=== PATIENT | male | born 1950 | race Caucasian/White ===

== ENCOUNTER 2023-05-16 22:05 | Emergency (ER) | payer MEDICARE, BC, SELFPAY ==
[2023-05-16 22:09] VITALS: BP 111/67; PULSE 98; RESP 18; TEMP 37.7; O2SAT 98; BMI 21.3
--- NOTE | 2023-05-16 22:42 | ED_ITS ---
HPI - General Adult General Date Seen: 05/16/23 <Melissa Mack MD - Last Filed: 05/18/23 08:04> Chief complaint: Post Op Complication <Melissa Mack MD - Last Filed: 05/18/23 08:04> Stated complaint: Post-surgery - possible acute renal failure <Melissa Mack MD - Last Filed: 05/18/23 08:04> Time Seen by Provider: 05/16/23 22:27 <Melissa Mack MD - Last Filed: 05/18/23 08:04> Source: patient and family <Melissa Mack MD - Last Filed: 05/18/23 08:04> Mode of arrival: ambulatory <Melissa Mack MD - Last Filed: 05/18/23 08:04> Limitations: no limitations <Melissa Mack MD - Last Filed: 05/18/23 08:04> History of Present Illness HPI narrative: Patient is a 72-year-old who had left hip replacement at [facility] on Thursday, went home the same day. His daughter reports that on Thursday and even into he seemed to have a lot of energy but the past couple of days his energy level has been lower. He has a history of acute renal failure last time he had hip surgery and so his daughter was concerned that he might have renal failure again. He has been taking oxycodone, had some vomiting when he took tramadol and so he has been sticking to oxycodone. 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 He has had some soreness in the hip but says the incision is looked okay. No fevers. No further vomiting. He has not had a bowel movement since his surgery, is not on any kind of bowel regimen. Eating and drinking without difficulty. <Melissa Mack MD - Last Filed: 05/18/23 08:04> Related Data Home medications: Home Medications Medication Instructions Recorded Confirmed apixaban 2.5 mg tablet (Eliquis) 2.5 mg PO BID 05/16/23 05/16/23 ascorbic acid (vitamin C) 500 mg mg PO 05/16/23 capsule cholecalciferol (vitamin D3) 125 125 mcg PO DAILY 05/16/23 05/16/23 mcg (5,000 unit) capsule empagliflozin 10 mg tablet 10 mg PO DAILY 05/16/23 05/16/23 (Jardiance) eplerenone 50 mg tablet 100 mg PO DAILY 05/16/23 05/16/23 ferrous gluconate 324 mg (38 mg 324 mg PO DAILY 05/16/23 05/16/23 iron) tablet furosemide 20 mg tablet mg PO 05/16/23 metformin 500 mg tablet,extended 500 mg PO BID 05/16/23 05/16/23 release 24 hr omeprazole 20 mg capsule,delayed 20 mg PO BID 05/16/23 05/16/23 release oxycodone 5 mg tablet PO 05/16/23 rosuvastatin 20 mg tablet 20 mg PO QPM 05/16/23 05/16/23 sennosides 8.6 mg-docusate sodium 1 tab-cap PO BID 05/16/23 05/16/23 50 mg tablet (2-in-1 Laxative) tramadol 50 mg tablet PO 05/16/23 <Melissa Mack MD - Last Filed: 05/18/23 08:04> Allergies/adverse reactions: Allergies Allergy/AdvReac Type Severity Reaction Status Date / Time acetaminophen [From Tylenol] Allergy Severe Autoimmune Verified 05/16/23 22:22 Liver Disease celecoxib [From Celebrex] AdvReac Severe Acute Verified 05/16/23 22:22 Renal Failure NSAIDS (Non-Steroidal AdvReac Severe Acute Verified 05/16/23 22:22 Anti-Inflamma Renal Failure <Melissa Mack MD - Last Filed: 05/18/23 08:04> Review of Systems Status of ROS: Reports: 10 or more systems reviewed and unremarkable except as noted in History and below <Melissa Mack MD - Last Filed: 05/18/23 08:04> [facility] Social History: Social History Non-prescribed substance use: denies use <Melissa Mack MD - Last Filed: 05/18/23 08:04> Exam Narrative: Exam Narrative: Vital signs as noted above. In general, an alert, well-appearing patient. Looks comfortable. Head: Normocephalic, atraumatic. Eyes: Pupils are equal reactive. Extraocular movements are full. Conjunctivae are normal. ENT: Mucous membranes are moist. Neck: Supple without lymphadenopathy. Heart: Regular rate and rhythm. No murmur or rub. Lungs: Clear bilaterally. No increased work of breathing, crackles or wheezes. Abdomen: Soft and nontender. No organomegaly. Extremities: Well perfused. No edema. No calf tenderness. Pulses intact. Incision over the left hip has a dressing in place which was not removed. There is no surrounding erythema, swelling or significant bruising. Neurologic: Patient is alert and oriented to person and place. Speech is fluent. Face is symmetric. Moves all extremities equally. Affect: Normal. Skin: Warm and dry. Well perfused. <Melissa Mack MD - Last Filed: 05/18/23 08:04> Const: Vital Signs, click to edit/add: Vital Signs - 24 hr 05/16/23 22:09 05/16/23 23:37 Temperature 99.8 F H 98.6 F Pulse Rate [Pulse Oximeter] 98 Respiratory Rate 18 Blood Pressure [Ri ght Upper Arm] 111/67 Pulse Oximetry 98 Oxygen Delivery Me thod Room Air <Melissa Mack MD - Last Filed: 05/18/23 08:04> Vital Signs, click to edit/add: Vital Signs - 24 hr 05/16/23 22:09 05/16/23 23:37 Temperature 99.8 F H 98.6 F Pulse Rate [Pulse Oximeter] 98 Respiratory Rate 18 Blood Pressure [Ri ght Upper Arm] 111/67 Pulse Oximetry 98 Oxygen Delivery Me thod Room Air <Jeanie Ontiveros MD - Last Filed: 05/17/23 00:43> Documenting provider has reviewed patient's vital signs: yes <Melissa Mack MD - Last Filed: 05/18/23 08:04> Course Course ED Course: Overall exam is unremarkable. He does have a temperature of 99.8? here, I think reasonable to rule out a viral process as well as to do some labs to look for other infection although the wound itself looks good. Will of course also check kidney function, daughter feels he would benefit from some fluids as well. <Melissa Mack MD - Last Filed: 05/18/23 08:04> Reevaluation(s) Time of Reevaluation #1: 00:41 <Jeanie Ontiveros MD - Last Filed: 05/17/23 00:43> Reevaluation #1: Dr. Ontiveros- I assumed care from Dr. Mack. Repeat lactate is improving. TSH normal. Patient is starting to feel better after fluids. I suspect that postoperative fluid shifts combined with continued use of diuretics have contributed to the fatigue. There are no signs of acute renal failure or significant electrolyte abnormality. Viral swabs are negative. I reviewed his medication list, I do not see any offending agents. There has been no hypotension or tachycardia here. Mild initial low-grade fever, improved with no treatment. I suspect that he could be coming down with some mild virus, swabs were negative here. No signs of kidney failure. Likely mildly dehydrated from fluid shifts and or mild viral illness with no signs of significant disability. Recommend continued use of MiraLax, continuing through physical therapy postoperative regimen that was previously outlined. Alarm symptoms reviewed in writing. See discharge instructions. <Jeanie Ontiveros MD - Last Filed: 05/17/23 00:43> Vital Signs Vital signs: Initial Vital Signs Temperature 99.8 F H 05/16/23 22:09 Temperature Source Temporal Artery Scan 05/16/23 22:09 Pulse Rate 98 05/16/23 22:09 Respiratory Rate 18 05/16/23 22:09 Blood Pressure 111/67 05/16/23 22:09 Blood Pressure Mean 81 05/16/23 22:09 Blood Pressure Position Sitting 05/16/23 22:09 Pulse Oximetry 98 05/16/23 22:09 Oxygen Delivery Method Room Air 05/16/23 22:09 Vital Signs Temperature 99.8 F H 05/16/23 22:09 Pulse Rate 98 05/16/23 22:09 Respiratory Rate 18 05/16/23 22:09 Blood Pressure 111/67 05/16/23 22:09 Pulse Oximetry 98 05/16/23 22:09 Oxygen Delivery Method Room Air 05/16/23 22:09 Temperature 98.6 F 05/17/23 00:52 Pulse Rate 98 05/17/23 00:52 Respiratory Rate 18 05/17/23 00:52 Blood Pressure 111/67 05/17/23 00:52 Pulse Oximetry 98 05/16/23 22:09 Oxygen Delivery Method Room Air 05/16/23 22:09 <Melissa Mack MD - Last Filed: 05/18/23 08:04> Initial Vital Signs Temperature 99.8 F H 05/16/23 22:09 Temperature Source Temporal Artery Scan 05/16/23 22:09 Pulse Rate 98 05/16/23 22:09 Respiratory Rate 18 05/16/23 22:09 Blood Pressure 111/67 05/16/23 22:09 Blood Pressure Mean 81 05/16/23 22:09 Blood Pressure Position Sitting 05/16/23 22:09 Pulse Oximetry 98 05/16/23 22:09 Oxygen Delivery Method Room Air 05/16/23 22:09 Vital Signs Temperature 99.8 F H 05/16/23 22:09 Pulse Rate 98 05/16/23 22:09 Respiratory Rate 18 05/16/23 22:09 Blood Pressure 111/67 05/16/23 22:09 Pulse Oximetry 98 05/16/23 22:09 Oxygen Delivery Method Room Air 05/16/23 22:09 Temperature 98.6 F 05/17/23 00:52 Pulse Rate 98 05/17/23 00:52 Respiratory Rate 18 05/17/23 00:52 Blood Pressure 111/67 05/17/23 00:52 Pulse Oximetry 98 05/16/23 22:09 Oxygen Delivery Method Room Air 05/16/23 22:09 <Jeanie Ontiveros MD - Last Filed: 05/17/23 00:43> Medications Administered Medications: Discontinued Medications Generic Name Dose Route Start Last Admin Trade Name Freq PRN Reason Stop Dose Admin Sodium Chloride 1,000 mls @ 1,000 mls/hr 05/16/23 22:45 05/16/23 23:38 0.9 % Sodium Chloride 1000 Ml IV 05/16/23 23:44 Infused .Q1H XU Infusion Sodium Chloride 1,000 mls @ 1,000 mls/hr 05/16/23 23:45 05/17/23 00:17 0.9 % Sodium Chloride 1000 Ml IV 05/17/23 00:44 Infused .Q1H XU Infusion <Melissa Mack MD - Last Filed: 05/18/23 08:04> Discontinued Medications Generic Name Dose Route Start Last Admin Trade Name Freq PRN Reason Stop Dose Admin Sodium Chloride 1,000 mls @ 1,000 mls/hr 05/16/23 22:45 05/16/23 23:38 0.9 % Sodium Chloride 1000 Ml IV 05/16/23 23:44 Infused .Q1H XU Infusion Sodium Chloride 1,000 mls @ 1,000 mls/hr 05/16/23 23:45 05/17/23 00:17 0.9 % Sodium Chloride 1000 Ml IV 05/17/23 00:44 Infused .Q1H XU Infusion <Jeanie Ontiveros MD - Last Filed: 05/17/23 00:43> Medical Decision Making Lab Data Lab results reviewed: Yes I reviewed the patient's lab results <Jeanie Ontiveros MD - Last Filed: 05/17/23 00:43> Lab results narrative: No significant leukocytosis. Initially elevated lactate improved after IV fluids given. Normal TSH. Urinalysis does not show overwhelming dehydration, ketones or other major abnormalities. Overall reassuring. dr. ontiveros <Jeanie Ontiveros MD - Last Filed: 05/17/23 00:43> Labs: Lab Results 05/16/23 05/16/23 05/16/23 Range/Units 22:39 22:51 22:58 WBC 5.67 (4.50-11.00) K/uL RBC 3.10 L (4.30-5.90) m/uL Hgb 10.3 L (13.5-17.5) gm/dL Hct 30.2 L (37.0-53.0) % MCV 97 (80-100) fL MCH 33 (26-34) pg MCHC 34 (32-36) gm/dL RDW Coeff of Arelis 14.8 (11.5-15.5) % Plt Count 83 L (140-440) K/uL Neut % (Auto) 75.2 H (42.0-72.0) % Lymph % (Auto) 12.2 L (20-44) % [place] % (Auto) 10.1 (0.0-11.0) % Eos % (Auto) 2.1 (0.0-7.0) % Baso % (Auto) 0.2 (0.0-3.0) % Neut # (Auto) 4.30 (1.7-7.0) K/uL Lymph # (Auto) 0.70 L (0.90-2.90) K/uL [place] # (Auto) 0.60 (0.00-0.90) K/UL Eos # (Auto) 0.12 (0.00-0.50) K/uL Baso # (Auto) 0.01 (0.00-0.30) K/uL Abs Immat Gran (auto) 0.01 (0.00-0.30) K/uL Imm/Tot Granulo (auto) 0.2 % Sodium 130 L (135-149) mmol/L Potassium 3.5 L (3.6-5.1) mmol/L Chloride 98 (96-114) mmol/L Carbon Dioxide 23 (20-32) mmol/L Anion Gap 9 (7-15) mEq/L BUN 28 (7-30) mg/dL Creatinine 1.2 (0.5-1.5) mg/dL Estimated Creat Clear 48.51 Estimated GFR 63 ml/min Glucose 238 H (60-115) mg/dL Lactate 4.6 H* (0.5-1.9) mmol/L Calcium 8.8 (8.4-10.6) mg/dL Magnesium 1.9 (1.5-2.6) mg/dL TSH 2.920 (0.270-4.200) uIU/mL Urine Color Yellow (Yellow) Urine Appearance Clear (Clear) Urine pH 5.5 (5.0-8.5) Ur Specific Lyman 1.010 (1.000-1.030) Urine Protein Negative (Negative) Urine Glucose (UA) 3+ A (Negative) Urine Ketones Negative (Negative) Urine Blood Trace-intact A (Negative) Urine Nitrite Negative (Negative) Urine Bilirubin Negative (Negative) Urine Urobilinogen 1.0 (0.2-1.0) Ur Leukocyte Esterase Negative (Negative) Urine RBC 2-5 A (0-2) Urine WBC 2-5 (0-5) Ur Squamous Epith Cells Few (None-Few) Urine Bacteria Few A (None) SARS-CoV-2 (PCR) Negative SARS-CoV-2 (Negative) Influenza Type A (PCR) Negative PCR FLU A (Negative) Influenza Type B (PCR) Negative PCR FLU B (Negative) RSV (PCR) Negative PCR RSV (Negative) 05/17/23 Range/Units 00:20 WBC (4.50-11.00) K/uL RBC (4.30-5.90) m/uL Hgb (13.5-17.5) gm/dL Hct (37.0-53.0) % MCV (80-100) fL MCH (26-34) pg MCHC (32-36) gm/dL RDW Coeff of Arelis (11.5-15.5) % Plt Count (140-440) K/uL Neut % (Auto) (42.0-72.0) % Lymph % (Auto) (20-44) % [place] % (Auto) (0.0-11.0) % Eos % (Auto) (0.0-7.0) % Baso % (Auto) (0.0-3.0) % Neut # (Auto) (1.7-7.0) K/uL Lymph # (Auto) (0.90-2.90) K/uL [place] # (Auto) (0.00-0.90) K/UL Eos # (Auto) (0.00-0.50) K/uL Baso # (Auto) (0.00-0.30) K/uL Abs Immat Gran (auto) (0.00-0.30) K/uL Imm/Tot Granulo (auto) % Sodium (135-149) mmol/L Potassium (3.6-5.1) mmol/L Chloride (96-114) mmol/L Carbon Dioxide (20-32) mmol/L Anion Gap (7-15) mEq/L BUN (7-30) mg/dL Creatinine (0.5-1.5) mg/dL Estimated Creat Clear Estimated GFR ml/min Glucose (60-115) mg/dL Lactate 2.7 H (0.5-1.9) mmol/L Calcium (8.4-10.6) mg/dL Magnesium (1.5-2.6) mg/dL TSH (0.270-4.200) uIU/mL Urine Color (Yellow) Urine Appearance (Clear) Urine pH (5.0-8.5) Ur Specific Lyman (1.000-1.030) Urine Protein (Negative) Urine Glucose (UA) (Negative) Urine Ketones (Negative) Urine Blood (Negative) Urine Nitrite (Negative) Urine Bilirubin (Negative) Urine Urobilinogen (0.2-1.0) Ur Leukocyte Esterase (Negative) Urine RBC (0-2) Urine WBC (0-5) Ur Squamous Epith Cells (None-Few) Urine Bacteria (None) SARS-CoV-2 (PCR) (Negative) Influenza Type A (PCR) (Negative) Influenza Type B (PCR) (Negative) RSV (PCR) (Negative) <Melissa Mack MD - Last Filed: 05/18/23 08:04> Lab Results 05/16/23 05/16/23 05/16/23 Range/Units 22:39 22:51 22:58 WBC 5.67 (4.50-11.00) K/uL RBC 3.10 L (4.30-5.90) m/uL Hgb 10.3 L (13.5-17.5) gm/dL Hct 30.2 L (37.0-53.0) % MCV 97 (80-100) fL MCH 33 (26-34) pg MCHC 34 (32-36) gm/dL RDW Coeff of Arelis 14.8 (11.5-15.5) % Plt Count 83 L (140-440) K/uL Neut % (Auto) 75.2 H (42.0-72.0) % Lymph % (Auto) 12.2 L (20-44) % [place] % (Auto) 10.1 (0.0-11.0) % Eos % (Auto) 2.1 (0.0-7.0) % Baso % (Auto) 0.2 (0.0-3.0) % Neut # (Auto) 4.30 (1.7-7.0) K/uL Lymph # (Auto) 0.70 L (0.90-2.90) K/uL [place] # (Auto) 0.60 (0.00-0.90) K/UL Eos # (Auto) 0.12 (0.00-0.50) K/uL Baso # (Auto) 0.01 (0.00-0.30) K/uL Abs Immat Gran (auto) 0.01 (0.00-0.30) K/uL Imm/Tot Granulo (auto) 0.2 % Sodium 130 L (135-149) mmol/L Potassium 3.5 L (3.6-5.1) mmol/L Chloride 98 (96-114) mmol/L Carbon Dioxide 23 (20-32) mmol/L Anion Gap 9 (7-15) mEq/L BUN 28 (7-30) mg/dL Creatinine 1.2 (0.5-1.5) mg/dL Estimated Creat Clear 48.51 Estimated GFR 63 ml/min Glucose 238 H (60-115) mg/dL Lactate 4.6 H* (0.5-1.9) mmol/L Calcium 8.8 (8.4-10.6) mg/dL Magnesium 1.9 (1.5-2.6) mg/dL TSH 2.920 (0.270-4.200) uIU/mL Urine Color Yellow (Yellow) Urine Appearance Clear (Clear) Urine pH 5.5 (5.0-8.5) Ur Specific Lyman 1.010 (1.000-1.030) Urine Protein Negative (Negative) Urine Glucose (UA) 3+ A (Negative) Urine Ketones Negative (Negative) Urine Blood Trace-intact A (Negative) Urine Nitrite Negative (Negative) Urine Bilirubin Negative (Negative) Urine Urobilinogen 1.0 (0.2-1.0) Ur Leukocyte Esterase Negative (Negative) Urine RBC 2-5 A (0-2) Urine WBC 2-5 (0-5) Ur Squamous Epith Cells Few (None-Few) Urine Bacteria Few A (None) SARS-CoV-2 (PCR) Negative SARS-CoV-2 (Negative) Influenza Type A (PCR) Negative PCR FLU A (Negative) Influenza Type B (PCR) Negative PCR FLU B (Negative) RSV (PCR) Negative PCR RSV (Negative) 05/17/23 Range/Units 00:20 WBC (4.50-11.00) K/uL RBC (4.30-5.90) m/uL Hgb (13.5-17.5) gm/dL Hct (37.0-53.0) % MCV (80-100) fL MCH (26-34) pg MCHC (32-36) gm/dL RDW Coeff of Arelis (11.5-15.5) % Plt Count (140-440) K/uL Neut % (Auto) (42.0-72.0) % Lymph % (Auto) (20-44) % [place] % (Auto) (0.0-11.0) % Eos % (Auto) (0.0-7.0) % Baso % (Auto) (0.0-3.0) % Neut # (Auto) (1.7-7.0) K/uL Lymph # (Auto) (0.90-2.90) K/uL [place] # (Auto) (0.00-0.90) K/UL Eos # (Auto) (0.00-0.50) K/uL Baso # (Auto) (0.00-0.30) K/uL Abs Immat Gran (auto) (0.00-0.30) K/uL Imm/Tot Granulo (auto) % Sodium (135-149) mmol/L Potassium (3.6-5.1) mmol/L Chloride (96-114) mmol/L Carbon Dioxide (20-32) mmol/L Anion Gap (7-15) mEq/L BUN (7-30) mg/dL Creatinine (0.5-1.5) mg/dL Estimated Creat Clear Estimated GFR ml/min Glucose (60-115) mg/dL Lactate 2.7 H (0.5-1.9) mmol/L Calcium (8.4-10.6) mg/dL Magnesium (1.5-2.6) mg/dL TSH (0.270-4.200) uIU/mL Urine Color (Yellow) Urine Appearance (Clear) Urine pH (5.0-8.5) Ur Specific Lyman (1.000-1.030) Urine Protein (Negative) Urine Glucose (UA) (Negative) Urine Ketones (Negative) Urine Blood (Negative) Urine Nitrite (Negative) Urine Bilirubin (Negative) Urine Urobilinogen (0.2-1.0) Ur Leukocyte Esterase (Negative) Urine RBC (0-2) Urine WBC (0-5) Ur Squamous Epith Cells (None-Few) Urine Bacteria (None) SARS-CoV-2 (PCR) (Negative) Influenza Type A (PCR) (Negative) Influenza Type B (PCR) (Negative) RSV (PCR) (Negative) <Jeanie Ontiveros MD - Last Filed: 05/17/23 00:43> Discharge Plan Discharge Clinical Impression: Dehydration <Melissa Mack MD - Last Filed: 05/18/23 08:04> Patient Disposition: Home, Self-Care <Melissa Mack MD - Last Filed: 05/18/23 08:04> Condition: Improved <Melissa Mack MD - Last Filed: 05/18/23 08:04> Instructions: Dehydration (ED) <Melissa Mack MD - Last Filed: 05/18/23 08:04> Additional Instructions: Continue to work on hydration at home. I would recommend he start MiraLax 1-2 cap fulls daily until you are having soft bowel movements. If you have significant abdominal pain, vomiting, develop fevers or other worsening, return for re-evaluation. Workup today shows kidney function to be within normal limits with a creatinine of 1.2. Viral swabs for influenza and COVID were also negative, electrolytes look good too. Continue to drink plenty of fluids, move and increase your activity per the instructions previously given by your surgical team. If things seem to be worsening again, please return to the emergency department. <Melissa Mack MD - Last Filed: 05/18/23 08:04> Activity Level: Activity as Tolerated <Melissa Mack MD - Last Filed: 05/18/23 08:04> Activity as Tolerated <Jeanie Ontiveros MD - Last Filed: 05/17/23 00:43> Discharge Diet: Regular <Melissa Mack MD - Last Filed: 05/18/23 08:04> Regular <Jeanie Ontiveros MD - Last Filed: 05/17/23 00:43> Prescriptions: No Action Eliquis 2.5 mg tablet 2.5 mg PO BID Jardiance 10 mg tablet 10 mg PO DAILY ascorbic acid (vitamin C) 500 mg capsule PO cholecalciferol (vitamin D3) 125 mcg (5,000 unit) capsule 125 mcg PO DAILY furosemide 20 mg tablet PO eplerenone 50 mg tablet 100 mg PO DAILY ferrous gluconate 324 mg (38 mg iron) tablet 324 mg PO DAILY tramadol 50 mg tablet PO omeprazole 20 mg capsule,delayed release(DR/EC) 20 mg PO BID metformin 500 mg tablet extended release 24 hr 500 mg PO BID oxycodone 5 mg tablet PO rosuvastatin 20 mg tablet 20 mg PO QPM sennosides-docusate sodium [2-in-1 Laxative] 8.6-50 mg tablet 1 tab-cap PO BID <Melissa Mack MD - Last Filed: 05/18/23 08:04> Follow Up/Referrals: Provider,Not a Local [Referring] - <Melissa Mack MD - Last Filed: 05/18/23 08:04> Stand Alone Forms: MyHealth Info Instructions <Melissa Mack MD - Last Filed: 05/18/23 08:04>
[2023-05-16 23:04] LABS: Appearance Urine Clear (Clear); Bilirubin Urine Negative (Negative); Blood Urine Trace-intact (Negative); Color Urine Yellow (Yellow); Glucose Urine 3+ (Negative); Ketones Urine Negative (Negative); Leukocyte Esterase Urine Negative (Negative); Nitrite Urine Negative (Negative); Protein Urine Negative (Negative); pH Urine 5.5 (5.0-8.5)
[2023-05-16] MEDS: 0.9 % SODIUM CHLORIDE 1000 ml 1,000 ML IV ×2 (23:06→23:43)
[2023-05-16 23:12] LABS: Basophils Absolute Auto 0.01 K/uL (0.00-0.30); Basophils Percent Auto 0.2 % (0.0-3.0); Eosinophils Absolute Auto 0.12 K/uL (0.00-0.50); Eosinophils Percent Auto 2.1 % (0.0-7.0); Hematocrit 30.2 % (37.0-53.0); Hemoglobin* 10.3 gm/dL (13.5-17.5); Immature Granulocytes Abs Auto 0.01 K/uL (0.00-0.30); Immature Granulocytes Pct Auto 0.2 %; Lymphocytes Percent Auto 12.2 % (20-44); Mean Corpuscular HGB Conc 34 gm/dL (32-36); Mean Corpuscular Hemoglobin 33 pg (26-34); Mean Corpuscular Volume 97 fL (80-100); Monocytes Percent Auto 10.1 % (0.0-11.0); Neutrophils Percent Auto 75.2 % (42.0-72.0); Platelet Count* 83 K/uL (140-440); RDW Coefficient of Variation % 14.8 % (11.5-15.5); White Blood Count* 5.67 K/uL (4.50-11.00)
[2023-05-16 23:18] LABS: Slide Review Reflex No
[2023-05-16 23:28] LABS: Chloride* 98 mmol/L (96-114); Potassium* 3.5 mmol/L (3.6-5.1); Sodium* 130 mmol/L (135-149)
[2023-05-16 23:30] LABS: Creatinine* 1.2 mg/dL (0.5-1.5); Est. Creatinine Clearance* 48.51; Estimated Glomerular Filt Rate 63 ml/min
[2023-05-16 23:31] LABS: Anion Gap 9 mEq/L (7-15); Blood Urea Nitrogen* 28 mg/dL (7-30); Calcium* 8.8 mg/dL (8.4-10.6); Carbon Dioxide* 23 mmol/L (20-32); Glucose* 238 mg/dL (60-115); Lactate Sepsis w/Reflex* 4.6 mmol/L (0.5-1.9); Magnesium* 1.9 mg/dL (1.5-2.6)
[2023-05-16 23:36] LABS: PCR FLU A Negative PCR FLU A (Negative); PCR FLU B Negative PCR FLU B (Negative); PCR RSV Negative PCR RSV (Negative); SARS PCR* Negative SARS-CoV-2 (Negative)
[2023-05-16 23:37] VITALS: TEMP 37
[2023-05-17 00:21] LABS: Bacteria Urine Few; Squamous Epithelial Cell Urine Few (None-Few)
[2023-05-17 00:29] LABS: Lactate* 2.7 mmol/L (0.5-1.9)
[2023-05-17 00:52] VITALS: BP 111/67; PULSE 98; RESP 18; TEMP 37
== END 2023-05-17 00:52 | disposition home or self-care (01) ==
PROVIDERS: Emergency Medicine; Emergency Provider Family Medicine; PCP Family Medicine
DX: E86.0 Dehydration (principal)
CPT/HCPCS: 36415; 80048; 81001; 83605; 83735; 84443; 85025; 87086; 87631; 99283; 99284; J7030

== ENCOUNTER 2023-09-09 20:58 | Outpatient (CLI) | payer MEDICARE, BC, SELFPAY ==
--- OUTSIDE RECORDS SUMMARY | 2023-09-12 06:10 | XMS_ITS | Referral Summary ---
Author Organization [facility] Address [address] [place] [address] Care Team Providers Care Wrist Hemmer Name Role Phone Elsewhere, Pcp Primary Care Provider Unavailabl e Source Comments Patient records contain information from all sites at [facility]. For routine questions regarding patient records, call [phone] during business hours, M-F 8:00 AM - 5:00 PM Central Time. Record requests for emergency care only can be directed to [phone] at any time.[facility] Encounters Date Type Department Care Team Description 09/09/2023 10:39 PM CDT - 09/10/2023 12:00 PM CDT Hospital Encounter [facility], Tenth Floor [address] [place] [address] Elias Stuart M.D. Huebert, Robert C, M.D. Colitis (Primary Dx) Discharge Disposition: Home or Self Care 09/04/2023 8:05 AM CDT - 09/05/2023 12:54 PM CDT Hospital Encounter [facility], Tenth Floor [address] [place] [address] Elen Gomes M.D., Ph.D. Discharge Disposition: Home or Self Care 09/04/2023 1:00 PM CDT Anesthesia Event [facility] [address] [place] [address] Abner Cohen M.D. 09/04/2023 12:33 PM CDT - 09/04/2023 3:32 PM CDT Surgery [facility] [address] [place] [address] Elen Gomes M.D., Ph.D. REPAIR HERNIA UMBILICAL WITHOUT MESH. 09/03/2023 12:08 PM CDT - 09/03/2023 11:59 PM CDT Hospital Encounter Department of Radiology, [facility], in [place], [place] [address] [place] [address] Elen Gomes M.D., Ph.D. Hydrocele Discharge Disposition: Home or Self Care 09/03/2023 11:00 AM CDT Office Visit [facility] in [place], [place] [address] [place] [address] Elen Gomes M.D., Ph.D. Chronic Liver Disease (Primary Dx) 09/01/2023 Orders Only [facility] in [place], [place] [address] [place] [phone] Elen Gomes M.D., Ph.D. Hydrocele (Primary Dx) 08/28/2023 Remote Monitoring Remote Patient Monitoring [facility] [address] [place] [address] Briana Mayo 08/24/2023 10:17 PM CDT - 08/28/2023 1:11 PM CDT Hospital Encounter [facility], [facility], Sixth Floor [address] [place] [address] Yao Yoon M.D. Laack, Torrey A, M.D. Sievers, Ashley E, M.D. Moore, Peter J, M.D. Gypsy Lu M.D. Pearson, Randall K, M.D. Hoskote, Sumedh S, M.B.BMarcusS. Pneumonia (Primary Dx); Food In Esophagus Causing Other Injury Initial; Acidosis Lactic Discharge Disposition: Home or Self Care 08/27/2023 2:05 PM CDT Ancillary Procedure Department of Nursing 08/27/2023 Orders Only Division of Gastroenterology in [place], [place] [address] [place] [phone] Fabiola Reyes M.D. Gastro-Esophageal Reflux Disease With Esophagitis Without Bleeding (Primary Dx); Secondary Esophageal Varices Without Bleeding (HCC); Hypertension Portal (HCC); Stricture Esophagus 08/25/2023 7:30 AM CDT Ancillary Procedure Department of Gastroenterology 08/25/2023 8:09 AM CDT Anesthesia Event Division of Gastroenterology in [place], [place] [address] [place] [phone] Ken Franks, JENNIFER, METHODS ENGINEER 08/12/2023 11:33 AM CDT - 08/12/2023 11:59 PM CDT Hospital Encounter Department of Laboratory Medicine and Pathology, [facility] in [place], [place] [address] [place] [phone] Marv Myrick M.D., M.P.H. Alcoholic Cirrhosis Of Liver With Ascites (HCC) Discharge Disposition: Home or Self Care 08/12/2023 1:30 PM CDT Comprehensive [facility] in [place], [place] [address] [place] [phone] Elen Gomes M.D., Ph.D. Hernia Inguinal Bilateral (Primary Dx); Hernia Inguinal 08/12/2023 10:14 AM CDT - 08/12/2023 11:32 AM CDT Hospital Encounter Department of Radiology, [facility] in [place], [place] [address] [place] [phone] Whitney Feliciano P.A.-C., P.A. 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 Hernia Inguinal (Primary Dx); Alcoholic Cirrhosis Of Liver With Ascites (HCC) 07/13/2023 12:30 PM CDT Virtual Visit Division of Gastroenterology in [place], [place] [address] [place] [phone] Marv Myrick M.D., M.P.H. Hepatitis Autoimmune (HCC); Cirrhosis Nonalcoholic (HCC); Ascites Chronic 07/10/2023 1:56 PM CDT - 07/10/2023 3:28 PM CDT Hospital Encounter Department of Radiology, [facility] in [place], [place] [address] [place] [address] Marv Myrick M.D., M.P.H. Hepatitis Autoimmune (HCC); Cirrhosis Nonalcoholic (HCC); Ascites Chronic Discharge Disposition: Home or Self Care 07/07/2023 Clinical Communication Division of Gastroenterology in [address] [phone] Marv Myrick M.D., M.P.H. Hepatobiliary; Order Request from Last 3 Months Allergies Active Allergy Reactions Criticality Noted Date Comments 2-Octyl Cyanoacrylate Itching 05/28/2023 Acetaminophen Other (see comments),GI intolerance High 09/02/2011 drug induced hepititis Drug induced Hepatitis Drug induced Hepatitis Celecoxib Other (see comments) 06/12/2020 Patient hospitalized for Acute Kidney Injury for 4 days after taking Celebrex preop while on Lisinopril Patient hospitalized for Acute Kidney Injury for 4 days after taking Celebrex preop while on Lisinopril Kidney Failure Medications Medication Sig Dispensed Refills Start Date End Date Status cholecalciferol (VITAMIN D3) 125 mcg (5,000 Unit) tablet Take 125 mcg by mouth daily. Active metFORMIN XR (GLUCOPHAGE-XR) 500 mg 24 hr tablet Take 500 mg by mouth 2 (two) times a day. Active ferrous gluconate (FERGON) 324 mg (38 mg iron) tablet Take 324 mg by mouth daily. Active furosemide (LASIX) 20 mg tablet Take 40 mg by mouth 2 (two) times a day. 07/05/2020 Active omeprazole (PriLOSEC) [address] capsule Take 20 mg by mouth every morning before breakfast. 07/20/2020 Active rosuvastatin (CRESTOR) 20 mg tablet Take 20 mg by mouth daily. 05/15/2020 Active empagliflozin (JARDIANCE) 10 mg tablet Take 1 tablet by mouth daily. 12/05/2020 Active eplerenone (INSPRA) 50 mg tabletIndicatio ns:Ascites Chronic Take 2 tablets (100 mg total) by mouth daily. 180 tablet 3 01/12/2023 01/12/20 24 Active polyethylene glycol (MIRALAX) 17 gram powder packet Take 1 packet (17 g total) by mouth daily. Dissolve each 17 g dose in 240 mLs (8 ounces) of beverage. 20 packet 08/29/2023 Active sennosides-docu sate sodium (SENOKOT-S) 8.6-50 mg per tablet Take 2 tablets by mouth 2 (two) times a day. 30 tablet 08/28/2023 Active ascorbic acid, vitamin C, (VITAMIN C) 500 mg tablet Take 500 mg by mouth daily. 08/25/19 24 Discontinued(The rapy completed) apixaban (ELIQUIS) 2.5 mg tablet Take 1 tablet (2.5 mg total) by mouth 2 (two) times a day. Take to minimize the risk for developing a blood clot. After your last dose of this medication start taking aspirin if this was recommended. 84 tablet 05/13/2023 08/25/19 24 Discontinued(The rapy completed) traMADoL (ULTRAM) 50 mg tabletIndicatio ns:Acute Pain Exception Take 1 tablet (50 mg total) by mouth every 4 (four) hours as needed for pain Indications: Acute Pain Exception. 25 tablet 05/13/2023 08/25/19 24 Discontinued(The rapy completed) oxyCODONE (ROXICODONE) 5 mg immediate release tabletIndicatio ns:Acute Pain Exception Take 1 tablet (5 mg total) by mouth every 4 (four) hours as needed for severe pain or score 7-10 of 10 Indication: Acute Pain Exception. 25 tablet 05/13/2023 08/25/19 24 Discontinued(The rapy completed) metroNIDAZOLE (FLAGYL) 500 mg tabletIndicatio ns:Blood stream infection Take 1 tablet (500 mg total) by mouth 3 (three) times a day for 11 days Indications: Blood stream infection. 33 tablet 08/28/2023 09/10/19 24 Discontinued levoFLOXacin (LEVAQUIN) 750 mg tablet Take 1 tablet (750 mg total) by mouth every morning before breakfast for 10 days. 10 tablet 08/29/2023 09/10/19 24 Discontinued oxyCODONE (ROXICODONE) 5 mg immediate release tabletIndicatio ns:Acute Pain Take 1 tablet (5 mg total) by mouth every 4 (four) hours as needed for pain for up to 3 days Indication: Acute Pain. 18 tablet 09/05/2023 09/10/19 24 Active Problems Problem Noted Date Diagnosed Date Colitis 09/10/2023 Abdominal Pain 09/10/2023 Hernia Inguinal Left 09/04/2023 Pneumonitis Due To Inhalation Of Food And Vomit 08/26/2023 Sepsis 08/25/2023 Primary Osteoarthritis Hip Left 11/19/2022 Thrombocytopenia 05/12/2022 Thrombosis Deep Vein Personal History 02/01/2022 Diabetes Mellitus Type 2 08/07/2021 Hypertension Essential Primary 08/07/2021 Ascites 07/20/2020 Gastroesophageal Reflux Disease NOS 06/25/2020 Hypertension Portal 06/25/2020 Hyperlipidemia 06/25/2020 Hepatitis Autoimmune 10/13/2018 Secondary Esophageal Varices Without Bleeding Unspecified Cirrhosis Of Liver 08/25/2018 Stricture Esophagus Resolved Problems Problem Noted Date Diagnosed Date Resolved Date Pneumonia 08/25/2023 08/26/2023 Thrombosis Deep Vein Acute Femoral Right 05/12/2023 05/12/2023 Immunizations Name Administration Dates Next Due Influenza Split 12/22/2007 Social History Tobacco Use Types Packs/Day Years Used Date Smoking Tobacco: Never Smokeless Tobacco: Never Alcohol Use Standard Drinks/Week Comments Not Currently 0 (1 standard drink = 0.6 oz pur e alcohol) Don? t drink [facility] Utilities Answer Date Recorded In the past 12 months has th e electric, gas, oil, or water company threatened to shut off services in your home? No 09/10/2023 Humiliation, Afraid, Rape, and Kick questionnair e Answer Date Recorded Within the last year, have y ou been afraid of your partner or ex-partner? No 09/10/2023 Within the last year, have y ou been humiliated or emotionally abused in other ways by your partner or ex-partner? No Within the last year, have y ou been kicked, hit, slapped, or otherwise physically hurt by your partner or ex-partner? No 09/10/2023 Within the last year, have y ou been raped or forced to have any kind of sexual activity by your partner or ex-partner? No 09/10/2023 Social Connection and Isolat ion Panel [NHANES] Answer Date Recorded In a typical week, how many times do you talk on the phone with family, friends, or neighbors? More than three times a week 04/27/2022 How often do you get togethe r with friends or relatives? Twice a week 04/27/2022 How often do you attend chur ch or yazidism services? More than 4 times per year 04/27/2022 Do you belong to any clubs o r organizations such as nondenominational groups, unions, fraternal or athletic groups, or school groups? Yes 04/27/2022 How often do you attend meet ings of the clubs or organizations you belong to? More than 4 times per year 04/27/2022 Are you , , di vorced, , never , or living with a partner? 04/27/2022 AUDIT-C Answer Date Recorded Q1: How often do you have a drink containing alc ohol? Never 04/27/2022 Average Number of Drinks Not on file 023 Frequency of Binge Drinking Not on file 07/2022 Overall Financial Resource Strain (CARDIA) Answe r Date Recorded How hard is it for you to pa y for the very basics like food, housing, medical care, and heating? Not hard at all 04/27/2022 [facility] of Occupat ional Health - Occupational Stress Questionnaire Answer Date Recorded Do you feel stress - tense, restless, nervous, or anxious, or unable to sleep at night because your mind is troubled all the time - these days? Not at all 04/27/2022 Exercise Vital Sign Answer Date Recorde d On average, how many days pe r week do you engage in moderate to strenuous exercise (like a brisk walk)? 0 days 05/07/2023 On average, how many minutes do you engage in exercise at this level? 0 min 05/07/2023 Hunger Vital Sign Answer Date Recorded Within the past 12 months, y ou worried that your food would run out before you got the money to buy more. Never true 09/10/19 24 Within the past 12 months, t he food you bought just didn't last and you didn't have money to get more. Never true 09/10/2023 PRAPARE - Transportation Answer Date Re corded In the past 12 months, has l ack of transportation kept you from medical appointments or from getting medications? No 08/22 In the past 12 months, has l ack of transportation kept you from meetings, work, or from getting things needed for daily living? No 09/10/2023 Nutrition Answer Date Recorded On average, how many serving s of fruits and vegetables do you eat per day (serving size is equal to 1 cup or approximately the size of a tennis ball)? 3-5 05/07/2023 Dental Answer Date Recorded Dental: Regular Dentist Yes 11/12/19 Employment Answer Date Recorded Employment status Retired 05/07/2023 Housing Stability Answer Date Recorded What is your living situation today? I have a [facility] place to live 09/10/2023 Education Answer Date Recorded What is the highest level of school you have completed or the highest degree you have received? Bachelor's degree (e.g., BA, AB, BS) 11/11/2020 Sex and Gender Information Value Date Recorded Sex Assigned at Male 02/12/2021 6:18 PM HOURLY SIGN LANGUAGE INTERPRETER Gender Identity Male 11/11/2020 11:30 AM CDT Sexual Orientation Straight 11/11/2020 11 :30 AM CDT Last Filed Vital Signs Vital Sign Reading Time Taken Comments Blood Pressure 94/60 09/10/2023 11:15 AM CDT Pulse 66 09/10/2023 11:15 AM CDT Temperature 36.4 ??C (97.5 ??F) 09/10/2023 1 1:15 AM CDT Respiratory Rate 18 09/10/2023 11:1 5 AM CDT Oxygen Saturation 97% 09/10/2023 11: 15 AM CDT Inhaled Oxygen Concentration - - Weight 57.5 kg (126 lb 12.2 oz) 09/10/2023 5:52 AM CDT Height 172.7 cm (5' 7.99) 09/10/2023 5:52 AM CD T Body Mass Index 19.28 09/10/2023 5:52 AM CDT Plan of Treatment Upcoming Encounters Date Type Department Care Team (Latest Contact Info) Description 09/17/2023 10:30 AM CDT [facility] [place], [place] [address] [place] [phone] Elen Gomes M.D., Ph.D. [address] [place] [phone] 10/16/2023 11:00 AM CDT Appointment Division of Gastroenterology in [place], [place] [address] [place] [phone] Marv Myrick M.D., M.P.H. [address] [place] [phone] Discharge Disposition: Home or Self Care 11/10/2023 8:00 AM CDT Appointment Department of Laboratory Medicine and Pathology, [facility], in [place], [place] [address] [place] [phone] Marv Myrick M.D., M.P.H. [address] [place] [phone] 11/10/2023 3:00 PM CDT Office Visit Division of Gastroenterology in [place], [place] [address] [place] [address] Marv Myrick M.D., M.P.H. [address] [place] [address] Medical Devices Implanted Type Area Manual Lathe Machinist Device Identifier Shelf Expiration Date Model / Serial / Lot Clp [facility] Endo 235 - [id number] Implanted:Qty: 1 on 02/12/2021 by Markie March M.D. at [facility] [employer] e.g. pins/screws /rods [employer] [id number] 09/01/2023 [id number] / / [id number] Description:Implanted in duo denum-polypectomy site. Clp Rsp [facility] Endo 235 - [id number] Implanted:Qty: 1 on 02/12/2021 by Markie March M.D. at [facility] [employer] e.g. pins/screws /rods [employer] [id number] 09/01/2023 [id number] / / [id number] Description:Implanted in duo denum at polypectomy site. Hip Implant Hip Implant Hip Description:Right hip replac ement Lnr X3 Mary Kate 40 - [id number] Implanted:Qty: 1 on 05/13/2023 by Pete Rojas M.D. at [facility] Hip Implant Left: Hip Marta 02/15/2028 723-00-4 0E / / [id number] Shll Acet Trd Chl 52e - [id number] Implanted:Qty: 1 on 05/13/2023 by Pete Rojas M.D. at [facility] Hip Implant Left: Hip Marta 03/02/2028 702-04-5 2E / / [id number] A Kn Stm Blx -2.5 - [id number] Implanted:Qty: 1 on 05/13/2023 by Pete Rojas M.D. at [facility] Hip Implant Left: Hip Marta 03/16/2028 6519-T-0 25 / / [id number] Fem Hd Blx +0x40 - [id number] Implanted:Qty: 1 on 05/13/2023 by Pete Rojas M.D. at [facility] Hip Implant Left: Hip [place] 02/16/2028 6519-1-0 40 / / [id number] Hip Stm Ins Hofst Sz8 67t500 - [id number] Implanted:Qty: 1 on 05/13/2023 by Pete Rojas M.D. at [facility] Hip Implant Left: Hip Marta 01/07/2026 7000-660 8 / / [id number] Shoulder Implant Shoulder Implant Shoulder Description:Right shoulder s urgery, screws placed Procedures Procedure Name Priority Date/Time Associated Diagnosis Comments LACTATE, B/P Timed 09/10/2023 4:10 AM CDT IFLU A, B, SARS COV-2, PCR, RAPID,V STAT 09/10/2023 1:46 AM CDT LACTATE FOR SEPSIS WITH REFLEX, POCT STAT 09/10/2023 1:[address] CHEST ANGIOGRAM AND PULMONARY ARTERIES WITH IV CONTRAST RAD - Semiurgent (Fast; most ED patients; some inpatients) 09/10/2023 12:[address] ABDOMEN PELVIS WITH IV CONTRAST RAD - Semiurgent (Fast; most ED patients; some inpatients) 09/10/2023 12:16 AM CDT BACTERIA / NEDA CULTURE, BLOOD STAT 09/09/2023 11:47 PM CDT BACTERIA / NEDA CULTURE, BLOOD STAT 09/09/2023 11:38 PM CDT LIPASE, S/P STAT 09/09/2023 11:01 PM CDT HEPATIC FUNCTION PANEL, S STAT 09/09/2023 11:01 PM CDT LACTATE, B STAT 09/09/2023 11:01 PM CDT BASIC METABOLIC PANEL, S/P STAT 09/09/2023 11:01 PM CDT CBC WITH DIFFERENTIAL, B STAT 09/09/2023 11:01 PM CDT PROTHROMBIN TIME (PT), P Routine 09/05/2023 9:36 AM CDT HEPATIC FUNCTION PANEL, S Routine 09/05/2023 9:36 AM CDT CBC WITHOUT DIFFERENTIAL, B Routine 09/05/2023 6:50 AM CDT BASIC METABOLIC PANEL, S/P Routine 09/05/2023 6:50 AM CDT GLUCOSE POCT, B Routine 09/04/2023 3:30 PM CDT ADULT OXYGEN THERAPY Routine 09/04/2023 2:54 PM CDT LDA ANE ENDOTRACHEAL AIRWAY Routine 09/04/2023 1:15 PM CDT HYDROCELECTOMY 09/04/2023 12:40 PM CDT Hernia REPAIR HERNIA UMBILICAL WITHOUT MESH 09/04/2023 12:40 PM CDT Hernia GLUCOSE POCT, B Routine 09/04/2023 12:25 PM CDT GLUCOSE POCT, B Routine 09/04/2023 8:49 AM CDT HEMOGLOBIN A1C, B Routine 09/04/2023 8:3 6 AM CDT US SCROTUM WITH DOPPLER RAD - Routine (most inpatients and all outpatients) 09/03/2023 1:59 PM CDT Hydrocele GLUCOSE POCT, B Routine 08/28/2023 12:23 PM CDT GLUCOSE POCT, B Routine 08/28/2023 8:54 AM CDT CBC WITHOUT DIFFERENTIAL, B Routine 08/28/2023 5:05 AM CDT BASIC METABOLIC PANEL, S/P Routine 08/28/2023 5:05 AM CDT GLUCOSE POCT, B Routine 08/27/2023 8:47 PM CDT GLUCOSE POCT, B Routine 08/27/2023 5:09 PM CDT NURSING IMAGE EXAM Routine 08/27/2023 2: [address] ABDOMEN PELVIS WITH IV CONTRAST RAD - Routine (most inpatients and all outpatients) 08/27/2023 12:39 PM CDT GLUCOSE POCT, B Routine 08/27/2023 11:23 AM CDT GLUCOSE POCT, B Routine 08/27/2023 7:54 AM CDT MAGNESIUM, S STAT 08/27/2023 6:07 AM CDT BASIC METABOLIC PANEL, S/P STAT 08/27/2023 6:07 AM CDT CBC WITH DIFFERENTIAL, B STAT 08/27/2023 6:07 AM CDT GLUCOSE POCT, B Routine 08/26/2023 5:58 PM CDT GLUCOSE POCT, B Routine 08/26/2023 3:41 PM CDT BACTERIA / NEDA CULTURE, BLOOD Routine 08/26/2023 3:16 PM CDT BACTERIA / NEDA CULTURE, BLOOD Routine 08/26/2023 3:[address] CHEST WITH IV CONTRAST RAD - Routine (most inpatients and all outpatients) 08/26/2023 2:13 PM CDT GLUCOSE POCT, B Routine 08/26/2023 12:38 PM CDT ECG Routine 08/26/2023 10:39 AM CDT LACTATE, B/P Timed 08/26/2023 10:35 AM CDT MC ANE INVASIVE CATHETER Routine 08/26/2023 10:31 AM CDT GLUCOSE POCT, B Routine 08/26/2023 9:09 AM CDT LACTATE FOR SEPSIS WITH REFLEX STAT 08/26/2023 7:28 AM CDT LACTATE, B/P Routine 08/26/2023 4:38 AM CDT IRON AND TOT IRON-BINDING CAPACITY, S/P Routine 08/26/2023 4:38 AM CDT FERRITIN, S Routine 08/26/2023 4:38 AM CDT MAGNESIUM, S Routine 08/26/2023 4:38 AM CDT RENAL FUNCTION PANEL, S Routine 08/26/2023 4:38 AM CDT CBC WITH DIFFERENTIAL, B Routine 08/26/2023 4:38 AM CDT LACTATE, B/P Timed 08/26/2023 12:02 AM CDT PATIENT STATUS STAT 08/25/2023 9:12 PM CDT VENOUS BLOOD GAS W/COOX, B STAT 08/25/2023 9:12 PM CDT LACTATE, B/P STAT 08/25/2023 9:12 PM CDT GLUCOSE POCT, B Routine 08/25/2023 9:10 PM CDT LACTATE, B/P Timed 08/25/2023 5:18 PM CDT CRITICAL CARE Routine 08/25/2023 5:05 PM CDT LACTATE, POCT, B STAT 08/25/2023 4:08 PM CDT HC URINALYSIS AUTO WO MICRO Routine 08/25/2023 3:35 PM CDT DIPSTICK, U STAT 08/25/2023 3:18 PM CDT HC OSMOLALITY ASSAY URINE STAT 08/25/2023 3:18 PM CDT PH, RANDOM, U STAT 08/25/2023 3:18 PM CDT MICROSCOPIC MANUAL STAT 08/25/2023 3: 18 PM CDT URINALYSIS WITH MICROSCOPIC STAT 08/25/2023 3:18 PM CDT BACTERIAL CULTURE, AEROBIC + SUSC, URINE STAT 08/25/2023 3:18 PM CDT DX CHEST AP OR PA AND LATERAL 2 VIEWS RAD - Semiurgent (Fast; most ED patients; some inpatients) 08/25/2023 2:25 PM CDT BACTERIA / NEDA CULTURE, BLOOD STAT 08/25/2023 2:12 PM CDT HEPATIC FUNCTION PANEL, S STAT 08/25/2023 2:11 PM CDT PROTHROMBIN TIME (PT), P STAT 08/25/2023 2:11 PM CDT BASIC METABOLIC PANEL, S/P STAT 08/25/2023 2:11 PM CDT CBC WITH DIFFERENTIAL, B STAT 08/25/2023 2:11 PM CDT VBG & LYTES CG8+, POCT, B STAT 08/25/2023 2:10 PM CDT LACTATE FOR SEPSIS WITH REFLEX, POCT STAT 08/25/2023 2:10 PM CDT GLUCOSE POCT, B STAT 08/25/2023 1:58 PM CDT BACTERIA / NEDA CULTURE, BLOOD STAT 08/25/2023 1:58 PM CDT ECG Semiurgent (Fast, most ED patients, some inpatients) 08/25/2023 1:42 PM CDT CYSTATIN C WITH EGFR Routine 08/25/2023 1:40 PM CDT LACTATE, POCT, B STAT 08/25/2023 11:53 AM CDT VBG & LYTES CG8+, POCT, B STAT 08/25/2023 11:53 AM CDT LDA ANE ENDOTRACHEAL AIRWAY Routine 08/25/2023 8:14 AM CDT GASTROENTEROLOGY IMAGE EXAM Routine 08/25/2023 7:30 AM CDT UPPER GI ENDOSCOPY STAT 08/25/2023 7: 26 AM CDT EGD (ESOPHAGEALGASTRODUODE NOSCOPY) STAT 08/25/2023 7:26 AM CDT CBC WITH DIFFERENTIAL, B Routine 08/12/2023 11:41 AM CDT Alcoholic Cirrhosis Of Liver With Ascites (HCC) BASIC METABOLIC PANEL, S/P Routine 08/12/2023 11:40 AM CDT Alcoholic Cirrhosis Of Liver With Ascites (HCC) HEPATIC FUNCTION PANEL, S Routine 08/12/2023 11:40 AM CDT Alcoholic Cirrhosis Of Liver With Ascites (HCC) DX HIP TO ANKLE STANDING RAD - Routine (most inpatients and all outpatients) 08/12/2023 10:54 AM CDT 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 DX HIP AND PELVIS LEFT 4+ VIEWS RAD - Routine (most inpatients and all outpatients) 08/12/2023 10:53 AM CDT 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 US PARACENTESIS WITH IMAGING GUIDANCE RAD - Routine (most inpatients and all outpatients) 07/10/2023 3:21 PM CDT Hepatitis Autoimmune (HCC) Cirrhosis Nonalcoholic (HCC) Ascites Chronic CELL COUNT AND DIFFERENTIAL, BF Timed 07/10/2023 2:53 PM CDT Hepatitis Autoimmune (HCC) Cirrhosis Nonalcoholic (HCC) Ascites Chronic BACTERIAL CULTURE, AEROBIC + SUSC Timed 07/10/2023 2:53 PM CDT Hepatitis Autoimmune (HCC) Cirrhosis Nonalcoholic (HCC) Ascites Chronic EXTI LIPID PANEL, S Routine 05/12/2022 8 :33 AM HOURLY SIGN LANGUAGE INTERPRETER OPHTHALMOLOGY IMAGE EXAM Routine 01/21/2016 12:00 AM CDT from Last 3 Months or Most Recently Relevant to Health Maintenance Results * (ABNORMAL) Lactate (09/10/2023 4:10 AM CDT) Only the most recent of6 resultswithin the time period is included. Lactate, P 3.0(H) 0.5 - 2.2 mmol/L 09/10/2023 4:29 AM CDT STMA Blood 09/10/2023 4:10 AM CDT 09/10/2023 4:15 AM CDT Quentin Saunders M.D. LAB BLOOD NON ADD-ON [facility] [address] [place] [address], [place] [facility] [address] [place] [address] * Influenza A/B, SARS CoV-2, PCR, Rapid Symptomatic (09/10/2023 1:46 AM CDT) Influenza A, PCR, Rapid, V Negative Negative 09/10/2023 2:15 AM CDT STMA Influenza B, PCR, Rapid, V Negative Negative 09/10/2023 2:15 AM CDT STMA SARS CoV-2, PCR, Rapid, V Undetected Undetected 09/10/2023 2:15 AM CDT STMA Comment: ----ADDITIONAL INFORMATION---- This RT-PCR test was performed using the [employer] SARS-CoV-2 and Influenza A/B Reagent assay from [employer], which has received Emergency Use Authorization(EUA) by the U.S. Food and Drug Administration. Fact sheets for this Emergency Use Authorization (EUA) assay can be found at the following links: For Healthcare Providers: https://www.fda.gov/media/031763/download For Patients: https://www.fda.gov/media/475930/download Infl A/B, SARS CoV-2, PCR, Source Swab, Nasopharynx 09/10/2023 1:52 AM CDT STMA Swab (Nasopharynx) 09/10/2023 1:46 AM CDT 09/10/2023 1:52 AM CDT Quentin Saunders M.D. LAB MICROBIOLOGY - [facility] [place] [address], [place] [address] * (ABNORMAL) Lactate for Sepsis with Reflex, POCT (09/10/2023 1:13 AM CDT) Only the most recent of2 resultswithin the time period is included. Pathologist [facility] Lactate, POCT 3.01(H) 0.50 - 2.20 mmol/L 09/10/2023 1:22 AM CDT PCLX Blood (Blood, Venous) 09/10/2023 1:13 AM CDT 09/10/2023 1:13 AM CDT Quentin Saunders M.D. LAB POCT ORDERABLES - DEVICE POC [facility] [address] [place] [address], [place] PCLX [facility] POC [address] [place] [address] * CT Chest Angiogram and Pulmonary Arteries with IV Contrast (09/10/2023 12:16 AM CDT) Anatomical Region Laterality Modality Chest, Cardiovascular RST LO S, Thoracic ARZ LOS, Thoracic FLA LOS N/A Computed Tomography, Compute d Tomography 09/10/2023 12:1 2 AM CDT Impressions 09/10/2023 8:28 AM CDT 1. ??Negative for acute pulmonary embolism. 2. ??Interval decreased extent of lower lobe opacities, suggestive of infectious/inflammatory process, including an exacerbation of ILD. 3. ??Interval increased colonic wall thickening involving the cecum and ascending colon as well as the terminal ileum, which may be seen in the setting of colitis/terminal ileitis. Findings could be seen in the setting of portal colopathy; although the interval progression from 08/27/2023 is not expected. 4. ??Postoperative changes umbilical hernia repair with mesh. Presumed postoperative pneumoperitoneum. 5. ??Cirrhosis with small volume abdominopelvic ascites. 6. ??Mild fibrotic interstitial lung disease. Narrative 09/10/2023 8:28 AM CDT EXAM: CT CHEST ANGIOGRAM AND PULMONARY ARTERIES WITH IV CONTRAST, CT ABDOMEN PELVIS WITH IV CONTRAST Including 3D image postprocessing with or without AI assistance. COMPARISON: CT chest 08/26/2023, CT abdomen pelvis 08/27/2023 FINDINGS: CT CHEST: Negative for acute pulmonary embolism. Since 08/26/2023, interval decreased extent of the bibasilar consolidative and groundglass opacities consistent with infectious/inflammatory process. Reticular peripheral opacities with mild areas of traction bronchiolectasis throughout the lungs suggest underlying fibrotic lung disease component. No new or enlarging pulmonary nodules. No thoracic lymphadenopathy by size criteria. Cardiac size is normal without pericardial effusion. Stable T8 vertebral body compression fracture. Resolved trace bilateral effusions. CT ABDOMEN/PELVIS: Postoperative changes umbilical hernia repair with mesh performed 09/04/2023. Left lateral abdominal approach drain with tip terminating in the lower right abdomen. Presumed postoperative foci of air within the abdomen. Cirrhosis with small volume abdominopelvic ascites. Normal gallbladder, pancreas, adrenal glands, and kidneys. Splenomegaly measuring up to 16.3 cm. Normal caliber bowel without evidence of obstruction. Interval increased colonic wall thickening involving the cecum, ascending colon, and terminal ileum. No abdominopelvic lymphadenopathy by size criteria. No acute vascular abnormality. Bilateral hip arthroplasties.. Procedure Note Antonio Iverson M.D. - 09/10/2023 EXAM: CT CHEST ANGIOGRAM AND PULMONARY ARTERIES WITH IV CONTRAST, CTABDOMEN PELVIS WITH IV CONTRAST Including 3D image postprocessing with or without AI assistance. COMPARISON: CT chest 08/26/2023, CT abdomen pelvis 08/27/2023 FINDINGS: CT CHEST: Negative for acute pulmonary embolism. Since 08/26/2023, interval decreased extent of the bibasilar consolidativeand groundglass opacities consistent with infectious/inflammatory process.Reticular peripheral opacities with mild areas of tractionbronchiolectasis throughout the lungs suggest underlying fibrotic lung disease component. No new or enlarging pulmonarynodules. No thoracic lymphadenopathy by size criteria. Cardiac size isnormal without pericardial effusion. Stable T8 vertebral body compressionfracture. Resolved trace bilateral effusions. CT ABDOMEN/PELVIS: Postoperative changes umbilical hernia repair with mesh performed09/04/2023. Left lateral abdominal approach drain with tip terminating inthe lower right abdomen. Presumed postoperative foci of air within theabdomen. Cirrhosis with small volume abdominopelvic ascites. Normal gallbladder,pancreas, adrenal glands, and kidneys. Splenomegaly measuring up to 16.3cm. Normal caliber bowel without evidence of obstruction. Intervalincreased colonic wall thickening involving the cecum, ascending colon, and terminal ileum. Noabdominopelvic lymphadenopathy by size criteria. No acute vascular abnormality. Bilateral hip arthroplasties.. IMPRESSION: 1. Negative for acute pulmonary embolism. 2. Interval decreased extent of lower lobe opacities, suggestive ofinfectious/inflammatory process, including an exacerbation of ILD. 3. Interval increased colonic wall thickening involving the cecum andascending colon as well as the terminal ileum, which may be seen in thesetting of colitis/terminal ileitis. Findings could be seen in the settingof portal colopathy; although the interval progression from 08/27/2023 is not expected. 4. Postoperative changes umbilical hernia repair with mesh. Presumedpostoperative pneumoperitoneum. 5. Cirrhosis with small volume abdominopelvic ascites. 6. Mild fibrotic interstitial lung disease. Quentin Saunders M.D. IMDanita CT PROCEDURES * CT Abdomen Pelvis with IV Contrast (09/10/2023 12:16 AM CDT) Only the most recent of2 resultswithin the time period is included. Anatomical Region Laterality Modality Abdomen, Pelvis, Abdominal R ST LOS, Abdominal ARZ LOS, Abdominal FLA LOS N/A Computed Tomograp hy, Computed Tomography 09/10/2023 12:1 3 AM CDT Impressions 09/10/2023 8:28 AM CDT 1. ??Negative for acute pulmonary embolism. 2. ??Interval decreased extent of lower lobe opacities, suggestive of infectious/inflammatory process, including an exacerbation of ILD. 3. ??Interval increased colonic wall thickening involving the cecum and ascending colon as well as the terminal ileum, which may be seen in the setting of colitis/terminal ileitis. Findings could be seen in the setting of portal colopathy; although the interval progression from 08/27/2023 is not expected. 4. ??Postoperative changes umbilical hernia repair with mesh. Presumed postoperative pneumoperitoneum. 5. ??Cirrhosis with small volume abdominopelvic ascites. 6. ??Mild fibrotic interstitial lung disease. Narrative 09/10/2023 8:28 AM CDT EXAM: CT CHEST ANGIOGRAM AND PULMONARY ARTERIES WITH IV CONTRAST, CT ABDOMEN PELVIS WITH IV CONTRAST Including 3D image postprocessing with or without AI assistance. COMPARISON: CT chest 08/26/2023, CT abdomen pelvis 08/27/2023 FINDINGS: CT CHEST: Negative for acute pulmonary embolism. Since 08/26/2023, interval decreased extent of the bibasilar consolidative and groundglass opacities consistent with infectious/inflammatory process. Reticular peripheral opacities with mild areas of traction bronchiolectasis throughout the lungs suggest underlying fibrotic lung disease component. No new or enlarging pulmonary nodules. No thoracic lymphadenopathy by size criteria. Cardiac size is normal without pericardial effusion. Stable T8 vertebral body compression fracture. Resolved trace bilateral effusions. CT ABDOMEN/PELVIS: Postoperative changes umbilical hernia repair with mesh performed 09/04/2023. Left lateral abdominal approach drain with tip terminating in the lower right abdomen. Presumed postoperative foci of air within the abdomen. Cirrhosis with small volume abdominopelvic ascites. Normal gallbladder, pancreas, adrenal glands, and kidneys. Splenomegaly measuring up to 16.3 cm. Normal caliber bowel without evidence of obstruction. Interval increased colonic wall thickening involving the cecum, ascending colon, and terminal ileum. No abdominopelvic lymphadenopathy by size criteria. No acute vascular abnormality. Bilateral hip arthroplasties.. Procedure Note Antonio Iverson M.D. - 09/10/2023 EXAM: CT CHEST ANGIOGRAM AND PULMONARY ARTERIES WITH IV CONTRAST, CTABDOMEN PELVIS WITH IV CONTRAST Including 3D image postprocessing with or without AI assistance. COMPARISON: CT chest 08/26/2023, CT abdomen pelvis 08/27/2023 FINDINGS: CT CHEST: Negative for acute pulmonary embolism. Since 08/26/2023, interval decreased extent of the bibasilar consolidativeand groundglass opacities consistent with infectious/inflammatory process.Reticular peripheral opacities with mild areas of tractionbronchiolectasis throughout the lungs suggest underlying fibrotic lung disease component. No new or enlarging pulmonarynodules. No thoracic lymphadenopathy by size criteria. Cardiac size isnormal without pericardial effusion. Stable T8 vertebral body compressionfracture. Resolved trace bilateral effusions. CT ABDOMEN/PELVIS: Postoperative changes umbilical hernia repair with mesh performed09/04/2023. Left lateral abdominal approach drain with tip terminating inthe lower right abdomen. Presumed postoperative foci of air within theabdomen. Cirrhosis with small volume abdominopelvic ascites. Normal gallbladder,pancreas, adrenal glands, and kidneys. Splenomegaly measuring up to 16.3cm. Normal caliber bowel without evidence of obstruction. Intervalincreased colonic wall thickening involving the cecum, ascending colon, and terminal ileum. Noabdominopelvic lymphadenopathy by size criteria. No acute vascular abnormality. Bilateral hip arthroplasties.. IMPRESSION: 1. Negative for acute pulmonary embolism. 2. Interval decreased extent of lower lobe opacities, suggestive ofinfectious/inflammatory process, including an exacerbation of ILD. 3. Interval increased colonic wall thickening involving the cecum andascending colon as well as the terminal ileum, which may be seen in thesetting of colitis/terminal ileitis. Findings could be seen in the settingof portal colopathy; although the interval progression from 08/27/2023 is not expected. 4. Postoperative changes umbilical hernia repair with mesh. Presumedpostoperative pneumoperitoneum. 5. Cirrhosis with small volume abdominopelvic ascites. 6. Mild fibrotic interstitial lung disease. Quentin Saunders M.D. IMG CT PROCEDURES * (ABNORMAL) Lactate, B (09/09/2023 11:01 PM CDT) Lactate, B 5.1(H) 0.5 - 2.2 mmol/L 09/09/2023 11:07 PM CDT STMA Blood (Blood, Venous) 09/09/2023 11:01 PM CDT 09/09/2023 11:05 PM CDT Quentin Saunders M.D. LAB BLOOD NON ADD-ON [facility] [address] [place] [address], [facility] [address] [place] [address] * (ABNORMAL) Hepatic Function Panel (09/09/2023 11:01 PM CDT) Only the most recent of4 resultswithin the time period is included. Bilirubin, Total, S 1.1 0.0 - 1.2 mg/dL 09/10/2023 12:17 AM CDT DTL Bilirubin, Direct, S 0.5(H) 0.0 - 0.3 mg/dL 09/10/2023 12:51 AM CDT DTL Aspartate Aminotransferase (AST), S 34 8 - 48 U/L 09/10/2023 12:51 AM CDT DTL Alanine Aminotransferase (ALT), S 14 7 - 55 U/L 09/10/2023 12:17 AM CDT DTL Alkaline Phosphatase, S 166(H) 40 - 129 U/L 09/10/2023 12:17 AM CDT DTL Albumin, S 3.0(L) 3.5 - 5.0 g/dL 09/10/2023 12:17 AM CDT DTL Protein, Total, S 6.9 6.3 - 7.9 g/dL 09/10/2023 12:17 AM CDT DTL Blood (Blood, Venous) 09/09/2023 11:01 PM CDT 09/09/2023 11:24 PM CDT Quentin Saunders M.D. LAB BLOOD ADD-ON [facility] [address] [place] [address], [facility] DTL [facility] [address] [place] [address] * (ABNORMAL) CBC with Differential, Blood (09/09/2023 11:01 PM CDT) Only the most recent of5 resultswithin the time period is included. Hemoglobin 12.6(L) 13.2 - 16.6 g/dL 09/09/2023 11:08 PM CDT STMA Hematocrit 35.9(L) 38.3 - 48.6 % 09/09/2023 11:08 PM CDT STMA Erythrocytes 3.99(L) 4.35 - 5.65 x10(12)/L 09/09/2023 11:08 PM CDT STMA MCV 90.0 78.2 - 97.9 fL 09/09/2023 11:08 PM CDT STMA RBC Distrib Width 18.0(H) 11.8 - 14.5 % 09/09/2023 11:08 PM CDT STMA Platelet Count 89(L) 135 - 317 x10(9)/L 09/09/2023 11:08 PM CDT STMA Leukocytes 4.1 3.4 - 9.6 x10(9)/L 09/09/2023 11:08 PM CDT STMA Neutrophils 2.70 1.56 - 6.45 x10(9)/L 09/09/2023 11:08 PM CDT DHPM Lymphocytes 0.57(L) 0.95 - 3.07 x10(9)/L 09/09/2023 11:08 PM CDT STMA Monocytes 0.54 0.26 - 0.81 x10(9)/L 09/09/2023 11:08 PM CDT STMA Eosinophils 0.20 0.03 - 0.48 x10(9)/L 09/09/2023 11:08 PM CDT STMA Basophils 0.05 0.01 - 0.08 x10(9)/L 09/09/2023 11:08 PM CDT STMA Blood (Blood, Venous) 09/09/2023 11:01 PM CDT 09/09/2023 11:05 PM CDT Quentin Saunders M.D. LAB BLOOD ADD-ON [facility] [address] [place] [address], [facility] STMA [facility] [address] [place] [address] DHPM [facility] [address] [place] [address] * Lipase (09/09/2023 11:01 PM CDT) Pathologist [facility] Lipase, S 45 13 - 60 U/L 09/10/2023 12:17 AM CDT DTL Blood (Blood, Venous) 09/09/2023 11:01 PM CDT 09/09/2023 11:24 PM CDT Quentin Saunders M.D. LAB BLOOD ADD-ON Performing Organization Address City/[facility]/ZIP Co de Phone Number [facility] [address] [place], [place] [id number] [place] [address] DTL [facility] [address] [place] [address] * (ABNORMAL) Basic Metabolic Panel (09/09/2023 11:01 PM CDT) Only the most recent of6 resultswithin the time period is included. Potassium, P 3.4(L) 3.6 - 5.2 mmol/L 09/09/2023 11:21 PM CDT STMA Sodium, P 128(L) 135 - 145 mmol/L 09/09/2023 11:21 PM CDT STMA Chloride, P 93(L) 98 - 107 mmol/L 09/09/2023 11:21 PM CDT STMA Bicarbonate, P 18(L) 22 - 29 mmol/L 09/09/2023 11:21 PM CDT STMA Anion Gap, P 17(H) 7 - 15 09/09/2023 11:21 PM CDT STMA BUN (Blood Urea Nitrogen), P 31(H) 8 - 24 mg/dL 09/09/2023 11:21 PM CDT STMA Creatinine 0.96 0.74 - 1.35 mg/dL 09/09/2023 11:21 PM CDT STMA Estimated GFR (eGFR) 83 >=60 mL/min/BSA 09/09/2023 11:21 PM CDT STMA Comment: Estimated GFR calculated using the 2020 CKD_EPI creatinine equation. Calcium, Total, P 9.4 8.8 - 10.2 mg/dL 09/09/2023 11:21 PM CDT STMA Glucose, P 132 70 - 140 mg/dL 09/09/2023 11:21 PM CDT STMA Blood (Blood, Venous) 09/09/2023 11:01 PM CDT 09/09/2023 11:05 PM CDT Quentin Saunders M.D. [place] [address], [facility] [address] [place] [address] * (ABNORMAL) Prothrombin Time (PT) (09/05/2023 9:36 AM CDT) Only the most recent of2 resultswithin the time period is included. Prothrombin Time, P 20.7(H) 9.4 - 12.5 sec 09/05/2023 10:30 AM CDT DTL INR 1.9 0.9 - 1.1 09/05/2023 10:30 AM CDT DTL Comment: ----ADDITIONAL INFORMATION---- Standard intensity warfarin therapeutic range: 2.0 to 3.0 ?? High intensity warfarin therapeutic range: 2.5 to 3.5 Blood (Blood, Venous) 09/05/2023 9:36 AM CDT 09/05/2023 9:51 AM CDT Ti Delvalle M.D., M.S. LAB BLOOD ADD-ON [facility] [address] [place] [address], [facility] DTL [facility] [address] [place] [address] * (ABNORMAL) CBC without Differential (09/05/2023 6:50 AM CDT) Only the most recent of2 resultswithin the time period is included. Hemoglobin 9.7(L) 13.2 - 16.6 g/dL 09/05/2023 7:24 AM CDT DTL Hematocrit 27.3(L) 38.3 - 48.6 % 09/05/2023 7:24 AM CDT DTL Erythrocytes 2.93(L) 4.35 - 5.65 x10(12)/L 09/05/2023 7:24 AM CDT DTL MCV 93.2 78.2 - 97.9 fL 09/05/2023 7:24 AM CDT DTL RBC Distrib Width 17.8(H) 11.8 - 14.5 % 09/05/2023 7:24 AM CDT DTL Platelet Count 57(L) 135 - 317 x10(9)/L 09/05/2023 7:24 AM CDT DTL Leukocytes 4.5 3.4 - 9.6 x10(9)/L 09/05/2023 7:24 AM CDT DTL Blood (Blood, Venous) 09/05/2023 6:50 AM CDT 09/05/2023 7:08 AM CDT Leda Brandt M.D., Ph.D. LAB BLOOD ADD-ON [facility] [address] [place] [address], [place] DTL [facility] [address] [place] [address] * Glucose, POCT (09/04/2023 3:30 PM CDT) Only the most recent of15 resultswithin the time period is included. Glucose, POCT, B 129 70 - 140 mg/dL 09/04/2023 5:25 PM CDT PCDE Site Capillary 09/04/2023 5:25 PM CDT PCDE Blood 09/04/2023 3:30 PM CDT 09/04/2023 5:25 PM CDT Unknown Provider LAB POCT ORDERABLES- MANUAL POC [facility] [address] [place] [address], [facility] PCDE [facility] POC [address] [place] [address] * LDA ANE ENDOTRACHEAL AIRWAY (09/04/2023 1:15 PM CDT) Narrative Brooke Rosales APRN, CRNA, MNA - 09/04/2023 1:15 PM CDT Brooke Rosales APRN, CRNA, MNA ? 09/04/2023 ??1:23 PM Airway Date/Time: 09/04/2023 1:15 PM Performed by: Brooke Rosales APRN, CRNA MNVaibhav Authorized by: Abner Cohen M.D. ?? Patient location during procedure: OR / Procedure Area PROCEDURE DETAILS: Mask difficulty assessment: not attempted Final airway type: video laryngoscope Laryngeal Manipulation: no ?? Final best view of glottic structures - Cormack/Lehane Score: grade 1 ETT location: oral VL device: glide scope [place] scope blade size: 4 Tube size: 7.5 ETT distance at teeth/gum: 23 Oral tube type: standard ETT Cuffed: yes Leak Test Performed: no ?? Number of attempt to successful placement: 1 Airway confirmation: bilateral breath sounds, positive ETCO2 and bilateral chest rise Other previous techniques attempted: none Additional Comments Uncomplicated RSI ?? PRE PROCEDURE DETAILS: Pre evaluation for airway management: procedure Urgency: elective Preop assessment of probable difficulty: no difficulty anticipated Preoxygenation: bag valve mask SEDATION / ANESTHESIA Anesthesia method: anesthesia POST PROCEDURE DETAILS: ? Procedure outcome: successful ?? Notable Events: no complications Abner Cohen M.D. ANESTHESIA ORDERABLE S * (ABNORMAL) Hemoglobin A1c (09/04/2023 8:36 AM CDT) Hemoglobin A1c, B 6.0(H) 4.0 - 5.6 % 09/04/2023 9:42 AM CDT DTL Comment: Hemoglobin A1c values of 5.7-6.4 percent indicate an increased risk for developing diabetes mellitus. In diabetic patients, HbA1c goals should be discussed with healthcare provider. Blood (Blood, Venous) 09/04/2023 8:36 AM CDT 09/04/2023 8:51 AM CDT Leda Brandt M.D., Ph.D. LAB BLOOD ADD-ON [facility] [address] [place] [address], [facility] [address] [place] [address] * US Scrotum with Doppler (09/03/2023 1:59 PM CDT) Anatomical Region Laterality Modality Testes, Ultrasound RST LOS, Ultrasound ARZ LOS, Ultrasound FLA LOS N/A Ultrasound Impressions 09/03/2023 2:19 PM CDT 1. Moderate left hydrocele appears similar to prior. 2. Scrotal thickening has overall improved. Narrative 09/03/2023 2:19 PM CDT EXAM: US SCROTUM WITH DOPPLER Exam performed with color and spectral Doppler analysis. COMPARISON: Scrotal ultrasound 11/28/2022. FINDINGS: Right testicle: Normal size and echotexture. No focal mass. Normal arterial blood flow on color and spectral Doppler. Right testis volume: 12.1 ml Epididymis: Normal. No mass or hyperemia. Other: No hydrocele. No varicocele. ??Mild scrotal edema overall appears improved compared to prior. Left testicle: Normal size and echotexture. No focal mass. Normal arterial blood flow on color and spectral Doppler. Left testis volume: 13.4 ml Epididymis: Normal. No mass or hyperemia. Other: Moderate left hydrocele overall appears similar compared to prior. No varicocele. Moderate scrotal edema appears overall mildly improved compared to prior. Procedure Note Anuradha Mendez M.D. - 09/03/2023 EXAM: US SCROTUM WITH DOPPLER Exam performed with color and spectral Doppler analysis. COMPARISON: Scrotal ultrasound 11/28/2022. FINDINGS: Right testicle: Normal size and echotexture. No focal mass. Normalarterial blood flow on color and spectral Doppler. Right testis volume: 12.1 ml Epididymis: Normal. No mass or hyperemia. Other: No hydrocele. No varicocele. Mild scrotal edema overall appearsimproved compared to prior. Left testicle: Normal size and echotexture. No focal mass. Normal arterialblood flow on color and spectral Doppler. Left testis volume: 13.4 ml Epididymis: Normal. No mass or hyperemia. Other: Moderate left hydrocele overall appears similar compared to prior.No varicocele. Moderate scrotal edema appears overall mildly improvedcompared to prior. IMPRESSION: 1. Moderate left hydrocele appears similar to prior. 2. Scrotal thickening has overall improved. Elen Gomes M.D., Ph.D. [facility]EDU [facility] * Arm, Right-Nursing Image Exam (08/27/2023 2:05 PM CDT) 08/27/2023 2:03 PM CDT Narrative IIMS - 08/27/2023 2:05 PM CDT This order has been created and auto-finalized to support the import of images acquired without order. The clinical documentation to support these images can be found on the encounter that produced images. Provider Not In System IMG NON RAD IMAGI NG PROCEDURES IIPA NA * Magnesium (08/27/2023 6:07 AM CDT) Only the most recent of2 resultswithin the time period is included. Magnesium, S 1.9 1.7 - 2.3 mg/dL 08/27/2023 6:51 AM CDT DTL Blood (Blood, Venous) 08/27/2023 6:07 AM CDT 08/27/2023 6:40 AM CDT Barbara Marin M.D. LAB BLOOD ADD-ON Performing Organization Address City/[facility]/ZIP Co de Phone Number [facility] [address] [place] [address] * Bacteria / Neda Culture, Blood #2 (08/26/2023 3:16 PM CDT) Only the most recent of3 resultswithin the time period is included. Bacteria/Taylor da Culture, Blood No growth after 5 days of incubation. 08/31/2023 5:02 PM CDT DTL Blood (Blood, Peripheral Draw) 08/26/2023 3:16 PM CDT 08/26/2023 4:13 PM CDT Comment:Specimen Source Site : Blood Kenneth Mcnally M.D. LAB MICROBIOLOGY - G ENERAL ORDERABLES Performing Organization Address City/[facility] Co de Phone Number [facility] [address] [place] [address], [address] [address] * CT Chest with IV Contrast (08/26/2023 2:13 PM CDT) Anatomical Region Laterality Modality Chest, Thoracic RST LOS, Tho racic ARZ LOS, Thoracic ARZ LOS, Thoracic FLA LOS N/A Computed Tomography, Compute d Tomography 08/26/2023 2:11 PM CDT Impressions 08/26/2023 2:48 PM CDT 1. No mediastinal abscess or gas to suggest an esophageal perforation. In case of persistent clinical concern, a fluoroscopic esophagram can be performed. 2. Mild diffuse esophageal thickening is probably secondary to the recent endoscopy. 3. Consolidations and groundglass opacities in the left lung base, favor infection or aspiration. 4. 1.5 cm groundglass nodule in the right lung apex is indeterminate and may be inflammatory or suggest low-grade malignancy. Narrative 08/26/2023 2:48 PM CDT EXAM: CT CHEST WITH IV CONTRAST COMPARISON: PET/CT 12/09/2022 FINDINGS: The study was performed without oral contrast. No mediastinal collection or gas. No fistula tract identified. Diffuse mild esophageal thickening, probably related to recent intervention. Probably a small posterior tracheal diverticulum (4/23). Small dependent material in the upper trachea (4/18). Small left pleural effusion and trace right pleural effusion. No mediastinal lymphadenopathy. Dependent consolidation and groundglass opacities in the left lower lobe may reflect aspiration or infection. Peripheral subpleural interstitial opacities in both upper and lower lobes is probably subpleural fibrosis. There is a 1.5 cm groundglass nodule in the right apex (3/55). Cirrhotic liver with splenomegaly and upper abdominal collaterals. Partially visualized ascites in the upper abdomen. Mild height loss of T8 vertebral body is most likely chronic. No aggressive bone lesions. Procedure Note Gladys Viera M.B.B.S. - 08/26/2023 EXAM: CT CHEST WITH IV CONTRAST COMPARISON: PET/CT 12/09/2022 FINDINGS: The study was performed without oral contrast. No mediastinal collectionor gas. No fistula tract identified. Diffuse mild esophageal thickening,probably related to recent intervention. Probably a small posterior tracheal diverticulum (4/23). Small dependentmaterial in the upper trachea (4/18). Small left pleural effusion and trace right pleural effusion. Nomediastinal lymphadenopathy. Dependent consolidation and groundglass opacities in the left lower lobemay reflect aspiration or infection. Peripheral subpleural interstitialopacities in both upper and lower lobes is probably subpleural fibrosis.There is a 1.5 cm groundglass nodule in the right apex (3/55). Cirrhotic liver with splenomegaly and upper abdominal collaterals.Partially visualized ascites in the upper abdomen. Mild height loss of [id number] body is most likely chronic. No aggressive bone lesions. IMPRESSION: 1. No mediastinal abscess or gas to suggest an esophageal perforation. Incase of persistent clinical concern, a fluoroscopic esophagram can beperformed. 2. Mild diffuse esophageal thickening is probably secondary to the recentendoscopy. 3. Consolidations and groundglass opacities in the left lung base, favorinfection or aspiration. 4. 1.5 cm groundglass nodule in the right lung apex is indeterminate andmay be inflammatory or suggest low-grade malignancy. Nelly Marinelli M.D. IMG CT PROCEDURES * ECG 12 Lead (08/26/2023 10:39 AM CDT) Only the most recent of2 resultswithin the time period is included. Ventricular Rate ECG/Min 57 BPM MUSE AZ Interval 126 ms MUSE QRSD Interval 102 ms MUSE QT Interval 472 ms MUSE QTC Interval 459 ms MUSE P Dow 19 degrees MUSE R Dow -4 degrees MUSE T Wave Dow 17 degrees MUSE 08/26/2023 10:3 9 AM CDT 08/26/2023 11:07 AM CDT Impressions MUSE - 08/26/2023 11:07 AM CDT Sinus bradycardia Low voltage QRS Nonspecific ST and T wave abnormality When compared with ECG of 25-Aug-2023 13:42, Sinus rhythm has replaced Atrial fibrillation Vent. rate has decreased by ??47 bpm Reviewed by KLEBER Delaney Narrative Procedure Note Shamir Pierce M.D., Ph.D. - 08/26/2023 IMPRESSION: Sinus bradycardia Low voltage QRS Nonspecific ST and T wave abnormality When compared with ECG of 25-Aug-2023 13:42, Sinus rhythm has replaced Atrial fibrillation Vent. rate has decreased by 47 bpm Reviewed by KLEBER Delaney Nelly Marinelli M.D. ECG ORDERABLES MUSE NA * Invasive Line (08/26/2023 10:31 AM CDT) Narrative Ese Fowler, R.R.T., L.R.T. - 08/26/2023 10:31 AM CDT Ese Fowler, R.R.T., L.R.T. ? 08/26/2023 10:32 AM Invasive Line Performed by: Ese Fowler, R.R.T., L.R.T. Authorized by: Gypsy Lu M.D. ?? Location: ICU/PCU PROCEDURE DETAILS: Line type: arterial ?? Laterality: left Location: radial Location details: new site ? Age group: adult Catheter diameter: 20 Ga Technique: ultrasound guided with GRACE confirmation of guidewire in right atrium prior to vessel dilation ?? Ultrasound guidance: image acquired and saved Ultrasound comment: ultrasound guidance used demonstrating vessel patency and cannulation of the vessel observed. Monitored: yes ?? Number of attempts: 1 UNIVERSAL PROTOCOL All relevant documentation and testing were reviewed and available. All required blood products, implants, devices and or special equipment were made available as applicable. Pre-procedure verification was conducted and the correct site was marked if required. A fire risk assessment was done as applicable. The procedural time-out to verify correct patient, correct side/site, and procedure was conducted prior to performing the procedure and confirmed in a procedural pause. PRE-PROCEDURE DETAILS: Indication(s): hemodynamic monitoring Appropriate hand hygiene, gown, cap, mask, protective eyewear, sterile gloves, skin preparation, sterile drape, and strict aseptic technique were utilized as applicable for the procedure.: yes ?? Skin preparation: chlorhexidine ?? SEDATION / ANESTHESIA Anesthesia method: local infiltration Local infiltrate type: lidocaine POST-PROCEDURE DETAILS: Procedure completed successfully: yes ?? Line secured: secured with sutureless device Chlorhexidine disc around insertion site and under catheter with slight turn: yes ?? Notable Events - arterial: none Patient tolerance of procedure: successful Gypsy Lu M.D. PROCEDURE/MINOR SURGICAL ORDERABLES * Lactate for Sepsis with Reflex (08/26/2023 7:28 AM CDT) Lactate, P 2.2 0.5 - 2.2 mmol/L 08/26/2023 8:09 AM CDT STMA Blood (Blood, Venous) 08/26/2023 7:28 AM CDT 08/26/2023 7:42 AM CDT Kirk Rm M.D. LAB BLOOD NON ADD-ON [facility] [address] [place] [address], [facility] [address] [place] [address] * (ABNORMAL) Renal Function Panel (08/26/2023 4:38 AM CDT) Potassium, S 3.8 3.6 - 5.2 mmol/L 08/26/2023 5:50 AM CDT DTL Sodium, S 139 135 - 145 mmol/L 08/26/2023 5:50 AM CDT DTL Chloride, S 110(H) 98 - 107 mmol/L 08/26/2023 5:50 AM CDT DTL Bicarbonate, S 22 22 - 29 mmol/L 08/26/2023 5:50 AM CDT DTL Anion Gap 7 7 - 15 08/26/2023 5:50 AM CDT DTL BUN (Blood Urea Nitrogen), S 22 8 - 24 mg/dL 08/26/2023 5:50 AM CDT DTL Creatinine 1.11 0.74 - 1.35 mg/dL 08/26/2023 5:50 AM CDT DTL Estimated GFR (eGFR) 70 >=60 mL/min/BSA 08/26/2023 5:50 AM CDT DTL Comment: Estimated GFR calculated using the 2020 CKD_EPI creatinine equation. Calcium, Total, S 8.4(L) 8.8 - 10.2 mg/dL 08/26/2023 5:50 AM CDT DTL Glucose, S 130 70 - 140 mg/dL 08/26/2023 5:50 AM CDT DTL Albumin, S 2.3(L) 3.5 - 5.0 g/dL 08/26/2023 5:50 AM CDT DTL Phosphorus (Inorganic), S 3.5 2.5 - 4.5 mg/dL 08/26/2023 5:50 AM CDT DTL Blood (Blood, Venous) 08/26/2023 4:38 AM CDT 08/26/2023 5:17 AM CDT Kenneth Mcnally M.D. LAB BLOOD ADD-ON [facility] [address] [place] [address], [facility] [address] [place] [address] * (ABNORMAL) Iron and Total Iron-Binding Capacity (08/26/2023 4:38 AM CDT) [facility] Iron 48(L) 50 - 150 mcg/dL 08/26/2023 5:50 AM CDT DTL Total Iron Binding Capacity 211(L) 250 - 400 mcg/dL 08/26/2023 5:50 AM CDT DTL Percent Saturation 23 14 - 50 % 08/26/2023 5:50 AM CDT DTL Blood (Blood, Venous) 08/26/2023 4:38 AM CDT 08/26/2023 5:17 AM CDT Kenneth Mcnally M.D. LAB BLOOD ADD-ON Performing Organization Address City/[facility]/ZIP Co de Phone Number [facility] [address] [place] [address], [facility] [address] [place] [address] * Ferritin (08/26/2023 4:38 AM CDT) [facility] Ferritin, S 71 31 - 409 mcg/L 08/26/2023 5:50 AM CDT DTL Blood (Blood, Venous) 08/26/2023 4:38 AM CDT 08/26/2023 5:17 AM CDT Kenneth Mcnally M.D. LAB BLOOD ADD-ON [facility] [address] [place] [address] * Patient Status (08/25/2023 9:12 PM CDT) [facility] FIO2 room air 0.21=AIR 08/25/2023 9:15 PM CDT STMA Spont. breaths/min 21 08/25/2023 9:15 PM CDT STMA Blood 08/25/2023 9:12 PM CDT 08/25/2023 9:15 PM CDT Kenneth Mcnally M.D. LAB BLOOD NON ADD-ON [facility] [address] [place] [address], [facility] STMA [facility] [address] [place] [address] * (ABNORMAL) Blood Gas with Coox, Venous (08/25/2023 9:12 PM CDT) pO2, Venous, B 18 Not applicable mm Hg 08/25/2023 9:17 PM CDT STMA pCO2, Venous, B 41 41 - 51 mm Hg 08/25/2023 9:17 PM CDT STMA pH, Venous, B 7.37 7.32 - 7.43 pH 024 9:17 PM CDT STMA Base Excess, Venous, B -1 Not applicable mmol/L 08/25/2023 9:17 PM CDT STMA HCO3, Venous, B 24 Not applicable mmol/L 08/25/2023 9:17 PM CDT STMA Hemoglobin, Venous, B 11.2(L) 13.2 - 16.6 g/dL 08/25/2023 9:17 PM CDT STMA O2Hb, Venous, B 21.5 Not applicable % 08/25/2023 9:17 PM CDT STMA COHb, Venous, B 1.3 <3.0 % 08/25/2023 9:17 PM CDT STMA MetHb, Venous, B <1.0 <1.5 % 08/25/2023 9:17 PM CDT STMA CtO2, Venous, B 3.4 Not Applicable vol % 08/25/2023 9:17 PM CDT STMA Sample Site, Venous, B Venipunct 08/25/2023 9:15 PM CDT STMA Blood (Blood, Venous) 08/25/2023 9:12 PM CDT 08/25/2023 9:15 PM CDT Kenneth Mcnally M.D. LAB BLOOD NON ADD-ON [facility] [address] [place] [address], [facility] [address] [place] [address] * Critical Care (08/25/2023 5:05 PM CDT) Narrative Zachary Romano M.D. - 08/25/2023 5:05 PM CDT Zachary Romano M.D. ? 08/27/2023 10:04 AM Critical Care Performed by: Zachary Romano M.D. Authorized by: Zachary Romano M.D. ?? Critical care provider statement: Critical care total time (minutes): 45 CPR was performed on this patient: no ?? Critical care was necessary to treat or prevent imminent or life-threatening deterioration of the following conditions: sepsis Critical care was time spent personally by me on the following activities: examination of patient, evaluation of patient's response to treatment, re-evaluation of patient's condition, obtaining history from patient or surrogate, ordering and performing treatments and interventions, ordering and review of laboratory studies, development of treatment plan with patient or surrogate, ordering and review of radiographic studies, pulse oximetry, discussions with consultants and documenting in the patient chart I assumed direction of critical care for this patient from another provider in my specialty: no ?? Zachary Romano M.D. PROCEDURE/MINOR SURG ICAL ORDERABLES * (ABNORMAL) Lactate, POCT (08/25/2023 4:08 PM CDT) Only the most recent of2 resultswithin the time period is included. Lactate, POCT 4.49(H) 0.50 - 2.20 mmol/L 08/25/2023 4:17 PM CDT PCLX Blood (Blood, Venous) 08/25/2023 4:08 PM CDT 08/25/2023 4:08 PM CDT Vianney Escobar APRN, C.N.P., EliuP., M.S.N. LAB POCT ORDERABLES - DEVICE Performing Organization Address [facility] Co de Phone Number POC [facility] [address] [place] [address], [place] [facility] [address] [place] [address] * (ABNORMAL) Dipstick, POCT, Urine (08/25/2023 3:35 PM CDT) Glucose, POCT, U 500(A) Negative mg/dL 08/25/2023 3:36 PM CDT PCED Ketone, POCT, U Negative Negative mg/dL 08/25/2023 3:36 PM CDT PCED Specific [place], POCT, U 1.020 1.005 - 1.030 08/25/2023 3:36 PM CDT PCED Blood, POCT, U Small(A) Negative 08/25/2023 3:36 PM CDT PCED pH, POCT, Urine 6.0 5.0 - 8.0 08/25/2023 3:36 PM CDT PCED Protein, POCT, U Negative Negative mg/dL 08/25/2023 3:36 PM CDT PCED Nitrites, POCT, U Negative Negative 08/25/2023 3:36 PM CDT PCED Leukocytes, POCT, U Negative Negative 08/25/2023 3:36 PM CDT PCED Urine 08/25/2023 3:35 PM CDT 08/25/2023 3:37 PM CDT Unknown Provider LAB POCT ORDERABLES - DEVICE Performing Organization Address City/[facility]/ZIP Co de Phone Number POC [facility] [address] [place] [address], [place] PCED [facility] [address] [place] [address] * Osmolality, Urine (08/25/2023 3:18 PM CDT) Osmolality, U 597 150 - 1150 mOsm/kg 08/25/2023 3:58 PM CDT DTL Urine 08/25/2023 3:18 PM CDT 08/25/2023 3:35 PM CDT Zachary Romano M.D. LAB URINE ORDERABLES [facility] [address] [place] [address], [facility] [address] [place] [address] * (ABNORMAL) Dipstick, Urine (08/25/2023 3:18 PM CDT) Hemoglobin, QL, U Moderate(A) Negative 08/25/2023 3:44 PM CDT DTL Leukocyte Esterase, U Negative Negative 08/25/2023 3:44 PM CDT DTL Nitrite, U Negative Negative 08/25/2023 3:44 PM CDT DTL Ketone, U 5(A) Negative mg/dL 08/25/2023 3:44 PM CDT DTL Glucose, U >=1000(A) Negative mg/dL 08/25/2023 3:44 PM CDT DTL Urine 08/25/2023 3:18 PM CDT 08/25/2023 3:35 PM CDT Zachary Romano M.D. LAB URINE ORDERABLES Performing Organization Address City/[facility]/ZIP Co de Phone Number [facility] [address] [place] [address], [facility] [address] [place] [address] * pH, Random, Urine (08/25/2023 3:18 PM CDT) pH, Random, U 5.7 4.5 - 8.0 08/25/2023 3:58 PM CDT DTL Urine 08/25/2023 3:18 PM CDT 08/25/2023 3:35 PM CDT Zachary Romano M.D. LAB URINE ORDERABLES [facility] [address] [place] [address], [facility] [address] [place] [address] * (ABNORMAL) Microscopic Manual (08/25/2023 3:18 PM CDT) Microscopy Abnormal 08/25/2023 4:04 PM CDT DTL RBC 11-20(A) <3 /hpf 08/25/2023 4:04 PM CDT DTL Dysmorphic RBC <25 <25 % 08/25/2023 4:04 PM CDT DTL WBC None Seen /hpf 08/25/2023 4:04 PM CDT DTL Comment: ----REFERENCE VALUE---- <4 ??(Males) <11 (Females) Casts, Hyaline Occas /lpf 08/25/2023 4:04 PM CDT DTL Urine 08/25/2023 3:18 PM CDT 08/25/2023 3:35 PM CDT Zachary Romano M.D. LAB URINE ORDERABLES [facility] [address] [place] [address], [facility] [address] [place] [address] * Bacterial Culture, Aerobic + Susceptibility, Urine (08/25/2023 3:18 PM CDT) Urine Culture No growth after 1 day of incubation. 08/26/2023 12:32 PM CDT DTL Urine (Urine, Straight Catheter) 08/25/2023 3:18 PM CDT 08/25/2023 5:52 PM CDT Comment:Specimen Source Site : Urine Zachary Romano M.D. LAB MICROBIOLOGY - G ENERAL ORDERABLES [facility] [address] [place] [address], [facility] [address] [place] [address] * Urinalysis, with Microscopic: Urine, Straight Catheter (08/25/2023 3:18 PM CDT) Source Urine, Urine, Straight Catheter 08/25/2023 3:35 PM CDT DTL Color, U Yellow 08/25/2023 3:35 PM CDT DTL Clarity, U Clear 08/25/2023 3:35 PM CDT DTL Protein, U 10 <26 mg/dL 08/25/2023 4:23 PM CDT DTL Protein/Osmola lity 0.17 <0.42 ratio 08/25/2023 4:23 PM CDT DTL Predicted 24 HR Protein, U 172 <229 mg/24 h 08/25/2023 4:23 PM CDT DTL Predicted Range 54-541 mg/24 h 08/25/2023 4:23 PM CDT DTL Comment Micro done on <10 mL 08/25/2023 4:03 PM CDT DTL Urine (Urine, Straight Catheter) 08/25/2023 3:18 PM CDT 08/25/2023 3:35 PM CDT Zachary Romano M.D. LAB URINE ORDERABLES [facility] [address] [place] [address], [facility] DTL [facility] [address] [place] [address] * DX Chest AP or PA and Lateral 2 Views (08/25/2023 2:25 PM CDT) Anatomical Region Laterality Modality Chest, Thoracic RST LOS, Tho racic ARZ LOS, Thoracic FLA LOS N/A Digital Radiography Impressions 08/25/2023 2:52 PM CDT Patchy opacities within the lung bases, left greater than right, could be secondary to aspiration/pneumonitis, less likely atelectasis. No definite pleural effusion or pneumothorax. Low lung volumes accentuate heart size and pulmonary vascularity. Osseous demineralization. Suture anchor right humeral head. Narrative 08/25/2023 2:52 PM CDT EXAM: ??DX CHEST AP OR PA AND LATERAL 2 VIEWS Procedure Note Mehran Burks M.D. - 08/25/2023 EXAM: DX CHEST AP OR PA AND LATERAL 2 VIEWS IMPRESSION: Patchy opacities within the lung bases, left greater than right, could besecondary to aspiration/pneumonitis, less likely atelectasis. No definitepleural effusion or pneumothorax. Low lung volumes accentuate heart size and pulmonary vascularity. Osseousdemineralization. Suture anchor right humeral head. Vianney Escobar APRN, C.N.P., D.N.P., M.S.N. IMG DIAGNOSTIC IMAGING PROCEDURES * (ABNORMAL) Venous Blood Gas and Electrolytes CG8+, POCT (08/25/2023 2:10 PM CDT) Only the most recent of2 resultswithin the time period is included. Sample Site, POCT Venstick 08/25/2023 2:20 PM CDT PCLX Comment: ----ADDITIONAL INFORMATION---- Performed at the Point of Care pH, Venous, POCT, B 7.27(L) 7.32 - 7.43 08/25/2023 2:20 PM CDT PCSM Comment: ----ADDITIONAL INFORMATION---- Performed at the Point of Care pCO2, Venous, POCT, B 40(L) 41 - 51 mm Hg 08/25/2023 2:20 PM CDT PCSM Comment: ----ADDITIONAL INFORMATION---- Performed at the Point of Care pO2, Venous, POCT, B 24 Not Applicable mm Hg 08/25/2023 2:20 PM CDT PCSM Comment: ----ADDITIONAL INFORMATION---- Performed at the Point of Care Base Excess, Venous, POCT, B -9 Not Applicable mmol/L 08/25/2023 2:20 PM CDT PCSM Comment: ----ADDITIONAL INFORMATION---- Performed at the Point of Care HCO3, Venous, POCT, B 18 Not Applicable mmol/L 08/25/2023 2:20 PM CDT PCSM Comment: ----ADDITIONAL INFORMATION---- Performed at the Point of Care Sodium, POCT, B 142 135 - 145 mmol/L 08/25/2023 2:20 PM CDT PCLX Comment: ----ADDITIONAL INFORMATION---- Performed at the Point of Care Potassium, POCT, B 3.8 3.6 - 5.2 mmol/L 08/25/2023 2:20 PM CDT PCLX Comment: ----ADDITIONAL INFORMATION---- Performed at the Point of Care Calcium, Ionized, POCT, B 5.00 4.65 - 5.30 mg/dL 08/25/2023 2:20 PM CDT PCLX Comment: ----ADDITIONAL INFORMATION---- Performed at the Point of Care Glucose, POCT, B 131 70 - 140 mg/dL 08/25/2023 2:20 PM CDT PCLX Comment: ----ADDITIONAL INFORMATION---- Performed at the Point of Care Hematocrit, POCT, B 37.0(L) 38.3 - 48.6 % 08/25/2023 2:20 PM CDT PCLX Comment: ----ADDITIONAL INFORMATION---- Performed at the Point of Care Blood (Blood, Venous) 08/25/2023 2:10 PM CDT 08/25/2023 1:58 PM CDT Vianney Escobar APRN, C.N.P., D.N.P., M.S.N. LAB POCT ORDERABLES - DEVICE [facility]OC [facility] [address] [place] [address], [facility] [address] [place] [address] [facility]M [facility] [address] [place] [address] * (ABNORMAL) Cystatin C with Estimated GFR (08/25/2023 1:40 PM CDT) Pathologist [facility] eGFR by Cystatin C 50(L) >60 mL/min/BSA 08/26/2023 11:23 AM CDT DTL Comment: Estimated GFR calculated using the CKD-EPI Cystatin C (2012) equation. ----ADDITIONAL INFORMATION---- Cystatin C-based eGFR may differ substantially from creatinine- based eGFR in patients with abnormal muscle mass or acutely changing renal function. ??Please interpret together with relevant clinical features. On 08/16/2020 the cystatin C assay method changed. Cystatin C eGFR results > 50 ml/min/1.73m2 are approximately 10% lower with the new assay. Cystatin C 1.33(H) 0.67 - 1.21 mg/L 08/26/2023 11:23 AM CDT DTL Blood (Blood, Venous) 08/25/2023 1:40 PM CDT 08/26/2023 10:53 AM CDT Gypsy Lu M.D. LAB BLOOD ADD-ON [facility] [address] [place] [address], [facility] [address] [place] [address] * LDA ANE ENDOTRACHEAL AIRWAY (08/25/2023 8:14 AM CDT) Narrative Ken Franks APRN, CRNA - 08/25/2023 8:14 AM CDT Ken Franks APRN, CRNA ? 08/25/2023 ??8:19 AM Airway Date/Time: 08/25/2023 8:14 AM Performed by: Ken Franks APRN, CRNA Authorized by: Ken Franks APRN, CRNA ?? Patient location during procedure: OR / Procedure Area PROCEDURE DETAILS: Mask difficulty assessment: not attempted Final airway type: video laryngoscope Laryngeal Manipulation: no ?? Final best view of glottic structures - Cormack/Lehane Score: grade 1 ETT location: oral VL device: glide scope [place] scope blade size: 4 Tube size: 7 ETT distance at teeth/gum: 22 Oral tube type: standard ETT Cuffed: yes Number of attempt to successful placement: 1 Airway confirmation: bilateral breath sounds, positive ETCO2 and bilateral chest rise Other previous techniques attempted: none PRE PROCEDURE DETAILS: Pre evaluation for airway management: procedure Urgency: elective Preop assessment of probable difficulty: no difficulty anticipated Preoxygenation: bag valve mask SEDATION / ANESTHESIA Anesthesia method: anesthesia POST PROCEDURE DETAILS: ? Procedure outcome: successful ?? Notable Events: no complications Ken Franks APRN, CRNA ANESTHESIA LUCIA SUH * Upper GI endoscopy-Gastroenterology Image Exam (08/25/2023 7:30 AM CDT) 08/25/2023 7:26 AM CDT Narrative [facility] - 08/25/2023 10:11 AM CDT This order has been created and auto-finalized to support the import of images acquired without order. The clinical documentation to support these images can be found on the encounter that produced images. Provider Not In System IMG NON RAD IMAGI NG PROCEDURES IIPA NA * Upper GI Endoscopy (08/25/2023 7:26 AM CDT) 08/25/2023 7:26 AM CDT Impressions [facility] - 08/25/2023 10:03 AM CDT Post-op Diagnoses: ? - Mucosal changes in the esophagus. ? - Food bolus (steak) in the lower third of the esophagus. Removal was ? successful. ? - Small (< 5 mm) esophageal varices. ? - Mucosal changes in the esophagus. ? - Benign-appearing esophageal stenosis. Dilated. ? - Portal hypertensive gastropathy. ? - There was evidence of congested appearing mucosa throughout the ? visualized duodenum consistent with mild portal hypertensive ? duodenopathy. ? - An overtube with cap was used to aid in foreign body removal and to ? facilitate repeated passages of the scope. Narrative [facility] - 08/25/2023 10:03 AM CDT Navjot 6 GI GI Patient Name: Niko Jennings Date of : 1950 Age: 72 Procedure Date: 08/25/2023 Procedure: ? Upper GI endoscopy Providers: ? Keny Gtz MD, Klaudia Frederick (Fellow) Referring Provider: ?Roya Aldridge Pre-op Diagnoses: ?Foreign body in the esophagus Recommendation: ? - The patient will be observed post-procedure, until all discharge ? criteria are met. ? - Discharge patient to home (ambulatory). ? - Mechanical soft diet, chew food well. ? - Continue present medications. ? - Return to GI clinic in 4 weeks. Consider repeat EGD in 4 weeks to ? reassess distal esophagus with possible dilation to 18mm, +/- banding of ? residual varices. Findings: ? Mucosal changes were found in the upper third of the esophagus ? consistent with gastric inlet patch. ? Food (meat bolus) was found in the lower third of the esophagus. After a ? few attmepts to suction the meat bolus into a cap with little success, ? the endoscope was removed, and an overtube was placed to aid in foreign ? body removal and to facilitate repeated passages of the scope. Removal ? was accomplished with multiple passes of the endoscope utilizing a ? rat-toothed forceps, snare, clear cap with suction, and water lavage. ? Small (< 5 mm) varices were found in the lower third of the esophagus. ? Erythematous mucosa without ischemic mucosal changes was found in the ? lower third of the esophagus secondary to the food bolus. ? One benign-appearing, intrinsic moderate stenosis secondary to prior ? banding was found in the lower third of the esophagus. This stenosis ? measured 1.3 cm (inner diameter) x 2 cm (in length). The stenosis was ? traversed. Due to this being the third bout of food impaction and the ? lack of any ischemic mucosal changes, eleanor dilation was elected. A ? TTS dilator was passed through the scope. Dilation with a 12-13.5-15 mm ? balloon dilator was performed to 15 mm with no mucosal disruption. ? Mild portal hypertensive gastropathy was found in the stomach. ? There is no endoscopic evidence of varices in the stomach. ? There was evidence of congested appearing mucosa throughout the ? visualized duodenum consistent with mild portal hypertensive ? duodenopathy. Procedural Details: ? The patient was seen, evaluated, history reviewed, airway and heart-lung ? exams were performed by licensed provider and were satisfactory for ? planned level of sedation care. The risks, benefits and alternatives for ? the procedure and sedation were discussed and informed consent was ? obtained. A procedural pause was conducted in the presence of assisting ? personnel to verify the correct patient identity and procedure to be ? performed. Throughout the procedure, the patient's blood pressure, ? pulse, and oxygen saturations were monitored continuously. The ? [id number] Upper Endoscope was introduced under direct vision through ? the mouth, and advanced to the second part of duodenum. The upper GI ? endoscopy was accomplished without difficulty. The patient tolerated the ? procedure well. Estimated Blood Loss: ?Estimated blood loss: none. Complications: ? No immediate complications. Sedation: ? Anesthesia was administered by an anesthesia professional. The following ? parameters were monitored: oxygen saturation, heart rate, blood ? pressure, respiratory rate, EKG, adequacy of pulmonary ventilation, and ? response to care. Attending Participation: I was present and participated during the entire ? procedure, including non-espana portions. Keny Gtz MD 08/25/2023 10:02:45 AM This report has been signed electronically. Number of Addenda: 0 Roya Aldridge M.D. GI PROCEDURE ORDER NOEM[employer]OW[employer] PROVATION NA * DX Hip to Ankle Standing (08/12/2023 10:54 AM CDT) Anatomical Region Laterality Modality Lower Extremity, Hip, Femur, Knee, TibFib, Ankle, Musculoskeletal RST LOS, Musculoskeletal ARZ LOS, Muskuloskeletal FLA LOS N/A Digital Radiography Impressions 08/12/2023 11:27 AM CDT Left MOISE without failure and trace stem varus alignment. Spurring AIIS. Right MOISE without failure and small focus of heterotopic ossification laterally. Stable trace lucency about the tip of the supraacetabular screw will be followed. Moderate SI joint degenerative arthritis. Lower lumbar spondylotic changes. ?? Full-length views of both lower extremities obtained for orthopedic measurement purposes. Moderate right and mild left genu varus alignment. Mild medial compartment narrowing both knees. Chronic ossifications about the tip of the right lateral malleolus. Moderate right ankle osteoarthritis. Benign reactive ossification projects over the medial aspect of the left mid fibular shaft. Narrative 08/12/2023 11:27 AM CDT EXAM: ??DX HIP AND PELVIS LEFT 4+ VIEWS, DX HIP TO ANKLE STANDING Procedure Note Rush Mercado M.D. - 08/12/2023 EXAM: DX HIP AND PELVIS LEFT 4+ VIEWS, DX HIP TO ANKLE STANDING IMPRESSION: Left MOISE without failure and trace stem varus alignment. Spurring AIIS. Right MOISE without failure and small focus of heterotopic ossificationlaterally. Stable trace lucency about the tip of the supraacetabular screwwill be followed. Moderate SI joint degenerative arthritis. Lower lumbar spondyloticchanges. Full-length views of both lower extremities obtained for orthopedicmeasurement purposes. Moderate right and mild left genu varus alignment.Mild medial compartment narrowing both knees. Chronic ossifications aboutthe tip of the right lateral malleolus. Moderate right ankle osteoarthritis. Benign reactive ossificationprojects over the medial aspect of the left mid fibular shaft. Whitney Feliciano P.A.-C., P.A. IMG DIAGN OSTIC IMAGING PROCEDURES * DX Hip And Pelvis Left 4+ Views (08/12/2023 10:53 AM CDT) Anatomical Region Laterality Modality Lower Extremity, Pelvis, Hip , Musculoskeletal RST LOS, Musculoskeletal ARZ LOS, Muskuloskeletal FLA LOS Left Digit al Radiography Impressions 08/12/2023 11:27 AM CDT Left MOISE without failure and trace stem varus alignment. Spurring AIIS. Right MOISE without failure and small focus of heterotopic ossification laterally. Stable trace lucency about the tip of the supraacetabular screw will be followed. Moderate SI joint degenerative arthritis. Lower lumbar spondylotic changes. ?? Full-length views of both lower extremities obtained for orthopedic measurement purposes. Moderate right and mild left genu varus alignment. Mild medial compartment narrowing both knees. Chronic ossifications about the tip of the right lateral malleolus. Moderate right ankle osteoarthritis. Benign reactive ossification projects over the medial aspect of the left mid fibular shaft. Narrative 08/12/2023 11:27 AM CDT EXAM: ??DX HIP AND PELVIS LEFT 4+ VIEWS, DX HIP TO ANKLE STANDING Procedure Note Rush Mercado M.D. - 08/12/2023 EXAM: DX HIP AND PELVIS LEFT 4+ VIEWS, DX HIP TO ANKLE STANDING IMPRESSION: Left MOISE without failure and trace stem varus alignment. Spurring AIIS. Right MOISE without failure and small focus of heterotopic ossificationlaterally. Stable trace lucency about the tip of the supraacetabular screwwill be followed. Moderate SI joint degenerative arthritis. Lower lumbar spondyloticchanges. Full-length views of both lower extremities obtained for orthopedicmeasurement purposes. Moderate right and mild left genu varus alignment.Mild medial compartment narrowing both knees. Chronic ossifications aboutthe tip of the right lateral malleolus. Moderate right ankle osteoarthritis. Benign reactive ossificationprojects over the medial aspect of the left mid fibular shaft. Whitney Feliciano P.A.-C., P.A. IMG DIAGN OSTIC IMAGING PROCEDURES * US Paracentesis with Imaging Guidance (07/10/2023 3:21 PM CDT) Anatomical Region Laterality Modality Abdomen, Ultrasound RST LOS, Ultrasound ARZ LOS, Procedure FLA LOS, Abdominal FLA LOS, Procedural, Procedural NWWI LOS N/A Ultrasound Impressions 07/10/2023 3:37 PM CDT Ultrasound-guided paracentesis. EP Narrative 07/10/2023 3:37 PM CDT EXAM: US PARACENTESIS WITH IMAGING GUIDANCE PRE-PROCEDURE: Patient seen and evaluated. Allergies, pertinent medications, and history reviewed. Discussed risks, benefits, alternatives for procedure, and obtained informed consent. Patient understands information and questions answered. Immediately prior to starting the procedure, in the presence of the assisting personnel, procedural pause was conducted to verify correct patient identity and verification of procedure to be performed, and as applicable, correct side and site, correct patient position, availability of implants, special equipment, or special requirements, and all image and specimen identification data. The roles and responsibilities of care team members, residents, and fellows were discussed. TECHNIQUE: Sterile. 1% lidocaine for local anesthesia. Location: Right upper quadrant peritoneal space. Needle size: 5 Fr centesis catheter. Volume aspirated: 1801 cc Appearance of aspirate: Clear yellow fluid Complication: None. Blood loss: None. Purpose: Diagnostic and therapeutic. PATIENT INSTRUCTIONS: Patient may be dismissed from the radiology department when dismissal criteria met. POST-PROCEDURE DIAGNOSIS: Ascites Procedure Note Juan F Valles M.D. - 07/10/2023 EXAM: US PARACENTESIS WITH IMAGING GUIDANCE PRE-PROCEDURE: Patient seen and evaluated. Allergies, pertinentmedications, and history reviewed. Discussed risks, benefits, alternativesfor procedure, and obtained informed consent. Patient understandsinformation and questions answered. Immediately prior to starting the procedure, in the presence of the assistingpersonnel, procedural pause was conducted to verify correct patientidentity and verification of procedure to be performed, and as applicable,correct side and site, correct patient position, availability of implants, special equipment, or specialrequirements, and all image and specimen identification data. The rolesand responsibilities of care team members, residents, and fellows werediscussed. TECHNIQUE: Sterile. 1% lidocaine for local anesthesia. Location: Right upper quadrant peritoneal space. Needle size: 5 Fr centesis catheter. Volume aspirated: 1801 cc Appearance of aspirate: Clear yellow fluid Complication: None. Blood loss: None. Purpose: Diagnostic and therapeutic. PATIENT INSTRUCTIONS: Patient may be dismissed from the radiologydepartment when dismissal criteria met. POST-PROCEDURE DIAGNOSIS: Ascites IMPRESSION: Ultrasound-guided paracentesis. EP Marv Myrick M.D., M.P.H. [facility] P ROCEDURES * Bacterial Culture, Aerobic + Susceptibility (07/10/2023 2:53 PM CDT) Bacterial Culture, Aerobic + Susc No growth after 5 days of incubation. 07/15/2023 10:53 AM CDT DTL Fluid (Peritoneal Fluid) 07/10/2023 2:53 PM CDT Narrative [facility] - 07/15/2023 10:53 AM CDT Bacterial Culture: Received Bactec aerobic and Bactec anaerobic bottles Marv Myrick M.D., M.P.H. LAB MICR OBIOLOGY - GENERAL ORDERABLES [facility] [address] [place] [address], [facility] [address] [place] [address] * Cell Count and Differential, Body Fluid (07/10/2023 2:53 PM CDT) Fluid Type Peritoneal /Paracente sis 07/10/2023 5:09 PM CDT [facility] Gross Appearance Serous 07/10/19 24 5:09 PM CDT [facility] Total Nucleated Cells 97 /mcL 07/10/2023 5:09 PM CDT [facility] Comment: ----REFERENCE VALUE---- Synovial: <150 /mcL Peritoneal: <500 /mcL Pleural: <500 /mcL Pericardial: <500 /mcL ----ADDITIONAL INFORMATION---- This test has been modified from the director of advertising sales's instructions. Its performance characteristics were determined by [facility] in a manner consistent with CLIA requirements. This test has not been cleared or approved by the [place].S. Food and Drug Administration. Neutrophils 7 % 07/10/2023 5:10 PM CDT [facility] Comment: ----REFERENCE VALUE---- Synovial: <25% Peritoneal: <25% Pleural: <25% Pericardial: <25% Lymphocytes 17 Synovial <75% % 07/10/2023 5:10 PM CDT [facility] Monocytes/Macropha ges 67 Synovial <70% % 07/10/2023 5:10 PM CDT [facility] Eosinophils 1 % 07/10/2023 5:10 PM CDT [facility] Comment: ----REFERENCE VALUE---- The reference range and other method performance specifications have not been established for this bodyfluid. The test result must be integrated into the clinical context for interpretation. Other Cells 8 % 07/10/2023 5:10 PM CDT [facility] Comment: ----REFERENCE VALUE---- The reference range and other method performance specifications have not been established for this bodyfluid. The test result must be integrated into the clinical context for interpretation. Other Cells Are: See Comment 07/11/2023 8:12 AM CDT [facility] Comment:Mesothelial cells Comment See Comment 07/11/2023 8:12 AM CDT PM Comment:No blasts or maligna nt cells seen. Reviewed by: Pipo 07/11/2023 8:12 AM CDT [facility] Fluid (Peritoneal Fluid) 07/10/2023 2:53 PM CDT Marv Myrick M.D., M.P.H. LAB BODY FLUIDS AND STOOLS ORDERABLES Performing Organization Address City/State/[facility] Co de Phone Number [facility] [address] [place] [address], [facility] [address] [place] [address] * OPHTHALMOLOGY IMAGE EXAM (01/21/2016 12:00 AM CDT) Anatomical Region Laterality Modality Other 01/21/2016 Addenda Addendum by ProviderLevar M.D. on 01/21/2016 12:00 AM CDT OPH^^^MCR Eyes Visual Tay-Manual 01/21/2016 00:00:00 Historical Provider IMG NON RAD IMAGING PROCEDURES from Last 3 Months or Most Recently Relevant to Health Maintenance Advance Directives For more information, please contact: [phone] * Full Code (Latest Code Status on File) Date Activated Date Inactivated Comments 09/10/2023 6:30 AM 09/10/2023 2:16 PM Question Answer Comments Full Code: Not Discussed Due to: Patient not available * Full Code Date Activated Date Inactivated Comments 09/04/2023 8:20 AM 09/05/2023 2:54 PM Question Answer Comments Full Code: Discussed * Full Code Date Activated Date Inactivated Comments 08/25/2023 8:57 PM 08/28/2023 3:17 PM Question Answer Comments Full Code: Discussed * Full Code Date Activated Date Inactivated Comments 05/13/2023 4:06 PM 05/13/2023 8:19 PM Question Answer Comments Full Code: Not Discussed Due to: Patient not available * Full Code Date Activated Date Inactivated Comments 02/01/2022 5:27 AM 02/01/2022 8:52 PM Question Answer Comments Full Code: Discussed Care Teams Wrist Hemmer Relationship Specialty Start Date End Date Elsewhere, Pcp PCP - General Internal Medicine 08/19/21
--- OUTSIDE RECORDS SUMMARY | 2023-09-12 06:10 | XMS_ITS | Clinical Summary ---
Author Organization [facility] Address [address] [place] [address] Care Team Providers Care Dispatcher Service Or Work Name Role Phone Elsewhere, Pcp Primary Care Provider Unavailabl e Source Comments Patient records contain information from all sites at [facility]. For routine questions regarding patient records, call [phone] during business hours, M-F 8:00 AM - 5:00 PM Central Time. Record requests for emergency care only can be directed to [phone] at any time.[facility] Allergies Active Allergy Reactions Criticality Noted Date [...] mouth daily. 180 tablet 3 01/12/2023 01/12/20 Active polyethylene glycol (MIRALAX) 17 gram powder [...] Take 500 mg by mouth daily. 08/25/19 Discontinued(The rapy completed) apixaban (ELIQUIS) 2.5 mg tablet Take 1 tablet (2.5 mg total) by mouth 2 (two) times a day. Take to minimize the risk for developing a blood clot. After your last dose of this medication start taking aspirin if this was recommended. 84 tablet 05/13/2023 08/25/19 Discontinued(The rapy completed) traMADoL (ULTRAM) 50 mg [...] Deep Vein Acute Femoral Right 05/12/2023 05/12/2023 Encounters Date Type Department Care Team Description 09/09/2023 10:39 PM CDT - 09/10/2023 12:00 PM CDT Hospital Encounter [facility], [facility], Tenth Floor [address] [place] [address] Elias Stuart M.D. Huebert, Robert C, M.D. Colitis (Primary Dx) Discharge Disposition: Home or Self Care 09/04/2023 1:00 PM CDT Anesthesia Event [facility] [address] [place] [address] Abner Cohen M.D. 09/04/2023 12:33 PM CDT - 09/04/2023 3:32 PM CDT Surgery [facility] OR [address] [place] [address] Elen Gomes M.D., Ph.D. REPAIR HERNIA UMBILICAL WITHOUT MESH. 09/04/2023 8:05 AM CDT - 09/05/2023 12:54 PM CDT Hospital Encounter [facility], [facility], Tenth Floor [address] [place] [address] Elen Gomes M.D., Ph.D. Discharge Disposition: Home or Self Care 09/03/2023 12:08 PM CDT - 09/03/2023 11:59 PM CDT Hospital Encounter Department of Radiology, [facility], in [place], [place] [address] [place] [address] Elen Gomes M.D., Ph.D. Hydrocele Discharge Disposition: Home or Self Care 09/03/2023 11:00 AM CDT Office Visit Clemente Kimberly pratibha [facility] in [place], [place] [address] [place] [address] Elen Gomes M.D., Ph.D. Chronic Liver Disease (Primary Dx) 09/01/2023 Orders Only [facility] in [place], [place] [address] [place] [address] Elen Gomes M.D., Ph.D. Hydrocele (Primary Dx) 08/28/2023 Remote Monitoring Remote Patient Monitoring [facility] [address] [place] [address] Briana Mayo 08/27/2023 2:05 PM CDT Ancillary Procedure Department of Nursing 08/27/2023 Orders Only Division of Gastroenterology in [place], [place] [address] [place] [address] Fabiola Reyes M.D. Gastro-Esophageal Reflux Disease With Esophagitis Without Bleeding (Primary Dx); Secondary Esophageal Varices Without Bleeding (HCC); Hypertension Portal (HCC); Stricture Esophagus 08/25/2023 8:09 AM CDT Anesthesia Event Division of Gastroenterology in [place], [place] [address] [place] [phone] Ken Franks APRN, RICHELLE 08/25/2023 7:30 AM CDT Ancillary Procedure Department of Gastroenterology 08/24/2023 10:17 PM CDT - 08/28/2023 1:11 PM CDT Hospital Encounter [facility], [facility], Sixth Floor [address] [place] [phone] Yao Yoon M.D. Laack, Torrey A, M.D. Sievers, Ashley E, M.D. Jovani Salomon M.D. Gypsy Lu M.D. Pearson, Randall K, M.D. Hoskote, Sumedh S MMarcusB.B.S. Pneumonia (Primary Dx); Food In Esophagus Causing Other Injury Initial; Acidosis Lactic Discharge Disposition: Home or Self Care 08/12/2023 1:30 PM CDT [facility] [place], [place] [address] [place] [phone] Elen Gomes M.D., Ph.D. Hernia Inguinal Bilateral (Primary Dx); Hernia Inguinal 08/12/2023 11:33 AM CDT - 08/12/2023 11:59 PM CDT Hospital Encounter Department of Laboratory Medicine and Pathology, [facility] in [place], [place] [address] [place] [phone] Marv Myrick M.D., M.P.H. Alcoholic Cirrhosis Of Liver With Ascites (HCC) Discharge Disposition: Home or Self Care 08/12/2023 10:14 AM CDT - 08/12/2023 11:32 AM CDT Hospital Encounter Department of Radiology, [facility], in [place], [place] [address] [place] [phone] Whitney Feliciano P.A.-C., P.A. 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 Hepatitis Autoimmune (HCC); Cirrhosis Nonalcoholic (HCC); Ascites Chronic 07/13/2023 Orders Only Division of Gastroenterology in [address] [phone] Marv Myrick M.D., M.P.H. Hernia Inguinal (Primary Dx); Alcoholic Cirrhosis Of Liver With Ascites (HCC) 07/10/2023 1:56 PM CDT - 07/10/2023 3:28 PM CDT Hospital Encounter Department of Radiology, [facility] in [place], [place] [address] [place] [phone] Marv Myrick M.D., M.P.H. Hepatitis Autoimmune (HCC); Cirrhosis Nonalcoholic (HCC); Ascites Chronic Discharge Disposition: Home or Self Care 07/07/2023 Clinical Communication Division of Gastroenterology in [place], [place] [address] [place] [phone] Marv Myrick M.D., M.P.H. Hepatobiliary; Order Request from Last 3 Months Immunizations Name Administration Dates Next Due Influenza Split 12/22/2007 Family History Medical History Relation Name Comments Arthritis Father fernanda jennifer no Diabetes Father fernanda jennifer no Rheum arthritis Father fernanda jennifer no Stroke Father fernanda rodriguez no Coronary artery disease Mother frankie rodriguez By pass surgery Hypertension Mother frankie rodriguez no Relation Name Status Comments Father fernanda rodriguez Social History Tobacco Use Types Packs/Day Years Used Date Smoking Tobacco: Never Smokeless Tobacco: Never Alcohol Use Standard Drinks/Week Comments Not Currently 0 (1 standard drink = 0.6 oz pur e alcohol) Don? t drink [facility] Utilities Answer Date Recorded In the past 12 months has e [employer], [email or web address], oil, or water [employer] threatened to shut off services in your [...] often do you attend chur ch or mormon services? More than 4 times per year 04/27/2022 Do you belong to any clubs o r organizations such as episcopalian groups, unions, fraternal or athletic groups, or [...] and heating? Not hard at all 04/27/2022 [facility] Occupational Stress Questionnaire Answer Date Recorded [...] Date Recorded Dental: Regular Dentist Yes 11/12/19 21 Employment Answer Date Recorded Employment status Retired 05/07/2023 Housing Stability Answer Date Recorded What is your living situation today? I have a [place] [address] to live 09/10/2023 Education Answer Date Recorded What is the highest level of school you have completed or the highest degree you have received? Bachelor's degree (e.g., BA, AB, BS) 11/11/2020 Sex and Gender Information Value Date Recorded Sex Assigned at Male 02/12/2021 6:18 PM TEMPORARY HELP AGENCY REFERRAL CLERK Gender Identity Male 11/11/2020 11:30 AM CDT [...] 09/17/2023 10:30 AM CDT Office Visit Clemente [facility] in [place], [place] [address] [place] [phone] Elen Gomes M.D., Ph.D. [address] [place] [phone] 10/16/2023 11:00 AM CDT Appointment Division of Gastroenterology in [place], [place] [address] [place] [phone] Marv Myrick M.D., M.P.H. [address] [place] [phone] Discharge Disposition: Home or Self Care 11/10/2023 8:00 AM CDT Appointment Department of Laboratory Medicine and Pathology, [facility] in [place], [place] [address] [place] [phone] Marv Myrick M.D., M.P.H. [address] [place] [phone] 11/10/2023 3:00 PM CDT Office Visit Division of Gastroenterology in [place], [place] [address] [place] [address] Marv Myrick M.D., M.P.H. [address] [place] [phone] Health Maintenance Due Date Last Done Comments CT Colonography 1948 Cologuard 1948 Diabetic Office Visit with F oot Exam 1948 FIT 1948 Hepatitis C Screening 1950 Urine Albumin 1950 Hepatitis A Vaccines (1 of 2 - Risk 2-dose series) 09/26/1967 Zoster Vaccines (2 of 3) 12/02/2012 10/07/2012 Dilated Eye Exam 01/20/2017 01/21/2016, 01/21/2016 DTaP,Tdap,and Td Vaccines (3 - Td or Tdap) 09/01/2021 09/02/2011, 12/01/2007 COVID-19 Vaccine (5 - 2022-2 4 season) 2022 09/18/2021, 03/20/2021, 06/22/2020, Additional history exists Influenza Vaccine (#1) 2022 , 12/24/2020, 01/18/2020, Additional history exists Depression Screening (Annual PHQ-2) 03/23/2023 Hemoglobin A1C 03/05/2024 09/04/2023, 04/24, 11/14/2019, Additional history exists Abdominal Ultrasound 03/11/2024 09/10/2023, 08/27/2023, 10/30/2022, Additional history exists Office Visit for Blood Press ure Check / Re-check 05/12/2024 05/12/2023 Creatinine Level (Kidney Fun ction Test) 09/08/2024 09/09/2023, 09/05/2023, 08/28/2023, Additional history exists Potassium Level 09/08/2024 09/09/2023, 08/21, 08/28/2023, Additional history exists Sodium Level 09/08/2024 09/09/2023, 08/21, 08/28/2023, Additional history exists Lipid (Cholesterol) Screening 05/12/2027, 07/04/2020, 10/26/2017 Colonoscopy 09/15/2028 09/15/2018 Colorectal Cancer Screening 09/15/2028 Hepatitis B Vaccines Completed 05/22/1992, 12/20/1991, 11/22/1991 Pneumococcal vaccine (65+ years) Completed 09/30/19, 09/28/2013 Fall Risk Screen (Annual) Completed 09/04/2023 Medical Devices Implanted Type Area Battery Assembler Device Identifier Shelf Expiration Date Model / Serial / Lot [facility] 235 - [id number] Implanted:Qty: 1 on 02/12/2021 by Markie March M.D. at [facility] [employer] e.g. pins/screws /rods [employer] [id number] 09/01/2023 [id number] / / [id number] Description:Implanted in duo denum-polypectomy site. [facility] Endo 235 - [id number] Implanted:Qty: 1 on 02/12/2021 by Markie March M.D. at [facility] [employer] e.g. pins/screws /rods [employer] [id number] 09/01/2023 [id number] / / [id number] Description:Implanted in duo denum at polypectomy site. Hip Implant Hip Implant Hip Description:Right hip replac ement Lnr X3 Mary Kate 40 - [id number] Implanted:Qty: 1 on 05/13/2023 by Pete Rojas M.D. at [facility] Hip Implant Left: Hip Cammal 02/15/2028 723-00-4 0E / / [id number] Shll Acet Trd Chl 52e - [id number] Implanted:Qty: 1 on 05/13/2023 by Pete Rojas M.D. at [facility] Hip Implant Left: Hip Marta 03/02/2028 702-04-5 2E / / [id number] A Kn Stm Blx -2.5 - [id number] Implanted:Qty: 1 on 05/13/2023 by Pete Rojas M.D. at [facility] Hip Implant Left: Hip Cammal 03/16/2028 6519-T-0 25 / / [id number] Fem Hd Blx +0x40 - [id number] Implanted:Qty: 1 on 05/13/2023 by Pete Rojas M.D. at [facility] Hip Implant Left: Hip Cammal 02/16/2028 6519-1-0 40 / / [id number] Hip Stm Ins Hofst Sz8 29i979 - [id number] Implanted:Qty: 1 on 05/13/2023 by Pete Rojas M.D. at [facility] Hip Implant Left: Hip Cammal 01/07/2026 7000-660 8 / / [id number] Shoulder Implant Shoulder Implant Shoulder Description:Right shoulder [...] PANEL, S Routine 05/12/2022 8 :33 AM TEMPORARY HELP AGENCY REFERRAL CLERK OPHTHALMOLOGY IMAGE EXAM Routine 01/21/2016 12:00 AM [...] Quentin Saunders M.D. LAB BLOOD NON ADD-ON Performing Organization Address City/[facility]/ZIP Co de Phone Number [facility] [address] [place], [place] [phone] [place] [address] [address] [place] [address] * Influenza A/B, SARS CoV-2, PCR, Rapid Symptomatic (09/10/2023 1:46 AM CDT) [facility] Influenza A, PCR, Rapid, V Negative Negative 09/10/2023 2:15 AM CDT [facility] Influenza B, PCR, Rapid, V Negative Negative 09/10/2023 2:15 AM CDT [facility] SARS CoV-2, PCR, Rapid, V Undetected Undetected 09/10/2023 2:15 AM CDT [facility] Comment: ----ADDITIONAL INFORMATION---- This RT-PCR test was performed using the [employer] SARS-CoV-2 and Influenza A/B Reagent assay from [employer], which has received Emergency Use Authorization(EUA) by the U.S. Food and Drug Administration. Fact sheets for this Emergency Use Authorization (EUA) assay can be found at the following links: For Healthcare Providers: https://www.fda.gov/media/055205/download For Patients: https://www.fda.gov/media/074487/download Infl A/B, SARS CoV-2, PCR, Source Swab, Nasopharynx 09/10/2023 1:52 AM CDT [facility] Swab (Nasopharynx) 09/10/2023 1:46 AM CDT 09/10/2023 1:52 AM CDT Quentin Saunders M.D. LAB MICROBIOLOGY - G ENERAL ORDERABLES Performing Organization Address City/[facility]/ZIP Co de Phone Number [facility] [address] [place] [address], [facility] [address] [place] [address] * (ABNORMAL) Lactate for Sepsis with Reflex, POCT (09/10/2023 1:13 AM CDT) Only the most recent of2 resultswithin the time period is included. Lactate, POCT 3.01(H) 0.50 - 2.20 mmol/L 09/10/2023 1:22 AM CDT PCLX Blood (Blood, Venous) 09/10/2023 1:13 AM CDT 09/10/2023 1:13 AM CDT Quentin Saunders M.D. LAB POCT ORDERABLES - DEVICE POC [facility] [address] [place] [address], [facility] PCLX [facility] POC [address] [place] [address] * CT Chest Angiogram and Pulmonary Arteries [...] - 2.2 mmol/L 09/09/2023 11:07 PM CDT [facility] (Blood, Venous) 09/09/2023 11:01 PM CDT 09/09/2023 11:05 PM CDT Quentin Saunders M.D. LAB BLOOD NON ADD-ON [facility] [address] [place] [address], [facility] [address] [place] [address] * (ABNORMAL) Hepatic Function Panel (09/09/2023 11:01 [...] CDT Quentin Saunders M.D. LAB BLOOD ADD-ON [facility] [address] [place] [address], [facility] [address] [place] [address] * (ABNORMAL) CBC with Differential, Blood (09/09/2023 [...] M.D. LAB BLOOD ADD-ON Performing Organization Address City/[facility]/ZIP Co de Phone Number [facility] [address] [place] [address], [facility] STMA [facility] [address] [place] [address] [facility] [address] [place] [address] * Lipase (09/09/2023 11:01 PM CDT) Lipase, S 45 13 - 60 U/L 09/10/2023 12:17 AM CDT DTL Blood (Blood, Venous) 09/09/2023 11:01 PM CDT 09/09/2023 11:24 PM CDT Quentin Saunders M.D. LAB BLOOD ADD-ON [facility] [address] [place] [address], [facility] DTL [facility] [address] [place] [address] * (ABNORMAL) Basic Metabolic Panel (09/09/2023 11:01 [...] CDT Quentin Saunders M.D. LAB BLOOD ADD-ON [facility] [address] [place] [address], [facility] STMA [facility] [address] [place] [address] * (ABNORMAL) Prothrombin Time (PT) (09/05/2023 9:36 AM CDT) Only the most recent of2 resultswithin the time period is included. Pathologist [facility] Prothrombin Time, P 20.7(H) 9.4 - 12.5 sec 09/05/2023 10:30 AM CDT DTL INR 1.9 0.9 - 1.1 09/05/2023 10:30 AM CDT DTL Comment: ----ADDITIONAL INFORMATION---- Standard intensity warfarin therapeutic range: 2.0 to 3.0 ?? High intensity warfarin therapeutic range: 2.5 to 3.5 Blood (Blood, Venous) 09/05/2023 9:36 AM CDT 09/05/2023 9:51 AM CDT Ti Delvalle M.D., M.S. LAB BLOOD ADD-ON [facility] [address] [place] [address], [facility] [address] [place] [address] * (ABNORMAL) CBC without Differential (09/05/2023 6:50 AM CDT) Only the most recent of2 resultswithin the time period is included. [facility] Hemoglobin 9.7(L) 13.2 - 16.6 g/dL 09/05/2023 [...] Leda Brandt M.D., Ph.D. LAB BLOOD ADD-ON Performing Organization Address City/[facility]/ZIP Co de Phone Number [facility] [address] [place], [place] [phone] [place] [address] DTL [facility] [address] [place] [address] * Glucose, POCT (09/04/2023 3:30 PM CDT) Only the most recent of15 resultswithin the time period is included. Glucose, POCT, B 129 70 - 140 mg/dL 09/04/2023 5:25 PM CDT PCDE Site Capillary 09/04/2023 5:25 PM CDT PCDE Blood 09/04/2023 3:30 PM CDT 09/04/2023 5:25 PM CDT Unknown Provider LAB POCT ORDERABLES- MANUAL Performing Organization Address [facility] Co de Phone Number [facility]OC [facility] [address] [place] [address], [facility] PCDE [facility] POC [address] [place] [address] * LDA ANE ENDOTRACHEAL AIRWAY (09/04/2023 1:15 PM CDT) Narrative Brooke Rosales APRN, CRNA, MNA - 09/04/2023 1:15 PM CDT Brooke Rosales APRN, CRNA, MNA ? 09/04/2023 ??1:23 PM Airway Date/Time: 09/04/2023 1:15 PM Performed by: Brooke Rosales APRN, CRNA, MNA Authorized by: Abner Cohen M.D. ?? Patient location during procedure: OR / Procedure Area PROCEDURE DETAILS: Mask difficulty assessment: not attempted Final airway type: video laryngoscope Laryngeal Manipulation: no ?? Final best view of glottic structures - Cormack/Lehane Score: grade 1 ETT location: oral VL device: glide scope [place] scope blade size: 4 Tube size: 7.5 [...] Leda Brandt M.D., Ph.D. LAB BLOOD ADD-ON [facility] [address] [place] [address], [facility] [address] [place] [address] * US Scrotum with Doppler (09/03/2023 1:59 [...] has overall improved. Elen Gomes M.D., Ph.D. G US PROCEDU RES * Arm, Right-Nursing Image [...] System IMG NON RAD IMAGI NG PROCEDURES Performing Organization Address [facility] Co de Phone Number IIMS NA * Magnesium (08/27/2023 6:07 AM CDT) Only the most recent of2 resultswithin the time period is included. Pathologist [facility] Magnesium, S 1.9 1.7 - 2.3 mg/dL 08/27/2023 6:51 AM CDT DTL Blood (Blood, Venous) 08/27/2023 6:07 AM CDT 08/27/2023 6:40 AM CDT Barbara Marin M.D. LAB BLOOD ADD-ON Performing Organization Address [facility] Co de Phone Number [facility] [address] [place] [address] * Bacteria / Neda Culture, Blood #2 (08/26/2023 3:16 PM CDT) Only the most recent of3 resultswithin the time period is included. Pathologist [facility] Bacteria/Taylor da Culture, Blood No growth after 5 days of incubation. 08/31/2023 5:02 PM CDT DTL Blood (Blood, Peripheral Draw) 08/26/2023 3:16 PM CDT 08/26/2023 4:13 PM CDT Comment:Specimen Source Site : Blood Kenneth Mcnally M.D. LAB MICROBIOLOGY - G ENERAL ORDERABLES Performing Organization Address [facility] Co de Phone Number [facility] [address] [place] [address] * CT Chest with IV Contrast (08/26/2023 [...] aggressive bone lesions. Procedure Note Gladys Viera M.B.B.SMarcus - 08/26/2023 EXAM: CT CHEST WITH IV [...] the upper abdomen. Mild height loss of [id number] body is most likely chronic. No aggressive [...] be inflammatory or suggest low-grade malignancy. Nelly ADAM CT PROCEDURES * ECG 12 Lead (08/26/2023 10:39 AM CDT) Only the most recent of2 resultswithin the time period is included. Ventricular Rate ECG/Min 57 BPM MUSE SC Interval 126 ms MUSE QRSD Interval 102 ms MUSE QT Interval 472 ms MUSE QTC Interval 459 ms MUSE P [place] 19 degrees MUSE R [place] -4 degrees MUSE T Wave [place] 17 degrees MUSE 08/26/2023 10:3 9 AM [...] Line (08/26/2023 10:31 AM CDT) Narrative Ese Fowler R.R.T., L.R.T. - 08/26/2023 10:31 AM CDT Ese Fowler R.R.T., L.R.T. ? 08/26/2023 10:32 AM Invasive Line Performed by: Ese Fowler R.R.T., L.R.T. Authorized by: Gypsy Lu M.D. [...] Kirk Rm M.D. LAB BLOOD NON ADD-ON [facility] [address] [place] [address], [facility] [address] [place] [address] * (ABNORMAL) Renal Function Panel (08/26/2023 4:38 [...] M.D. LAB BLOOD ADD-ON Performing Organization Address City/[facility] Co de Phone Number [facility] [address] [place] [address], [facility] 200 [place] [address] * (ABNORMAL) Iron and Total Iron-Binding Capacity (08/26/2023 4:38 AM CDT) Iron 48(L) 50 - 150 mcg/dL 08/26/2023 5:50 AM CDT DTL Total Iron Binding Capacity 211(L) 250 - 400 mcg/dL 08/26/2023 5:50 AM CDT DTL Percent Saturation 23 14 - 50 % 08/26/2023 5:50 AM CDT DTL Blood (Blood, Venous) 08/26/2023 4:38 AM CDT 08/26/2023 5:17 AM CDT Kenneth Mcnally M.D. LAB BLOOD ADD-ON Performing Organization Address City/[facility] Co de Phone Number [facility] [address] [place] [address], [facility] [address] [place] [address] * Ferritin (08/26/2023 4:38 AM CDT) Ferritin, S 71 31 - 409 mcg/L 08/26/2023 5:50 AM CDT DTL Blood (Blood, Venous) 08/26/2023 4:38 AM CDT 08/26/2023 5:17 AM CDT Kenneth Mcnally M.D. LAB BLOOD ADD-ON [facility] [address] [place] [address], [facility] DTL [facility] [address] [place] [address] * Patient Status (08/25/2023 9:12 PM CDT) Pathologist [facility] FIO2 room air 0.21=AIR 08/25/2023 9:15 PM CDT [facility] Spont. breaths/min 21 08/25/2023 9:15 PM CDT [facility] Blood 08/25/2023 9:12 PM CDT 08/25/2023 9:15 PM CDT Kenneth Mcnally M.D. LAB BLOOD NON ADD-ON Performing Organization Address City/[facility] Co de Phone Number [facility] [address] [place] [address], [facility] STMA [facility] [address] [place] [address] * (ABNORMAL) Blood Gas with Coox, Venous (08/25/2023 9:12 PM CDT) Pathologist [facility] pO2, Venous, B 18 Not applicable mm [...] Kenneth Mcnally M.D. LAB BLOOD NON ADD-ON [facility] [address] [place] [address], [facility] STMA [facility] [address] [place] [address] * Critical Care (08/25/2023 5:05 PM CDT) [...] 4:08 PM CDT Vianney Escobar APRN, C.N.P., D.N.P., M.S.N. LAB POCT ORDERABLES - DEVICE POC [facility] [address] [place] [address], [facility] PCLX [facility] [place] P[facility] [address] [place] [address] * (ABNORMAL) Dipstick, POCT, Urine (08/25/2023 3:35 PM CDT) Pathologist [facility] Glucose, POCT, U 500(A) Negative mg/dL 08/25/2023 3:36 PM CDT PCED Ketone, POCT, U Negative Negative mg/dL 08/25/2023 3:36 PM CDT PCED Specific [place], POCT, U 1.020 1.005 - 1.030 08/25/2023 [...] Unknown Provider LAB POCT ORDERABLES - DEVICE POC [facility] OUTPATIENT LABS [address] [place] [address], [facility] PCED [facility] POC [address] [place] [address] * Osmolality, Urine (08/25/2023 3:18 PM CDT) Osmolality, U 597 150 - 1150 mOsm/kg 08/25/2023 3:58 PM CDT DTL Urine 08/25/2023 3:18 PM CDT 08/25/2023 3:35 PM CDT Zachary Romano M.D. LAB URINE ORDERABLES Performing Organization Address City/[facility]/ZIP Co de Phone Number [facility] [address] [place] [address], [facility] [address] [place] [address] * (ABNORMAL) Dipstick, Urine (08/25/2023 3:18 PM [...] CDT Zachary Romano M.D. LAB URINE ORDERABLES [facility] [address] [place] [address], [facility] [address] [place] [address] * pH, Random, Urine (08/25/2023 3:18 PM CDT) pH, Random, U 5.7 4.5 - 8.0 08/25/2023 3:58 PM CDT DTL Urine 08/25/2023 3:18 PM CDT 08/25/2023 3:35 PM CDT Zachary Romano M.D. LAB URINE ORDERABLES Performing Organization Address City/[facility]/ZIP Co de Phone Number [facility] [address] [place] [address], [facility] [address] [place] [address] * (ABNORMAL) Microscopic Manual (08/25/2023 3:18 PM [...] M.D. LAB URINE ORDERABLES Performing Organization Address City/[facility]/ZIP Co de Phone Number [facility] [address] [place] [address], [facility] [address] [place] [address] * Bacterial Culture, Aerobic + Susceptibility, Urine (08/25/2023 3:18 PM CDT) Urine Culture No growth after 1 day of incubation. 08/26/2023 12:32 PM CDT DTL Urine (Urine, Straight Catheter) 08/25/2023 3:18 PM CDT 08/25/2023 5:52 PM CDT Comment:Specimen Source Site : Urine Zachary Romano M.D. LAB MICROBIOLOGY - G ENERAL ORDERABLES Performing Organization Address City/[facility]/ZIP Co de Phone Number [facility] [address] [place] [address], [facility] [address] [place] [address] * Urinalysis, with Microscopic: Urine, Straight Catheter [...] CDT Zachary Romano M.D. LAB URINE ORDERABLES [facility] [address] [place] [address], [facility] [address] [place] [address] * DX Chest AP or PA and [...] Suture anchor right humeral head. Vianney Escobar APRN C.N.P., D.N.P., M.S.N. IMG DIAGNOSTIC IMAGING PROCEDURES [...] CDT 08/25/2023 1:58 PM CDT Vianney Escobar APRN C.N.P., D.N.P., M.S.N. LAB POCT ORDERABLES - DEVICE POC [facility] [address] [place] [address], [facility] PCLX [facility] POC [address] [place] [address] [facility] [address] [place] [address] * (ABNORMAL) Cystatin C with Estimated GFR (08/25/2023 1:40 PM CDT) eGFR by Cystatin C 50(L) >60 mL/min/BSA [...] CDT Gypsy Lu M.D. LAB BLOOD ADD-ON [facility] [address] [place] [address], [facility] [address] [place] [address] * LDA ANE ENDOTRACHEAL AIRWAY (08/25/2023 8:14 [...] ETT location: oral VL device: glide scope [place] scope blade size: 4 Tube size: 7 [...] ?? Notable Events: no complications Ken Franks FIRST HELPER, RICHELLE ANESTHESIA LUCIA SUH * Upper GI endoscopy-Gastroenterology Image Exam (08/25/2023 7:30 AM CDT) 08/25/2023 7:26 AM CDT Narrative [facility] - 08/25/2023 10:11 AM CDT This order has been created and auto-finalized to support the import of images acquired without order. The clinical documentation to support these images can be found on the encounter that produced images. Provider Not In System IMG NON RAD IMAGI NG PROCEDURES IIMS NA * Upper GI Endoscopy (08/25/2023 7:26 AM CDT) 08/25/2023 7:26 AM CDT Impressions [facility] - 08/25/2023 10:03 AM [...] facilitate repeated passages of the scope. Narrative [facility] - 08/25/2023 10:03 AM CDT Navjot 6 GI GI Patient Name: Niko Rodriguez Date of : 1950 Age: 72 Procedure [...] oxygen saturations were monitored continuously. The ? [id number] Upper Endoscope was introduced under direct vision [...] Ultrasound-guided paracentesis. EP Marv Myrick M.D., M.P.H. [facility] P ROCEDURES * Bacterial Culture, Aerobic + Susceptibility (07/10/2023 2:53 PM CDT) Bacterial Culture, Aerobic + Susc No growth after 5 days of incubation. 07/15/2023 10:53 AM CDT DTL Fluid (Peritoneal Fluid) 07/10/2023 2:53 PM CDT Narrative [facility] - 07/15/2023 10:53 AM CDT Bacterial Culture: Received Bactec aerobic and Bactec anaerobic bottles Marv Myrick M.D., M.P.H. LAB MICR OBIOLOGY - GENERAL ORDERABLES [address] [address], [facility] [address] [address] * Cell Count and Differential, Body Fluid [...] This test has been modified from the paint spray tender's instructions. Its performance characteristics were determined by [facility] in a manner consistent with CLIA requirements. This test has not been cleared or approved by the [place].S. Food and Drug Administration. Neutrophils 7 % 07/10/2023 5:10 PM CDT [facility] Comment: ----REFERENCE VALUE---- Synovial: <25% Peritoneal: <25% Pleural: <25% Pericardial: <25% Lymphocytes 17 Synovial <75% % 07/10/2023 5:10 PM CDT PM Monocytes/Macropha ges 67 Synovial <70% % 07/10/2023 5:10 PM CDT [facility] Eosinophils 1 % 07/10/2023 5:10 PM CDT PM Comment: ----REFERENCE VALUE---- The reference range and other method performance specifications have not been established for this bodyfluid. The test result must be integrated into the clinical context for interpretation. Other Cells 8 % 07/10/2023 5:10 PM CDT [facility] Comment: ----REFERENCE VALUE---- The reference range and other method performance specifications have not been established for this bodyfluid. The test result must be integrated into the clinical context for interpretation. Other Cells Are: See Comment 07/11/2023 8:12 AM CDT [facility] Comment:Mesothelial cells Comment See Comment 07/11/2023 8:12 AM CDT [facility] Comment:No blasts or maligna nt cells seen. Reviewed by: Pipo 07/11/2023 8:12 AM CDT [facility] Fluid (Peritoneal Fluid) 07/10/2023 2:53 PM CDT Marv Myrick M.D., M.P.H. LAB BODY FLUIDS AND STOOLS ORDERABLES [facility] [address] [place] [address], [facility] [address] [place] [address] * OPHTHALMOLOGY IMAGE EXAM (01/21/2016 12:00 AM CDT) Anatomical Region Laterality Modality Other 01/21/2016 Addenda Addendum by Provider, Steffen Cristobal on 01/21/2016 12:00 AM CDT OPH^^^MCR Eyes Visual Tay-Manual 01/21/2016 00:00:00 Historical Provider IMG NON RAD IMAGING PROCEDURES from Last 3 Months or Most Recently Relevant to Health Maintenance Advance Directives For more information, please contact: [phone] * Full Code (Latest Code Status on [...] Answer Comments Full Code: Discussed Care Teams Dispatcher Service Or Work Relationship Specialty Start Date End Date Elsewhere, Pcp PCP - General Internal Medicine 08/19/21
--- OUTSIDE RECORDS SUMMARY | 2023-09-12 06:10 | XMS_ITS ---
Author Organization [facility] Address [address] [place] [address] Care Team Providers Care Medical Doctor Name Role Phone Unavailable Unavailable Unavailable Surgery Details Not on file Complications Check Surgery Details section. Procedure Estimated Blood Loss Check Surgery Details section. Procedure Findings Check Surgery Details section. Procedure Specimens Taken Check Surgery Details section.
--- OUTSIDE RECORDS SUMMARY | 2023-09-12 06:10 | XMS_ITS | Encounter Summary ---
Author Organization [facility] Address [address] [place] [id number] Care Team Providers Care Medical Underwriter Name Role Phone Elsewhere, Pcp Primary Care Provider Unavailabl e Reason for Visit * Reason Comments Abdominal Pain Post-op Problem * Auth/Cert (Routine) Specialty Diagnoses / Procedures Referred By Contac t Referred To Contact Diagnoses Colitis Abdominal Pain Procedures n/a Referral ID Status Reason Start Date Expiration Date Visits Re quested Visits Authorized [id number] 1 1 Encounter Details Date Type Department Care Team (Latest Contact Info) Description 09/09/2023 10:39 PM CDT - 09/10/2023 12:00 PM CDT Hospital Encounter [facility], [facility], Tenth Floor [address] [place] [phone] Elias Stuart M.D. [address] [place] [phone] Keny Benz M.D. [address] [place] [address] [phone] Colitis (Primary Dx) Discharge Disposition: Home or Self Care Social History Tobacco Use Types Packs/Day Years Used Date Smoking Tobacco: Never Smokeless Tobacco: Never Alcohol Use Standard Drinks/Week Comments Not Currently 0 (1 standard drink = 0.6 oz pur e alcohol) Don? t drink [facility] Utilities Answer Date Recorded In the past 12 months has e electric, gas, oil, or water company [...] often do you attend chur ch or uatsdin services? More than 4 times per year 04/27/2022 Do you belong to any clubs o r organizations such as episcopal groups, unions, fraternal or athletic groups, or [...] and heating? Not hard at all 04/27/2022 [employer] - Occupational Stress [...] your living situation today? I have a [facility] place to live 09/10/2023 Education Answer Date Recorded What is the highest level of school you have completed or the highest degree you have received? Bachelor's degree (e.g., BA, AB, BS) 11/11/2020 Sex and Gender Information Value Date Recorded Sex Assigned at Male 02/12/2021 6:18 PM [employer] Gender Identity Male 11/11/2020 11:30 AM CDT Sexual Orientation Straight 11/11/2020 11 :30 AM CDT documented as of this encounter Last Filed Vital Signs Vital Sign Reading [...] Mass Index 19.28 09/10/2023 5:52 AM CDT documented in this encounter Discharge Summaries * Abbie Garza M.D. - 09/10/2023 9:40 AM CDT DISCHARGE SUMMARY BRIEF OVERVIEW Hospital: [facility] Discharge Provider: Keny Benz M.D. Primary Care Provider at Discharge: Primary Care Providers: Elsewhere, Pcp (General) No address on file Primary Care Provider Phone Number: None Primary Care Provider Fax Number: None Other Providers: None Primary Team: RST Liver Transplant Admission Date: 09/09/2023 Discharge Date: 09/10/2023 PRINCIPAL DIAGNOSIS Colitis SECONDARY DIAGNOSES Principal Problem: Colitis Resolved Problems: * No resolved hospital problems. * DISCHARGE DISPOSITION Home or Self Care [1] ACTIVE ISSUES REQUIRING FOLLOW UP OUTPATIENT FOLLOW UP Scheduled Appointments 09/17/2023 10:30 AM Elen Gomes M.D., Ph.D. Transplant 10/16/2023 11:00 AM RM [facility] Gastroenterology and Hepatology 11/10/2023 8:00 AM LAB BLOOD [facility] Laboratory Medicine 11/10/2023 3:00 PM Marv Myrick M.D., M.P.H. Gastroenterology and Hepatology For appointment details refer to your Patient Appointment Guide. TEST RESULTS PENDING AT DISCHARGE Pending Labs Order Current Status Bacteria / Neda Culture, Blood # 2 In process Bacteria / Neda Culture, Blood #1 In process DETAILS OF HOSPITAL STAY REASON FOR ADMISSION Colitis HOSPITAL COURSE Mr. Niko Jennings is a 72 y.o. male who underwent an elective open umbilical hernia repair and left inguinal hernia repair on September 04, [address] Gomes. 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 This has decompensated by esophageal varices and ascites. [facility]: Emergency Department Course Presentation: Presented with abdominal pain. Decreased drain output. Vital signs: Hemodynamically stable. Afebrile. Laboratory investigations: HBeAg 12.6, PLT 89, WBC 4.1. Creatinine 0.96 with Na 128 and K 3.4. AST 34 ALT 14, ALP 166 and total bilirubin 1.1. Lactate 5.1 -> 3.0 after volume resuscitation. Other diagnostics: CT chest abdomen pelvis with interval increased colonic wall thickening involving the cecum, ascending colon, and terminal ileum. Presumed postoperative changes of umbilical herniawith mesh. Interventions: 3 L NS and Zosyn. Admission to the liver transplant service for further management and cares. [facility]: Liver Transplant Service On admission, patient is stable at baseline. No localizing signs or symptoms of infection. 1-2 bowel movements per day, Cecil type 4 or 5 without blood. Suspect the ileitis and colitis to be related to his recent surgery, certainly possible this could be an infectious colitis or less likely a drug-induced colitis or inflammatory bowel disease. Conservative management recommended. Recommend repeat CT in 6-8 weeks to document resolution. Sooner if symptoms arise. His drain remains in adequate position. Given ascites on CT, we will keep drain in place until follow-up with Dr. Gomes on 09/17/2023. Patient was discharged in stable condition on 09/10/2023. CONSULTS ORDERED DURING THIS ADMISSION IP CONSULT TO DIETITIAN IP CONSULT TO DIETITIAN Lipase, S Date Value Ref Range Status 09/09/2023 45 13 - 60 U/L Final EXT Amylase, Total, S Date Value Ref Range Status 08/20/2018 80 28 - 100 U/L Final Leukocytes Date Value Ref Range Status 09/09/2023 4.1 3.4 - 9.6 x10(9)/L Final EXT Leukocytes Date Value Ref Range Status 03/10/2022 4.4 (L) 4.5 - 11.0 thou/cu mm Final Erythrocytes Date Value Ref Range Status 09/09/2023 3.99 (L) 4.35 - 5.65 x10(12)/L Final EXT Erythrocytes Date Value Ref Range Status 03/10/2022 3.97 (L) 4.30 - 5.90 mil/cu mm Final Hemoglobin Date Value Ref Range Status 09/09/2023 12.6 (L) 13.2 - 16.6 g/dL Final EXT Hemoglobin Date Value Ref Range Status 03/10/2022 12.5 (L) 13.5 - 17.5 g/dL Final Hemoglobin, Venous, B Date Value Ref Range Status 08/25/2023 11.2 (L) 13.2 - 16.6 g/dL Final EXT Platelet Count Date Value Ref Range Status 03/10/2022 77 (L) 140 - 440 thou/cu mm Final Platelet Count Date Value Ref Range Status 09/09/2023 89 (L) 135 - 317 x10(9)/L Final Aspartate Aminotransferase (AST), S Date Value Ref Range Status 09/09/2023 34 8 - 48 U/L Final EXT Aspartate Aminotransferase, P Date Value Ref Range Status 11/09/2020 42 (H) 0 - 40 U/L Final 06/11/2020 50 (H) 2 - 40 IU/L Final Alanine Aminotransferase (ALT), S Date Value Ref Range Status 09/09/2023 14 7 - 55 U/L Final Bilirubin, Total, S Date Value Ref Range Status 09/09/2023 1.1 0.0 - 1.2 mg/dL Final EXT Bilirubin, Total, S Date Value Ref Range Status 11/09/2020 1.2 0.0 - 1.3 mg/dL Final 06/11/2020 1.4 (H) 0.2 - 1.2 mg/dL Final EXT Alkaline Phosphatase, S Date Value Ref Range Status 11/09/2020 280 (H) 40 - 129 U/L Final 06/11/2020 363 (H) 50 - 136 IU/L Final Alkaline Phosphatase, S Date Value Ref Range Status 09/09/2023 166 (H) 40 - 129 U/L Final BUN (Blood Urea Nitrogen), P Date Value Ref Range Status 09/09/2023 31 (H) 8 - 24 mg/dL Final Creatinine Date Value Ref Range Status 09/09/2023 0.96 0.74 - 1.35 mg/dL Final EXT Creatinine, POCT, B Date Value Ref Range Status 10/30/2022 1.10 0.57 - 1.11 mg/dL Final Comment: Caution: Patients taking Hydroxyurea have falsely increased iStat Creatinine results. Verify creatinine results ordering a Creatinine (35173.2) Glucose, P Date Value Ref Range Status 09/09/2023 132 70 - 140 mg/dL Final Glucose, POCT, B Date Value Ref Range Status 09/04/2023 129 70 - 140 mg/dL Final 08/25/2023 131 70 - 140 mg/dL Final Comment: ----ADDITIONAL INFORMATION---- Performed at the Point of Care INR Date Value Ref Range Status 09/05/2023 1.9 0.9 - 1.1 Final Comment: ----ADDITIONAL INFORMATION---- Standard intensity warfarin therapeutic range: 2.0 to 3.0 High intensity warfarin therapeutic range: 2.5 to 3.5 08/25/2023 1.4 0.9 - 1.1 Final Comment: ----ADDITIONAL INFORMATION---- Standard intensity warfarin therapeutic range: 2.0 to 3.0 High intensity warfarin therapeutic range: 2.5 to 3.5 CONDITION AT DISCHARGE stable Discharge instructions were provided to the patient and caregiver(s). documented in this encounter Medications at Time of Discharge Medication Sig Dispensed Refills Start Date End Date cholecalciferol (VITAMIN D3) 125 mcg (5,000 Unit) tablet Take 125 mcg by mouth daily. empagliflozin (JARDIANCE) 10 mg tablet Take 1 tablet by mouth daily. 12/05/2020 eplerenone (INSPRA) 50 mg tabletIndications:Asci jennifer Chronic Take 2 tablets (100 mg total) by mouth daily. 180 tablet 3 01/12/2023 01/12/2024 ferrous gluconate (FERGON) 324 mg (38 mg iron) tablet Take 324 mg by mouth daily. furosemide (LASIX) 20 mg tablet Take 40 mg by mouth 2 (two) times a day. 07/05/2020 metFORMIN XR (GLUCOPHAGE-XR) 500 mg 24 hr tablet Take 500 mg by mouth 2 (two) times a day. omeprazole (PriLOSEC) [address] capsule Take 20 mg by mouth every morning before breakfast. 07/20/2020 polyethylene glycol (MIRALAX) 17 gram powder packet Take 1 packet (17 g total) by mouth daily. Dissolve each 17 g dose in 240 mLs (8 ounces) of beverage. 20 packet 08/29/2023 rosuvastatin (CRESTOR) 20 mg tablet Take 20 mg by mouth daily. 05/15/2020 sennosides-docusate sodium (SENOKOT-S) 8.6-50 mg per tablet Take 2 tablets by mouth 2 (two) times a day. 30 tablet 08/28/2023 oxyCODONE (ROXICODONE) 5 mg immediate release tabletIndications:Acut e Pain Take 1 tablet (5 mg total) by mouth every 4 (four) hours as needed for pain for up to 3 days Indication: Acute Pain. 18 tablet 09/05/2023 09/10/2023 documented as of this encounter Progress Notes * Yennifer Clifford, Ryan., R.Ph. - 09/10/2023 8:56 AM CDT Images from the original note were not included. Pharmacy Progress Note: Niko Jennings is a 72 y.o.male admitted to the hospital on 09/10/23 for ileitis and colitis on CT Past Medical History: Diagnosis Date Arthritis Rheumatoid (HCC) Cataract Diabetes Mellitus NOS Gastroesophageal Reflux Disease NOS Hyperlipidemia Hypertension NOS Liver Disease Other Specified Health Status Renal Disease Stricture Esophagus Varix Esophageal (HCC) OBJECTIVE Neuro: pain controlled with morphine, fentanyl ID: once Zosyn in ED now stopped GI/Liver: diarrhea yesterday. ID: finished flagyl and levaquin after recent procedure. Home Medications: see med list below ASSESSMENT / PLAN Patient to discharge today. Discussed to not finish one tablet of Flagyl at home. Changes to medications anticipated at discharge: none Yennifer Clifford Pharm.D., R.Ph. Admission Medication History Note Adherence issues: No concerns Medication list source: Patient and Pharmacy or dispense records Medication related information: Endorsed some side effects attributable to Flagyl such as looser stools and change in taste. Patient has 1 tablet left at home, encouraged to not take given course of therapy has been completed. Prior to Admission Medications Med List Status: Pharmacy/RN Complete Set By: Yennifer Clifford, Pharm.D., R.Ph. at 09/10/2023 9:09 AM Taking? Last Dose Informant Start Date End Date LT cholecalciferol (VITAMIN D3) 125 mcg (5,000 Unit) tablet 09/09/2023 Self -- -- Take 125 mcg by mouth daily. empagliflozin (JARDIANCE) 10 mg tablet 09/09/2023 Self 12/05/20 -- Take 1 tablet by mouth daily. eplerenone (INSPRA) 50 mg tablet 09/09/2023 Self 01/12/23 01/12/24 Take 2 tablets (100 mg total) by mouth daily. ferrous gluconate (FERGON) 324 mg (38 mg iron) tablet 09/09/2023 Self -- -- Take 324 mg by mouth daily. furosemide (LASIX) 20 mg tablet 09/09/2023 Self 07/05/20 -- Take 40 mg by mouth 2 (two) times a day. levoFLOXacin (LEVAQUIN) 750 mg tablet () -- -- 08/29/23 09/08/23 Take 1 tablet (750 mg total) by mouth every morning before breakfast for 10 days. metFORMIN XR (GLUCOPHAGE-XR) 500 mg 24 hr tablet 09/09/2023 Self -- -- Take 500 mg by mouth 2 (two) times a day. metroNIDAZOLE (FLAGYL) 500 mg tablet () -- -- 08/28/23 09/08/23 Take 1 tablet (500 mg total) by mouth 3 (three) times a day for 11 days Indications: Blood stream infection. omeprazole (PriLOSEC) [address] capsule 09/09/2023 Self 07/20/20 -- Take 20 mg by mouth every morning before breakfast. oxyCODONE (ROXICODONE) 5 mg immediate release tablet 09/09/2023 -- 09/05/23 09/10/23 Take 1 tablet (5 mg total) by mouth every 4 (four) hours as needed for pain for up to 3 days Indication: Acute Pain. Notes: Takes about twice per day, does note some altered mentation makes goofy polyethylene glycol (MIRALAX) 17 gram powder packet Past Month Self 08/29/23 -- Take 1 packet (17 g total) by mouth daily. Dissolve each 17 g dose in 240 mLs (8 ounces) of beverage. rosuvastatin (CRESTOR) 20 mg tablet 09/09/2023 Self 05/15/20 -- Take 20 mg by mouth daily. sennosides-docusate sodium (SENOKOT-S) 8.6-50 mg per tablet Past Month -- 08/28/23 -- Take 2 tablets by mouth 2 (two) times a day. documented in this encounter H&P Notes * Keny Benz M.D. - 09/10/2023 9:55 AM CDT RST Liver Transplant Admission Note SUBJECTIVE CHIEF COMPLAINT / REASON FOR VISIT Abdominal pain HISTORY OF PRESENT ILLNESS The patient was seen on multidisciplinary transplant team rounds. I agree with the management plansas reviewed with transplant house staff. Mr. Niko Jennings is a 72 y.o. male with underlying cirrhotic stage autoimmune hepatitis who underwent an elective open umbilical hernia repair and left inguinal hernia repair on September 04, [address]Dr[address] Gomes. He presented to the emergency department with concerns about his post surgical drain having reduced output. He was noted to have a lactate of 5.1 which is improved to [address] of the chest suggested some colonic wall thickening but no other acute pathology. In additional fluids he was given IV Zosyn. He has no specific complaints this morning. Review of Systems Pertinent items are noted in HPI; all other review of systems was negative. Medical History I have reviewed and updated the past medical history, surgical history, family history, social history, medications and allergies as appropriate. OBJECTIVE PHYSICAL EXAMINATION General: Appears well Skin: No jaundice Eyes: Anicteric Abdomen: Surgical wounds are dressed and 1 surgical drain is in place with minimal output Neuro: Alert and oriented Psych: Normal mood and affect DIAGNOSTICS I have independently reviewed the diagnostics relevant to this admission. ASSESSMENT / PLAN #1 Cirrhotic stage autoimmune hepatitis #2 Status post umbilical and left inguinal hernia repair September 04, 2023 #3 Ileitis and colitis on CT imaging 09/10/2023 #4 Type 2 diabetes mellitus #5 Hypertension #6 Hyperlipidemia #7 Gastroesophageal reflux disease #8 Dysphagia secondary to esophageal webs status post dilatation No significant acute pathology is noted. His lactate is improved with fluid administration. CT findings are nonspecific. We will advance his diet. He continues to have a small amount of ascites on his imaging. Thus, we will leave his drain in place. He has follow-up with Dr. Gomes arranged for next. At that time we will plan to pull the drain, if clinically indicated. We will plan to dismiss from hospital later today. * Abbie Garza M.D. - 09/10/2023 7:38 AM CDT RST Liver Transplant Admission Note SUBJECTIVE CHIEF COMPLAINT / REASON FOR VISIT Abdominal pain HISTORY OF PRESENT ILLNESS Mr. Niko Jennings is a 72 y.o. male who underwent an elective open umbilical hernia repair and left inguinal hernia repair on September 04, [address] Gomes. 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 This has decompensated by esophageal varices and ascites. [facility]: Emergency Department Course Presentation: Presented with progressive abdominal pain. Vital signs: Hemodynamically stable. Afebrile. Laboratory investigations: HBeAg 12.6, PLT 89, WBC 4.1. Creatinine 0.96 with Na 128 and K 3.4. AST 34 ALT 14, ALP 166 and total bilirubin 1.1. Lactate 5.1 -> 3.0 after volume resuscitation. Other diagnostics: CT chest abdomen pelvis with interval increased colonic wall thickening involving the cecum, ascending colon, and terminal ileum. Presumed postoperative changes of umbilical herniawith mesh. Interventions: 3 L NS and Zosyn. Admission to the liver transplant service for further management and cares. This morning, he feels well without concern. He says his pain has been stable at its baseline. He reports he presented to the emergency department for drain check, as he noticed there was decreased output. No new symptomatology. Intermittent/minimal use of NSAIDs. No localizing signs or symptoms ofinfection. His bowel habits have been fairly regular. 1-2 bowel movements per day Cecil type 4 or5. No blood in the stool. No new nausea or emesis. Review of Systems Pertinent items are noted in HPI; all other review of systems was negative. Medical History I have reviewed and updated the past medical history, surgical history, family history, social history, medications and allergies as appropriate. OBJECTIVE VITAL SIGNS BP 102/63 (Patient Position: Semi-recumbent) Pulse 66 Temp 36.5 ??C (Oral) Resp 18 Ht 172.7cm Wt 57.5 kg SpO2 95% BMI 19.28 kg/m?? PHYSICAL EXAMINATION DIAGNOSTICS I have independently reviewed the diagnostics relevant to this admission. ASSESSMENT / PLAN # Ileitis and colitis on CT imaging 09/10/2023 Etiologies unclear at this juncture. This could be related to a surgery. Differential may also include infectious colitis, drug-induced (NSAIDs). Less likely to be IBD or autoimmune enteropathy givenlack of chronicity or other localizing symptoms. We will continue supportive cares. You will likely necessitate a repeat image in the outpatient setting to document resolution, and if failure to resolve or new symptoms consideration may be given to an endoscopic assessment. # Status post umbilical and left inguinal hernia repair September 04, 2023 Progressing as expected. He continues to have ascites on his imaging. Thus, we will leave his drainin place. He has follow-up with Dr. Gomes arranged for next . At that time we will plan to pull the drain, if clinically indicated. # Type 2 diabetes mellitus # Hypertension # Hyperlipidemia # Gastroesophageal reflux disease # Dysphagia secondary to esophageal webs status post dilatation Chronic issues. Stable. We will plan to dismiss from hospital. No ongoing hospital needs. Follow-up has been arranged. Diet: No diet orders on file Tubes/lines: PIV VTE prophylaxis: SCD's Code status: Full Code Baseline Mobility: BMAT Level 4 (Able to stand and walk) Disposition: Home Abbie Garza M.D. Gastroenterology & Hepatology Fellow Pager #[phone] documented in this encounter Nursing Notes * Maryse Frye R.N. - 09/10/2023 10:56 AM CDT Patient is vitally stable and IV has been removed. Transport taking patient to downstairs for discharge home. * Maryse Frye R.N. - 09/10/2023 10:55 AM CDT Shift Goals: Identify possible barriers to meeting goals/advancing plan of care: none End of Shift Summary: Patient deemed adequate for discharge via service. Please refer to discharge note. Problem: PAIN - ADULT Goal: PT VERBALIZES/DEMONSTRATES ADEQUATE COMFORT LEVEL OR BASELINE Outcome: Completed Problem: KNOWLEDGE DEFICIT Goal: Patient/family/caregiver demonstrates understanding of disease process, treatment plan, medications, and discharge instructions Outcome: Completed Problem: INFECTION - ADULT Goal: Absence of infection during hospitalization Outcome: Completed Problem: SKIN/TISSUE INTEGRITY Goal: Skin/Tissue integrity maintained or improved Outcome: Completed Goal: Oral and Nasal mucous membranes remain intact Outcome: Completed Problem: SAFETY ADULT Goal: Maintain a safe environment Outcome: Completed Problem: DISCHARGE PLANNING Goal: Patient discharge needs identified Outcome: Completed Problem: SAFETY ADULT - RISK FOR FALL AND OR FALL INJURY Goal: Patient remains free from fall/fall injury Outcome: Completed Problem: POTENTIAL OR ACTUAL PRESSURE INJURY-ADULT Goal: Manage sensory Perception deficits to maintain and/or improve skin integrity Outcome: Completed Goal: Maintain optimal skin moisture to ensure or improve skin integrity Outcome: Completed Goal: Achieve optimal activity and/or mobility to maintain or improve skin integrity Outcome: Completed Goal: Nutrient intake appropriate for improving, restoring or maintaining skin integrity Outcome: Completed Goal: Minimize friction and/or shear to maintain or improve skin integrity Outcome: Completed Problem: Compromised Skin Integrity Goal: Skin/Tissue integrity maintained or improved Outcome: Completed Goal: Oral and Nasal mucous membranes remain intact Outcome: Completed Goal: Incisions, wounds, or drain sites healing without S/S of infection Outcome: Completed Problem: Incontinence and/or Moisture Goal: Skin integrity is maintained or improved Outcome: Completed documented in this encounter ED Notes * Sebastián Hilliard R.N. - 09/09/2023 10:54 PM CDT Pt comes in via EMS with abdominal pain and decreased output from drain. Pt had hernia surgery on Thursday. Pt also was recently hospitalized with pneumonia. Per patient drain normally drains about 90-100 every couple of hours but since 2 he has not had any drainage. Pt alert and oriented. Also reports decreased oral intake over last few days as well. Sebastián Hilliard R.N. 09/09/23 2255 * Quentin Saunders M.D. - 09/09/2023 10:52 PM CDT EMERGENCY DEPARTMENT NOTE CHIEF COMPLAINT/REASON FOR VISIT Abdominal Pain and Post-op Problem HISTORY OF PRESENT ILLNESS The patient is a 72 y.o. male with relevant medical history including autoimmune cirrhosis complicated by portal hypertension and ascites, [id number] diabetes, DVT not anticoagulated, rheumatoid arthritis who presents with postoperative problem. The patient underwent open umbilical hernia and left inguinal hernia repair on the 03 of September with an uncomplicated postoperative course. Hepresents today complaining of decreased drain output. He states that recently and throughout the day today his drain has required emptying every few hours, with serosanguineous output. At 4:00 pm, ofthe drain suddenly stopped putting out fluid and he denies any displacement of the tubing. He says that he has not been eating or drinking quite so well, he is lost his appetite and sense of taste. He denies worsening pain and says that his pain feels as he would expect postoperatively. He had a normal bowel movement earlier in the day. He denies fevers and chills. OBJECTIVE DATA Initial Vitals Temperature 09/09/23 2300 36.7 ??C Pulse Rate 09/09/23 2300 72 Heart Rate 09/09/23 2300 72 Resp Rate 09/09/23 2300 18 Blood Pressure 09/09/23 2300 93/66 SpO2 09/09/23 2300 97 % Pain Score 09/09/23 2249 3 Nondistressed, attentive, conversational. Symmetric facial expression. Respirations unlabored. Abdomen soft and diffusely tender without rebound or guarding, left abdominal wall CATHERINE drain putting out scant serosanguineous fluid, multiple abdominal incisions and a left scrotal incision are well approximated with no dehiscence, discharge, fluctuance, or out of proportion tenderness. Mucous membranesare dry. Extremities well perfused, skin warm and dry. ASSESSMENT/PLAN The patient is a 72 y.o. male who presents 5 days after umbilical and inguinal hernia repair with decreased surgical drain output, and decreased oral intake. Vital signs show borderline blood pressures, remainder within normal limits. On exam he is nontoxic appearing with diffuse abdominal tenderness and no peritoneal signs. Differential consideration includes postoperative complication such as early infection, drain displacement or obstruction, dehydration. Patient endorsed some vague cardiopulmonary symptoms which prompted investigation for acute pulmonary embolism, although this was considered less likely and he hadno clinical evidence of a DVT. The patient does not have localizing symptoms for infection, and he does not appear toxic or systemically unwell. A CT scan of the chest and abdomen was obtained that demonstrated nonspecific ileitis and colitis. The case was discussed with liver transplant who agreed with the need for admission given elevated lactate, and unclear etiology of his symptoms. My impression is that these are findings in the setting of volume contraction with limited PO intake. Indeed he does appear little bit dehydrated. He received crystalloid resuscitation with improvement in his lactate, and stabilization of his blood pressures. Patient did not have clinical evidence of an infection or establish a sepsis syndrome. Also noted the patient has recently completed a course of levofloxacin and metronidazole, making infection less likely. We will plan to admit the patient to the liver transplant service with ongoing fluid resuscitation. ED Course as of 09/10/23212 Mamta Sep 10, 2023 021 After completing his 2nd bag of crystalloid, patient had mean arterial pressure of 67. He was reassessed and reports that he is feeling much better now that he has had some fluid, and he denies other complaints. He is mentating clearly. He continues to appear nontoxic and my overall clinical suspicion is for dehydration, not for a developing sepsis syndrome or alternative etiology of hypotension. I will give a dose of piperacillin tazobactam in addition to another bag of crystalloid and expect he will continue to improve. Final Diagnoses: as of 09/10/23212 Colitis Quentin Saunders M.D. Resident 09/10/23 0140 Quentin Saunders M.D. Resident 09/10/23212 documented in this encounter Miscellaneous Notes * Hospital Course - Abbie Garza M.D. - 09/10/2023 9:39 AM CDT Mr. Niko Jennings is a 72 y.o. male who underwent an elective open umbilical hernia repair and left inguinal hernia repair on September 04, [address] Gomes. 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 This has decompensated by esophageal varices and ascites. [facility]: Emergency Department Course Presentation: Presented with abdominal pain. Decreased drain output. Vital signs: Hemodynamically stable. Afebrile. Laboratory investigations: HBeAg 12.6, PLT 89, WBC 4.1. Creatinine 0.96 with Na 128 and K 3.4. AST 34 ALT 14, ALP 166 and total bilirubin 1.1. Lactate 5.1 -> 3.0 after volume resuscitation. Other diagnostics: CT chest abdomen pelvis with interval increased colonic wall thickening involving the cecum, ascending colon, and terminal ileum. Presumed postoperative changes of umbilical herniawith mesh. Interventions: 3 L NS and Zosyn. Admission to the liver transplant service for further management and cares. [facility]: Liver Transplant Service On admission, patient is stable at baseline. No localizing signs or symptoms of infection. 1-2 bowel movements per day, Cecil type 4 or 5 without blood. Suspect the ileitis and colitis to be related to his recent surgery, certainly possible this could be an infectious colitis or less likely a drug-induced colitis or inflammatory bowel disease. Conservative management recommended. Recommend repeat CT in 6-8 weeks to document resolution. Sooner if symptoms arise. His drain remains in adequate position. Given ascites on CT, we will keep drain in place until follow-up with Dr. Gomes on 09/17/2023. Patient was discharged in stable condition on 09/10/2023. documented in this encounter Plan of Treatment Upcoming Encounters Date Type Department Care Team (Latest Contact Info) Description 09/17/2023 10:30 AM CDT [facility] [place], [place] [address] [place] [phone] Elen Gomes M.D., Ph.D. [address] [place] [phone] 10/16/2023 11:00 AM CDT Appointment Division of Gastroenterology in [place], [place] [address] [place] [phone] Marv Myrick M.D., M.P.H. [address] [place] [phone] Discharge Disposition: Home or Self Care 11/10/2023 8:00 AM CDT Appointment Department of Laboratory Medicine and Pathology, [facility] in [place], [place] [address] [place] [phone] Marv Myrick M.D., M.P.H. [address] [place] [phone] 11/10/2023 3:00 PM CDT Office Visit Division of Gastroenterology in [place], [place] [address] [place] [phone] Marv Myrick M.D., M.P.H. [address] [place] [phone] Pending Results Name Type Priority Associated Diagnoses Date /Time Bacteria / Neda Culture, Blood #1 Microbiology STAT 09/09/2023 11: 38 PM CDT Bacteria / Neda Culture, Blood # 2 Microbiology STAT 09/09/2023 11 :47 PM CDT documented as of this encounter Procedures Procedure Name Priority Date/Time Associated Diagnosis [...] CULTURE, BLOOD STAT 09/09/2023 11:38 PM CDT LACTATE, B STAT 09/09/2023 11:01 PM CDT HEPATIC FUNCTION PANEL, S STAT 09/09/2023 11:01 PM CDT CBC WITH DIFFERENTIAL, B STAT 09/09/2023 11:01 PM CDT LIPASE, S/P STAT 09/09/2023 11:01 PM CDT BASIC METABOLIC PANEL, S/P STAT 09/09/2023 11:01 PM CDT documented in this encounter Results * (ABNORMAL) Lactate (09/10/2023 4:10 AM CDT) Pathologist [facility] Lactate, P 3.0(H) 0.5 - 2.2 mmol/L 09/10/2023 4:29 AM CDT STMA Blood 09/10/2023 4:10 AM CDT 09/10/2023 4:15 AM CDT Quentin Saunders M.D. LAB BLOOD NON ADD-ON [facility] [address] [place] [address], [facility] [address] [place] [address] * Influenza A/B, SARS CoV-2, PCR, Rapid Symptomatic (09/10/2023 1:46 AM CDT) Pathologist [facility] Influenza A, PCR, Rapid, V Negative Negative [...] at the following links: For Healthcare Providers: https://www.fda.gov/media/931390/download For Patients: https://www.fda.gov/media/702318/download Infl A/B, SARS CoV-2, PCR, Source Swab, Nasopharynx 09/10/2023 1:52 AM CDT STMA Swab (Nasopharynx) 09/10/2023 1:46 AM CDT 09/10/2023 1:52 AM CDT Quentin Saunders M.D. LAB MICROBIOLOGY - G ENERAL ORDERABLES Performing Organization Address [facility]/ZIP Co de Phone Number [facility] [address] STMA [facility] 200 [place] [address] * (ABNORMAL) Lactate for Sepsis with Reflex, POCT (09/10/2023 1:13 AM CDT) Pathologist [facility] Lactate, POCT 3.01(H) 0.50 - 2.20 mmol/L 09/10/2023 1:22 AM CDT PCLX Blood (Blood, Venous) 09/10/2023 1:13 AM CDT 09/10/2023 1:13 AM CDT Quentin Saunders M.D. LAB POCT ORDERABLES - DEVICE Performing Organization Address City/[facility]/ZIP Co de Phone Number POC [facility] [address] [place] [address], [facility] PCLX [facility] POC 200 [place] [address] * CT Chest Angiogram and Pulmonary Arteries [...] 6. Mild fibrotic interstitial lung disease. Quentin ADAM CT PROCEDURES * CT Abdomen Pelvis with IV Contrast (09/10/2023 12:16 AM CDT) Anatomical Region Laterality Modality Abdomen, Pelvis, Abdominal [...] Quentin Saunders M.D. IMG CT PROCEDURES * Lipase (09/09/2023 11:01 PM CDT) Lipase, S 45 13 - 60 U/L 09/10/2023 12:17 AM CDT DTL Blood (Blood, Venous) 09/09/2023 11:01 PM CDT 09/09/2023 11:24 PM CDT Quentin Saunders M.D. LAB BLOOD ADD-ON [facility] [address] [place] [address], [facility] [address] [place] [address] * (ABNORMAL) Hepatic Function Panel (09/09/2023 11:01 PM CDT) Bilirubin, Total, S 1.1 0.0 - 1.2 [...] M.D. LAB BLOOD ADD-ON Performing Organization Address City/[facility]/ZIP Co de Phone Number [facility] 200 [place] [address], [facility] DTL [facility] [address] [place] [address] * (ABNORMAL) Lactate, B (09/09/2023 11:01 PM CDT) Pathologist [facility] Lactate, B 5.1(H) 0.5 - 2.2 mmol/L 09/09/2023 11:07 PM CDT STMA Blood (Blood, Venous) 09/09/2023 11:01 PM CDT 09/09/2023 11:05 PM CDT Quentin Saunders M.D. LAB BLOOD NON ADD-ON Performing Organization Address [facility] Co de Phone Number [facility] [address] [place] [address], [facility] STMA [facility] [address] [place] [address] * (ABNORMAL) Basic Metabolic Panel (09/09/2023 11:01 PM CDT) Pathologist [facility] Potassium, P 3.4(L) 3.6 - 5.2 mmol/L [...] CDT Quentin Saunders M.D. LAB BLOOD ADD-ON [facility] [address] [place] [address], [facility] [address] [place] [address] * (ABNORMAL) CBC with Differential, Blood (09/09/2023 11:01 PM CDT) Hemoglobin 12.6(L) 13.2 - 16.6 g/dL 09/09/2023 [...] CDT Quentin Saunders M.D. LAB BLOOD ADD-ON [facility] [address] [place] [address], [facility] STMA [facility] [address] [place] [address] DHPM [facility] [address] [place] [address] documented in this encounter Visit Diagnoses Diagnosis Colitis- Primary Colitis Abdominal Pain documented in this encounter Admitting Diagnoses Diagnosis Colitis Abdominal Pain documented in this encounter Administered Medications Inactive Administered Medications - up to 3 most recent administrations Medication Order MAR Action Action Date Dose Rate Site fentaNYL injection 50 mcg (Sublimaze) 50 mcg, intravenous, Every 1 hour PRN, severe pain or score 7-10 of 10, Starting on Thu09/09/23 at 2344, For 3 doses Given 09/09/2023 11:54 PM CDT 50 mcg iopromide 370 mg iodine/mL injection 1-162 mL (Ultravist) 1-162 mL, intravenous, Once in imaging, contrast, Starting on Thu09/09/23 at 2352, For 1 dose, Imaging Protocol Orders, Dose per Radiant Medication Guidelines Given 09/10/2023 12:05 AM CDT 100 mL Lactated Ringer's bolus 1,000 mL 1,000 mL, intravenous, at 1,000 mL/hr, Administer over 1 Hours, Once, On Mamta 09/10/23 at 0109, For 1 dose New Bag 09/10/2023 1:19 AM CDT 1,000 mL 100 0 mL/hr morphine injection 4 mg 4 mg, intravenous, Every 1 hour PRN, severe pain or score 7-10 of 10, Starting on Mamta 09/10/23 at 0211, For 3 doses NaCl 0.9 % bolus 1,000 mL 1,000 mL, intravenous, at 1,000 mL/hr, Administer over 1 Hours, Once, On Thu09/09/23 at 2303, For 1 dose New Bag 09/09/2023 11:05 PM CDT 1,000 mL 1000 mL/hr NaCl 0.9 % bolus 1,000 mL 1,000 mL, intravenous, at 1,000 mL/hr, Administer over 1 Hours, Once, On Mamta 09/10/23 at 0205, For 1 dose New Bag 09/10/2023 2:11 AM CDT 1,000 mL 100 0 mL/hr NaCl 0.9% infusion 75 mL/hr, intravenous, Continuous, Starting on Mamta 09/10/23 at 0219 New Bag 09/10/2023 3:25 AM CDT 75 mL/hr 75 mL/hr ondansetron (PF) injection 4 mg (Zofran) 4 mg, intravenous, Every 4 hours PRN, nausea, vomiting, Starting on Thu09/09/23 at 2344 Given 09/09/2023 11:54 PM CDT 4 mg piperacillin-tazobactam in dextrose (iso osm) IVPB 3.375 g (Zosyn) 3.375 g, intravenous, at 100 mL/hr, Administer over 0.5 Hours, Once, On Mamta 09/10/23 at 0207, For 1 dose, Drug Monitoring Program: Pharmacist to adjust medication dosing based on indication and drug clearance factors., Indications: Intra-abdominal infection, healthcare associated New Bag 09/10/2023 2:11 AM CDT 3.375 g 100 mL/hr sodium chloride (PF) 0.9 % injection 1-100 mL 1-100 mL, intravenous, Once, On Thu09/09/23 at 2353, For 1 dose, Imaging Protocol Orders, Dose per Radiant Medication Guidelines Given 09/10/2023 12:09 AM CDT 30 mL documented in this encounter Active and Recently Administered Medications Times are shown in CDT. Scheduled Medication Order 09/08/2023 09/09/2023 09/10/2023 Lactated Ringer's bolus 1,000 mL (COMPLETED) 1,000 mL, intravenous, at 1,000 mL/hr, Administer over 1 Hours, Once, On Mamta 09/10/23 at 0109, For 1 dose 0119 (New Bag - Provider: Sebastián Hilliard R.N.)0150 (Stopped - Provider: Sebastián Hilliard R.N.) NaCl 0.9 % bolus 1,000 mL (COMPLETED) 1,000 mL, intravenous, at 1,000 mL/hr, Administer over 1 Hours, Once, On Thu09/09/23 at 2303, For 1 dose 2305 (New Bag - Provider: Sebastián Hilliard R.N.) 0009 (Stopped - Provider: Sebastián Hilliard R.N.) NaCl 0.9 % bolus 1,000 mL (COMPLETED) 1,000 mL, intravenous, at 1,000 mL/hr, Administer over 1 Hours, Once, On Mamta 09/10/23 at 0205, For 1 dose 0211 (New Bag - Provider: Sebastián Hilliard R.N.)0325 (Stopped - Provider: Sebastián Hilliard R.N.) piperacillin-tazobactam in dextrose (iso osm) IVPB 3.375 g (Zosyn) (COMPLETED) 3.375 g, intravenous, at 100 mL/hr, Administer over 0.5 Hours, Once, On Mamta 09/10/23 at 0207, For 1 dose, Drug Monitoring Program: Pharmacist to adjust medication dosing based on indication and drug clearance factors., Indications: Intra-abdominal infection, healthcare associated 0211 (New Bag - Provider: Sebastián Hilliard R.N.)0300 (Stopped - Provider: Sebastián Hilliard R.N.) sodium chloride (PF) 0.9 % injection 1-100 mL (COMPLETED) 1-100 mL, intravenous, Once, On Thu09/09/23 at 2353, For 1 dose, Imaging Protocol Orders, Dose per Radiant Medication Guidelines 0009 (Given - Provid er: Lesly Larsen R.N.) Continuous Medication Order 09/08/2023 09/09/2023 09/10/2023 NaCl 0.9% infusion 75 mL/hr, intravenous, Continuous, Starting on Mamta 09/10/23 at 0219 0325 (New Bag - Prov ider: Sebastián Hilliard R.N.)0529 (Continue to Inpatient Floor - Provider: Sebastián Hilliard R.N.)1010 (Stopped - Provider: Maryse Frye R.N.) PRN Medication Order 09/08/2023 09/09/2023 09/10/2023 calcium carbonate chewable tablet 200 mg of calcium (Tums) 200 mg of calcium, oral, Every 4 hours PRN, heartburn, indigestion, for dyspepsia, Starting on Mamta 09/10/23 at 0629, Doses listed are in mg of elemental calcium. Take with food. 500 mg calcium carbonate contains 200 mg of elemental calcium. fentaNYL injection 50 mcg (Sublimaze) 50 mcg, intravenous, Every 1 hour PRN, severe pain or score 7-10 of 10, Starting on Thu09/09/23 at 2344, For 3 doses 2354 (Given - Provider: Sebastián Hilliard R.N.) 0049 (Not Given - Provider: Sebastián Hilliard R.N. - Reason: Other) iopromide 370 mg iodine/mL injection 1-162 mL (Ultravist) (COMPLETED) 1-162 mL, intravenous, Once in imaging, contrast, Starting on Thu09/09/23 at 2352, For 1 dose, Imaging Protocol Orders, Dose per Radiant Medication Guidelines 0005 (Given - Provid er: Lesly Larsen R.N. - Comment: [id number]) morphine injection 4 mg 4 mg, intravenous, Every 1 hour PRN, severe pain or score 7-10 of 10, Starting on Mamta 09/10/23 at 0211, For 3 doses ondansetron (PF) injection 4 mg (Zofran) 4 mg, intravenous, Every 4 hours PRN, nausea, vomiting, Starting on Thu09/09/23 at 2344 2354 (Given - Provider: Sebastián Hilliard R.N.) 0049 (Not Given - Provider: Sebastián Hilliard R.N. - Reason: Other) ondansetron (PF) injection 4 mg (Zofran) 4 mg, intravenous, Every 8 hours PRN, nausea, vomiting, Starting on Mamta 09/10/23 at 0629, If nausea/vomiting does not improve in 30 minutes post ondansetron administration then administer promethazine. Notify service if nausea symptoms persists. promethazine injection 6.25 mg (Phenergan) 6.25 mg, intravenous, Every 6 hours PRN, nausea, vomiting, Starting on Mamta 09/10/23 at 0629, Administer ondansetron prior to promethazine. Do not administer promethazine in the setting of sedation or confusion. documented in this encounter Additional Health Concerns Infection Onset Date Last Indicated Resolved Time COVID19 Pending 09/09/2023 09/10/2023 09/10/2023 2 :15 AM CDT documented as of this encounter Care Teams Medical Underwriter Relationship Specialty Start Date End Date Elsewhere, Pcp PCP - General Internal Medicine 08/19/21 documented as of this encounter
--- OUTSIDE RECORDS SUMMARY | 2023-09-12 06:11 | XMS_ITS | Encounter Summary ---
Author Organization [facility] Address [address] [place] [id number] Care Team Providers Care Channel Supervisor Name Role Phone Elsewhere, Pcp Primary Care Provider Unavailabl e Reason for Referral * Outpatient (Routine) - Closed Specialty Diagnoses / Procedures Referred By Contjovani t Referred To Contact Diagnoses Hydrocele Procedures US Scrotum with Doppler Elen Gomes M.D., Ph.D. [address] [place] [phone] [facility] Referral ID Status Reason Start Date Expiration Date Visits Re quested Visits Authorized [id number] Closed 09/01/2023 08/31/2024 1 1 Encounter Details Date Type Department Care Team (Late st Contact Info) Description 09/01/2023 [facility] [place], [place] [address] [place] [phone] Elen Gomes M.D., Ph.D. [address] [place] [phone] Hydrocele (Primary Dx) Social History Tobacco Use Types Packs/Day Years Used Date Smoking Tobacco: Never Smokeless Tobacco: Never Alcohol Use Standard Drinks/Week Comments Not Currently 0 (1 standard drink = 0.6 oz pur e alcohol) Don? t drink [facility] Utilities Answer Date Recorded In the past 12 months has th e electric, gas, oil, or water company threatened to shut off services in your home? No 08/25/2023 Humiliation, Afraid, Rape, and Kick questionnair e Answer Date Recorded Within the last year, have y ou been afraid of your partner or ex-partner? No 08/25/2023 Within the last year, have y ou been humiliated or emotionally abused in other ways by your partner or ex-partner? No Within the last year, have y ou been kicked, hit, slapped, or otherwise physically hurt by your partner or ex-partner? No 08/25/2023 Within the last year, have y ou been raped or forced to have any kind of sexual activity by your partner or ex-partner? No 08/25/2023 Social Connection and Isolat ion Panel [NHANES] Answer Date Recorded In a typical week, how many times do you talk on the phone with family, friends, or neighbors? More than three times a week 04/27/2022 How often do you get togethe r with friends or relatives? Twice a week 04/27/2022 How often do you attend chur ch or gnosticist services? More than 4 times per year 04/27/2022 Do you belong to any clubs o r organizations such as restorationism groups, unions, fraternal or athletic groups, or [...] and heating? Not hard at all 04/27/2022 [facility] [place] [facility] Occupat ional Health - Occupational Stress [...] the money to buy more. Never true 08/25/19 Within the past 12 months, t he food you bought just didn't last and you didn't have money to get more. Never true 08/25/2023 PRAPARE - Transportation Answer Date Re corded In the past 12 months, has l ack of transportation kept you from medical appointments or from getting medications? No 06/2023 In the past 12 months, has l ack of transportation kept you from meetings, work, or from getting things needed for daily living? No 08/25/2023 Nutrition Answer Date Recorded On average, how [...] have a [facility] [place] place to live 08/25/2023 Education Answer Date Recorded What is the highest level of school you have completed or the highest degree you have received? Bachelor's degree (e.g., BA, AB, BS) 11/11/2020 Sex and Gender Information Value Date Recorded Sex Assigned at Male 02/12/2021 6:18 PM [employer] Gender Identity Male 11/11/2020 11:30 AM CDT Sexual Orientation Straight 11/11/2020 11 :30 AM CDT documented as of this encounter Plan of Treatment Upcoming Encounters Date Type Department Care Team (Latest Contact Info) Description 09/17/2023 10:30 AM CDT Office Visit [facility] Clinical [facility] in [place], [place] [address] [place] [phone] Elen Gomes M.D., Ph.D. [address] [place] [phone] 10/16/2023 11:00 AM CDT Appointment Division of Gastroenterology in [place], [place] [address] [place] [phone] Marv Myrick M.D., M.P.H. [address] [place] [phone] Discharge Disposition: Home or Self Care 11/10/2023 8:00 AM CDT Appointment Department of Laboratory Medicine and Pathology, [facility] in [place], [place] [address] [place] [phone] Marv Myrick M.D., M.P.H. [address] [place] [phone] 11/10/2023 3:00 PM CDT Office Visit Division of Gastroenterology in [place], [place] [address] [place] [phone] Marv Myrick M.D., M.P.H. [address] [place] [phone] documented as of this encounter Results * US Scrotum with Doppler (09/03/2023 1:59 [...] has overall improved. Elen Gomes M.D., Ph.D. IMG US PROCEDU RES documented in this encounter Visit Diagnoses Diagnosis Hydrocele- Primary Hydrocele documented in this encounter Additional Health Concerns Infection Onset Date Last Indicated Resolved Time COVID19 Pending 09/09/2023 09/10/2023 09/10/2023 2 :15 AM CDT documented as of this encounter Care Teams Channel Supervisor Relationship Specialty Start Date End Date Elsewhere, Pcp PCP - General Internal Medicine 08/19/21 documented as of this encounter
--- OUTSIDE RECORDS SUMMARY | 2023-09-12 06:11 | XMS_ITS | Encounter Summary ---
Author Organization [facility] Address [address] [place] [address] Care Team Providers Care Manager [employer] Name Role Phone Elsewhere, Pcp Primary Care Provider Unavailabl e Reason for Visit * Auth/Cert (Routine) Specialty Diagnoses / Procedures Referred By Santi t Referred To Contact Diagnoses Hernia Hernia Inguinal Left Hernia [K46.9]. Procedures REPAIR HERNIA UMBILICAL WITHOUT MESH. REPAIR HERNIA INGUINAL WITH MESH. HYDROCELECTOMY. Referral ID Status Reason Start Date Expiration Date Visits Re quested Visits Authorized [id number] 1 1 Encounter Details Date Type Department Care Team (Latest Contact Info) Description 09/04/2023 8:05 AM CDT - 09/05/2023 12:54 PM CDT Hospital Encounter [facility], Tenth Floor [address] [place] [address] Elen Gomes M.D., Ph.D. [address] [place] [address] Discharge Disposition: Home or Self Care Social History Tobacco Use Types Packs/Day Years Used Date Smoking Tobacco: Never Smokeless Tobacco: Never Alcohol Use Standard Drinks/Week Comments Not Currently 0 (1 standard drink = 0.6 oz pur e alcohol) Don? t drink [facility] Utilities Answer Date Recorded In the past 12 months has th e electric, gas, oil, or water [employer] threatened to shut off services in your [...] often do you attend chur ch or mandaen services? More than 4 times per year 04/27/2022 Do you belong to any clubs o r organizations such as caodaism groups, unions, fraternal or athletic groups, or [...] and heating? Not hard at all 04/27/2022 [facility] [place] of Occupat ional Health - Occupational Stress [...] money to buy more. Never true 08/25/19 24 Within the past 12 months, t [...] your living situation today? I have a [facility] place to live 08/25/2023 Education Answer Date Recorded What is the highest level of school you have completed or the highest degree you have received? Bachelor's degree (e.g., BA, AB, BS) 11/11/2020 Sex and Gender Information Value Date Recorded Sex Assigned at Male 02/12/2021 6:18 PM [employer]GETABLE [employer]PER[employer] Gender Identity Male 11/11/2020 11:30 AM CDT Sexual Orientation Straight 11/11/2020 11 :30 AM CDT documented as of this encounter Last Filed Vital Signs Vital Sign Reading Time Taken Comments Blood Pressure 97/64 09/05/2023 11:35 AM CDT Pulse 68 09/05/2023 11:35 AM CDT Temperature 36.5 ??C (97.7 ??F) 09/05/2023 11:35 AM C DT Respiratory Rate 14 09/05/2023 11:35 AM CDT Oxygen Saturation 95% 09/05/2023 11:35 AM CDT Inhaled Oxygen Concentration - - Weight 60 kg (132 lb 4.4 oz) 09/05/2023 5:20 AM CDT Height 169.5 cm (5' 6.73) 09/04/2023 8:46 AM CD T Body Mass Index 20.88 09/04/2023 8:46 AM CDT documented in this encounter Discharge Summaries * Ti Delvalle M.D., M.S. - 09/05/2023 12:54 PM CDT [facility] DISCHARGE SUMMARY DATE OF ADMISSION: 09/04/2023 DATE OF DISCHARGE: 09/07/23 DISMISSAL DIAGNOSES #1 Hernia Inguinal Left HOSPITAL COURSE Mr. Jennings is a 72 y.o. male with underlying autoimmune cirrhosis and moderate volume ascites who underwent open umbilical hernia repair and left inguinal hernia repair electively on September 04 2023. Please see operative note for full details regarding the procedure. Postoperatively, the patient was admitted overnight for observation. A CATHERINE drain was left in place. Liver function tests were completed on postoperative day 1 - all tests were within normal limits postoperatively. At the time of discharge the patient was ambulating well, and having good PO intake. Pain was fullycontrolled with oral analgesia. The patient was discharged home with an abdominal CATHERINE drain in place. This will be left for 14 days and will be assessed in outpatient clinic. DIAGNOSTIC TESTS Pending Specimens None DISMISSAL MEDICATIONS Discharge Medications TAKE these medications cholecalciferol 125 mcg (5,000 Unit) tablet Commonly known as: VITAMIN D3 Take 125 mcg by mouth daily. empagliflozin 10 mg tablet Commonly known as: JARDIANCE Take 1 tablet by mouth daily. eplerenone 50 mg tablet Commonly known as: INSPRA Take 2 tablets (100 mg total) by mouth daily. ferrous gluconate 324 mg (38 mg iron) tablet Commonly known as: FERGON Take 324 mg by mouth daily. furosemide 20 mg tablet Commonly known as: LASIX Take 40 mg by mouth 2 (two) times a day. levoFLOXacin 750 mg tablet Commonly known as: LEVAQUIN Take 1 tablet (750 mg total) by mouth every morning before breakfast for 10 days. metFORMIN XR 500 mg 24 hr tablet Commonly known as: GLUCOPHAGE-XR Take 500 mg by mouth 2 (two) times a day. metroNIDAZOLE 500 mg tablet Commonly known as: FLAGYL Take 1 tablet (500 mg total) by mouth 3 (three) times a day for 11 days Indications: Blood stream infection. omeprazole [address] capsule Commonly known as: PriLOSEC Take 20 mg by mouth every morning before breakfast. oxyCODONE 5 mg immediate release tablet Commonly known as: ROXICODONE Take 1 tablet (5 mg total) by mouth every 4 (four) hours as needed for pain for up to 3 days Indication: Acute Pain. polyethylene glycol 17 gram powder packet Commonly known as: MIRALAX Take 1 packet (17 g total) by mouth daily. Dissolve each 17 g dose in 240 mLs (8 ounces) of beverage. rosuvastatin 20 mg tablet Commonly known as: CRESTOR Take 20 mg by mouth daily. sennosides-docusate sodium 8.6-50 mg per tablet Commonly known as: SENOKOT-S Take 2 tablets by mouth 2 (two) times a day. DISCHARGE DISPOSITION: Stable and ready for discharge. ACTIVE ISSUES REQUIRING FOLLOW-UP: Patient will be seen in clinic in 2 weeks for drain assessment. He has been provided with dischargeinstructions including no heavy lifting greater than 10 lb for the next 6 weeks. He may wear an abdominal binder and hernia belt/jockstrap as needed. documented in this encounter Discharge Instructions * Attachments The following attachments cannot be sent through Care Everywhere. * Oxycodone, Rapid Release (By mouth) (Liberian) documented in this encounter Medications at Time [...] Indication: Acute Pain. 18 tablet 09/05/2023 09/10/2023 levoFLOXacin (LEVAQUIN) 750 mg tablet Take 1 tablet (750 mg total) by mouth every morning before breakfast for 10 days. 10 tablet 08/29/2023 09/10/2023 metroNIDAZOLE (FLAGYL) 500 mg tabletIndications:Bloo d stream infection Take 1 tablet (500 mg total) by mouth 3 (three) times a day for 11 days Indications: Blood stream infection. 33 tablet 08/28/2023 09/10/2023 documented as of this encounter Progress Notes * Ti Delvalle M.D., M.S. - 09/05/2023 10:50 AM CDT Liver Transplant Recipient Progress Note SUBJECTIVE 72-year-old male with history of autoimmune cirrhosis. No history of liver transplant. Patient has moderate volume ascites requiring 1 previous paracentesis. Symptomatic umbilical hernia as well as left inguinal hernia with communicating hydrocele. Brought forward for elective hernia repairs on September 03. Admitted overnight for observation. This morning patient is doing well. He has tolerating a full oral diet. No nausea. No vomiting. He is ambulating independently. Pain is well controlled with oral analgesia. He denies significant painwithin the abdomen and groin. OBJECTIVE I have reviewed vital signs, which are normal. Abdominal CATHERINE drain: 1.26 L over 24 hours Predominantly serous PHYSICAL EXAM General: Appears well Neuro: Alert and oriented Heart: Sinus rhythm Lung: Breathing comfortably on room air Abdomen: Soft, mildly tender at incisions, nondistended Lines/Drains/Airways Peripheral IV Duration Peripheral IV 09/04/23 20 G Anterior;Left;Lower;Proximal Forearm 1 day Drain Duration Closed/Suction Drain 1 LLQ Bulb 15 Fr. <1 day PLAN #Umbilical Hernia #Inguinal Hernia Doing well. Liver enzymes stable this morning. No signs of decompensation. Pain well controlled. Meeting milestones for discharge. CATHERINE drain should remain in-situ for 14 days.This may be removed in the outpatient clinic. #Acute postoperative pain - Continue as needed Oxycodone DISPOSITION Discharge home today. Discharge instructions have been provided. Patient will have CATHERINE drain in place for 14 days. CATHERINE drain to be removed in clinic with Dr. Gomes in follow-up. Patient agreeable with plan and okay to discharge Multidisciplinary Rounds: Reviewed recommendations of Transplant Surgery, Nursing, Nutrition, Pharmacy, Database Marketing Manager, Case Management and Hospital Coordinator. Electronically signed by: Ti Delvalle M.D., M.S. 09/05/23 10:51 AM CDT * Pari England M.D. - 09/05/2023 10:37 AM CDT LIVER TRANSPLANT INPATIENT SERVICE - PROGRESS NOTE SUBJECTIVE: Patient seen on multidisciplinary transplant team rounds. I agree with the plan as outlined in the team notes. ASSESSMENT / PLAN Postop day 1 hernia repair both inguinal and umbilical. Pain control is adequate he is ambulating and tolerating oral intake. Liver enzymes and function tests are stable (except INR up slightly). Drain will remain in place for 2 weeks. He will follow up as outlined. His problem list and plan per the team notes. Probable discharge from hospital later today * Min Ha Jr., Pharm.DMarcus, R.Ph. - 09/04/2023 8:32 AM CDT Images from the original note were not included. Admission Medication History Note Adherence issues: No concerns Medication list source: Patient and Pharmacy or dispense records Medication related information: Has not taken Miralax and Senokot-S since last Thursday (08/28/23) due to diarrhea On a course of levofloxacin and metronidazole for a blood stream infection for a total of 14 days (continued from previous hospital admission). End date of antibiotics is 09/08/23.. Prior to Admission Medications Med List Status: Pharmacy Complete Set By: Min Ha Jr., PharmSybil, R.Ph. at 09/04/2023 8:32AM Taking? Last Dose Informant Start Date End Date LT cholecalciferol (VITAMIN D3) 125 mcg (5,000 Unit) tablet 09/03/2023 Self -- -- Take 125 mcg by mouth daily. empagliflozin (JARDIANCE) 10 mg tablet 09/03/2023 Self 12/05/20 -- Take 1 tablet by mouth daily. eplerenone (INSPRA) 50 mg tablet 09/03/2023 Self 01/12/23 01/12/24 Take 2 tablets (100 mg total) by mouth daily. ferrous gluconate (FERGON) 324 mg (38 mg iron) tablet 09/03/2023 Self -- -- Take 324 mg by mouth daily. furosemide (LASIX) 20 mg tablet 09/03/2023 at AM Self 07/05/20 -- Take 40 mg by mouth 2 (two) times a day. levoFLOXacin (LEVAQUIN) 750 mg tablet 09/03/2023 -- 08/29/23 09/08/23 Take 1 tablet (750 mg total) by mouth every morning before breakfast for 10 days. metFORMIN XR (GLUCOPHAGE-XR) 500 mg 24 hr tablet 09/03/2023 at PM Self -- -- Take 500 mg by mouth 2 (two) times a day. metroNIDAZOLE (FLAGYL) 500 mg tablet 09/03/2023 -- 08/28/23 09/08/23 Take 1 tablet (500 mg total) by mouth 3 (three) times a day for 11 days Indications: Blood stream infection. omeprazole (PriLOSEC) [address] capsule 09/03/2023 at AM Self 07/20/20 -- Take 20 mg by mouth every morning before breakfast. polyethylene glycol (MIRALAX) 17 gram powder packet 08/28/2023 Self 08/29/23 -- Take 1 packet (17 g total) by mouth daily. Dissolve each 17 g dose in 240 mLs (8 ounces) of beverage. rosuvastatin (CRESTOR) 20 mg tablet 09/02/2023 Self 05/15/20 -- Take 20 mg by mouth daily. sennosides-docusate sodium (SENOKOT-S) 8.6-50 mg per tablet 08/28/2023 -- 08/28/23 -- Take 2 tablets by mouth 2 (two) times a day. documented in this encounter OR Notes * Op Note - Elen Gomes M.D., Ph.D. - 09/04/2023 4:06 PM CDT PRE-OPERATIVE DIAGNOSIS Umbilical hernia (2 x 2 cm., initial and reducible). Left inguinal hernia (initial and reducible). Left hydrocele. POST-OPERATIVE DIAGNOSIS Umbilical hernia. Left inguinal hernia. Left hydrocele. INDICATIONS: Treatment. PROCEDURE: Primary umbilical hernia repair with placement of an intraabdominal drain. Left primary inguinal hernia repair. Hydrocelectomy. REHAB ASSISTANT: Leda Brandt M.D., Ph.D. A first coat operator actively participated and was necessary for one or more of the following: opening, exposure and visualization during the case, maintaining hemostasis, wound closure resulting in itssafe and expeditious completion. OPERATIVE NOTE NARRATIVE After correct identification, Mr. Jennings was brought to the operating room. Under general anesthesia, his abdomen was prepped and draped in the usual sterile fashion. A left inguinal incision was made. Dissection was carried towards the external oblique. External oblique was opened sharply. The cord structures and the hernia sac were freed from the underlying floor and looped. There was clearly aconnection between the peritoneum and the sac in the scrotum. This was divided and the peritoneum closed with a 3-0 Vicryl suture. The defect was small enough that we thought that a tissue repair would be sufficient. This was done with 2-0 Vicryl sutures. At the same time, Dr. Tolliver and his team scrubbed in. They performed a hydrocelectomy. With their help, we were able to find the distal end of the hernia sac which we closed with 2-[address] Tolliver and his team completed the hydrocelectomy, we proceeded with closing the external oblique with 2-0 Vicryl and skin with3-0 running Monocryl. Attention was turned to the umbilicus. A supraumbilical incision was made. The hernia defect was rather small. We had to make it a little bit bigger to be able to place a drain due to ascites. Initially, a small incision was made in the right upper quadrant. However, this bledquite a bit and therefore I thought the best option was to control this bleeding with a nylon suture. This was done. Another spot on the left upper quadrant was then found and a 15-[place] Islander CATHERINE was inserted through that. The tip was laid in the pelvis. The hernia defect was closed with #1 PDS suture. The skin site was closed with 4-0 running Monocryl. Patient tolerated the procedure well and was taken to the recovery unit in stable condition. TPR: 2 Elen Gomes M.D., Ph.D. CT CT Job ID: [id number] * Op Note - Rickie Tolliver M.D. - 09/04/2023 1:28 PM CDT Pre-op Diagnosis Hernia; hydrocele (communicating; left) Post-op Diagnosis Hernia; hydrocele (communicating; left) Services Rep A first coat operator actively participated and was necessary for one or more of the following: opening, exposure and visualization during the case, maintaining hemostasis, wound closure resulting in itssafe and expeditious completion. Findings 1. Communicating left hydrocele identified. Tunica vaginalis opened an evacuation of a small physiologic non-communicating hydrocele as well. Edges of the tunica vaginalis cauterized and oversewn. Complications None Operative Note Narrative Prior to the procedure, the patient was counseled on risks benefits and alternatives of hydrocelectomy including risks of persistent recurrent swelling, injury to the testicle and testicular blood supply, hematoma, acute and chronic pain, and anesthesia related complications. We are called to the operating room once the patient had been prepped and draped and an inguinal incision had been developed. Dr. Gomes's team had identified the spermatic cord as well as a connection with the peritoneal space likely representing the processes vaginalis and patency of the communicating hydrocele sac. At this point we marked out an incision which was about 4 cm long centered around the inguinal scrotal junction on the left side obliquely. The incision was made sharply we dissected down through the subcutaneous tissues. The patient did have some parasitic vessels in the settingof his known liver disease. He had quite a bit of subcutaneous edema as well. We identified what was likely the communicating hydrocele sac and opened this. We then could readily visualize the spermatic cord and surrounding structures and then we could identify the tunica vaginalis surrounding the testicle proper and open this and evacuated a small amount of fluid. When I placed my finger along the cord extending cephalad, I could identify a small patent processes. Dr. Gomes's team oversewed this from above. We then oversewed the edges of the tunica vaginalis and the hydrocele sac themselves for hemostasis. This was with 3-0 Vicryl. We then replaced the spermatic cord and testicle within the left hemiscrotum. Local anesthetic was administered as a spermatic cord block. [place] was closed in two layers with 3-0 Vicryl and the skin with 4-0 chromic in a running horizontal mattress fashion followed by Dermabond glue. We recommend fluff gauze and scrotal supporter. To the patient's subcutaneous edema, we did not feel that a compressive scrotal wrap would remain intact after the procedurefor any significant length of time and as such we held off on the scrotal wrap. Stefan Tolliver M.D. * Brief Op Note - Leda Brandt M.D., Ph.D. - 09/04/2023 1:28 PM CDT Pre-op Diagnosis Hernia Post-op Diagnosis Hernia Procedure: 1. Left inguinal hernia repair without mesh 2. Left hydrocele repair 3. Umbilical hernia repair without mesh Findings Moderate amounts of ascites encountered Bleeding from initial right-sided drain insertion. Repaired with a silk suture. Suture we will require removal in 5 days Estimated blood loss less than 20 cc One abdominal drain in place Complications None Leda Brandt M.D., Ph.D. documented in this encounter Plan of Treatment Upcoming Encounters Date Type Department Care Team (Latest Contact Info) Description 09/17/2023 10:30 AM CDT Office Visit [facility] for Transplantation and Clinical Regeneration in [place], [place] [address] [place] [phone] Elen Gomes M.D., Ph.D. [address] [place] [phone] 10/16/2023 11:00 AM CDT Appointment Division of Gastroenterology in [place], [place] [address] [place] [phone] Marv Myrick M.D., M.P.H. [address] [place] [phone] Discharge Disposition: Home or Self Care 11/10/2023 8:00 AM CDT Appointment Department of Laboratory Medicine and Pathology, [facility] in [place], [place] [address] [place] [address] Marv Myrick M.D., M.P.H. [address] [place] [phone] 11/10/2023 3:00 PM CDT Office Visit Division of Gastroenterology in [place], [place] [address] [place] [phone] Marv Myrick M.D., M.P.H. [address] [place] [phone] documented as of this encounter Procedures Procedure Name Priority Date/Time Associated Diagnosis Comments HEPATIC FUNCTION PANEL, S Routine 09/05/2023 9:36 AM CDT PROTHROMBIN TIME (PT), P Routine 09/05/2023 9:36 AM CDT CBC WITHOUT DIFFERENTIAL, B Routine 09/05/2023 6:50 AM CDT BASIC METABOLIC PANEL, S/P Routine 09/05/2023 6:50 AM CDT GLUCOSE POCT, B Routine 09/04/2023 3:30 PM CDT ADULT OXYGEN THERAPY Routine 09/04/2023 2:54 PM CDT HYDROCELECTOMY 09/04/2023 12:40 PM CDT Hernia REPAIR HERNIA UMBILICAL WITHOUT MESH 09/04/2023 12:40 PM CDT Hernia GLUCOSE POCT, B Routine 09/04/2023 12:25 PM CDT GLUCOSE POCT, B Routine 09/04/2023 8:49 AM CDT HEMOGLOBIN A1C, B Routine 09/04/2023 8:3 6 AM CDT documented in this encounter Results * (ABNORMAL) Prothrombin Time (PT) (09/05/2023 9:36 AM CDT) Prothrombin Time, P 20.7(H) 9.4 - 12.5 sec 09/05/2023 10:30 AM CDT DTL INR 1.9 0.9 - 1.1 09/05/2023 10:30 AM CDT DTL Comment: ----ADDITIONAL INFORMATION---- Standard intensity warfarin therapeutic range: 2.0 to 3.0 ?? High intensity warfarin therapeutic range: 2.5 to 3.5 Blood (Blood, Venous) 09/05/2023 9:36 AM CDT 09/05/2023 9:51 AM CDT Ti Delvalle M.D., M.S. LAB BLOOD ADD-ON [facility] [place] [address] [place] [address], [facility] [address] [address] * (ABNORMAL) Hepatic Function Panel (09/05/2023 9:36 AM CDT) Bilirubin, Total, S 0.8 0.0 - 1.2 mg/dL 09/05/2023 10:33 AM CDT DTL Bilirubin, Direct, S 0.4(H) 0.0 - 0.3 mg/dL 09/05/2023 10:33 AM CDT DTL Aspartate Aminotransferase (AST), S 31 8 - 48 U/L 09/05/2023 10:33 AM CDT DTL Alanine Aminotransferase (ALT), S 15 7 - 55 U/L 09/05/2023 10:33 AM CDT DTL Alkaline Phosphatase, S 156(H) 40 - 129 U/L 09/05/2023 10:33 AM CDT DTL Albumin, S 3.2(L) 3.5 - 5.0 g/dL 09/05/2023 10:33 AM CDT DTL Protein, Total, S 6.6 6.3 - 7.9 g/dL 09/05/2023 10:33 AM CDT DTL Blood (Blood, Venous) 09/05/2023 9:36 AM CDT 09/05/2023 10:15 AM CDT Ti Delvalle M.D., M.S. LAB BLOOD ADD-ON [facility] [place] [address] [place], [place] [address] [address] [place] [address] * (ABNORMAL) CBC without Differential (09/05/2023 6:50 AM CDT) Hemoglobin 9.7(L) 13.2 - 16.6 g/dL 09/05/2023 [...] Leda Brandt M.D., Ph.D. LAB BLOOD ADD-ON [facility] [place] [address] [place] [address], [facility] [address] [place] [address] * (ABNORMAL) Basic Metabolic Panel (09/05/2023 6:50 AM CDT) Potassium, S 4.1 3.6 - 5.2 mmol/L 09/05/2023 7:50 AM CDT DTL Sodium, S 132(L) 135 - 145 mmol/L 09/05/2023 7:50 AM CDT DTL Chloride, S 104 98 - 107 mmol/L 09/05/2023 7:50 AM CDT DTL Bicarbonate, S 18(L) 22 - 29 mmol/L 09/05/2023 7:50 AM CDT DTL Anion Gap 10 7 - 15 09/05/2023 7:50 AM CDT DTL BUN (Blood Urea Nitrogen), S 20 8 - 24 mg/dL 09/05/2023 7:50 AM CDT DTL Creatinine 0.94 0.74 - 1.35 mg/dL 09/05/2023 7:50 AM CDT DTL Estimated GFR (eGFR) 85 >=60 mL/min/BSA 09/05/2023 7:50 AM CDT DTL Comment: Estimated GFR calculated using the 2020 CKD_EPI creatinine equation. Calcium, Total, S 8.8 8.8 - 10.2 mg/dL 09/05/2023 7:50 AM CDT DTL Glucose, S 204(H) 70 - 140 mg/dL 09/05/2023 7:50 AM CDT DTL Blood (Blood, Venous) 09/05/2023 6:50 AM CDT 09/05/2023 7:24 AM CDT Leda Brandt M.D., Ph.D. LAB BLOOD ADD-ON [facility] [address] [place] [address], [facility] [address] [place] [address] * Glucose, POCT (09/04/2023 3:30 PM CDT) Glucose, POCT, B 129 70 - 140 mg/dL 09/04/2023 5:25 PM CDT PCDE Site Capillary 09/04/2023 5:25 PM CDT PCDE Blood 09/04/2023 3:30 PM CDT 09/04/2023 5:25 PM CDT Unknown Provider LAB POCT ORDERABLES- MANUAL Performing Organization Address [facility] Co de Phone Number POC [facility] [address] [place] [address], [facility] PCDE [facility] [address] [place] [address] * Glucose, POCT (09/04/2023 12:25 PM CDT) Glucose, POCT, B 103 70 - 140 mg/dL 09/04/2023 12:27 PM CDT PCDE Site Capillary 09/04/2023 12:27 PM CDT PCDE Blood 09/04/2023 12:2 5 PM CDT 09/04/2023 12:27 PM CDT Unknown Provider LAB POCT ORDERABLES- MANUAL Performing Organization Address [facility] Co de Phone Number [facility]OC [facility] [address] [place] [address], [facility] PCDE [facility] POC [address] [place] [address] * Glucose, POCT (09/04/2023 8:49 AM CDT) Glucose, POCT, B 111 70 - 140 mg/dL 09/04/2023 8:50 AM CDT PCDE Last Intake 3-4 hours 09/04/2023 8:50 AM CDT PCDE Blood 09/04/2023 8:49 AM CDT 09/04/2023 8:50 AM CDT Unknown Provider LAB POCT ORDERABLES- MANUAL Performing Organization Address City/[facility]/ZIP Co de Phone Number POC [facility] [address] [place] [address], [facility] PCDE [facility] [address] [place] [address] * (ABNORMAL) Hemoglobin A1c (09/04/2023 8:36 AM CDT) Hemoglobin A1c, B 6.0(H) 4.0 - 5.6 % 09/04/2023 9:42 AM CDT DTL Comment: Hemoglobin A1c values of 5.7-6.4 percent indicate an increased risk for developing diabetes mellitus. In diabetic patients, HbA1c goals should be discussed with healthcare provider. Blood (Blood, Venous) 09/04/2023 8:36 AM CDT 09/04/2023 8:51 AM CDT eLda Brandt M.D., Ph.D. LAB BLOOD ADD-ON [facility] [place] [address] [place] [address], [facility] [address] [place] [address] documented in this encounter Visit Diagnoses Diagnosis Hernia Inguinal Left- Primary documented in this encounter Admitting Diagnoses Diagnosis Hernia Inguinal Left documented in this encounter Administered Medications Inactive Administered Medications - up to 3 most recent administrations Medication Order MAR Action Action Date Dose Rate Site albumin human 25 % injection 50 g 50 g, intravenous, Once, On Thu09/05/23 at 0130, For 1 dose, If no infusion rate specified: Administer the 25% solution at 100 mL/hr New Bag 09/05/2023 1:13 AM CDT 50 g fentaNYL injection 25 mcg (SUBLIMAZE) 25 mcg, intravenous, Every 2 min PRN, For pain 4 or greater (maximum 100 mcg). If max dose of Fentanyl is reached and if pain is greater than 4, discontinue Fentanyl: give Hydromorphone, Starting on Thu09/04/23 at 1454, PACU (only) Given 09/04/2023 3:27 PM CDT 25 mcg furosemide tablet 40 mg (LASIX) 40 mg, oral, 2 times daily, First dose on Thu09/04/23 at 2100 Given 09/05/2023 9:42 AM CDT 40 mg Given 09/04/2023 8:09 PM CDT 40 mg ketamine injection 10 mg (KETALAR) 10 mg, intravenous, Once as needed, Refractory moderate pain or score 4-6 of 10, Refractory severe pain score 7-10 of 10 after fentanyl or hydromorphone administration, Pain sedation mismatch AND RASS less than -1, Starting on Thu09/04/23 at 1454, For 1 dose, PACU (only) Given 09/04/2023 3:50 PM CDT 10 mg Lactated Ringer's 20 mL/hr, intravenous, Continuous, Starting on Thu09/04/23 at 1500, PACU & Post-Op Continued from OR 09/04/2023 3:23 PM CDT 20 mL/hr 20 mL/hr levoFLOXacin tablet 750 mg (LEVAQUIN) 750 mg, oral, Daily before breakfast, First dose on 09/05/23 at 0700, For 4 days, Take 2 hours before or 6 hours after antacids containing magnesium or aluminum, sucralfate, didanosine, polymeric phosphate binders, or products containing calcium, iron, or zinc., Drug Monitoring Program: Pharmacist to adjust medication dosing based on indication and drug clearance factors., Indications: Intra-abdominal infection, healthcare associated Given 09/05/2023 5:30 AM CDT 750 mg metroNIDAZOLE tablet 500 mg (FLAGYL) 500 mg, oral, 3 times daily, First dose on Thu09/04/23 at 2100, For 5 days, Indications: Blood stream infection Given 09/05/2023 9:42 AM CDT 500 mg Given 09/04/2023 8:08 PM CDT 500 mg oxyCODONE IR tablet 10 mg (ROXICODONE) 10 mg, oral, Once as needed, For pain 4 or greater, Starting on Thu09/04/23 at 1454, For 1 dose, PACU (only) Given 09/04/2023 3:01 PM CDT 10 mg oxyCODONE IR tablet 10 mg (ROXICODONE) 10 mg, oral, Every 4 hours PRN, severe pain or score 7-10 of 10, Starting on Thu09/04/23 at 1724 oxyCODONE IR tablet 5 mg (ROXICODONE) 5 mg, oral, Every 4 hours PRN, moderate pain or score 4-6 of 10, Starting on Thu09/04/23 at 1724 Given 09/05/2023 12:21 PM CDT 5 mg Given 09/05/2023 5:30 AM CDT 5 mg Given 09/05/2023 12:47 AM CDT [address] tablet 40 mg (PROTONIX) 40 mg, oral, Daily before breakfast, First dose on 09/05/23 at 0700, pantoprazole 40 mg oral daily was interchanged for omeprazole 20 or 40 mg oral daily Swallow whole. Do NOT crush, chew, or split tablet. Given 09/05/2023 5:29 AM CDT 40 mg sennosides-docusate sodium 8.6-50 mg per tablet 1 tablet (SENOKOT-S) 1 tablet, oral, 2 times daily, First dose on Thu09/04/23 at 2100, for constipation Given 09/05/2023 9:42 AM CDT 1 t ablet Given 09/04/2023 8:09 PM CDT 1 tablet documented in this encounter Active and Recently Administered Medications Times are shown in CDT. Scheduled Medication Order 09/03/2023 09/04/2023 09/05/2023 albumin human 25 % injection 50 g (COMPLETED) 50 g, intravenous, Once, On 09/05/23 at 0130, For 1 dose, If no infusion rate specified: Administer the 25% solution at 100 mL/hr 0113 (New Bag - Provider: Rola Brown, R.N.) ceFAZolin injection 2,000 mg (ANCEF) (COMPLETED) 2,000 mg (rounded from 1,717.5 mg = 25 mg/kg ? 68.7 kg), intravenous, Once, On Thu09/04/23 at 1315, For 1 dose, Intra-Op, Preoperatively within 1 hour prior to surgical incision If needed, reconstitute vial per package insert instructions. See IVAG for administration guidelines., Drug Monitoring Program: Pharmacist to adjust medication dosing based on indication and drug clearance factors., Indications: Prophylaxis, surgical 1325 (Given - Provider: Thai Cameron APRN, SAND SHOVELER) furosemide tablet 40 mg (LASIX) 40 mg, oral, 2 times daily, First dose on Thu09/04/23 at 2100 2008 (Given - Provider: Rola Brown, R.N.) 0942 (Given - Provider: Jasmyn Villeda RMarcusN.) levoFLOXacin tablet 750 mg (LEVAQUIN) 750 mg, oral, Daily before breakfast, First dose on Thu09/05/23 at 0700, For 4 days, Take 2 hours before or 6 hours after antacids containing magnesium or aluminum, sucralfate, didanosine, polymeric phosphate binders, or products containing calcium, iron, or zinc., Drug Monitoring Program: Pharmacist to adjust medication dosing based on indication and drug clearance factors., Indications: Intra-abdominal infection, healthcare associated 0530 (Given - Provid er: Rola Brown R.N.) metroNIDAZOLE tablet 500 mg (FLAGYL) 500 mg, oral, 3 times daily, First dose on Thu09/04/23 at 2100, For 5 days, Indications: Blood stream infection 2007 (Given - Provider: Rola Brown R.N.) 0942 (Given - Provider: Jasmyn Villeda R.N.) pantoprazole DR tablet 40 mg (PROTONIX) 40 mg, oral, Daily before breakfast, First dose on Thu09/05/23 at 0700, pantoprazole 40 mg oral daily was interchanged for omeprazole 20 or 40 mg oral daily Swallow whole. Do NOT crush, chew, or split tablet. 0529 (Given - Provid er: Rola Brown R.N.) sennosides-docusate sodium 8.6-50 mg per tablet 1 tablet (SENOKOT-S) 1 tablet, oral, 2 times daily, First dose on Thu09/04/23 at 2100, for constipation 2008 (Given - Provider: Rola Brown R.N.) 0942 (Given - Provider: Jasmyn Villeda R.N.) Continuous Medication Order 09/03/2023 09/04/2023 09/05/2023 Lactated Ringer's (CANCELED) 20 mL/hr, intravenous, Continuous, Starting on Thu09/04/23 at 1500, PACU & Post-Op 1523 (Continued from OR - Provider: Ron Lewis R.N.)1999 (Stopped - Provider: Rola Brown R.N.) PRN Medication Order 09/03/2023 09/04/2023 09/05/2023 BUPivacaine liposome (PF) 20 mL, BUPivacaine 30 mL 50 mL injection (CANCELED) As needed, Starting on Thu09/04/23 at 1432, Intra-Op 1432 (Given - Provider: Leda Brandt M.D., Ph.D.) fentaNYL injection 25 mcg (SUBLIMAZE) (CANCELED) 25 mcg, intravenous, Every 2 min PRN, For pain 4 or greater (maximum 100 mcg). If max dose of Fentanyl is reached and if pain is greater than 4, discontinue Fentanyl: give Hydromorphone, Starting on Thu09/04/23 at 1454, PACU (only) 1527 (Given - Provider: Ron Lewis R.N.) ketamine injection 10 mg (KETALAR) (COMPLETED) 10 mg, intravenous, Once as needed, Refractory moderate pain or score 4-6 of 10, Refractory severe pain score 7-10 of 10 after fentanyl or hydromorphone administration, Pain sedation mismatch AND RASS less than -1, Starting on Thu09/04/23 at 1454, For 1 dose, PACU (only) 1550 (Given - Provider: Ron Lewis R.N.) naloxone injection 0.2 mg (NARCAN) 0.2 mg, intravenous, As needed, respiratory depression, Starting on Thu09/04/23 at 1724, For RASS Score -4 or less, respiratory rate of less than 8 breaths/min. Notify provider/service and rapid response team (if available at institution). ondansetron (PF) injection 4 mg (ZOFRAN) 4 mg, intravenous, Every 6 hours PRN, nausea, vomiting, Starting on Thu09/04/23 at 1724, For 48 hours, Reassess for nausea or vomiting after at least 10 minutes. If nausea or vomiting persists administer next ordered antiemetic medications (order for antiemetic medication administration ondansetron then haloperidol then prochlorperazine). oxyCODONE IR tablet 10 mg (ROXICODONE) (COMPLETED) 10 mg, oral, Once as needed, For pain 4 or greater, Starting on Thu09/04/23 at 1454, For 1 dose, PACU (only) 1501 (Given - Provider: Ron Lewis R.N.) oxyCODONE IR tablet 10 mg (ROXICODONE)(Linked Group 1) 10 mg, oral, Every 4 hours PRN, severe pain or score 7-10 of 10, Starting on Thu09/04/23 at 1724 1901 (See Alternative - Provider: Vahid Garcia R.N.) 0047 (See Alternative - Provider: Rola Brown R.N.)0530 (See Alternative - Provider: Rola Brown R.N.)1221 (See Alternative - Provider: Jasmyn Villeda R.N.) oxyCODONE IR tablet 5 mg (ROXICODONE)(Linked Group 1) 5 mg, oral, Every 4 hours PRN, moderate pain or score 4-6 of 10, Starting on Thu09/04/23 at 1724 1901 (Given - Provider: Vahid Garcia R.N.) 0047 (Given - Provider: Rola Brown R.N.)0530 (Given - Provider: Rola Brown R.N.)1221 (Given - Provider: Jasmyn Villeda R.N.) polyethylene glycol powder packet 1 packet (MIRALAX) 1 packet, oral, Daily PRN, constipation, Starting on Thu09/04/23 at 1724, Ordered sequence of administration: polyethylene glycol, then bisacodyl until BM achieved. Avoid mixing with starch-based thickened liquids., Indications: constipation prochlorperazine injection 5 mg (COMPAZINE) 5 mg, intravenous, Every 6 hours PRN, nausea, vomiting, Starting on Thu09/04/23 at 1724, For 48 hours, RASS must be -2 or higher to administer. Reassess for nausea/vomiting after at least 10 minutes. If nausea or vomiting persists administer next ordered antiemetic medications (order for antiemetic medication administration ondansetron then haloperidol then prochlorperazine) Linked Groups Order Group 1: oxyCODONE IR tablet 5 mg (ROXICODONE)Jump to med 5 mg, oral, Every 4 hours PRN, moderate pain or score 4-6 of 10, Starting on Thu09/04/23 at 1724 Or oxyCODONE IR tablet 10 mg (ROXICODONE)Jump to med 10 mg, oral, Every 4 hours PRN, severe pain or score 7-10 of 10, Starting on Thu09/04/23 at 1724 documented in this encounter Care Teams Manager Army Relationship Specialty Start Date End Date Elsewhere, Pcp PCP - General Internal Medicine 08/19/21 documented as of this encounter
--- OUTSIDE RECORDS SUMMARY | 2023-09-12 06:11 | XMS_ITS | Encounter Summary ---
Author Organization [facility] Address [address] [place] [address] Care Team Providers Care Hemming And Tacking Machine Operator Name Role Phone Elsewhere, Pcp Primary Care Provider Unavailabl e Reason for Visit * Auth/Cert (Routine) Specialty Diagnoses / Procedures Referred By Santi t Referred To Contact Diagnoses Hernia Hernia Inguinal Left Hernia [K46.9]. Procedures REPAIR HERNIA UMBILICAL WITHOUT MESH. REPAIR HERNIA INGUINAL WITH MESH. HYDROCELECTOMY. Referral ID Status Reason Start Date Expiration Date Visits Re quested Visits Authorized [id number] 1 1 Encounter Details Date Type Department Care Team (Late st Contact Info) Description 09/04/2023 1:00 PM CDT Anesthesia Event [facility] [address] [place] [address] Abner Cohen M.D. [address] [place] [address] Anesthesia Record Procedure Summary Procedure Name Responsible Anesthesiologist Anesthesia Start Time Anesthesia Stop Time REPAIR HERNIA UMBILICAL WITHOUT MESH. Abner Cohen M.D. 09/04/23 1300 09/04/23 1453 Events Date Time Event Comment 09/04/2023 1300 An Start Machine/Equipme nt Checked Infection Precautions Followed Procedure/Site Verified NPO Status Verified Supine Standard ASA Monitors Applied 1311 An Induction 1315 An Intubation 1319 Turnover to Proceduralist 1325 Anes CS Handoff I, Ivy Shahid, ROAD CONDUCTOR, MICROCOMPUTER SUPPORT SPECIALIST, MNA, attest that I have reconciled the controlled substances and that I have reviewed all the significant information with the next anesthesia provider assuming care of this patient. 1328 Proc Start 1350 Anes CS Handoff I, Thai Correa tt, ROAD CONDUCTOR, MICROCOMPUTER SUPPORT SPECIALIST, attest that I have reconciled the controlled substances and that I have reviewed all the significant information with the next anesthesia provider assuming care of this patient. 1438 Proc Fin 1439 Turnover to ANE Staff 1443 Airway Removal Criteria Met 1443 Extubation/Airway Removed 1445 an stop data 1453 An End I completed my handoff to the receiving staff during which we 1. Identified the patient 2. Identified the responsible provider 3. Reviewed the pertinent medical history 4. Discussed the surgical course 5. Reviewed intra-op anesthesia management and issues during anesthesia 6. Set expectations for post-procedure period 7. Allowed opportunity for questions and acknowledgement of understanding. Meds Name Total fentanyl injection 50 mcg/mL 100 mcg lidocaine 2% (mg) injection 250 mg rocuronium 10 mg/mL injection 70 mg phenylephrine 100 mcg/mL injection 100 m cg ePHEDrine PF 5 mg/mL syringe injection 1 0 mg ondansetron 4 mg/2 mL injection 4 mg sugammadex 100 mg/mL injection 120 mg dexAMETHasone (DECADRON) injection 4 mg/ mL 4 mg ceFAZolin injection 2,000 mg (ANCEF) 2 g Lactated Ringers Free Drip 900 mL * Agents No agents on file. * Blood No blood administrations on file. Lines, Drains, and Airways Type Details Placement Removal Wound 09/04/23; 1338; N; Incision; Umbilicus 09/04/23 1338 by Arlene Dumont, RMarcusNMarcus Wound 09/04/23; 1338; N; Incision; Scrotum 09/04/23 1338 by Arlene Dumont R.N. Wound 09/04/23; 1342; N; Incision; Thigh; Anterior, Left, Proximal 09/04/23 1342 by Arlene Dumont, RMarcusNMarcus Closed/Suction Drain 09/04/23; 1424; 1; LLQ; Bulb; 15 Fr. 09/04/23 1424 by Arlene Dumont R.N. Peripheral IV Placement Date: 09/04/23; Placement Time: 08; Change Due: 09/11/23; Catheter Size: 20 G; Orientation: Anterior, Left, Lower, Proximal; Location: Forearm; Site Prep: Chlorhexidine (Preferred); Technique: Anatomical landmarks; Inserted by: pamela; Insertion Attempts: 1; Removal Date: 09/05/23; Removal Time: 1138 09/04/23 0838 by John Avila 09/05/23 1138 by Anita Cheek RKlever ETT Placement Date: 09/04/23; Placement Time: 1315 (created via procedure documentation); Mask Ventilation: Not attempted; Technique: Video laryngoscopy; Type: Standard ETT; Single Lumen Tube Size: 7.5 mm; Cuffed: Yes; Location: Oral; Grade View: Grade 1; Insertion Attempts: 1; Placement Verification: Bilateral breath sounds, Positive ETCO2, Symmetrical chest wall movement; Airway Comment: Uncomplicated RSI; Removal Date: 09/04/23; Removal Time: 1443 09/04/23 1315 by Brooke Rosales APRN, CRNA, NOLELE 09/04/23 1443 by Brooke Rosales APRN, CRNA, MNVaibhav documented in this encounter Social History Tobacco Use Types Packs/Day Years Used Date Smoking Tobacco: Never Smokeless Tobacco: Never Alcohol Use Standard Drinks/Week Comments Not Currently 0 (1 standard drink = 0.6 oz pur e alcohol) Don? t drink [facility] Utilities Answer Date Recorded In the past 12 months has [facility] [employer], gas, oil, or water [employer] threatened to shut off services in your [...] 04/27/2022 How often do you attend chur or pentecostalism services? More than 4 times per year 04/27/2022 Do you belong to any clubs o r organizations such as congregation groups, unions, fraternal or athletic groups, or [...] and heating? Not hard at all 04/27/2022 [facility] [place] [facility] Occupat ional Health - Occupational Stress [...] your living situation today? I have a [facility] place to live 08/25/2023 Education Answer Date Recorded What is the highest level of school you have completed or the highest degree you have received? 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 - 09/04/2023 2:58 PM CDT Patient: Niko Jennings Procedure Summary Date: 09/04/23 Room / Location: [address] / [facility] in [place], [place] Anesthesia Start: 1300 Anesthesia Stop: 1453 Procedures: REPAIR HERNIA UMBILICAL WITHOUT MESH. HYDROCELECTOMY. (Left) Diagnosis: Hernia (Hernia [K46.9].) Providers: Elen Gomes M.D., Ph.D. Responsible Provider: Abner Cohen M.D. Anesthesia Type: general ASA Status: 3 Anesthesia Type: general Last vitals Vitals Value Taken Time BP 100/62 09/04/23 1450 Temp Pulse 68 09/04/23 1458 Resp 16 09/04/23 1458 SpO2 97 % 09/04/23 1458 Vitals shown include unfiled device data. Please reference Vitals flowsheet for most recent vital signs. Anesthesia Post Evaluation Patient Disposition: general care unit Cardiovascular status: hemodynamics (HR & BP) acceptable Respiratory status: patent airway with spontaneous effort Temperature: normothermic Oxygen requirements: room air Level of consciousness: awake Pain score: pain adequately controlled and/or at baseline Post Op nausea/vomiting: none Hydration status: euvolemic * Anesthesia Procedure Notes - Brooke Rosales APRN, CRNA, MNA - 09/04/2023 1:22 PM CDTAssociated Order(s): Airway Airway Date/Time: 09/04/2023 1:15 PM Performed by: Brooke Rosales APRN, CRNA, MNA Authorized by: Abner Cohen M.D. Patient location during procedure: OR / Procedure Area PROCEDURE DETAILS: Mask difficulty assessment: not attempted Final airway type: video laryngoscope Laryngeal Manipulation: no Final best view of glottic structures - Cormack/Lehane Score: grade 1 ETT location: oral VL device: glide scope [place] scope blade size: 4 Tube size: 7.5 ETT distance at teeth/gum: 23 Oral tube type: standard ETT Cuffed: yes Leak Test Performed: no Number of attempt to successful placement: 1 Airway confirmation: bilateral breath sounds, positive ETCO2 and bilateral chest rise Other previous techniques attempted: none Additional Comments Uncomplicated RSI PRE PROCEDURE DETAILS: Pre evaluation for airway management: procedure Urgency: elective Preop assessment of probable difficulty: no difficulty anticipated Preoxygenation: bag valve mask SEDATION / ANESTHESIA Anesthesia method: anesthesia POST PROCEDURE DETAILS: Procedure outcome: successful Notable Events: no complications * Anesthesia Preprocedure Evaluation - Abner Cohen M.D. - 09/04/2023 12:26 PM CDT Preprocedure Anesthesia & H&P Assessment Procedure Summary Date/Time: 09/04/23 1233 Procedures: REPAIR HERNIA UMBILICAL WITHOUT MESH. REPAIR HERNIA INGUINAL WITH MESH. (Left) HYDROCELECTOMY. (Left) Diagnosis: Hernia [K46.9] Pre-op diagnosis: Hernia [K46.9]. Location: [address] [facility] / [facility] in [place], [place] Providers: Elen Gomes M.D., Ph.D. Pertinent components of the patient's history including current problem list, medical history, surgical history, family history, social history, medications and allergies were reviewed. Present illness and pre-op diagnosis were confirmed. The planned surgery / procedure was verified with the patient / legal guardian. The patient's general health condition remains unchanged RELEVANT COMORBID CONDITIONS CV (+) Hypertension Essential Primary GI (+) Gastroesophageal Reflux Disease NOS (+) Hypertension Portal (HCC) HEME (+) Thrombocytopenia (HCC) Respiratory (+) Pneumonitis Due To Inhalation Of Food And Vomit (HCC) Circulatory (+) Secondary Esophageal Varices Without Bleeding (HCC) Digestive (+) Hepatitis Autoimmune (HCC) (+) Stricture Esophagus Endocrine/Metabolic (+) Diabetes Mellitus Type 2 (HCC) (+) Hyperlipidemia Other (+) Ascites OBJECTIVE PHYSICAL EXAMINATION Airway (HEENT) Mallampati: II TM Distance: >3 FB Neck ROM: Full Mouth Opening: >3 cm Cardiovascular Rhythm: Regular Rate: Normal Cardiovascular Assessment: cardiovascular normal Functional Capacity: >4 METS Pulmonary Pulmonary Assessment: Clear General / Constitutional Constitutional Assessment: Normal General State of Health:: healthy appearing and calm ASSESSMENT / PLAN ANESTHESIA PLAN ASA: 3 Anesthesia Plan: general Patient seen and allergies reviewed, anesthesia plan and risks discussed directly with patient /legal guardian or through an cemetery vault installer. Risks/Benefits/Alternatives of Blood transfusion discussed with patient / legal guardian, includingan opportunity to ask questions and/or decline some or all transfusion therapies. The patient / legal guardian consented to the use of all blood products, as deemed medically necessary Approval to Proceed: approved for anesthesia documented in this encounter Plan of Treatment Upcoming Encounters Date Type Department Care Team (Latest Contact Info) Description 09/17/2023 10:30 AM CDT [facility] [place], [place] [address] [place] [address] Elen Gomes M.D., Ph.D. [address] [place] [phone] 10/16/2023 11:00 AM CDT Appointment Division of Gastroenterology in [place], [place] [address] [place] [address] Marv Myrick M.D., M.P.H. [address] [place] [phone] Discharge Disposition: Home or Self Care 11/10/2023 8:00 AM CDT Appointment Department of Laboratory Medicine and Pathology, [facility] in [place], [place] [address] [place] [phone] Marv Myrick M.D., M.P.H. [address] [place] [phone] 11/10/2023 3:00 PM CDT Office Visit Division of Gastroenterology in [place], [place] [address] [place] [phone] Marv Myrick M.D., M.P.H. [address] [place] [phone] documented as of this encounter Procedures Procedure Name Priority Date/Time Associated Diagnosis Comments LDA ANE ENDOTRACHEAL AIRWAY Routine 09/04/2023 1:15 PM CDT documented in this encounter Results * LDA ANE ENDOTRACHEAL AIRWAY (09/04/2023 1:15 PM CDT) Narrative Brooke Rosales APRN, CRNA, MNA - 09/04/2023 1:15 PM CDT Brooke Rosales APRN, CRNA, MNA ? 09/04/2023 ??1:23 PM Airway Date/Time: 09/04/2023 1:15 PM Performed by: Brooke Rosales APRN, CRNA MNA Authorized by: Abner Cohen M.D. ?? Patient location during procedure: OR / Procedure Area PROCEDURE DETAILS: Mask difficulty assessment: not attempted Final airway type: video laryngoscope Laryngeal Manipulation: no ?? Final best view of glottic structures - Cormack/Lehane Score: grade 1 ETT location: oral VL device: glide scope [place] scope blade size: 4 Tube size: 7.5 [...] complications Abner Cohen M.D. ANESTHESIA ORDERABLE S documented in this encounter Visit Diagnoses Not on filedocumented in this encounter Administered Medications Inactive Administered Medications - up to 3 most recent administrations Medication Order MAR Action Action Date Dose Rate Site ceFAZolin injection 2,000 mg (ANCEF) 2,000 mg (rounded from 1,717.5 mg = 25 mg/kg ? 68.7 kg), intravenous, Once, On Thu09/04/23 at 1315, For 1 dose, Intra-Op, Preoperatively within 1 hour prior to surgical incision If needed, reconstitute vial per package insert instructions. See IVAG for administration guidelines., Drug Monitoring Program: Pharmacist to adjust medication dosing based on indication and drug clearance factors., Indications: Prophylaxis, surgical Given 09/04/2023 1:25 PM CDT 2 g dexAMETHasone injection (DECADRON) intravenous, As needed, Starting on Thu09/04/23 at 1321, Anesthesia Intra-op Given 09/04/2023 1:21 PM CDT 4 mg ePHEDrine (PF) injection intravenous, As needed, Starting on Thu09/04/23 at 1319, Anesthesia Intra-op Given 09/04/2023 1:19 PM CDT 10 mg fentaNYL injection (SUBLIMAZE) intravenous, As needed, Starting on Thu09/04/23 at 1308, Anesthesia Intra-op Given 09/04/2023 1:11 PM CDT 50 mcg Given 09/04/2023 1:08 PM CDT 50 mcg Lactated Ringer's intravenous, Continuous Infusion: Per Instructions PRN, Starting on Thu09/04/23 at 1303, Anesthesia Intra-op New Bag 09/04/2023 1:03 PM CDT lidocaine (PF) (cardiac) injection intravenous, As needed, Starting on Thu09/04/23 at 1311, Anesthesia Intra-op Given 09/04/2023 1:13 PM CDT 150 mg Given 09/04/2023 1:11 PM CDT 100 mg ondansetron (PF) injection (ZOFRAN) intravenous, As needed, Starting on Thu09/04/23 at 1433, Anesthesia Intra-op Given 09/04/2023 2:33 PM CDT 4 mg phenylephrine injection intravenous, As needed, Starting on Thu09/04/23 at 1319, Anesthesia Intra-op Given 09/04/2023 1:19 PM CDT 100 mcg rocuronium injection (ZEMURON) intravenous, As needed, Starting on Thu09/04/23 at 1313, Anesthesia Intra-op Given 09/04/2023 1:13 PM CDT 70 mg sugammadex injection (BRIDION) intravenous, As needed, Starting on Thu09/04/23 at 1435, Anesthesia Intra-op Given 09/04/2023 2:35 PM CDT 120 mg documented in this encounter Care Teams Hemming And Tacking Machine Operator Relationship Specialty Start Date End Date Elsewhere, Pcp PCP - General Internal Medicine 08/19/21 documented as of this encounter
--- OUTSIDE RECORDS SUMMARY | 2023-09-12 06:11 | XMS_ITS | Encounter Summary ---
Author Organization [facility] Address [address] [place] [address] Care Team Providers Care Commissioning Agent Name Role Phone Elsewhere, Pcp Primary Care Provider Unavailabl e Reason for Referral * Outpatient (Routine) - Closed Specialty Diagnoses / Procedures Referred By Contac t Referred To Contact Diagnoses Hydrocele Procedures US Scrotum with Doppler Elen Gomes M.D., Ph.D. 200 [place] [phone] [facility] Referral ID Status Reason Start Date Expiration Date Visits Re quested Visits Authorized [id number] Closed 09/01/2023 08/31/2024 1 1 Reason for Visit * Outpatient (Routine) - Closed Specialty Diagnoses / Procedures Referred By Contjovani t Referred To Contact Diagnoses Hydrocele Procedures US Scrotum with Doppler Elen Gomes M.D., Ph.D. [address] [place] [phone] [facility] Referral ID Status Reason Start Date Expiration Date Visits Re quested Visits Authorized [id number] Closed 09/01/2023 08/31/2024 1 1 Encounter Details Date Type Department Care Team (Latest Contact Info) Description 09/03/2023 12:08 PM CDT - 09/03/2023 11:59 PM CDT Hospital Encounter Department of Radiology, [facility], in [place], [place] 200 [place] [address] Elen Gomes M.D., Ph.D. 200 [place] [phone] Hydrocele Discharge Disposition: Home or Self Care Social History Tobacco Use Types Packs/Day Years Used Date Smoking Tobacco: Never Smokeless Tobacco: Never Alcohol Use Standard Drinks/Week Comments Not Currently 0 (1 standard drink = 0.6 oz pur e alcohol) Don? t drink [facility] Utilities Answer Date Recorded In the [...] How often do you attend chur or orthodoxy services? More than 4 times per year 04/27/2022 Do you belong to any clubs o r organizations such as anabaptism groups, unions, fraternal or athletic groups, or [...] and heating? Not hard at all 04/27/2022 [facility] of Occupat ional Health - Occupational Stress [...] your living situation today? I have a [facility] place to live 08/25/2023 Education Answer Date Recorded What is the highest level of school you have completed or the highest degree you have received? 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 [address] [place] [phone] 10/16/2023 11:00 AM CDT Appointment Division of Gastroenterology in [place], [place] [address] [place] [phone] Marv Myrick M.D., M.P.H. [address] [place] [phone] Discharge Disposition: Home or Self Care 11/10/2023 8:00 AM CDT Appointment Department of Laboratory Medicine and Pathology, [facility] in [place], [place] [address] [place] [address] Marv Myrick M.D., M.P.H. [address] [place] [phone] 11/10/2023 3:00 PM CDT Office Visit Division of Gastroenterology in [place], [place] [address] [place] [address] Marv Myrick M.D., M.P.H. [address] [place] [address] documented as of this encounter Procedures Procedure Name Priority Date/Time Associated Diagnosis Comments US SCROTUM WITH DOPPLER RAD - Routine (most inpatients and all outpatients) 09/03/2023 1:59 PM CDT Hydrocele documented in this encounter Results * US Scrotum with [...] documented in this encounter Visit Diagnoses Diagnosis Hydrocele documented in this encounter Care Teams Commissioning Agent Relationship Specialty Start Date End Date Elsewhere, Pcp PCP - General Internal Medicine 08/19/21 documented as of this encounter
--- OUTSIDE RECORDS SUMMARY | 2023-09-12 06:11 | XMS_ITS | Encounter Summary ---
Author Organization [facility] Address [address] [place] [address] Care Team Providers Care Claims Director Name Role Phone Elsewhere, Pcp Primary Care Provider Unavailabl e Reason for Visit * Auth/Cert (Routine) Specialty Diagnoses / Procedures Referred By Santi t Referred To Contact Diagnoses Hernia Hernia Inguinal Left Hernia [K46.9]. Procedures REPAIR HERNIA UMBILICAL WITHOUT MESH. REPAIR HERNIA INGUINAL WITH MESH. HYDROCELECTOMY. Referral ID Status Reason Start Date Expiration Date Visits Re quested Visits Authorized [id number] 1 1 Encounter Details Date Type Department Care Team (Late st Contact Info) Description 09/04/2023 12:33 PM CDT - 09/04/2023 3:32 PM CDT Surgery [facility] [address] [place] [address] Elen Gomes M.D., Ph.D. [address] [place] [address] REPAIR HERNIA UMBILICAL WITHOUT MESH. Social History Tobacco Use Types Packs/Day Years Used Date Smoking Tobacco: Never Smokeless Tobacco: Never Alcohol Use Standard Drinks/Week Comments Not Currently 0 (1 standard drink = 0.6 oz pur e alcohol) Don? t drink [facility] Utilities Answer Date Recorded In the past 12 months has [employer], gas, oil, or water [employer] threatened to shut off services in your [...] often do you attend chur ch or quaker services? More than 4 times per year 04/27/2022 Do you belong to any clubs o r organizations such as presybeterian groups, unions, fraternal or athletic groups, or [...] and heating? Not hard at all 04/27/[address] [facility] of Occupat ional Health - Occupational Stress [...] your living situation today? I have a [facility] place to live 08/25/2023 Education Answer Date Recorded What is the highest level of school you have completed or the highest degree you have received? 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 * Oxycodone, Rapid Release (By mouth) (Puerto Rican) documented in this encounter Medications at Time [...] recommendations of Transplant Surgery, Nursing, Nutrition, Pharmacy, Whitewasher, Case Management and Hospital Coordinator. Electronically signed [...] hospital later today * Min Ha Jr., PharmRene., R.Ph. - 09/04/2023 8:32 AM CDT Images [...] Pharmacy Complete Set By: Min Ha Jr., PharmMarcusDMarcus, R.Ph. at 09/04/2023 8:32AM Taking? Last Dose [...] drain. Left primary inguinal hernia repair. Hydrocelectomy. REAL ESTATE OFFICE MANAGER: Leda Brandt M.D., Ph.D. A wheelchair van operator first responder actively participated and was necessary for one [...] upper quadrant was then found and a 15-Telugu CATHERINE was inserted through that. The tip was laid in the pelvis. The hernia defect was closed with #1 PDS suture. The skin site was closed with 4-0 running Monocryl. Patient tolerated the procedure well and was taken to the recovery unit in stable condition. TPR: 2 Elen Gomes M.D., Ph.D. CT CT Job ID: [id number] * Op Note - Rickie Tolliver M.D. - 09/04/2023 1:28 PM CDT Pre-op Diagnosis Hernia; hydrocele (communicating; left) Post-op Diagnosis Hernia; hydrocele (communicating; left) Hopper Attendant A wheelchair van operator first responder actively participated and was necessary for one [...] 10:30 AM CDT Office Visit Clemente mckinnon [facility] for [facility] Clinical Regeneration in [place], [place] [address] [place] [phone] Elen Gomes M.D., Ph.D. [address] [place] [phone] 10/16/2023 11:00 AM CDT Appointment Division of Gastroenterology in [place], [place] [address] [place] [phone] Marv Myrick M.D., M.P.H. [address] [place] [phone] Discharge Disposition: Home or Self Care 11/10/2023 8:00 AM CDT Appointment Department of Laboratory Medicine and Pathology, [facility] in [place], [place] [address] [place] [address] Marv Myrick M.D., M.P.H. [address] [place] [phone] 11/10/2023 3:00 PM CDT Office Visit Division of Gastroenterology in [place], [place] [address] [place] [phone] Marv Myrick M.D., M.P.H. [address] [place] [phone] documented as of this encounter Procedures Procedure [...] Ti Delvalle M.D., M.S. LAB BLOOD ADD-ON [facility] [address] [place], [place] [address] [address] [place] [address] * (ABNORMAL) Hepatic Function Panel (09/05/2023 9:36 [...] Ti Delvalle M.D., M.S. LAB BLOOD ADD-ON Performing Organization Address City/[facility]/ZIP Co de Phone Number [facility] [address] [place] [address], [facility] 200 [place] [address] * (ABNORMAL) CBC without Differential (09/05/2023 6:50 [...] Leda Brandt M.D., Ph.D. LAB BLOOD ADD-ON [facility] [address] [place] [address], [facility] 200 [place] [address] * (ABNORMAL) Basic Metabolic Panel (09/05/2023 6:50 [...] Leda Brandt M.D., Ph.D. LAB BLOOD ADD-ON [facility] [address] [place] [address], [facility] [address] [place] [address] * Glucose, POCT (09/04/2023 3:30 PM CDT) Glucose, POCT, B 129 70 - 140 mg/dL 09/04/2023 5:25 PM CDT PCDE Site Capillary 09/04/2023 5:25 PM CDT PCDE Blood 09/04/2023 3:30 PM CDT 09/04/2023 5:25 PM CDT Unknown Provider LAB POCT ORDERABLES- MANUAL Performing Organization Address City/[facility]/ZIP Co de Phone Number POC [facility] 200 [place] [address], [facility] PCDE [facility] 200 [place] [address] * Glucose, POCT (09/04/2023 12:25 PM CDT) Glucose, POCT, B 103 70 - 140 mg/dL 09/04/2023 12:27 PM CDT PCDE Site Capillary 09/04/2023 12:27 PM CDT PCDE Blood 09/04/2023 12:2 5 PM CDT 09/04/2023 12:27 PM CDT Unknown Provider LAB POCT ORDERABLES- MANUAL Performing Organization Address City/[facility] Co de Phone Number POC [facility] [address] [place] [address], [facility] PCDE [facility] 200 [place] [address] * Glucose, POCT (09/04/2023 8:49 AM CDT) Glucose, POCT, B 111 70 - 140 mg/dL 09/04/2023 8:50 AM CDT PCDE Last Intake 3-4 hours 09/04/2023 8:50 AM CDT PCDE Blood 09/04/2023 8:49 AM CDT 09/04/2023 8:50 AM CDT Unknown Provider LAB POCT ORDERABLES- MANUAL Performing Organization Address City/[facility]/ZIP Co de Phone Number POC [facility] [address] [place] [address], [facility] PCDE [facility] 200 [place] [address] * (ABNORMAL) Hemoglobin A1c (09/04/2023 8:36 AM [...] Leda Brandt M.D., Ph.D. LAB BLOOD ADD-ON [facility] [address] [place] [address], [facility] [address] [place] [address] documented in this encounter Visit Diagnoses Diagnosis Hernia Inguinal Left- Primary Hernia documented in this encounter Admitting Diagnoses Diagnosis Hernia Inguinal Left documented in this encounter Administered Medications Inactive Administered Medications - up to 3 most recent administrations Medication Order MAR Action Action Date Dose Rate Site BUPivacaine liposome (PF) 20 mL, BUPivacaine 30 mL 50 mL injection As needed, Starting on Thu09/04/23 at 1432, Intra-Op Given 09/04/2023 2:32 PM CDT 50 mL Abdominal Tissue furosemide tablet 40 mg (LASIX) 40 mg, oral, 2 times daily, First dose on Thu09/04/23 at 2100 Given 09/05/2023 9:42 AM CDT 40 mg Given 09/04/2023 8:09 PM CDT 40 mg levoFLOXacin tablet 750 mg (LEVAQUIN) 750 mg, [...] mL/hr 0113 (New Bag - Provider: Rola Brown R.N.) ceFAZolin injection 2,000 mg (ANCEF) (COMPLETED) [...] 1325 (Given - Provider: Thai Cameron APRN, VIDEOTAPE EDITOR) furosemide tablet 40 mg (LASIX) 40 mg, oral, 2 times daily, First dose on Thu09/04/23 at 2100 2008 (Given - Provider: Rola Brown R.N.) 09 (Given - Provider: Jasmyn Villeda R.N.) levoFLOXacin tablet 750 mg (LEVAQUIN) 750 mg, [...] 2008 (Given - Provider: Rola Brown R.N.) 09 (Given - Provider: Jasmyn Villeda R.N.) Continuous [...] 1724 documented in this encounter Care Teams Claims Director Relationship Specialty Start Date End Date Elsewhere, Pcp PCP - General Internal Medicine 08/19/21 documented as of this encounter
--- OUTSIDE RECORDS SUMMARY | 2023-09-12 06:11 | XMS_ITS | Encounter Summary ---
Author Organization [facility] Address [address] [place] [address] Care Team Providers Care Equal Employment Opportunity Officer Name Role Phone Elsewhere, Pcp Primary Care Provider Unavailabl e Reason for Visit * Appointment Request (Routine) - Closed Specialty Diagnoses / Procedures Referred By Santi t Referred To Contact Transplant Liver Diagnoses Hernia Inguinal Hernia Inguinal Bilateral Elen Gomes M.D., Ph.D. [address] [place] [phone] Referral ID Status Reason Start Date Expiration Date Visits Re quested Visits Authorized [id number] Closed 09/01/2023 08/31/2024 1 1 Encounter Details Date Type Department Care Team (Latest Contact Info) Description 09/03/2023 11:00 AM CDT [facility] [place], [place] [address] [place] [phone] Elen Gomes M.D., Ph.D. [address] [place] [phone] Chronic Liver Disease (Primary Dx) Social History Tobacco Use Types Packs/Day Years Used Date Smoking Tobacco: Never Smokeless Tobacco: Never Alcohol Use Standard Drinks/Week Comments Not Currently 0 (1 standard drink = 0.6 oz pur e alcohol) Don? t drink [facility] Utilities Answer Date Recorded In [...] often do you attend chur ch or moravian services? More than 4 times per year 04/27/2022 Do you belong to any clubs o r organizations such as sikh groups, unions, fraternal or athletic groups, or [...] and heating? Not hard at all 04/27/2022 [facility] of Occupat ional Health - Occupational Stress [...] your living situation today? I have a [facility] place to live 08/25/2023 Education Answer Date Recorded What is the highest level of school you have completed or the highest degree you have received? 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 - 09/03/2023 11:00 AM CDT HISTORY OF PRESENT ILLNESS Mr. Jennings is back today for surgical listing. We had a visit with him several weeks ago to addresshis highly symptomatic umbilical and left-sided groin hernias. He has underlying cirrhosis and ascites. However, given how much these two are affecting his quality of life, we agreed to proceed with a surgical approach. In the interim, I contacted Dr. Tolliver as Mr. Jennings has a left hydrocele. He kindly agreed to scrub with me to address that issue. ASSESSMENT / PLAN #1 Listing for an umbilical hernia, left hydrocelectomy, and left inguinal hernia repair I met with Mr. Jennings and his again. We discussed the risks of the surgery extensively. Specifically, he has underlying cirrhosis, and we might cause a decompensation. He knows that we would leave a drain in his abdomen to control his ascites for the next 2 weeks while the incisions are healing. He is okay to proceed. The risks, goals, alternatives, benefits, team approach, advance directives, and possible need for blood transfusion were discussed. Patient agrees and wishes to proceed. Elen Gomes M.D., Ph.D. CT CT Job ID: [id number] documented in this encounter Plan of Treatment Upcoming Encounters Date Type Department Care Team (Latest Contact Info) Description 09/17/2023 10:30 AM CDT [facility] in [place], [place] [address] [place] [phone] Elen Gomes M.D., Ph.D. [address] [place] [address] 10/16/2023 11:00 AM CDT Appointment Division of Gastroenterology in [place], [place] [address] [place] [phone] Marv Myrick M.D., M.P.H. [address] [place] [phone] Discharge Disposition: Home or Self Care 11/10/2023 8:00 AM CDT Appointment Department of Laboratory Medicine and Pathology, [facility] in [place], [place] [address] [place] [phone] Marv Myrick M.D., M.P.H. [address] [place] [phone] 11/10/2023 3:00 PM CDT Office Visit Division of Gastroenterology in [place], [place] [address] [place] [phone] Marv Myrikc M.D., M.P.H. [address] [place] [phone] documented as of this encounter Visit Diagnoses Diagnosis Chronic Liver Disease- Primary documented in this encounter Care Teams Equal Employment Opportunity Officer Relationship Specialty Start Date End Date Elsewhere, Pcp PCP - General Internal Medicine 08/19/21 documented as of this encounter
--- OUTSIDE RECORDS SUMMARY | 2023-09-12 06:11 | XMS_ITS | Encounter Summary ---
Author Organization [facility] [place] Address [address] [place] [address] Care Team Providers Care Legal Coordinator Name Role Phone Elsewhere, Pcp Primary Care Provider Unavailabl e Encounter Details Date Type Department Care Team (Late st Contact Info) Description 08/28/2023 Remote Monitoring Remote Patient Monitoring [facility] [address] [place] [address] Briana Mayo Social History Tobacco Use Types Packs/Day Years Used Date Smoking Tobacco: Never Smokeless Tobacco: Never Alcohol Use Standard Drinks/Week Comments Not Currently 0 (1 standard drink = 0.6 oz pur e alcohol) Don? t drink [facility] Utilities Answer Date Recorded In the past 12 months has [employer], gas, oil, or water [employer] threatened to shut off services in your [...] How often do you attend chur or restoration services? More than 4 times per year 04/27/2022 Do you belong to any clubs o r organizations such as pentecostal groups, unions, fraternal or athletic groups, or [...] and heating? Not hard at all 04/27/2022 [facility] - Occupational Stress Questionnaire Answer Date [...] your living situation today? I have a [facility] place to live 08/25/2023 Education Answer Date Recorded What is the highest level of school you have completed or the highest degree you have received? 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 The Remote Patient Monitoring care team recommended that the patient receive outpatient care through the [facility] [place] Remote Patient Monitoring program. The program offers the patient education regarding their illness, nursing support, and equipment to self-report vital biometric data to the care team during their recovery. The patient declined to participate in the Remote Monitoring program. The Remote Monitoring team isno longer following the patient for this disease. documented in this encounter Plan of Treatment Upcoming Encounters Date Type Department Care Team (Latest Contact Info) Description 09/17/2023 10:30 AM CDT Office Visit Clemente mckinnon [facility] for Transplantation and Clinical Regeneration in [place], [place] [address] [place] [address] Elen Gomes M.D., Ph.D. [address] [place] [phone] 10/16/2023 11:00 AM CDT Appointment Division of Gastroenterology in [place], [place] [address] [place] [phone] Marv Myrick M.D., M.P.H. [address] [place] [phone] Discharge Disposition: Home or Self Care 11/10/2023 8:00 AM CDT Appointment Department of Laboratory Medicine and Pathology, [facility] in [place], [place] [address] [place] [phone] Marv Myrick M.D., M.P.H. [address] [place] [phone] 11/10/2023 3:00 PM CDT Office Visit Division of Gastroenterology in [place], [place] [address] [place] [phone] Marv Myrick M.D., M.P.H. [address] [place] [phone] documented as of this encounter Visit Diagnoses Not on filedocumented in this encounter Care Teams Legal Coordinator Relationship Specialty Start Date End Date Elsewhere, Pcp PCP - General Internal Medicine 08/19/21 documented as of this encounter
--- OUTSIDE RECORDS SUMMARY | 2023-09-12 06:12 | XMS_ITS | Encounter Summary ---
Author Organization [facility] Address [address] [place] [id number] Care Team Providers Care Saw Edge Fuser Circular Name Role Phone Elsewhere, Pcp Primary Care Provider Unavailabl e Encounter Details Date Type Department Care Team (Latest Contact Info) Description 08/12/2023 11:33 AM CDT - 08/12/2023 11:59 PM CDT Hospital Encounter Department of Laboratory Medicine and Pathology, [facility], in [place], [place] [address] [place] [phone] Marv Myrick M.D., M.P.H. [address] [place] [phone] Alcoholic Cirrhosis Of Liver With Ascites (HCC) Discharge Disposition: Home or Self Care Social History Tobacco Use Types Packs/Day Years Used Date Smoking Tobacco: Never Smokeless Tobacco: Never Alcohol Use Standard Drinks/Week Comments Not Currently 0 (1 standard drink = 0.6 oz pur e alcohol) Don? t drink [facility] Utilities Answer Date Recorded In the past 12 months has e electric, gas, oil, or water company threatened to shut off services in your home? No 05/07/2023 Humiliation, Afraid, Rape, and Kick questionnair e Answer Date Recorded Within the last year, have y ou been afraid of your partner or ex-partner? No 04/27/2022 Within the last year, have y ou been humiliated or emotionally abused in other ways by your partner or ex-partner? No Within the last year, have y ou been kicked, hit, slapped, or otherwise physically hurt by your partner or ex-partner? No 04/27/2022 Within the last year, have y ou been raped or forced to have any kind of sexual activity by your partner or ex-partner? No 04/27/2022 Social Connection and Isolat ion Panel [NHANES] [...] any clubs o r organizations such as holiness groups, unions, fraternal or athletic groups, or [...] and heating? Not hard at all 04/27/2022 [facility] of Occupat ional Health - Occupational Stress [...] the money to buy more. Never true 05/07/19 24 Within the past 12 months, t he food you bought just didn't last and you didn't have money to get more. Never true 05/07/2023 PRAPARE - Transportation Answer Date Re corded In the past 12 months, has l ack of transportation kept you from medical appointments or from getting medications? No 04/23 In the past 12 months, has l ack of transportation kept you from meetings, work, or from getting things needed for daily living? No 05/07/2023 Nutrition Answer Date Recorded On average, how [...] your living situation today? I have a [facility] place to live 05/07/2023 Education Answer Date Recorded What is the highest level of school you have completed or the highest degree you have received? 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 empagliflozin (JARDIANCE) 10 mg tablet Take 1 tablet by mouth daily. 12/05/2020 eplerenone (INSPRA) 50 mg tabletIndications:Asc ites Chronic Take 2 tablets (100 mg total) [...] by mouth every morning before breakfast. 07/20/2020 rosuvastatin (CRESTOR) 20 mg tablet Take 20 mg by mouth daily. 05/15/2020 apixaban (ELIQUIS) 2.5 mg tablet Take 1 tablet (2.5 mg total) by mouth 2 (two) times a day. Take to minimize the risk for developing a blood clot. After your last dose of this medication start taking aspirin if this was recommended. 84 tablet 05/13/2023 08/25/2023 ascorbic acid, vitamin C, (VITAMIN C) 500 mg tablet Take 500 mg by mouth daily. 08/25/2023 oxyCODONE (ROXICODONE) 5 mg immediate release tabletIndications:Acu te Pain Exception Take 1 tablet (5 mg total) by mouth every 4 (four) hours as needed for severe pain or score 7-10 of 10 Indication: Acute Pain Exception. 25 tablet 05/13/2023 08/25/2023 traMADoL (ULTRAM) 50 mg tabletIndications:Acu te Pain Exception Take 1 tablet (50 mg total) by mouth every 4 (four) hours as needed for pain Indications: Acute Pain Exception. 25 tablet 05/13/2023 08/25/2023 documented as of this encounter Plan of Treatment Upcoming Encounters Date Type Department Care Team (Latest Contact Info) Description 09/17/2023 10:30 AM CDT [facility] [place], [place] 200 [place] [address] Elen Gomes M.D., Ph.D. 200 [place] [phone] 10/16/2023 11:00 AM CDT Appointment Division of Gastroenterology in [place], [place] [address] [place] [address] Marv Myrick M.D., M.P.H. [address] [place] [phone] Discharge Disposition: Home or Self Care 11/10/2023 8:00 AM CDT Appointment Department of Laboratory Medicine and Pathology, [facility] in [place], [place] [address] [place] [phone] Marv Myrick M.D., M.P.H. [address] [place] [phone] 11/10/2023 3:00 PM CDT Office Visit Division of Gastroenterology in [place], [place] [address] [place] [phone] Marv Myrick M.D., M.P.H. [address] [place] [phone] documented as of this encounter Procedures Procedure Name Priority Date/Time Associated Diagnosis Comments CBC WITH DIFFERENTIAL, B Routine 08/12/2023 11:41 AM CDT Alcoholic Cirrhosis Of Liver With Ascites (HCC) HEPATIC FUNCTION PANEL, S Routine 08/12/2023 11:40 AM CDT Alcoholic Cirrhosis Of Liver With Ascites (HCC) BASIC METABOLIC PANEL, S/P Routine 08/12/2023 11:40 AM CDT Alcoholic Cirrhosis Of Liver With Ascites (HCC) documented in this encounter Results * (ABNORMAL) CBC with Differential, Blood (08/12/2023 11:41 AM CDT) Hemoglobin 11.4(L) 13.2 - 16.6 g/dL 08/12/2023 12:26 PM CDT DTL Hematocrit 34.2(L) 38.3 - 48.6 % 08/12/2023 12:26 PM CDT DTL Erythrocytes 3.61(L) 4.35 - 5.65 x10(12)/L 08/12/2023 12:26 PM CDT DTL MCV 94.7 78.2 - 97.9 fL 08/12/2023 12:26 PM CDT DTL RBC Distrib Width 16.2(H) 11.8 - 14.5 % 08/12/2023 12:26 PM CDT DTL Platelet Count 62(L) 135 - 317 x10(9)/L 08/12/2023 12:26 PM CDT DTL Leukocytes 3.4 3.4 - 9.6 x10(9)/L 08/12/2023 12:26 PM CDT DTL Neutrophils 2.13 1.56 - 6.45 x10(9)/L 08/12/2023 12:26 PM CDT DHPM Lymphocytes 0.46(L) 0.95 - 3.07 x10(9)/L 08/12/2023 12:26 PM CDT DTL Monocytes 0.40 0.26 - 0.81 x10(9)/L 08/12/2023 12:26 PM CDT DTL Eosinophils 0.41 0.03 - 0.48 x10(9)/L 08/12/2023 12:26 PM CDT DTL Basophils 0.04 0.01 - 0.08 x10(9)/L 08/12/2023 12:26 PM CDT DTL Blood (Blood, Venous) 08/12/2023 11:41 AM CDT 08/12/2023 11:57 AM CDT Marv Myrick M.D., M.P.H. LAB BLOO D ADD-ON [facility] [address] [place] [address], [facility] DTL [facility][note 3] [address] [place] [address] [facility] [address] [place] [address] * (ABNORMAL) Basic Metabolic Panel (08/12/2023 11:40 AM CDT) Pathologist [facility] Potassium, S 3.5(L) 3.6 - 5.2 mmol/L 08/12/2023 1:14 PM CDT DTL Sodium, S 137 135 - 145 mmol/L 08/12/2023 1:14 PM CDT DTL Chloride, S 102 98 - 107 mmol/L 08/12/2023 1:14 PM CDT DTL Bicarbonate, S 26 22 - 29 mmol/L 08/12/2023 1:14 PM CDT DTL Anion Gap 9 7 - 15 08/12/2023 1:14 PM CDT DTL BUN (Blood Urea Nitrogen), S 24 8 - 24 mg/dL 08/12/2023 1:14 PM CDT DTL Creatinine 0.96 0.74 - 1.35 mg/dL 08/12/2023 1:14 PM CDT DTL Estimated GFR (eGFR) 83 >=60 mL/min/BSA 08/12/2023 1:14 PM CDT DTL Comment: Estimated GFR calculated using the 2020 CKD_EPI creatinine equation. Calcium, Total, S 8.7(L) 8.8 - 10.2 mg/dL 08/12/2023 1:14 PM CDT DTL Glucose, S 116 70 - 140 mg/dL 08/12/2023 1:14 PM CDT DTL Blood (Blood, Venous) 08/12/2023 11:40 AM CDT 08/12/2023 12:17 PM CDT Marv Myrick M.D., M.P.H. LAB BLOO D ADD-ON [facility] [address] [place] [address], [facility] [address] [place] [address] * (ABNORMAL) Hepatic Function Panel (08/12/2023 11:40 AM CDT) Bilirubin, Total, S 1.0 0.0 - 1.2 mg/dL 08/12/2023 1:14 PM CDT DTL Bilirubin, Direct, S 0.4(H) 0.0 - 0.3 mg/dL 08/12/2023 1:14 PM CDT DTL Aspartate Aminotransferase (AST), S 46 8 - 48 U/L 08/12/2023 1:14 PM CDT DTL Alanine Aminotransferase (ALT), S 36 7 - 55 U/L 08/12/2023 1:14 PM CDT DTL Alkaline Phosphatase, S 266(H) 40 - 129 U/L 08/12/2023 1:14 PM CDT DTL Albumin, S 2.9(L) 3.5 - 5.0 g/dL 08/12/2023 1:14 PM CDT DTL Protein, Total, S 7.6 6.3 - 7.9 g/dL 08/12/2023 1:14 PM CDT DTL Blood (Blood, Venous) 08/12/2023 11:40 AM CDT 08/12/2023 12:17 PM CDT Marv Myrick M.D., M.P.H. LAB BLOO D ADD-ON [facility] [address] [place] [address], [facility] DTL [facility][note 3] [address] [place] [address] documented in this encounter Visit Diagnoses Diagnosis Alcoholic Cirrhosis Of Liver With Ascites (HCC) documented in this encounter Care Teams Saw Edge Fuser Circular Relationship Specialty Start Date End Date Elsewhere, Pcp PCP - General Internal Medicine 08/19/21 documented as of this encounter
--- OUTSIDE RECORDS SUMMARY | 2023-09-12 06:12 | XMS_ITS | Encounter Summary ---
Author Organization [facility] Address [address] [place] [address] Care Team Providers Care Warehouse Shipping Associate Name Role Phone Elsewhere, Pcp Primary Care Provider Unavailabl e Encounter Details Date Type Department Care Team (Late st Contact Info) Description 08/27/2023 2:05 PM CDT Ancillary Procedure Department of Nursing Social History Tobacco Use Types Packs/Day Years Used Date Smoking Tobacco: Never Smokeless Tobacco: Never Alcohol Use Standard Drinks/Week Comments Not Currently 0 (1 standard drink = 0.6 oz pur e alcohol) Don? t drink [facility] Utilities Answer Date Recorded In the past [address] [facility] electric, gas, oil, or water [employer] threatened to shut off services in your [...] often do you attend chur ch or restorationist services? More than 4 times per year 04/27/2022 Do you belong to any clubs o r organizations such as bahai groups, unions, fraternal or athletic groups, or [...] and heating? Not hard at all 04/27/2022 [facility] of Occupat ional Health - Occupational Stress [...] your living situation today? I have a [facility] place to live 08/25/2023 Education Answer Date Recorded What is the highest level of school you have completed or the highest degree you have received? 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 [address] [place] [phone] 10/16/2023 11:00 AM CDT Appointment Division of Gastroenterology in [place], [place] [address] [place] [phone] Marv Myrick M.D., M.P.H. [address] [place] [phone] Discharge Disposition: Home or Self Care 11/10/2023 8:00 AM CDT Appointment Department of Laboratory Medicine and Pathology, [facility], in [place], [place] [address] [place] [address] Marv Mryick M.D., M.P.H. [address] [place] [phone] 11/10/2023 3:00 PM CDT Office Visit Division of Gastroenterology in [place], [place] [address] [place] [address] Marv Myrick M.D., M.P.H. [address] [place] [phone] documented as of this encounter Procedures Procedure Name Priority Date/Time Associated Diagnosis Comments NURSING IMAGE EXAM Routine 08/27/2023 2: 05 PM CDT documented in this encounter Results * Arm, Right-Nursing Image Exam (08/27/2023 2:05 [...] NON RAD IMAGI NG PROCEDURES IIMS NA documented in this encounter Visit Diagnoses Not on filedocumented in this encounter Care Teams Warehouse Shipping Associate Relationship Specialty Start Date End Date Elsewhere, Pcp PCP - General Internal Medicine 08/19/21 documented as of this encounter
--- OUTSIDE RECORDS SUMMARY | 2023-09-12 06:12 | XMS_ITS | Encounter Summary ---
Author Organization [facility] Address [address] [place] [address] Care Team Providers Care Technical Intern Name Role Phone Elsewhere, Pcp Primary Care Provider Unavailabl e Reason for Referral * Outpatient (Routine) - Closed Specialty Diagnoses / Procedures Referred By Santi segundo Referred To Contact Diagnoses Hepatitis Autoimmune (HCC) Cirrhosis Nonalcoholic (HCC) Ascites Chronic Procedures US Paracentesis with Imaging Guidance Marv Myrick M.D., M.P.H. [address] [place] [address] [facility] Referral ID Status Reason Start Date Expiration Date Visits Re quested Visits Authorized [id number] Closed 07/07/2023 07/06/2024 1 1 Reason for Visit * Outpatient (Routine) - Closed Specialty Diagnoses / Procedures Referred By Santi segundo Referred To Contact Diagnoses Hepatitis Autoimmune (HCC) Cirrhosis Nonalcoholic (HCC) Ascites Chronic Procedures US Paracentesis with Imaging Guidance Marv Myrick M.D., M.P.H. [address] [place] [phone] [facility] Referral ID Status Reason Start Date Expiration Date Visits Re quested Visits Authorized [id number] Closed 07/07/2023 07/06/2024 1 1 Encounter Details Date Type Department Care Team (Latest Contact Info) Description 07/10/2023 1:56 PM CDT - 07/10/2023 3:28 PM CDT Hospital Encounter Department of Radiology, [facility], in [place], [place] [address] [place] [address] Marv Myrick M.D., M.P.H. [address] [place] [address] Hepatitis Autoimmune (HCC); Cirrhosis Nonalcoholic (HCC); Ascites Chronic Discharge Disposition: Home or Self Care Social History Tobacco Use Types Packs/Day Years Used Date Smoking Tobacco: Never Smokeless Tobacco: Never Alcohol Use Standard Drinks/Week Comments Not Currently 0 (1 standard drink = 0.6 oz pur e alcohol) Don? t drink [facility] Utilities Answer Date Recorded In the past 12 months has [employer], gas, oil, or water [employer] threatened to shut off services in your [...] week 04/27/2022 How often do you attend [facility] or judaism services? More than 4 times per year 04/27/2022 Do you belong to any clubs o r organizations such as samaritan groups, unions, fraternal or athletic groups, or [...] and heating? Not hard at all 04/27/2022 [facility] of Occupat ional Health - Occupational Stress [...] have a [facility] place to live 05/07/2023 Education Answer Date Recorded What is the highest level of school you have completed or the highest degree you have received? 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 [place], [place] [address] [place] [phone] Elen Gomes M.D., Ph.D. [address] [place] [phone] 10/16/2023 11:00 AM CDT Appointment Division of Gastroenterology in [place], [place] [address] [place] [phone] Marv Myrick M.D., M.P.H. [address] [place] [phone] Discharge Disposition: Home or Self Care 11/10/2023 8:00 AM CDT Appointment Department of Laboratory Medicine and Pathology, [facility] in [place], [place] [address] [place] [phone] Marv Myrick M.D., M.P.H. [address] [place] [phone] 11/10/2023 3:00 PM CDT Office Visit Division of Gastroenterology in [place], [place] [address] [place] [address] Marv Myrick M.D., M.P.H. [address] [place] [phone] documented as of this encounter Procedures Procedure Name Priority Date/Time Associated Diagnosis Comments US PARACENTESIS WITH IMAGING GUIDANCE RAD - Routine (most inpatients and all outpatients) 07/10/2023 3:21 PM CDT Hepatitis Autoimmune (HCC) Cirrhosis Nonalcoholic (HCC) Ascites Chronic BACTERIAL CULTURE, AEROBIC + SUSC Timed 07/10/2023 2:53 PM CDT Hepatitis Autoimmune (HCC) Cirrhosis Nonalcoholic (HCC) Ascites Chronic CELL COUNT AND DIFFERENTIAL, BF Timed 07/10/2023 2:53 PM CDT Hepatitis Autoimmune (HCC) Cirrhosis Nonalcoholic (HCC) Ascites Chronic documented in this encounter Results * US Paracentesis with Imaging Guidance (07/10/2023 [...] Ultrasound-guided paracentesis. EP Marv Myrick M.D., M.P.H. IM US P ROCEDURES * Cell Count and Differential, Body Fluid (07/10/2023 2:53 PM CDT) Fluid Type Peritoneal /Paracente sis 07/10/2023 5:09 PM CDT [facility] Gross Appearance Serous 07/10/19 24 5:09 PM CDT [facility] Total Nucleated Cells 97 /mcL 07/10/2023 5:09 PM CDT [facility] Comment: ----REFERENCE VALUE---- Synovial: <150 /mcL Peritoneal: <500 /mcL Pleural: <500 /mcL Pericardial: <500 /mcL ----ADDITIONAL INFORMATION---- This test has been modified from the drainlayer's instructions. Its performance characteristics were determined by [facility] in a manner consistent with CLIA [...] Cells 8 % 07/10/2023 5:10 PM CDT [facility] Comment: ----REFERENCE VALUE---- The reference range and other method performance specifications have not been established for this bodyfluid. The test result must be integrated into the clinical context for interpretation. Other Cells Are: See Comment 07/11/2023 8:12 AM CDT DH[facility] Comment:Mesothelial cells Comment See Comment 07/11/2023 8:12 AM CDT DH[facility] Comment:No blasts or maligna nt cells seen. Reviewed by: Pipo 07/11/2023 8:12 AM CDT [facility] Fluid (Peritoneal Fluid) 07/10/2023 2:53 PM CDT Marv Myrick M.D., M.P.H. LAB BODY FLUIDS AND STOOLS ORDERABLES [facility] 200 [place] [address], [facility] 200 [place] [address] * Bacterial Culture, Aerobic + Susceptibility (07/10/2023 2:53 PM CDT) Bacterial Culture, Aerobic + Susc No growth after 5 days of incubation. 07/15/2023 10:53 AM CDT DTL Fluid (Peritoneal Fluid) 07/10/2023 2:53 PM CDT Narrative [facility] - 07/15/2023 10:53 AM CDT Bacterial Culture: Received Bactec aerobic and Bactec anaerobic bottles Marv Myrick M.D., M.P.H. LAB MICR OBIOLOGY - GENERAL ORDERABLES [facility] [address] [place] [address], [facility] DTL [facility] [address] [place] [address] documented in this encounter Visit Diagnoses Diagnosis Hepatitis Autoimmune (HCC) Cirrhosis Nonalcoholic (HCC) Ascites Chronic documented in this encounter Administered Medications Inactive Administered Medications - up to 3 most recent administrations Medication Order MAR Action Action Date Dose Rate Site lidocaine 10 mg/mL (1 %) injection (XYLOCAINE) As needed, Starting on Thu07/10/23 at 1508, Intra-Op Given 07/10/2023 3:08 PM CDT 1 mL Abdominal Tissue documented in this encounter Active and Recently Administered Medications Times are shown in CDT. PRN Medication Order 07/08/2023 07/09/2023 07/10/2023 lidocaine 10 mg/mL (1 %) injection (XYLOCAINE) (COMPLETED) As needed, Starting on Thu07/10/23 at 1508, Intra-Op 1508 (Given - Provid er: Juan F Valles M.D. - Comment: EDGAR) documented in this encounter Care Teams Technical Intern Relationship Specialty Start Date End Date Elsewhere, Pcp PCP - General Internal Medicine 08/19/21 documented as of this encounter
--- OUTSIDE RECORDS SUMMARY | 2023-09-12 06:12 | XMS_ITS | Encounter Summary ---
Author Organization [facility] Address [address] [place] [address] Care Team Providers Care Maintenance Equipment Operator Name Role Phone Elsewhere, Pcp Primary Care Provider Unavailabl e Encounter Details Date Type Department Care Team (Latest Contact Info) Description 08/25/2023 7:30 AM CDT Ancillary Procedure Department of Gastroenterology Social History Tobacco Use Types Packs/Day Years Used Date Smoking Tobacco: Never Smokeless Tobacco: Never Alcohol Use Standard Drinks/Week Comments Not Currently 0 (1 standard drink = 0.6 oz pur e alcohol) Don? t drink [facility] Utilities Answer Date Recorded In the past 12 months has [facility] electric, gas, oil, or water travayl threatened to shut off services in your [...] often do you attend chur ch or orthodox services? More than 4 times per year 04/27/2022 Do you belong to any clubs o r organizations such as zoroastrianism groups, unions, fraternal or athletic groups, or [...] and heating? Not hard at all 04/27/2022 [facility] of Occupat ional Health - Occupational Stress [...] your living situation today? I have a [facility] place to live 08/25/2023 Education Answer Date Recorded What is the highest level of school you have completed or the highest degree you have received? 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 [address] [place] [phone] 10/16/2023 11:00 AM CDT Appointment Division of Gastroenterology in [place], [place] [address] [place] [phone] Marv Myrick M.D., M.P.H. [address] [place] [phone] Discharge Disposition: Home or Self Care 11/10/2023 8:00 AM CDT Appointment Department of Laboratory Medicine and Pathology, [facility], in [place], [place] [address] [place] [phone] Marv Myrick M.D., M.P.H. [address] [place] [phone] 11/10/2023 3:00 PM CDT Office Visit Division of Gastroenterology in [place], [place] [address] [place] [phone] Marv Myrick M.D., M.P.H. [address] [place] [phone] documented as of this encounter Procedures Procedure Name Priority Date/Time Associated Diagnosis Comments GASTROENTEROLOGY IMAGE EXAM Routine 08/25/2023 7:30 AM CDT documented in this encounter Results * Upper GI endoscopy-Gastroenterology Image Exam (08/25/2023 7:30 AM CDT) 08/25/2023 7:26 AM CDT Narrative IIMS - 08/25/2023 10:11 AM CDT This order has been created and auto-finalized to support the import of images acquired without order. The clinical documentation to support these images can be found on the encounter that produced images. Provider Not In System IMG NON RAD IMAGI NG PROCEDURES IIMS NA documented in this encounter Visit Diagnoses Not on filedocumented in this encounter Care Teams Maintenance Equipment Operator Relationship Specialty Start Date End Date Elsewhere, Pcp PCP - General Internal Medicine 08/19/21 documented as of this encounter
--- OUTSIDE RECORDS SUMMARY | 2023-09-12 06:12 | XMS_ITS | Encounter Summary ---
Author Organization [facility] Address [address] [place] [address] Care Team Providers Care Ditch Rider Name Role Phone Elsewhere, Pcp Primary Care Provider Unavailabl e Reason for Referral * Transplant (Routine) - Closed Specialty Diagnoses / Procedures Referred By Santi segundo Referred To Contact Transplant Diagnoses Hernia Inguinal Marv Myrick M.D., M.P.H. [address] [place] [phone] [facility] Referral ID Status Reason Start Date Expiration Date Visits Re quested Visits Authorized [id number] Closed 07/13/2023 01/11/2025 1 1 Encounter Details Date Type Department Care Team (Latest Contact Info) Description 07/13/2023 Orders Only Division of Gastroenterology in [place], [place] [address] [place] [phone] Marv Myrick M.D., M.P.H. [address] [place] [phone] Hernia Inguinal (Primary Dx); Alcoholic Cirrhosis Of Liver With Ascites (HCC) Social History Tobacco Use Types Packs/Day Years Used Date Smoking Tobacco: Never Smokeless Tobacco: Never Alcohol Use Standard Drinks/Week Comments Not Currently 0 (1 standard drink = 0.6 oz pur e alcohol) Don? t drink [facility] Utilities Answer Date Recorded In [...] often do you attend chur ch or zoroastrianism services? More than 4 times per year 04/27/2022 Do you belong to any clubs o r organizations such as yarsanism groups, unions, fraternal or athletic groups, or [...] and heating? Not hard at all 04/27/2022 [facility] of Occupat ional Health - Occupational Stress [...] money to buy more. Never true 05/07/19 Within the past 12 months, t he [...] your living situation today? I have a [facility] place to live 05/07/2023 Education Answer Date Recorded What is the highest level of school you have completed or the highest degree you have received? 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 [address] [place] [phone] 10/16/2023 11:00 AM CDT Appointment Division of Gastroenterology in [place], [place] [address] [place] [phone] Marv Myrick M.D., M.P.H. [address] [place] [phone] Discharge Disposition: Home or Self Care 11/10/2023 8:00 AM CDT Appointment Department of Laboratory Medicine and Pathology, [facility] in [place], [place] [address] [place] [phone] Marv Myrick M.D., M.P.H. [address] [place] [phone] 11/10/2023 3:00 PM CDT Office Visit Division of Gastroenterology in [place], [place] [address] [place] [phone] Marv Myrick M.D., M.P.H. [address] [place] [phone] Scheduled Referrals Name Type Priority Associated Diagnoses Order Schedule Transplant - Surgery consult (clinic) Outpatient Referral Routine Hernia Inguinal Expected: 07/16/2023 (Approximate), Expires: 10/11/2024 documented as of this encounter Results * (ABNORMAL) CBC with Differential, Blood (08/12/2023 11:41 AM CDT) Pathologist [facility] Hemoglobin 11.4(L) 13.2 - 16.6 g/dL 08/12/2023 [...] Myrick M.D., M.P.H. LAB BLOO D ADD-ON [facility] [address] [place] [address], [facility] DTL [facility] 200 [place] [address] [facility] 200 [place] [address] * (ABNORMAL) Basic Metabolic Panel (08/12/2023 11:40 AM CDT) Potassium, S 3.5(L) 3.6 - 5.2 mmol/L [...] Myrick M.D., M.P.H. LAB BLOO D ADD-ON [facility] 200 [place] [address], [facility] D[facility] 200 [place] [address] * (ABNORMAL) Hepatic Function Panel (08/12/2023 11:40 [...] Myrick M.D., M.P.H. LAB BLOO D ADD-ON [facility] [address] [place] [address], [facility] [address] [place] [address] documented in this encounter Visit Diagnoses Diagnosis Hernia Inguinal- Primary Alcoholic Cirrhosis Of Liver With Ascites (HCC) documented in this encounter Care Teams Ditch Rider Relationship Specialty Start Date End Date Elsewhere, Pcp PCP - General Internal Medicine 08/19/21 documented as of this encounter
--- OUTSIDE RECORDS SUMMARY | 2023-09-12 06:12 | XMS_ITS | Encounter Summary ---
Author Organization [facility] Address [address] [place] [address] Care Team Providers Care Closed Circuit Screen Watcher Name Role Phone Elsewhere, Pcp Primary Care Provider Unavailabl e Reason for Referral * Outpatient (Routine) - Authorized Specialty Diagnoses / Procedures Referred By Santi t Referred To Contact Diagnoses Gastro-Esophageal Reflux Disease With Esophagitis Without Bleeding Secondary Esophageal Varices Without Bleeding (HCC) Hypertension Portal (HCC) Stricture Esophagus Procedures EGD (EsophagoGastroDuodenoscopy) Restricted Marv Myrick M.D., M.P.H. 200 [place] [phone] [facility] Referral ID Status Reason Start Date Expiration Date V isits Requested Visits Authorized [id number] Authorized 08/27/2023 08/26/2024 1 1 Encounter Details Date Type Department Care Team (Latest Contact Info) Description 08/27/2023 Orders Only Division of Gastroenterology in [place], [place] [address] [place] [phone] Fabiola Reyes M.D. [address] [place] [phone] Gastro-Esophageal Reflux Disease With Esophagitis Without Bleeding (Primary Dx); Secondary Esophageal Varices Without Bleeding (HCC); Hypertension Portal (HCC); Stricture Esophagus Social History Tobacco Use Types Packs/Day Years Used Date Smoking Tobacco: Never Smokeless Tobacco: Never Alcohol Use Standard Drinks/Week Comments Not Currently 0 (1 standard drink = 0.6 oz pur e alcohol) Don? t drink [facility] Utilities Answer Date Recorded In the past 12 months has e [employer], oil, or water [employer] threatened to shut off services in your [...] How often do you attend chur or mormonism services? More than 4 times per year 04/27/2022 Do you belong to any clubs o r organizations such as scientology groups, unions, fraternal or athletic groups, or [...] and heating? 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 [address] [place] [phone] 10/16/2023 11:00 AM CDT Appointment Division of Gastroenterology in [place], [place] [address] [place] [phone] Marv Myrick M.D., M.P.H. [address] [place] [phone] Discharge Disposition: Home or Self Care 11/10/2023 8:00 AM CDT Appointment Department of Laboratory Medicine and Pathology, [facility] in [place], [place] [address] [place] [phone] Marv Myrick M.D., M.P.H. [address] [place] [phone] 11/10/2023 3:00 PM CDT Office Visit Division of Gastroenterology in [place], [place] [address] [place] [phone] Marv Myrick M.D., M.P.H. [address] [place] [phone] Scheduled Orders Name Type Priority Associated Diagnoses Orde r Schedule EGD (EsophagoGastroDuodenosc opy) Restricted GI Routine Gastro-Esophageal Reflux Disease With Esophagitis Without Bleeding Secondary Esophageal Varices Without Bleeding (HCC) Hypertension Portal (HCC) Stricture Esophagus Expected: 09/26/2023, Expires: 11/26/2024 documented as of this encounter Visit Diagnoses Diagnosis Gastro-Esophageal Reflux Disease With Esophagitis Without Bleeding- Primary Secondary Esophageal Varices Without Bleeding (HCC) Hypertension Portal (HCC) Stricture Esophagus documented in this encounter Care Teams Closed Circuit Screen Watcher Relationship Specialty Start Date End Date Elsewhere, Pcp PCP - General Internal Medicine 08/19/21 documented as of this encounter
--- OUTSIDE RECORDS SUMMARY | 2023-09-12 06:12 | XMS_ITS | Encounter Summary ---
Author Organization [facility] Address [address] [place] [address] Care Team Providers Care Refrigeration Installer Name Role Phone Elsewhere, Pcp Primary Care Provider Unavailabl e Encounter Details Date Type Department Care Team (Latest Contact Info) Description 08/25/2023 8:09 AM CDT Anesthesia Event Division of Gastroenterology in [place], [place] [address] [place] [phone] Ken Franks APRN, DUST MIXER [address] [place] [phone] Anesthesia Record Procedure Summary Procedure Name Responsible Anesthesiologist Anesthesia Start Time Anesthesia Stop Time EGD (ESOPHAGEALGASTRODU ODENOSCOPY) Ken Franks APRN, DUST MIXER 08/25/23 0809 08/25/23 0927 Events Date Time Event Comment 08/25/2023 0809 An Start Machine/Equipme nt Checked Infection Precautions Followed Procedure/Site Verified NPO Status Verified Supine Standard ASA Monitors Applied 0811 An Induction 0814 An Intubation 0816 Proc Start 0819 Turnover to Proceduralist 0859 Proc Fin 0903 Turnover to ANE Staff 0917 Airway Removal Criteria Met 0917 Extubation/Airway Removed 0926 an stop data 0927 An End I completed my handoff to [...] mcg/mL 100 mcg lidocaine 2% (mg) injection 60 mg succinylcholine 20 mg/mL injection 120 m g ePHEDrine PF 5 mg/mL syringe injection 2 5 mg propofol 10 mg/mL infusion 448.5 mg propofol 10 mg/mL injection 160 mg Lactated Ringers Free Drip 700 mL * Agents No agents on file. * Blood No blood administrations on file. Lines, Drains, and Airways Type Details Placement Removal Wound 05/13/23; N; Incisio n; Hip; Anterior, Left; 09/04/23; 0856; Wound healed 05/13/23 0000 by Radha Hernandez RMarcusN. 09/04/23 0856 by Kamini Olivier, M.S.N., R.N., C.M.S.R.N. Wound 07/10/23; 1519; Punc ture; Abdomen; Lateral, Right, Upper; paracentesis site; 09/04/23; 0856; Wound healed 07/10/23 1519 by Kavitha Hamilton R.N. 09/04/23 0856 by Kamini Olivier, M.S.N., R.N., C.M.S.R.N. Peripheral IV Placement Date: 07/14; Placement Time: 25; Catheter Size: 20 G; Orientation: Right; Location: Forearm; Site Prep: Alcohol; Technique: Anatomical landmarks; Insertion Attempts: 1; Removal Date: 08/27/23; Removal Time: 1315; Removal Reason: Occluded 08/25/23 0026 by Aisha Sorto R.NMarcus 08/27/23 1316 by Molly Gutiérrez, R.N. ETT Placement Date: 07/14; Placement Time: 813 (created via procedure documentation); Mask Ventilation: Not attempted; Technique: Video laryngoscopy; Type: Standard ETT; Single Lumen Tube Size: 7 mm; Cuffed: Yes; Location: Oral; Grade View: Grade 1; Insertion Attempts: 1; Placement Verification: Bilateral breath sounds, Positive ETCO2, Symmetrical chest wall movement; Removal Date: 08/25/23; Removal Time: 91608/25/23 08 by Ken Franks APRN, CRNA 08/25/23 09 by Ken Franks APRN, CRNA documented in this encounter Social History Tobacco Use Types Packs/Day Years Used Date Smoking Tobacco: Never Smokeless Tobacco: Never Alcohol Use Standard Drinks/Week Comments Not Currently 0 (1 standard drink = 0.6 oz pur e alcohol) Don? t drink [facility] [employer] Answer Date Recorded In the past 12 months has e [employer], gas, oil, or water [employer] threatened to shut off services in your [...] often do you attend chur ch or sabianism services? More than 4 times per year 04/27/2022 Do you belong to any clubs o r organizations such as yazidism groups, unions, fraternal or athletic groups, or [...] and heating? 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 Responsible Provider: Ken Franks APRN, CRNA Anesthesia Type: general ASA Status: 4 - Emergent Anesthesia Type: general Last vitals Vitals Value Taken Time BP 95/62 08/25/23 0933 Temp Pulse 68 08/25/23 0940 Resp SpO2 93 % 08/25/23 0940 Vitals shown include unfiled device data. Please [...] status: euvolemic * Anesthesia Procedure Notes - Ken Franks APRN, CRNA - 08/25/2023 8:18 AM CDTAssociated Order(s): Airway Airway Date/Time: 08/25/2023 8:14 AM Performed by: Ken Franks APRN, CRNA Authorized by: Ken Franks APRN, CRNA Patient location during procedure: OR / Procedure Area PROCEDURE DETAILS: Mask difficulty assessment: not attempted Final airway type: video laryngoscope Laryngeal Manipulation: no Final best view of glottic structures - Cormack/Lehane Score: grade 1 ETT location: oral VL device: glide scope [place] scope blade size: 4 Tube size: 7 [...] no complications * Anesthesia Preprocedure Evaluation - Ken Franks APRN, CRNA - 08/25/2023 8:02 AM CDT Preprocedure Anesthesia & H&P Assessment Procedure Summary Date/Time: 08/25/23 0800 Scheduled providers: Keny Gtz M.D., M.H.PJames Procedure: EGD (ESOPHAGEALGASTRODUODENOSCOPY) Location: Division of Gastroenterology in [place], [place] Pertinent components of the patient's history including [...] Hypertension Portal (HCC) HEME (+) Thrombocytopenia (HCC) OBJECTIVE PHYSICAL EXAMINATION Airway (HEENT) Mallampati: I TM Distance: >3 FB Neck ROM: Full Mouth Opening: >3 cm Upper Lip Bite Test Class: I Cardiovascular Rhythm: Regular Rate: Normal Cardiovascular Assessment: cardiovascular normal Functional Capacity: >4 METS Pulmonary Pulmonary Assessment: Clear General / Constitutional Constitutional Assessment: Normal General State of Health:: healthy appearing and calm Neurological Neurologic Assessment: alert and alert and oriented x 3 Dental Dental Assessment: dentition intact ASSESSMENT / PLAN ANESTHESIA PLAN ASA: 4 - Emergent Anesthesia Plan: general Patient seen and allergies reviewed, anesthesia plan and risks discussed directly with patient /legal guardian or through an sales & service associate. Risks/Benefits/Alternatives of Blood transfusion discussed with patient [...] 10:30 AM CDT Office Visit Clemente [facility] in [place], [place] [address] [place] [phone] Elen Gomes M.D., Ph.D. [address] [place] [phone] 10/16/2023 11:00 AM CDT Appointment Division of Gastroenterology in [place], [place] [address] [place] [phone] Marv Myrick M.D., M.P.H. [address] [place] [phone] Discharge Disposition: Home or Self Care 11/10/2023 8:00 AM CDT Appointment Department of Laboratory Medicine and Pathology, [facility] in [place], [place] [address] [place] [phone] Marv Myrick M.D., M.P.H. [address] [place] [phone] 11/10/2023 3:00 PM CDT Office Visit Division of Gastroenterology in [place], [place] [address] [place] [phone] Marv Myrick M.D., M.P.H. [address] [place] [phone] documented as of this encounter Procedures Procedure Name Priority Date/Time Associated Diagnosis Comments LDA ANE ENDOTRACHEAL AIRWAY Routine 08/25/2023 8:14 AM CDT documented in this encounter Results * LDA ANE ENDOTRACHEAL AIRWAY (08/25/2023 8:14 [...] ETT location: oral VL device: glide scope [place] scope blade size: 4 Tube size: 7 [...] Ken Franks APRN, CRNA ANESTHESIA LUCIA SUH documented in this encounter Visit Diagnoses Not on filedocumented in this encounter Administered Medications Inactive Administered Medications - up to 3 most recent administrations Medication Order MAR Action Action Date Dose Rate Site ePHEDrine (PF) injection intravenous, As needed, Starting on Thu08/25/23 at 0820, Anesthesia Intra-op Given 08/25/2023 8:28 AM CDT 10 mg Given 08/25/2023 8:20 AM CDT 15 mg fentaNYL injection (SUBLIMAZE) intravenous, As needed, Starting on Thu08/25/23 at 0815, Anesthesia Intra-op Given 08/25/2023 8:20 AM CDT 50 mcg Given 08/25/2023 8:12 AM CDT 50 mcg Lactated Ringer's intravenous, Continuous Infusion: Per Instructions PRN, Starting on Thu08/25/23 at 0812, Anesthesia Intra-op New Bag 08/25/2023 8:35 AM CDT New Bag 08/25/2023 8:12 AM CDT lidocaine (PF) (cardiac) injection intravenous, As needed, Starting on Thu08/25/23 at 0812, Anesthesia Intra-op Given 08/25/2023 8:12 AM CDT 60 mg propofol 10 mg/mL infusion (DIPRIVAN) intravenous, Continuous Infusion: Per Instructions PRN, Starting on Thu08/25/23 at 0812, Anesthesia Intra-op Rate/Dose Change 08/25/2023 8:55 AM CDT 75 mcg/kg/min 29.25 mL/hr New Bag 08/25/2023 8:12 AM CDT 150 mcg/kg/min 58.5 mL/h r propofoL injection (DIPRIVAN) intravenous, As needed, Starting on Thu08/25/23 at 0815, Anesthesia Intra-op Given 08/25/2023 8:12 AM CDT 160 mg succinylcholine (PF) injection (ANECTINE) intravenous, As needed, Starting on Thu08/25/23 at 0815, Anesthesia Intra-op Given 08/25/2023 8:12 AM CDT 120 mg documented in this encounter Care Teams Refrigeration Installer Relationship Specialty Start Date End Date Elsewhere, Pcp PCP - General Internal Medicine 08/19/21 documented as of this encounter
--- OUTSIDE RECORDS SUMMARY | 2023-09-12 06:12 | XMS_ITS | Encounter Summary ---
Author Organization [facility] Address [address] [place] [address] Care Team Providers Care Building Maintenance Custodian Name Role Phone Elsewhere, Pcp Primary Care Provider Unavailabl e Reason for Referral * Outpatient (Routine) - Closed Specialty Diagnoses / Procedures Referred By Contac t Referred To Contact Diagnoses Hepatitis Autoimmune (HCC) Cirrhosis Nonalcoholic (HCC) Ascites Chronic Procedures US Paracentesis with Imaging Guidance Marv Myrick M.D., M.P.H. [address] [place] [address] [facility] Referral ID Status Reason Start Date Expiration Date Visits Re quested Visits Authorized [id number] Closed 07/07/2023 07/06/2024 1 1 * Outpatient (Routine) - Closed Specialty Diagnoses / Procedures Referred By Contact Referred To Contact Gastroenterology and Hepatology Diagnoses Hepatitis Autoimmune (HCC) Cirrhosis Nonalcoholic (HCC) Ascites Chronic Marv Myrick M.D., M.P.H. [address] [place] [address] [facility] Referral ID Status Reason Start Date Expiration Date Visits Re quested Visits Authorized [id number] Closed 07/07/2023 01/05/2025 1 1 Reason for Visit * Reason Onset Date Comments Hepatobiliary 07/07/2023 Order Request 07/07/2023 Encounter Details Date Type Department Care Team (Latest Contact Info) Description 07/07/2023 Clinical Communication Division of Gastroenterology in [place], [place] [address] [place] [address] Marv Myrick M.D., M.P.H. [address] [place] [phone] Hepatobiliary; Order Request Social History Tobacco Use Types Packs/Day Years Used Date Smoking Tobacco: Never Smokeless Tobacco: Never Alcohol Use Standard Drinks/Week Comments Not Currently 0 (1 standard drink = 0.6 oz pur e alcohol) Don? t drink [facility] [employer] Answer Date Recorded In the past 12 months has [employer], gas, oil, or water [employer] threatened to shut off services in your [...] often do you attend chur ch or jewish services? More than 4 times per year 04/27/2022 Do you belong to any clubs o r organizations such as moravian groups, unions, fraternal or athletic groups, or [...] and heating? Not hard at all 04/27/2022 [facility] of Occupat ional [facility] - Occupational Stress Questionnaire Answer Date Recorded [...] your living situation today? I have a [facility] place to live 05/07/2023 Education Answer Date Recorded What is the highest level of school you have completed or the highest degree you have received? 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 [address] [place] [phone] 10/16/2023 11:00 AM CDT Appointment Division of Gastroenterology in [place], [place] [address] [place] [phone] Marv Myrick M.D., M.P.H. [address] [place] [phone] Discharge Disposition: Home or Self Care 11/10/2023 8:00 AM CDT Appointment Department of Laboratory Medicine and Pathology, [facility] in [place], [place] [address] [place] [address] Marv Myrick M.D., M.P.H. [address] [place] [phone] 11/10/2023 3:00 PM CDT Office Visit Division of Gastroenterology in [place], [place] [address] [place] [address] Marv Myrick M.D., M.P.H. [address] [place] [address] Scheduled Referrals Name Type Priority Associated Diagnoses Order Schedule Gastroenterology and Hepatology office visit (clinic) Outpatient Referral Routine Hepatitis Autoimmune (HCC) Cirrhosis Nonalcoholic (HCC) Ascites Chronic Expected: 07/07/2023, Expires: 10/05/2024 documented as of this encounter Results * US Paracentesis with [...] Ultrasound-guided paracentesis. EP Marv Myrick M.D., M.P.H. [facility] P ROCEDURES documented in this encounter Visit Diagnoses Diagnosis Hepatitis Autoimmune (HCC)- Primary Cirrhosis Nonalcoholic (HCC) Ascites Chronic Hepatitis Autoimmune (HCC) Cirrhosis Nonalcoholic (HCC) Ascites Chronic documented in this encounter Care Teams Building Maintenance Custodian Relationship Specialty Start Date End Date Elsewhere, Pcp PCP - General Internal Medicine 08/19/21 documented as of this encounter
--- OUTSIDE RECORDS SUMMARY | 2023-09-12 06:12 | XMS_ITS | Encounter Summary ---
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 [address] [place] [phone] [facility] Referral ID Status Reason Start Date Expiration Date Visits Re quested Visits Authorized [id number] Closed 05/14/2023 05/13/2024 1 1 Encounter Details Date Type Department Care Team (Latest Contact Info) Description 08/12/2023 10:14 AM CDT - 08/12/2023 11:32 AM CDT Hospital Encounter Department of Radiology, [facility], in [place], [place] [address] [place] [address] Whitney Feliciano P.A.-C., P.A. 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 t drink [facility] Utilities Answer Date Recorded In the past 12 months has [employer], gas, oil, or water [employer] threatened to shut off services in your [...] week 04/27/2022 How often do you attend [facility] or rastafarian services? More than 4 times per year [...] your living situation today? I have a [facility] place to live 05/07/2023 Education Answer Date Recorded What is the highest level of school you have completed or the highest degree you have received? 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 [address] [place] [phone] 10/16/2023 11:00 AM CDT Appointment Division of Gastroenterology in [place], [place] [address] [place] [phone] Marv Myrick M.D., M.P.H. [address] [place] [phone] Discharge Disposition: Home or Self Care 11/10/2023 8:00 AM CDT Appointment Department of Laboratory Medicine and Pathology, [facility] in [place], [place] [address] [place] [phone] Marv Myrick M.D., M.P.H. [address] [place] [phone] 11/10/2023 3:00 PM CDT Office Visit Division of Gastroenterology in [place], [place] [address] [place] [phone] Marv Myrick M.D., M.P.H. 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
--- OUTSIDE RECORDS SUMMARY | 2023-09-12 06:12 | XMS_ITS | Encounter Summary ---
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 [address] [place] [phone] 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 [address] [place] [phone] [facility] Referral ID Status Reason Start Date Expiration Date Visits Re quested Visits Authorized [id number] Closed 05/14/2023 05/13/2024 1 1 Encounter Details Date Type Department Care Team (Latest Contact Info) Description 08/12/2023 10:14 AM CDT - 08/12/2023 11:32 AM CDT Hospital Encounter Department of Radiology, [facility], in [place], [place] [address] [place] [address] Whitney Feliciaon P.A.-Mendy., P.A. 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 t drink [facility] Utilities Answer Date Recorded In the past 12 months has [employer], gas, oil, or water [employer] threatened to shut off services in your [...] How often do you attend [facility] or hinduism services? More than 4 times per year 04/27/2022 Do you belong to any clubs o r organizations such as rastafari groups, unions, fraternal or athletic groups, or [...] and heating? Not hard at all 04/27/2022 [facility] of Occupat ional Health - Occupational Stress [...] your living situation today? I have a [place] place to live 05/07/2023 Education Answer Date Recorded What is the highest level of school you have completed or the highest degree you have received? 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 [address] [place] [phone] 10/16/2023 11:00 AM CDT Appointment Division of Gastroenterology in [place], [place] [address] [place] [phone] Marv Myrick M.D., M.P.H. [address] [place] [phone] Discharge Disposition: Home or Self Care 11/10/2023 8:00 AM CDT Appointment Department of Laboratory Medicine and Pathology, [facility] in [place], [place] [address] [place] [address] Marv Myrick M.D., M.P.H. [address] [place] [phone] 11/10/2023 3:00 PM CDT Office Visit Division of Gastroenterology in [place], [place] [address] [place] [address] Marv Myrick M.D., M.P.H. 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
--- OUTSIDE RECORDS SUMMARY | 2023-09-12 06:12 | XMS_ITS | Encounter Summary ---
Author Organization [facility] Address [address] [place] [address] Care Team Providers Care Change Management Administrator Name Role Phone Elsewhere, Pcp Primary Care Provider Unavailabl e Reason for Referral * MRI/CAT/PET Scan (Routine) - Authorized Specialty Diagnoses / Procedures Referred By Santi segundo Referred To Contact Radiology Diagnoses Hernia Inguinal Bilateral Procedures CT Abdomen Pelvis with IV Contrast Elen Gomes M.D., Ph.D. [address] [place] [phone] [facility] Referral ID Status Reason Start Date Expiration Date V isits Requested Visits Authorized [id number] Authorized 08/12/2023 08/11/2024 1 1 Reason for Visit * Transplant (Routine) - Closed Specialty Diagnoses / Procedures Referred By Contjovani t Referred To Contact Transplant Diagnoses Hernia Inguinal Marv Myrick M.D., M.P.H. [address] [place] [phone] [facility] Referral ID Status Reason Start Date Expiration Date Visits Re quested Visits Authorized [id number] Closed 07/13/2023 01/11/2025 1 1 Encounter Details Date Type Department Care Team (Latest Contact Info) Description 08/12/2023 1:30 PM CDT [facility] [place], [place] [address] [place] [address] Elen Gomes M.D., Ph.D. 200 [place] [phone] Hernia Inguinal Bilateral (Primary Dx); Hernia Inguinal Social History Tobacco Use Types Packs/Day Years Used Date Smoking Tobacco: Never Smokeless Tobacco: Never Alcohol Use Standard Drinks/Week Comments Not Currently 0 (1 standard drink = 0.6 oz pur e alcohol) Don? t drink [facility] Utilities Answer Date Recorded In the past 12 months has e [employer], gas, oil, or water [employer] threatened to shut off services in your [...] often do you attend chur ch or anglican services? More than 4 times per year [...] and heating? 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 - 08/12/2023 1:30 PM CDT REFERRAL SOURCE Marv Myrick M.D. REASON FOR CONSULT Mr. Jennings is a 72-year-old man with a long standing autoimmune hepatitis- related cirrhosis. HISTORY OF PRESENT ILLNESS He has been followed by Dr. Myrick for many years. He is referred to us with an increasingly symptomatic umbilical hernia and groin pain. He has a known umbilical hernia, which has gotten more symptomatic over the past year or so as his ascites got a little worse. Regarding the ascites, he is currently on diuretics, but needed a paracentesis last month. The groin issue is a little more complicated. He was told that he has a hydrocele in the past. Reportedly he was seen by Urology and was notoffered any operative intervention given his underlying cirrhosis. He is not quite sure whether he has a hernia or not, but he wanted to be seen for that as well. PHYSICAL EXAMINATION Abdomen: Soft, nontender, nondistended. He indeed has a small umbilical hernia which is tender to touch. Regarding the groin, he has a bulge above the scrotum, bilaterally. This is quite painful to him and I was not able to do a good physical examination given the pain. ASSESSMENT / PLAN #1 Umbilical hernia and question of inguinal hernia versus hydrocele in a man with cirrhosis It is quite clear to me that Mr. Jennings is very symptomatic and these issues are affecting his quality of life. To delineate the inguinal anatomy better I would like to proceed with a CT scan of the pelvis. This would definitely show us whether he has an inguinal hernia or not. If he has just a hydrocele, I would then contact our Urology colleagues to see if they could address this as I address his umbilical hernia in the OR. I talked about the risk of the surgery given his underlying cirrhosis. I also talked to him about the need for leaving a drain in the abdomen with either of the surgeries for awhile to control his ascites. I will follow up with the CT results and given him a call when those are available. Answered all the questions. Elen Gomes M.D., Ph.D. CT CT Job ID: [id number] documented in this encounter Plan of Treatment Upcoming Encounters Date Type Department Care Team (Latest Contact Info) Description 09/17/2023 10:30 AM CDT [facility] in [place], [place] [address] [place] [phone] Elen Gomes M.D., Ph.D. [address] [place] [phone] 10/16/2023 11:00 AM CDT Appointment Division of Gastroenterology in [place], [place] [address] [place] [phone] Marv Myrick M.D., M.P.H. [address] [place] [phone] Discharge Disposition: Home or Self Care 11/10/2023 8:00 AM CDT Appointment Department of Laboratory Medicine and Pathology, [facility], in [place], [place] [address] [place] [phone] Marv Myrick M.D., M.P.H. [address] [place] [phone] 11/10/2023 3:00 PM CDT Office Visit Division of Gastroenterology in [place], [place] [address] [place] [address] Marv Myrick M.D., M.P.H. [address] [place] [address] Scheduled Orders Name Type Priority Associated Diagnoses Orde r Schedule CT Abdomen Pelvis with IV Contrast Imaging RAD - Routine (most inpatients and all outpatients) Hernia Inguinal Bilateral Expected: 08/12/2023, Expires: 11/11/2024 documented as of this encounter Visit Diagnoses Diagnosis Hernia Inguinal Bilateral- Primary Hernia Inguinal documented in this encounter Care Teams Change Management Administrator Relationship Specialty Start Date End Date Elsewhere, Pcp PCP - General Internal Medicine 08/19/21 documented as of this encounter
--- OUTSIDE RECORDS SUMMARY | 2023-09-12 06:12 | XMS_ITS | Encounter Summary ---
Author Organization [facility] Address [address] [place] [phone] Care Team Providers Care Technician Plant And Maintenance Name Role Phone Elsewhere, Pcp Primary Care Provider Unavailabl e Reason for Visit * Outpatient (Routine) - Closed Specialty Diagnoses / Procedures Referred By Contact Referred To Contact Gastroenterology and Hepatology Diagnoses Hepatitis Autoimmune (HCC) Cirrhosis Nonalcoholic (HCC) Ascites Chronic Marv Myrick M.D., M.P.H. [address] [place] [phone] [facility] Referral ID Status Reason Start Date Expiration Date Visits Re quested Visits Authorized [id number] Closed 07/07/2023 01/05/2025 1 1 Encounter Details Date Type Department Care Team (Latest Contact Info) Description 07/13/2023 12:30 PM CDT Virtual Visit Division of Gastroenterology in [place], [place] [address] [place] [phone] Marv Myrick M.D., M.P.H. [address] [place] [phone] Hepatitis Autoimmune (HCC); Cirrhosis Nonalcoholic (HCC); Ascites Chronic Social History Tobacco Use Types Packs/Day Years Used Date Smoking Tobacco: Never Smokeless Tobacco: Never Alcohol Use Standard Drinks/Week Comments Not Currently 0 (1 standard drink = 0.6 oz pur e alcohol) Don? t drink [facility] Utilities Answer Date Recorded In [...] often do you attend chur ch or shinto services? More than 4 times per year 04/27/2022 Do you belong to any clubs o r organizations such as baptism groups, unions, fraternal or athletic groups, or [...] and heating? Not hard at all 04/27/2022 [facility] - Occupational [...] your living situation today? I have a [facility] place to live 05/07/2023 Education Answer Date Recorded What is the highest level of school you have completed or the highest degree you have received? Bachelor's degree (e.g., BA, AB, BS) 11/11/2020 Sex and Gender Information Value Date Recorded Sex Assigned at Male 02/12/2021 6:18 PM [employer] Gender Identity Male 11/11/2020 11:30 AM CDT Sexual Orientation Straight 11/11/2020 11 :30 AM CDT documented as of this encounter Progress Notes * Marv Myrick M.D., M.P.H. - 07/13/2023 12:30 PM CDT SUBJECTIVE Chief Complaint/Reason for Visit Telephone follow-up History of Present Illness: Mr Jennings underwent paracentesis last Thursday where 1.8 L of ascites was removed. Cell count was negative for SBP. He states that there is less pressure in his abdomen now Unfortunately, he continues to struggle with left groin pain and scrotal swelling upon standing. [place] a Urologist elsewhere and General Surgeon at [facility] in [place], [place]. He was told that an inguinal hernia may also now be involved with his left groin discomfort. Repair of his inguinal hernia and umbilical hernia could be done in his opinion but an increased risk of complications related to decompensated cirrhosis make his case less straightforward ASSESSMENT / PLAN 1. Symptomatic umbilical and inguinal hernias 2. Moderate left hydrocele 3. Decompensated cirrhosis [facility] in April 2023 By history, it would appear that his worsening left groin pain and scrotal swelling when upright and walking are related to the left inguinal hernia rather than the hydrocele alone I recommended repeat labs to reassess MELD score and a referral visit with Dr Gomes from our Liver Transplant Surgery group to consider operative repair of the hernias. Mr Jennings understands that hisascites would need to be under control if an operation is offered. documented in this encounter Plan of Treatment Upcoming Encounters Date Type Department Care Team (Latest Contact Info) Description 09/17/2023 10:30 AM CDT [facility] [place] [place] [address] [place] [phone] Elen Gomes M.D., Ph.D. [address] [place] [phone] 10/16/2023 11:00 AM CDT Appointment Division of Gastroenterology in [place], [place] [address] [place] [phone] Marv Myrick M.D., M.P.H. [address] [place] [phone] Discharge Disposition: Home or Self Care 11/10/2023 8:00 AM CDT Appointment Department of Laboratory Medicine and Pathology, [facility] in [place], [place] [address] [place] [phone] Marv Myrick M.D., M.P.H. [address] [place] [phone] 11/10/2023 3:00 PM CDT Office Visit Division of Gastroenterology in [place], [place] [address] [place] [phone] Marv Myrick M.D., M.P.H. [address] [place] [phone] documented as of this encounter Visit Diagnoses Diagnosis Hepatitis Autoimmune (HCC) Cirrhosis Nonalcoholic (HCC) Ascites Chronic documented in this encounter Care Teams Technician Plant And Maintenance Relationship Specialty Start Date End Date Elsewhere, Pcp PCP - General Internal Medicine 08/19/21 documented as of this encounter
--- OUTSIDE RECORDS SUMMARY | 2023-09-12 06:12 | XMS_ITS | Encounter Summary ---
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 [address] [place] [phone] Zachary Romano M.D. [address] [place] [phone] Roya Aldridge M.D. [address] [place] [phone] Jovani Salomon M.D. [address] [place] [phone] Gypsy Lu M.D. [address] [place] [phone] Amol White M.D. [address] [place] [phone] Xin Rai M.B.B.S. [address] [place] [phone] Pneumonia (Primary Dx); Food In Esophagus Causing Other Injury Initial; Acidosis Lactic Discharge Disposition: Home or Self Care Social History Tobacco Use Types Packs/Day Years Used Date Smoking Tobacco: Never Smokeless Tobacco: Never Alcohol Use Standard Drinks/Week Comments Not Currently 0 (1 standard drink = 0.6 oz pur e alcohol) Don? t drink [facility] Utilities Answer Date Recorded In the past 12 months has [employer], gas, oil, or water [employer] threatened to shut off services in your [...] 04/27/2022 How often do you attend [facility] or baptism services? More than 4 times per year 04/27/2022 Do you belong to any clubs o r organizations such as oriental orthodox groups, unions, fraternal or athletic groups, or [...] and heating? 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 Gender Identity Male 11/11/2020 11:30 AM CDT Sexual Orientation Straight 11/11/2020 11 :30 AM CDT documented as of this encounter Last Filed Vital Signs Vital Sign Reading Time Taken Comments Blood Pressure 112/73 08/28/2023 1:37 AM CDT Pulse 75 08/28/2023 11:48 AM CDT Temperature 36.8 ??C (98.2 ??F) 08/28/2023 11:48 AM C DT Respiratory Rate 20 08/28/2023 11:48 AM CDT Oxygen Saturation 98% 08/28/2023 11:48 AM CDT Inhaled Oxygen Concentration - - Weight 68.7 kg (151 lb 7.3 oz) 08/28/2023 5:00 A M CDT Height 172.7 cm (5' 8) 08/27/2023 10:52 AM CDT Body Mass Index 23.03 08/27/2023 10:52 AM CDT documented in this encounter Discharge Summaries * Clemente Baer M.D. - 08/28/2023 10:50 AM CDT DISCHARGE SUMMARY BRIEF OVERVIEW Hospital: [facility] Discharge Provider: Amol White M.D. Primary Team: T Gastroenterology B Primary Care Providers: Elsewhere, Pcp (General) No address on file Primary Care Provider Phone Number: None Primary Care Provider Fax Number: None Admission Date: 08/24/2023 Discharge Date: 08/28/2023 PRINCIPAL DIAGNOSIS Pneumonitis Due To Inhalation Of Food And Vomit (HCC) SECONDARY DIAGNOSES Principal Problem: Pneumonitis Due To Inhalation Of Food And Vomit (HCC) Active Problems: Diabetes Mellitus Type 2 (HCC) Hepatitis Autoimmune (HCC) Hypertension Portal (HCC) Secondary Esophageal Varices Without Bleeding (HCC) Unspecified Cirrhosis Of Liver (HCC) Stricture Esophagus Thrombocytopenia (HCC) Sepsis (HCC) Resolved Problems: Pneumonia DISCHARGE DISPOSITION Home or Self Care [1] OUTPATIENT FOLLOW UP Scheduled Appointments 11/10/2023 8:00 AM LAB BLOOD MARCY[facility] 11/10/2023 3:00 PM Marv Myrick M.D., M.P.H. Gastroenterology and Hepatology For appointment details refer to your Patient Appointment Guide. TEST RESULTS PENDING AT DISCHARGE Pending Labs Order Current Status Bacteria / Jenna Culture, Blood # 2 Preliminary result Bacteria / Jenna Culture, Blood #1 Preliminary result Bacteria / Jenna Culture, Blood #1 Preliminary result Bacteria / Jenna Culture, Blood #2 Preliminary result DETAILS OF HOSPITAL STAY REASON FOR ADMISSION Acidosis Lactic Pneumonia Food In Esophagus Causing Other Injury Initial Sepsis (HCC) HOSPITAL COURSE Mr. 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 On initial presentation, patient was normotensive, afebrile, and on RA. GI was consulted and patient underwent EGD on 08/24 with successful removal of the food bolus. Unfortunately, following procedure, patient became increasingly hypoxemic and was noted to have increased lactate to 9.95. CXR was then obtained, which was concerning for potential aspiration pneumonia. He was admitted to the ICU for further management, and was on 4L NC and pressors intermittently.Of note, his blood cultures grew C perfringens in 1/2 bottles of 1/[address] abdomen/pelvis was done to look for other sources, and this was unrevealing. Infectious Disease was consulted and recommended IV ceftriaxone and Flagyl, for a total duration treatment of 14 days. Upon discharge, this was transitioned to oral Levaquin and Flagyl. He was discharged on 08/27 to home. Medication changes: Levaquin 750mg stop date 09/07 Metronidazole 500mg PO TID - stop date 09/07 Issues to followup on: Repeat EGD for dilation in 4 weeks F/u with Dr. Reynoso on 11/09 (note - CT abdomen was done inpatient and this was cancelled) Primary care - followup on further diabetes medication titration. While inpatient his blood sugars were consistently >130 and his Jardiance was held CONSULTS ORDERED DURING THIS ADMISSION IP CONSULT TO INFECTIOUS DISEASES CONDITION AT DISCHARGE stable Discharge instructions were provided to the patient and caregiver(s). Total time spent in discharge services today: 25 minutes. * Destiney Rascon M.D. - 08/27/2023 10:24 AM CDT RST [facility] Medicine 1 TRANSFER NOTE HOSPITAL COURSE Mr. 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 ED Course Patient initially presented to the ED in the evening of 08/23 with complaints of being uncomfortable,unable to swallow since eating steak around 1700 that day. Patient also complained of hiccups, belching, and nausea. On initial presentation, patient was normotensive with BP 107/70, afebrile, satting well on room air. GI was consulted and patient underwent EGD on 08/24 with successful removal of thefood bolus. Unfortunately, following procedure, patient became increasingly hypoxemic and was noted to have increased lactate to 9.95. CXR was then obtained, which was concerning for potential aspiration pneumonia. Infectious workup was initiated and patient was then given 2L IVF, initiated on ceftriaxone and flagyl, and admitted to the ICU for further management. ICU Course On arrival to the ICU on the evening of 08/24, patient remained hypoxemic with 4L NC oxygen requirement, but this was quickly weaned to room air. Blood pressure on arrival was stable with MAPs in the 65-70 range. Patient had no acute complaints of chest pain, infectious symptoms. Patient did not initially have any pressor requirements, but on the morning of 08/25, pressures did decrease and norepinephrine was initiated. Blood cultures obtained in the ED turned positive for c perfringens and gram positive cocci. Infectious disease was consulted, Vancomycin was initiated, but cultures subsequently showed contaminant with staph epidermidis. Patient remained stable and pressors were weaned overnight on 08/25. Antibiotics were transitioned toAugmentin. Given clinical stability and lack of ICU-level needs, patient was transferred to the GI service on 08/25. For additional details regarding today's plan, physical exam, please see the note by Dr. Kirk Rm dated today, 08/26/23. #1 Diabetes Mellitus Type 2 (HCC) #2 Hepatitis Autoimmune (HCC) #3 Hypertension Portal (HCC) #4 Secondary Esophageal Varices Without Bleeding (HCC) #5 Unspecified Cirrhosis Of Liver (HCC) #6 Stricture Esophagus #7 Thrombocytopenia (HCC) #8 Sepsis (HCC) #9 Pneumonitis Due To Inhalation Of Food And Vomit (HCC) To Do: -Continue antibiotics for completion of five day course. Patient is currently continued on Augmentin. -Patient has not had a BM since admission. TID lactulose has been re-initiated. Please continue to monitor. -Please continue aspiration precautions, mechanical soft diet documented in this encounter Discharge Instructions * Discharge Instructions* Kirk Gordillo - 08/28/2023 6:55 AM CDT You were discharged from the [facility] Gastroenterology B Service. Please identify this service name if you call with questions after hospitalization. * Attachments The following attachments cannot be sent through Care Everywhere. * Metronidazole (By mouth) (Nepalese) * Polyethylene Glycol 3350 (By mouth) (Nepalese) * Senna (By mouth) (Nepalese) documented in this encounter Medications at Time [...] (two) times a day. 30 tablet 08/28/2023 levoFLOXacin (LEVAQUIN) 750 mg tablet Take 1 [...] as of this encounter Progress Notes * Clemente Baer M.D. - 08/28/2023 10:44 AM CDT RST Gastroenterology B PROGRESS NOTE SUBJECTIVE Mr. Rodriguez appears well this morning. He was no acute concerns. I have reviewed the current medication list. OBJECTIVE VITAL SIGNS Temperature: [36.9 ??C-37.6 ??C] 37 ??C Heart Rate: [63-77] 74 Resp Rate: [17-23] 23 Blood Pressure: (100-112)/(70-73) 112/73 SpO2: [93 %-98 %] 96 % Height: [172.7 cm] 172.7 cm Weight: [67.3 kg-68.7 kg] 68.7 kg BSA (Calculated - sq m): [1.8 sq meters] 1.8 sq meters BMI (Calculated): [22.6 kg/m??-23 kg/m??] 23 kg/m?? Pulse Rate: [64-79] 74 I/O 08/25 0000 08/25 23508/26 0000 08/27 2359 P.O. 430 Crystalloid Bolus 1010 Continuous Medications 251.6 29.5 Intermittent Medications 650 300 Total Intake(mL/kg) 2341.6 (35.6) 329.5 (4.9) Urine (mL/kg/hr) 1415 (0.9) 920 (0.6) 200 (0.3) Stool 0 0 Total Output 1415 920 200 Net +926.6 -590.5 -200 Unmeasured Stool Occurrence 1 x 2 x PHYSICAL EXAM General: Alert, oriented, in no acute distress HEENT: Moist mucous membranes. Anicteric sclera. EOM intact. No cervical lymphadenopathy CV: regular rate and rhythm without murmors/rubs/gallups Resp: crackles in lower lung guardado bilaterally Abdomen: soft, nontender to palpation. Umbilical hernia present. No guarding or rebound tenderness.Normoactive bowel sounds Extremities: trace LE edema Neuro: A/O x4, no focal neurological deficits Psych: appropriate mood and affect DIAGNOSTICS I have personally reviewed laboratory data, cultures, imaging, and ECGs since admission, with espana findings discussed below in the assessment and plan. ASSESSMENT / PLAN Niko Rodriguez is a 72 y.o. male with a past medical history of autoimmune hepatitis with cirrhosis, esophageal varices, and thrombocytopenia with previous variceal band ligation in 2020. Hepresents after food impaction in the setting of post band ligation stricture. He presents after eating steak on 08/24 he had a food impaction. He then had aspiration pneumonia versus pneumonitis and had a brief ICU stay for a small pressor requirement. He was doing well. We will discharge on 2 weeks of antibiotics. He asked me to route his CT scan toDr. Gomes and Dr. Ricci and I will do so, but let him know that given the bacteremia we may have to wait a little while before a hernia repair. Repeat EGD in 4 weeks, f/u with Dr. Myrick in October. # Food impaction # History of esophageal strictures from variceal banding # Autoimmune hepatitis # Cirrhosis # Portal HTN with esophageal varices # Thrombocytopenia # GERD # Constipation Protonix 40mg BID Lactulose 10g oral - titrate to 3bm daily Miralax daily, senna 2 tablets BID Hold home eplerenone 100mg given HoTN Hold home lasix 40mg given HoTN Followup with GI with EGD in 4w for further dilation # Aspiration pneumonitis # clostridium perfringens bacteremia # Sepsis -resolved - Blood cultures - 08/25 - collected - 08/24 - staph epi 1/2 bottles, 1/2 sets - clostridium perfringens 1/2 bottles, 1/2 sets Sputum cultures pending Per Id, tentative plan (which we will finalize tomorrow) Inpatient IV ceftriaxone IV flagyl Outpatient Levaquin Flagyl 14d total course (stop date 09/07) Mechanical soft diet PRN oxygen Duonebs PRN CT abdomen/pelvis per IFD # T2DM # HTN # HLD # History of DVT Glargine 5u Sliding scale insulin Hold home jardiance and metformin Crestor 20mg # BPH Remove nicholson PRN bladder scans PRN I/O cath Current Activity/Mobility: BMAT Level 4 (Able to stand and walk; needs staff assist if fall risk factors identified) Diet: soft mechanical diet Tubes/lines: PIV VTE prophylaxis: heparin Code status: Full Code Disposition: Home with expected discharge date Surrogate Decision Maker: Spouse, Aleksandra Stable to discharge criteria (not met): discharge IV antibiotic plans Patient will be staffed with Dr. White tomorrow. Clemente Baer PGY-2, Internal Medicine Associated attestation - Amol White M.D. - 08/28/2023 10:50 AM CDT I saw and evaluated the patient, participating in the espana portions of the service. I reviewed the resident/fellow???s note. I agree with the resident/fellow???s findings and plan. Patient transferred from ICU after complications related to a food impaction and aspiration pneumonitis. He is doing well this morning. We have an antibiotic plan. He is tolerating a diet and is comfortable. He can be dismissed with follow up with Dr. Myrick with a repeat EGD to continue to dilate the esophageal stricture. * Alannah Alvarez APRN, NapoleonNStacy., M.S.N. - 08/28/2023 9:09 AM CDT INFECTIOUS DISEASE RESIDENT PROGRESS NOTE Brief summary Mr. Rodriguez is a 72 yo M admitted for sepsis secondary to aspiration pneumonia. Past medical historysignificant for autoimmune hepatitis with esophageal varices, ascites, T2DM, esophageal strictures,DVT 2021, and aspiration event in Oct 2022. Blood cultures initially showed Clostridia perfringens bacteremia and staph epi, likely contamination, in setting of aspiration pneumonia and recent EGD for food impaction. He required norepinephrine infusion which has since been weaned off. He was transferred to the medicine floor and is preparing for discharge from the hospital. SUBJECTIVE Niko Rodriguez is resting comfortably in bed. He denies any pain, shortness of breath, or discomfort. He is off all supplemental oxygen and off all vasopressors. He reports feeling well after adequate sleep. OBJECTIVE VITAL SIGNS Temperature: [36.8 ??C-37.6 ??C] 37 ??C Heart Rate: [63-77] 74 Resp Rate: [16-26] 23 Blood Pressure: (100-116)/(53-73) 112/73 SpO2: [93 %-98 %] 96 % Pulse Rate: [64-79] 74 Admission Weight: 65 kg Current Weight: 68.7 kg PHYSICAL EXAM Vitals and nursing note reviewed. Constitutional Appearance: Normal appearance. He is not ill-appearing. HENT Head: Normocephalic. Nose: Nose normal. Mouth/Throat: Mouth: Mucous membranes are moist. Pharynx: Oropharynx is clear. Eyes Pupils: Pupils are equal, round, and reactive to light. Cardiovascular Rate and Rhythm: Normal rate and regular rhythm. Pulses: Normal pulses. Heart sounds: Normal heart sounds. Pulmonary Effort: Pulmonary effort is normal. Breath sounds: Normal breath sounds. Abdominal Palpations: Abdomen is soft. Tenderness: There is no abdominal tenderness. Musculoskeletal General: Normal range of motion. Cervical back: Normal range of motion. Skin General: Skin is warm and dry. Capillary Refill: Capillary refill takes less than 2 seconds. Neurological General: No focal deficit present. Mental Status: He is alert and oriented to person, place, and time. Psychiatric Mood and Affect: Mood normal. Behavior: Behavior normal. DIAGNOSTICS I have reviewed diagnostics. Studies of note include: Results from last 7 days Lab Units 08/28/23 0505 WBC x10(9)/L 3.4 HEMOGLOBIN g/dL 10.1* MCV fL 93.2 PLATELETS AUTO x10(9)/L 52* SODIUM mmol/L 136 CHLORIDE mmol/L 107 BUN mg/dL 11 CREATININE mg/dL 0.84 Estimated Creatinine Clearance: 75 mL/min (by C-G formula based on SCr of 0.84 mg/dL). ANTIMICROBIAL MEDICATIONS Current: cefTRIAXone, 2 g, Q24H metroNIDAZOLE in NaCl (iso osm), 500 mg, Q8H - started 08/24 MICROBIOLOGY Blood culture 08/24 1358 - 1/2 Clostridium perfringens after 9 hours - 1/2 Staphylococcus epidermidis after 18 hours (likely contamination) Blood cultures 08/24 1412 - NGTD Blood cultures 08/25 - NGTD IMAGING CT Chest with IV Contrast Result Date: 08/26/2023 Impression: 1. No mediastinal abscess or gas to [...] may be inflammatory or suggest low-grade malignancy. ASSESSMENT / PLAN #1 Diabetes Mellitus Type 2 (HCC) #2 Hepatitis Autoimmune (HCC) #3 Hypertension Portal (HCC) #4 Secondary Esophageal Varices Without Bleeding (HCC) #5 Unspecified Cirrhosis Of Liver (HCC) #6 Stricture Esophagus #7 Thrombocytopenia (HCC) #8 Sepsis (HCC) #9 Pneumonitis Due To Inhalation Of Food And Vomit (HCC) Patient is much improved since initial hospitalization. Requiring no pressors or supplemental oxygen. He endorses feeling well and back to baseline. RECOMMENDATIONS CT abdomen/pelvis showed no concerns for infection. Continue ceftriaxone/Flagyl while in the hospital. When patient is discharged from the hospital, continue levofloxacin/Flagyl PO x 14 days per instructions below. Primary service: ID Primary Service Options: No additional needs noted INFECTIOUS DISEASES THERAPY RECOMMENDATIONS Antimicrobial plan: Patient will stay on the following antimicrobials: Levofloxacin 750 mg orally every 24 hours Stop date known: stop date: 09/08/23 Metronidazole 500 mg orally every 8 hours Stop date known: stop date: 09/08/23 Lab monitoring while on antimicrobial therapy: No Should patient be enrolled in OPAT/COPAT program: No Infectious Diseases follow-up: Follow-up: No outpatient follow-up indicated. Central catheter management at end of treatment: Not applicable Rafi Alvarez APRN, C.NShila, M.S.N. * Alannah Moon, PharmMarcusDMarcus, R.Ph., [facility] - 08/28/2023 8:02 AM CDT Pharmacist Progress Note HPI: 72 y.o. male. Presented to the ED on 08/23 with food bolus and possible aspiration, s/p EGD withfood bolus removed on 08/24. Admitted to the MICU after the EGD for ongoing monitoring and aspirationpneumonia. PMH: cirrhosis d/t autoimmune hepatitis with esophageal varices s/p band ligation 2020, post-band ligation stricture with recurrent food boluses, T2DM, GERD, HTN, DVT (01/2022), OA, HTN OBJECTIVE Outpatient medication history: Reviewed by a Pharmacist(or pharmacy customer care specialist) on 08/24 Held: cholecalciferol, empagliflozin, eplerenone, ferrous gluconate, furosemide, metformin, Changed: PPI interchange VTE Prophylaxis: SQH (BID for low plts per ICU team) ASSESSMENT / PLAN Food bolus: S/p EGD with bolus removal on 08/24. Treating aspiration pneumonia with ceftriaxone and metronidazole per ID, planning 14 day course with levofloxacin/metronidazole on discharge. Please change Flagyl to PO if he can swallow. Imagin/[address] negative for esophageal perf; 08/[address] imaging negative for infection; ordered per ID given C. perfringens isolated in blood culture. Micro: 6/4 blood cultures grew 1/2 C perfringens and MSSE; 6/4 urine culture NGTD; 6/ repeat bloodcultures NGTD T2DM: Insulin glargine 5 units daily + moderate correction insulin. A1c 6.4% (04/2023). Cirrhosis: New lactulose 10g TID. Ascites: Holding eplerenone and furosemide Thrombocytopenia: subcut heparin to BID dosing per ICU team Alannah Moon Pharm.D., R.Ph., BCPS [phone] * Angely Bell M.S., O.T. - 08/27/2023 1:30 PM CDT OT/PT consult orders were received, patient's chart was reviewed, and OT collaborated with RN. Patient is mobilizing with stand by assist with nursing staff and was independent with ADLs and IADLs atbaseline. Patient reports no concerns for acute OT/PT at this time and is in agreement with OT/PT signing off. If patient's functional status should change significantly, OT/PT may be re-consulted. Electronically signed by: Angely Bell M.S., O.T. 08/27/23 1:31 PM CDT * Clemente Baer M.D. - 08/27/2023 10:35 AM CDT RST [facility] Medicine 1 PROGRESS NOTE SUBJECTIVE Mr. Rodriguez is transferred to us from the ICU today. He no longer has any ICU needs. His EGD was on 08/24. Meat was found in the lower esophagus and was removed. Small less than 5 mm varices were seen in the lower 3rd of the esophagus. There was erythematous mucosa without ischemic changes. There is moderate intrinsic stenosis secondary to prior banding in the lower 3rd of the esophagus measured 1.3 cm. Gentle dilation was done up to 15 mm with no mucosal disruption. They wanted him to follow up in clinic with an EGD in 4 weeks. Upon presentation he had a fever and was hypotensive and required intermittent norepinephrine whichwas weaned off overnight. He was saturating on room air overnight. I have reviewed the current medication list. OBJECTIVE VITAL SIGNS Temperature: [36.8 ??C-37.3 ??C] 36.8 ??C Heart Rate: [52-80] 77 Resp Rate: [14-29] 16 Blood Pressure: (100-116)/(53-75) 100/65 Arterial Line BP: (87-147)/(43-68) 112/60 SpO2: [90 %-98 %] 98 % Flow Rate (L/min): [1 L/min] 1 L/min Pulse Rate: [52-80] 70 I/O / 0000 08/24 2359 08/25 0000 08/25 2359 / 0000 08/26 2359 P.O. 100 430 Crystalloid Bolus 1500 1010 Maintenance IV 700 Continuous Medications 251.6 29.5 Intermittent Medications 650 150 Total Intake(mL/kg) 2300 (34.8) 2341.6 (35.6) 179.5 (2.7) Urine (mL/kg/hr) 450 (0.3) 1415 (0.9) 200 (0.3) Blood 0 Total Output 450 1415 200 Net +1850 +926.6 -20.5 PHYSICAL EXAM General: Alert, oriented, in no acute distress HEENT: Moist mucous membranes. Anicteric sclera. EOM intact. No cervical lymphadenopathy CV: regular rate and rhythm without murmors/rubs/gallups Resp: crackles in lower lung guardado bilaterally Abdomen: soft, nontender to palpation. Umbilical hernia present. No guarding or rebound tenderness.Normoactive bowel sounds Extremities: trace LE edema Neuro: A/O x4, no focal neurological deficits Psych: appropriate mood and affect DIAGNOSTICS I have personally reviewed laboratory data, cultures, imaging, and ECGs since admission, with espana findings discussed below in the assessment and plan. ASSESSMENT / PLAN Niko Rodriguez is a 72 y.o. male with a past medical history of autoimmune hepatitis with cirrhosis, esophageal varices, and thrombocytopenia with previous variceal band ligation in 2021. Hepresents after food impaction in the setting of post band ligation stricture. He presents after eating steak on 08/24 he had a food impaction. He then had aspiration pneumonia versus pneumonitis and had a brief ICU stay for a small pressor requirement. He was doing well and looks clinically well. We have a plan in place for antibiotics for the next 14 days. Tonight goes smoothly we can look at discharge tomorrow. We discussed the importance of adhering to his mechanical soft diet. Repeat EGD in 4 weeks for further dilations. # Food impaction # History of esophageal strictures from variceal banding # Autoimmune hepatitis # Cirrhosis # Portal HTN with esophageal varices # Thrombocytopenia # GERD # Constipation Protonix 40mg BID Lactulose 10g oral - titrate to 3bm daily Miralax daily, senna 2 tablets BID Hold home eplerenone 100mg given HoTN Hold home lasix 40mg given HoTN Followup with GI with EGD in 4w for further dilation # Aspiration pneumonitis # clostridium perfringens bacteremia # Sepsis -resolved - Blood cultures - 08/25 - collected - 08/24 - staph epi 1/2 bottles, 1/2 sets - clostridium perfringens 1/2 bottles, 1/2 sets Sputum cultures pending Per Id, tentative plan (which we will finalize tomorrow) Inpatient IV ceftriaxone IV flagyl Outpatient Levaquin Flagyl 14d total course (stop date 09/07) Mechanical soft diet PRN oxygen Duonebs PRN CT abdomen/pelvis per IFD # T2DM # HTN # HLD # History of DVT Glargine 5u Sliding scale insulin Hold home jardiance and metformin Crestor 20mg # BPH Remove nicholson PRN bladder scans PRN I/O cath Current Activity/Mobility: BMAT Level 4 (Able to stand and walk; needs staff assist if fall risk factors identified) Diet: soft mechanical diet Tubes/lines: PIV VTE prophylaxis: heparin Code status: Full Code Disposition: Home with expected discharge date Surrogate Decision Maker: Spouse, Aleksandra Stable to discharge criteria (not met): discharge IV antibiotic plans Patient will be staffed with Dr. White tomorrow. Clemente Baer PGY-2, Internal Medicine * Carson Jhaveri M.D. - 08/27/2023 9:28 AM CDT [facility] ICU patient progress/supervisory note Patient seen and examined. I agree with the documentation, examination, impression and recommendations as outlined by Alannah Alvarez in her ID progress note from today. Overall patient remains quite stable and readily interactive. He remains afebrile and is tolerating soft diet/liquids without difficulty. No obvious aspiration. CT chest yesterday did not identify any obvious esophageal compromise/perforation or abnormal fluidcollection in the mediastinal area. There is some degree of mild diffuse esophageal thickening but this was felt possibly reflective of recent EGD. OBJECTIVE Vitals: 08/27/23 0900 BP: Pulse: 74 Resp: 19 Temp: SpO2: 96% Blood cultures from August 24 with Clostridium perfringens; 1 bottle with Staphylococcus epidermidis Follow-up blood cultures remain collectively negative ASSESSMENT / PLAN Impression 1. Polymicrobial bloodstream infection Clostridium perfringens and Gram-positive cocci 2. Recent lower esophageal impaction with food/meat, status post removal via EGD August 23 3. Postprocedural hypoxia, respiratory insufficiency query aspiration 4. Autoimmune hepatitis with associated hepatic cirrhosis, esophageal varices 5. Type 2 diabetes Overall, patient remains clinically stable. Source of bacteremia most likely is from the GI tract -whether reflective of esophageal compromise from food impaction, EGD procedure or unrelated lower GI tract is unclear at this point in time. Chest x-ray and CT chest collectively not demonstrate any mediastinal free air or esophageal compromise, although chest x-ray is not the best radiologic studyto show this. Patient's abdominal exam is not overly impressive however, he does have history of inguinal hernias and chronic pain in the groin area I suspect the 1 bottle of Staphylococcus epidermidis may reflect a contaminant and not clinically relevant in this clinical context Recommendations - I agree with the recommendations as outlined by Marcia Alvarez 1. For now continue IV ceftriaxone, metronidazole 2. I think we can discontinue IV vancomycin 3. Because of the isolation of Clostridium from twinges from blood culture on August 24 (which I think it is real) and we do not have clear upper GI track compromise despite recent EGD, I would favor CT abdomen pelvis given patient's complex inguinal history, autoimmune hepatitis-to ensure no alternative focus of infection which may be a confounding variable given patient's clinical presentation. This was originally scheduled in the outpatient setting for yesterday but I believe was canceled The rest of the impression and recommendations as nicely outlined by Alannah Alvarez. We will continue to follow carefully with you * Kevin Vale, Jabier.D., R.Ph., [facility] - 08/27/2023 8:54 AM CDT Pharmacist Progress Note HPI: 72 y.o. male. Presented to the ED on 08/23 with food bolus and possible aspiration, s/p EGD withfood bolus removed on 08/24. Admitted to the MICU after the EGD for ongoing monitoring after the EGD and aspiration pneumonia. PMH: autoimmune hepatitis & cirrhosis with esophageal varices s/p band ligation 2020, post-bandligation stricture with recurrent food boluses, DMII OBJECTIVE Outpatient medication history: Reviewed by a Pharmacist(or pharmacy customer care specialist) on 08/24 Procedures(this encounter): - 6:4: EGD Neuro/Psych: RASS 0, Ox3, CAM-, pain 0 CV: NS and HD low in setting of cirrhosis, on NE. Continues statin Resp: RA s/p aspiration Neph: BL Scr ~1-1.2. Scr is at BL, UOP per intermittent charting. [id number] C equation eGFR ~55-60ml/min. ID: Afeb for past 24h and WBC WNL. 08/24 blood showing C perfringens and MSSE. ID following and currently D2 ceftriax/metro for asp PNA and C perfringens/MSSE bacteremia. ID considering MSSE and C perfringens as contaminant due to only growing in one bottle, plan to complete 5d course of abxs. GI/Hepatic/Nutrition/Endocrine: S/p EGD with removal of food bolus, baseline autoimmune cirrhosis. LFTs currently ok. +BR. Glucose 100-230 with SSI Prophylaxis: SQH(BID for dropping plts) and PPI ASSESSMENT / PLAN Food bolus: S/p EGD with bolus removal Aspiration pneumonia and concern for C perfringens and MSSE bacteremia : Converting ceftriaxone and metronidazole to amox/clav Thrombocytopenia: subcut heparin to BID dosing Pharmacy Specific Dosing Protocols and Consultations: Pharmacist Antimicrobial Dosing Indication: Bacteremia and Aspiration pneumonia Antibiotics: Amoxicillin/clavulanic acid Plan to transition ceftriaxone and metronidazole to amox/clav at 875/125 mg BID. Kevin Vale Pharm.D., R.Ph., [facility] Pager [phone] * Dimitry Davis - 08/27/2023 8:45 AM CDT [facility] Spiritual Care Progress Note Patient: Niko Rodriguez Age:72 y.o. [id number] Reason(s) for encounter: Spiritual Care contact to introduce spiritual care service and assess for potential spiritual care needs. Summary: I was able to meet with Niko Rodriguez and his . Both appeared calm and expressed that they are optimistic about the future. They did not indicate any further needs at this time and shared their former Clean Up Supervisor will be visiting. Spiritual Assessment Jew Identification / Spiritual Practices: Niko is Adventism. Spiritual Care interventions: Introduced the role as member of the interdisciplinary care team and assessed spiritual care needs/concerns of patient and/or family Spiritual Care outcomes: Patient/family became familiar with the role of spiritual care provider and identified spiritual care needs. Patient/family was appreciative of spiritual care support. Spiritual Care Plan / Recommendations: No further spiritual care requested or required at this time. Chaplains can be contacted by paging [phone] ([place]) or [phone] ([place]). * Alannah Alvarez APRN, C.N.P., M.S.N. - 08/27/2023 7:48 AM CDT INFECTIOUS DISEASE RESIDENT PROGRESS NOTE Brief summary Mr. Rodriguez is a 72 yo M admitted for sepsis secondary to aspiration pneumonia. Past medical historysignificant for autoimmune hepatitis with esophageal varices, ascites, T2DM, esophageal strictures,DVT 2021, and aspiration event in Oct 2022. Blood cultures initially showed Clostridia perfringens bacteremia and staph epi, likely contamination, in setting of aspiration pneumonia and recent EGD for food impaction. He required norepinephrine infusion which has since been weaned off. SUBJECTIVE Niko Rodriguez is resting comfortably sitting in history. He denies any pain, shortness of breath,or discomfort. He is off all supplemental oxygen and off all vasopressors. He reports feeling well after adequate sleep. OBJECTIVE VITAL SIGNS Temperature: [37 ??C-37.3 ??C] 37.3 ??C Heart Rate: [50-80] 73 Resp Rate: [13-28] 19 Blood Pressure: (75-117)/(43-75) 108/75 Arterial Line BP: (87-147)/(43-68) 113/62 SpO2: [90 %-98 %] 93 % Flow Rate (L/min): [1 L/min] 1 L/min Pulse Rate: [50-80] 72 Admission Weight: 65 kg Current Weight: 65.8 kg PHYSICAL EXAM Physical Exam DIAGNOSTICS I have reviewed diagnostics. Studies of note include: Results from last 7 days Lab Units 08/27/23 0607 WBC x10(9)/L 4.0 HEMOGLOBIN g/dL 9.7* MCV fL 91.2 PLATELETS AUTO x10(9)/L 44* SODIUM P mmol/L 137 CHLORIDE P mmol/L 107 BUN P mg/dL 14 CREATININE mg/dL 0.88 Estimated Creatinine Clearance: 68.5 mL/min (by C-G formula based on SCr of 0.88 mg/dL). ANTIMICROBIAL MEDICATIONS Current: - Ceftriaxone 2 g every 24 hours - started 08/24 - Metronidazole 500 mg every 8 hours - started 08/24 Primary team initiated Augmentin this morning, ID recommends returning to ceftriaxone/metronidazoledue to concerns for possible unidentified infection in abdomen. MICROBIOLOGY Blood culture 08/24 1358 - 1/2 Clostridium perfringens after 9 hours - 1/2 Staphylococcus epidermidis after 18 hours (likely contamination) Blood cultures 08/24 1412 - NGTD Blood cultures 08/25 - Pending IMAGING CT Chest with IV Contrast Result Date: 08/26/2023 Impression: 1. No mediastinal abscess or gas to [...] may be inflammatory or suggest low-grade malignancy. ASSESSMENT / PLAN #1 Diabetes Mellitus Type 2 (HCC) #2 Hepatitis Autoimmune (HCC) #3 Hypertension Portal (HCC) #4 Secondary Esophageal Varices Without Bleeding (HCC) #5 Unspecified Cirrhosis Of Liver (HCC) #6 Stricture Esophagus #7 Thrombocytopenia (HCC) #8 Sepsis (HCC) #9 Pneumonitis Due To Inhalation Of Food And Vomit (HCC) Patient off norepinephrine this morning. 1/2 blood cultures staph epi likely contamination 1/2 blood cultures Clostridium perfringens less likely to be contamination. 9 hour incubation and anaerobe pathogen concerning for active infection, potentially prior to aspiration event leading to hospitalization. RECOMMENDATIONS Recommend CT abdomen/pelvis with contrast. Renal function appears to be at baseline. Creatinine 0.88 today. Rule out abdominal infection causing Clostridium bacteremia. We will follow results. Continue ceftriaxone/Flagyl while in the hospital. If patient is discharged from hospital, continue levofloxacin/Flagyl x 14 days. Rafi Alvarez APRN, Mendy.N.Srinivasan, M.S.N. * Kirk Victor M.D. - 08/27/2023 7:13 AM CDT MICU PROGRESS NOTE SUBJECTIVE Patient Summary Mr. Niko Rodriguez is a 72 y.o. 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 Admitted to the MICU for further evaluation and management of sepsis secondary to aspiration pneumonia. Interval Events DAY (08/25): - On norepi 0.1 - Continue ceftriaxone and flagyl - Staph epi growth, vanc discontinued - Chest CT no perf - Mentating well - Mechanical soft diet NIGHT: - No acute events overnight. Mg 1.9, repleted 2 g. K 3.6, oral 40 mEq given. Patient is feeling overall good. He does not have pain. Mentating well. OBJECTIVE VITAL SIGNS Temperature: [37 ??C-37.3 ??C] 37.3 ??C Heart Rate: [50-80] 77 Resp Rate: [13-28] 25 Blood Pressure: (74-117)/(43-75) 108/75 Arterial Line BP: (87-147)/(43-68) 131/68 SpO2: [90 %-98 %] 94 % Flow Rate (L/min): [1 L/min] 1 L/min Pulse Rate: [50-80] 77 I/O 06/04 0701 06/05 0700 06/05 0701 06/06 0700 06/06 0701 06/07 0700 P.O. 440 90 Crystalloid Bolus 2500 10 Maintenance IV 700 Continuous Medications 281.1 Intermittent Medications 100 650 Total Intake(mL/kg) 3740 (56.8) 1031.1 (15.7) Urine (mL/kg/hr) 815 (0.5) 1250 (0.8) Blood 0 Total Output 815 1250 Net +2925 -218.9 PHYSICAL EXAM General: Alert, interactive, not acutely ill. Skin: No rashes or lesions. No chest wall crepitus. Eyes: Pupils equal and round. Sclera anicteric. ENT: Hearing grossly intact. Dentition intact. Posterior oropharyngeal abrasions secondary to recent EGD. Lymph: No cervical or subclavicular adenopathy. Lungs: Crackles present on both lung bases. No crepitations to palpation over the anterior chest. Heart: Regular rate and rhythm. No murmurs appreciated. No lower extremity edema. Abdomen: Umbilical hernia present which is mildly tender to palpation but easily reducible. Left-sided inguinal hernia present which is easily reducible. No abdominal distention or pain to palpation.Bowel sounds present. Neuro: Alert and oriented x4. No asterixis. Able to move all extremities on command. Extraocular eye movements intact. ASSESSMENT / PLAN Mr. Niko Rodriguez is a 72 y.o. 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 Admitted to the MICU for further evaluation and management of sepsis secondary to aspiration pneumonia. Upon arrival to the ICU, the patient was hemodynamically stable with maps in the high 60s. He was adequately fluid resuscitated in the ED with stability in his blood pressure so additional fluids were not given. He did not require any pressor support at that time. His oxygen was able to be weaned down to room air with oxygen saturations in the low 90s%. The patient likely had an aspiration event the evening of 08/23 following his food impaction. It still remains unclear whether this is true aspiration pneumonia versus aspiration pneumonitis or maybe perforation. CT chest did not show perforation. Given low blood pressures refractory to fluids, norepinephrine was restarted. Today, he was discontinued on norepinephrine as his MAPs were > 65. With the stricturing in his esophagus from previous variceal banding procedures, he is at high-riskfor aspiration events moving forward. Clostridium perfringens was most likely a contaminant. Will discontinue ceftriaxone and flagyl and start augmentin for a total of 7 days. Plan for today: - Discontinue ceftriaxone and flagyl - Start augmentin for a total of 7 days - Transfer to the floors NEURO: Plan - Sedation: none - Analgesia: Not in any pain CARDIAC: # essential hypertension # query atrial fibrillation, CHADS-VASc 3 MAPs 57-62 overnight, added 1L fluids and lactate in the morning was 1.9 New ECG this morning due to bradycardia was unchanged from previous in the ED QTc: 447 Plan - MAP goal: >65 - Vasoactive meds: none - Sinus on telemetry; may benefit from Holter in outpatient setting to identify burden of atrial fibrillation if any and need for anticoagulation RESP: # acute hypoxic respiratory failure secondary to aspiration pneumonia, resolved Currently on room air Plan - Oxygen via NC PRN to keep SpO2 > 90% - DuoNebs q6h PRN - Pulmonary hygiene as tolerated - Bedside swallow assessment RENAL: # elevated anion gap metabolic acidosis secondary to elevated lactate, resolved Past 24 hours: Intake/Output Summary (Last 24 hours) at 08/27/2023 0713 Last data filed at 08/27/2023 0600 Gross per 24 hour Intake 1031.13 ml Output 1250 ml Net -218.87 ml Recent Labs 08/27/23 0607 08/26/23 0438 08/25/23 1411 08/25/23 1410 08/25/23 1153 08/25/23 1153 08/12/23 1140 NA 137 139 139 142 < > 141 137 KSERUM -- 3.8 -- -- -- -- 3.5 L KBLOOD -- -- -- 3.8 -- 3.5 L -- KPLASMA 3.6 -- 3.8 -- -- -- -- CL 107 110 H 103 -- -- -- 102 BICARB 22 22 18 L 18 < > 24 26 BUN 14 22 21 -- -- -- 24 CREATININE 0.88 1.11 0.90 -- -- -- 0.96 MG 1.9 1.8 -- -- -- -- -- < > = values in this interval not displayed. Plan - Fluid goal: net even - Mg 2g, goal > 2 (current 1.8) GI: # history of food impaction (2021 and 2022) secondary to post band ligation strictures # recent food impaction on 08/23 s/p successful EGD disimpaction on 08/24 # cirrhosis secondary to autoimmune hepatitis # history of ascites and known varices on recent EGD (08/25/23) MELD 3.0: 12 at 08/27/2023 6:07 AM MELD-Na: 11 at 08/27/2023 6:07 AM Calculated from: Serum Creatinine: 0.88 mg/dL (Using min of 1 mg/dL) at 08/27/2023 6:07 AM Serum Sodium: 137 mmol/L at 08/27/2023 6:07 AM Total Bilirubin: 1.3 mg/dL at 08/25/2023 2:11 PM Serum Albumin: 2.3 g/dL at 08/26/2023 4:38 AM INR(ratio): 1.4 at 08/25/2023 2:11 PM Age at listing (hypothetical): 72 years Sex: Male at 08/27/2023 6:07 AM Stools: Last BM Date: 08/24/23none Plan - Nutrition: Soft mechanical diet after bedside swallow eval - Bowel regimen: Senna and MiraLAX - Holding home lasix and eplerenone for ascites due to hypotension, can restart as tolerated - 40 mg pantoprazole BID ENDO: # type 2 diabetes mellitus Lab Results Component Value Date HGBA1C 6.4 (H) 05/12/2023 Recent Labs 08/27/23 0607 08/26/23 0438 08/25/23 1411 08/12/23 1140 GLUCOSE 133 130 137 116 Plan - Goal blood glucose 140 - 180 mg/dL ([email or web address]) - POC glucose - Holding home metformin and Jardiance - 5 Lantus AM + Moderate correction scale ID: # sepsis secondary to aspiration pneumonia Results for orders placed or performed during the hospital encounter of 08/24/23 (from the past 72 hour(s)) Bacterial Culture, Aerobic + Susceptibility, Urine Specimen: Urine, Straight Catheter Specimen Source Site: Urine Result Value Urine Culture No growth after 1 day of incubation. Plan - Cultures: - Blood culture x2 collected in ED on 08/24 growing Clostridium perfringens and Staph epi, both are likely contaminant - Urine culture x1 collected in ED on 08/24 no growth to date - Antibiotics: augmentin x7 days - ID consult, appreciate recs HEME: # thrombocytopenia, chronic, secondary to cirrhosis # chronic anemia (baseline Hgb 12-13) # Iron deficiency Recent Labs 08/27/23 0607 08/26/23 0438 08/25/23 1411 08/12/23 1141 HGB 9.7 L 9.3 L 11.9 L 11.4 L WBC 4.0 6.4 4.0 3.4 PLT 44 L 49 L 64 L 62 L Results from last 7 days Lab Units 08/25/23 1411 INR 1.4 Platelet drop from 64 to 49 Plan - Heparin BID given thrombocytopenia - Holding home iron supplementation due to concern for bacteremia. CHECKLIST: Prophylaxis: DVT: Subcutaneous heparin BID GI: Pantoprazole b.i.d. PJP: N/a Access: Lines, Drains, and Wounds Peripheral IV Duration Peripheral IV 08/25/23 20 G Right Forearm 2d 6h Peripheral IV 08/26/23 20 G Lower;Posterior;Proximal;Right Forearm 20h Peripheral IV 08/25/23 20 G Anterior;Left;Lower Forearm 1d 8h Drain Duration Indwelling Urinary Catheter Double-lumen;Latex 16 Fr. 1d 15h Arterial line Duration Arterial Line 08/26/23 Left Radial 20h Wound Duration Wound 07/10/23 Puncture Abdomen Lateral;Right;Upper paracentesis site 47d 15h Wound 05/13/23 Incision Hip Anterior;Left 106d 6h Code Status: FULL CODE, discussed on admission Surrogate Decision Maker: Spouse, Esthela Rodriguez ([phone]) Plan discussed with [facility] Medicine 1 Compressor Station Operator, Dr. Lu. Please page the [facility] Medicine1 service pager with any questions. Kirk Rm MD Internal Medicine, PGY-1 Pager [phone] * Gypsy Lu M.D. - 08/27/2023 5:17 AM CDT This is a supervisory note for [facility]. We have discussed the history, physical exam, and assessment/plan in detail. I agree with the documentation of today's date. I have personally seen and examined the patient, reviewed all relevant labs, radiology studies, and chart notes. I have discussed the assessment and plan in person with the multidisciplinary care team. Subjective: Mr. Rodriguez is a 72 y.o. male who was admitted to the intensive care unit on August 26, 2023 for aspiration following upper endoscopy for food impaction. He presented to the emergency department on August 25, 2023 for an impacted piece of steak in the esophagus. He was unable to swallow saliva and had significant dysphagia. He tried to drink some liquids but was unsuccessful. He underwent EGD that day and a piece of steak was removed from the lower 1/3 of the esophagus. Following the procedure the patient developed hypoxemia. Chest x-ray showed a left lower lung infiltrate. He was started on supplemental oxygen, ceftriaxone and metronidazole. Lactate was initially 2.3 but increased to 9.9. For that reason, he was transferred to the medical intensive care unit. Medical history is notable for: -autoimmune hepatitis -cirrhosis -portal hypertension -esophageal varices -thrombocytopenia -type 2 diabetes mellitus -GERD -esophageal stricture -hypertension -hyperlipidemia -osteoarthritis -DVT in 2021 Interval events: -overall pressor requirements are coming down. We were able to be stopped this morning at around 5:00 a.m.. -CT scan of the chest does requested Infectious diseases showed left lower lobe infiltrate -Gram-positive cocci result as staph epi which we believed to be a contaminant. Vancomycin was discontinued. Physical Exam: General: Alert. Oriented x3. Heart: Regular rate and rhythm Lungs: Nonlabored respirations on 1 L Impression/ Report/ Plan: #1 Aspiration pneumonitis #2 Clostridium perfringens bacteremia #3 Sepsis #4 Hypoxemic respiratory failure, resolved #5 Autoimmune hepatitis #6 Portal hypertension #7 Type 2 diabetes #8 Thrombocytopenia He is currently treated with ceftriaxone and metronidazole. Follow up blood cultures are pending. Difficult to know whether or not this is a contaminant are truly related to the aspiration pneumonitis and bacterial translocation. Because of the Clostridium, we are continuing him on anaerobic coverage. Infectious diseases was consulted overnight. Vasopressors have been discontinued. He is overall improving from any sepsis/SIRS standpoint. His hypotension could have been secondary to aspiration. Still not certain if Clostridium was a true bacteremia. Nonetheless, we will treat him with anaerobic coverage knowing that it was not needed for aspiration pneumonia. Plan: -complete a 5 day course of antibiotic therapy with anaerobic coverage -follow up repeat blood cultures to ensure no growth -discontinue Nicholson catheter and arterial line -he can transition out of the intensive care unit #9 Code status: Full code Prophylactic ICU bundle: Fluids-net even today Analgesia-not indicated Sedation-not indicated Thromboembolic prophylaxis-heparin subcutaneous Head of bed elevation-30?? Ulcer prophylaxis-continue home pantoprazole Glucose management-meeting ICU target Lines-peripheral IV x2, indwelling Nicholson catheter, radial arterial line Mobility-ad joe Nutrition-general diet SH 3 * Angely Bell M.S., O.T. - 08/26/2023 2:56 PM CDT 08/26/23 7578 Reason Therapy Missed Reason Therapy Missed Medical hold (Patient initiating norepinephrine and having arterial line placed on attempt in AM. Patient undergoing imaging on attempt in afternoon. OT/PT will follow up at a later date as appropriate.) * Kevin Vale, Pharm.D., R.Ph., [facility] - 08/26/2023 8:05 AM CDT Pharmacist Progress Note HPI: 72 y.o. male. Presented to the ED on 08/23 with food bolus and possible aspiration, s/p EGD withfood bolus removed on 08/24. Admitted to the MICU after the EGD for ongoing monitoring after the EGD and aspiration pneumonia. PMH: autoimmune hepatitis & cirrhosis with esophageal varices s/p band ligation 2020, post-bandligation stricture with recurrent food boluses, DMII OBJECTIVE Outpatient medication history: Reviewed by a Pharmacist(or pharmacy customer care specialist) on 08/24 Procedures(this encounter): - 6:4: EGD Neuro/Psych: RASS 0, Ox3, CAM-, pain 0 CV: NS and HD low in setting of cirrhosis. Continues statin Resp: NC s/p aspiration Neph: BL Scr ~1-1.2. Scr is at BL, UOP per intermittent charting. [id number] C equation eGFR ~55-60ml/min. ID: Febrile in past 24h with Tmax 38.2 and WBC WNL. 08/24 blood showing C perfringens and Gm+ resm staph. Currently D1 ceftriax/metro for asp PNA and C perfringens/gm+ resm staph bacteremia, ID following and plan to add vanc. GI/Hepatic/Nutrition/Endocrine: S/p EGD with removal of food bolus, baseline autoimmune cirrhosis. LFTs currently ok. +BR. Glucose <180 with SSI Prophylaxis: SQH(BID for dropping plts) and PPI ASSESSMENT / PLAN Food bolus: S/p EGD with bolus removal Aspiration pneumonia and C perfringens and Gm+ resembling Staphylococcus bacteremia : Continues ceftriaxone and metronidazole Adding vancomycin pending the blood culture Thrombocytopenia: Reducing subcut heparin to BID dosing Pharmacy Specific Dosing Protocols and Consultations: Pharmacist Antimicrobial Dosing Indication: Bacteremia and Aspiration pneumonia Antibiotics: Vancomycin (10-15 mcg/mL), Ceftriaxone, and Metronidazole Plan to continue the ceftriaxone at 2gm q24h and metronidazole at 500mg q8h. Will load vancomycin at 1250mg IV once followed by 1250mg q24h. Kevin Vale Pharm.D., R.Ph., BCCCP Pager [phone] * Kirk Victor M.D. - 08/26/2023 6:47 AM CDT MICU PROGRESS NOTE SUBJECTIVE Patient Summary Mr. Niko Rodriguez is a 72 y.o. 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 Admitted to the MICU for further evaluation and management of sepsis secondary to aspiration pneumonia. Interval Events Night: - No acute events overnight. Additional 500 ml bolus given for rising lactate from ED transfer. MAPs stable in 60-65 range. Lactate decreasing on repeat draw. - Clostridium perfringens in 1 blood culture. Flagyl restarted per [place] antibiogram. ID consulted for additional recommendations. Will plan for repeat blood cultures at 1400 (24 hours after previous draw) - Staph epi grew on blood culture after 18 h 1/2 bottles Patient is feeling overall good. He does not have pain. Mentating well. OBJECTIVE VITAL SIGNS Temperature: [37 ??C-39 ??C] 37.3 ??C Heart Rate: [0-132] 55 Resp Rate: [13-37] 19 Blood Pressure: (69-145)/(41-91) 107/57 Arterial Line BP: (116-141)/(43-51) 126/48 SpO2: [88 %-98 %] 92 % Flow Rate (L/min): [0 L/min-4 L/min] 1 L/min Height: [172 cm] 172 cm Weight: [65.8 kg-66 kg] 65.8 kg BSA (Calculated - sq m): [1.77 sq meters] 1.77 sq meters BMI (Calculated): [22.2 kg/m??-22.3 kg/m??] 22.2 kg/m?? Pulse Rate: [50-123] 55 I/O 06/03 0701 06/04 0700 06/04 0701 06/05 0700 06/ 0701 08/26 0700 P.O. 440 60 Crystalloid Bolus 2500 10 Maintenance IV 700 Continuous Medications 62.1 Intermittent Medications 100 250 Total Intake(mL/kg) 3740 (56.8) 382.1 (5.8) Urine (mL/kg/hr) 815 (0.5) Blood 0 Total Output 815 Net +2925 +382.1 PHYSICAL EXAM General: Alert, interactive, not acutely ill. Skin: No rashes or lesions. No chest wall crepitus. Eyes: Pupils equal and round. Sclera anicteric. ENT: Hearing grossly intact. Dentition intact. Posterior oropharyngeal abrasions secondary to recent EGD. Lymph: No cervical or subclavicular adenopathy. Lungs: Crackles present on both lung bases. No crepitations to palpation over the anterior chest. Heart: Regular rate and rhythm. No murmurs appreciated. No lower extremity edema. Abdomen: Umbilical hernia present which is mildly tender to palpation but easily reducible. Left-sided inguinal hernia present which is easily reducible. No abdominal distention or pain to palpation.Bowel sounds present. Neuro: Alert and oriented x4. No asterixis. Able to move all extremities on command. Extraocular eye movements intact. ASSESSMENT / PLAN Mr. Niko Rodriguez is a 72 y.o. 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 Admitted to the MICU for further evaluation and management of sepsis secondary to aspiration pneumonia. Upon arrival to the ICU, the patient was hemodynamically stable with maps in the high 60s. He was adequately fluid resuscitated in the ED with stability in his blood pressure so additional fluids were not given. He did not require any pressor support. His oxygen was able to be weaned down to room air with oxygen saturations in the low 90s%. The patient likely had an aspiration event the evening of 08/23 following his food impaction. It still remains unclear whether this is true aspiration pneumonia versus aspiration pneumonitis or maybe perforation. We will get a CT chest to clarify. Given low blood pressures refractory to 1 L of LR, we started him on norepinephrine. With the stricturing in his esophagus from previous variceal banding procedures, he is at high-riskfor aspiration events moving forward. Plan to continue on ceftriaxone and flagyl given Clostridium perfringens was cultured. Gram-positive resembling Staphylococcus grew in blood culture in 18 h 1/2 bottles. We gave him 1 dose of vancomycin. However, it grew Staph epidermidis, so we discontinued van comycin. He does have decompensated cirrhosis with a history of ascites and known esophageal varices. He didrecently have paracentesis done at the end of June which did not show SBP. On exam, he does not have significant abdominal distention or positive fluid wave. Concern for SBP at this time is low. Given that he was already gotten antibiotics, if any ascitic fluid studies were to be sent they would be difficult to interpret given this so we will hold off on any paracentesis overnight. Plan for today: - Maintain MAP >65, on norepi 0.1 - Continue ceftriaxone and flagyl, discontinue vancomycin - chest CT - follow-up cultures - DuoNebs PRN - Bedside swallow assessment, soft diet per GI recommendations post EGD NEURO: Plan - Sedation: none - Analgesia: Not in any pain CARDIAC: # essential hypertension # query atrial fibrillation, CHADS-VASc 3 MAPs 57-62 overnight, added 1L fluids and lactate in the morning was 1.9 New ECG this morning due to bradycardia was unchanged from previous in the ED QTc: 447 Plan - MAP goal: >65 - Vasoactive meds: Norepinephrine 0.1 - Sinus on telemetry; may benefit from Holter in outpatient setting to identify burden of atrial fibrillation if any and need for anticoagulation RESP: # acute hypoxic respiratory failure secondary to aspiration pneumonia Currently on 1 L NC Plan - Oxygen via NC PRN to keep SpO2 > 90% - DuoNebs q6h PRN - Pulmonary hygiene as tolerated - Bedside swallow assessment RENAL: # elevated anion gap metabolic acidosis secondary to elevated lactate Past 24 hours: Intake/Output Summary (Last 24 hours) at 08/26/2023 1213 Last data filed at 08/26/2023 1200 Gross per 24 hour Intake 2422.08 ml Output 815 ml Net 1607.08 ml Recent Labs 08/26/23 0438 08/25/23 1411 08/25/23 1410 08/25/23 1153 08/25/23 1153 08/12/23 1140 NA 139 139 142 < > 141 137 KSERUM 3.8 -- -- -- -- 3.5 L KBLOOD -- -- 3.8 -- 3.5 L -- KPLASMA -- 3.8 -- -- -- -- CL 110 H 103 -- -- -- 102 BICARB 22 18 L 18 < > 24 26 BUN 22 21 -- -- -- 24 CREATININE 1.11 0.90 -- -- -- 0.96 MG 1.8 -- -- -- -- -- < > = values in this interval not displayed. Plan - Fluid goal: net even - Mg 2g, goal > 2 (current 1.8) GI: # history of food impaction (2021 and 2022) secondary to post band ligation strictures # recent food impaction on 08/23 s/p successful EGD disimpaction on 08/24 # decompensated cirrhosis secondary to autoimmune hepatitis # history of ascites and known varices on recent EGD (08/25/23) MELD 3.0: 13 at 08/26/2023 4:38 AM MELD-Na: 12 at 08/26/2023 4:38 AM Calculated from: Serum Creatinine: 1.11 mg/dL at 08/26/2023 4:38 AM Serum Sodium: 139 mmol/L (Using max of 137 mmol/L) at 08/26/2023 4:38 AM Total Bilirubin: 1.3 mg/dL at 08/25/2023 2:11 PM Serum Albumin: 2.3 g/dL at 08/26/2023 4:38 AM INR(ratio): 1.4 at 08/25/2023 2:11 PM Age at listing (hypothetical): 72 years Sex: Male at 08/26/2023 4:38 AM Stools: Last BM Date: 08/24/23 (per pt)none Plan - Nutrition: Soft mechanical diet after bedside swallow eval - Bowel regimen: Senna and MiraLAX - Holding home lasix and eplerenone for ascites due to hypotension - 40 mg pantoprazole BID ENDO: # type 2 diabetes mellitus Lab Results Component Value Date HGBA1C 6.4 (H) 05/12/2023 Recent Labs 08/26/23 0438 08/25/23 1411 08/12/23 1140 GLUCOSE 130 137 116 Plan - Goal blood glucose 140 - 180 mg/dL (doi:[id number]) - POC glucose - Holding home metformin and Jardiance - Moderate correction scale ID: # sepsis secondary to aspiration pneumonia No results found for this visit on 08/24/23 (from the past 72 hour(s)). Plan - Cultures: - Blood culture x2 collected in ED on 08/24 growing Clostridium perfringens and Staph epi - Urine culture x1 collected in ED on 08/24 - Sputum culture and gram stain if able to contain - Antibiotics: continue ceftriaxone and Flagyl - ID consult, appreciate recs HEME: # thrombocytopenia, chronic, secondary to cirrhosis # chronic anemia (baseline Hgb 12-13) Recent Labs 08/26/23 0438 08/25/23 1411 08/12/23 1141 HGB 9.3 L 11.9 L 11.4 L WBC 6.4 4.0 3.4 PLT 49 L 64 L 62 L Results from last 7 days Lab Units 08/25/23 1411 INR 1.4 Platelet drop from 64 to 49 Plan - Heparin BID - Holding home iron supplementation due to concern for bacteremia. - Ferritin, iron, and TIBC studies in AM CHECKLIST: Prophylaxis: DVT: Subcutaneous heparin BID GI: Pantoprazole b.i.d. PJP: N/a Access: Lines, Drains, and Wounds Peripheral IV Duration Peripheral IV 08/26/23 20 G Lower;Posterior;Proximal;Right Forearm 1h Peripheral IV 08/25/23 20 G Right Forearm 1d 11h Peripheral IV 08/25/23 20 G Anterior;Left;Lower Forearm 13h Drain Duration Indwelling Urinary Catheter Double-lumen;Latex 16 Fr. 20h Arterial line Duration Arterial Line 08/26/23 Left Radial 1h Wound Duration Wound 07/10/23 Puncture Abdomen Lateral;Right;Upper paracentesis site 46d 20h Wound 05/13/23 Incision Hip Anterior;Left 105d 11h Code Status: FULL CODE, discussed on admission Surrogate Decision Maker: Spouse, Esthela Rodriguez ([phone]) Plan discussed with [facility] Medicine 1 Compressor Station Operator, Dr. Lu. Please page the [facility] Medicine1 service pager with any questions. Kirk Rm MD Internal Medicine, PGY-1 Pager [phone] * Gypsy Lu M.D. - 08/26/2023 5:33 AM CDT This is a supervisory note for CCM-1. We have discussed the history, physical exam, and assessment/plan in detail. I agree with the documentation of today's date. I have personally seen and examined the patient, reviewed all relevant labs, radiology studies, and chart notes. I have discussed the assessment and plan in person with the multidisciplinary care team. Subjective: Mr. Rodriguez is a 72 y.o. male who was admitted to the intensive care unit on August 26, 2023 for aspiration following upper endoscopy for food impaction. He presented to the emergency department on August 25, 2023 for an impacted piece of steak in the esophagus. He was unable to swallow saliva and had significant dysphagia. He tried to drink some liquids but was unsuccessful. He underwent EGD that day and a piece of steak was removed from the lower 1/3 of the esophagus. Following the procedure the patient developed hypoxemia. Chest x-ray showed a left lower lung infiltrate. He was started on supplemental oxygen, ceftriaxone and metronidazole. Lactate was initially 2.3 but increased to 9.9. For that reason, he was transferred to the medical intensive care unit. Medical history is notable for: -autoimmune hepatitis -cirrhosis -portal hypertension -esophageal varices -thrombocytopenia -type 2 diabetes mellitus -GERD -esophageal stricture -hypertension -hyperlipidemia -osteoarthritis -DVT in 2021 Interval events: -developed some hypotension overnight. Maps ranging from 55-60. Systolic blood pressure in the low 80s. -respiratory status improved. He was able to be titrated off of oxygen. He is saturating well on room air at 92%. -he was overall positive 1.8 L -blood cultures are notable for Clostridium perfringens at 9 hours to growth. Physical Exam: General: Alert. Oriented x3. Heart: Regular rate and rhythm Lungs: Nonlabored respirations on 1 L Impression/ Report/ Plan: #1 Aspiration pneumonitis #2 Clostridium perfringens bacteremia #3 Sepsis #4 Hypoxemic respiratory failure, resolved #5 Autoimmune hepatitis #6 Portal hypertension #7 Type 2 diabetes #8 Thrombocytopenia He is currently treated with ceftriaxone and metronidazole. Follow up blood cultures are pending. Difficult to know whether or not this is a contaminant are truly related to the aspiration pneumonitis and bacterial translocation. Because of the Clostridium, we are continuing him on anaerobic coverage. Infectious diseases was consulted overnight. This morning blood cultures returned positive for GPCs resembling Staph. Unclear if this is a contaminant. We added back vancomycin. His blood pressures are lower. His baseline blood pressure is normotension. He did have a real lactic acidosis. We will administer a L of IV fluid since his respiratory status has improved and repeatlactate. He received 1.5 L of crystalloid yesterday (20 cc/kg). Plan: -continue ceftriaxone and metronidazole -single dose of vancomycin -follow up repeat blood cultures -repeat lactate -infectious diseases consult for Clostridium perfringens bacteremia -we will start pharmacologic DVT prophylaxis -CT abdomen and we will add on chest #9 Code status: Full code Prophylactic ICU bundle: Fluids-administer an additional L of fluid Analgesia-not indicated Sedation-not indicated Thromboembolic prophylaxis-we will start subcutaneous heparin Head of bed elevation-30?? Ulcer prophylaxis-continue home pantoprazole Glucose management-meeting ICU target Lines-peripheral IV x2, indwelling Nicholson catheter Mobility-ad joe Nutrition-can start a mechanical soft diet Critical care time 30 minutes. This is time spent at this critically ill patient's bedside activelyinvolved in patient care as well as the coordination of care and discussions with the patient's family. This does not include any procedural time which has been billed separately. * Radha Danielle, D., R.Ph., [facility] - 08/25/2023 7:59 PM CDT Pharmacist Progress Note Reason for admission: 72 y.o. is a male admitted with food bolus and possible aspiration; admit to ICU with persistent lactate and borderline BP PMH: autoimmune hepatitis & cirrhosis with esophageal varices s/p band ligation 2020, post-bandligation stricture with recurrent food boluses, DMII Procedure during this stay: 6/ EGD with food bolus removal Home medications: In progress OBJECTIVE Neuro: RASS 0, Ox3, CAMneg, no pain Cardiovascular: borderline BP, no pressor need at this point Respiratory: stable on room air. Neph: Scr 0.9, seems baseline. lactate downtrending. 2.7 L fluids ID: afebrile, WBC WNL. Given INSURANCE INSTRUCTOR/metronidazole in ED. GI: bili & alk phos mild elevation; history cirrhosis Endo: [facility] WNL, uses PO antidiabetics at baseline, low threshold for SSI Prophylaxis: needs DVT prophylaxis ASSESSMENT / PLAN Metronidazole not necessary; if antibiotics to continue ceftriaxone provides adequate coverage for typical aspiration concerns. Next dose would be ceftriaxone 1 g at 1400 on 08/25. Radha Danielle Pharm.D., R.Ph., BCCCP [phone] * Klaudia Frederick M.D. - 08/25/2023 1:24 AM CDT GI Bleed Team Note GI bleed team was contacted overnight regarding food bolus impaction. Mr. Niko Rodriguez is a 72-year-old gentleman with medical comorbidities including autoimmune hepatitis-associated cirrhosis complicated by esophageal varices requiring endoscopic variceal band ligation previously in 2020. He is followed by Dr. Myrick in the outpatient setting. He has a history of food bolus impaction in 2021 (vegetable material) and 2022 (steak) in the setting of post-band ligation stricture. Last EGD October 2022 performed for food bolus impaction. Post-variceal band ligation scarring seen at that time (no dilation performed) along with small esophageal varices and mild portal hypertensive gas tropathy. Mr. Rodriguez ate steak at 5 PM on 08/25/23 which has not been able to pass since. He trialed consumption of carbonated beverages at home without success. He had difficulty swallowing secretions, throat discomfort, eructation, and hiccups similar to prior episodes, and thus presented to the emergency department for further evaluation. He has been hemodynamically stable and afebrile. 2 mg glucagon have been administered in the emergency department with mild improvement in ability to tolerate secretions, but he continues to regurgitate saliva into an emesis basin. I reviewed his case with my supervising product development consultant Dr. Rodney Lema and anesthesia on-call. Unfortunately, anesthesia is unable to provide us with assistance overnight, but will be available in the morning (7-8 AM) on our unit. The emergency department will notify the patient of this. EGD order may be placed so that this may be scheduled in the morning on the complex list as first case if possible. Plan reviewed and discussed with Dr. Rodney Lema, communicated with emergency department. Klaudia Frederick M.D. Gastroenterology Fellow GI bleed team pager - [phone] documented in this encounter H&P Notes * Xin Rai M.B.B.S. - 08/25/2023 9:41 PM CDT SUBJECTIVE HISTORY OF PRESENT ILLNESS I met with and examined the patient, reviewed relevant notes, lab and imaging results. I have discussed the plan of care with the multidisciplinary MICU team. Briefly, Mr. Rodriguez is a 72 y.o. male who was admitted to the ICU after upper endoscopy, which was done for removal of food impaction. Either before, during or after the endoscopy, the patient appears to have had an aspiration event. The patient's background medical history includes autoimmune hepatitis, cirrhosis, portal hypertension, esophageal varices, thrombocytopenia, type 2 diabetes mellitus, GERD, esophageal stricture, hypertension, hyperlipidemia, osteoarthritis and DVT in 2021. The patient presented to the emergency department on 08/24/2023 for an impacted piece of steak in hisesophagus. He was unable to swallow saliva and had significant dysphagia. He tried to drink some liquids but was unsuccessful. He underwent EGD and a piece of steak was removed from the lower third of the esophagus. Following the procedure, the patient developed hypoxemia. Chest x-ray showed left lower lung infiltrate. He was started on supplemental oxygen, ceftriaxone and metronidazole. Lactate was initially 2.3 and increased to 9.9. For this reason, he was transferred to the MICU. Upon arrival to the MICU, the patient was found to be awake, alert and in no acute distress. He wasweaned off supplemental oxygen. He is hemodynamically stable. OBJECTIVE BP (!) 89/52 Pulse 69 Temp 37.2 ??C (Oral) Resp 22 Ht 172 cm Wt 66 kg SpO2 93% BMI 22.31 kg/m?? ASSESSMENT / PLAN #1 Pneumonitis Due To Inhalation Of Food And Vomit (HCC) #2 Sepsis (HCC) #3 Diabetes Mellitus Type 2 (HCC) #4 Hepatitis Autoimmune (HCC) #5 Hypertension Portal (HCC) #6 Secondary Esophageal Varices Without Bleeding (HCC) #7 Unspecified Cirrhosis Of Liver (HCC) #8 Stricture Esophagus #9 Thrombocytopenia (HCC) Food impaction followed by aspiration pneumonitis. Hypoxemia with requirement of 4 L by NC, now off. Lactate has decreased to 2.8. PLAN: - Observe in ICU. Now off oxygen. Awake, alert and in no acute distress. - Passed bedside swallow. - Ceftriaxone, transition to PO Augmentin. - VTE ppx. Please see today's critical care admission note for the systems-based plan. * Radha Danielle, Pharm.D., R.Ph., [facility] - 08/25/2023 8:29 PM CDT Images from the original note were not included. Admission Medication History Note Adherence issues: No concerns Medication list source: Patient, Care Everywhere or chart review, and Pharmacy or dispense records Medication related information: Patient reports taking eplerenone twice daily Prior to Admission Medications Med List Status: Pharmacy Complete Set By: Radha Danielle, Pharm.D., R.Ph., [facility] at 08/25/2023 8:29 PM Taking? Last Dose Informant Start Date End Date LT ascorbic acid, vitamin C, (VITAMIN C) 500 mg tablet Past Week -- -- -- Take 500 mg by mouth daily. cholecalciferol (VITAMIN D3) 125 mcg (5,000 Unit) tablet Past Week -- -- -- Take 125 mcg by mouth daily. empagliflozin (JARDIANCE) 10 mg tablet Past Week -- 12/05/20 -- Take 1 tablet by mouth daily. eplerenone (INSPRA) 50 mg tablet Past Week -- 01/12/23 01/12/24 Take 2 tablets (100 mg total) by mouth daily. Patient taking differently: Take 50 mg by mouth 2 (two) times a day. ferrous gluconate (FERGON) 324 mg (38 mg iron) tablet Past Week -- -- -- Take 324 mg by mouth daily. furosemide (LASIX) 20 mg tablet Past Week -- 07/05/20 -- Take 20 mg by mouth 2 (two) times a day. metFORMIN XR (GLUCOPHAGE-XR) 500 mg 24 hr tablet Past Week -- -- -- 500 mg 2 (two) times a day. omeprazole (PriLOSEC) [address] capsule Past Week -- 07/20/20 -- Take 20 mg by mouth every morning before breakfast. rosuvastatin (CRESTOR) 20 mg tablet Past Week -- 05/15/20 -- Take 20 mg by mouth daily. Radha Danielle PharmD [phone] * Kenneth Mcnally M.D. - 08/25/2023 6:22 PM CDT Images from the original note were not included. MICU ADMISSION NOTE SUBJECTIVE CHIEF COMPLAINT Shock and respiratory failure HISTORY OF PRESENT ILLNESS Mr. Niko Rodriguez is a 72 y.o. male admitted to the MICU for shock and respiratory failure following aspiration event after EGD for impaction. Medical Comorbidities: - cirrhosis secondary to autoimmune hepatitis complicated by esophageal varices, ascites, and thrombocytopenia - type 2 diabetes mellitus - gastroesophageal reflux disease - essential hypertension - esophageal stricture - DVT (01/2022) - hyperlipidemia - osteoarthritis Events Preceding Admission: - the patient initially presented to the emergency department on 08/23 for an impacted piece of steakin his esophagus. He had steak around 1700 on 08/23 and states he could feel it is stuck in his throat. He was unable to swallow saliva and was having some pain in the epigastric area. He trialed swallowing carbonated beverages at home without success. He had throat discomfort, irritation, and hiccups similar to his previous episodes. He does have a history of food impaction in the past dating back to 2021 (vegetable material) and 2022 (steak) in the setting of post band ligation stricture. The GI bleed team was consulted and the patient underwent EGD. They were able to successfully remove the piece of steak in the lower 3rd of the esophagus. He would small esophageal varices, portal hypertensive gastropathy, and congested mucosa in the duodenum. Following the procedure, around 1330, the patient began rigoring and became hypoxic. Lactate was initially 2.3 which climbed to 9.95. Chest x-ray was obtained which showed concerns for aspiration pneumonia. He was given 2 L of fluid and started on ceftriaxone and Flagyl. Patient was then transferred to the MICU for further management. Emergency Department Course: - Initial vitals: 36.9?? C, heart rate 80, respiratory rate 20, 107/70, SpO2 98% on room air - CBC Lab Results Component Value Date WBC 4.0 08/25/2023 HGB 11.9 (L) 08/25/2023 HCT 35.2 (L) 08/25/2023 MCV 95.1 08/25/2023 PLT 64 (L) 08/25/2023 - BMP Lab Results Component Value Date NA 139 08/25/2023 KSERUM 3.5 (L) 08/12/2023 KBLOOD 3.8 08/25/2023 KPLASMA 3.8 08/25/2023 CL 103 08/25/2023 BICARB 18 (L) 08/25/2023 CREATININE 0.90 08/25/2023 CREATPOC 1.10 10/30/2022 EGFRBLKAA 67 09/16/2021 EGFRNONBLKAA 58 (L) 09/16/2021 POCEGFRNONAA 60 09/16/2021 EGFR 90 08/25/2023 BUN 21 08/25/2023 ANIONGAP 18 (H) 08/25/2023 GLUCOSE 137 08/25/2023 GLUCOSEPOC 150 (H) 08/25/2023 CALCIUM 9.2 08/25/2023 - HFP Lab Results Component Value Date ALT 38 08/25/2023 AST 46 08/25/2023 ALKPHOS 270 (H) 08/25/2023 BILITOT 1.3 (H) 08/25/2023 - EKG: Poor data quality. Possible atrial fibrillation with low voltage QRS complexes in the limb leads. Nonspecific ST and T-wave abnormalities. - Imaging: CXR on 08/24 showed patchy opacities within the lung bases (left greater than right). No pleural effusion or pneumothorax. - Medications received: 2 L normal saline, 500 mg Flagyl, 2 g ceftriaxone, 15 mg ketorolac Upon Arrival to the MICU: - he was breathing comfortably on 4 L nasal cannula. This was quickly able to be weaned down to room air with saturations in the low 90s. MAPs were maintained in the 65-70 range following the fluid boluses. He denied any chest pain or dyspnea. No abdominal pain. He occasionally has some lower extremity swelling which he has not had since admission. He denies any fevers, chills, or night sweats. No recent sick contacts. SYSTEMS REVIEW Pertinent items are noted in HPI; all other review of systems was negative. OUTPATIENT MEDICATIONS Current Outpatient Medications Medication Instructions cholecalciferol (VITAMIN D3) 125 mcg, oral, Daily empagliflozin (JARDIANCE) 10 mg tablet 1 tablet, oral, Daily eplerenone (INSPRA) 100 mg, oral, Daily ferrous gluconate (FERGON) 324 mg, oral, Daily furosemide (LASIX) 40 mg, oral, 2 times daily metFORMIN XR (GLUCOPHAGE-XR) 500 mg, 2 times daily omeprazole (PRILOSEC) 20 mg, oral, Daily before breakfast rosuvastatin (CRESTOR) 20 mg, oral, Daily ALLERGIES/ADVERSE REACTIONS Allergies as of 08/24/2023 - Reviewed 08/24/2023 Allergen Reaction Noted Acetaminophen Other (see comments) and GI intolerance 09/02/2011 2-octyl cyanoacrylate Itching 05/28/2023 Celecoxib Other (see comments) 06/12/2020 PAST MEDICAL/SURGICAL HISTORY Past Medical History: Diagnosis Date Arthritis Rheumatoid (HCC) Cataract Diabetes Mellitus NOS Gastroesophageal Reflux Disease NOS Hyperlipidemia Hypertension NOS Liver Disease Other Specified Health Status Renal Disease Stricture Esophagus Varix Esophageal (HCC) SOCIAL HISTORY Social History Socioeconomic History Marital status: Highest education level: Bachelor's degree (e.g., BA, AB, BS) Tobacco Use Smoking status: Never Smokeless tobacco: Never Vaping Use Vaping status: never used Substance and Sexual Activity Alcohol use: Not Currently Comment: Don???t drink Drug use: Never Sexual activity: Yes Partners: Female control/protection: None Social Determinants of Health Food Insecurity: No Food Insecurity (08/25/2023) Hunger Vital Sign Worried About Running Out of Food in the Last Year: Never true Ran Out of Food in the Last Year: Never true Transportation Needs: No Transportation Needs (08/25/2023) PRAPARE - Transportation Lack of Transportation (Medical): No Lack of Transportation (Non-Medical): No Intimate Partner Violence: Not At Risk (08/25/2023) Humiliation, Afraid, Rape, and Kick questionnaire Fear of Current or Ex-Partner: No Emotionally Abused: No Physically Abused: No Sexually Abused: No Housing Stability: Low Risk (08/25/2023) Housing Stability Housing: Living Situation: I have a steady place to live FAMILY HISTORY Family History Problem Relation Name Age of Onset Rheum arthritis Father fernanda rodriguez no Diabetes Father fernanda rodriguez no Stroke Father fernanda rodriguez no Arthritis Father fernanda rodriguez no Hypertension Mother frankie rodriguez no Coronary artery disease Mother frankie rodriguez By pass surgery OBJECTIVE VITAL SIGNS Temperature: [36.9 ??C-39 ??C] 37.2 ??C Heart Rate: [0-132] 75 Resp Rate: [13-37] 20 Blood Pressure: (75-145)/(41-91) 95/52 SpO2: [88 %-98 %] 95 % Flow Rate (L/min): [0 L/min-4 L/min] 0 L/min Height: [172 cm] 172 cm Weight: [65 kg-66 kg] 66 kg BSA (Calculated - sq m): [1.77 sq meters] 1.77 sq meters BMI (Calculated): [22.3 kg/m??] 22.3 kg/m?? Pulse Rate: [56-123] 75 I/O / 0701 06/04 0700 / 0701 06/05 0700 Crystalloid Bolus 1000 Maintenance IV 700 Total Intake(mL/kg) 1700 (25.8) Urine (mL/kg/hr) 450 (0.5) Blood 0 Total Output 450 Net +1250 PHYSICAL EXAM General: Alert, interactive, not acutely ill. Skin: No rashes or lesions. No chest wall crepitus. Eyes: Pupils equal and round. Sclera anicteric. ENT: Hearing grossly intact. Dentition intact. Posterior oropharyngeal abrasions secondary to recent EGD. Lymph: No cervical or subclavicular adenopathy. Lungs: Crackles present in the left lower lung base. No crepitations to palpation over the anteriorchest. Heart: Regular rate and rhythm. No murmurs appreciated. No lower extremity edema. Abdomen: Umbilical hernia present which is mildly tender to palpation but easily reducible. Left-sided inguinal hernia present which is easily reducible. No abdominal distention or pain to palpation.Bowel sounds present. Neuro: Alert and oriented x4. No asterixis. Able to move all extremities on command. Extraocular eye movements intact. LABS AND IMAGING - as above ASSESSMENT / PLAN Mr. iNko Rodriguez is a 72 y.o. 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 Admitted to the MICU for further evaluation and management of sepsis secondary to aspiration pneumonia. Upon arrival to the ICU, the patient was hemodynamically stable with maps in the high 60s. He was adequately fluid resuscitated in the ED with stability in his blood pressure so additional fluids were not given. He did not require any pressor support. His oxygen was able to be weaned down to room air with oxygen saturations in the low 90s%. It still remains unclear whether this is true aspirationpneumonia versus aspiration pneumonitis. The patient likely had an aspiration event the evening of 08/23 following his food impaction. It still would be quite early for this to be true pneumonia if this was the inciting event for his aspiration. He does not have any history of aspiration pneumonia inthe past and denies any coughing when taking in fluids or food. His airway was also protected during the EGD. With the stricturing in his esophagus from previous variceal banding procedures, he is athigh-risk for aspiration events moving forward. We will plan to discontinue the Flagyl and continuewith IV ceftriaxone while he was in the hospital. If he remains hemodynamically stable and off oxyge n, can likely be transitioned to Augmentin with plans for a 7 day course to cover for aspiration pneumonia given the consolidation seen on chest x-ray. Concern for esophageal perforation is low at this time. He has not having any chest pain and they did not have any invasive interventions with the EGD. No free air was seen in the chest x-ray howeverthis tends to be less sensitive than CT scan. He also does not have any crepitus over his chest wall on exam. We will hold off on any further imaging at this time due to low concern. He does have decompensated cirrhosis with a history of ascites and known esophageal varices. He didrecently have paracentesis done at the end of June which did not show SBP. On exam, he does not have significant abdominal distention or positive fluid wave. Concern for SBP at this time is low. Given that he was already gotten antibiotics, if any ascitic fluid studies were to be sent they would be difficult to interpret given this so we will hold off on any paracentesis overnight. An EKG obtained in the emergency department was of low quality and question when they are there wastrue atrial fibrillation. He is not currently on any anticoagulation. Telemetry on the floor here as in sinus rhythm we will hold off on any further diagnostics. He may benefit from an outpatient Holter to identify if he truly has atrial fibrillation and may benefit from anticoagulation. His chads Vasc score is 3 which would qualify him for anticoagulation. Plan for today: - Maintain MAP >65 - s/p 30 cc/kg fluid resuscitation in ED - Continue ceftriaxone, discontinue flagyl - If stable in AM and not needing oxygen support, can transition to 6 days course of Augmentin for 7 days total of antibiotics. - Sputum gram stain and culture if able to produce sample - Blood cultures pending - DuoNebs PRN - Bedside swallow assessment - Soft diet per GI recommendations post EGD - repeat lactate and VBG; if lactate is still elevated, we will administer an additional 500 mL normal saline bolus NEURO: Plan - Sedation: none - Analgesia: Not in any pain CARDIAC: # essential hypertension # query atrial fibrillation, CHADS-VASc 3 QTc: 447 Plan - MAP goal: >65 - s/p 30 cc/kg in ED; holding off on further fluid resuscitation at this time - Vasoactive meds: None - Sinus on telemetry; may benefit from Holter in outpatient setting to identify burden of atrial fibrillation if any and need for anticoagulation RESP: # acute hypoxic respiratory failure secondary to aspiration pneumonia Plan - Oxygen via NC PRN to keep SpO2 > 90% - DuoNebs q6h PRN - Pulmonary hygiene as tolerated - Bedside swallow assessment RENAL: # elevated anion gap metabolic acidosis secondary to elevated lactate Past 24 hours: Intake/Output Summary (Last 24 hours) at 08/25/20232133 Last data filed at 08/25/20231999 Gross per 24 hour Intake 1700 ml Output 450 ml Net 1250 ml Recent Labs 08/25/23 1411 08/25/23 1410 08/25/23 1153 08/12/23 1140 NA 139 142 141 137 KSERUM -- -- -- 3.5 L KBLOOD -- 3.8 3.5 L -- KPLASMA 3.8 -- -- -- CL 103 -- -- 102 BICARB 18 L 18 24 26 BUN 21 -- -- 24 CREATININE 0.90 -- -- 0.96 Plan - Fluid goal: net even - AM RFP and magnesium GI: # history of food impaction (2021 and 2022) secondary to post band ligation strictures # recent food impaction on 08/23 s/p successful EGD disimpaction on 08/24 # decompensated cirrhosis secondary to autoimmune hepatitis # history of ascites and known varices on recent EGD (08/25/23) MELD 3.0: 11 at 08/25/2023 2:11 PM MELD-Na: 11 at 08/25/2023 2:11 PM Calculated from: Serum Creatinine: 0.90 mg/dL (Using min of 1 mg/dL) at 08/25/2023 2:11 PM Serum Sodium: 139 mmol/L (Using max of 137 mmol/L) at 08/25/2023 2:11 PM Total Bilirubin: 1.3 mg/dL at 08/25/2023 2:11 PM Serum Albumin: 3.1 g/dL at 08/25/2023 2:11 PM INR(ratio): 1.4 at 08/25/2023 2:11 PM Age at listing (hypothetical): 72 years Sex: Male at 08/25/2023 2:11 PM Stools: Last BM Date: 08/24/23 (per pt)none Plan - Nutrition: Soft mechanical diet - Bowel regimen: Senna and MiraLAX - Holding home lasix and eplerenone for ascites due to hypotension - 40 mg pantoprazole BID ENDO: # type 2 diabetes mellitus Lab Results Component Value Date HGBA1C 6.4 (H) 05/12/2023 Recent Labs 08/25/23 1411 08/12/23 1140 GLUCOSE 137 116 Plan - Goal blood glucose 140 - 180 mg/dL (doi:[id number]) - POC glucose - Holding home metformin and Jardiance - Moderate correction scale ID: # sepsis secondary to aspiration pneumonia No results found for this visit on 08/24/23 (from the past 72 hour(s)). Plan - Cultures: - Blood culture x2 collected in ED on 08/24 - Urine culture x1 collected in ED on 08/24 - Sputum culture and gram stain if able to contain - Antibiotics: s/p Rocephin and Flagyl in ED, will discontinue flagyl due to low concern for empyema or abscess. Continue rocephin while hospitalized with plan to transition to Augmentin when clinically stable. Total 7 day course of antibiotics planned. HEME: # thrombocytopenia, chronic, secondary to cirrhosis # chronic anemia (baseline Hgb 12-13) Recent Labs 08/25/23 1411 08/12/23 1141 HGB 11.9 L 11.4 L WBC 4.0 3.4 PLT 64 L 62 L Results from last 7 days Lab Units 08/25/23 1411 INR 1.4 Plan - Holding home iron supplementation due to concern for bacteremia. - Ferritin, iron, and TIBC studies in AM CHECKLIST: Prophylaxis: DVT: Subcutaneous heparin GI: Pantoprazole b.i.d. PJP: N/a Access: Lines, Drains, and Wounds Peripheral IV Duration Peripheral IV 08/25/23 20 G Right Forearm 21h Drain Duration Indwelling Urinary Catheter Double-lumen;Latex 16 Fr. 6h Wound Duration Wound 07/10/23 Puncture Abdomen Lateral;Right;Upper paracentesis site 46d 6h Wound 05/13/23 Incision Hip Anterior;Left 104d 20h Code Status: FULL CODE, discussed on admission Surrogate Decision Maker: Spouse, Esthela Rodriguez ([phone]) Plan discussed with [facility] Medicine 1 Compressor Station Operator, Dr. Rai. Please page the [facility] Medicine 1 service pager with any questions. Kenneth Mcnally MD Internal Medicine, PGY-1 Pager: [phone] Edited by: CHRISTINE Grullon, [employer] Sr. Tool Or Die Drawing Checker 09/04/23 9:49 AM CDT documented in this encounter Procedure Notes * Ese Fowler R.RDarrian, L.R.T. - 08/26/2023 10:31 AM CDTAssociated Order(s): Invasive Line Invasive Line Performed by: Ese Fowler R.RDarrian, L.R.TMarcus Authorized by: Gypsy Lu M.D. Location: ICU/PCU PROCEDURE DETAILS: Line type: arterial Laterality: left Location: radial Location details: new site Age group: adult Catheter diameter: 20 Ga Technique: ultrasound guided with GRACE confirmation of guidewire in right atrium prior to vessel dilation Ultrasound guidance: image acquired and saved Ultrasound comment: ultrasound guidance used demonstrating vessel patency and cannulation of the vessel observed. Monitored: yes Number of attempts: 1 UNIVERSAL PROTOCOL All [...] utilized as applicable for the procedure.: yes Skin preparation: chlorhexidine SEDATION / ANESTHESIA Anesthesia method: local infiltration Local infiltrate type: lidocaine POST-PROCEDURE DETAILS: Procedure completed successfully: yes Line secured: secured with sutureless device Chlorhexidine disc around insertion site and under catheter with slight turn: yes Notable Events - arterial: none Patient tolerance of procedure: successful * Zachary Romano M.D. - 08/25/2023 5:05 PM CDTAssociated Order(s): Critical Care Procedure Critical Care Performed by: Zachary Romano M.D. Authorized by: Zachary Romano M.D. Critical care provider statement: Critical care total time (minutes): 45 CPR was performed on this patient: no Critical care was necessary to treat or prevent imminent or life-threatening deterioration of the following conditions: sepsis Critical care was time spent personally by me on the following activities: examination of patient, evaluation of patient's response to treatment, re- evaluation of patient's condition, obtaining history from patient or surrogate, ordering and performing treatments and interventions, ordering and review of laboratory studies, development of treatment plan with patient or surrogate, ordering and review of radiographic studies, pulse oximetry, discussions with consultants and documenting in the patient chart I assumed direction of critical care for this patient from another provider in my specialty: no Zachary Romano M.D. 08/27/23 1004 documented in this encounter Consult Notes * Carson Jhaveri M.D. - 08/26/2023 11:18 AM CDT [facility] ICU Infectious diseases patient consultation/supervisory note Patient seen and examined. I agree with the history, documentation, examination, impression and recommendations as nicely outlined by Alannah Alvarez in her ID consultation note from today. Patient radha 72-year-old male from [place] with underlying autoimmune hepatitis with associated hepatic cirrhosis, esophageal varices, esophageal stricture, type 2 diabetes. Patient previously had esophagealobstruction by food in October of last year. This occurred again on August 23 with a piece of steak impacted in the esophagus. Patient underwent EGD with removal of food bolus in the lower 3rd of the esophagus. Postprocedurally, patient became hypoxic with lower lung infiltrates identified on chest x-ray. Blood cultures were collected at the that time and patient was started on intravenous ceftriaxone and metronidazole. Blood cultures later grew Clostridium perfringens (after 9 hours) and more recently identified 2nd bacteria - Gram- positive cocci. Overall, patient is clinically stable. Lactate was initially elevated at 2.3 subsequently increasedto 9.9. After removal of food bolus, patient tells me that he feels notably improved. He is in the medical ICU and more relaxed this morning; off of supplemental oxygen. OBJECTIVE Vitals: 08/26/23 1100 BP: Pulse: (!) 54 Resp: 20 Temp: SpO2: 94% ASSESSMENT / PLAN Impression 1. Polymicrobial bloodstream infection Clostridium perfringens and Gram-positive cocci 2. Recent lower esophageal impaction with food/meat, status post removal via EGD August 23 3. Postprocedural hypoxia, respiratory insufficiency query aspiration 4. Autoimmune hepatitis with associated hepatic cirrhosis, esophageal varices 5. Type 2 diabetes Overall, patient remains clinically stable. Source of bacteremia most likely is from the GI tract -whether reflective of esophageal compromise from food impaction, EGD procedure or unrelated lower GI tract is unclear at this point in time. Chest x-ray does not demonstrate any mediastinal free air or esophageal compromise, although chest x-ray is not the best radiologic study to show this. Patient's abdominal exam is not overly impressive Recommendations - I agree with the recommendations as outlined by Marcia Alvarez 1. For now continue IV ceftriaxone, metronidazole and agree with the addition of IV vancomycin for now 2. Await further identification from our laboratory on the Gram-positive cocci bacteria 3. Primary service has scheduled CT abdomen pelvis which I think is appropriate; would also includeCT chest if possible - looking specifically for lower esophageal compromise, paraesophageal/mediastinal free air or fluid collection The rest of the impression and recommendations as nicely outlined by Alannah Alvarez. We will continue to follow carefully with you * Alannah Alvarez APRN, C.N.P., M.S.N. - 08/26/2023 7:26 AM CDTAssociated Order(s): IP CONSULT TO INFECTIOUS DISEASES ICU Infectious Disease SUBJECTIVE REASON FOR CONSULT We are seeing Mr. Rodriguez at the request of Gypsy Lu M.D. to give further recommendations for evaluation and management of Clostridia perfringens bacteremia in setting of aspiration pneumonia and recent EGD for food impaction; please advise on antibiotic regimen (currently on flagyl and rocephin). HISTORY OF PRESENT ILLNESS Niko Rodriguez is a 72 yo M with past medical history of cirrhosis with associated esophageal varices, esophageal strictures requiring prior dilations, type 2 diabetes, hx of DVT. Mr. Pope was eating steak at 1700 08/23 when he felt that the food became stuck. He was unable to swallow saliva. Hehad a similar event in October 2022 where he aspirated steak, requiring EGD removal. [facility] ED and underwent EGD food bolus removal 08/24. Shortly after, he suffered a 30 minute episode of rigors and tachypnea and his lactate ritu to 9.9. CXR showed bilateral patchy opacities concerning for aspiration. He was started on ceftriaxone and flagyl. Blood cultures showed 1/2 bottles Clostridium perfringens. He was transferred to the MICU and weaned off oxygen. Lactate decreased to 1.9. Overall seemed to be improving. However, began to become hypotensive this morning, requiring increasing doses of norepinephrine. Review of systems Review of systems was negative except to what is mentioned in the history of present illness section OBJECTIVE PHYSICAL EXAMINATION Vital Signs: I have reviewed the current vital sign data as applicable. Vitals and nursing note reviewed. Constitutional Appearance: Normal appearance. He is not ill-appearing. HENT Head: Normocephalic. Nose: Nose normal. Mouth/Throat: Mouth: Mucous membranes are moist. Eyes Pupils: Pupils are equal, round, and reactive to light. Cardiovascular Rate and Rhythm: Normal rate and regular rhythm. Pulses: Normal pulses. Heart sounds: Normal heart sounds. Pulmonary Effort: Pulmonary effort is normal. No respiratory distress. Breath sounds: Normal breath sounds. No wheezing or rhonchi. Comments: Nonproductive cough Abdominal Palpations: Abdomen is soft. Musculoskeletal General: Normal range of motion. Cervical back: Normal range of motion. Skin General: Skin is warm and dry. Capillary Refill: Capillary refill takes less than 2 seconds. Neurological General: No focal deficit present. Mental Status: He is alert. GENERAL APPEARANCE: HEENT: CARDIOVASCULAR: RESPIRATORY: ABDOMINAL: GENITOURINARY: MUSCULOSKELETAL: SKIN: NEUROLOGIC: Lines/ drains: Lines, Drains, and Airways Drain Duration Indwelling Urinary Catheter Double-lumen;Latex 16 Fr. 16h Peripheral IV Duration Peripheral IV 08/25/23 20 G Anterior;Left;Lower Forearm 9h Peripheral IV 08/25/23 20 G Right Forearm 1d 7h Wound Duration Wound 07/10/23 Puncture Abdomen Lateral;Right;Upper paracentesis site 46d 16h Wound 05/13/23 Incision Hip Anterior;Left 105d 6h DIAGNOSTICS: I have reviewed diagnostics including labs, micro, imaging. Antimicrobials: - Ceftriaxone 2 g every 24 hours - started 08/24 - Metronidazole 500 mg every 8 hours - started 08/24 ASSESSMENT / PLAN #1 Diabetes Mellitus Type 2 (HCC) #2 Hepatitis Autoimmune (HCC) #3 Hypertension Portal (HCC) #4 Secondary Esophageal Varices Without Bleeding (HCC) #5 Unspecified Cirrhosis Of Liver (HCC) #6 Stricture Esophagus #7 Thrombocytopenia (HCC) #8 Sepsis (HCC) #9 Pneumonitis Due To Inhalation Of Food And Vomit (HCC) - Clinical pictures initially looked improved. Lactate resolved. Afebrile. No white count. Patient awake and alert. However, patient increasingly hypotensive this morning requiring norepinephrine andplacement of arterial line. - Blood cultures show 1/2 clostridium perfringens bacteremia after 9 hours. Source likely aspiration pneumonia. Treating with ceftriaxone/flagyl. 1/2 blood cultures shows staph epi after 18 hours, likely contamination but cannot rule out infection consider new pressor requirements. - Repeat blood cultures pending - Sputum pending if able to obtain - UA not concerning for infection Recommendations: - Continue ceftriaxone/flagyl - Vancomycin added before staphylococcus completed result as staph epi. Consider de-escalation if repeat cultures negative. - CT abdomen/pelvis to r/o alternative source of infection considering infectious burden of clostridium perfringens positive after only 9 hours and relatively short of amount of time since aspirationevent. - CT chest to r/o esophageal tear/fistula. documented in this encounter Nursing Notes * Ricky Ramírez, R.N. - 08/28/2023 6:41 AM CDT Problem: PAIN - ADULT Goal: PT VERBALIZES/DEMONSTRATES ADEQUATE COMFORT LEVEL OR BASELINE Outcome: Progressing Problem: KNOWLEDGE DEFICIT Goal: Patient/family/caregiver demonstrates understanding of disease process, treatment plan, medications, and discharge instructions Outcome: Progressing Problem: INFECTION - ADULT Goal: Absence of infection during hospitalization Outcome: Progressing Problem: SKIN/TISSUE INTEGRITY Goal: Skin/Tissue integrity maintained or improved Outcome: Progressing Goal: Oral and Nasal mucous membranes remain intact Outcome: Progressing Problem: SAFETY ADULT Goal: Maintain a safe environment Outcome: Progressing Problem: DISCHARGE PLANNING Goal: Patient discharge needs identified Outcome: Progressing Problem: SAFETY ADULT - RISK FOR FALL AND OR FALL INJURY Goal: Patient remains free from fall/fall injury Outcome: Progressing Problem: CARDIOVASCULAR - ADULT Goal: Maintains optimal cardiac output and hemodynamic stability Outcome: Progressing Shift Goals: Clinical Goals for the Shift: Patient will remain free from falls and injury during shift. Identify possible barriers to meeting goals/advancing plan of care: no End of Shift Summary: The patient is hemodynamically stable and slept very well. * Molly Gutiérrez R.N. - 08/27/2023 4:23 PM CDT Problem: PAIN - ADULT Goal: PT VERBALIZES/DEMONSTRATES ADEQUATE COMFORT LEVEL OR BASELINE Outcome: Progressing Problem: SKIN/TISSUE INTEGRITY Goal: Skin/Tissue integrity maintained or improved Outcome: Progressing Problem: SAFETY ADULT Goal: Maintain a safe environment Outcome: Progressing Problem: SAFETY ADULT - RISK FOR FALL AND OR FALL INJURY Goal: Patient remains free from fall/fall injury Outcome: Progressing Shift Goals: Clinical Goals for the Shift: Patient will remain free from falls and injury during shift. Identify possible barriers to meeting goals/advancing plan of care: diagnosis End of Shift Summary: Patient remained free from falls and injury during shift. AOx3, VSS on RA, SBA. IV metronidazole and IV ceftriaxone continued. Nicholson catheter removed. * Estelle Hernandez R.N. - 08/27/2023 10:36 AM CDT Patient Transfer Note Patient transferred to: [facility] Accompanied by: GLOBAL CLIMATE CHANGE RESEARCHER Report called? Yes [facility] Belongings sent with patient? YES Current vital signs: Vitals: 08/27/23 1030 BP: 100/65 Pulse: 70 Resp: 16 Temp: 36.8 ??C SpO2: 98% Critical Care Service aware of current vital signs? YES Electronically signed by: Estelle Hernandez R.N. 08/27/23 10:38 AM CDT * Ti Gruber R.R.T., LMarcusRMarcusT., KENO WRITER / [facility] - 08/27/2023 6:48 AM CDT Patient is a 72 y.o. male admitted on 08/24/2023 Recent Surgery: Principal Problem: Pneumonitis Due To Inhalation Of Food And Vomit (HCC) PMH: Past Medical History: Diagnosis Date Arthritis Rheumatoid (HCC) Cataract Diabetes Mellitus NOS Gastroesophageal Reflux Disease NOS Hyperlipidemia Hypertension NOS Liver Disease Other Specified Health Status Renal Disease Stricture Esophagus Varix Esophageal (HCC) Significant Events During Current Stay: Shift Summary: Pt remained on 1L NC throughout the night, no repiratory concerns at this time. Plan of Care: Ambulate as tolerated, Continue to encourage coughing and deep breathing, Anesthesia bag and mask at bedside, Wean supplemental oxygen as tolerated by patient, and Manage hemodynamic lines per protocol Airway: Oxygen Therapy: $Delivery Method: Room air Flow Rate (L/min): 1 L/min Non-Invasive Support: Hemodynamic monitoring: Arterial Line 08/26/23 Left Radial (Active) Placement Date/Time: 08/26/23 (c) 6984 Procedural Pause Completed: Yes Catheter Time Out Checklist Completed: Yes Hand Hygiene Performed Prior to Insertion: Yes Site Prep: Chlorhexidine (Preferred) Sterile Barriers Used : Cap;Gloves;Gown;Large d... Recent ABG: No results for input(s): PO2 ART, PCO2 ART, PH ART, HCO3 ART, BASE EXC ART in the last 24hours. Ti Gruber R.R.T., L.R.TMarcus, [employer] / [facility] 08/27/23 6:48 AM CDT Electronically signed by Ti Gruber R.R.T., LMarcusR.TMarcus, [employer] / [facility] at 08/27/2023 6:49 AM CDT * Ese Fowler R.R.T., L.R.T. - 08/26/2023 6:49 PM CDT Patient is a 72 y.o. male admitted on 08/24/2023 Chief Complaint: Chief Complaint Patient presents with Food Bolus Shift Summary: 08:00 Patient remains 1 lpm nasal cannula, and no respiratory issues at this time. 10:30 Arterial Line placement completed for hemodynamic monitoring ans access. Respiratory Therapies and Medications: DuoNeb QID PRN PLAN OF CARE: RT will continue to assess respiratory status while in the ICU, and provide respiratory care as needed. RT to provide supplemental oxygen, manage oxygen devices and hemodynamic lines per protocol. Oxygen Therapy: $Delivery Method: Nasal cannula Flow Rate (L/min): 1 L/min Hemodynamic monitoring Arterial Line 08/26/23 Left Radial (Active) Placement Date/Time: 08/26/23 (c) 8246 Procedural Pause Completed: Yes Catheter Time Out Checklist Completed: Yes Hand Hygiene Performed Prior to Insertion: Yes Site Prep: Chlorhexidine (Preferred) Sterile Barriers Used : Cap;Gloves;Gown;Large d... Principal Problem #1 Diabetes Mellitus Type 2 (HCC) #2 Hepatitis Autoimmune (HCC) #3 Hypertension Portal (HCC) #4 Secondary Esophageal Varices Without Bleeding (HCC) #5 Unspecified Cirrhosis Of Liver (HCC) #6 Stricture Esophagus #7 Thrombocytopenia (HCC) #8 Sepsis (HCC) #9 Pneumonitis Due To Inhalation Of Food And Vomit (HCC) Electronically signed by: Ese Fowler R.R.T., L.R.TMarcus 08/26/23 6:49 PM CDT * Jayda Bradley R.N. - 08/26/2023 5:07 AM CDT Problem: SAFETY ADULT Goal: Maintain a safe environment Outcome: Progressing; safety equipment at bedside Problem: CARDIOVASCULAR - ADULT Goal: Maintains optimal cardiac output and hemodynamic stability Outcome: Progressing; MAP >60 Shift Goals: Clinical Goals for the Shift: pt will maintain MAP goal >60 Identify possible barriers to meeting goals/advancing plan of care: ICU level of care End of Shift Summary: Pt admitted to MICU around 1930. On 4L NC at time of admission but quickly titrated to room air with sats >90%. MAP goal >60. 500 ml fluid bolus administered. Repeat lactate. Pt rested comfortably overnight. Electronically signed by: Jayda Bradley R.N. 08/26/23 5:07 AM CDT documented in this encounter ED Notes * Jovani Salomon M.D. - 08/25/2023 5:11 PM CDT Care of patient transferred to mo by Dr. Romano. Disposition pending Repeat lactate and discussion with the MO D to determine floor vs. ICU admit. VITAL SIGNS BP (!) 97/49 Pulse 83 Temp (!) 38.2 ??C Resp 21 Wt 65 kg SpO2 97% BMI 23.03 kg/m?? ED Course as of 08/25/23 173ThuAug 25, 2023 173 Lactate improved but did not clear completely. Blood pressures remain on hypotensive side though MAPs are 65 so not starting norepinephrine yet. On reassessment he is resting comfortably. Saturating well on 4 L by nasal cannula. Plan will be admission to the MICU, [facility] 1 team for close monitoring Final Diagnoses: as of 08/25/231736 Pneumonia Food In Esophagus Causing Other Injury Initial Acidosis Lactic I have personally seen and examined this patient. I have fully participated in the care of this patient. I have reviewed all clinical information including history, physical exam, orders, and plan. [place] with the note of the resident. Jovani Salomon M.D. 08/25/231736 * Rickie Sutherland M.D. - 08/25/2023 5:03 PM CDT VITAL SIGNS BP (!) 97/49 Pulse 83 Temp (!) 38.2 ??C Resp 21 Wt 65 kg SpO2 97% BMI 23.03 kg/m?? ED Course as of 08/25/231744Aug 25, 2023 1637 Patient signed out to me. I met the patient. He was sleeping. Wakes to voice. Currently complains of no pain, lightheadedness, nausea, vomiting. Lactate rechecked, now down to 4 from 9.9. He has been treated for aspiration pneumonia. His abdomen is soft, nontender, nondistended. He was taking sips of water without any difficulty swallowing orpain. I have reached out to the medical office technology instructor of the day to determine best level of care. 1701 [facility] requested I reach out to the CCOD regarding potential observation inthe unit overnight. 1723 I spoke to the CCU OD. They have accepted the patient to critical care. They will assign a team. 1745 Patient signed out to the ICU. Final Diagnoses: as of 08/25/23 1745 Pneumonia Food In Esophagus Causing Other Injury Initial Acidosis Lactic Rickie Sutherland M.D. Resident 08/25/23 1745 * Annia Guerra M.S.Rian., R.N. - 08/25/2023 12:27 PM CDT Assessed this patient who presented last evening with a food bolus. Pt has a PMHx of esophageal stricture with dilatations. He underwent food bolus removal under anesthesia this morning. Pt returned to the ED to recover with plan to discharge home. Pt states he drove himself to the ED from his home in [place]. He has no family member her with him as his is up [place] and his children live in other states. Pt would like to drive himself home however, he was informed as he had anesthesia, he would need someone to drive him. Additionally, the patient has a previously scheduled CT abdomen with his GI team in the am at 0700. Plan is to have the patient eat and ambulate prior to discharge. Given some applesauce. Pt c/o painwith swallowing but does not want something for pain. He states he cannot take Tylenol due to his liver disease. Vianney Escobar informed of the patient's need for transportation arrangements. Annia Guerra M.S.N., R.N. 08/25/23 1424 * Vianney Escobar APRN, C.N.P., D.N.P., M.S.N. - 08/25/2023 9:32 AM CDT Care of patient transferred to mo by Dr. Aldridge. Disposition pending EGD for food bolus. VITAL SIGNS BP (!) 93/49 Pulse 80 Temp (!) 38.2 ??C Resp 20 Wt 65 kg SpO2 95% BMI 23.03 kg/m?? ED Course as of 08/25/231622Aug 25, 2023 0933 Patient underwent endoscopy. They reportedly were able to pass the food bolus and perform a dilation. They recommend follow-up in outpatient setting in one month for repeat ABG. They recommend he remain on a mechanical soft diet until follow-up. 1148 Patient more awake and conversant at this time. He is interested in trying some juice. He has been somewhat drowsy so we will obtain a VBG and lactate to ensure that nothing else is going on. Ultimately if he is able to tolerate liquids and can ambulate safely we will hopefully be able to discharge him home. 1229 pH, Venous, POCT, B: 7.37 1229 Glucose, POCT, B: 118 1229 Lactate, POCT(!): 2.30 1332 Patient began rigoring and became hypoxic. Will obtain sepsis labs and a chest x-ray. 1439 Hemoglobin(!): 11.9 1439 Platelet Count(!): 64 1439 Leukocytes: 4.0 1439 Lactate, POCT(!): 9.95 1439 INR: 1.4 1439 pH, Venous, POCT, B(!): 7.27 1439 pCO2, Venous, POCT, B(!): 40 1452 Potassium, P: 3.8 1452 Sodium, P: 139 1452 Creatinine: 0.90 1452 Glucose, P: 137 1504 DX Chest AP or PA and Lateral 2 Views Narrative & Impression EXAM: DX CHEST AP OR PA AND LATERAL 2 VIEWS IMPRESSION: Patchy opacities within the lung bases, left greater than right, could be secondary to aspiration/pneumonitis, less likely atelectasis. No definite pleural effusion or pneumothorax. Low lung volumes accentuate heart size and pulmonary vascularity. Osseous demineralization. Suture anchor right humeral head. 162 Lactate, POCT(!): 4.49 162 Patient covered with ceftriaxone and flagyl for presumed aspiration pneumonia. He is feeling better. Care signed out to oncoming team who will facilitate admission Final Diagnoses: as of 08/25/23 1623 Pneumonia Food In Esophagus Causing Other Injury Initial Acidosis Lactic Vianney Escobar APRN, C.N.P., Shirlene, M.S.N. 08/25/23 1623 * Zachary Romano M.D. - 08/25/2023 8:24 AM CDT Care of patient transferred to mo by Dr. Aldridge. Disposition pending The patient is awaiting EGD treatment by the GI bleed team for a food bolus. VITAL SIGNS BP 110/72 (BP Location: Right arm, Patient Position: Semi-recumbent) Pulse 74 Temp 36.9 ??C (Oral) Resp 16 Wt 65 kg SpO2 98% BMI 23.03 kg/m?? ED Course as of 08/25/23 1441 e Aug 25, 2023 1345 I was called into his room as he has developed rigors and acute tachypnea. He does have low blood pressures at baseline and had low blood pressures status post to the EGD. Actually his blood pressure has now improved after 2 L of IV fluids. His current blood pressure is 103/67. Our concern with the acute rigors and tachypnea as well as new hypoxia is that he could potentially have an aspiration pneumonia either from before or during the procedure. He could also have fluid overload, although he has no clear signs of this on exam. 1412 He is now feeling better in his vital signs have stabilized. He is no longer tachycardic or tachypneic. His oxygen saturation is 95%. His current blood pressure is normal. 1440 On my interpretation, the chest x-ray shows signs of a left lower lobe pneumonia. I did not see any recent old chest x-rays for comparison. The patient is receiving ceftriaxone and Flagyl. He will be admitted to a medical service for further care and management. Final Diagnoses: as of 08/25/23 1441 Pneumonia Food In Esophagus Causing Other Injury Initial Acidosis Lactic I have personally seen and examined this patient. I have fully participated in the care of this patient. I have reviewed all clinical information including history, physical exam, orders, and plan. [place] with the note of the resident. I personally performed the substantive portion of this service which was medical decision-making. Pertinent MDM details included below. Refer to the STITCH BURNISHER/PA???s note for additional details. Zachary Romano M.D. 08/25/23 0824 Zachary Romano M.D. 08/27/23 1005 * Yao Yoon M.D. - 08/25/2023 12:25 AM CDT SUBJECTIVE CHIEF COMPLAINT/REASON FOR VISIT Food Bolus HISTORY OF PRESENT ILLNESS The patient is a 72-year-old man with cirrhosis and secondary esophageal varices whose last esophagogastroduodenoscopy was performed in October of 2022 which found steak impacted in the esophagus secondary to previous band ligation stricture in the lower 3rd of the esophagus, also seen were small esophageal varices, portal hypertensive gastropathy, prominent Madeleine's glands of the duodenum. He comes to the emergency department today with presentation of steak again failing to pass around 5:00 a.m.. He is unable to swallow saliva. He is having significant discomfort. He is having hiccuping, belching, nausea related to it. This feels very similar to prior episodes. REVIEW OF SYSTEMS OBJECTIVE Initial Vitals Temperature 08/24/23 2220 36.9 ??C Pulse Rate 08/24/23 2220 80 Heart Rate -- Resp Rate 08/24/23 2220 20 Blood Pressure 08/24/23 2220 107/70 SpO2 08/24/23 2220 98 % Pain Score 08/24/23 2219 6 PHYSICAL EXAMINATION Constitutional: Nursing note and vitals reviewed. No distress. Cardiovascular: Pulses are strong and palpable. Pulmonary/Chest: Effort normal. Abdominal: Soft. There is no abdominal tenderness. Musculoskeletal: General: Normal range of motion. Neurological: Alert and oriented to person, place, and time. Skin: Skin is normal color. He is not diaphoretic. Psychiatric: He has a normal mood and affect. Behavior is normal. ASSESSMENT/PLAN Assessment and Plan The history of present illness and exam are consistent with esophageal food impaction. He has triedcarbonated drink without success. We will give him glucagon and try that to see if that will assistpassage. I have a low confidence level that it will based on his history. If 2 episodes of that do not help then we will call the endoscopy team to assist him.. ED Course as of 08/25/23 0128 ThuAug 25, 2023 0112 I spoke with the endoscopy team because the patient had the multiple doses of glucagon and although he did vomit a little bit of steak continues to be symptomatic. He is intermittently now able to swallow his secretions but not consistently. The endoscopy team is going to see if they are able to assist us in performing the procedure. 0128 The endoscopy team is available unfortunately there has no anesthesia available right now. Most likely this will end up being into the morning. I did discuss that with the patient. Yao Yoon M.D. 08/25/23 0030 * Jeanie Mcrae RAyanna. - 08/24/2023 10:21 PM CDT Patient with a Hx of food boluses and multiple EGD's today at 1700 was eating steak and feels as ifthe food is stuck, pt is unable to swallow saliva and is having pain in the epigastric area. Jeanie Mcrae R.N. 08/24/23 2223 documented in this encounter Miscellaneous Notes * Hospital Course - Clemente Baer M.D. - 08/27/2023 8:24 AM CDT Mr. 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 On initial presentation, patient was normotensive, afebrile, and on RA. GI was consulted and patient underwent EGD on 08/24 with successful removal of the food bolus. Unfortunately, following procedure, patient became increasingly hypoxemic and was noted to have increased lactate to 9.95. CXR was then obtained, which was concerning for potential aspiration pneumonia. He was admitted to the ICU for further management, and was on 4L NC and pressors intermittently.Of note, his blood cultures grew C perfringens in 1/2 bottles of 1/[address] abdomen/pelvis was done to look for other sources, and this was unrevealing. Infectious Disease was consulted and recommended IV ceftriaxone and Flagyl, for a total duration treatment of 14 days. Upon discharge, this was transitioned to oral Levaquin and Flagyl. He was discharged on 08/27 to home. Medication changes: Levaquin 750mg stop date 09/07 Metronidazole 500mg PO TID - stop date 09/07 Issues to followup on: Repeat EGD for dilation in 4 weeks F/u with Dr. Reynoso on 11/09 (note - CT abdomen was done inpatient and this was cancelled) Primary care - followup on further diabetes medication titration. While inpatient his blood sugars were consistently >130 and his Jardiance was held documented in this encounter Plan of Treatment Upcoming Encounters Date Type Department Care Team (Latest Contact Info) Description 09/17/2023 10:30 AM CDT Office Visit [facility] in [place], [place] [address] [place] [phone] Elen Gomes M.D., Ph.D. [address] [place] [phone] 10/16/2023 11:00 AM CDT Appointment Division of Gastroenterology in [place], [place] [address] [place] [phone] Marv Myrick M.D., M.P.H. [address] [place] [phone] Discharge Disposition: Home or Self Care 11/10/2023 8:00 AM CDT Appointment Department of Laboratory Medicine and Pathology, [facility] in [place], [place] [address] [place] [address] Marv Myrick M.D., M.P.H. [address] [place] [phone] 11/10/2023 3:00 PM CDT Office Visit Division of Gastroenterology in [place], [place] [address] [place] [phone] Marv Myrick M.D., M.P.H. [address] [place] [phone] Pending Results Name Type Priority Associated Diagnoses Date /Time Bacteria / Jenna Culture, Blood #1 Microbiology STAT 08/25/2023 1:5 8 PM CDT Scheduled Orders Name Type Priority Associated Diagnoses Orde r Schedule Gram Stain Microbiology Routine Routine lab collection (next collection) for 1 Occurrences starting 08/25/2023 until 08/25/2023 Bacterial Culture, Aerobic + Susceptibility, Respiratory Microbiology Routine Routine lab collection (next collection) for 1 Occurrences starting 08/25/2023 until 08/25/2023 documented as of this encounter Procedures Procedure Name Priority Date/Time Associated Diagnosis Comments GLUCOSE POCT, B Routine 08/28/2023 12:23 PM CDT GLUCOSE POCT, B Routine 08/28/2023 8:54 AM CDT CBC WITHOUT DIFFERENTIAL, B Routine 08/28/2023 5:05 AM CDT BASIC METABOLIC PANEL, S/P Routine 08/28/2023 5:05 AM CDT GLUCOSE POCT, B Routine 08/27/2023 8:47 PM CDT GLUCOSE POCT, B Routine 08/27/2023 5:[address] ABDOMEN PELVIS WITH IV CONTRAST RAD - Routine (most inpatients and all outpatients) 08/27/2023 12:39 PM CDT GLUCOSE POCT, B Routine 08/27/2023 11:23 AM CDT GLUCOSE POCT, B Routine 08/27/2023 7:54 AM CDT CBC WITH DIFFERENTIAL, B STAT 08/27/2023 6:07 AM CDT MAGNESIUM, S STAT 08/27/2023 6:07 AM CDT BASIC METABOLIC PANEL, S/P STAT 08/27/2023 6:07 AM CDT GLUCOSE POCT, B Routine 08/26/2023 5:58 PM CDT GLUCOSE POCT, B Routine 08/26/2023 3:41 PM CDT BACTERIA / JENNA CULTURE, BLOOD Routine 08/26/2023 3:16 PM CDT BACTERIA / JENNA CULTURE, BLOOD Routine 08/26/2023 3:06 PM CDT [...] WITH REFLEX STAT 08/26/2023 7:28 AM CDT RENAL FUNCTION PANEL, S Routine 08/26/2023 4:38 AM CDT IRON AND TOT IRON-BINDING CAPACITY, S/P Routine 08/26/2023 4:38 AM CDT CBC WITH DIFFERENTIAL, B Routine 08/26/2023 4:38 AM CDT MAGNESIUM, S Routine 08/26/2023 4:38 AM CDT LACTATE, B/P Routine 08/26/2023 4:38 AM CDT FERRITIN, S Routine 08/26/2023 4:38 AM CDT LACTATE, B/P Timed 08/26/2023 12:02 AM CDT PATIENT STATUS STAT 08/25/2023 9:12 PM CDT LACTATE, B/P STAT 08/25/2023 9:12 PM CDT VENOUS BLOOD GAS W/COOX, B STAT 08/25/2023 9:12 PM CDT GLUCOSE POCT, B Routine 08/25/2023 9:10 PM CDT LACTATE, B/P Timed 08/25/2023 5:18 PM CDT CRITICAL CARE Routine 08/25/2023 5:05 PM CDT LACTATE, POCT, B STAT 08/25/2023 4:08 PM CDT HC URINALYSIS AUTO WO MICRO Routine 08/25/2023 3:35 PM CDT HC OSMOLALITY ASSAY URINE STAT 08/25/2023 3:18 PM CDT DIPSTICK, U STAT 08/25/2023 3:18 PM CDT PH, RANDOM, U STAT 08/25/2023 3:18 PM CDT MICROSCOPIC MANUAL STAT 08/25/2023 3: 18 PM CDT BACTERIAL CULTURE, AEROBIC + SUSC, URINE STAT 08/25/2023 3:18 PM CDT URINALYSIS WITH MICROSCOPIC STAT 08/25/2023 3:18 PM CDT DX CHEST AP OR PA AND LATERAL 2 VIEWS RAD - Semiurgent (Fast; most ED patients; some inpatients) 08/25/2023 2:25 PM CDT BACTERIA / JENNA CULTURE, BLOOD STAT 08/25/2023 2:12 PM CDT HEPATIC FUNCTION PANEL, S STAT 08/25/2023 2:11 PM CDT PROTHROMBIN TIME (PT), P STAT 08/25/2023 2:11 PM CDT CBC WITH DIFFERENTIAL, B STAT 08/25/2023 2:11 PM CDT BASIC METABOLIC PANEL, S/P STAT 08/25/2023 2:11 PM CDT LACTATE FOR SEPSIS WITH REFLEX, POCT STAT 08/25/2023 2:10 PM CDT VBG & LYTES CG8+, POCT, B STAT 08/25/2023 2:10 PM CDT GLUCOSE POCT, B STAT 08/25/2023 1:58 PM CDT BACTERIA / JENNA CULTURE, BLOOD STAT 08/25/2023 1:58 PM CDT ECG Semiurgent (Fast, most ED patients, some inpatients) 08/25/2023 1:42 PM CDT CYSTATIN C WITH EGFR Routine 08/25/2023 1:40 PM CDT VBG & LYTES CG8+, POCT, B STAT 08/25/2023 11:53 AM CDT LACTATE, POCT, B STAT 08/25/2023 11:5 3 AM CDT UPPER GI ENDOSCOPY STAT 08/25/2023 7: 26 AM CDT EGD (ESOPHAGEALGASTROD UODENOSCOPY) STAT 08/25/2023 7:26 AM CDT documented in this encounter Results * (ABNORMAL) Glucose, POCT (08/28/2023 12:23 PM CDT) Glucose, POCT, B 164(H) 70 - 140 mg/dL 08/28/2023 12:25 PM CDT PCLX Blood 08/28/2023 12:2 3 PM CDT 08/28/2023 12:26 PM CDT Unknown Provider LAB POCT ORDERABLES- MANUAL POC [facility] [address] [place] [address], [facility] PCLX [facility] POC [address] [place] [address] * Glucose, POCT (08/28/2023 8:54 AM CDT) Glucose, POCT, B 106 70 - 140 mg/dL 08/28/2023 8:56 AM CDT PCLX Last Intake 3-4 hours 08/28/2023 8:56 AM CDT PCLX Blood 08/28/2023 8:54 AM CDT 08/28/2023 8:56 AM CDT Unknown Provider LAB POCT ORDERABLES- MANUAL POC [facility] [address] [place] [address], [facility] PCLX [facility] POC [address] [place] [address] * (ABNORMAL) CBC without Differential (08/28/2023 5:05 AM CDT) Hemoglobin 10.1(L) 13.2 - 16.6 g/dL 08/28/2023 6:22 AM CDT DTL Hematocrit 28.7(L) 38.3 - 48.6 % 08/28/2023 6:22 AM CDT DTL Erythrocytes 3.08(L) 4.35 - 5.65 x10(12)/L 08/28/2023 6:22 AM CDT DTL MCV 93.2 78.2 - 97.9 fL 08/28/2023 6:22 AM CDT DTL RBC Distrib Width 17.7(H) 11.8 - 14.5 % 08/28/2023 6:22 AM CDT DTL Platelet Count 52(L) 135 - 317 x10(9)/L 08/28/2023 6:22 AM CDT DTL Leukocytes 3.4 3.4 - 9.6 x10(9)/L 08/28/2023 6:22 AM CDT DTL Blood (Blood, Venous) 08/28/2023 5:05 AM CDT 08/28/2023 6:08 AM CDT Clemente Baer M.D. LAB BLOOD ADD-ON [facility] [address] [place] [address], [facility] DTL [facility] [address] [place] [address] * (ABNORMAL) Basic Metabolic Panel (08/28/2023 5:05 AM CDT) Pathologist [facility] Potassium, S 4.0 3.6 - 5.2 mmol/L 08/28/2023 6:43 AM CDT DTL Sodium, S 136 135 - 145 mmol/L 08/28/2023 6:43 AM CDT DTL Chloride, S 107 98 - 107 mmol/L 08/28/2023 6:43 AM CDT DTL Bicarbonate, S 21(L) 22 - 29 mmol/L 08/28/2023 6:43 AM CDT DTL Anion Gap 8 7 - 15 08/28/2023 6:43 AM CDT DTL BUN (Blood Urea Nitrogen), S 11 8 - 24 mg/dL 08/28/2023 6:43 AM CDT DTL Creatinine 0.84 0.74 - 1.35 mg/dL 08/28/2023 6:43 AM CDT DTL Estimated GFR (eGFR) >90 >=60 mL/min/BSA 08/28/2023 6:43 AM CDT DTL Comment: Estimated GFR calculated using the 2020 CKD_EPI creatinine equation. Calcium, Total, S 8.1(L) 8.8 - 10.2 mg/dL 08/28/2023 6:43 AM CDT DTL Glucose, S 114 70 - 140 mg/dL 08/28/2023 6:43 AM CDT DTL Blood (Blood, Venous) 08/28/2023 5:05 AM CDT 08/28/2023 6:23 AM CDT Clemente Baer M.D. LAB BLOOD ADD-ON [facility] [address] [place] [address], [facility] [address] [place] [address] * (ABNORMAL) Glucose, POCT (08/27/2023 8:47 PM CDT) Glucose, POCT, B 164(H) 70 - 140 mg/dL 08/27/2023 9:05 PM CDT PCLX Site Capillary 08/27/2023 9:05 PM CDT PCLX Last Intake 2-3 hours 08/27/2023 9:05 PM CDT PCLX Blood 08/27/2023 8:47 PM CDT 08/27/2023 9:05 PM CDT Unknown Provider LAB POCT ORDERABLES- MANUAL Performing Organization Address City/[facility]/ZIP Co de Phone Number POC [facility] [address] [place] [address], [facility] PCLX [facility] POC [address] [place] [address] * (ABNORMAL) Glucose, POCT (08/27/2023 5:09 PM CDT) Glucose, POCT, B 181(H) 70 - 140 mg/dL 08/27/2023 5:26 PM CDT PCLX Site Capillary 08/27/2023 5:26 PM CDT PCLX Last Intake 2-3 hours 08/27/2023 5:26 PM CDT PCLX Blood 08/27/2023 5:09 PM CDT 08/27/2023 5:26 PM CDT Unknown Provider LAB POCT ORDERABLES- MANUAL POC [facility] [address] [place] [address], [facility] PCLX [facility] POC [address] [place] [address] * CT Abdomen Pelvis with IV Contrast (08/27/2023 12:39 PM CDT) Anatomical Region Laterality Modality Abdomen, Pelvis, Abdominal R ST LOS, Abdominal ARZ LOS, Abdominal FLA LOS N/A Computed Tomograp hy, Computed Tomography 08/27/2023 12:3 7 PM CDT Impressions 08/27/2023 12:45 PM CDT 1. Cirrhotic appearing liver with findings of portal hypertension. 2. Linear filling defect in the main portal vein is most likely artifactual from unopacified blood coming from the unopacified SMV due to timing, but this is indeterminate for mesentero-portal thrombus. 3. Moderate ascites and mesenteric edema. Diffuse small bowel edema and gastric edema. This is most likely all related to the chronic liver disease. 4. No focal collection or abscess. Narrative 08/27/2023 12:45 PM CDT EXAM: ??CT ABDOMEN PELVIS WITH IV CONTRAST COMPARISON: ??Correlation with PET CT 12/09/2022 and outside abdomen MRI 09/29/2022. FINDINGS: ??Nodular, cirrhotic appearing liver. The intrahepatic portal venous systems are patent. Linear filling defect in the main portal vein is likely artifactual from timing and unopacified blood from the SMV, but is indeterminate. Findings of portal hypertension. Marked splenomegaly. Moderate abdominopelvic ascites. Recannulized paraumbilical vein. Small gastric and paraesophageal varices. Gallbladder, pancreas, adrenals, and kidneys are negative. Bowel is normal caliber, but there is diffuse small bowel edema and diffuse gastric wall edema. Bilateral hip arthroplasties. Degenerative change in the lumbar spine anterior wedging of T8. Small fat-containing umbilical hernia. Left inguinal hernia containing ascites. Mixed groundglass opacity and reticular/interlobular septal thickening in the lung bases, left more than right. Small foci of consolidation in the left lung base. Tiny left effusion. Procedure Note Mohan Raymond M.D. - 08/27/2023 EXAM: CT ABDOMEN PELVIS WITH IV CONTRAST COMPARISON: Correlation with PET CT 12/09/2022 and outside abdomen MRI09/29/2022. FINDINGS: Nodular, cirrhotic appearing liver. The intrahepatic portalvenous systems are patent. Linear filling defect in the main portal veinis likely artifactual from timing and unopacified blood from the SMV, butis indeterminate. Findings of portal hypertension. Marked splenomegaly. Moderateabdominopelvic ascites. Recannulized paraumbilical vein. Small gastric andparaesophageal varices. Gallbladder, pancreas, adrenals, and kidneys are negative. Bowel is normal caliber, but there is diffuse small bowel edema anddiffuse gastric wall edema. Bilateral hip arthroplasties. Degenerative change in the lumbar spineanterior wedging of T8. Small fat-containing umbilical hernia. Leftinguinal hernia containing ascites. Mixed groundglass opacity and reticular/interlobular septal thickening inthe lung bases, left more than right. Small foci of consolidation in theleft lung base. Tiny left effusion. IMPRESSION: 1. Cirrhotic appearing liver with findings of portal hypertension. 2. Linear filling defect in the main portal vein is most likelyartifactual from unopacified blood coming from the unopacified SMV due totiming, but this is indeterminate for mesentero-portal thrombus. 3. Moderate ascites and mesenteric edema. Diffuse small bowel edema andgastric edema. This is most likely all related to the chronic liverdisease. 4. No focal collection or abscess. Clemente Baer M.D. IMG CT PROCEDURES * (ABNORMAL) Glucose, POCT (08/27/2023 11:23 AM CDT) Glucose, POCT, B 151(H) 70 - 140 mg/dL 08/27/2023 11:31 AM CDT PCLX Site Capillary 08/27/2023 11:31 AM CDT PCLX Last Intake 3-4 hours 08/27/2023 11:31 AM CDT PCLX Blood 08/27/2023 11:2 3 AM CDT 08/27/2023 11:32 AM CDT Unknown Provider LAB POCT ORDERABLES- MANUAL POC [facility] [address] [place] [address], [facility] PCLX [facility] POC [address] [place] [address] * (ABNORMAL) Glucose, POCT (08/27/2023 7:54 AM CDT) Glucose, POCT, B 156(H) 70 - 140 mg/dL 08/27/2023 7:56 AM CDT PCLX Blood 08/27/2023 7:54 AM CDT 08/27/2023 7:56 AM CDT Unknown Provider LAB POCT ORDERABLES- MANUAL POC [facility] [address] [place] [address], [facility] PCLX [facility] POC [address] [place] [address] * Magnesium (08/27/2023 6:07 AM CDT) Magnesium, S 1.9 1.7 - 2.3 mg/dL 08/27/2023 6:51 AM CDT DTL Blood (Blood, Venous) 08/27/2023 6:07 AM CDT 08/27/2023 6:40 AM CDT Barbara Marin M.D. LAB BLOOD ADD-ON [facility] [address] [place] [address], [facility] [address] [place] [address] * (ABNORMAL) Basic Metabolic Panel (08/27/2023 6:07 AM CDT) Potassium, P 3.6 3.6 - 5.2 mmol/L 08/27/2023 6:30 AM CDT STMA Sodium, P 137 135 - 145 mmol/L 08/27/2023 6:30 AM CDT STMA Chloride, P 107 98 - 107 mmol/L 08/27/2023 6:30 AM CDT STMA Bicarbonate, P 22 22 - 29 mmol/L 08/27/2023 6:30 AM CDT STMA Anion Gap, P 8 7 - 15 08/27/2023 6:30 AM CDT STMA BUN (Blood Urea Nitrogen), P 14 8 - 24 mg/dL 08/27/2023 6:30 AM CDT STMA Creatinine 0.88 0.74 - 1.35 mg/dL 08/27/2023 6:30 AM CDT STMA Estimated GFR (eGFR) >90 >=60 mL/min/BSA 08/27/2023 6:30 AM CDT STMA Comment: Estimated GFR calculated using the 2020 CKD_EPI creatinine equation. Calcium, Total, P 8.1(L) 8.8 - 10.2 mg/dL 08/27/2023 6:30 AM CDT STMA Glucose, P 133 70 - 140 mg/dL 08/27/2023 6:30 AM CDT STMA Blood (Blood, Venous) 08/27/2023 6:07 AM CDT 08/27/2023 6:12 AM CDT Barbara Marin M.D. LAB BLOOD ADD-ON [facility] [address] [place] [address], [facility] STMA [facility] [address] [place] [address] * (ABNORMAL) CBC with Differential, Blood (08/27/2023 6:07 AM CDT) Hemoglobin 9.7(L) 13.2 - 16.6 g/dL 08/27/2023 6:15 AM CDT STMA Hematocrit 28.0(L) 38.3 - 48.6 % 08/27/2023 6:15 AM CDT STMA Erythrocytes 3.07(L) 4.35 - 5.65 x10(12)/L 08/27/2023 6:15 AM CDT STMA MCV 91.2 78.2 - 97.9 fL 08/27/2023 6:15 AM CDT STMA RBC Distrib Width 17.7(H) 11.8 - 14.5 % 08/27/2023 6:15 AM CDT STMA Platelet Count 44(L) 135 - 317 x10(9)/L 08/27/2023 6:15 AM CDT STMA Leukocytes 4.0 3.4 - 9.6 x10(9)/L 08/27/2023 6:15 AM CDT STMA Neutrophils 2.74 1.56 - 6.45 x10(9)/L 08/27/2023 6:15 AM CDT DHPM Lymphocytes 0.48(L) 0.95 - 3.07 x10(9)/L 08/27/2023 6:15 AM CDT STMA Monocytes 0.36 0.26 - 0.81 x10(9)/L 08/27/2023 6:15 AM CDT STMA Eosinophils 0.33 0.03 - 0.48 x10(9)/L 08/27/2023 6:15 AM CDT STMA Basophils 0.04 0.01 - 0.08 x10(9)/L 08/27/2023 6:15 AM CDT STMA Blood (Blood, Venous) 08/27/2023 6:07 AM CDT 08/27/2023 6:12 AM CDT Barbara Marin M.D. LAB BLOOD ADD-ON Performing Organization Address City/[facility]/ZIP Co de Phone Number [facility] [address] [place] [address], [facility] STMA [facility] [address] [place] [address] [facility] [address] [place] [address] * (ABNORMAL) Glucose, POCT (08/26/2023 5:58 PM CDT) Glucose, POCT, B 233(H) 70 - 140 mg/dL 08/26/2023 5:59 PM CDT PCLX Blood 08/26/2023 5:58 PM CDT 08/26/2023 5:59 PM CDT Unknown Provider LAB POCT ORDERABLES- MANUAL Performing Organization Address [facility] Co de Phone Number [facility] [address] [place] [address], [facility] PCLX [facility] POC [address] [place] [address] * (ABNORMAL) Glucose, POCT (08/26/2023 3:41 PM CDT) Glucose, POCT, B 194(H) 70 - 140 mg/dL 08/26/2023 3:42 PM CDT PCLX Blood 08/26/2023 3:41 PM CDT 08/26/2023 3:43 PM CDT Unknown Provider LAB POCT ORDERABLES- MANUAL Performing Organization Address City/[facility]/ZIP Co de Phone Number [facility] [address] [place] [address], [facility] PCLX [facility] POC [address] [place] [address] * Bacteria / Jenna Culture, Blood #2 (08/26/2023 3:16 PM CDT) Bacteria/Taylor da Culture, Blood No growth after 5 days of incubation. 08/31/2023 5:02 PM CDT DTL Blood (Blood, Peripheral Draw) 08/26/2023 3:16 PM CDT 08/26/2023 4:13 PM CDT Comment:Specimen Source Site : Blood Kenneth Mcnally M.D. LAB MICROBIOLOGY - G ENERAL ORDERABLES Performing Organization Address City/[facility] Co de Phone Number [facility] [address] [place] [address], [facility] [address] [place] [address] * Bacteria / Jenna Culture, Blood #1 (08/26/2023 3:06 PM CDT) [facility] Bacteria/Taylor da Culture, Blood No growth after 5 days of incubation. 08/31/2023 5:02 PM CDT DTL Blood (Blood, Peripheral Draw) 08/26/2023 3:06 PM CDT 08/26/2023 4:14 PM CDT Comment:Specimen Source Site : Blood Kenneth Mcnally M.D. LAB MICROBIOLOGY - G ENERAL ORDERABLES Performing Organization Address [facility] Co de Phone Number [facility] [address] [place] [address], [facility] [address] [place] [address] * CT Chest with IV Contrast (08/26/2023 [...] the upper abdomen. Mild height loss of [id number] body is most likely chronic. No aggressive [...] Nelly Marinelli M.D. IMG CT PROCEDURES * (ABNORMAL) Glucose, POCT (08/26/2023 12:38 PM CDT) Glucose, POCT, B 171(H) 70 - 140 mg/dL 08/26/2023 12:39 PM CDT PCLX Blood 08/26/2023 12:3 8 PM CDT 08/26/2023 12:40 PM CDT Unknown Provider LAB POCT ORDERABLES- MANUAL Performing Organization Address City/State/[facility] Co de Phone Number POC [facility] [address] [place] [address], [facility] PCLX [facility] POC [address] [place] [address] * ECG 12 Lead (08/26/2023 10:39 AM CDT) Ventricular Rate ECG/Min 57 BPM MUSE TN Interval 126 ms MUSE QRSD Interval 102 ms MUSE QT Interval 472 ms MUSE QTC Interval 459 ms MUSE P [place] 19 degrees MUSE R [place] -4 degrees MUSE T Wave [place] 17 degrees MUSE 08/26/2023 10:3 9 AM [...] Marinelli M.D. ECG ORDERABLES MUSE NA * Lactate (08/26/2023 10:35 AM CDT) Lactate, P 1.9 0.5 - 2.2 mmol/L 08/26/2023 11:14 AM CDT STMA Blood 08/26/2023 10:3 5 AM CDT 08/26/2023 11:00 AM CDT Kirk Rm M.D. LAB BLOOD NON ADD-ON Performing Organization Address City/[facility]/ZIP Co de Phone Number [facility] [address] [place] [address], [facility] STMA [facility] [address] [place] [address] * Invasive Line (08/26/2023 10:31 AM CDT) [...] Gypsy Lu M.D. PROCEDURE/MINOR SURGICAL ORDERABLES * Glucose, POCT (08/26/2023 9:09 AM CDT) Glucose, POCT, B 105 70 - 140 mg/dL 08/26/2023 9:11 AM CDT PCLX Blood 08/26/2023 9:09 AM CDT 08/26/2023 9:11 AM CDT Unknown Provider LAB POCT ORDERABLES- MANUAL Performing Organization Address City/[facility]/ZIP Co de Phone Number POC [facility] [address] [place] [address], [facility] PCLX [facility] POC [address] [place] [address] * Lactate for Sepsis with Reflex (08/26/2023 7:28 AM CDT) Lactate, P 2.2 0.5 - 2.2 mmol/L 08/26/2023 8:09 AM CDT STMA Blood (Blood, Venous) 08/26/2023 7:28 AM CDT 08/26/2023 7:42 AM CDT Kirk Rm M.D. LAB BLOOD NON ADD-ON [facility] [address] STMA [facility] [address] [place] [address] * Lactate (08/26/2023 4:38 AM CDT) Lactate, P 1.9 0.5 - 2.2 mmol/L 08/26/2023 5:30 AM CDT DTL Blood (Blood, Venous) 08/26/2023 4:38 AM CDT 08/26/2023 5:17 AM CDT Kenneth Mcnally M.D. LAB BLOOD NON ADD-ON Performing Organization Address City/[facility]/ZIP Co de Phone Number [facility] [address] [place], [place] [id number] [place] [address] [facility] [address] [place] [address] * (ABNORMAL) Iron and Total Iron-Binding Capacity [...] CDT Kenneth Mcnally M.D. LAB BLOOD ADD-ON [facility] [address] [place] [address] * Ferritin (08/26/2023 4:38 AM CDT) Ferritin, S 71 31 - 409 mcg/L 08/26/2023 5:50 AM CDT DTL Blood (Blood, Venous) 08/26/2023 4:38 AM CDT 08/26/2023 5:17 AM CDT Kenneth Mcnally M.D. LAB BLOOD ADD-ON Performing Organization Address [facility]/ZIP Co de Phone Number [facility] [address] [place] [address] * Magnesium (08/26/2023 4:38 AM CDT) Magnesium, S 1.8 1.7 - 2.3 mg/dL 08/26/2023 5:50 AM CDT DTL Blood (Blood, Venous) 08/26/2023 4:38 AM CDT 08/26/2023 5:17 AM CDT Kenneth Mcnally M.D. LAB BLOOD ADD-ON Performing Organization Address [facility] de Phone Number [facility] [address] [place] [address], [place] [address] * (ABNORMAL) Renal Function Panel (08/26/2023 4:38 [...] CDT Kenneth Mcnally M.D. LAB BLOOD ADD-ON [place] [address] [place] [address], [facility] [address] * (ABNORMAL) CBC with Differential, Blood (08/26/2023 4:38 AM CDT) Hemoglobin 9.3(L) 13.2 - 16.6 g/dL 08/26/2023 5:14 AM CDT DTL Hematocrit 26.6(L) 38.3 - 48.6 % 08/26/2023 5:14 AM CDT DTL Erythrocytes 2.77(L) 4.35 - 5.65 x10(12)/L 08/26/2023 5:14 AM CDT DTL MCV 96.0 78.2 - 97.9 fL 08/26/2023 5:14 AM CDT DTL RBC Distrib Width 17.7(H) 11.8 - 14.5 % 08/26/2023 5:14 AM CDT DTL Platelet Count 49(L) 135 - 317 x10(9)/L 08/26/2023 5:14 AM CDT DTL Leukocytes 6.4 3.4 - 9.6 x10(9)/L 08/26/2023 5:14 AM CDT DTL Neutrophils 4.96 1.56 - 6.45 x10(9)/L 08/26/2023 5:14 AM CDT DHPM Lymphocytes 0.69(L) 0.95 - 3.07 x10(9)/L 08/26/2023 5:14 AM CDT DTL Monocytes 0.52 0.26 - 0.81 x10(9)/L 08/26/2023 5:14 AM CDT DTL Eosinophils 0.20 0.03 - 0.48 x10(9)/L 08/26/2023 5:14 AM CDT DTL Basophils <0.03 0.01 - 0.08 x10(9)/L 08/26/2023 5:14 AM CDT DTL Blood (Blood, Venous) 08/26/2023 4:38 AM CDT 08/26/2023 5:07 AM CDT Kenneth Mcnally M.D. [place] [address], [facility] DTL [facility] [address] [place] [address] * (ABNORMAL) Lactate (08/26/2023 12:02 AM CDT) Lactate, P 2.8(H) 0.5 - 2.2 mmol/L 08/26/2023 12:58 AM CDT DTL Blood (Blood, Venous) 08/26/2023 12:02 AM CDT 08/26/2023 12:39 AM CDT Kenneth Mcnally M.D. LAB BLOOD NON ADD-ON [facility] [address] [place] [address], [facility] DTL [facility] [address] [place] [address] * Patient Status (08/25/2023 9:12 PM CDT) [facility] FIO2 room air 0.21=AIR 08/25/2023 9:15 PM CDT STMA Spont. breaths/min 21 08/25/2023 9:15 PM CDT STMA Blood 08/25/2023 9:12 PM CDT 08/25/2023 9:15 PM CDT Kenneth Mcnally M.D. LAB BLOOD NON ADD-ON [facility] [address] STMA [facility] [address] [place] [address] * (ABNORMAL) Blood Gas with Coox, Venous (08/25/2023 9:12 PM CDT) [facility] pO2, Venous, B 18 Not applicable mm [...] LAB BLOOD NON ADD-ON Performing Organization Address City/[facility] Co de Phone Number [facility] [address] [place], [place] [phone] [place] [address] [address] [place] [address] * (ABNORMAL) Lactate (08/25/2023 9:12 PM CDT) Lactate, P 3.9(H) 0.5 - 2.2 mmol/L 08/25/2023 9:29 PM CDT STMA Blood (Blood, Venous) 08/25/2023 9:12 PM CDT 08/25/2023 9:15 PM CDT Kenneth Mcnally M.D. LAB BLOOD NON ADD-ON Performing Organization Address City/[facility] Co de Phone Number [facility] [address] [place], [place] [address] [address] [place] [address] * (ABNORMAL) Glucose, POCT (08/25/2023 9:10 PM CDT) Glucose, POCT, B 150(H) 70 - 140 mg/dL 08/25/2023 9:13 PM CDT PCLX Site Venstick 08/25/2023 9:13 PM CDT PCLX Last Intake <1 hour 08/25/2023 9:13 PM CDT PCLX Blood 08/25/2023 9:10 PM CDT 08/25/2023 9:13 PM CDT Unknown Provider LAB POCT ORDERABLES- MANUAL Performing Organization Address [facility] Co de Phone Number POC [facility] [address] [place] [address], [facility] PCLX [facility] [address] [place] [address] * (ABNORMAL) Lactate (08/25/2023 5:18 PM CDT) Lactate, P 3.5(H) 0.5 - 2.2 mmol/L 08/25/2023 5:57 PM CDT STMA Blood 08/25/2023 5:18 PM CDT 08/25/2023 5:43 PM CDT Vianney Escobar APRN C.N.P., D.N.P., M.S.N. LAB BLOOD NON ADD-ON Performing Organization Address [facility] Co de Phone Number [facility] [address] [place] [address], [facility] STMA [facility] [address] [place] [address] * Critical Care (08/25/2023 5:05 PM CDT) [...] (ABNORMAL) Lactate, POCT (08/25/2023 4:08 PM CDT) Pathologist [facility] Lactate, POCT 4.49(H) 0.50 - 2.20 mmol/L 08/25/2023 4:17 PM CDT PCLX Blood (Blood, Venous) 08/25/2023 4:08 PM CDT 08/25/2023 4:08 PM CDT Napoleon Newby APRNNMarcusP., D.N.P., M.S.N. LAB POCT ORDERABLES - DEVICE Performing Organization Address City/State/[facility] Co de Phone Number POC [facility] [address] [place] [address], [facility] PCLX [facility] POC [address] [place] [address] * (ABNORMAL) Dipstick, POCT, Urine (08/25/2023 3:35 PM CDT) Pathologist [facility] Glucose, POCT, U 500(A) Negative mg/dL 08/25/2023 3:36 PM CDT PCED Ketone, POCT, U Negative Negative mg/dL 08/25/2023 3:36 PM CDT PCED Specific [place], POCT, U 1.020 1.005 - 1.030 08/25/2023 [...] LAB POCT ORDERABLES - DEVICE POC [facility] [address] [place] [address], [facility] PCED [facility] P[facility] [address] [place] [address] * (ABNORMAL) Dipstick, Urine (08/25/2023 3:18 PM [...] M.D. LAB URINE ORDERABLES Performing Organization Address City/[facility]/ZIP Co de Phone Number [facility] [address] [place] [address], [facility] [address] [place] [address] * Osmolality, Urine (08/25/2023 3:18 PM CDT) Osmolality, U 597 150 - 1150 mOsm/kg 08/25/2023 3:58 PM CDT DTL Urine 08/25/2023 3:18 PM CDT 08/25/2023 3:35 PM CDT Zachary Romano M.D. LAB URINE ORDERABLES [facility] [address] [place] [address], [facility] [address] [place] [address] * pH, Random, Urine (08/25/2023 3:18 PM CDT) pH, Random, U 5.7 4.5 - 8.0 08/25/2023 3:58 PM CDT DTL Urine 08/25/2023 3:18 PM CDT 08/25/2023 3:35 PM CDT Zachary Romano M.D. LAB URINE ORDERABLES Performing Organization Address City/[facility]/ZIP Co de Phone Number [facility] [address] [place] [address], [facility] [address] [place] [address] * (ABNORMAL) Microscopic Manual (08/25/2023 3:18 PM [...] CDT Zachary Romano M.D. LAB URINE ORDERABLES [facility] [address] [place] [address], [facility] [address] [place] [address] * Bacterial Culture, Aerobic + Susceptibility, Urine (08/25/2023 3:18 PM CDT) Urine Culture No growth after 1 day of incubation. 08/26/2023 12:32 PM CDT DTL Urine (Urine, Straight Catheter) 08/25/2023 3:18 PM CDT 08/25/2023 5:52 PM CDT Comment:Specimen Source Site : Urine Zachary Romano M.D. LAB MICROBIOLOGY - G ENERAL ORDERABLES [facility] [address] [place] [address], [facility] [address] [place] [address] * Urinalysis, with Microscopic: Urine, Straight Catheter [...] CDT Zachary Romano M.D. LAB URINE ORDERABLES [facility] [address] [place] [address], [facility] DTL [facility] [address] [place] [address] * DX Chest AP or PA and [...] vascularity. Osseousdemineralization. Suture anchor right humeral head. Napoleon Newby APRNNMarcusP., Misha.N.P., M.S.N. IMG DIAGNOSTIC IMAGING PROCEDURES * Bacteria / Jenna Culture, Blood # 2 (08/25/2023 2:12 PM CDT) Bacteria/Taylor da Culture, Blood No growth after 5 days of incubation. 08/30/2023 3:02 PM CDT DTL Blood (Blood, Peripheral Draw) 08/25/2023 2:12 PM CDT 08/25/2023 2:26 PM CDT Comment:Specimen Source Site : Blood Mendy Newby APRN.N.P., D.N.P., M.S.N. LAB MICROBIOLOGY - GENERAL ORDERABLES [facility] [address] [place] [address], [facility] [address] [place] [address] * (ABNORMAL) Hepatic Function Panel (08/25/2023 2:11 PM CDT) Bilirubin, Total, S 1.3(H) 0.0 - 1.2 mg/dL 08/25/2023 2:56 PM CDT DTL Bilirubin, Direct, S 0.6(H) 0.0 - 0.3 mg/dL 08/25/2023 2:56 PM CDT DTL Aspartate Aminotransferase (AST), S 46 8 - 48 U/L 08/25/2023 2:56 PM CDT DTL Alanine Aminotransferase (ALT), S 38 7 - 55 U/L 08/25/2023 2:56 PM CDT DTL Alkaline Phosphatase, S 270(H) 40 - 129 U/L 08/25/2023 2:56 PM CDT DTL Albumin, S 3.1(L) 3.5 - 5.0 g/dL 08/25/2023 2:56 PM CDT DTL Protein, Total, S 7.7 6.3 - 7.9 g/dL 08/25/2023 2:56 PM CDT DTL Blood (Blood, Venous) 08/25/2023 2:11 PM CDT 08/25/2023 2:39 PM CDT Mendy Newby APRN.N.P., D.N.P., M.S.N. LAB BLOOD ADD-ON [facility] [address] [place] [address], [facility] [address] * (ABNORMAL) Prothrombin Time (PT) (08/25/2023 2:11 PM CDT) Prothrombin Time, P 14.9(H) 9.4 - 12.5 sec 08/25/2023 2:26 PM CDT STMA INR 1.4 0.9 - 1.1 08/25/2023 2:26 PM CDT STMA Comment: ----ADDITIONAL INFORMATION---- Standard intensity warfarin therapeutic range: 2.0 to 3.0 ?? High intensity warfarin therapeutic range: 2.5 to 3.5 Blood (Blood, Venous) 08/25/2023 2:11 PM CDT 08/25/2023 2:18 PM CDT Napoleon Newby APRNNMarcusP., D.N.P., M.S.N. LAB BLOOD ADD-ON [facility] [address] [place] [address], [facility] STMA [facility] [address] [place] [address] * (ABNORMAL) Basic Metabolic Panel (08/25/2023 2:11 PM CDT) Pathologist [facility] Potassium, P 3.8 3.6 - 5.2 mmol/L 08/25/2023 2:43 PM CDT [facility] Sodium, P 139 135 - 145 mmol/L 08/25/2023 2:43 PM CDT [facility] Chloride, P 103 98 - 107 mmol/L 08/25/2023 2:43 PM CDT [facility] Bicarbonate, P 18(L) 22 - 29 mmol/L 08/25/2023 2:43 PM CDT [facility] Anion Gap, P 18(H) 7 - 15 08/25/2023 2:43 PM CDT [facility] BUN (Blood Urea Nitrogen), P 21 8 - 24 mg/dL 08/25/2023 2:43 PM CDT [facility] Creatinine 0.90 0.74 - 1.35 mg/dL 08/25/2023 2:43 PM CDT [facility] Estimated GFR (eGFR) 90 >=60 mL/min/BSA 08/25/2023 2:43 PM CDT [facility] Comment: Estimated GFR calculated using the 2020 CKD_EPI creatinine equation. Calcium, Total, P 9.2 8.8 - 10.2 mg/dL 08/25/2023 2:43 PM CDT [facility] Glucose, P 137 70 - 140 mg/dL 08/25/2023 2:43 PM CDT [facility] Blood (Blood, Venous) 08/25/2023 2:11 PM CDT 08/25/2023 2:18 PM CDT Vianney Escobar APRN, C.N.P., D.N.P., M.S.N. LAB BLOOD ADD-ON [facility] [address] [place] [address], [facility] [address] [place] [address] * (ABNORMAL) CBC with Differential, Blood (08/25/2023 2:11 PM CDT) Hemoglobin 11.9(L) 13.2 - 16.6 g/dL 08/25/2023 2:21 PM CDT [facility] Hematocrit 35.2(L) 38.3 - 48.6 % 08/25/2023 2:21 PM CDT [facility] Erythrocytes 3.70(L) 4.35 - 5.65 x10(12)/L 08/25/2023 2:21 PM CDT [facility] MCV 95.1 78.2 - 97.9 fL 08/25/2023 2:21 PM CDT [facility] RBC Distrib Width 17.3(H) 11.8 - 14.5 % 08/25/2023 2:21 PM CDT [facility] Platelet Count 64(L) 135 - 317 x10(9)/L 08/25/2023 2:21 PM CDT [facility] Leukocytes 4.0 3.4 - 9.6 x10(9)/L 08/25/2023 2:21 PM CDT [facility] Neutrophils 3.53 1.56 - 6.45 x10(9)/L 08/25/2023 2:21 PM CDT [facility] Lymphocytes 0.32(L) 0.95 - 3.07 x10(9)/L 08/25/2023 2:21 PM CDT [facility] Monocytes 0.08(L) 0.26 - 0.81 x10(9)/L 08/25/2023 2:21 PM CDT [facility] Eosinophils 0.10 0.03 - 0.48 x10(9)/L 08/25/2023 2:21 PM CDT [facility] Basophils <0.03 0.01 - 0.08 x10(9)/L 08/25/2023 2:21 PM CDT [facility] Blood (Blood, Venous) 08/25/2023 2:11 PM CDT 08/25/2023 2:18 PM CDT Vianney Escobar APRN C.N.P., D.N.P., M.S.N. LAB BLOOD ADD-ON [facility] [address] [place] [address], [facility] STMA [facility] [address] [place] [address] DHPM [facility] [address] [place] [address] * (ABNORMAL) Venous Blood Gas and Electrolytes CG8+, POCT (08/25/2023 2:10 PM CDT) Sample Site, POCT Venstick 08/25/2023 2:20 PM [...] 2:10 PM CDT 08/25/2023 1:58 PM CDT Napoleon Newby APRNNMarcusP., D.N.P., M.S.N. LAB POCT ORDERABLES - DEVICE POC [facility] [address] [place] [address], [facility] PCLX [facility] POC [address] [place] [address] PCSM [facility] POC [address] [place] [address] * (ABNORMAL) Lactate for Sepsis with Reflex, POCT (08/25/2023 2:10 PM CDT) [facility] Lactate, POCT 9.95(H) 0.50 - 2.20 mmol/L 08/25/2023 2:20 PM CDT PCLX Blood (Blood, Venous) 08/25/2023 2:10 PM CDT 08/25/2023 2:10 PM CDT Vianney Escobar APRN, C.N.P., EliuP., M.S.N. LAB POCT ORDERABLES - DEVICE Performing Organization Address [facility] Co de Phone Number POC [facility] [address] [place] [address], [facility] PCLX [facility] POC [address] [place] [address] * (ABNORMAL) Glucose, POCT (08/25/2023 1:58 PM CDT) Pathologist [facility] Glucose, POCT, B 147(H) 70 - 140 mg/dL 08/25/2023 2:15 PM CDT PCLX Site Venstick 08/25/2023 2:15 PM CDT PCLX Blood (Blood, Capillary) 08/25/2023 1:58 PM CDT 08/25/2023 1:58 PM CDT Vianney Escobar APRN, C.N.P., Misha.N.P., M.S.N. LAB POCT ORDERABLES-MANUAL Performing Organization Address [facility] de Phone Number [facility] [address] [place] [address], [facility] PCLX [facility] POC [address] [place] [address] * ECG 12 Lead (08/25/2023 1:42 PM CDT) Pathologist [facility] Ventricular Rate ECG/Min 104 BPM MUSE QRSD Interval 86 ms MUSE QT Interval 340 ms MUSE QTC Interval 447 ms MUSE R [place] -14 degrees MUSE T Wave [place] -29 degrees MUSE 08/25/2023 1:42 PM CDT 08/25/2023 1:45 PM CDT Impressions MUSE - 08/25/2023 1:45 PM CDT Poor data quality Probable Atrial fibrillation Low voltage QRS in limb leads Nonspecific ST and T wave abnormality When compared with ECG of 28-Mar-1999 09:55, Significant changes have occurred Reviewed by KLEBER Cervantes Narrative Procedure Note Vick Rosales M.D., Ph.D. - 08/25/2023 IMPRESSION: Poor data quality Probable Atrial fibrillation Low voltage QRS in limb leads Nonspecific ST and T wave abnormality When compared with ECG of 28-Mar-1999 09:55, Significant changes have occurred Reviewed by KLEBER Cervantes Napoleon Newby APRNNMarcusPMarcus, D.N.P., M.S.N. ECG ORDERABLES MUSE NA * (ABNORMAL) Cystatin C with Estimated GFR (08/25/2023 1:40 PM CDT) [facility] eGFR by Cystatin C 50(L) >60 mL/min/BSA [...] CDT Gypsy Lu M.D. LAB BLOOD ADD-ON Performing Organization Address City/[facility]/ZIP Co de Phone Number [facility] [address] [place] [address], [facility] DTL [facility] [address] [place] [address] * (ABNORMAL) Lactate, POCT (08/25/2023 11:53 AM CDT) [facility] Lactate, POCT 2.30(H) 0.50 - 2.20 mmol/L 08/25/2023 12:03 PM CDT PCLX Blood (Blood, Venous) 08/25/2023 11:53 AM CDT 08/25/2023 11:53 AM CDT Vianney Escobar APRN, C.N.P., D.N.P., M.S.N. LAB POCT ORDERABLES - DEVICE POC [facility] [address] [place] [address], [facility] PCLX [facility] POC [address] [place] [address] * (ABNORMAL) Venous Blood Gas and Electrolytes CG8+, POCT (08/25/2023 11:53 AM CDT) [facility] Sample Site, POCT Venstick 08/25/2023 12:03 PM CDT PCLX Comment: ----ADDITIONAL INFORMATION---- Performed at the Point of Care pH, Venous, POCT, B 7.37 7.32 - 7.43 08/25/2023 12:03 PM CDT PCSM Comment: ----ADDITIONAL INFORMATION---- Performed at the Point of Care pCO2, Venous, POCT, B 41 41 - 51 mm Hg 08/25/2023 12:03 PM CDT PCSM Comment: ----ADDITIONAL INFORMATION---- Performed at the Point of Care pO2, Venous, POCT, B 32 Not Applicable mm Hg 08/25/2023 12:03 PM CDT PCSM Comment: ----ADDITIONAL INFORMATION---- Performed at the Point of Care Base Excess, Venous, POCT, B -2 Not Applicable mmol/L 08/25/2023 12:03 PM CDT PCSM Comment: ----ADDITIONAL INFORMATION---- Performed at the Point of Care HCO3, Venous, POCT, B 24 Not Applicable mmol/L 08/25/2023 12:03 PM CDT PCSM Comment: ----ADDITIONAL INFORMATION---- Performed at the Point of Care Sodium, POCT, B 141 135 - 145 mmol/L 08/25/2023 12:03 PM CDT PCLX Comment: ----ADDITIONAL INFORMATION---- Performed at the Point of Care Potassium, POCT, B 3.5(L) 3.6 - 5.2 mmol/L 08/25/2023 12:03 PM CDT PCLX Comment: ----ADDITIONAL INFORMATION---- Performed at the Point of Care Calcium, Ionized, POCT, B 4.70 4.65 - 5.30 mg/dL 08/25/2023 12:03 PM CDT PCLX Comment: ----ADDITIONAL INFORMATION---- Performed at the Point of Care Glucose, POCT, B 118 70 - 140 mg/dL 08/25/2023 12:03 PM CDT PCLX Comment: ----ADDITIONAL INFORMATION---- Performed at the Point of Care Hematocrit, POCT, B 29.0(L) 38.3 - 48.6 % 08/25/2023 12:03 PM CDT PCLX Comment: ----ADDITIONAL INFORMATION---- Performed at the Point of Care Blood (Blood, Venous) 08/25/2023 11:53 AM CDT 08/25/2023 11:52 AM CDT Vianney Escobar APRN, C.N.P., D.N.P., M.S.N. LAB POCT ORDERABLES - DEVICE POC [facility] [address] [place] [address], [facility] PCLX [facility] POC [address] [place] [address] PCSM [facility] POC [address] [place] [address] * Upper GI Endoscopy (08/25/2023 7:26 AM CDT) 08/25/2023 7:26 AM CDT [facility] 10:03 AM CDT Post-op Diagnoses: [...] facilitate repeated passages of the scope. Narrative [employer] - 08/25/2023 10:03 AM CDT Navjot [...] oxygen saturations were monitored continuously. The ? [id number] Upper Endoscope was introduced under direct vision [...] Roya Aldridge M.D. GI PROCEDURE ORDER [employer] NA documented in this encounter Visit Diagnoses Diagnosis Pneumonitis Due To Inhalation Of Food And Vomit (HCC)- Primary Pneumonia Food In Esophagus Causing Other Injury Initial Acidosis Lactic Pneumonia Sepsis (HCC) Unspecified Cirrhosis Of Liver (HCC) Hypertension Portal (HCC) Hepatitis Autoimmune (HCC) Stricture Esophagus Secondary Esophageal Varices Without Bleeding (HCC) Thrombocytopenia (HCC) Diabetes Mellitus Type 2 (HCC) documented in this encounter Admitting Diagnoses Diagnosis Pneumonia Sepsis (HCC) documented in this encounter Administered Medications Inactive Administered Medications - up to 3 most recent administrations Medication Order MAR Action Action Date Dose Rate Site cefTRIAXone in dextrose (iso osm) IVPB 2 g (ROCEPHIN) 2 g, intravenous, at 200 mL/hr, Administer over 15 Minutes, Every 24 hours, First dose on Thu08/26/23 at 1400, Drug Monitoring Program: Pharmacist to adjust medication dosing based on indication and drug clearance factors., Indications: Respiratory tract infection, community acquired New Bag 08/26/2023 2:28 PM CDT 2 g 200 mL/hr cefTRIAXone in dextrose (iso osm) IVPB 2 g (ROCEPHIN) 2 g, intravenous, at 200 mL/hr, Administer over 15 Minutes, Every 24 hours, First dose on Thu08/27/23 at 1400, Drug Monitoring Program: Pharmacist to adjust medication dosing based on indication and drug clearance factors., Indications: Intra-abdominal infection, community acquired, Respiratory tract infection, community acquired New Bag 08/28/2023 11:36 AM CDT 2 g 200 mL/hr New Bag 08/27/2023 1:59 PM CDT 2 g 200 mL/hr cefTRIAXone injection 2 g (ROCEPHIN) 2 g, intravenous, Once, On Thu08/25/23 at 1403, For 1 dose, [place] IV push over 3 minutes., Drug Monitoring Program: Pharmacist to adjust medication dosing based on indication and drug clearance factors., Indications: Respiratory tract infection, healthcare associated Given 08/25/2023 2:33 PM CDT 2 g cholecalciferol (vitamin D3) tablet 25 mcg 25 mcg, oral, Daily, First dose on Thu08/26/23 at 0900, cholecalciferol (vitamin D3) orderable was interchanged for cholecalciferol (vitamin D3) tablet/capsule Given 08/28/2023 8:41 AM C DT 25 mcg Given 08/27/2023 8:01 AM CDT 25 mcg Given 08/26/2023 8:45 AM CDT 25 mcg glucagon injection 1 mg (GlucaGen) 1 mg, intravenous, Every 15 min PRN, low blood sugar, globus sensation in esophagus, Starting on Thu08/25/23 at 0016, For 2 doses Given 08/25/2023 12:43 AM CDT 1 mg Given 08/25/2023 12:25 AM CDT 1 mg heparin (porcine) injection 5,000 Units 5,000 Units, subcutaneous, Every 8 hours scheduled, First dose on Thu08/25/23 at 2200 Given 08/25/2023 9:05 PM CDT 5,000 Units Left Upper Arm (Back ) heparin (porcine) injection 5,000 Units 5,000 Units, subcutaneous, Every 8 hours scheduled, First dose on Thu08/26/23 at 0815 Given 08/26/2023 8:45 AM CDT 5,000 Units Left Lower Abdomen heparin (porcine) injection 5,000 Units 5,000 Units, subcutaneous, 2 times daily, First dose (after last modification) on Thu08/26/23 at 2100 Given 08/28/2023 8:41 AM CDT 5,000 Units Left Lower Abdomen Given 08/27/2023 8:22 PM CDT 5,000 Units L eft Upper Arm (Back) Given 08/27/2023 8:01 AM CDT 5,000 Units R ight Upper Arm (Back) insulin aspart U-100 injection 0-13 Units (NovoLOG FlexPen) 0-13 Units, subcutaneous, 3 times daily, First dose on Thu08/26/23 at 0800, Insulin Scale: Moderate Correction Scale, 140 - 179: 2 units, 180 - 219: 4 units, 220 - 259: 6 units, 260 - 299: 8 units, 300 - 339: 10 units, 340 - 379: 12 units, 380 - 399: 13 units, Greater than 399: Call service writing Insulin orders Given 08/28/2023 12:36 PM CDT 2 Units Left Upper Arm (Back ) Given 08/27/2023 5:16 PM CDT 4 Units Ri ght Upper Arm (Back) Given 08/27/2023 11:46 AM CDT 2 Units L eft Upper Arm (Back) insulin glargine injection 5 Units 5 Units, subcutaneous, Every morning, First dose on Thu08/27/23 at 0900 Given 08/28/2023 9:20 AM CDT 5 Units Right Upper Arm (Enedina k) Given 08/27/2023 9:54 AM CDT 5 Units Ri ght Lower Abdomen iohexoL 300 mg iodine/mL solution 1-200 mL (OMNIPAQUE) 1-200 mL, intravenous, Once in imaging, contrast, Starting on Thu08/27/23 at 1228, For 1 dose, Imaging Protocol Orders, Dose per Radiant Medication Guidelines Given 08/27/2023 12:28 PM CDT 140 mL iopromide 300 mg iodine/mL injection 1-200 mL (ULTRAVIST) 1-200 mL, intravenous, Once in imaging, contrast, Starting on Thu08/26/23 at 1402, For 1 dose, Imaging Protocol Orders, Dose per Radiant Medication Guidelines Given 08/26/2023 2:02 PM CDT 80 mL ipratropium-albuteroL 0.5-2.5 mg/3 mL nebulizer solution 3 mL (DUONEB) 3 mL, nebulization, 4 times daily PRN, wheezing, shortness of breath, Starting on Thu08/25/23 at 2121 ketorolac injection 15 mg (TORADOL) 15 mg, intravenous, Once, On Thu08/25/23 at 1352, For 1 dose, Adult IV push rate: Over 15 seconds. Peds IV push rate: Over 1 minute. Doses > 15 mg IV/IM are discouraged due to lack of additional analgesic benefit. Given 08/25/2023 2:31 PM CDT 15 mg Lactated Ringer's bolus 1,000 mL 1,000 mL, intravenous, at 1,000 mL/hr, Administer over 1 Hours, Once, On Thu08/26/23 at 0700, For 1 dose New Bag 08/26/2023 6:45 AM CDT 1,000 mL 1000 mL/hr lactulose solution 10 g (CHRONULAC) 10 g, oral, 3 times daily, First dose on Thu08/27/23 at 1400, Titrate to 3 bm daily Given 08/27/2023 1:05 PM CDT 10 g magnesium sulfate in water IVPB 2 g 2 g, intravenous, at 25 mL/hr, Administer over 120 Minutes, Once, On Thu08/26/23 at 1245, For 1 dose, Over 2 hours. New Bag 08/26/2023 12:51 PM CDT 2 g 25 mL/hr magnesium sulfate in water IVPB 2 g 2 g, intravenous, at 25 mL/hr, Administer over 120 Minutes, Once, On Thu08/27/23 at 0745, For 1 dose, Over 2 hours. New Bag 08/27/2023 7:45 AM CDT 2 g 25 mL/hr metroNIDAZOLE in NaCl (iso osm) IVPB 500 mg (FLAGYL) 500 mg, intravenous, at 200 mL/hr, Administer over 30 Minutes, Once, On Thu08/25/23 at 1403, For 1 dose, Indications: Respiratory tract infection, healthcare associated New Bag 08/25/2023 2:36 PM CDT 500 mg 200 mL/hr metroNIDAZOLE in NaCl (iso osm) IVPB 500 mg (FLAGYL) 500 mg, intravenous, at 200 mL/hr, Administer over 30 Minutes, Every 8 hours, First dose on Thu08/26/23 at 0530, Indications: Blood stream infection, Respiratory tract infection, community acquired New Bag 08/27/2023 4:56 AM CDT 500 mg 2 00 mL/hr New Bag 08/26/2023 9:17 PM CDT 500 mg 200 mL/hr New Bag 08/26/2023 12:57 PM CDT 500 mg 200 mL/hr metroNIDAZOLE in NaCl (iso osm) IVPB 500 mg (FLAGYL) 500 mg, intravenous, at 200 mL/hr, Administer over 30 Minutes, Every 8 hours, First dose on Thu08/27/23 at 1300, Indications: Intra-abdominal infection, community acquired, Respiratory tract infection, community acquired New 08/28/2023 5:53 AM CDT 500 mg 200 mL/hr 08/27/2023 8:30 PM CDT 500 mg 200 mL/hr 08/27/2023 1:05 PM CDT 500 mg 200 mL/hr metroNIDAZOLE tablet 500 mg (FLAGYL) 500 mg, oral, 3 times daily, First dose on Thu08/28/23 at 1400, Indications: Blood stream infection NaCl 0.9 % bolus 1,000 mL 1,000 mL, intravenous, at 1,000 mL/hr, Administer over 1 Hours, Once, On Thu08/25/23 at 1002, For 1 dose New 08/25/2023 10:30 AM CDT 1,000 mL 1000 mL/hr NaCl 0.9 % bolus 1,000 mL 1,000 mL, intravenous, at 1,000 mL/hr, Administer over 1 Hours, Once, On Thu08/25/23 at 1440, For 1 dose 08/25/2023 3:26 PM CDT 1,000 mL 1000 mL/hr NaCl 0.9 % bolus 500 mL 500 mL, intravenous, at 500 mL/hr, Administer over 1 Hours, Once, On Thu08/25/23 at 2200, For 1 dose 08/25/2023 9:51 PM CDT 500 mL 500 mL/hr NaCl 0.9% infusion 75 mL/hr, intravenous, Continuous, Starting on Thu08/25/23 at 0032 08/25/2023 12:41 AM CDT 75 mL/hr 75 mL/hr norepinephrine 16 mcg/mL in D5W 250 mL infusion 0-0.3 mcg/kg/min ? 65 kg Dosing weight (0-73.125 mL/hr, rounded to 0-73.13 mL/hr), intravenous, Continuous, Starting on Thu08/26/23 at 0845, Protect from light and avoid extravasation, Patient Type: Standard, Initiate at: 0.05 mcg/kg/min, Titrate at: 0.05 mcg/kg/min. every 5 min., Wean at: 0.01 mcg/kg/min. every 5 min., Goal: Other, Goal: 63 Rate/Dose Verify 08/27/2023 5:00 AM CDT 0.02 mcg/kg/min 4.88 mL/hr Rate/Dose Verify 08/27/2023 4:00 AM CDT 0.02 mcg/kg/min 4. 88 mL/hr Rate/Dose Verify 08/27/2023 3:00 AM CDT 0.02 mcg/kg/min 4. 88 mL/hr pantoprazole DR tablet 40 mg (PROTONIX) 40 mg, oral, 2 times daily before breakfast and dinner, First dose on Thu08/25/23 at 2115, pantoprazole 40 mg oral daily was interchanged for omeprazole 20 or 40 mg oral daily Swallow whole. Do NOT crush, chew, or split tablet. Given 08/28/2023 6:01 AM CDT 40 mg Given 08/27/2023 5:14 PM CDT 40 mg Given 08/27/2023 6:46 AM CDT 40 mg polyethylene glycol powder packet 17 g (MIRALAX) 17 g, oral, Daily, First dose on Thu08/26/23 at 0900, Ordered sequence of administration: polyethylene glycol, then bisacodyl until BM achieved. Avoid mixing with starch-based thickened liquids. Given 08/28/2023 8:41 AM CDT 17 g Given 08/27/2023 8:01 AM CDT 17 g potassium chloride ER tablet 40 mEq (KLORCON/K-TAB) 40 mEq, oral, Once, On Thu08/27/23 at 0745, For 1 dose, For K 3-3.4 mEq/L - give total of 40 mEq Swallow whole. Do NOT crush, chew, or split tablet., Monitor the following for replacement: Potassium, Replace Potassium per: Standard Schedule Given 08/27/2023 7:42 AM CDT 40 mEq rosuvastatin tablet 20 mg (CRESTOR) 20 mg, oral, Daily at bedtime, First dose on Thu08/25/23 at 2115 Given 08/27/2023 8:21 PM CDT 20 mg Given 08/26/2023 9:01 PM CDT 20 mg sennosides-docusate sodium 8.6-50 mg per tablet 1 tablet (SENOKOT-S) 1 tablet, oral, 2 times daily, First dose on Thu08/26/23 at 0900, Do not give if patient has diarrhea. Given 08/27/2023 8:01 AM CDT 1 tablet Given 08/26/2023 9:01 PM CDT 1 tablet Given 08/26/2023 8:45 AM CDT 1 tablet sennosides-docusate sodium 8.6-50 mg per tablet 2 tablet (SENOKOT-S) 2 tablet, oral, 2 times daily, First dose (after last modification) on Mamta 08/27/23 at 2100, Do not give if patient has diarrhea. Given 08/28/2023 8:41 AM CDT 2 tablets sodium chloride (PF) 0.9 % injection 1-100 mL 1-100 mL, intravenous, Once, On Thu08/26/23 at 1430, For 1 dose, Imaging Protocol Orders, Dose per Radiant Medication Guidelines Given 08/27/2023 12:29 PM CDT 50 mL sodium chloride 0.9 % injection 10 mL 10 mL, intravenous, As needed, line care, Starting on Thu08/25/23 at 2054, Peripheral Intravenous Catheter and Rapid Infusion Catheter, prior to blood sampling, post blood transfusion or post blood sampling Given 08/26/2023 2:03 PM CDT 10 mL sodium chloride 0.9 % injection 3 mL 3 mL, intravenous, Every 12 hours scheduled, First dose on Thu08/26/23 at 0900, Peripheral Intravenous Catheter and Rapid Infusion Catheter, when no infusion to maintain patency Given 08/28/2023 8:42 AM CDT 3 mL Given 08/27/2023 8:22 PM CDT 3 mL Given 08/27/2023 8:01 AM CDT 3 mL vancomycin in NaCl 0.9% IVPB 1,250 mg 1,250 mg (rounded from 1,316 mg = 20 mg/kg ? 65.8 kg), intravenous, at 167 mL/hr, Administer over 90 Minutes, Once, On Thu08/26/23 at 1045, For 1 dose, Drug Monitoring Program: Pharmacist to adjust medication dosing based on indication and drug clearance factors., Indications: Blood stream infection, Respiratory tract infection, healthcare associated New Bag 08/26/2023 10:57 AM CDT 1,250 mg 167 mL/h r documented in this encounter Active and Recently Administered Medications Times are shown in CDT. Scheduled Medication Order 08/26/2023 08/27/2023 08/28/2023 cefTRIAXone in dextrose (iso osm) IVPB 2 g (ROCEPHIN) (CANCELED) 2 g, intravenous, at 200 mL/hr, Administer over 15 Minutes, Every 24 hours, First dose on Thu08/26/23 at 1400, Drug Monitoring Program: Pharmacist to adjust medication dosing based on indication and drug clearance factors., Indications: Respiratory tract infection, community acquired 1428 (New Bag - Provider: Estelle Hernandez R.N.) cefTRIAXone in dextrose (iso osm) IVPB 2 g (ROCEPHIN) 2 g, intravenous, at 200 mL/hr, Administer over 15 Minutes, Every 24 hours, First dose on Thu08/27/23 at 1400, Drug Monitoring Program: Pharmacist to adjust medication dosing based on indication and drug clearance factors., Indications: Intra-abdominal infection, community acquired, Respiratory tract infection, community acquired 1359 (New Bag - Provider: Molly Gutiérrez R.N.) 1136 (New Bag - Provider: Bebe Hodgson.S.NMarcus, R.N.) cholecalciferol (vitamin D3) tablet 25 mcg 25 mcg, oral, Daily, First dose on Thu08/26/23 at 0900, cholecalciferol (vitamin D3) orderable was interchanged for cholecalciferol (vitamin D3) tablet/capsule 0845 (Given - Provider: Estelle Hernandez R.N.) 0801 (Given - Provider: Estelle Hernandez RAyanna.) 0841 (Given - Provider: Bebe Hodgson.S.N., R.N.) heparin (porcine) injection 5,000 Units (CANCELED) 5,000 Units, subcutaneous, Every 8 hours scheduled, First dose on Thu08/26/23 at 0815 0845 (Given - Provider: Papa Silvestre.N.) heparin (porcine) injection 5,000 Units 5,000 Units, subcutaneous, 2 times daily, First dose (after last modification) on Thu08/26/23 at 2100 2101 (Given - Provider: Vandana Riddle RMarcusN.) 0801 (Given - Provider: Estelle Hernadnez R.N.)2022 (Given - Provider: Ricky Ramírez RMarcusN.) 0841 (Given - Provider: Bebe Hodgson.S.N., R.N.) insulin aspart U-100 injection 0-13 Units (NovoLOG FlexPen) 0-13 Units, subcutaneous, 3 times daily, First dose on Thu08/26/23 at 0800, Insulin Scale: Moderate Correction Scale, 140 - 179: 2 units, 180 - 219: 4 units, 220 - 259: 6 units, 260 - 299: 8 units, 300 - 339: 10 units, 340 - 379: 12 units, 380 - 399: 13 units, Greater than 399: Call service writing Insulin orders 0910 (Not Given - Provider: Estelle Hernandez R.N. - Reason: Order parameters not met)1247 (Given - Provider: Estelle Hernandez R.N.)1759 (Given - Provider: Estelle Hernandez R.N.) 0755 (Given - Provider: Estelle Hernandez R.N.)1146 (Given - Provider: Molly Gutiérrez R.N. - Comment: [facility] [place] 151)1716 (Given - Provider: Molly Gutiérrez R.N. - Comment: rm [phone]) 0901 (Not Given - Provider: Shamir Rick M.S.NMarcus, R.N. - Reason: Order parameters not met)1236 (Given - Provider: Dominique HodgsonS.NMarcus, R.N.) insulin glargine injection 5 Units 5 Units, subcutaneous, Every morning, First dose on Thu08/27/23 at 0900 0954 (Given - Provider: Estelle Hernandez R.N.) 0920 (Given - Provider: Bebe Hodgson.S.N., R.N.) Lactated Ringer's bolus 1,000 mL (COMPLETED) 1,000 mL, intravenous, at 1,000 mL/hr, Administer over 1 Hours, Once, On Thu08/26/23 at 0700, For 1 dose 0645 (New Bag - Provider: Jayda Bradley RMarcusNMarcus) lactulose solution 10 g (CHRONULAC) 10 g, oral, 3 times daily, First dose on Thu08/27/23 at 1400, Titrate to 3 bm daily 1305 (Given - Provider: Molly Gutiérrez R.N.)2018 (Not Given - Provider: rBynn CevallosN. - Reason: Patient/family refused) 0910 (Not Given - Provider: Zenaida Hodgson, R.N. - Reason: Patient/family refused) magnesium sulfate in water IVPB 2 g (COMPLETED) 2 g, intravenous, at 25 mL/hr, Administer over 120 Minutes, Once, On Thu08/26/23 at 1245, For 1 dose, Over 2 hours. 1251 (New Bag - Provider: Estelle Hernandez R.N.) magnesium sulfate in water IVPB 2 g (COMPLETED) 2 g, intravenous, at 25 mL/hr, Administer over 120 Minutes, Once, On Thu08/27/23 at 0745, For 1 dose, Over 2 hours. 0745 (New Bag - Provider: Estelle Hernandez R.N.) metroNIDAZOLE in NaCl (iso osm) IVPB 500 mg (FLAGYL) (CANCELED) 500 mg, intravenous, at 200 mL/hr, Administer over 30 Minutes, Every 8 hours, First dose on Thu08/26/23 at 0530, Indications: Blood stream infection, Respiratory tract infection, community acquired 0555 (New Bag - Provider: Jayda Bradley RKlever)1257 (New Bag - Provider: Estelle Hernandez RKlever)2117 (New Bag - Provider: Vandana Riddle RMarcusN.) 0456 (New Bag - Provider: Vandana Riddle RMarcusN.) metroNIDAZOLE in NaCl (iso osm) IVPB 500 mg (FLAGYL) (CANCELED) 500 mg, intravenous, at 200 mL/hr, Administer over 30 Minutes, Every 8 hours, First dose on Thu08/27/23 at 1300, Indications: Intra-abdominal infection, community acquired, Respiratory tract infection, community acquired 1305 (New Bag - Provider: Molly Gutiérrez R.N.)2030 (New Bag - Provider: Ricky Ramírez RMarcusN.) 0553 (New Bag - Provider: Ricky Ramírez R.N.) metroNIDAZOLE tablet 500 mg (FLAGYL) 500 mg, oral, 3 times daily, First dose on Thu08/28/23 at 1400, Indications: Blood stream infection pantoprazole DR tablet 40 mg (PROTONIX) 40 mg, oral, 2 times daily before breakfast and dinner, First dose on Thu08/25/23 at 2115, pantoprazole 40 mg oral daily was interchanged for omeprazole 20 or 40 mg oral daily Swallow whole. Do NOT crush, chew, or split tablet. 0612 (Given - Provider: Jayda Bradley RMarcusN.)1534 (Given - Provider: Brynn SilvestreN.) 0646 (Given - Provider: Vandana Riddle R.N.)1714 (Given - Provider: Molly Gutiérrez RMarcusN.) 0601 (Given - Provider: Ricky Ramírez R.N.) polyethylene glycol powder packet 17 g (MIRALAX) 17 g, oral, Daily, First dose on Thu08/26/23 at 0900, Ordered sequence of administration: polyethylene glycol, then bisacodyl until BM achieved. Avoid mixing with starch-based thickened liquids. 0846 (Not Given - Provider: Estelle Hernandez RAyanna. - Reason: Patient/family refused) 0801 (Given - Provider: Estelle Hernandez R.N.) 0841 (Given - Provider: Dominique HodgsonSKlever, R.N.) potassium chloride ER tablet 40 mEq (KLORCON/K-TAB) (COMPLETED) 40 mEq, oral, Once, On Thu08/27/23 at 0745, For 1 dose, For K 3-3.4 mEq/L - give total of 40 mEq Swallow whole. Do NOT crush, chew, or split tablet., Monitor the following for replacement: Potassium, Replace Potassium per: Standard Schedule 0742 (Given - Provider: Estelle Hernandez R.N.) rosuvastatin tablet 20 mg (CRESTOR) 20 mg, oral, Daily at bedtime, First dose on Thu08/25/23 at 2115 210 (Given - Provider: Vandana Riddle RMarcusN.) 2020 (Given - Provider: Ricky Ramírez R.N.) sennosides-docusate sodium 8.6-50 mg per tablet 1 tablet (SENOKOT-S) (CANCELED) 1 tablet, oral, 2 times daily, First dose on Thu08/26/23 at 0900, Do not give if patient has diarrhea. 0845 (Given - Provider: Estelle Hernandez RMarcusN.)2100 (Given - Provider: Vandana Riddle R.N.) 800 (Given - Provider: Estelle Hernandez R.Rian.) sennosides-docusate sodium 8.6-50 mg per tablet 2 tablet (SENOKOT-S) 2 tablet, oral, 2 times daily, First dose (after last modification) on Thu08/27/23 at 2100, Do not give if patient has diarrhea. 2016 (Not Given - Provider: Ricky Ramírez, R.N. - Reason: Patient/family refused) 0841 (Given - Provider: Bebe Hodgson.S.N., R.N.) sodium chloride (PF) 0.9 % injection 1-100 mL (COMPLETED) 1-100 mL, intravenous, Once, On Thu08/26/23 at 1430, For 1 dose, Imaging Protocol Orders, Dose per Radiant Medication Guidelines 1406 (Not Given - Provider: Love Arreguin RKlever - Reason: Other - Comment: per protocol) 1229 (Given - Provider: Isauro Spear R.N.) sodium chloride (PF) 0.9 % injection 1-100 mL 1-100 mL, intravenous, Once, On Thu08/27/23 at 1245, For 1 dose, Imaging Protocol Orders, Dose per Radiant Medication Guidelines 1246 (Canceled Entry - Provider: Molly Gutiérrez RMarcusNMarcus) sodium chloride 0.9 % injection 3 mL 3 mL, intravenous, Every 12 hours scheduled, First dose on Thu08/26/23 at 0900, Peripheral Intravenous Catheter and Rapid Infusion Catheter, when no infusion to maintain patency 09 (Given - Provider: Estelle Hernandez RAyanna.)2116 (Given - Provider: Vandana Riddle R.N.) 08 (Given - Provider: Estelle Hernandez R.N.)2021 (Given - Provider: Ricky Ramírez R.N.) 0842 (Given - Provider: Bebe Hodgson.S.N., R.N.) vancomycin in NaCl 0.9% IVPB 1,250 mg (CANCELED) 1,250 mg (rounded from 1,316 mg = 20 mg/kg ? 65.8 kg), intravenous, at 167 mL/hr, Administer over 90 Minutes, Once, On Thu08/26/23 at 1045, For 1 dose, Drug Monitoring Program: Pharmacist to adjust medication dosing based on indication and drug clearance factors., Indications: Blood stream infection, Respiratory tract infection, healthcare associated 1057 (New Bag - Provider: Estelle Hernandez R.N.) Continuous Medication Order 08/26/2023 08/27/2023 08/28/2023 norepinephrine 16 mcg/mL in D5W 250 mL infusion (CANCELED) 0-0.3 mcg/kg/min ? 65 kg Dosing weight (0-73.125 mL/hr, rounded to 0-73.13 mL/hr), intravenous, Continuous, Starting on Thu08/26/23 at 0845, Protect from light and avoid extravasation, Patient Type: Standard, Initiate at: 0.05 mcg/kg/min, Titrate at: 0.05 mcg/kg/min. every 5 min., Wean at: 0.01 mcg/kg/min. every 5 min., Goal: Other, Goal: 63 0850 (New Bag - Provider: Estelle Hernandez R.N.)0900 (Rate/Dose Verify - Provider: Estelle Hernandez R.N.)0936 (Rate/Dose Change - Provider: Estelle Hernandez R.N.)0959 (Rate/Dose Change - Provider: Estelle Hernandez R.N. - Comment: Per CCM1)1000 (Rate/Dose Verify - Provider: Estelle Hernandez R.N.)1038 (Rate/Dose Change - Provider: Estelle Hernandez R.N.)1044 (Rate/Dose Change - Provider: Estelle Hernandez R.N.)1057 (Rate/Dose Change - Provider: Estelle Hernandez R.N.)1100 (Rate/Dose Verify - Provider: Estelle Hernandez R.N.)1200 (Rate/Dose Verify - Provider: Estelle Hernandez R.N.)1300 (Rate/Dose Verify - Provider: Estelle J Haak, R.N.)1400 (Rate/Dose Verify - Provider: Estelle Hernandez R.N.)1425 (Rate/Dose Change - Provider: Estelle Hernandez R.N.)1500 (Rate/Dose Verify - Provider: Estelle Hernandez R.N.)1550 (Rate/Dose Change - Provider: Estelle Hernandez R.N.)1600 (Rate/Dose Verify - Provider: Estelle Hernandez R.N.)1700 (Rate/Dose Change - Provider: Estelle Hernandez R.N.)1800 (Rate/Dose Verify - Provider: Estelle Hernandez R.N.)1808 (Rate/Dose Change - Provider: Estelle Hernandez R.N.)1900 (Rate/Dose Verify - Provider: Estelle Hernandez R.N.)2000 (Rate/Dose Verify - Provider: Vandana Riddle R.N.)2016 (Rate/Dose Change - Provider: Vandana Riddle R.N.)2100 (Rate/Dose Verify - Provider: Vandana Riddle, R.N.)2123 (New Bag - Provider: Vandana Riddle, R.N.)2200 (Rate/Dose Verify - Provider: Vandana Riddle, R.N.)2300 (Rate/Dose Verify - Provider: Vandana Riddle, R.N.)2330 (Stopped - Provider: Vandana Riddle, R.N.) 0052 (Restarted - Provider: Vandana Riddle, R.N.)0100 (Rate/Dose Verify - Provider: Vandana Riddle, R.N.)0200 (Rate/Dose Verify - Provider: Vandana Riddle, R.N.)0300 (Rate/Dose Verify - Provider: Vandana Riddle, R.N.)0400 (Rate/Dose Verify - Provider: Vandana Riddle, R.N.)0500 (Rate/Dose Verify - Provider: Vandana Riddle, R.N.)0555 (Stopped - Provider: Vandana Riddle, R.N.) PRN Medication Order 08/26/2023 08/27/2023 08/28/2023 iohexoL 300 mg iodine/mL solution 1-200 mL (OMNIPAQUE) (COMPLETED) 1-200 mL, intravenous, Once in imaging, contrast, Starting on Mamta 08/27/23 at 1228, For 1 dose, Imaging Protocol Orders, Dose per Radiant Medication Guidelines 1228 (Given - Provider: Isauro Spear R.N. - Comment: [id number]) iopromide 300 mg iodine/mL injection 1-200 mL (ULTRAVIST) (COMPLETED) 1-200 mL, intravenous, Once in imaging, contrast, Starting on Thu08/26/23 at 1402, For 1 dose, Imaging Protocol Orders, Dose per Radiant Medication Guidelines 1402 (Given - Provider: Love Arreguin R.N. - Comment: [id number]) ipratropium-albuteroL 0.5-2.5 mg/3 mL nebulizer solution 3 mL (DUONEB) 3 mL, nebulization, 4 times daily PRN, wheezing, shortness of breath, Starting on Thu08/25/23 at 2121 sodium chloride 0.9 % injection 10 mL 10 mL, intravenous, As needed, line care, Starting on Thu08/25/23 at 2054, Peripheral Intravenous Catheter and Rapid Infusion Catheter, prior to blood sampling, post blood transfusion or post blood sampling 1403 (Given - Provider: Love Arreguin RKlever) sodium chloride 0.9 % injection 3 mL 3 mL, intravenous, As needed, line care, Starting on Thu08/25/23 at 2054, Prior to and following infusion and between multiple consecutive infusions: sodium chloride 0.9 % injection documented in this encounter Care Teams Fine Craft Artist Relationship Specialty Start Date End Date Elsewhere, Pcp PCP - General Internal Medicine 08/19/21 documented as of this encounter
--- OUTSIDE RECORDS SUMMARY | 2023-09-12 06:13 | XMS_ITS | Clinical Summary ---
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 Name Role Phone Fay Virk DO Primary Care Provider [phone] Allergies Active Allergy Reactions Criticality Noted Date Comments Acetaminophen Cholestatic Hepatitis,Other - Describe In Comment Field High 09/02/2011 Drug induced Hepatitis Celecoxib Other - Describe In Comment Field 06/12/2020 Patient hospitalized for Acute Kidney Injury for 4 days after taking Celebrex preop while on Lisinopril Kidney Failure Medications Medication Sig Dispensed Refills Start Date End Date Status Ferrous Gluconate 324 mg (38 mg iron) tablet Daily Active cholecalciferol, Vitamin D3, 2,000 unit tablet Daily Active iron,carbonyl-vitam in C (Vitron-C) 65 mg iron- 125 mg Delayed-Release tablet Take 1 Tablet by mouth once daily. Active ascorbic acid, vitamin C, (VITAMIN C) 500 mg tablet Take 500 mg by mouth. Active eplerenone (INSPRA) 50 mg tabletIndications:A scites of liver Take 1 Tablet (50 mg) by mouth once daily. 60 Tablet 5 3 Active omeprazole (PRILOSEC) 20 mg Delayed-Release capsuleIndications: Cirrhosis, non-alcoholic (HC),Portal hypertension with esophageal varices (HC),Abdominal bloating Take 1 Capsule (20 mg) by mouth once daily before a meal. 90 Capsule 1 3 Active empagliflozin (Jardiance) 10 mg tabletIndications:A scites of liver,Type 2 diabetes mellitus without complication, without long-term current use of insulin (HC) TAKE ONE TABLET BY MOUTH DAILY 90 Tablet 3 4 Active traZODone (DESYREL) 50 mg tabletIndications:I nsomnia, idiopathic Take 0.5 Tablets (25 mg) by mouth at bedtime. 31 Tablet 4 Active rosuvastatin (CRESTOR) 20 mg tabletIndications:H yperlipidemia, unspecified hyperlipidemia type TAKE 1 TABLET (20 MG) BY MOUTH AT BEDTIME. 90 Tablet 2 4 Active metFORMIN (GLUCOPHAGE XR) 500 mg Extended-Release tabletIndications:T ype 2 diabetes mellitus without complication, without long-term current use of insulin (HC) Take 1 Tablet (500 mg) by mouth two times daily with meals. 60 Tablet 4 Active furosemide (LASIX) 20 mg tabletIndications:O ther ascites Take 2 Tablets (40 mg) by mouth two times daily. 120 Tablet 2 4 12/02/19 24 Active rosuvastatin (CRESTOR) 20 mg tabletIndications:H yperlipidemia, unspecified hyperlipidemia type TAKE 1 TABLET (20 MG) BY MOUTH AT BEDTIME. 90 Tablet 1 3 08/30/19 24 Discontinued metFORMIN (GLUCOPHAGE XR) 500 mg Extended-Release tabletIndications:T ype 2 diabetes mellitus without complication, without long-term current use of insulin (HC) TAKE ONE TABLET (500 MG) BY MOUTH TWO TIMES DAILY WITH MEALS 180 Tablet 4 08/30/19 24 Discontinued(*Av ailability/Formu nicho change/Cost of medication) furosemide (LASIX) 20 mg tabletIndications:O ther ascites TAKE TWO TABLETS(40MG ) BY MOUTH EVERY MORNING 180 Tablet 4 08/30/19 24 Discontinued furosemide (LASIX) 20 mg tabletIndications:O ther ascites TAKE TWO TABLETS(40MG ) BY MOUTH EVERY MORNING 180 Tablet 4 09/03/19 24 Discontinued Active Problems Problem Noted Date Diagnosed Date Thrombocytopenia 05/12/2022 Deep vein thrombosis (DVT) of lower extremity Stricture esophagus 11/11/2021 Primary hypertension 08/07/2021 Type 2 diabetes mellitus wit h hyperglycemia, without long-term current use of insulin 04/01/2021 Pancytopenia 11/06/2020 Ascites of liver 07/20/2020 Anxiety 06/25/2020 Hyperlipidemia 06/25/2020 Portal hypertension with esophageal varices 07/2020 GERD (gastroesophageal reflux disease) Primary osteoarthritis of right hip 05/17/2020 Primary osteoarthritis of left hip 02/02/2020 Vitamin D deficiency 06/29/2019 Autoimmune hepatitis 10/13/2018 Rectal varices 09/15/2018 Cirrhosis, non-alcoholic 08/25/2018 Benign prostatic hyperplasia 04/19/2015 Overview: PSA every other year Inverted follicular keratosis 10/05/2012 Frozen shoulder 09/28/2012 Overview: Right Encounters Date Type Department Care Team Description 09/01/2023 Refill [facility] [address] [place] [address] Fay Virk DO Refill Request (Furosemide) 08/28/2023 Refill [facility] [address] [place] [address] Fay Virk DO Refill Request (Metformin, Furosemide, Rosuvastatin) 06/29/2023 10:30 AM CDT Office Visit [facility] [address] [place] [address] Jay Cha MD Consult (abdominal wall hernia) 06/29/2023 Travel 06/29/2023 Refill [facility] [address] [place] [address] Fay Virk DO Refill Request (Metformin, Furosemide) 06/18/2023 2:30 PM CDT Ancillary Procedure [facility] [address] [place] [address] 06/18/2023 Travel from Last 3 Months Immunizations Name Administration Dates Next Due COVID-19 vaccine (Moderna 10 0mcg/0.5mL) ZOHREH OZUNA 06/22/2020,05/23/2020 Hepatitis B, Unspecified 05/22/1992,12/20/1991,0 11/22/1991 Influenza Virus, Unspecified 12/23/2017,12/22/19 08 Influenza, High-dose Quadriv alent Inactivated 11/21/2021 Influenza, IIV3 (Age 6-35 mos) 12/22/2007 Influenza, Inactivated AIIV4 (Age 65+ Years) Preserv Free 12/24/2020 Pneumococcal Poly,23-Valent (Pneumovax) 09/29/19 14 Pneumococcal conj 13-Valent (Prevnar 13) 015 Tdap 09/02/2011,12/01/2007 Zoster (Zostavax-ZVL, live) 10/07/2012 Social History Tobacco Use Types Packs/Day Years Used Date Smoking Tobacco: Never Passive Smoke Exposure: Never Smokeless Tobacco: Never Tobacco Cessation:Counseling Given: Yes Alcohol Use Standard Drinks/Week Comments Not Currently 0 (1 standard drink = 0.6 oz pur e alcohol) 2019 sober PHQ-2 Answer Date Recorded PHQ-2 TOTAL SCORE 0 05/12/2022 Social Connections Answer Date Recorded Frequency of Communication with Friends and Fami ly Not on file 07/21/2022 Financial Resource Strain Answer Date R ecorded Difficulty of Paying Living Expenses 3 07/16/2021 Difficulty of Paying Living Expenses Not on file 07/16/2021 Food Insecurity Answer Date Recorded Worried About Running Out of Food in the Last Ye ar 1 07/16/2021 Transportation Needs Answer Date Record ed Lack of Transportation (Medical) 1 07/16/2021 Housing Stability Answer Date Recorded Unable to Pay for Housing in the Last Year 1 07/16/2021 Sex and Gender Information Value Date Recorded Sex Assigned at Not on file Gender Identity Not on file Sexual Orientation Not on file Obstetrics History Last Filed Vital Signs Vital Sign Reading Time Taken Comments Blood Pressure 122/74 06/29/2023 10:28 AM CDT Pulse 80 06/29/2023 10:28 AM CDT Temperature 36.6 ??C (97.9 ??F) 06/29/2023 1 0:28 AM CDT Respiratory Rate 16 06/29/2023 10:2 8 AM CDT Oxygen Saturation 97% 06/29/2023 10: 28 AM CDT Inhaled Oxygen Concentration - - Weight 68.6 kg (151 lb 3.2 oz) 06/29/19 10:28 AM CDT with shoes Height 172 cm (5' 7.7) 10/13/2022 9:41 AM CDT Body Mass Index 23.19 10/13/2022 9:41 AM CDT Plan of Treatment Health Maintenance Due Date Last Done Comments Zoster (shingles) series for age 50+ (2 of 3) 12/02/2012 10/07/2012 Tetanus booster 09/01/2021 09/02/2011, 12/01/2007 COVID-19 vaccine series ( season) 2022 09/18/2021, 03/20/2021, 06/22/2020, Additional history exists Depression screening for age 12+ 05/12/2023 05/12/2022, 04/01/2022, 08/27/2020, Additional history exists Medicare Wellness for age 65+ 05/13/2023 05/12/2022, 08/27/2020 BMI (ht and wt on same day) for age 18+ 10/14/2023 10/13/2022, 05/12/2022, 11/11/2021, Additional history exists Influenza for age 65+ 11/22/2023 11/21/2021 , 12/24/2020, 12/23/2017, Additional history exists Lipids for age 45-75 05/12/2027 05/12/2022, 07/05/19 21 Colonoscopy through age 75 09/15/202809/15 (Verified in Care Everywhere or Patient Record) Tdap Completed 09/02/2011, 12/01/2007 Pneumococcal series for age 65+ Completed 09/29/2014, 09/28/2013 Hepatitis C screening for age 18-79 Addressed 08/25/2018 (Verified in Care Everywhere or Patient Record) Overridden with the intention of not completing the topic Procedures Procedure Name Priority Date/Time Associated Diagnosis Comments US VENOUS LOWER EXTREMITY LEFT Routine 06/18/2023 2:52 PM CDT Left leg swelling Thigh lump, left LC LIPID PANEL Routine 05/12/2022 8:33 AM [employer] Type 2 diabetes mellitus with hyperglycemia, without long-term current use of insulin (HC) from Last 3 Months or Most Recently Relevant to Health Maintenance Results * US VENOUS LOWER EXTREMITY LEFT (06/18/2023 2:52 PM CDT) Anatomical Region Laterality Modality LEGS, LEG L, Abdomen Ultrasound 06/18/2023 9:07 PM CDT Impressions 06/18/2023 9:07 PM CDT No evidence of deep venous thrombosis left lower extremity. Dictated by Raymundo Callahan MD @ 06/18/2023 9:07:15 PM (Electronically Signed) Narrative 06/18/2023 9:07 PM CDT For Patients: ??As a result of the Cures Act, medical imaging exams and procedure reports are released immediately into your electronic medical record. ??You may view this report before your referring provider. ??If you have questions, please contact your health care provider. INDICATION: Left thigh lump and left leg swelling TECHNIQUE: Ultrasound venous duplex lower left extremity. ??Compression venous exam was performed using malone-scale, color Doppler, and spectral Doppler analysis. COMPARISON: None. FINDINGS: Sonographic imaging demonstrates the left common femoral, deep femoral, superficial femoral, popliteal, posterior tibial and greater saphenous and the contralateral right common femoral veins to be fully compressible with normal color Doppler blood flow. Exam submitted for remote interpretation. No definite images of the patient`s thigh lump. Procedure Note Raymundo Callahan MD - 06/18/2023 For Patients: As a result of the Cures Act, medical imagingexams and procedure reports are released immediately into your electronicmedical record. You may view this report before your referring provider.If you have questions, please contact your health care provider. INDICATION: Left thigh lump and left leg swelling TECHNIQUE: Ultrasound venous duplex lower left extremity. Compression venous examwas performed using malone-scale, color Doppler, and spectral Doppleranalysis. COMPARISON: None. FINDINGS: Sonographic imaging demonstrates the left common femoral, deep femoral,superficial femoral, popliteal, posterior tibial and greater saphenous andthe contralateral right common femoral veins to be fully compressible withnormal color Doppler blood flow. Exam submitted for remote interpretation.No definite images of the patient`s thigh lump. IMPRESSION: No evidence of deep venous thrombosis left lower extremity. Dictated by Raymundo Callahan MD @ 06/18/2023 9:07:15 PM (Electronically Signed) Fay Virk DO US * LC LIPID PANEL (05/12/2022 8:33 AM [employer] [employer]) Cholesterol, Total 134 100 - 199 mg/dL 05/15/2022 12:06 AM [facility] Triglycerides 105 0 - 149 mg/dL 05/15/2022 12:06 AM [facility] HDL Cholesterol 58 >39 mg/dL 12:[address] [facility] ([facility]) VLDL Cholesterol Leo 19 5 - 40 mg/dL 05/15/2022 12:[address] [facility] ([facility]) LDL Chol Calc ([facility]) 57 0 - 99 mg/dL 05/15/2022 12:06 AM [facility] ([facility]) Blood BLOOD SPECIMEN / Unknown Venipuncture / Unknown 05/12/2022 8:33 AM [employer] [facility] [employer] 05/12/2022 8:33 AM [employer] [facility] [employer] Narrative [facility] ([facility] - 05/15/2022 12:06 AM [employer] [facility]formed at: ??01 - 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
--- OUTSIDE RECORDS SUMMARY | 2023-09-12 06:13 | XMS_ITS | Encounter Summary ---
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 [address] [place] [phone] [facility] Referral ID Status Reason Start Date Expiration Date Visits Re quested Visits Authorized [id number] Closed 05/14/2023 05/13/2024 1 1 DRY TECHNICIAN Reason for Visit * Reason Onset Date Comments Pre-visit Testing Orders 05/14/2023 Encounter Details Date Type Department Care Team (Latest Contact Info) Description 05/14/2023 Clinical Communication Department of Orthopedic Surgery in [place], [place] [address] [place] [address] Pete Rojas M.D. [address] [place] [address] Pre-visit Testing Orders Social History Tobacco Use Types Packs/Day Years Used Date Smoking Tobacco: Never Smokeless Tobacco: Never Alcohol Use Standard Drinks/Week Comments Not Currently 0 (1 standard drink = 0.6 oz pur e alcohol) Don? t drink [facility] [employer] Answer Date Recorded In the past 12 months has [employer], gas, oil, or water [employer] threatened to shut off services in your [...] week 04/27/2022 How often do you attend [facility] or rastafarian services? More than 4 times per year 04/27/2022 Do you belong to any clubs o r organizations such as confucianist groups, unions, fraternal or athletic groups, or [...] and heating? Not hard at all 04/27/2022 [facility] - Occupational Stress [...] have a [place] place to live 05/07/2023 Education Answer Date Recorded What is the highest level of school you have completed or the highest degree you have received? 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 [address] [place] [phone] 10/16/2023 11:00 AM CDT Appointment Division of Gastroenterology in [place], [place] [address] [place] [address] Marv Myrick M.D., M.P.H. [address] [place] [phone] Discharge Disposition: Home or Self Care 11/10/2023 8:00 AM CDT Appointment Department [facility] [place] [address] [place] [phone] Marv Myrick M.D., M.P.H. [address] [place] [phone] 11/10/2023 3:00 PM CDT Office Visit Division of Gastroenterology in [place], [place] [address] [place] [address] Marv Myrick M.D., M.P.H. [address] [place] [address] documented as of this encounter Results * DX Hip to [...] aspect of the left mid fibular shaft. Hector Calvillo P.A.-C. IMG DIAGN OSTIC IMAGING PROCEDURES * DX [...] left mid fibular shaft. 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
--- OUTSIDE RECORDS SUMMARY | 2023-09-12 06:13 | XMS_ITS | Data Portability ---
Author Organization [facility], [facility] Address [address] [place] [address] Care Team Providers Care Network Support Specialist Name Role Phone TATYANA VIRK Primary Care Provider [phone] Assessment Encounter Date Assessment Date Assessment LastModified by Organization Details LastModified Time 06/24/2023 06/24/2023 72 year old male with scrotal swelling [email or web address] Not available 06/24/2023 23:31:56 Plan of Treatment Reminders Order Date Submit Date Provider Last Modified By Organization Details Last Modified Time Details Appointments None record ed. Lab None record ed. Referral None record ed. Procedures None record ed. Surgeries None record ed. Imaging None record ed. Medication Orders None record ed. Patient TargetsNo targets recorded. Patient InstructionsNo instructions recorded. Reason for Referral None Reported. Results Created Date Observation Date Name Description Value Unit Range Abnormal Flag LastModifiedBy Organization Detail LastModifiedTime 06/22/1910/24/2022 US, scrot um No observ ation record ed. Not Available 06/24/2023 23:24:02 06/22/19 24 10/30/2022 CT, abdom en + pelvi s, w/ contr ast No observ ation record ed. Not Available 06/24/2023 23:24:02 Result Notes None recorded. Procedures Surgical History Date Name Laterality Status Provider Name and Address Organization Details Recorded Time 03/23/19 22 total replacement of hip completed Radha vega [facility] 06/24/2023 11:54:12 03/23/19 09 procedure on shoulder completed Radha vega [facility] 06/24/2023 11:54:06 Appendectomy completed Radha vega [facility] 06/24/2023 11:54:23 Imaging Results Imaging Date Name Status LastModified by Organiz ation Details LastModified Time 10/24/2022 US, scrotum completed Information n ot available 06/24/2023 23:24:02 10/30/2022 CT, abdomen + pelvis, w/ contrast completed Information not available 06/24/2023 23:24:02 Procedure Notes None recorded. Medical Equipment None Reported. Allergies Allergen ID Allergen Name Allergen Category Reaction Reaction Severity Criticality Documentation Date Start Date Code Code System Note Provider Name and Address Organization Details Recorded Time 461111 Tylenol medicatio n Not available Not available Not available 06/24/202384374 3 RxNorm Radha segundo [facility] 4 11:51:59 072584 Celebrex medicatio n Not available Not available Not available 06/24/2023 62877 7 RxNorm Radha Bernalbarbaragregory ratna [facility] 4 11:52:05 Medications Name Sig Start Date Stop Date Status Note LastModified by Organization Details LastModified Time trazodone 50 mg tablet TAKE 1/2 TABLET (25 MG) BY MOUTH AT BEDTIME. 06/23 completed Not Available Not Available Not Available tramadol 50 mg tablet 06/23 completed Not Available Not Available Not Available polymyxin B sulfate 10,000 unit-trimeth oprim 1 mg/mL eye drops INSTILL 1 DROP INTO RIGHT EYE THREE TIMES DAILY FOR 3 DAYS THEN OKAY TO STOP 06/23 completed Not Available Not Available Not Available omeprazole 20 mg capsule,tom yed release TAKE 1 CAPSULE (20 MG) BY MOUTH ONCE DAILY BEFORE A MEAL. active Not Available Not Available No t Available furosemide 20 mg tablet TAKE TWO TABLETS( 40MG) BY MOUTH EVERY MORNING active Not Available Not Available No t Available metformin ER 500 mg tablet,exten ded release 24 hr TAKE ONE TABLET (500 MG) BY MOUTH TWO TIMES DAILY WITH MEALS active Not Available Not Available No t Available oxycodone 5 mg tablet 06/23 completed Not Available Not Available Not Available eplerenone 50 mg tablet TAKE 2 TABLETS (100 MG TOTAL) BY MOUTH DAILY. active Not Available Not Available No t Available rosuvastatin 20 mg tablet TAKE 1 TABLET (20 MG) BY MOUTH AT BEDTIME. active Not Available Not Available No t Available Gas Relief Extra Strength 125 mg chewable tablet TAKE 1 TABLET (125 MG) BY MOUTH 4 TIMES DAILY IF NEEDED FOR GI UPSET FOR UP TO 7 DAYS. MAX DOSE: 500 MG PER 24 HRS 06/23 completed Not Available Not Available Not Available Eliquis 2.5 mg tablet active Not Available Not Available No t Available Jardiance 10 mg tablet TAKE ONE TABLET BY MOUTH DAILY active Not Available Not Available No t Available Vitals Date Recorded Body height Body mass index (BMI) Body weight Provider Name and Address Organization Details Last Updated DateTime 06/24/2023 172.72 cm 21.3 kg/m2 44528.93 g Radha Bella [facility] 06/24/2023 11:47:54 Social History Question Answer Notes LastModified by Organizat ion Details LastModified Time Tobacco Smoking Status Never Smoker Radha vega [facility] 06/24/2023 11:53:39 What Is Your Level Of Alcohol Consumption? None Information not available 06/24/2023 What Is Your Level Of Caffeine Consumption? None Information not available 06/24/2023 What Was The Date Of Your Most Recent Tobacco Screening? 06/24/2023 Information not available 06/24/2023 Do You Use Any Illicit Or Recreational Drugs? No Information not available 06/24/2023 Do You Or Have You Ever Used Any Other Forms Of Tobacco Or Nicotine? No Information not available 06/24/2023 Sex: Male Functional Status None recorded. Mental Status None recorded. Family History Relationship Description Onset Age of this Age Resolved Age Notes Father No current problems or disability Mother No current problems or disability Medical History Condition Response Other N High Blood Pressure N Kidney Stones N Depression N Sexually Transmitted Infection N Cancer N Bleeding Disorder N Lung Disease N GERD/Acid Reflux Y High Cholesterol Y Diabetes Y Heart Disease N Immunizations Vaccine Type Date Status Provider Name and Address Organization Details Recorded Time Influenza, high-dose, quadrivalent, PF 11/21/2021 completed Radha vega [facility] 06/24/2023 11:47:59 Influenza, adjuvanted, quadrivalent, PF 12/24/2020 completed Radha Jena null, [facility] 06/24/2023 11:47:59 COVID-19, mRNA, LNP-S, PF, 100 mcg/0.5mL dose or 50 mcg/0.25mL dose 05/23/2020 completed Radha Jena null, [facility] 06/24/2023 11:47:59 COVID-19, mRNA, LNP-S, PF, 100 mcg/0.5mL dose or 50 mcg/0.25mL dose 06/22/2020 completed Radha Doloresquist null, [facility] 06/24/2023 11:47:59 COVID-19, mRNA, LNP-S, PF, 100 mcg/0.5mL dose or 50 mcg/0.25mL dose 09/18/2021 completed Radha Jena null, [facility] 06/24/2023 11:47:59 COVID-19, mRNA, LNP-S, PF, 100 mcg/0.5mL dose or 50 mcg/0.25mL dose 03/20/2021 completed Radha Jena null, [facility] 06/24/2023 11:47:59 Influenza, split virus, trivalent, PF 12/22/2007 completed Radha Jena null, [facility] 06/24/2023 11:47:59 Past Encounters Encounter ID Performer Location Encounter Start Date Encounter Closed Date Diagnosis/Indication Diagnosis SNOMED-CT Code [id number] Emir Leo MD [facility] [address] [place] [address] 06/24/2023 11:16:24 06/26/2023 08:55:19 Swelling of scrotum 908080116 Pain in scrotum 49715641 Umbilical hernia 7496428 07 Health Concerns Section Related Observation LastModified by Organization Detai ls LastModified Time None Recorded Concern Status LastModified by Organization Details LastModified Time None Recorded Advance Directives Directive None Recorded Payers Encounter Date Sequence Insurance Name Policy Number Policy Bello Covered Member ID Bello Member ID Guarantor Name 06/24/2023 1 [place] [email or web address] [facility] Niko Jennings [id number] Niko Jennings 06/24/2023 2 [id number] [id number] Niko Jennings [id number] Niko Jennings Notes Date Note Type Note Provider Name and Address Organization Details Recorded Time 06/24/2023 text/html HPI Notes: Mr. Jennings is a 72 yoM with a complex medical history who is referred to me by his PCP, Dr. Tatyana Virk, regarding chronic scrotal swelling. Patient was worked up at [facility] where he underwent a dorsal slit for phimosis. Patient reports that they couldn't figure out what was going on with my scrotal or my umbillical hernia. Therefore they wouldn't fix it Patient did undergo both a scrotal US and a CT A/P which are available for my review... his scrotal US noted normal testes but a large echogenic mass-like structure above the left testis concerning for inguinal hernia. Recommended to undergo CT A/p which does not show an inguinal hernia in this location. Patient seeing Dr. Cha of [facility] next week for consultation on umbilical hernia. Emir Leo MD [address], [place], [address], [place] [facility] 06/24/2023 23:35:22
--- OUTSIDE RECORDS SUMMARY | 2023-09-12 06:13 | XMS_ITS | Encounter Summary ---
Author Organization [facility] Address [address] [place] [address] Care Team Providers Care Drying Room Supervisor Name Role Phone Elsewhere, Pcp Primary Care Provider Unavailabl e Encounter Details Date Type Department Care Team (Late st Contact Info) Description 01/21/2016 Historical Ophthalmology [facility] Jemal Almeida M.D. [address] [place] [address] Social History Tobacco Use Types Packs/Day Years Used Date Smoking Tobacco: Never Assessed Sex and Gender Information Value Date Recorded Sex Assigned at Male 02/12/2021 6:18 PM SMALL BUSINESS DIRECTOR Gender Identity Male 11/11/2020 11:30 AM CDT Sexual Orientation Straight 11/11/2020 11 :30 AM CDT documented as of this encounter Progress Notes * Jemal Almeida M.D. - 01/21/2016 8:39 AM CDT Eye General CHIEF COMPLAINT ptosis lids HISTORY OF PRESENT ILLNESS Patient has noted the gradual onset, over several years, of droopy eyelids. Increasingly finds thatthe peripheral visual field is restricted, interfering with reading, driving, and other activities of daily living. No previous eyelid surgery. No double vision or systemic muscle weakness. No dry eye symptoms. Dr. Rosario recently performed a complete eye examination so we will focus today on the patient's chief concern. 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 Perimetry documented superior visual field restriction to ~25?? above fixation for each eye, with ~ 20?? improvement when eyelids raised manually to normal position. Options include observation or ptosis repair. Surgery is reasonable; risks and expectations thoroughly discussed. The patient understands and will consider. Although he is of Medicare age, he has private insurance; we will submit for preauthorization.Patient asked to avoid aspirin, NSAIDs, and other anticoagulants perioperatively if medically safe to do so. Photograph(s) taken for insurance purposes. DIAGNOSIS #1 Ptosis, both upper eyelids, slightly worse on the right CDM Reports - EYEGEN Id: [id number] Status: Fnl documented in this encounter Plan of Treatment Upcoming Encounters Date Type Department Care Team (Latest Contact Info) Description 09/17/2023 10:30 AM CDT Office Visit Clemente mckinnon [facility] in [place], [place] [address] [place] [address] Elen Gomes M.D., Ph.D. [address] [place] [phone] 10/16/2023 11:00 AM CDT Appointment Division of Gastroenterology in [place], [place] [address] [place] [phone] Marv Myrick M.D., M.P.H. [address] [place] [phone] Discharge Disposition: Home or Self Care 11/10/2023 8:00 AM CDT Appointment Department of Laboratory Medicine and Pathology, [facility], in [place], [place] [address] [place] [phone] Marv Myrick M.D., M.P.H. [address] [place] [address] 11/10/2023 3:00 PM CDT Office Visit Division of Gastroenterology in [place], [place] [address] [place] [address] Marv Myrick M.D., M.P.H. [address] [place] [address] documented as of this encounter Visit Diagnoses Not on filedocumented in this encounter Additional Health Concerns Infection Onset Date Last Indicated Resolved Time COVID19 Pending 02/11/2021 02/11/2021 02/11/2021 3 :10 PM SMALL BUSINESS DIRECTOR COVID19 Pending 04/14/2021 04/14/2021 04/14/2021 2 :15 PM SMALL BUSINESS DIRECTOR COVID19 Pending 04/14/2021 04/15/2021 04/15/2021 1 0:43 PM SMALL BUSINESS DIRECTOR COVID19 Pending 08/05/2021 08/05/2021 08/05/2021 4 :09 PM CDT COVID19 Pending 10/23/2021 10/23/2021 10/23/2021 3 :08 PM CDT COVID19 Pending 09/09/2023 09/10/2023 09/10/2023 2 :15 AM CDT documented as of this encounter Care Teams Drying Room Supervisor Relationship Specialty Start Date End Date Elsewhere, Pcp PCP - General Internal Medicine 08/19/21 documented as of this encounter
--- OUTSIDE RECORDS SUMMARY | 2023-09-12 06:13 | XMS_ITS | Continuity of Care Document ---
Author Organization [facility], [facility] Address [address] [place] [address] Care Team Providers Care Assistant Import Manager Name Role Phone TATYANA VIRK Primary Care Provider [phone] Assessment Encounter Date Assessment Date Assessment LastModified [...] Range Abnormal Flag LastModifiedBy Organization Detail LastModifiedTime 06/22/19 24 10/24/2022 US, scrot um No observ ation record ed. Not Available 06/24/2023 23:24:02 06/22/19 24 10/30/2022 CT, abdom en + pelvi s, w/ contr ast No observ ation record ed. Not Available 06/24/2023 23:24:02 Result Notes None recorded. Procedures Surgical History Date Name Laterality Status Provider Name and Address Organization Details Recorded Time 03/23/19 22 total replacement of hip completed Radha vega, [facility] 06/24/2023 11:54:12 03/23/19 09 procedure on shoulder completed Radha vega [facility] 06/24/2023 11:54:06 Appendectomy completed Radha vega, [facility] 06/24/2023 11:54:23 Imaging Results None recorded. Procedure Notes None recorded. Medical Equipment None Reported. Allergies Allergen ID Allergen Name Allergen Category Reaction Reaction Severity Criticality Documentation Date Start Date Code Code System Note Provider Name and Address Organization Details Recorded Time 835777 Tylenol medicatio n Not available Not available Not available 06/24/202375115 3 RxNorm Radha vega [facility] 4 11:51:59 575786 Celebrex medicatio n Not available Not available Not available 06/24/2023 57910 7 RxNorm Radha Doloresquis ratna vega, [facility] 11:52:05 Medications Name Sig Start Date Stop [...] Updated DateTime 06/24/2023 172.72 cm 21.3 kg/m2 62427.93 g Radha Bella [facility] 06/24/2023 11:47:54 Social History Question Answer Notes LastModified by Organizat ion Details LastModified Time Tobacco Smoking Status Never Smoker Radha vega [facility] 06/24/2023 11:53:39 What Is Your Level Of [...] Pressure N Kidney Stones N Depression N Lung Disease N GERD/Acid Reflux Y Sexually Transmitted Infection N Cancer N High Cholesterol Y Diabetes Y Bleeding Disorder N Heart Disease N Immunizations Vaccine Type Date Status Provider Name and Address Organization Details Recorded Time Influenza, high-dose, quadrivalent, PF 11/21/2021 completed Radha vega [facility] 06/24/2023 11:47:59 Influenza, adjuvanted, quadrivalent, PF 12/24/2020 completed Radha vega [facility] 06/24/2023 11:47:59 COVID-19, mRNA, LNP-S, PF, 100 mcg/0.5mL dose or 50 mcg/0.25mL dose 05/23/2020 completed Radha vega [facility] 06/24/2023 11:47:59 COVID-19, mRNA, LNP-S, PF, 100 mcg/0.5mL dose or 50 mcg/0.25mL dose 06/22/2020 completed Radha vega, [facility] 06/24/2023 11:47:59 COVID-19, mRNA, LNP-S, PF, 100 mcg/0.5mL dose or 50 mcg/0.25mL dose 09/18/2021 completed Radha vega [facility] 06/24/2023 11:47:59 COVID-19, mRNA, LNP-S, PF, 100 mcg/0.5mL dose or 50 mcg/0.25mL dose 03/20/2021 completed Radha vega, [facility] 06/24/2023 11:47:59 Influenza, split virus, trivalent, PF 12/22/2007 completed Radha vega [facility] 06/24/2023 11:47:59 Past Encounters Encounter ID Performer Location Encounter Start Date Encounter Closed Date Diagnosis/Indication Diagnosis SNOMED-CT Code [id number] Emir Leo MD [facility] [address] [place] [address] 06/24/2023 11:16:24 06/26/2023 08:55:19 Swelling of scrotum 485984648 Pain in scrotum 27636208 Umbilical hernia 9446844 07 Health Concerns Section Related Observation LastModified by Organization Detai ls LastModified Time None Recorded Concern Status LastModified by Organization Details LastModified Time None Recorded Payers Encounter Date Sequence Insurance Name Policy Number Policy Bello Covered Member ID Bello Member ID Guarantor Name 06/24/2023 1 [place] [employer] Niko Jennings [id number] Niko Jennings 06/24/2023 2 [place] [id number] Niko Jennings [id number] Niko Jennings Notes Date Note Type Note Provider Name and Address Organization Details Recorded Time 06/24/2023 text/html HPI Notes: Mr. Jennings is a 72 yoM with a complex medical history who is referred to me by his PCP, Dr. Tatyana Virk, regarding chronic scrotal swelling. Patient was worked up at [facility] where he underwent a dorsal slit [...] this location. Patient seeing Dr. Cha of [facility] next week for consultation on umbilical hernia. Emir Leo MD [address], [place], [address], [facility] 06/24/2023 23:35:22
== END 2023-09-09 20:59 | disposition home or self-care (01) ==
LOC: AMB 09-12 05:58
PROVIDERS: PCP Family Medicine; Visit Provider Emergency Medicine Emergency Medical Services
DX: R53.1 Weakness (principal)
CPT/HCPCS: A0425; A0427

== ENCOUNTER 2023-09-26 11:36 | Emergency (ER) | payer MEDICARE, BC, SELFPAY ==
[2023-09-26 11:47] VITALS: BP 102/72; PULSE 66; RESP 18; TEMP 36.3; O2SAT 98; BMI 20.5
--- NOTE | 2023-09-26 12:13 | CRLHL7_ITS ---
For Patients: As a result of the Century Cures Act, medical imaging exams and procedure reports are released immediately into your electronic medical record. You may view this report before your referring provider. If you have questions, please contact your health care provider. INDICATION: Lower abdominal pain. History of a recent inguinal and umbilical hernia repair. TECHNIQUE: Multiple axial images were obtained from the diaphragm to symphysis pubis after administration of 65 mL of Isovue-370 intravenously. Sagittal and coronal re-formatted images were obtained. COMPARISON: None. FINDINGS: There is atelectasis in the dependent portion of the lung bases. The liver is nodular and cirrhotic in appearance. The spleen is enlarged measuring 16.3 cm in greatest length. There are varicosities in the upper abdomen. There is a large amount of ascites. The pancreas, gallbladder and adrenals are unremarkable. There is no mass or hydronephrosis in the kidneys. There is no evidence of a bowel obstruction. The abdominal aorta is normal in caliber. There are atherosclerotic calcifications. There is no adenopathy. There bilateral total hip arthroplasties causing streak artifact across the pelvis limiting evaluation of this area. There is scoliosis and degenerative changes in the spine. IMPRESSION: Nodular cirrhotic appearing liver. Splenomegaly with varices in the upper abdomen consistent with portal hypertension. Large amount ascites. Please note that all CT scans at this facility use dose modulation, iterative reconstruction, and/or weight-based dosing when appropriate to reduce radiation dose to as low as reasonably achievable. Dictated by Shamir Johnson MD @ 09/26/2023 1:53:37 PM (Electronically Signed)
--- OUTSIDE RECORDS SUMMARY | 2023-09-26 12:23 | XMS_ITS ---
Author Organization [facility] Address [address] [place] [address] Care Team Providers Care Talent Acquisition Project Manager Name Role Phone Unavailable Unavailable Unavailable Surgery Details Not on file Complications Check Surgery Details section. Procedure Estimated Blood Loss Check Surgery Details section. Procedure Findings Check Surgery Details section. Procedure Specimens Taken Check Surgery Details section.
--- OUTSIDE RECORDS SUMMARY | 2023-09-26 12:23 | XMS_ITS | Clinical Summary ---
Author Organization [facility] Address [address] [place] [address] Care Team Providers Care Spark Tester Name Role Phone Elsewhere, Pcp Primary Care Provider Unavailabl e Source Comments Patient records contain information from all sites at [facility]. For routine questions regarding patient records, call [phone] during business hours, M-F 8:00 AM - 5:00 PM Central Time. Record requests for emergency care only can be directed to [phone] at any time.[facility] Allergies Active Allergy Reactions Criticality Noted [...] daily. 12/05/2020 Active eplerenone (INSPRA) 50 mg tabletIndication s:Ascites Chronic Take 2 tablets (100 mg total) by mouth daily. 180 tablet 3 01/12/2023 Active polyethylene glycol (MIRALAX) 17 gram powder packet Take 1 packet (17 g total) by mouth daily. Dissolve each 17 g dose in 240 mLs (8 ounces) of beverage. 20 packet 08/29/2023 Active sennosides-docus ate sodium (SENOKOT-S) 8.6-50 mg per tablet Take 2 tablets by mouth 2 (two) times a day. 30 tablet 08/28/2023 Active metroNIDAZOLE (FLAGYL) 500 mg tabletIndication s:Blood stream infection Take 1 tablet (500 mg total) by mouth 3 (three) times a day for 11 days Indications: Blood stream infection. 33 tablet 08/28/2023 4 Discontinued levoFLOXacin (LEVAQUIN) 750 mg tablet Take 1 tablet (750 mg total) by mouth every morning before breakfast for 10 days. 10 tablet 08/29/2023 4 Discontinued oxyCODONE (ROXICODONE) 5 mg immediate release tabletIndication s:Acute Pain Take 1 tablet (5 mg total) by mouth every 4 (four) hours as needed for pain for up to 3 days Indication: Acute Pain. 18 tablet 09/05/2023 4 Active Problems Problem Noted Date Diagnosed Date [...] Encounters Date Type Department Care Team Description 09/17/2023 10:30 AM CDT Office Visit [facility] in [place], [place] [address] [place] [address] Elen Gomes M.D., Ph.D. Chronic Liver Disease (Primary Dx) 09/09/2023 10:39 PM CDT - 09/10/2023 12:00 PM CDT Hospital Encounter [facility], Tenth Floor [address] [place] [address] Elias Stuart M.D. Keny Benz M.D. Colitis (Primary Dx) Discharge Disposition: Home or Self Care 09/04/2023 1:00 PM CDT Anesthesia Event [facility] [place] [address] [place] [phone] Abner Cohen M.D. 09/04/2023 12:33 PM CDT - 09/04/2023 3:32 PM CDT Surgery R[facility] OR [address] [place] [phone] Elen Gomes M.D., Ph.D. REPAIR HERNIA UMBILICAL WITHOUT MESH. 09/04/2023 8:05 AM CDT - 09/05/2023 12:54 PM CDT Hospital Encounter [facility], Tenth Floor [address] [place] [address] Elen Gomes M.D., Ph.D. Discharge Disposition: Home or Self Care 09/03/2023 12:08 PM CDT - 09/03/2023 11:59 PM CDT Hospital Encounter Department of Radiology, [facility], in [place], [place] [address] [place] [phone] Elen Gomes M.D., Ph.D. Hydrocele Discharge Disposition: Home or Self Care 09/03/2023 11:00 AM CDT [facility] [place] [place] [address] [place] [phone] Elen Gomes M.D., Ph.D. Chronic Liver Disease (Primary Dx) 09/01/2023 Orders Only [facility] in [place], [place] [address] [place] [phone] Elen Gomes M.D., Ph.D. Hydrocele (Primary Dx) 08/28/2023 Remote Monitoring Remote Patient Monitoring [place] [address] [address] [place] [address] Juddparker Briana Kimberly 08/27/2023 2:05 PM CDT Ancillary Procedure Department of Nursing 08/27/2023 Orders Only Division of Gastroenterology in [place], [place] [address] [place] [phone] Fabiola Reyes M.D. Gastro-Esophageal Reflux Disease With Esophagitis Without Bleeding (Primary Dx); Secondary Esophageal Varices Without Bleeding (HCC); Hypertension Portal (HCC); Stricture Esophagus 08/25/2023 8:09 AM CDT Anesthesia Event Division of Gastroenterology in [place], [place] [address] [place] [phone] Ken Franks APRN, [employer] 08/25/2023 7:30 AM CDT Ancillary Procedure Department of Gastroenterology 08/24/2023 10:17 PM CDT - 08/28/2023 1:11 PM CDT Hospital Encounter [facility] Sixth Floor [address] [place] [phone] Yao Yoon M.D. Laack, Torrey A, M.D. Roya Aldridge M.D. Jovani Salomon M.D. Gypsy Lu M.D. Amol White M.D. Xin Rai M.B.BMarcusS. Pneumonia (Primary Dx); Food In Esophagus Causing Other Injury Initial; Acidosis Lactic Discharge Disposition: Home or Self Care 08/12/2023 1:30 PM CDT Comprehensive Visit [facility] Transplantation and Clinical Regeneration in [place], [place] [address] [place] [phone] Elen Gomes M.D., Ph.D. Hernia Inguinal Bilateral (Primary Dx); Hernia Inguinal 08/12/2023 11:33 AM CDT - 08/12/2023 11:59 PM CDT Hospital Encounter Department of Laboratory Medicine and Pathology, [facility] in [place], [place] [address] [place] [phone] Marv Myrick M.D., M.P.H. Alcoholic Cirrhosis Of Liver With Ascites (HCC) Discharge Disposition: Home or Self Care 08/12/2023 10:14 AM CDT - 08/12/2023 11:32 AM CDT Hospital Encounter Department of Radiology, [place], [place] [address] [place] [phone] Whitney Feliciano P.A.-C., P.A. 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 Hepatitis Autoimmune (HCC); Cirrhosis Nonalcoholic (HCC); Ascites Chronic 07/13/2023 Orders Only Division of Gastroenterology in [place], [place] [address] [place] [address] Marv Myrick M.D., M.P.H. Hernia Inguinal (Primary Dx); Alcoholic Cirrhosis Of Liver With Ascites (HCC) 07/10/2023 1:56 PM CDT - 07/10/2023 3:28 PM CDT Hospital Encounter Department of Radiology, [facility], in [place], [place] [address] [place] [address] Marv Myrick M.D., M.P.H. Hepatitis Autoimmune (HCC); Cirrhosis Nonalcoholic (HCC); Ascites Chronic Discharge Disposition: Home or Self Care 07/07/2023 Clinical Communication Division of Gastroenterology in [place], [place] [address] [place] [address] Marv Myrick M.D., M.P.H. Hepatobiliary; Order Request from Last 3 Months Immunizations Name Administration Dates Next Due Influenza Split 12/22/2007 Family History Medical History Relation Name Comments Arthritis Father fernanda rodriguez no Diabetes Father fernanda rodriguez no Rheum arthritis Father fernanda rodriguez no Stroke Father fernanda rodriguez no Coronary artery disease Mother frankie rodriguez By pass surgery Hypertension Mother frankie rodriguez no Relation Name Status Comments Father fernanda rodriguez Mother frankie rodriguez Social History Tobacco Use Types Packs/Day Years Used Date Smoking Tobacco: Never Smokeless Tobacco: Never Alcohol Use Standard Drinks/Week Comments Not Currently 0 (1 standard drink = 0.6 oz pur e alcohol) Don? t drink [facility] Utilities Answer Date Recorded In the past 12 months has e [employer], gas, oil, or water [email or web address] threatened to shut off services in your [...] How often do you attend chur or caodaism services? More than 4 times per year 04/27/2022 Do you belong to any clubs o r organizations such as evangelical groups, unions, fraternal or athletic groups, or [...] and heating? Not hard at all 04/27/2022 [facility] [place] of Occupat ional Health - Occupational Stress [...] situation today? I have a [facility] place to live 09/10/2023 Education Answer Date Recorded What is the highest level of school you have completed or the highest degree you have received? Bachelor's degree (e.g., BA, AB, BS) 11/11/2020 Sex and Gender Information Value Date Recorded Sex Assigned at Male 02/12/2021 6:18 PM TIRE DEBEADER Gender Identity Male 11/11/2020 11:30 AM CDT [...] Department Care Team (Latest Contact Info) Description 10/16/2023 11:00 AM CDT Appointment Division of Gastroenterology in [place], [place] [address] [place] [address] Marv Myrick M.D., M.P.H. [address] [place] [phone] Discharge Disposition: Home or Self Care 11/10/2023 8:00 AM CDT Appointment Department of Laboratory Medicine and Pathology, [facility] in [place], [place] [address] [place] [phone] Marv Myrick M.D., M.P.H. [address] [place] [phone] 11/10/2023 3:00 PM CDT Office Visit Division of Gastroenterology in [place], [place] [address] [place] [phone] Marv Myrick M.D., M.P.H. [address] [place] [phone] Health Maintenance Due Date Last Done Comments [...] or Tdap) 09/01/2021 09/02/2011, 12/01/2007 COVID-19 Vaccine (2022-2 4 season) 2022 09/18/2021, 03/20/2021, 06/22/2020, Additional history exists Depression Screening (Annual PHQ-2) 03/23/2023 Influenza Vaccine (#1) 2023 , 12/24/2020, 01/18/2020, Additional history exists Hemoglobin A1C 03/05/2024 09/04/2023, 04/24, 11/14/2019, Additional [...] 12/20/1991, 11/22/1991 Pneumococcal vaccine (65+ years) Completed 09/30/19 15, 09/28/2013 Fall Risk Screen (Annual) Completed 09/04/2023 Medical Devices Implanted Type Area Assistant Center Manager Device Identifier Shelf Expiration Date Model / Serial / Lot Clp Rsp [facility] Endo 235 - [id number] Implanted:Qty: 1 on 02/12/2021 by Markie March M.D. at [facility] Hardware e.g. pins/screws /rods [employer] [id number] 09/01/2023 [id number] / [id number] Description:Implanted in duo denum-polypectomy site. Clp Rsp [facility] Endo 235 - [id number] Implanted:Qty: 1 on 02/12/2021 by Markie March M.D. at [facility] Hardware e.g. pins/screws /rods [employer] [id number] 09/01/2023 [id number] / / [id number] Description:Implanted in duo denum at polypectomy site. Hip Implant Hip Implant Hip Description:Right hip replac ement Lnr X3 Mary Kate 40 - [id number] Implanted:Qty: 1 on 05/13/2023 by Pete Rojas M.D. at [facility] Hip Implant Left: Hip Marta 02/15/2028 723-00-4 0E / / [id number] Shll Acet Trd Chl 52e - [id number] Implanted:Qty: 1 on 05/13/2023 by Pete Rojas M.D. at [facility] Hip Implant Left: Hip [place] 03/02/2028 702-04-5 2E / / [id number] A Kn Stm Blx -2.5 - [id number] Implanted:Qty: 1 on 05/13/2023 by Pete Rojas M.D. at [facility] Hip Implant Left: Hip Marta 03/16/2028 6519-T-0 25 / / [id number] Fem Hd Blx +0x40 - [id number] Implanted:Qty: 1 on 05/13/2023 by Pete Rojas M.D. at [facility] Hip Implant Left: Hip [place] 02/16/2028 6519-1-0 40 / / [id number] Hip Stm Ins Hofst Sz8 61r991 - [id number] Implanted:Qty: 1 on 05/13/2023 by Pete Rojas M.D. at [facility] Hip Implant Left: Hip Marta 01/07/2026 7000-660 8 / / [id number] Shoulder Implant Shoulder Implant Shoulder Description:Right shoulder [...] PANEL, S Routine 05/12/2022 8 :33 AM TIRE DEBEADER OPHTHALMOLOGY IMAGE EXAM Routine 01/21/2016 12:00 AM CDT from Last 3 Months or Most Recently Relevant to Health Maintenance Results * (ABNORMAL) Lactate (09/10/2023 4:10 AM CDT) Only the most recent of6 resultswithin the time period is included. Pathologist [facility] Lactate, P 3.0(H) 0.5 - 2.2 mmol/L 09/10/2023 4:29 AM CDT [facility] Blood 09/10/2023 4:10 AM CDT 09/10/2023 4:15 AM CDT Quentin Saunders M.D. LAB BLOOD NON ADD-ON [facility] [address] [place] [address], [facility] [address] [place] [address] * Influenza A/B, SARS CoV-2, PCR, Rapid Symptomatic (09/10/2023 1:46 AM CDT) Pathologist [facility] Influenza A, PCR, Rapid, V Negative [...] at the following links: For Healthcare Providers: https://www.fda.gov/media/596124/download For Patients: https://www.fda.gov/media/949440/download Infl A/B, SARS CoV-2, PCR, Source Swab, Nasopharynx 09/10/2023 1:52 AM CDT [facility] Swab (Nasopharynx) 09/10/2023 1:46 AM CDT 09/10/2023 1:52 AM CDT Quentin Saunders M.D. LAB MICROBIOLOGY - G ENERAL ORDERABLES Performing Organization Address City/[facility]/ZIP Co de Phone Number [facility] [address] [place] [address] * (ABNORMAL) Lactate for Sepsis with Reflex, POCT (09/10/2023 1:13 AM CDT) Only the most recent of2 resultswithin the time period is included. Pathologist [facility] Lactate, POCT 3.01(H) 0.50 - 2.20 mmol/L 09/10/2023 1:22 AM CDT PCLX Blood (Blood, Venous) 09/10/2023 1:13 AM CDT 09/10/2023 1:13 AM CDT Quentin Saunders M.D. LAB POCT ORDERABLES - DEVICE Performing Organization Address [facility]/ZIP Co de Phone Number POC [facility] [address] [place] [address], [facility] P[facility] POC [address] [place] [address] * CT Chest Angiogram and Pulmonary Arteries [...] fibrotic interstitial lung disease. Quentin Saunders M.D. [facility] CT PROCEDURES * Bacteria / Neda Culture, Blood # 2 (09/09/2023 11:47 PM CDT) Only the most recent of6 resultswithin the time period is included. [facility] Bacteria/Taylor da Culture, Blood No growth after 5 days of incubation. 09/15/2023 1:02 AM CDT DTL Blood (Blood, Peripheral Draw) 09/09/2023 11:47 PM CDT 09/09/2023 11:56 PM CDT Comment:Specimen Source Site : Blood Narrative [facility] - 09/15/2023 1:02 AM CDT Received Bactec Peds bottle Quentin Saunders M.D. LAB MICROBIOLOGY - G ENERAL ORDERABLES Performing Organization Address City/[facility]/ZIP Co de Phone Number [facility] [address] [place] [address], [facility] [address] [place] [address] * (ABNORMAL) Lactate, B (09/09/2023 11:01 PM CDT) [facility] Lactate, B 5.1(H) 0.5 - 2.2 mmol/L 09/09/2023 11:07 PM CDT [facility] Blood (Blood, Venous) 09/09/2023 11:01 PM CDT 09/09/2023 11:05 PM CDT Quentin Saunders M.D. LAB BLOOD NON ADD-ON [facility] [address] [place] [address], [facility] [address] [place] [address] * (ABNORMAL) Hepatic Function Panel (09/09/2023 11:01 PM CDT) Only the most recent of4 resultswithin the time period is included. [facility] Bilirubin, Total, S 1.1 0.0 - 1.2 [...] CDT Quentin Saunders M.D. LAB BLOOD ADD-ON [facility] [address] [place] [address], [facility] [address] [place] [address] * (ABNORMAL) CBC with Differential, Blood (09/09/2023 [...] CDT Quentin Saunders M.D. LAB BLOOD ADD-ON [facility] [address] [place] [address], [facility] ST[facility] [address] [place] [address] [facility] [address] [place] [address] * Lipase (09/09/2023 11:01 PM CDT) Lipase, S 45 13 - 60 U/L 09/10/2023 12:17 AM CDT DTL Blood (Blood, Venous) 09/09/2023 11:01 PM CDT 09/09/2023 11:24 PM CDT Quentin Saunders M.D. LAB BLOOD ADD-ON [facility] [address] [place] [address], [facility] DTL [facility] [address] [place] [address] * (ABNORMAL) Basic Metabolic Panel (09/09/2023 11:01 [...] CDT Quentin Saunders M.D. LAB BLOOD ADD-ON [facility] [address] [place] [address], [facility] ST[facility] [address] [place] [address] * (ABNORMAL) Prothrombin Time (PT) (09/05/2023 9:36 AM CDT) Only the most recent of2 resultswithin the time period is included. Pathologist [facility] Prothrombin Time, P 20.7(H) 9.4 - 12.5 sec 09/05/2023 10:30 AM CDT DTL INR 1.9 0.9 - 1.1 09/05/2023 10:30 AM CDT DTL Comment: ----ADDITIONAL INFORMATION---- Standard intensity warfarin therapeutic range: 2.0 to 3.0 ?? High intensity warfarin therapeutic range: 2.5 to 3.5 Blood (Blood, Venous) 09/05/2023 9:36 AM CDT 09/05/2023 9:51 AM CDT Ti Delvalle M.D., M.S. LAB BLOOD ADD-ON [address] [address], [facility] [place] [address] * (ABNORMAL) CBC without Differential (09/05/2023 6:50 AM CDT) Only the most recent of2 resultswithin the time period is included. Pathologist [facility] Hemoglobin 9.7(L) 13.2 - 16.6 g/dL [...] Ph.D. LAB BLOOD ADD-ON Performing Organization Address City/[facility]/ZIP Co de Phone Number [facility] [address] [place] [address], [facility] DTL [facility] [address] [place] [address] * Glucose, POCT (09/04/2023 3:30 PM CDT) Only the most recent of15 resultswithin the time period is included. Glucose, POCT, B 129 70 - 140 mg/dL 09/04/2023 5:25 PM CDT PCDE Site Capillary 09/04/2023 5:25 PM CDT PCDE Blood 09/04/2023 3:30 PM CDT 09/04/2023 5:25 PM CDT Unknown Provider LAB POCT ORDERABLES- MANUAL Performing Organization Address [facility] Co de Phone Number POC [facility] [address] [place] [address], [facility] PCDE [facility] POC [address] [place] [address] * LDA ANE ENDOTRACHEAL AIRWAY (09/04/2023 1:15 [...] ETT location: oral VL device: glide scope Emmett scope blade size: 4 Tube size: 7.5 [...] Leda Brandt M.D., Ph.D. LAB BLOOD ADD-ON [facility] [address] [place] [address], [facility] DTL [facility] [address] [place] [address] * US Scrotum with Doppler (09/03/2023 1:59 [...] has overall improved. Elen Gomes M.D., Ph.D. [facility] US PROCEDU RES * Arm, Right-Nursing Image [...] RAD IMAGI NG PROCEDURES IIMS NA * Magnesium (08/27/2023 6:07 AM CDT) Only the most recent of2 resultswithin the time period is included. Magnesium, S 1.9 1.7 - 2.3 mg/dL 08/27/2023 6:51 AM CDT DTL Blood (Blood, Venous) 08/27/2023 6:07 AM CDT 08/27/2023 6:40 AM CDT Barbara Marin M.D. LAB BLOOD ADD-ON Performing Organization Address City/[facility]/ZIP Co de Phone Number [facility] [address] [place] [address], [facility] DTL [facility] [address] [place] [address] * CT Chest with IV Contrast (08/26/2023 [...] the upper abdomen. Mild height loss of X0rjgeiwmwj body is most likely chronic. No aggressive [...] included. Ventricular Rate ECG/Min 57 BPM MUSE NV Interval 126 ms MUSE QRSD Interval 102 ms MUSE QT Interval 472 ms MUSE QTC Interval 459 ms MUSE P [place] 19 degrees MUSE R [place] -4 degrees MUSE T Wave [place] 17 degrees MUSE 08/26/2023 10:3 9 AM [...] Kirk Rm M.D. LAB BLOOD NON ADD-ON [facility] [address] [place] [address], [facility] [address] [place] [address] * (ABNORMAL) Renal Function Panel (08/26/2023 4:38 AM CDT) Pathologist [facility] Potassium, S 3.8 3.6 - 5.2 mmol/L [...] CDT Kenneth Mcnally M.D. LAB BLOOD ADD-ON [facility] [address] [place] [address], [facility] [address] [place] [address] * (ABNORMAL) Iron and Total Iron-Binding Capacity (08/26/2023 4:38 AM CDT) [facility] Signature Iron 48(L) 50 - 150 mcg/dL 08/26/2023 5:50 AM CDT DTL Total Iron Binding Capacity 211(L) 250 - 400 mcg/dL 08/26/2023 5:50 AM CDT DTL Percent Saturation 23 14 - 50 % 08/26/2023 5:50 AM CDT DTL Blood (Blood, Venous) 08/26/2023 4:38 AM CDT 08/26/2023 5:17 AM CDT Kenneth Mcnally M.D. LAB BLOOD ADD-ON [facility] [address] [place] [address], [facility] [address] [place] [address] * Ferritin (08/26/2023 4:38 AM CDT) Ferritin, S 71 31 - 409 mcg/L 08/26/2023 5:50 AM CDT DTL Blood (Blood, Venous) 08/26/2023 4:38 AM CDT 08/26/2023 5:17 AM CDT Kenneth Mcnally M.D. LAB BLOOD ADD-ON Performing Organization Address [facility] Co de Phone Number [facility] [address] [place] [address], [facility] [address] [place] [address] * Patient Status (08/25/2023 9:12 PM CDT) FIO2 room air 0.21=AIR 08/25/2023 9:15 PM CDT ST[facility] Spont. breaths/min 21 08/25/2023 9:15 PM CDT [facility] Blood 08/25/2023 9:12 PM CDT 08/25/2023 9:15 PM CDT Kenneth Mcnally M.D. LAB BLOOD NON ADD-ON Performing Organization Address City/[facility]/ZIP Co de Phone Number [facility] [address] [place] [address], [facility] ST[facility] [address] [place] [address] * (ABNORMAL) Blood Gas with Coox, Venous [...] Kenneth Mcnally M.D. LAB BLOOD NON ADD-ON [facility] [address] [place] [address], [place] ST[facility] [address] [place] [address] * Critical Care (08/25/2023 5:05 PM CDT) [...] M.S.N. LAB POCT ORDERABLES - DEVICE POC [facility] [address] [place] [address], [facility] POC [address] [place] [address] * (ABNORMAL) Dipstick, POCT, Urine (08/25/2023 3:35 PM CDT) Glucose, POCT, U 500(A) Negative mg/dL 08/25/2023 3:36 PM CDT PCED Ketone, POCT, U Negative Negative mg/dL 08/25/2023 3:36 PM CDT PCED Specific [place], POCT, U 1.020 1.005 - 1.030 08/25/2023 [...] Hospital/ZIP Co de Phone Number POC [facility] [address] [place] [address], [facility] PC[facility] POC [address] [place] [phone] * Osmolality, Urine (08/25/2023 3:18 PM CDT) Osmolality, U 597 150 - 1150 mOsm/kg 08/25/2023 3:58 PM CDT DTL Urine 08/25/2023 3:18 PM CDT 08/25/2023 3:35 PM CDT Zachary Romano M.D. LAB URINE ORDERABLES [facility] [address] [place] [address], [facility] DTL [facility] [address] [place] [address] * (ABNORMAL) Dipstick, Urine (08/25/2023 3:18 PM [...] City/[facility]/ZIP Co de Phone Number [facility] [address] [place], [place] [address] [address] [place] [address] * pH, Random, Urine (08/25/2023 3:18 PM CDT) pH, Random, U 5.7 4.5 - 8.0 08/25/2023 3:58 PM CDT DTL Urine 08/25/2023 3:18 PM CDT 08/25/2023 3:35 PM CDT Zachary Romano M.D. LAB URINE ORDERABLES [facility] [address] [place] [address], [facility] [address] [place] [address] * (ABNORMAL) Microscopic Manual (08/25/2023 3:18 PM [...] City/[facility]/ZIP Co de Phone Number [facility] [address] [place] [address], [facility] [address] [place] [address] * Bacterial Culture, Aerobic + Susceptibility, Urine (08/25/2023 3:18 PM CDT) Urine Culture No growth after 1 day of incubation. 08/26/2023 12:32 PM CDT DTL Urine (Urine, Straight Catheter) 08/25/2023 3:18 PM CDT 08/25/2023 5:52 PM CDT Comment:Specimen Source Site : Urine Zachary Romano M.D. LAB MICROBIOLOGY - G ENERAL ORDERABLES Performing Organization Address City/[facility]/ZIP Co de Phone Number [facility] [address] [place] [address], [facility] [facility] [address] [place] [address] * Urinalysis, with Microscopic: Urine, Straight Catheter [...] CDT Zachary Romano M.D. LAB URINE ORDERABLES [facility] [address] [place] [address], [facility] [address] [place] [address] * DX Chest AP or PA and [...] anchor right humeral head. Vianney Escobar APRN, NapoleonN.P., D.N.P., M.S.N. IMG DIAGNOSTIC IMAGING PROCEDURES * [...] M.S.N. LAB POCT ORDERABLES - DEVICE POC [facility] [address] [place] [address], [facility] PCL[facility] [place] POC [address] [place] [address] [facility] POC [address] [place] [address] * (ABNORMAL) Cystatin C with Estimated GFR (08/25/2023 1:40 PM CDT) Pathologist [facility] eGFR by Cystatin C 50(L) >60 mL/min/BSA [...] CDT Gypsy Lu M.D. LAB BLOOD ADD-ON [facility] [address] [place] [address], [place] [facility] [address] [place] [address] * LDA ANE ENDOTRACHEAL AIRWAY (08/25/2023 8:14 [...] ETT location: oral VL device: glide scope Emmett scope blade size: 4 Tube size: 7 [...] AM CDT) 08/25/2023 7:26 AM CDT [facility]/25/[facility] 10:03 AM CDT Post-op [...] repeated passages of the scope. Narrative [facility] [place] - 08/25/2023 10:03 AM CDT Navjot 6 [...] oxygen saturations were monitored continuously. The ? [id number] Upper Endoscope was introduced under direct vision [...] GI PROCEDURE ORDER NOEMÍ NICOLAS PROVATION NA * DX Hip to Ankle [...] Ultrasound-guided paracentesis. EP Marv Myrick M.D., M.P.H. [facility] US P ROCEDURES * Bacterial Culture, Aerobic + Susceptibility (07/10/2023 2:53 PM CDT) Bacterial Culture, Aerobic + Susc No growth after 5 days of incubation. 07/15/2023 10:53 AM CDT DTL Fluid (Peritoneal Fluid) 07/10/2023 2:53 PM CDT Narrative [facility] - 07/15/2023 10:53 AM CDT Bacterial Culture: Received Bactec aerobic and Bactec anaerobic bottles Marv Myrick M.D., M.P.H. LAB MICR OBIOLOGY - GENERAL ORDERABLES [facility] [address] [place] [address], [place] DTL [facility] [address] [place] [address] * Cell Count and Differential, Body Fluid [...] This test has been modified from the or director's instructions. Its performance characteristics were determined by [facility] in a manner consistent with CLIA [...] Are: See Comment 07/11/2023 8:12 AM CDT [facility] Comment:Mesothelial cells Comment See Comment 07/11/2023 8:12 AM CDT PM Comment:No blasts or maligna nt cells seen. Reviewed by: Pipo 07/11/2023 8:12 AM CDT PM Fluid (Peritoneal Fluid) 07/10/2023 2:53 PM CDT Marv Myrick M.D., M.P.H. LAB BODY FLUIDS AND STOOLS ORDERABLES [facility] [address] [place] [address], [facility] [address] [place] [address] * OPHTHALMOLOGY IMAGE EXAM (01/21/2016 12:00 AM CDT) Anatomical Region Laterality Modality Other 01/21/2016 Addenda Addendum by ProviderLevar M.D. on 01/21/2016 12:00 AM CDT OPH^^^MCR Eyes Visual Tay-Manual 01/21/2016 00:00:00 Historical Provider IMG NON RAD IMAGING PROCEDURES from Last 3 Months or Most Recently Relevant to Health Maintenance Advance Directives For more information, please contact: [phone] * Full Code (Latest Code Status on [...] Answer Comments Full Code: Discussed Care Teams Spark Tester Relationship Specialty Start Date End Date Elsewhere, Pcp PCP - General Internal Medicine 08/19/21
--- OUTSIDE RECORDS SUMMARY | 2023-09-26 12:23 | XMS_ITS | Referral Summary ---
Author Organization [facility] Address [address] [place] [address] Care Team Providers Care Sausage Stringer Name Role Phone Elsewhere, Pcp Primary Care Provider Unavailabl e Source Comments Patient records contain information from all sites at [facility]. For routine questions regarding patient records, call [phone] during business hours, M-F 8:00 AM - 5:00 PM Central Time. Record requests for emergency care only can be directed to [phone] at any time.[facility] Encounters Date Type Department Care Team Description 09/17/2023 10:30 AM CDT Office Visit [facility] in [place], [place] [address] [place] [address] Elen Gomes M.D., Ph.D. Chronic Liver Disease (Primary Dx) 09/09/2023 10:39 PM CDT - 09/10/2023 12:00 PM CDT Hospital Encounter [facility], [facility], [facility], Tenth Floor [address] [place] [address] Elias Stuart M.D. Huebert, Robert C, M.D. Colitis (Primary Dx) Discharge Disposition: Home or Self Care 09/04/2023 8:05 AM CDT - 09/05/2023 12:54 PM CDT Hospital Encounter [facility], [facility], Tenth Floor [address] [place] [address] Elen Gomes M.D., Ph.D. Discharge Disposition: Home or Self Care 09/04/2023 1:00 PM CDT Anesthesia Event RST RO MAIN OR [address] [place] [address] Abner Cohen M.D. 09/04/2023 12:33 PM CDT - 09/04/2023 3:32 PM CDT Surgery RST [facility] OR [address] [place] [address] Elen Gomes M.D., Ph.D. REPAIR HERNIA UMBILICAL WITHOUT MESH. 09/03/2023 12:08 PM CDT - 09/03/2023 11:59 PM CDT Hospital Encounter Department of Radiology, [facility], in [place], [place] [address] [place] [address] Elen Gomes M.D., Ph.D. Hydrocele Discharge Disposition: Home or Self Care 09/03/2023 11:00 AM CDT [facility] [place], [place] [address] [place] [address] Elen Gomes M.D., Ph.D. Chronic Liver Disease (Primary Dx) 09/01/2023 Orders Only [facility] [place], [place] [address] [place] [address] Elen Gomes M.D., Ph.D. Hydrocele (Primary Dx) 08/28/2023 Remote Monitoring Remote Patient Monitoring [facility] [address] [place] [address] Briana Mayo 08/24/2023 10:17 PM CDT - 08/28/2023 1:11 PM CDT Hospital Encounter [facility], [facility], Sixth Floor [address] [place] [address] Yao Yoon M.D. Zachary Romano M.D. Roya Aldridge M.D. Jovani Salomon M.D. Gypsy Lu M.D. Amol White M.D. Hoskote, Sumedh S, M.B.B.S. Pneumonia (Primary Dx); Food In Esophagus Causing Other Injury Initial; Acidosis Lactic Discharge Disposition: Home or Self Care 08/27/2023 2:05 PM CDT Ancillary Procedure Department of Nursing 08/27/2023 Orders Only Division of Gastroenterology in [place], [place] [address] [place] [phone] Fabiola Reyes M.D. Gastro-Esophageal Reflux Disease With Esophagitis Without Bleeding (Primary Dx); Secondary Esophageal Varices Without Bleeding (HCC); Hypertension Portal (HCC); Stricture Esophagus 08/25/2023 7:30 AM CDT Ancillary Procedure Department of Gastroenterology 08/25/2023 8:09 AM CDT Anesthesia Event Division of Gastroenterology in [place], [place] [address] [place] [phone] Ken Franks, BONE DRIER, ELECTRICAL INSTRUMENT REPAIRER 08/12/2023 11:33 AM CDT - 08/12/2023 11:59 PM CDT Hospital Encounter Department of Laboratory Medicine and Pathology, [place], [place] [address] [place] [phone] Marv Myrick M.D., M.P.H. Alcoholic Cirrhosis Of Liver With Ascites (HCC) Discharge Disposition: Home or Self Care 08/12/2023 1:30 PM CDT [facility] in [place], [place] [address] [place] [phone] Elen Gomes M.D., Ph.D. Hernia Inguinal Bilateral (Primary Dx); Hernia Inguinal 08/12/2023 10:14 AM CDT - 08/12/2023 11:32 AM CDT Hospital Encounter Department of Radiology, [facility] in [place], [place] [address] [place] [address] Whitney Feliciano P.A.-C., P.A. 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 Hernia Inguinal (Primary Dx); Alcoholic Cirrhosis Of Liver With Ascites (HCC) 07/13/2023 12:30 PM CDT Virtual Visit Division of Gastroenterology in [place], [place] [address] [place] [phone] Marv Myrick M.D., M.P.H. Hepatitis Autoimmune (HCC); Cirrhosis Nonalcoholic (HCC); Ascites Chronic 07/10/2023 1:56 PM CDT - 07/10/2023 3:28 PM CDT Hospital Encounter Department of Radiology, [facility] in [place], [place] [address] [place] [phone] Marv Myrick M.D., M.P.H. Hepatitis Autoimmune (HCC); Cirrhosis Nonalcoholic (HCC); Ascites Chronic Discharge Disposition: Home or Self Care 07/07/2023 Clinical Communication Division of Gastroenterology in [place], [place] [address] [place] [phone] Marv Myrick M.D., M.P.H. Hepatobiliary; Order Request [...] days Indication: Acute Pain. 18 tablet 09/05/2023 Active Problems Problem Noted Date Diagnosed Date [...] oz pur e alcohol) Don? t drink [facility] Utilities Answer Date Recorded In the past 12 months has [facility] [employer], gas, oil, or water [employer] threatened to shut off services in your [...] often do you attend chur ch or christianity services? More than 4 times per year 04/27/2022 Do you belong to any clubs o r organizations such as amish groups, unions, fraternal or athletic groups, or [...] and heating? Not hard at all 04/27/2022 [facility] of Occupat ional Health - Occupational [...] your living situation today? I have a [facility] to live 09/10/2023 Education Answer Date Recorded What is the highest level of school you have completed or the highest degree you have received? Bachelor's degree (e.g., BA, AB, BS) 11/11/2020 Sex and Gender Information Value Date Recorded Sex Assigned at Male 02/12/2021 6:18 PM [employer]PER[employer]ORY [employer]OLLER Gender Identity Male 11/11/2020 11:30 AM CDT [...] AM CDT Appointment Division of Gastroenterology in [address] [address] Marv Myrick M.D., M.P.H. [address] [place] [phone] Discharge Disposition: Home or Self Care 11/10/2023 8:00 AM CDT Appointment Department of Laboratory Medicine and Pathology, [facility] in [place], [place] [address] [place] [phone] Marv Myrick M.D., M.P.H. [address] [place] [phone] 11/10/2023 3:00 PM CDT Office Visit Division of Gastroenterology in [place], [place] [address] [place] [phone] Marv Myrick M.D., M.P.H. [address] [place] [phone] Medical Devices Implanted Type Area Electrical Engineering Professor Device Identifier Shelf Expiration Date Model / Serial / Lot [facility] Endo 235 - [id number] Implanted:Qty: 1 on 02/12/2021 by Markie March M.D. at [facility] Hardware e.g. pins/screws /rods [employer] [id number] 09/01/2023 [id number] / / [id number] Description:Implanted in duo denum-polypectomy site. [facility] - [id number] Implanted:Qty: 1 on 02/12/2021 by Markie March M.D. at [facility] Hardware e.g. pins/screws /rods [employer] [id number] 09/01/2023 [id number] / / [id number] Description:Implanted in duo denum at polypectomy site. Hip Implant Hip Implant Hip Description:Right hip replac ement Lnr X3 Mary Kate 40 - [id number] Implanted:Qty: 1 on 05/13/2023 by Pete Rojas M.D. at [facility] Hip Implant Left: Hip Marta 02/15/2028 723-00-4 0E / / [id number] Shll Acet Trd Chl 52e - [id number] Implanted:Qty: 1 on 05/13/2023 by Pete Rojas M.D. at [facility] Hip Implant Left: Hip Vilas 03/02/2028 702-04-5 2E / / [id number] A Kn Stm Blx -2.5 - [id number] Implanted:Qty: 1 on 05/13/2023 by Pete Rojas M.D. at [facility] Hip Implant Left: Hip Marta 03/16/2028 6519-T-0 25 / / [id number] Fem Hd Blx +0x40 - [id number] Implanted:Qty: 1 on 05/13/2023 by Pete Rojas M.D. at [facility] Hip Implant Left: Hip Vilas 02/16/2028 6519-1-0 40 / / [id number] Hip Stm Ins Hofst Sz8 05i613 - [id number] Implanted:Qty: 1 on 05/13/2023 by Pete Rojas M.D. at [facility] Hip Implant Left: Hip Vilas 01/07/2026 7000-660 8 / / [id number] Shoulder Implant Shoulder Implant Shoulder Description:Right shoulder [...] PANEL, S Routine 05/12/2022 8 :33 AM SUPERVISORY [employer] INTERCEPT CONTROLLER OPHTHALMOLOGY IMAGE EXAM Routine 01/21/2016 12:00 AM [...] Quentin Saunders M.D. LAB BLOOD NON ADD-ON [facility] [address] [place] [address], [facility] [address] [place] [address] * Influenza A/B, SARS CoV-2, PCR, Rapid Symptomatic (09/10/2023 1:46 AM CDT) Pathologist [facility] Influenza A, PCR, Rapid, V Negative Negative [...] at the following links: For Healthcare Providers: https://www.fda.gov/media/012696/download For Patients: https://www.fda.gov/media/826467/download Infl A/B, SARS CoV-2, PCR, Source Swab, Nasopharynx 09/10/2023 1:52 AM CDT STMA Swab (Nasopharynx) 09/10/2023 1:46 AM CDT 09/10/2023 1:52 AM CDT Quentin Saunders M.D. LAB MICROBIOLOGY - G ENERAL ORDERABLES Performing Organization Address [facility]/ZIP Co de Phone Number [facility] [address] [place] [address], [facility] STMA [facility] [address] [place] [address] * (ABNORMAL) Lactate for Sepsis with Reflex, POCT (09/10/2023 1:13 AM CDT) Only the most recent of2 resultswithin the time period is included. Lactate, POCT 3.01(H) 0.50 - 2.20 mmol/L 09/10/2023 1:22 AM CDT PCLX Blood (Blood, Venous) 09/10/2023 1:13 AM CDT 09/10/2023 1:13 AM CDT Quentin Saunders M.D. LAB POCT ORDERABLES - DEVICE Performing Organization Address [facility] Co de Phone Number POC [facility] [address] [place] [address], [facility] PCLX [facility] POC [address] [place] [address] * CT Chest Angiogram and Pulmonary Arteries [...] fibrotic interstitial lung disease. Quentin Saunders M.D. Danita CT PROCEDURES * CT Abdomen Pelvis with [...] fibrotic interstitial lung disease. Quentin Saunders M.D. [facility]ED[place] * Bacteria / Neda Culture, Blood # 2 (09/09/2023 11:47 PM CDT) Only the most recent of6 resultswithin the time period is included. Bacteria/Taylor da Culture, Blood No growth after 5 days of incubation. 09/15/2023 1:02 AM CDT DTL Blood (Blood, Peripheral Draw) 09/09/2023 11:47 PM CDT 09/09/2023 11:56 PM CDT Comment:Specimen Source Site : Blood Narrative [facility] - 09/15/2023 1:02 AM CDT Received Bactec Peds bottle Quentin Saunders M.D. LAB MICROBIOLOGY - G ENERAL ORDERABLES Performing Organization Address City/[facility]/ZIP Co de Phone Number [address] [address], [facility] [place] [address] * (ABNORMAL) Lactate, B (09/09/2023 11:01 PM CDT) Pathologist [facility] Lactate, B 5.1(H) 0.5 - 2.2 mmol/L 09/09/2023 11:07 PM CDT STMA Blood (Blood, Venous) 09/09/2023 11:01 PM CDT 09/09/2023 11:05 PM CDT Quentin Saunders M.D. LAB BLOOD NON ADD-ON Performing Organization Address City/[facility] Co de Phone Number [address] [address], [facility] STMA [address] [address] * (ABNORMAL) Hepatic Function Panel (09/09/2023 11:01 PM CDT) Only the most recent of4 resultswithin the time period is included. Pathologist [facility] Bilirubin, Total, S 1.1 0.0 - 1.2 [...] CDT Quentin Saunders M.D. LAB BLOOD ADD-ON [facility] [address] [place] [address], [facility] [address] [place] [address] * (ABNORMAL) CBC with Differential, Blood (09/09/2023 [...] M.D. LAB BLOOD ADD-ON Performing Organization Address City/[facility]/ZIP Co de Phone Number [facility] [address] [place], [place] [phone] [place] [address] STMA [facility] [address] [place] [address] [facility] [address] [place] [address] * Lipase (09/09/2023 11:01 PM CDT) Pathologist [facility] Lipase, S 45 13 - 60 U/L 09/10/2023 12:17 AM CDT DTL Blood (Blood, Venous) 09/09/2023 11:01 PM CDT 09/09/2023 11:24 PM CDT Quentin Saunders M.D. LAB BLOOD ADD-ON Performing Organization Address City/[facility]/ZIP Co de Phone Number [facility] [address] [place], [place] [phone] [place] [address] DTL [facility] [address] [place] [address] * (ABNORMAL) Basic Metabolic Panel (09/09/2023 11:01 [...] CDT Quentin Saunders M.D. LAB BLOOD ADD-ON [facility] [address] [place] [address], [facility] [address] [place] [address] * (ABNORMAL) Prothrombin Time (PT) (09/05/2023 9:36 [...] Ti Delvalle M.D., M.S. LAB BLOOD ADD-ON [facility] [address] [place] [address], [facility] DTL [facility] [address] [place] [address] * (ABNORMAL) CBC without Differential (09/05/2023 6:50 [...] Ph.D. LAB BLOOD ADD-ON Performing Organization Address City/[facility]/ZIP Co de Phone Number [facility] [address] [place] [address], [facility] DTL [facility] [address] [place] [address] * Glucose, POCT (09/04/2023 3:30 PM CDT) Only the most recent of15 resultswithin the time period is included. Glucose, POCT, B 129 70 - 140 mg/dL 09/04/2023 5:25 PM CDT PCDE Site Capillary 09/04/2023 5:25 PM CDT PCDE Blood 09/04/2023 3:30 PM CDT 09/04/2023 5:25 PM CDT Unknown Provider LAB POCT ORDERABLES- MANUAL POC [facility] [address] [place] [address], [facility] PCDE [facility] POC [address] [place] [address] * LDA ANE ENDOTRACHEAL AIRWAY (09/04/2023 1:15 [...] ETT location: oral VL device: glide scope [place] scope blade size: 4 Tube size: 7.5 [...] Leda Brandt M.D., Ph.D. LAB BLOOD ADD-ON [facility] [address] [place] [address], [facility] [address] [place] [address] * US Scrotum with Doppler (09/03/2023 1:59 [...] Gomes M.D., Ph.D. IMG US PROCEDU RES * Arm, Right-Nursing Image [...] System IMG NON RAD IMAGI NG PROCEDURES IINM NA * Magnesium (08/27/2023 6:07 AM CDT) Only the most recent of2 resultswithin the time period is included. Magnesium, S 1.9 1.7 - 2.3 mg/dL 08/27/2023 6:51 AM CDT DTL Blood (Blood, Venous) 08/27/2023 6:07 AM CDT 08/27/2023 6:40 AM CDT Barbara Marin M.D. LAB BLOOD ADD-ON [facility] [address] [place] [address], [facility] DTL [facility] [address] [place] [address] * CT Chest with IV Contrast (08/26/2023 [...] the upper abdomen. Mild height loss of [id number] body is most likely chronic. No aggressive [...] included. Ventricular Rate ECG/Min 57 BPM MUSE AK Interval 126 ms MUSE QRSD Interval 102 ms MUSE QT Interval 472 ms MUSE QTC Interval 459 ms MUSE P [place] 19 degrees MUSE R [place] -4 degrees MUSE T Wave [place] 17 degrees MUSE 08/26/2023 10:3 9 AM [...] Kirk Rm M.D. LAB BLOOD NON ADD-ON [facility] [address] [place] [address], [facility] [address] [place] [address] * (ABNORMAL) Renal Function Panel (08/26/2023 4:38 [...] 4:38 AM CDT 08/26/2023 5:17 AM CDT Narrative Authorizing Provider Result Kyle Mcnally M.D. LAB BLOOD ADD-ON [facility] [address] [place] [address], [facility] [address] [place] [address] * (ABNORMAL) Iron and Total Iron-Binding Capacity (08/26/2023 4:38 AM CDT) Iron 48(L) 50 - 150 mcg/dL 08/26/2023 5:50 AM CDT DTL Total Iron Binding Capacity 211(L) 250 - 400 mcg/dL 08/26/2023 5:50 AM CDT DTL Percent Saturation 23 14 - 50 % 08/26/2023 5:50 AM CDT DTL Blood (Blood, Venous) 08/26/2023 4:38 AM CDT 08/26/2023 5:17 AM CDT Narrative Authorizing Provider Result Kyle Mcnally M.D. LAB BLOOD ADD-ON Performing Organization Address City/[facility] Co de Phone Number [facility] [address] [place], [place] [phone] [place] [address] [address] [place] [address] * Ferritin (08/26/2023 4:38 AM CDT) Pathologist [facility] Ferritin, S 71 31 - 409 mcg/L 08/26/2023 5:50 AM CDT DTL Blood (Blood, Venous) 08/26/2023 4:38 AM CDT 08/26/2023 5:17 AM CDT Kenneth Mcnally M.D. LAB BLOOD ADD-ON Performing Organization Address City/[facility] Co de Phone Number [facility] [address] [place], [place] [phone] [place] [address] [address] [place] [address] * Patient Status (08/25/2023 9:12 PM CDT) Pathologist [facility] FIO2 room air 0.21=AIR 08/25/2023 9:15 PM CDT STMA Spont. breaths/min 21 08/25/2023 9:15 PM CDT [facility] Blood 08/25/2023 9:12 PM CDT 08/25/2023 9:15 PM CDT Kenenth Mcnally M.D. LAB BLOOD NON ADD-ON Performing Organization Address City/[facility]/ZIP Co de Phone Number [facility] [address] [place], [place] [address] STMA [facility] [address] [place] [address] * (ABNORMAL) Blood Gas with Coox, Venous (08/25/2023 9:12 PM CDT) [facility] pO2, Venous, B 18 Not applicable mm [...] LAB BLOOD NON ADD-ON Performing Organization Address City/State/[facility] Co de Phone Number [facility] [address] [place] [address], [facility] [address] [place] [address] * Critical Care (08/25/2023 5:05 PM CDT) Narrative Zachary Romano M.D. - 08/25/2023 5:05 PM CDT Zachary Romaon M.D. ? 08/27/2023 10:04 AM Critical Care [...] CDT 08/25/2023 4:08 PM CDT Vianney Escobar APRN C.N.P., D.N.P., M.S.N. LAB POCT ORDERABLES - DEVICE POC [facility] [address] [place] [address], [facility] PCLX [facility] POC [address] [place] [address] * (ABNORMAL) Dipstick, POCT, Urine (08/25/2023 3:35 PM CDT) Glucose, POCT, U 500(A) Negative mg/dL 08/25/2023 3:36 PM CDT PCED Ketone, POCT, U Negative Negative mg/dL 08/25/2023 3:36 PM CDT PCED Specific [place], POCT, U 1.020 1.005 - 1.030 08/25/2023 [...] POCT ORDERABLES - DEVICE Performing Organization Address City/[facility]/ZIP Co de Phone Number POC RST [facility] [address] [place], [place] [phone] [place] [address] PCED [facility] POC [address] [place] [address] * Osmolality, Urine (08/25/2023 3:18 PM CDT) Pathologist [facility] Osmolality, U 597 150 - 1150 mOsm/kg 08/25/2023 3:58 PM CDT DTL Urine 08/25/2023 3:18 PM CDT 08/25/2023 3:35 PM CDT Zachary Romano M.D. LAB URINE ORDERABLES Performing Organization Address City/[facility]/ZIP Co de Phone Number [facility] [address] [place], [place] [address] DTL [facility] [address] [place] [address] * (ABNORMAL) Dipstick, Urine (08/25/2023 3:18 PM [...] M.D. LAB URINE ORDERABLES Performing Organization Address [facility] Co de Phone Number [facility] [address] [place] [address] * pH, Random, Urine (08/25/2023 3:18 PM CDT) pH, Random, U 5.7 4.5 - 8.0 08/25/2023 3:58 PM CDT DTL Urine 08/25/2023 3:18 PM CDT 08/25/2023 3:35 PM CDT Zachary Romano M.D. LAB URINE ORDERABLES Performing Organization Address City/[facility] Co de Phone Number [facility] [address] [place] [address] * (ABNORMAL) Microscopic Manual (08/25/2023 3:18 PM [...] M.D. LAB URINE ORDERABLES Performing Organization Address City/[facility]/ZIP Co de Phone Number [facility] [address] [place] [address], [facility] [address] [place] [address] * Bacterial Culture, Aerobic + Susceptibility, Urine (08/25/2023 3:18 PM CDT) Urine Culture No growth after 1 day of incubation. 08/26/2023 12:32 PM CDT DTL Urine (Urine, Straight Catheter) 08/25/2023 3:18 PM CDT 08/25/2023 5:52 PM CDT Comment:Specimen Source Site : Urine Zachary Romano M.D. LAB MICROBIOLOGY - G ENERAL ORDERABLES Performing Organization Address City/[facility] Co de Phone Number [facility] [address] [place] [address], [facility] [address] [place] [address] * Urinalysis, with Microscopic: Urine, Straight Catheter [...] CDT Zachary Romano M.D. LAB URINE ORDERABLES [facility] [address] [place] [address], [place] [facility] [address] [place] [address] * DX Chest AP or PA and [...] POCT ORDERABLES - DEVICE Performing Organization Address [facility] Co de Phone Number POC [facility] [address] [place] [address], [facility] PCLX [facility] POC [address] [place] [address] PCSM [facility] POC [address] [place] [address] * (ABNORMAL) Cystatin C with Estimated GFR (08/25/2023 1:40 PM CDT) Pathologist [facility] eGFR by Cystatin C 50(L) >60 mL/min/BSA [...] PM CDT 08/26/2023 10:53 AM CDT Gypsy uL M.D. LAB BLOOD ADD-ON Performing Organization Address City/[facility]/ZIP Co de Phone Number [facility] [address] [place] [address], [facility] DTL [facility] [address] [place] [address] * LDA ANE ENDOTRACHEAL AIRWAY (08/25/2023 8:14 [...] ETT location: oral VL device: glide scope [place] scope blade size: 4 Tube size: 7 [...] System IMG NON RAD IMAGI NG PROCEDURES IINM NA * Upper GI Endoscopy (08/25/2023 7:26 AM CDT) 08/25/2023 7:26 AM CDT Impressions [employer] - 08/25/2023 10:03 AM CDT Post-op Diagnoses: [...] facilitate repeated passages of the scope. Narrative [employer] - 08/25/2023 10:03 AM CDT Navjot [...] oxygen saturations were monitored continuously. The ? [id number] Upper Endoscope was introduced under direct vision [...] left mid fibular shaft. Whitney Feliciano P.A.-C., Gamaliel.A. IMG DIAGN OSTIC IMAGING PROCEDURES * DX [...] aspect of the left mid fibular shaft. Hetcor Calvillo P.A.-C. IMG DIAGN OSTIC IMAGING PROCEDURES * US [...] Ultrasound-guided paracentesis. EP Marv Myrick M.D., M.P.H. [facility] P ROCEDURES * Bacterial Culture, Aerobic + Susceptibility (07/10/2023 2:53 PM CDT) Bacterial Culture, Aerobic + Susc No growth after 5 days of incubation. 07/15/2023 10:53 AM CDT DTL Fluid (Peritoneal Fluid) 07/10/2023 2:53 PM CDT Narrative [facility] - 07/15/2023 10:53 AM CDT Bacterial Culture: Received Bactec aerobic and Bactec anaerobic bottles Marv Myrick M.D., M.P.H. LAB MICR OBIOLOGY - GENERAL ORDERABLES [facility] [address] [place] [address], [facility] [address] [place] [address] * Cell Count and Differential, Body Fluid [...] This test has been modified from the tail worker's instructions. Its performance characteristics were determined by [facility] in a manner consistent with CLIA requirements. [...] M.P.H. LAB BODY FLUIDS AND STOOLS ORDERABLES [facility] [address] [place] [address], [facility] [address] [place] [address] * OPHTHALMOLOGY IMAGE EXAM (01/21/2016 12:00 AM CDT) Anatomical Region Laterality Modality Other 01/21/2016 Addenda Addendum by ProviderLevar M.D. on 01/21/2016 12:00 AM CDT OPH^^^MCR Eyes Visual Tay-Manual 01/21/2016 00:00:00 Historical Provider IMG NON RAD IMAGING PROCEDURES from Last 3 Months or Most Recently Relevant to Health Maintenance Advance Directives For more information, please contact: [phone] * Full Code (Latest Code Status on [...] Answer Comments Full Code: Discussed Care Teams Sausage Stringer Relationship Specialty Start Date End Date Elsewhere, Pcp PCP - General Internal Medicine 08/19/21
--- OUTSIDE RECORDS SUMMARY | 2023-09-26 12:23 | XMS_ITS | Encounter Summary ---
Author Organization [facility] Address [address] [place] [address] Care Team Providers Care Doula Name Role Phone Elsewhere, Pcp Primary Care Provider Unavailabl e Reason for Visit * Appointment Request (Routine) - Closed Specialty Diagnoses / Procedures Referred By Santi segundo Referred To Contact Transplant Liver Referral ID Status Reason Start Date Expiration Date Visits Re quested Visits Authorized [id number] Closed 09/09/2023 09/08/2024 1 1 Encounter Details Date Type Department Care Team (Latest Contact Info) Description 09/17/2023 10:30 AM CDT [facility] [place], [place] [address] [place] [phone] Elen Gomes M.D., Ph.D. [address] [place] [phone] Chronic Liver Disease (Primary Dx) Social History Tobacco Use Types Packs/Day Years Used Date Smoking Tobacco: Never Smokeless Tobacco: Never Alcohol Use Standard Drinks/Week Comments Not Currently 0 (1 standard drink = 0.6 oz pur e alcohol) Don? t drink [facility] Utilities Answer Date Recorded In the past [...] week 04/27/2022 How often do you attend [facility] or voodoo services? More than 4 times per year [...] and heating? Not hard at all 04/27/2022 [facility] [place] of Occupat ional Health - Occupational Stress [...] living situation today? I have a [facility] place to live 09/10/2023 Education Answer Date Recorded What is the highest level of school you have completed or the highest degree you have received? 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 - 09/17/2023 10:30 AM CDT CHIEF COMPLAINT/REASON FOR VISIT Surgical followup. HISTORY OF PRESENT ILLNESS Mr. Jennings is about 2 weeks post umbilical and inguinal hernia repairs plus a hydrocelectomy. Overall, he is doing well. He still has some abdominal and groin pain, but this seems to be getting better. He is tolerating a normal diet and able to sleep well. The drain has been putting only 20-30 cc a day. ASSESSMENT / PLAN #1 Status post umbilical and inguinal hernia repairs plus hydrocelectomy in the setting of cirrhosis Overall, Mr. Jennings is doing well and recovering well from the operation. There has been no decompensation postoperatively. With his consent, I removed the drain. I told him to stay away from strenuous exercises for the next 4 weeks. He is, however, able to walk and do stairs as he wishes. I will be happy to see him any time he would like. I answered all the questions. Elen Gomes M.D., Ph.D. CT CT Job ID: [id number]/jaw documented in this encounter Plan of Treatment Upcoming Encounters Date Type Department Care Team (Latest Contact Info) Description 10/16/2023 11:00 AM CDT Appointment Division of Gastroenterology in [place], [place] [address] [place] [phone] Marv Myrick M.D., M.P.H. [address] [place] [phone] Discharge Disposition: Home or Self Care 11/10/2023 8:00 AM CDT Appointment Department of Laboratory Medicine and Pathology, [facility], in [place], [place] [address] [place] [phone] Marv Myrick M.D., M.P.H. [address] [place] [phone] 11/10/2023 3:00 PM CDT Office Visit Division of Gastroenterology in [place], [place] [address] [place] [address] Marv Myrick M.D., M.P.H. [address] [place] [phone] documented as of this encounter Visit Diagnoses Diagnosis Chronic Liver Disease- Primary documented in this encounter Care Teams Doula Relationship Specialty Start Date End Date Elsewhere, Pcp PCP - General Internal Medicine 08/19/21 documented as of this encounter
--- OUTSIDE RECORDS SUMMARY | 2023-09-26 12:24 | XMS_ITS | Encounter Summary ---
Author Organization [facility] Address [address] [place] [address] Care Team Providers Care Inspector Insulation Name Role Phone Elsewhere, Pcp Primary Care Provider Unavailabl e Reason for Referral * Outpatient (Routine) - Closed Specialty Diagnoses / Procedures Referred By Contac t Referred To Contact Diagnoses Hydrocele Procedures US Scrotum with Doppler Elen Gomes M.D., Ph.D. 200 [place] [phone] [facility] Referral ID Status Reason Start Date Expiration Date Visits Re quested Visits Authorized [id number] Closed 09/01/2023 08/31/2024 1 1 Reason for Visit * Outpatient (Routine) - Closed Specialty Diagnoses / Procedures Referred By Contjovani t Referred To Contact Diagnoses Hydrocele Procedures US Scrotum with Doppler Elen Gomes M.D., Ph.D. [address] [place] [phone] [facility] Referral ID Status Reason Start Date Expiration Date Visits Re quested Visits Authorized [id number] Closed 09/01/2023 08/31/2024 1 1 Encounter Details Date Type Department Care Team (Latest Contact Info) Description 09/03/2023 12:08 PM CDT - 09/03/2023 11:59 PM CDT Hospital Encounter Department of Radiology, [facility], in [place], [place] [address] [place] [address] Elen Gomes M.D., Ph.D. 200 [place] [address] Hydrocele Discharge Disposition: Home or Self Care Social History Tobacco Use Types Packs/Day Years Used Date Smoking Tobacco: Never Smokeless Tobacco: Never Alcohol Use Standard Drinks/Week Comments Not Currently 0 (1 standard drink = 0.6 oz pur e alcohol) Don? t drink [facility] Utilities Answer Date Recorded In the [...] How often do you attend chur or synagogue services? More than 4 times per year 04/27/2022 Do you belong to any clubs o r organizations such as taoism groups, unions, fraternal or athletic groups, or [...] and heating? Not hard at all 04/27/2022 [facility] [place] of Occupat ional Health - Occupational Stress [...] your living situation today? I have a [facility] place to live 08/25/2023 Education Answer Date Recorded What is the highest level of school you have completed or the highest degree you have received? 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 [address] [place] [phone] Discharge Disposition: Home or Self Care 11/10/2023 8:00 AM CDT Appointment Department of Laboratory Medicine and Pathology, [facility] in [place], [place] [address] [place] [phone] Marv Myrick M.D., M.P.H. [address] [place] [phone] 11/10/2023 3:00 PM CDT Office Visit Division of Gastroenterology in [place], [place] [address] [place] [phone] Marv Myrick M.D., M.P.H. [address] [place] [phone] documented as of this encounter Procedures Procedure [...] has overall improved. Elen Gomes M.D., Ph.D. [facility] PROCEDU RES documented in this encounter Visit Diagnoses Diagnosis Hydrocele documented in this encounter Care Teams Inspector Insulation Relationship Specialty Start Date End Date Elsewhere, Pcp PCP - General Internal Medicine 08/19/21 documented as of this encounter
--- OUTSIDE RECORDS SUMMARY | 2023-09-26 12:24 | XMS_ITS | Encounter Summary ---
Author Organization [facility] Address [address] [place] [address] Care Team Providers Care Briar Shop Supervisor Name Role Phone Elsewhere, Pcp Primary Care Provider Unavailabl e Reason for Referral * Outpatient (Routine) - Closed Specialty Diagnoses / Procedures Referred By Contjovani t Referred To Contact Diagnoses Hydrocele Procedures US Scrotum with Doppler Elen Gomes M.D., Ph.D. [address] [place] [phone] [facility] Referral ID Status Reason Start Date Expiration Date Visits Re quested Visits Authorized [id number] Closed 09/01/2023 08/31/2024 1 1 Encounter Details Date Type Department Care Team (Late st Contact Info) Description 09/01/2023 [facility] [place], [place] [address] [place] [phone] Elen Gomes M.D., Ph.D. [address] [place] [phone] Hydrocele (Primary Dx) Social History Tobacco Use [...] any clubs o r organizations such as mu-ism groups, unions, fraternal or athletic groups, or [...] and heating? Not hard at all 04/27/2022 [facility] [place] of Occupat ional Health - Occupational Stress [...] money to buy more. 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 [address] [place] [phone] Discharge Disposition: Home or Self Care 11/10/2023 8:00 AM CDT Appointment Department of Laboratory Medicine and Pathology, [facility] in [place], [place] [address] [place] [phone] Marv Myrick M.D., M.P.H. [address] [place] [phone] 11/10/2023 3:00 PM CDT Office Visit Division of Gastroenterology in [place], [place] [address] [place] [phone] Marv Myrick M.D., M.P.H. [address] [place] [phone] documented as of this encounter Results * [...] documented as of this encounter Care Teams Briar Shop Supervisor Relationship Specialty Start Date End Date Elsewhere, Pcp PCP - General Internal Medicine 08/19/21 documented as of this encounter
--- OUTSIDE RECORDS SUMMARY | 2023-09-26 12:24 | XMS_ITS | Encounter Summary ---
Author Organization [facility] Address [address] [place] [id number] Care Team Providers Care Epic Cadence Specialists Name Role Phone Elsewhere, Pcp Primary Care Provider Unavailabl e Reason for Visit * Reason Comments Abdominal Pain Post-op Problem * Auth/Cert (Routine) Specialty Diagnoses / Procedures Referred By Contac t Referred To Contact Diagnoses Colitis Abdominal Pain Procedures n/a Referral ID Status Reason Start Date Expiration Date Visits Re quested Visits Authorized [id number] 1 1 Encounter Details Date Type Department Care Team (Latest Contact Info) Description 09/09/2023 10:39 PM CDT - 09/10/2023 12:00 PM CDT Hospital Encounter [facility], [facility], Tenth Floor [address] [place] [phone] Elias Stuart M.D. [address] [place] [phone] Keny Benz M.D. [address] [place] [address] [phone] Colitis (Primary Dx) Discharge Disposition: Home or Self Care Social History Tobacco Use Types Packs/Day Years Used Date Smoking Tobacco: Never Smokeless Tobacco: Never Alcohol Use Standard Drinks/Week Comments Not Currently 0 (1 standard drink = 0.6 oz pur e alcohol) Don? t drink [facility] Utilities Answer Date Recorded [...] any clubs o r organizations such as adventism groups, unions, fraternal or athletic groups, or [...] and heating? Not hard at all 04/27/2022 [facility] [place] [facility] Occupat ional Health - Occupational Stress [...] your living situation today? I have a [facility] to live 09/10/2023 Education Answer Date Recorded What is the highest level of school you have completed or the highest degree you have received? Bachelor's degree (e.g., BA, AB, BS) 11/11/2020 Sex and Gender Information Value Date Recorded Sex Assigned at Male 02/12/2021 6:18 PM [employer] Gender Identity Male 11/11/2020 11:30 AM CDT [...] AM CDT DISCHARGE SUMMARY BRIEF OVERVIEW Hospital: [facility] Discharge Provider: Keny Benz M.D. Primary Care [...] has decompensated by esophageal varices and ascites. [facility]: Emergency Department Course Presentation: Presented with [...] transplant service for further management and cares. [facility]: Liver Transplant Service On admission, patient is stable at baseline. No localizing signs or symptoms of infection. 1-2 bowel movements per day, Likely type 4 or 5 without blood. Suspect [...] results. Verify creatinine results ordering a Creatinine (94930.2) Glucose, P Date Value Ref Range Status [...] has decompensated by esophageal varices and ascites. [facility]: Emergency Department Course Presentation: Presented with [...] fairly regular. 1-2 bowel movements per day Likely type 4 or5. No blood in the [...] Garza M.D. Gastroenterology & Hepatology Fellow Pager #[phone] documented in this encounter Nursing Notes * [...] documented in this encounter ED Notes * Elias Stuart M.D. - 09/09/2023 11:35 PM CDT I have personally seen and examined this patient. I have fully participated in the care of this patient. I have reviewed all clinical information including history, physical exam, orders, and plan. Franec with the note of the resident. ED Course as of 09/22/23 0693 ThuSep 09, 2023 2358 Potassium, P(!): 3.4 2358 Sodium, P(!): 128 2359 Platelet Count(!): 89 2359 Leukocytes: 4.1 2359 Hemoglobin(!): 12.6 2359 Lactate(!): 5.1 Mamta Sep 10, 2023 0107 Alkaline Phosphatase, S(!): 166 0107 Albumin, S(!): 3.0 0107 Bilirubin, Direct, S(!): 0.5 0107 Lipase, S: 45 0107 Lactate(!): 5.1 0107 Cta/p: IMPRESSION: 1. Negative for acute pulmonary embolism. 2. Interval decreased extent of groundglass and nodular opacities, suggestive of infectious/inflammatory process. 3. Interval increased colonic wall thickening involving the cecum and ascending colon as well as the terminal ileum, which may be seen in the setting of colitis/terminal ileitis. Findings could be seen in the setting of portal colopathy; although the interval progression from 08/27/2023 is not expected. 4. Postoperative changes umbilical hernia repair with mesh. Expected postoperative pneumoperitoneum. 5. Cirrhosis with small volume abdominopelvic ascites. 0116 Repeat lactate trending in the right direction at 3.1 0224 Influenza A, PCR, Rapid, V: Negative 0224 Influenza B, PCR, Rapid, V: Negative 0224 SARS CoV-2, PCR, Rapid, V: Undetected Final Diagnoses: as of 09/22/23 2333 Colitis Elias Stuart M.D. 09/22/23 2334 * Sebastián Hilliard R.N. - 09/09/2023 10:54 [...] days as well. Sebastián Hilliard R.N. 09/09/23 3407 * Quentin Saunders M.D. - 09/09/2023 10:52 PM CDT EMERGENCY DEPARTMENT NOTE CHIEF COMPLAINT/REASON FOR VISIT Abdominal Pain and Post-op Problem HISTORY OF PRESENT ILLNESS The patient is a 72 y.o. 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 [facility]: Emergency Department Course Presentation: Presented with [...] transplant service for further management and cares. [facility]: Liver Transplant Service On admission, patient is stable at baseline. No localizing signs or symptoms of infection. 1-2 bowel movements per day, Likely type 4 or 5 without blood. Suspect [...] AM CDT Appointment Division of Gastroenterology in [place], [place] [address] [place] [phone] Marv Myrick M.D., M.P.H. [address] [place] [phone] Discharge Disposition: Home or Self Care 11/10/2023 8:00 AM CDT Appointment Department of Laboratory Medicine and Pathology, [facility], in [place], [place] [address] [place] [phone] Marv Myrick M.D., M.P.H. [address] [place] [phone] 11/10/2023 3:00 PM CDT Office Visit Division of Gastroenterology in [place], [place] [address] [place] [phone] Marv Myrick M.D., M.P.H. [address] [place] [phone] documented as of this encounter Procedures Procedure [...] (ABNORMAL) Lactate (09/10/2023 4:10 AM CDT) Pathologist [facility] Lactate, P 3.0(H) 0.5 - 2.2 mmol/L 09/10/2023 4:29 AM CDT STMA Blood 09/10/2023 4:10 AM CDT 09/10/2023 4:15 AM CDT Quentin Saunders M.D. LAB BLOOD NON ADD-ON [facility] [address] [place] [address], [facility] [address] [place] [address] * Influenza A/B, SARS CoV-2, PCR, Rapid Symptomatic (09/10/2023 1:46 AM CDT) [facility] Influenza A, PCR, Rapid, V Negative Negative [...] at the following links: For Healthcare Providers: https://www.fda.gov/media/902387/download For Patients: https://www.fda.gov/media/834650/download Infl A/B, SARS CoV-2, PCR, Source Swab, Nasopharynx 09/10/2023 1:52 AM CDT [facility] Swab (Nasopharynx) 09/10/2023 1:46 AM CDT 09/10/2023 1:52 AM CDT Quentin Saunders M.D. LAB MICROBIOLOGY - G ENERAL ORDERABLES Performing Organization Address City/[facility]/ZIP Co de Phone Number [facility] [address] [place] [address], [facility] STMA [facility] [address] [place] [address] * (ABNORMAL) Lactate for Sepsis with Reflex, POCT (09/10/2023 1:13 AM CDT) Lactate, POCT 3.01(H) 0.50 - 2.20 mmol/L 09/10/2023 1:22 AM CDT PCLX Blood (Blood, Venous) 09/10/2023 1:13 AM CDT 09/10/2023 1:13 AM CDT Quentin Saunders M.D. LAB POCT ORDERABLES - DEVICE Performing Organization Address [facility] Co de Phone Number POC [facility] [address] [place] [address], [facility] PCLX [facility] POC [address] [place] [address] * CT Chest Angiogram and Pulmonary Arteries [...] fibrotic interstitial lung disease. Quentin Saunders M.D. [facility] CT PROCEDURES * Bacteria / Neda Culture, Blood # 2 (09/09/2023 11:47 PM CDT) Bacteria/Taylor da Culture, Blood No growth after 5 days of incubation. 09/15/2023 1:02 AM CDT DTL Blood (Blood, Peripheral Draw) 09/09/2023 11:47 PM CDT 09/09/2023 11:56 PM CDT Comment:Specimen Source Site : Blood Narrative [facility] - 09/15/2023 1:02 AM CDT Received Bactec Peds bottle Quentin Saunders M.D. LAB MICROBIOLOGY - G ENERAL ORDERABLES Performing Organization Address City/[facility]/ZIP Co de Phone Number [facility] [address] [place], [place] [phone] [place] [address] 200 [place] [address] * Bacteria / Neda Culture, Blood #1 (09/09/2023 11:38 PM CDT) Pathologist [facility] Bacteria/Taylor da Culture, Blood No growth after 5 days of incubation. 09/15/2023 1:02 AM CDT DT Blood (Blood, Peripheral Draw) 09/09/2023 11:38 PM CDT 09/09/2023 11:56 PM CDT Comment:Specimen Source Site : Blood Narrative [facility] - 09/15/2023 1:02 AM CDT Received Bactec Peds bottle Quentin Saunders M.D. LAB MICROBIOLOGY - G ENERAL ORDERABLES Performing Organization Address City/[facility]/ZIP Co de Phone Number [facility] [address] [place], [place] [phone] [place] [address] [address] [place] [address] * Lipase (09/09/2023 11:01 PM CDT) Pathologist [facility] Lipase, S 45 13 - 60 U/L 09/10/2023 12:17 AM CDT DT Blood (Blood, Venous) 09/09/2023 11:01 PM CDT 09/09/2023 11:24 PM CDT Quentin Saunders M.D. LAB BLOOD ADD-ON Performing Organization Address City/[facility]/ZIP Co de Phone Number [facility] [address] [place], [place] [phone] [place] [address] [address] [place] [address] * (ABNORMAL) Hepatic Function Panel (09/09/2023 11:01 PM CDT) Pathologist [facility] Bilirubin, Total, S 1.1 0.0 - 1.2 [...] M.D. LAB BLOOD ADD-ON Performing Organization Address City/[facility]/ZIP Co de Phone Number [facility] [address] [place] [address], [facility] DTL [facility] [address] [place] [address] * (ABNORMAL) Lactate, B (09/09/2023 11:01 PM CDT) Lactate, B 5.1(H) 0.5 - 2.2 mmol/L 09/09/2023 11:07 PM CDT STMA Blood (Blood, Venous) 09/09/2023 11:01 PM CDT 09/09/2023 11:05 PM CDT Quentin Saunders M.D. LAB BLOOD NON ADD-ON [facility] [address] [place] [address], [facility] STMA [facility] [address] [place] [address] * (ABNORMAL) Basic Metabolic Panel (09/09/2023 11:01 PM CDT) Potassium, P 3.4(L) 3.6 - 5.2 mmol/L [...] CDT Quentin Saunders M.D. LAB BLOOD ADD-ON [facility] [address] [place] [address], [place] [facility] [address] [place] [address] * (ABNORMAL) CBC with Differential, Blood (09/09/2023 11:01 PM CDT) Pathologist [facility] Hemoglobin 12.6(L) 13.2 - 16.6 g/dL 09/09/2023 [...] CDT Quentin Saunders M.D. LAB BLOOD ADD-ON [facility] [address] [place] [address], [facility] STMA [facility] [address] [place] [address] [facility] [address] [place] [address] documented in this encounter Visit Diagnoses Diagnosis [...] mL/hr, Administer over 1 Hours, Once, On Thu09/10/23 at 0109, For 1 dose New Bag 09/10/2023 1:19 AM CDT 1,000 mL 100 0 mL/hr morphine injection 4 mg 4 mg, intravenous, Every 1 hour PRN, severe pain or score 7-10 of 10, Starting on Thu09/10/23 at 0211, For 3 doses NaCl 0.9 % bolus 1,000 mL 1,000 mL, intravenous, at 1,000 mL/hr, Administer over 1 Hours, Once, On Thu09/09/23 at 2303, For 1 dose New Bag 09/09/2023 11:05 PM CDT 1,000 mL 1000 mL/hr NaCl 0.9 % bolus 1,000 mL 1,000 mL, intravenous, at 1,000 mL/hr, Administer over 1 Hours, Once, On Thu09/10/23 at 0205, For 1 dose New Bag 09/10/2023 2:11 AM CDT 1,000 mL 100 0 mL/hr NaCl 0.9% infusion 75 mL/hr, intravenous, Continuous, Starting on Thu09/10/23 at 0219 New Bag 09/10/2023 3:25 AM [...] intravenous, Once in imaging, contrast, Starting on 09/09/23 at 2352, For 1 dose, Imaging Protocol Orders, Dose per Radiant Medication Guidelines 0005 (Given - Provid er: Lesly Larsen R.N. - Comment: [id number]) morphine injection 4 mg 4 mg, intravenous, Every 1 hour PRN, severe pain or score 7-10 of 10, Starting on Mamta 09/10/23 at 0211, For 3 doses ondansetron (PF) injection 4 mg (Zofran) 4 mg, intravenous, Every 4 hours PRN, nausea, vomiting, Starting on 09/09/23 at 2344 2354 (Given - Provider: Sebastián [...] documented as of this encounter Care Teams Epic Cadence Specialists Relationship Specialty Start Date End Date Elsewhere, Pcp PCP - General Internal Medicine 08/19/21 documented as of this encounter
--- OUTSIDE RECORDS SUMMARY | 2023-09-26 12:24 | XMS_ITS | Encounter Summary ---
Author Organization [facility] Address [address] [place] [address] Care Team Providers Care Diesel Stationary Engineer Name Role Phone Elsewhere, Pcp Primary Care Provider Unavailabl e Reason for Visit * Auth/Cert (Routine) Specialty Diagnoses / Procedures Referred By Santi t Referred To Contact Diagnoses Hernia Hernia Inguinal Left Hernia [K46.9]. Procedures REPAIR HERNIA UMBILICAL WITHOUT MESH. REPAIR HERNIA INGUINAL WITH MESH. HYDROCELECTOMY. Referral ID Status Reason Start Date Expiration Date Visits Re quested Visits Authorized [id number] 1 1 Encounter Details Date Type Department Care Team (Late st Contact Info) Description 09/04/2023 1:00 PM CDT Anesthesia Event [facility] [address] [place] [phone] Abner Cohen M.D. [address] [place] [phone] Anesthesia Record Procedure Summary Procedure Name Responsible [...] 1325 Anes CS Handoff I, Ivy Shahid, BLOCKER HAND, RN PATIENT SERVICES, MNA, attest that I have reconciled the controlled substances and that I have reviewed all the significant information with the next anesthesia provider assuming care of this patient. 1328 Proc Start 1350 Anes CS Handoff I, Thai Correa tt, BLOCKER HAND, RN PATIENT SERVICES, attest that I have reconciled the controlled [...] 09/04/23 1315 by Brooke Rosales APRN, CRNA, NOELLE 09/04/23 1443 by Brooke Rosales APRN, CRNA, MNVaibhav documented in this encounter Social History Tobacco Use Types Packs/Day Years Used Date Smoking Tobacco: Never Smokeless Tobacco: Never Alcohol Use Standard Drinks/Week Comments Not Currently 0 (1 standard drink = 0.6 oz pur e alcohol) Don? t drink [facility] Utilities Answer Date Recorded In the past 12 months has [facility] [employer], gas, oil, or water [employer] threatened to shut off services in your [...] How often do you attend chur or alevism services? More than 4 times per year [...] and heating? Not hard at all 04/27/2022 [facility] Occupat ional Health - Occupational [...] your living situation today? I have a [facility] place to live 08/25/2023 Education Answer Date Recorded What is the highest level of school you have completed or the highest degree you have received? Bachelor's degree (e.g., BA, AB, BS) 11/11/2020 Sex and Gender Information Value Date Recorded Sex Assigned at Male 02/12/2021 6:18 PM TOOTH CLERK Gender Identity Male 11/11/2020 11:30 AM CDT Sexual Orientation Straight 11/11/2020 11 :30 AM CDT documented as of this encounter OR Notes * Anesthesia Postprocedure Evaluation - Abner Cohen M.D. - 09/04/2023 2:58 PM CDT Patient: Niko Jennings Procedure Summary Date: 09/04/23 Room / Location: [address] / [facility] in [place], [place] Anesthesia Start: 1300 Anesthesia Stop: 1453 [...] ETT location: oral VL device: glide scope [place] scope blade size: 4 Tube size: 7.5 [...] Hernia [K46.9] Pre-op diagnosis: Hernia [K46.9]. Location: [address] [facility] / [facility] in [place], [place] Providers: Elen Gomes M.D., Ph.D. Pertinent [...] with patient /legal guardian or through an physician relations specialist. Risks/Benefits/Alternatives of Blood transfusion discussed with patient [...] AM CDT Appointment Division of Gastroenterology in [address] [phone] Marv Myrick M.D., M.P.H. [address] [place] [phone] Discharge Disposition: Home or Self Care 11/10/2023 8:00 AM CDT Appointment Department of Laboratory Medicine and Pathology, [facility] in [place], [place] [address] [place] [phone] Marv Myrick M.D., M.P.H. [address] [place] [phone] 11/10/2023 3:00 PM CDT Office Visit Division of Gastroenterology in [place], [place] [address] [place] [phone] Marv Myrick M.D., M.P.H. [address] [place] [phone] documented as of this encounter Procedures Procedure [...] ETT location: oral VL device: glide scope [place] scope blade size: 4 Tube size: 7.5 [...] mg documented in this encounter Care Teams Diesel Stationary Engineer Relationship Specialty Start Date End Date Elsewhere, Pcp PCP - General Internal Medicine 08/19/21 documented as of this encounter
--- OUTSIDE RECORDS SUMMARY | 2023-09-26 12:24 | XMS_ITS | Encounter Summary ---
Author Organization [facility] Address [address] [place] [address] Care Team Providers Care Shank Paperer Name Role Phone Elsewhere, Pcp Primary Care Provider Unavailabl e Reason for Visit * Auth/Cert (Routine) Specialty Diagnoses / Procedures Referred By Santi t Referred To Contact Diagnoses Hernia Hernia Inguinal Left Hernia [K46.9]. Procedures REPAIR HERNIA UMBILICAL WITHOUT MESH. REPAIR HERNIA INGUINAL WITH MESH. HYDROCELECTOMY. Referral ID Status Reason Start Date Expiration Date Visits Re quested Visits Authorized [id number] 1 1 Encounter Details Date Type Department Care Team (Latest Contact Info) Description 09/04/2023 8:05 AM CDT - 09/05/2023 12:54 PM CDT Hospital Encounter [facility], Tenth Floor [address] [place] [address] Elen Gomes M.D., Ph.D. [address] [place] [address] Discharge Disposition: Home or Self Care Social History Tobacco Use Types Packs/Day Years Used Date Smoking Tobacco: Never Smokeless Tobacco: Never Alcohol Use Standard Drinks/Week Comments Not Currently 0 (1 standard drink = 0.6 oz pur e alcohol) Don? t drink [facility] Utilities Answer Date Recorded In the past 12 months has th e electric, gas, oil, or water [employer] threatened to shut off services in your [...] often do you attend chur ch or temple services? More than 4 times per year 04/27/2022 Do you belong to any clubs o r organizations such as latter day groups, unions, fraternal or athletic groups, or [...] hard at all 04/27/2022 [facility] [place] of Occupat ional Health - Occupational Stress [...] your living situation today? I have a [facility] place to live 08/25/2023 Education Answer Date Recorded What is the highest level of school you have completed or the highest degree you have received? Bachelor's degree (e.g., BA, AB, BS) 11/11/2020 Sex and Gender Information Value Date Recorded Sex Assigned at Male 02/12/2021 6:18 PM PLASTIC SURGERY MANAGER Gender Identity Male 11/11/2020 11:30 AM CDT [...] Everywhere. * Oxycodone, Rapid Release (By mouth) (Occitan) documented in this encounter Medications at Time [...] recommendations of Transplant Surgery, Nursing, Nutrition, Pharmacy, Securities Teller, Case Management and Hospital Coordinator. Electronically signed [...] drain. Left primary inguinal hernia repair. Hydrocelectomy. RFID SPECIALIST: Leda Brandt M.D., Ph.D. A assistant to the dean actively participated and was necessary for one [...] upper quadrant was then found and a 15-Swedish CATHERINE was inserted through that. The tip was laid in the pelvis. The hernia defect was closed with #1 PDS suture. The skin site was closed with 4-0 running Monocryl. Patient tolerated the procedure well and was taken to the recovery unit in stable condition. TPR: 2 Elen Gomes M.D., Ph.D. CT CT Job ID: [id number] * Op Note - Rickie Tolliver M.D. - 09/04/2023 1:28 PM CDT Pre-op Diagnosis Hernia; hydrocele (communicating; left) Post-op Diagnosis Hernia; hydrocele (communicating; left) Pneumatic Tube Fitter A assistant to the dean actively participated and was necessary for one [...] AM CDT Appointment Division of Gastroenterology in [place], [place] [address] [place] [phone] Marv Myrick M.D., M.P.H. [address] [place] [phone] Discharge Disposition: Home or Self Care 11/10/2023 8:00 AM CDT Appointment Department of Laboratory Medicine and Pathology, [facility] in [place], [place] [address] [place] [address] Marv Myrick M.D., M.P.H. [address] [place] [phone] 11/10/2023 3:00 PM CDT Office Visit Division of Gastroenterology in [place], [place] [address] [place] [address] Marv Myrick M.D., M.P.H. [address] [place] [phone] documented as of this encounter Procedures Procedure [...] Ti Delvalle M.D., M.S. LAB BLOOD ADD-ON [facility] [address] [place], [place] [address] [place] [address] * (ABNORMAL) Hepatic Function Panel (09/05/2023 9:36 [...] Ti Delvalle M.D., M.S. LAB BLOOD ADD-ON [facility] [address] [place] [address], [facility] [address] [place] [address] * (ABNORMAL) CBC without Differential (09/05/2023 6:50 [...] Leda Brandt M.D., Ph.D. LAB BLOOD ADD-ON [address] [address], [place] [address] * (ABNORMAL) Basic Metabolic Panel (09/05/2023 6:50 AM CDT) [facility] Potassium, S 4.1 3.6 - 5.2 mmol/L [...] Ph.D. LAB BLOOD ADD-ON Performing Organization Address City/[facility]/ZIP Co de Phone Number [facility] [address] [place] [address], [facility] DTL [facility] [address] [place] [address] * Glucose, POCT (09/04/2023 3:30 PM CDT) Glucose, POCT, B 129 70 - 140 mg/dL 09/04/2023 5:25 PM CDT PCDE Site Capillary 09/04/2023 5:25 PM CDT PCDE Blood 09/04/2023 3:30 PM CDT 09/04/2023 5:25 PM CDT Unknown Provider LAB POCT ORDERABLES- MANUAL Performing Organization Address City/[facility]/ZIP Co de Phone Number POC [facility] [address] [place] [address], [facility] PCDE [facility] [address] [place] [address] * Glucose, POCT (09/04/2023 12:25 PM CDT) Glucose, POCT, B 103 70 - 140 mg/dL 09/04/2023 12:27 PM CDT PCDE Site Capillary 09/04/2023 12:27 PM CDT PCDE Blood 09/04/2023 12:2 5 PM CDT 09/04/2023 12:27 PM CDT Unknown Provider LAB POCT ORDERABLES- MANUAL Performing Organization Address City/[facility]/ZIP Co de Phone Number POC [facility] [address] [place] [address], [facility] PCDE [facility] POC [address] [place] [address] * Glucose, POCT (09/04/2023 8:49 AM CDT) Glucose, POCT, B 111 70 - 140 mg/dL 09/04/2023 8:50 AM CDT PCDE Last Intake 3-4 hours 09/04/2023 8:50 AM CDT PCDE Blood 09/04/2023 8:49 AM CDT 09/04/2023 8:50 AM CDT Unknown Provider LAB POCT ORDERABLES- MANUAL Performing Organization Address [facility] de Phone Number POC [facility] [address] [place] [address], [facility] PCDE [facility] POC [address] [place] [address] * (ABNORMAL) Hemoglobin A1c (09/04/2023 8:36 AM [...] Leda Brandt M.D., Ph.D. LAB BLOOD ADD-ON [facility] [address] [place] [address], [facility] DTL [facility] [address] [place] [address] documented in this encounter Visit Diagnoses Diagnosis [...] mg (LEVAQUIN) 750 mg, oral, Daily before morning meal, First dose on Thu09/05/23 at 0700, For [...] mg (PROTONIX) 40 mg, oral, Daily before morning meal, First dose on Thu09/05/23 at 0700, pantoprazole [...] 1325 (Given - Provider: Thai Cameron APRN, [facility]) furosemide tablet 40 mg (LASIX) 40 mg, oral, 2 times daily, First dose on Thu09/04/23 at 2100 2008 (Given - Provider: Rola Brown R.N.) 0942 (Given - Provider: Jasmyn Villeda R.N.) levoFLOXacin tablet 750 mg (LEVAQUIN) 750 mg, oral, Daily before morning meal, First dose on 09/05/23 at 0700, For [...] mg (PROTONIX) 40 mg, oral, Daily before morning meal, First dose on Thu09/05/23 at 0700, pantoprazole [...] dose, PACU (only) 1550 (Given - Provider: oRn Lewis R.N.) naloxone injection 0.2 mg (NARCAN) [...] Provider: Rola Brown R.N.)0530 (Given - Provider: Brynn ZafarNMarcus)2904 (Given - Provider: Jasmyn Villeda R.N.) polyethylene [...] 1724 documented in this encounter Care Teams Shank Paperer Relationship Specialty Start Date End Date Elsewhere, Pcp PCP - General Internal Medicine 08/19/21 documented as of this encounter
--- OUTSIDE RECORDS SUMMARY | 2023-09-26 12:24 | XMS_ITS | Encounter Summary ---
Author Organization [facility] Address [address] [place] [address] Care Team Providers Care Leaflet Or Newspaper Deliverer Name Role Phone Elsewhere, Pcp Primary Care Provider Unavailabl e Reason for Visit * Auth/Cert (Routine) Specialty Diagnoses / Procedures Referred By Santi t Referred To Contact Diagnoses Hernia Hernia Inguinal Left Hernia [K46.9]. Procedures REPAIR HERNIA UMBILICAL WITHOUT MESH. REPAIR HERNIA INGUINAL WITH MESH. HYDROCELECTOMY. Referral ID Status Reason Start Date Expiration Date Visits Re quested Visits Authorized [id number] 1 1 Encounter Details Date Type Department Care Team (Late st Contact Info) Description 09/04/2023 12:33 PM CDT - 09/04/2023 3:32 PM CDT Surgery [facility] [address] [place] [address] Elen Gomes M.D., Ph.D. [address] [place] [address] REPAIR HERNIA UMBILICAL WITHOUT MESH. Social History Tobacco Use Types Packs/Day Years Used Date Smoking Tobacco: Never Smokeless Tobacco: Never Alcohol Use Standard Drinks/Week Comments Not Currently 0 (1 standard drink = 0.6 oz pur e alcohol) Don? t drink [facility] Utilities Answer Date Recorded In the past 12 months has [employer], gas, oil, or water [employer] threatened to shut off services in your [...] often do you attend chur ch or methodist services? More than 4 times per year [...] and heating? Not hard at all 04/27/2022 [facility] [place] of Occupat ional Health - Occupational Stress [...] your living situation today? I [facility] a [facility] 08/25/2023 Education Answer Date Recorded What is the highest level of school you have completed or the highest degree you have received? Bachelor's degree (e.g., BA, AB, BS) 11/11/2020 Sex and Gender Information Value Date Recorded Sex Assigned at Male 02/12/2021 6:18 PM HEALTH CLUB MANAGER Gender Identity Male 11/11/2020 11:30 AM [...] Everywhere. * Oxycodone, Rapid Release (By mouth) (Icelandic) documented in this encounter Medications at Time [...] recommendations of Transplant Surgery, Nursing, Nutrition, Pharmacy, Fringe Weaver, Case Management and Hospital Coordinator. Electronically signed [...] drain. Left primary inguinal hernia repair. Hydrocelectomy. DISTRIBUTOR SALES MANAGER: Leda Brandt M.D., Ph.D. A operations and intelligence assistant actively participated and was necessary for one [...] upper quadrant was then found and a 15-Bhutanese CATHERINE was inserted through that. The tip was laid in the pelvis. The hernia defect was closed with #1 PDS suture. The skin site was closed with 4-0 running Monocryl. Patient tolerated the procedure well and was taken to the recovery unit in stable condition. TPR: 2 Elen Gomes M.D., Ph.D. CT CT Job ID: [id number] * Op Note - Rickie Tolliver M.D. - 09/04/2023 1:28 PM CDT Pre-op Diagnosis Hernia; hydrocele (communicating; left) Post-op Diagnosis Hernia; hydrocele (communicating; left) Gas Meter Installer Helper A operations and intelligence assistant actively participated and was necessary for one [...] AM CDT Appointment Division of Gastroenterology in [place], [place] [address] [place] [phone] Marv Myrick M.D., M.P.H. [address] [place] [phone] Discharge Disposition: Home or Self Care 11/10/2023 8:00 AM CDT Appointment Department of Laboratory Medicine and Pathology, [facility] in [place], [place] [address] [place] [phone] Marv Myrick M.D., M.P.H. [address] [place] [phone] 11/10/2023 3:00 PM CDT Office Visit Division of Gastroenterology in [place], [place] [address] [place] [phone] Marv Myrick M.D., M.P.H. [address] [place] [phone] documented as of this encounter Procedures Procedure [...] Ti Delvalle M.D., M.S. LAB BLOOD ADD-ON [facility] [address] [place], [place] [address] [address] [address] * (ABNORMAL) Hepatic Function Panel (09/05/2023 9:36 [...] Ti Delvalle M.D., M.S. LAB BLOOD ADD-ON [facility] [address] [place] [address], [facility] [address] [place] [address] * (ABNORMAL) CBC without Differential (09/05/2023 6:50 [...] Leda Brandt M.D., Ph.D. LAB BLOOD ADD-ON [place] [address] [place] [address], [facility] [place] [address] * (ABNORMAL) Basic Metabolic Panel (09/05/2023 6:50 AM CDT) Pathologist [facility] Potassium, S 4.1 3.6 - 5.2 mmol/L [...] Ph.D. LAB BLOOD ADD-ON Performing Organization Address City/[facility]/ZIP Co de Phone Number [facility] [address] [place] [address], [facility] DTL [facility] [address] [place] [address] * Glucose, POCT (09/04/2023 3:30 PM CDT) Glucose, POCT, B 129 70 - 140 mg/dL 09/04/2023 5:25 PM CDT PCDE Site Capillary 09/04/2023 5:25 PM CDT PCDE Blood 09/04/2023 3:30 PM CDT 09/04/2023 5:25 PM CDT Unknown Provider LAB POCT ORDERABLES- MANUAL Performing Organization Address City/[facility]/ZIP Co de Phone Number POC [facility] [address] [place] [address], [facility] PCDE [facility] [address] [place] [address] * Glucose, POCT (09/04/2023 12:25 PM CDT) Glucose, POCT, B 103 70 - 140 mg/dL 09/04/2023 12:27 PM CDT PCDE Site Capillary 09/04/2023 12:27 PM CDT PCDE Blood 09/04/2023 12:2 5 PM CDT 09/04/2023 12:27 PM CDT Unknown Provider LAB POCT ORDERABLES- MANUAL [facility] [address] [place] [address], [facility] PCDE [facility] [address] [place] [address] * Glucose, POCT (09/04/2023 8:49 AM CDT) Glucose, POCT, B 111 70 - 140 mg/dL 09/04/2023 8:50 AM CDT PCDE Last Intake 3-4 hours 09/04/2023 8:50 AM CDT PCDE Blood 09/04/2023 8:49 AM CDT 09/04/2023 8:50 AM CDT Unknown Provider LAB POCT ORDERABLES- MANUAL Performing Organization Address [facility] Co de Phone Number POC [facility] [address] [place] [address], [facility] PCDE [facility] POC [address] [place] [address] * (ABNORMAL) Hemoglobin A1c (09/04/2023 8:36 AM [...] Leda Brandt M.D., Ph.D. LAB BLOOD ADD-ON [facility] [address] [place] [address], [place] DTL [facility] [address] [place] [address] documented in this encounter Visit Diagnoses Diagnosis [...] g (COMPLETED) 50 g, intravenous, Once, On Thu09/05/23 at 0130, For 1 dose, If no infusion rate specified: Administer the 25% solution at 100 mL/hr 0113 (New Bag - Provider: Rola Brown RKlever) ceFAZolin injection 2,000 mg (ANCEF) (COMPLETED) 2,000 [...] 1325 (Given - Provider: Thai Cameron APRN, RIVETING MACHINE OPERATOR AUTOMATIC) furosemide tablet 40 mg (LASIX) 40 mg, oral, 2 times daily, First dose on Thu09/04/23 at 2100 2008 (Given - Provider: Rola Brown RMarcusN.) 0942 (Given - Provider: Jasmyn Villeda R.N.) [...] meal, First dose on 09/05/23 at 0700, pantoprazole [...] Rola Brown R.N.) 0942 (Given - Provider: Jasmny Villeda R.N.) Continuous Medication Order 09/03/2023 09/04/2023 [...] 1724 documented in this encounter Care Teams Leaflet Or Newspaper Deliverer Relationship Specialty Start Date End Date Elsewhere, Pcp PCP - General Internal Medicine 08/19/21 documented as of this encounter
--- OUTSIDE RECORDS SUMMARY | 2023-09-26 12:24 | XMS_ITS | Encounter Summary ---
Author Organization [facility] Address [address] [place] [address] Care Team Providers Care Cognos Architect Name Role Phone Elsewhere, Pcp Primary Care Provider Unavailabl e Encounter Details Date Type Department Care Team (Late st Contact Info) Description 08/28/2023 Remote Monitoring Remote Patient Monitoring [facility] [address] [place] [phone] Briana Mayo Social History Tobacco Use Types Packs/Day Years Used Date Smoking Tobacco: Never Smokeless Tobacco: Never Alcohol Use Standard Drinks/Week Comments Not Currently 0 (1 standard drink = 0.6 oz pur e alcohol) Don? t drink [facility] Utilities Answer Date Recorded In the past 12 months has [employer], gas, oil, or water [employer] threatened to shut off services in your [...] How often do you attend chur or druze services? More than 4 times per year 04/27/2022 Do you belong to any clubs o r organizations such as lutheran groups, unions, fraternal or athletic groups, or [...] and heating? Not hard at all 04/27/2022 [facility] - Occupational Stress Questionnaire Answer Date [...] your living situation today? I have a [facility] place to live 08/25/2023 Education Answer Date Recorded What is the highest level of school you have completed or the highest degree you have received? Bachelor's degree (e.g., BA, AB, BS) 11/11/2020 Sex and Gender Information Value Date Recorded Sex Assigned at Male 02/12/2021 6:18 PM RADIOACTIVITY TECHNICIAN Gender Identity Male 11/11/2020 11:30 AM CDT Sexual Orientation Straight 11/11/2020 11 :30 AM CDT documented as of this encounter Progress Notes * Briana Mayo - 08/28/2023 2:44 PM CDT Remote Monitoring Program - Patient Declined Patient was enrolled into a [facility] Remote Patient Monitoring Program and declined participation. The Remote Patient Monitoring care team recommended that the patient receive outpatient care through the [facility] Remote Patient Monitoring program. The program offers [...] AM CDT Appointment Division of Gastroenterology in [place], [place] [address] [place] [phone] Marv Myrick M.D., M.P.H. [address] [place] [phone] Discharge Disposition: Home or Self Care 11/10/2023 8:00 AM CDT Appointment Department of Laboratory Medicine and Pathology, [facility] in [place], [place] [address] [place] [phone] Marv Myrick M.D., M.P.H. [address] [place] [phone] 11/10/2023 3:00 PM CDT Office Visit Division of Gastroenterology in [place], [place] [address] [place] [phone] Marv Myrick M.D., M.P.H. [address] [place] [phone] documented as of this encounter Visit Diagnoses Not on filedocumented in this encounter Care Teams Cognos Architect Relationship Specialty Start Date End Date Elsewhere, Pcp PCP - General Internal Medicine 08/19/21 documented as of this encounter
--- OUTSIDE RECORDS SUMMARY | 2023-09-26 12:24 | XMS_ITS | Encounter Summary ---
Author Organization [facility] Address [address] [place] [address] Care Team Providers Care Sap Treasury Consultant Name Role Phone Elsewhere, Pcp Primary Care Provider Unavailabl e Reason for Visit * Appointment Request (Routine) - Closed Specialty Diagnoses / Procedures Referred By Santi t Referred To Contact Transplant Liver Diagnoses Hernia Inguinal Hernia Inguinal Bilateral Elen Gomes M.D., Ph.D. [address] [place] [phone] Referral ID Status Reason Start Date Expiration Date Visits Re quested Visits Authorized [id number] Closed 09/01/2023 08/31/2024 1 1 Encounter Details Date Type Department Care Team (Latest Contact Info) Description 09/03/2023 11:00 AM CDT [facility] [place], [place] [address] [place] [phone] Elen Gomes M.D., Ph.D. [address] [place] [phone] Chronic Liver Disease (Primary Dx) Social History Tobacco Use Types Packs/Day Years Used Date Smoking Tobacco: Never Smokeless Tobacco: Never Alcohol Use Standard Drinks/Week Comments Not Currently 0 (1 standard drink = 0.6 oz pur e alcohol) Don? t drink [facility] Utilities Answer Date Recorded In the [...] often do you attend chur ch or caodaism services? More than 4 times [...] and heating? Not hard at all 04/27/2022 [place] of Occupat ional Health - Occupational Stress [...] your living situation today? I have a [facility] place to live 08/25/2023 Education Answer Date Recorded What is the highest level of school you have completed or the highest degree you have received? Bachelor's degree (e.g., BA, AB, BS) 11/11/2020 Sex and Gender Information Value Date Recorded Sex Assigned at Male 02/12/2021 6:18 PM TRAFFIC CONTROL SIGNALER Gender Identity Male 11/11/2020 11:30 AM CDT [...] Gomes M.D., Ph.D. CT CT Job ID: [id number] documented in this encounter Plan of Treatment Upcoming Encounters Date Type Department Care Team (Latest Contact Info) Description 10/16/2023 11:00 AM CDT Appointment Division of Gastroenterology in [place], [place] [address] [place] [phone] Marv Myrick M.D., M.P.H. [address] [place] [phone] Discharge Disposition: Home or Self Care 11/10/2023 8:00 AM CDT Appointment Department of Laboratory Medicine and Pathology, [facility] in [place], [place] [address] [place] [phone] Marv Myrick M.D., M.P.H. [address] [place] [address] 11/10/2023 3:00 PM CDT Office Visit Division of Gastroenterology in [place], [place] [address] [place] [phone] Marv Myrick M.D., M.P.H. [address] [place] [phone] documented as of this encounter Visit Diagnoses Diagnosis Chronic Liver Disease- Primary documented in this encounter Care Teams Sap Treasury Consultant Relationship Specialty Start Date End Date Elsewhere, Pcp PCP - General Internal Medicine 08/19/21 documented as of this encounter
--- OUTSIDE RECORDS SUMMARY | 2023-09-26 12:25 | XMS_ITS | Encounter Summary ---
Author Organization [facility] Address [address] [place] [address] Care Team Providers Care Time Piece Repairer Name Role Phone Elsewhere, Pcp Primary Care Provider Unavailabl e Encounter Details Date Type Department Care Team (Latest Contact Info) Description 08/25/2023 8:09 AM CDT Anesthesia Event Division of Gastroenterology in [place], [place] [address] [place] [phone] Ken Franks APRN, SECURITIES COUNSELOR [address] [place] [phone] Anesthesia Record Procedure Summary Procedure Name Responsible Anesthesiologist Anesthesia Start Time Anesthesia Stop Time EGD (ESOPHAGEALGASTRODU ODENOSCOPY) Ken Franks APRN, SECURITIES COUNSELOR 08/25/23 0809 08/25/23 0927 Events Date Time [...] oz pur e alcohol) Don? t drink [facility] [employer] Answer Date Recorded In the past 12 months has e [employer], gas, oil, or water [employer] threatened to shut off services in your [...] often do you attend chur ch or zoroastrian services? 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 Gender Identity Male 11/11/2020 11:30 AM CDT Sexual Orientation Straight 11/11/2020 11 :30 AM CDT documented as of this encounter OR Notes * Anesthesia Postprocedure Evaluation - Ken Franks APRN, CRNA - 08/25/2023 9:41 AM CDT Patient: Niko Jennings Procedure Summary Date: 08/25/23 Room / Location: Division of Gastroenterology in [place], [place] Anesthesia Start: 808 Anesthesia Stop: 926 [...] ETT location: oral VL device: glide scope [place] scope blade size: 4 Tube size: 7 [...] EGD (ESOPHAGEALGASTRODUODENOSCOPY) Location: Division of Gastroenterology in [place], [place] Pertinent components of the patient's history [...] with patient /legal guardian or through an crime scene examiner. Risks/Benefits/Alternatives of Blood transfusion discussed with patient [...] AM CDT Appointment Division of Gastroenterology in [place], [place] [address] [place] [phone] Marv Myrick M.D., M.P.H. [address] [place] [phone] Discharge Disposition: Home or Self Care 11/10/2023 8:00 AM CDT Appointment Department of Laboratory Medicine and Pathology, [facility] in [place], [place] [address] [place] [phone] Marv Myrick M.D., M.P.H. [address] [place] [phone] 11/10/2023 3:00 PM CDT Office Visit Division of Gastroenterology in [place], [place] [address] [place] [phone] Marv Myrick M.D., M.P.H. [address] [place] [phone] documented as of this encounter Procedures Procedure [...] ETT location: oral VL device: glide scope [place] scope blade size: 4 Tube size: 7 [...] mg documented in this encounter Care Teams Time Piece Repairer Relationship Specialty Start Date End Date Elsewhere, Pcp PCP - General Internal Medicine 08/19/21 documented as of this encounter
--- OUTSIDE RECORDS SUMMARY | 2023-09-26 12:25 | XMS_ITS | Encounter Summary ---
Author Organization [facility] Address [address] [place] [address] Care Team Providers Care Holistic Nutritionist Name Role Phone Elsewhere, Pcp Primary Care [...] oz pur e alcohol) Don? t drink [facility] Utilities Answer Date Recorded In the past 12 months has [facility] electric, gas, oil, or water [employer] threatened to shut off services in your [...] often do you attend chur ch or advent services? More than 4 times per year 04/27/2022 Do you belong to any clubs o r organizations such as buddhism groups, unions, fraternal or athletic groups, or [...] and heating? Not hard at all 04/27/2022 [facility] of Occupat ional Health - Occupational [...] a [facility] place to live 08/25/2023 Education Answer Date Recorded What is the highest level of school you have completed or the highest degree you have received? 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 [address] [place] [phone] Discharge Disposition: Home or Self Care 11/10/2023 8:00 AM CDT Appointment Department of Laboratory Medicine and Pathology, [facility] in [place], [place] 200 [place] [phone] Marv Myrick M.D., M.P.H. [address] [place] [phone] 11/10/2023 3:00 PM CDT Office Visit Division of Gastroenterology in [place], [place] [address] [place] [phone] Marv Myrick M.D., M.P.H. [address] [place] [phone] documented as of this encounter Procedures Procedure [...] on filedocumented in this encounter Care Teams Holistic Nutritionist Relationship Specialty Start Date End Date Elsewhere, Pcp PCP - General Internal Medicine 08/19/21 documented as of this encounter
--- OUTSIDE RECORDS SUMMARY | 2023-09-26 12:25 | XMS_ITS | Encounter Summary ---
Author Organization [facility] Address [address] [place] [address] Care Team Providers Care Meat Cooler Name Role Phone Elsewhere, Pcp Primary Care Provider Unavailabl e Reason for Referral * Transplant (Routine) - Closed Specialty Diagnoses / Procedures Referred By Santi segundo Referred To Contact Transplant Diagnoses Hernia Inguinal Marv Myrick M.D., M.P.H. 200 [place] [phone] [facility] Referral ID Status Reason Start Date Expiration Date Visits Re quested Visits Authorized [id number] Closed 07/13/2023 01/11/2025 1 1 Encounter Details Date Type Department Care Team (Latest Contact Info) Description 07/13/2023 Orders Only Division of Gastroenterology in [place], [place] [address] [place] [phone] Marv Myrick M.D., M.P.H. [address] [place] [phone] Hernia Inguinal (Primary Dx); Alcoholic Cirrhosis Of Liver With Ascites (HCC) Social History Tobacco Use Types Packs/Day Years Used Date Smoking Tobacco: Never Smokeless Tobacco: Never Alcohol Use Standard Drinks/Week Comments Not Currently 0 (1 standard drink = 0.6 oz pur e alcohol) Don? t drink [facility] Utilities Answer Date Recorded In the past [...] often do you attend chur ch or scientology services? More than 4 times per year [...] and heating? Not hard at all 04/27/2022 [facility] of Occupat ional Health - Occupational Stress [...] your living situation today? I have a [facility] place to live 05/07/2023 Education Answer Date Recorded What is the highest level of school you have completed or the highest degree you have received? 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 [address] [place] [phone] Discharge Disposition: Home or Self Care 11/10/2023 8:00 AM CDT Appointment Department of Laboratory Medicine and Pathology, [facility] in [place], [place] [address] [place] [phone] Marv Myrick M.D., M.P.H. [address] [place] [phone] 11/10/2023 3:00 PM CDT Office Visit Division of Gastroenterology in [place], [place] [address] [place] [phone] Marv Myrick M.D., M.P.H. [address] [place] [phone] Scheduled Referrals Name Type Priority Associated Diagnoses [...] Myrick M.D., M.P.H. LAB BLOO D ADD-ON [facility] [address] [place] [address], [facility] DTL [facility] [address] [place] [address] [facility] [address] [place] [address] * (ABNORMAL) Basic Metabolic Panel (08/12/2023 11:40 [...] Myrick M.D., M.P.H. LAB BLOO D ADD-ON [facility] [address] [place] [address], [facility] [address] [place] [address] * (ABNORMAL) Hepatic Function Panel (08/12/2023 11:40 [...] Myrick M.D., M.P.H. LAB BLOO D ADD-ON [facility] 200 [place] [address], [facility] DTL [facility] 200 [place] [address] documented in this encounter Visit Diagnoses Diagnosis Hernia Inguinal- Primary Alcoholic Cirrhosis Of Liver With Ascites (HCC) documented in this encounter Care Teams Meat Cooler Relationship Specialty Start Date End Date Elsewhere, Pcp PCP - General Internal Medicine 08/19/21 documented as of this encounter
--- OUTSIDE RECORDS SUMMARY | 2023-09-26 12:25 | XMS_ITS | Encounter Summary ---
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 [address] [place] [phone] [facility] Referral ID Status Reason Start Date Expiration Date Visits Re quested Visits Authorized [id number] Closed 05/14/2023 05/13/2024 1 1 Encounter Details Date Type Department Care Team (Latest Contact Info) Description 08/12/2023 10:14 AM CDT - 08/12/2023 11:32 AM CDT Hospital Encounter Department of Radiology, [facility], in [place], [place] [address] [place] [phone] Whitney Feliciano P.A.-Mendy., P.A. 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 t drink [facility] Utilities Answer Date Recorded In the past 12 months has [employer], gas, oil, or water [email or web address] threatened to shut off services in your [...] week 04/27/2022 How often do you attend [facility] or rastafari services? More than 4 times per year 04/27/2022 Do you belong to any clubs o r organizations such as synagogue groups, unions, fraternal or athletic groups, or [...] heating? 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 [address] [place] [phone] Discharge Disposition: Home or Self Care 11/10/2023 8:00 AM CDT Appointment Department of Laboratory Medicine and Pathology, [facility] in [place], [place] [address] [place] [phone] Marv Myrick M.D., M.P.H. [address] [place] [phone] 11/10/2023 3:00 PM CDT Office Visit Division of Gastroenterology in [place], [place] [address] [place] [phone] Marv Myrick M.D., M.P.H. [address] [place] [phone] documented as of this encounter Procedures Procedure [...] left mid fibular shaft. 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
--- OUTSIDE RECORDS SUMMARY | 2023-09-26 12:25 | XMS_ITS | Encounter Summary ---
Author Organization [facility] Address [address] [place] [address] Care Team Providers Care Converter Supervisor Name Role Phone Elsewhere, Pcp Primary Care Provider Unavailabl e Encounter Details Date Type Department Care Team (Latest Contact Info) Description 08/12/2023 11:33 AM CDT - 08/12/2023 11:59 PM CDT Hospital Encounter Department of Laboratory Medicine and Pathology, [facility], in [place], [place] [address] [place] [phone] Marv Myrick M.D., M.P.H. [address] [place] [phone] Alcoholic Cirrhosis Of Liver With Ascites (HCC) Discharge Disposition: Home or Self Care Social History Tobacco Use Types Packs/Day Years Used Date Smoking Tobacco: Never Smokeless Tobacco: Never Alcohol Use Standard Drinks/Week Comments Not Currently 0 (1 standard drink = 0.6 oz pur e alcohol) Don? t drink [facility] Utilities Answer Date Recorded In the [...] any clubs o r organizations such as sabianist groups, unions, fraternal or athletic groups, or [...] and heating? Not hard at all 04/27/2022 [facility] [place] of Occupat ional Health - Occupational Stress [...] your living situation today? I have a [facility] place to live 05/07/2023 Education Answer Date Recorded What is the highest level of school you have completed or the highest degree you have received? 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 [address] [place] [phone] Discharge Disposition: Home or Self Care 11/10/2023 8:00 AM CDT Appointment Department of Laboratory Medicine and Pathology, [facility], in [place], [place] [address] [place] [phone] Marv Myrick M.D., M.P.H. [address] [place] [phone] 11/10/2023 3:00 PM CDT Office Visit Division of Gastroenterology in [place], [place] [address] [place] [phone] Marv Myrick M.D., M.P.H. [address] [place] [phone] documented as of this encounter Procedures Procedure [...] Myrick M.D., M.P.H. LAB BLOO D ADD-ON [facility] [address] [place] [address], [facility] DTL [facility] [address] [place] [address] [facility] [address] [place] [address] * (ABNORMAL) Basic Metabolic Panel (08/12/2023 11:40 [...] Myrick M.D., M.P.H. LAB BLOO D ADD-ON [address] [address], [facility] [address] [address] * (ABNORMAL) Hepatic Function Panel (08/12/2023 11:40 [...] Myrick M.D., M.P.H. LAB BLOO D ADD-ON [facility] [address] [place] [address], [facility] 200 [place] [address] documented in this encounter Visit Diagnoses Diagnosis Alcoholic Cirrhosis Of Liver With Ascites (HCC) documented in this encounter Care Teams Converter Supervisor Relationship Specialty Start Date End Date Elsewhere, Pcp PCP - General Internal Medicine 08/19/21 documented as of this encounter
--- OUTSIDE RECORDS SUMMARY | 2023-09-26 12:25 | XMS_ITS | Encounter Summary ---
Author Organization [facility] Address [address] [place] [address] Care Team Providers Care Dog Raiser Name Role Phone Elsewhere, Pcp Primary Care Provider Unavailabl e Reason for Referral * MRI/CAT/PET Scan (Routine) - Authorized Specialty Diagnoses / Procedures Referred By Santi segundo Referred To Contact Radiology Diagnoses Hernia Inguinal Bilateral Procedures CT Abdomen Pelvis with IV Contrast Elen Gomes M.D., Ph.D. [address] [place] [phone] [facility] Referral ID Status Reason Start Date Expiration Date V isits Requested Visits Authorized [id number] Authorized 08/12/2023 08/11/2024 1 1 Reason for Visit * Transplant (Routine) - Closed Specialty Diagnoses / Procedures Referred By Contjovani t Referred To Contact Transplant Diagnoses Hernia Inguinal Marv Myrick M.D., M.P.H. [address] [place] [phone] [facility] Referral ID Status Reason Start Date Expiration Date Visits Re quested Visits Authorized [id number] Closed 07/13/2023 01/11/2025 1 1 Encounter Details Date Type Department Care Team (Latest Contact Info) Description 08/12/2023 1:30 PM CDT [facility] [place], [place] 200 [place] [phone] Elen Gomes M.D., Ph.D. 200 [place] [address] Hernia Inguinal Bilateral (Primary Dx); Hernia Inguinal Social History Tobacco Use Types Packs/Day Years Used Date Smoking Tobacco: Never Smokeless Tobacco: Never Alcohol Use Standard Drinks/Week Comments Not Currently 0 (1 standard drink = 0.6 oz pur e alcohol) Don? t drink [facility] Utilities Answer Date Recorded In the past 12 months has e [employer], gas, oil, or water [employer] threatened to shut off services in your [...] any clubs o r organizations such as shinto groups, unions, fraternal or athletic groups, or [...] and heating? 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 CT CT Job ID: [id number] documented in this encounter Plan of Treatment Upcoming Encounters Date Type Department Care Team (Latest Contact Info) Description 10/16/2023 11:00 AM CDT Appointment Division of Gastroenterology in [place], [place] [address] [place] [phone] Marv Myrick M.D., M.P.H. [address] [place] [phone] Discharge Disposition: Home or Self Care 11/10/2023 8:00 AM CDT Appointment Department of Laboratory Medicine and Pathology, [facility], in [place], [place] [address] [place] [phone] Marv Myrick M.D., M.P.H. [address] [place] [phone] 11/10/2023 3:00 PM CDT Office Visit Division of Gastroenterology in [place], [place] [address] [place] [phone] Marv Myrick M.D., M.P.H. [address] [place] [phone] Scheduled Orders Name Type Priority Associated Diagnoses Orde r Schedule CT Abdomen Pelvis with IV Contrast Imaging RAD - Routine (most inpatients and all outpatients) Hernia Inguinal Bilateral Expected: 08/12/2023, Expires: 11/11/2024 documented as of this encounter Visit Diagnoses Diagnosis Hernia Inguinal Bilateral- Primary Hernia Inguinal documented in this encounter Care Teams Dog Raiser Relationship Specialty Start Date End Date Elsewhere, Pcp PCP - General Internal Medicine 08/19/21 documented as of this encounter
--- OUTSIDE RECORDS SUMMARY | 2023-09-26 12:25 | XMS_ITS | Encounter Summary ---
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 [address] [place] [phone] [facility] Referral ID Status Reason Start Date Expiration Date Visits Re quested Visits Authorized [id number] Closed 05/14/2023 05/13/2024 1 1 Encounter Details Date Type Department Care Team (Latest Contact Info) Description 08/12/2023 10:14 AM CDT - 08/12/2023 11:32 AM CDT Hospital Encounter Department of Radiology, [facility], in [place], [place] [address] [place] [address] Whitney Feliciano P.A.-C., P.A. 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 t drink [facility] Utilities Answer Date Recorded In the past 12 months has [employer], gas, oil, or water [employer] threatened to shut off services in [...] week 04/27/2022 How often do you attend [facility] or hoahaoism services? More than 4 times per year 04/27/2022 Do you belong to any clubs o r organizations such as confucianism groups, unions, fraternal or athletic groups, or [...] and heating? Not hard at all 04/27/2022 [facility] - [...] your living situation today? I have a [facility] place to live 05/07/2023 Education Answer Date Recorded What is the highest level of school you have completed or the highest degree you have received? 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 [address] [place] [phone] Discharge Disposition: Home or Self Care 11/10/2023 8:00 AM CDT Appointment Department of Laboratory Medicine and Pathology, [facility] in [place], [place] [address] [place] [phone] Marv Myrick M.D., M.P.H. [address] [place] [phone] 11/10/2023 3:00 PM CDT Office Visit Division of Gastroenterology [place], [place] [address] [place] [phone] Marv Myrick M.D., M.P.H. [address] [place] [phone] documented as of this encounter Procedures Procedure [...] Left documented in this encounter Care Teams Blooming Mill Supervisor Relationship Specialty Start Date End Date Elsewhere, Pcp PCP - General Internal Medicine 08/19/21 documented as of this encounter
--- OUTSIDE RECORDS SUMMARY | 2023-09-26 12:25 | XMS_ITS | Encounter Summary ---
Author Organization [facility] Address [address] [place] [address] Care Team Providers Care [address] Lab Technician Name Role Phone Elsewhere, Pcp Primary Care Provider Unavailabl e Reason for Referral * Outpatient (Routine) - Authorized Specialty Diagnoses / Procedures Referred By Santi t Referred To Contact Diagnoses Gastro-Esophageal Reflux Disease With Esophagitis Without Bleeding Secondary Esophageal Varices Without Bleeding (HCC) Hypertension Portal (HCC) Stricture Esophagus Procedures EGD (EsophagoGastroDuodenoscopy) Restricted Marv Myrick M.D., M.P.H. 200 [place] [phone] [facility] Referral ID Status Reason Start Date Expiration Date V isits Requested Visits Authorized [id number] Authorized 08/27/2023 08/26/2024 1 1 Encounter Details Date Type Department Care Team (Latest Contact Info) Description 08/27/2023 Orders Only Division of Gastroenterology in [place], [place] [address] [place] [phone] Fabiola Reyes M.D. 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 t drink [facility] Utilities Answer Date Recorded In the past 12 months has e [employer], oil, or water [employer] threatened to shut off services in your [...] How often do you attend chur or congregation services? More than 4 times per year 04/27/2022 Do you belong to any clubs o r organizations such as uatsdin groups, unions, fraternal or athletic groups, or [...] living situation today? I have a [facility] place to live 08/25/2023 Education Answer Date Recorded What is the highest level of school you have completed or the highest degree you have received? Bachelor's degree (e.g., BA, AB, BS) 11/11/2020 Sex and Gender Information Value Date Recorded Sex Assigned at Male 02/12/2021 6:18 PM [employer] Gender Identity Male 11/11/2020 11:30 AM CDT Sexual Orientation Straight 11/11/2020 11 :30 AM CDT documented as of this encounter Plan of Treatment Upcoming Encounters Date Type Department Care Team (Latest Contact Info) Description 10/16/2023 11:00 AM CDT Appointment Division of Gastroenterology in [place], [place] [address] [place] [phone] Marv Myrick M.D., M.P.H. [address] [place] [phone] Discharge Disposition: Home or Self Care 11/10/2023 8:00 AM CDT Appointment Department of Laboratory Medicine and Pathology, [facility] in [place], [place] [address] [place] [phone] Marv Myrick M.D., M.P.H. [address] [place] [phone] 11/10/2023 3:00 PM CDT Office Visit Division of Gastroenterology in [place], [place] [address] [place] [phone] Marv Myrick M.D., M.P.H. [address] [place] [phone] Scheduled Orders Name Type Priority Associated Diagnoses [...] Esophagus documented in this encounter Care Teams Rd Lab Technician Relationship Specialty Start Date End Date Elsewhere, Pcp PCP - General Internal Medicine 08/19/21 documented as of this encounter
--- OUTSIDE RECORDS SUMMARY | 2023-09-26 12:25 | XMS_ITS | Encounter Summary ---
Author Organization [facility] Address [address] [place] [address] Care Team Providers Care In Service Coordinator Name Role Phone Elsewhere, Pcp Primary Care Provider Unavailabl e Reason for Visit * Outpatient (Routine) - Closed Specialty Diagnoses / Procedures Referred By Contact Referred To Contact Gastroenterology and Hepatology Diagnoses Hepatitis Autoimmune (HCC) Cirrhosis Nonalcoholic (HCC) Ascites Chronic Marv Myrick M.D., M.P.H. [address] [place] [phone] [facility] Referral ID Status Reason Start Date Expiration Date Visits Re quested Visits Authorized [id number] Closed 07/07/2023 01/05/2025 1 1 Encounter Details Date Type Department Care Team (Latest Contact Info) Description 07/13/2023 12:30 PM CDT Virtual Visit Division of Gastroenterology in [place], [place] [address] [place] [phone] Marv Myrick M.D., M.P.H. [address] [place] [phone] Hepatitis Autoimmune (HCC); Cirrhosis Nonalcoholic (HCC); Ascites Chronic Social History Tobacco Use Types Packs/Day Years Used Date Smoking Tobacco: Never Smokeless Tobacco: Never Alcohol Use Standard Drinks/Week Comments Not Currently 0 (1 standard drink = 0.6 oz pur e alcohol) Don? t drink [facility] Utilities Answer Date Recorded In the past [...] often do you attend chur ch or sikhism services? More than 4 times per year [...] all 04/27/2022 [facility] - Occupational Stress [...] your living situation today? I have a [facility] place to live 05/07/2023 Education Answer Date Recorded What is the highest level of school you have completed or the highest degree you have received? 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 He was told that an inguinal [...] Moderate left hydrocele 3. Decompensated cirrhosis from [facility] in April 2023 By history, [...] AM CDT Appointment Division of Gastroenterology in [place], [place] [address] [place] [phone] Marv Myrick M.D., M.P.H. [address] [place] [phone] Discharge Disposition: Home or Self Care 11/10/2023 8:00 AM CDT Appointment Department of Laboratory Medicine and Pathology, [facility] in [place], [place] [address] [place] [phone] Marv Myrick M.D., M.P.H. [address] [place] [phone] 11/10/2023 3:00 PM CDT Office Visit Division of Gastroenterology in [place], [place] [address] [place] [phone] Marv Myrick M.D., M.P.H. [address] [place] [phone] documented as of this encounter Visit Diagnoses Diagnosis Hepatitis Autoimmune (HCC) Cirrhosis Nonalcoholic (HCC) Ascites Chronic documented in this encounter Care Teams In Service Coordinator Relationship Specialty Start Date End Date Elsewhere, Pcp PCP - General Internal Medicine 08/19/21 documented as of this encounter
--- OUTSIDE RECORDS SUMMARY | 2023-09-26 12:25 | XMS_ITS | Encounter Summary ---
Author Organization [facility] Address [address] [place] [address] Care Team Providers Care Dog Warden Name Role Phone Elsewhere, Pcp Primary Care Provider Unavailabl e Reason for Visit * Reason Comments Food Bolus Encounter Details Date Type Department Care Team (Late st Contact Info) Description 08/24/2023 10:17 PM CDT - 08/28/2023 1:11 PM CDT Hospital Encounter [facility], [facility], [facility], Sixth Floor [address] [place] [phone] Yao Yoon M.D. [address] [place] [phone] Zachary Romano M.D. [address] [place] [phone] Roya Aldridge M.D. [address] [place] [phone] Jovani Salomon M.D. [address] [place] [phone] Gypsy Lu M.D. 200 [place] [phone] Amol White M.D. 200 [place] [address] Xin Rai M.B.B.S. 200 [place] [address] Pneumonia (Primary Dx); Food In Esophagus Causing Other Injury Initial; Acidosis Lactic Discharge Disposition: Home or Self Care Social History Tobacco Use Types Packs/Day Years Used Date Smoking Tobacco: Never Smokeless Tobacco: Never Alcohol Use Standard Drinks/Week Comments Not Currently 0 (1 standard drink = 0.6 oz pur e alcohol) Don? t drink [facility] Utilities Answer Date Recorded In the past 12 months has VHT, gas, oil, or water [employer] threatened to shut off services in your [...] week 04/27/2022 How often do you attend [facility] or church services? More than 4 times per year [...] and heating? 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 Primary Team: [...] M.D. - 08/27/2023 10:24 AM CDT RST [facility] Medicine 1 TRANSFER NOTE HOSPITAL COURSE Mr. [...] AM CDT You were discharged from the [facility] Gastroenterology B Service. Please identify this service name if you call with questions after hospitalization. * Attachments The following attachments cannot be sent through Care Everywhere. * Metronidazole (By mouth) (Citizen Of [place]) * Polyethylene Glycol 3350 (By mouth) (Citizen Of [place]) * Senna (By mouth) (Citizen Of [place]) documented in this encounter Medications at Time [...] C.NShila, M.S.N. * Alannah Moon, PharmMarcusDMarcus, R.Ph., [facility] - 08/28/2023 8:02 AM CDT Pharmacist Progress [...] medication history: Reviewed by a Pharmacist(or pharmacy helper) on 08/24 Held: cholecalciferol, empagliflozin, eplerenone, ferrous [...] ICU team Alannah Moon Pharm.D., R.Ph., BCPS [phone] * Angely Bell M.S., O.T. - 08/27/2023 [...] Jhaveri M.D. - 08/27/2023 9:28 AM CDT [facility] ICU patient progress/supervisory note Patient seen and [...] with you * Kevin Vale, Jabier.D., R.Ph., [facility] - 08/27/2023 8:54 AM CDT Pharmacist Progress [...] medication history: Reviewed by a Pharmacist(or pharmacy helper) on 08/24 Procedures(this encounter): - 6:4: EGD Neuro/Psych: RASS 0, Ox3, CAM-, pain 0 CV: NS and HD low in setting of cirrhosis, on NE. Continues statin Resp: RA s/p aspiration Neph: BL Scr ~1-1.2. Scr is at BL, UOP per intermittent charting. PPG-PPQpvlffkolpt-bvwtjyhh C equation eGFR ~55-60ml/min. ID: Afeb for [...] BID. Kevin Vale Pharm.D., R.Ph., BCCCP Pager [phone] * Dimitry Davis - 08/27/2023 8:45 AM CDT [facility] Spiritual Care Progress Note Patient: Niko Rodriguez Age:72 y.o. [id number] Reason(s) for encounter: Spiritual Care contact to introduce spiritual care service and assess for potential spiritual care needs. Summary: I was able to meet with Niko Rodriguez and his . Both appeared calm and expressed that they are optimistic about the future. They did not indicate any further needs at this time and shared their former Boiler Technician will be visiting. Spiritual Assessment Roman Catholic Identification / Spiritual Practices: Niko is Roman Catholic. Spiritual Care interventions: Introduced the role as [...] time. Chaplains can be contacted by paging [phone] ([place]) or [phone] (Marlen). * Alannah Alvarez APRN, C.N.P., M.S.N. [...] Goal blood glucose 140 - 180 mg/dL (doi:10.1056/[id number]) - POC glucose - Holding home metformin [...] admission Surrogate Decision Maker: Spouse, Esthela Rodriguez ([phone]) Plan discussed with [facility] Medicine 1 Grain Oilseed Or Pasture Grower, Dr. Lu. Please page the [facility] Medicine1 service pager with any questions. Kirk Rm MD Internal Medicine, PGY-1 Pager [phone] * Gypsy Lu M.D. - 08/27/2023 5:17 AM CDT This is a supervisory note for [facility]-1. We have discussed the history, physical exam, [...] O.T. - 08/26/2023 2:56 PM CDT 08/26/23 4235 Reason Therapy Missed Reason Therapy Missed Medical hold (Patient initiating norepinephrine and having arterial line placed on attempt in AM. Patient undergoing imaging on attempt in afternoon. OT/PT will follow up at a later date as appropriate.) * Kevin Vale, Pharm.D., R.Ph., [facility] - 08/26/2023 8:05 AM CDT Pharmacist Progress [...] medication history: Reviewed by a Pharmacist(or pharmacy helper) on 08/24 Procedures(this encounter): - 6:4: EGD Neuro/Psych: RASS 0, Ox3, CAM-, pain 0 CV: NS and HD low in setting of cirrhosis. Continues statin Resp: NC s/p aspiration Neph: BL Scr ~1-1.2. Scr is at BL, UOP per intermittent charting. UWN-VCKnjnkthsbop-tihojmtq C equation eGFR ~55-60ml/min. ID: Febrile in [...] q24h. Kevin Vale Pharm.D., R.Ph., BCCCP Pager [phone] * Kirk Victor M.D. - 08/26/2023 6:47 [...] in 1 blood culture. Flagyl restarted per Aline antibiogram. ID consulted for additional recommendations. Will [...] Goal blood glucose 140 - 180 mg/dL (doi:[id number]/[id number]) - POC glucose - Holding home metformin [...] admission Surrogate Decision Maker: Spouse, Esthela Rodriguez ([phone]) Plan discussed with [facility] Medicine 1 Grain Oilseed Or Pasture Grower, Dr. Lu. Please page the [facility] Medicine1 service pager with any questions. Kirk Rm MD Internal Medicine, PGY-1 Pager [phone] * Gypsy Lu M.D. - 08/26/2023 5:33 [...] billed separately. * Radha Danielle, D., R.Ph., [facility] - 08/25/2023 7:59 PM CDT Pharmacist Progress [...] L fluids ID: afebrile, WBC WNL. 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 GI: bili & alk phos mild elevation; history cirrhosis Endo: [facility] WNL, uses PO antidiabetics at baseline, low threshold for SSI Prophylaxis: needs DVT prophylaxis ASSESSMENT / PLAN Metronidazole not necessary; if antibiotics to continue ceftriaxone provides adequate coverage for typical aspiration concerns. Next dose would be ceftriaxone 1 g at 1400 on 08/25. Radha Danielle Pharm.D., R.Ph., BCCCP [phone] * Klaudia Frederick M.D. - 08/25/2023 1:24 [...] I reviewed his case with my supervising testing consultant Dr. Rodney Lema and anesthesia on-call. [...] Gastroenterology Fellow GI bleed team pager - [phone] documented in this encounter H&P Notes * [...] systems-based plan. * Radha Danielle, Pharm.D., R.Ph., [facility] - 08/25/2023 8:29 PM CDT Images from the original note were not included. Admission Medication History Note Adherence issues: No concerns Medication list source: Patient, Care Everywhere or chart review, and Pharmacy or dispense records Medication related information: Patient reports taking eplerenone twice daily Prior to Admission Medications Med List Status: Pharmacy Complete Set By: Radha Danielle, Pharm.D., R.Ph., [facility] at 08/25/2023 8:29 PM Taking? Last Dose [...] mg by mouth daily. Radha Danielle PharmD [phone] * Kenneth Mcnally M.D. - 08/25/2023 6:22 PM CDT Images from the original note were not included. MICU ADMISSION NOTE SUBJECTIVE CHIEF COMPLAINT Shock and respiratory failure HISTORY OF PRESENT ILLNESS Mr. Niko Rodriugez is a 72 y.o. male admitted to [...] - as above ASSESSMENT / PLAN Mr. Niko Rodriguez is [...] Goal blood glucose 140 - 180 mg/dL (doi:[id number]/[id number]) - POC glucose - Holding home metformin [...] admission Surrogate Decision Maker: Spouse, Esthela Rodriguez ([phone]) Plan discussed with [facility] Medicine 1 Grain Oilseed Or Pasture Grower, Dr. Rai. Please page the [facility] Medicine 1 service pager with any questions. Kenneth Mcnally MD Internal Medicine, PGY-1 Pager: [phone] Edited by: CHRISTINE Grullon, M[facility] Information Management Sr. Mold Changer 09/04/23 9:49 AM CDT documented in this [...] Jhaveri M.D. - 08/26/2023 11:18 AM CDT [facility] ICU Infectious diseases patient consultation/supervisory note Patient seen and examined. I agree with the history, documentation, examination, impression and recommendations as nicely outlined by Alannah Alvarez in her ID consultation note from today. Patient radha 72-year-old male from [place] with underlying autoimmune hepatitis with associated hepatic [...] aspirated steak, requiring EGD removal. He presented [facility] ED and underwent EGD food bolus [...] CDT Patient Transfer Note Patient transferred to: [facility] Accompanied by: RECREATION FACILITIES SUPERVISOR Report called? Yes Nurse receiving [facility] Belongings sent with patient? YES Current vital signs: Vitals: 08/27/23 1030 BP: 100/65 Pulse: 70 Resp: 16 Temp: 36.8 ??C SpO2: 98% Critical Care Service aware of current vital signs? YES Electronically signed by: Estelle Hernandez R.N. 08/27/23 10:38 AM CDT * Ti Gruber R.R.T., LMarcusRMarcusT., RN [facility] - 08/27/2023 6:48 AM CDT Patient is [...] Left Radial (Active) Placement Date/Time: 08/26/23 (c) 8274 Procedural Pause Completed: Yes Catheter Time Out Checklist Completed: Yes Hand Hygiene Performed Prior to Insertion: Yes Site Prep: Chlorhexidine (Preferred) Sterile Barriers Used : Cap;Gloves;Gown;Large d... Recent ABG: No results for input(s): PO2 ART, PCO2 ART, PH ART, HCO3 ART, BASE EXC ART in the last 24hours. Ti Gruber R.R.T., L.R.TMarcus, RN [facility] ICU-[facility] 08/27/23 6:48 AM CDT Electronically signed by Ti Gruber R.R.T., LMarcusR.TMarcus, RN [facility] ICU-[facility] at 08/27/2023 6:49 AM CDT * Ese [...] Left Radial (Active) Placement Date/Time: 08/26/23 (c) 8199 Procedural Pause Completed: Yes Catheter Time Out [...] PM CDT Care of patient transferred to [place] by Dr. Romano. Disposition pending Repeat lactate [...] Plan will be admission to the MICU, [facility] 1 team for close monitoring Final Diagnoses: [...] have reached out to the medical office administrator of the day to determine best level of care. 1701 [facility] I reach out to the [...] to the ED from his home in [place]. He has no family member her with him as his is up [place] and his children live in other states. [...] AM CDT Care of patient transferred to [place] by Dr. Aldridge. Disposition pending EGD for [...] AM CDT Care of patient transferred to [place] by Dr. Aldridge. Disposition pending The patient [...] MDM details included below. Refer to the MAID SUPERVISOR/PA???s note for additional details. Zachary Romano M.D. [...] AM CDT Appointment Division of Gastroenterology in [place], [place] [address] [place] [phone] Marv Myrick M.D., M.P.H. [address] [place] [address] Discharge Disposition: Home or Self Care 11/10/2023 8:00 AM CDT Appointment Department of Laboratory Medicine and Pathology, [facility], in [place], [place] [address] [place] [address] Marv Myrick M.D., M.P.H. [address] [place] [address] 11/10/2023 3:00 PM CDT Office Visit Division of Gastroenterology in [place], [place] [address] [place] [address] Marv Myrick M.D., M.P.H. [address] [place] [address] documented as of this encounter Procedures Procedure [...] LAB POCT ORDERABLES- MANUAL Performing Organization Address City/[facility]/ZIP Co de Phone Number POC [facility] 200 [place] [address], [place] [facility] POC 200 [place] [address] * Glucose, POCT (08/28/2023 8:54 AM CDT) Pathologist [facility] Glucose, POCT, B 106 70 - 140 mg/dL 08/28/2023 8:56 AM CDT P[facility] Last Intake 3-4 hours 08/28/2023 8:56 AM CDT [facility] Blood 08/28/2023 8:54 AM CDT 08/28/2023 8:56 AM CDT Unknown Provider LAB POCT ORDERABLES- MANUAL Performing Organization Address City/[facility]/ZIP Co de Phone Number POC [facility] 200 [place] [address], [place] [facility] POC [address] [place] [address] * (ABNORMAL) CBC without Differential (08/28/2023 5:05 AM CDT) Pathologist [facility] Hemoglobin 10.1(L) 13.2 - 16.6 g/dL 08/28/2023 [...] CDT Clemente Baer M.D. LAB BLOOD ADD-ON [address] [address], [place] [facility] [address] [place] [address] * (ABNORMAL) Basic Metabolic Panel (08/28/2023 5:05 AM CDT) Pathologist [facility] Potassium, S 4.0 3.6 - 5.2 mmol/L [...] CDT Clemente Baer M.D. LAB BLOOD ADD-ON Performing Organization Address City/[facility]/ZIP Co de Phone Number [facility] 200 [place] [address], [place] DTL [facility] 200 [place] [address] * (ABNORMAL) Glucose, POCT (08/27/2023 8:47 PM CDT) Glucose, POCT, B 164(H) 70 - 140 mg/dL 08/27/2023 9:05 PM CDT PCL[facility] Site Capillary 08/27/2023 9:05 PM CDT [facility] Last Intake 2-3 hours 08/27/2023 9:05 PM CDT [facility] Blood 08/27/2023 8:47 PM CDT 08/27/2023 9:05 PM CDT Unknown Provider LAB POCT ORDERABLES- MANUAL Performing Organization Address City/[facility]/ZIP Co de Phone Number POC [facility] [address] [place] [address], [place] [facility] POC [address] [place] [address] * (ABNORMAL) Glucose, POCT (08/27/2023 5:09 PM CDT) Glucose, POCT, B 181(H) 70 - 140 mg/dL 08/27/2023 5:26 PM CDT PCL[facility] Site Capillary 08/27/2023 5:26 PM CDT P[facility] Last Intake 2-3 hours 08/27/2023 5:26 PM CDT [facility] Blood 08/27/2023 5:09 PM CDT 08/27/2023 5:26 PM CDT Unknown Provider LAB POCT ORDERABLES- MANUAL POC [facility] [address] [place] [address], [place] [facility] POC [address] [place] [address] * CT Abdomen Pelvis with IV Contrast [...] LAB POCT ORDERABLES- MANUAL Performing Organization Address City/[facility]/ZIP Co de Phone Number [facility] [address] [place] [address], [place] [facility] P[facility] [address] [place] [address] * (ABNORMAL) Glucose, POCT (08/27/2023 7:54 AM CDT) Glucose, POCT, B 156(H) 70 - 140 mg/dL 08/27/2023 7:56 AM CDT PCL[facility] Blood 08/27/2023 7:54 AM CDT 08/27/2023 7:56 AM CDT Unknown Provider LAB POCT ORDERABLES- MANUAL Performing Organization Address City/[facility]/ZIP Co de Phone Number [facility] [address] [place], [place] [address] POC [address] [place] [address] * Magnesium (08/27/2023 6:07 AM CDT) Magnesium, S 1.9 1.7 - 2.3 mg/dL 08/27/2023 6:51 AM CDT DTL Blood (Blood, Venous) 08/27/2023 6:07 AM CDT 08/27/2023 6:40 AM CDT Barbara Marin M.D. LAB BLOOD ADD-ON [facility] [address] [place] [address], [place] [facility] 200 [place] [address] * (ABNORMAL) Basic Metabolic Panel (08/27/2023 6:07 [...] CDT Barbara Marin M.D. LAB BLOOD ADD-ON [facility] [address] [place] [address], [facility] [address] [place] [address] * (ABNORMAL) CBC with Differential, Blood (08/27/2023 [...] CDT Barbara Marin M.D. LAB BLOOD ADD-ON [facility] [address] [place] [address], [place] STMA [facility] [address] [place] [address] [facility] [address] [place] [address] * (ABNORMAL) Glucose, POCT (08/26/2023 5:58 PM CDT) [facility] Glucose, POCT, B 233(H) 70 - 140 mg/dL 08/26/2023 5:59 PM CDT PCLX Blood 08/26/2023 5:58 PM CDT 08/26/2023 5:59 PM CDT Unknown Provider LAB POCT ORDERABLES- MANUAL Performing Organization Address [facility] Co de Phone Number [facility] [address] [place] [address], [place] [facility] POC [address] [place] [address] * (ABNORMAL) Glucose, POCT (08/26/2023 3:41 PM CDT) Glucose, POCT, B 194(H) 70 - 140 mg/dL 08/26/2023 3:42 PM CDT PCLX Blood 08/26/2023 3:41 PM CDT 08/26/2023 3:43 PM CDT Unknown Provider LAB POCT ORDERABLES- MANUAL Performing Organization Address [facility] Co de Phone Number [facility] [address] [place] [address], [place] [facility] POC [address] [place] [address] * Bacteria / Jenna Culture, Blood #2 (08/26/2023 3:16 PM CDT) Bacteria/Taylor da Culture, Blood No growth after 5 days of incubation. 08/31/2023 5:02 PM CDT DTL Blood (Blood, Peripheral Draw) 08/26/2023 3:16 PM CDT 08/26/2023 4:13 PM CDT Comment:Specimen Source Site : Blood Kenneth Mcnally M.D. LAB MICROBIOLOGY - G ENERAL ORDERABLES Performing Organization Address [facility]/ZIP Co de Phone Number [address] [address], [address] [address] * Bacteria / Jenna Culture, Blood #1 (08/26/2023 3:06 PM CDT) Bacteria/Taylor da Culture, Blood No growth after 5 days of incubation. 08/31/2023 5:02 PM CDT DTL Blood (Blood, Peripheral Draw) 08/26/2023 3:06 PM CDT 08/26/2023 4:14 PM CDT Comment:Specimen Source Site : Blood Kenneth Mcnally M.D. LAB MICROBIOLOGY - G ENERAL ORDERABLES [facility] [address] [place] [address], [place] [facility] [address] [place] [address] * CT Chest with IV Contrast (08/26/2023 [...] intervention. 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 Small dependent material in the upper trachea [...] the upper abdomen. Mild height loss of N5rtxracicn body is most likely chronic. No aggressive [...] low-grade malignancy. Nelly ADAM CT PROCEDURES * (ABNORMAL) Glucose, POCT (08/26/2023 12:38 PM CDT) Glucose, POCT, B 171(H) 70 - 140 mg/dL 08/26/2023 12:39 PM CDT PCLX Blood 08/26/2023 12:3 8 PM CDT 08/26/2023 12:40 PM CDT Unknown Provider LAB POCT ORDERABLES- MANUAL Performing Organization Address [facility] Co de Phone Number POC [facility] [address] [place] [address], [place] [facility] [address] [place] [address] * ECG 12 Lead (08/26/2023 10:39 AM CDT) Ventricular Rate ECG/Min 57 BPM MUSE KS Interval 126 ms MUSE QRSD Interval 102 ms MUSE QT Interval 472 ms MUSE QTC Interval 459 ms MUSE P Benge 19 degrees MUSE R Benge -4 degrees MUSE T Wave Benge 17 degrees MUSE 08/26/2023 10:3 9 AM [...] KLEBER Delaney Nelly Marinelli M.D. ECG ORDERABLES Performing Organization Address City/[facility]/ZIP Co de Phone Number MUSE NA * Lactate (08/26/2023 10:35 AM CDT) Lactate, P 1.9 0.5 - 2.2 mmol/L 08/26/2023 11:14 AM CDT STMA Blood 08/26/2023 10:3 5 AM CDT 08/26/2023 11:00 AM CDT Kirk Rm M.D. LAB BLOOD NON ADD-ON [facility] [address] [place] [address], [place] [facility] [address] [place] [address] * Invasive Line (08/26/2023 10:31 AM CDT) Narrative Ese Fowler R.R.Jonny, L.R.T. - 08/26/2023 10:31 AM CDT Ese [...] none Patient tolerance of procedure: successful Gypsy M Lu M.D. PROCEDURE/MINOR SURGICAL ORDERABLES * Glucose, POCT (08/26/2023 9:09 AM CDT) Glucose, POCT, B 105 70 - 140 mg/dL 08/26/2023 9:11 AM CDT PCLX Blood 08/26/2023 9:09 AM CDT 08/26/2023 9:11 AM CDT Unknown Provider LAB POCT ORDERABLES- MANUAL POC [facility] [address] [place] [address], [place] [facility] POC [address] [place] [address] * Lactate for Sepsis with Reflex (08/26/2023 7:28 AM CDT) Lactate, P 2.2 0.5 - 2.2 mmol/L 08/26/2023 8:09 AM CDT STMA Blood (Blood, Venous) 08/26/2023 7:28 AM CDT 08/26/2023 7:42 AM CDT Kirk Rm M.D. LAB BLOOD NON ADD-ON [facility] [address] [place] [address], [place] [facility] [address] [place] [address] * Lactate (08/26/2023 4:38 AM CDT) Lactate, P 1.9 0.5 - 2.2 mmol/L 08/26/2023 5:30 AM CDT DTL Blood (Blood, Venous) 08/26/2023 4:38 AM CDT 08/26/2023 5:17 AM CDT Kenneth Mcnally M.D. LAB BLOOD NON ADD-ON [facility] [address] [place], [place] [phone] [place] [address] [facility] [address] [place] [address] * (ABNORMAL) Iron and Total Iron-Binding Capacity [...] CDT Kenneth Mcnally M.D. LAB BLOOD ADD-ON [facility] [address] [facility] 200 [place] [address] * Ferritin (08/26/2023 4:38 AM CDT) Ferritin, S 71 31 - 409 mcg/L 08/26/2023 5:50 AM CDT DTL Blood (Blood, Venous) 08/26/2023 4:38 AM CDT 08/26/2023 5:17 AM CDT Kenneth Mcnally M.D. LAB BLOOD ADD-ON [facility] [address] [place] [address] * Magnesium (08/26/2023 4:38 AM CDT) Magnesium, S 1.8 1.7 - 2.3 mg/dL 08/26/2023 5:50 AM CDT DTL Blood (Blood, Venous) 08/26/2023 4:38 AM CDT 08/26/2023 5:17 AM CDT Kenneth Mcnally M.D. LAB BLOOD ADD-ON [facility] [address] [place] [address], [place] DTL [facility] [address] [place] [address] * (ABNORMAL) Renal Function Panel (08/26/2023 4:38 AM CDT) [facility] Potassium, S 3.8 3.6 - 5.2 [...] CDT Kenneth Mcnally M.D. LAB BLOOD ADD-ON [facility] [address] [place] [address], [place] DTL [facility] [address] [place] [address] * (ABNORMAL) CBC with Differential, Blood (08/26/2023 4:38 AM CDT) [facility] Hemoglobin 9.3(L) 13.2 - 16.6 g/dL 08/26/2023 [...] CDT Kenneth Mcnally M.D. LAB BLOOD ADD-ON [facility] [address] [place] [address] * (ABNORMAL) Lactate (08/26/2023 12:02 AM CDT) Pathologist [facility] Lactate, P 2.8(H) 0.5 - 2.2 mmol/L 08/26/2023 12:58 AM CDT DTL Blood (Blood, Venous) 08/26/2023 12:02 AM CDT 08/26/2023 12:39 AM CDT Kenneth Mcnally M.D. LAB BLOOD NON ADD-ON Performing Organization Address City/[facility]/ZIP Co de Phone Number [facility] [address] [place] [address] * Patient Status (08/25/2023 9:12 PM CDT) FIO2 room air 0.21=AIR 08/25/2023 9:15 PM CDT STMA Spont. breaths/min 21 08/25/2023 9:15 PM CDT STMA Blood 08/25/2023 9:12 PM CDT 08/25/2023 9:15 PM CDT Kenneth Mcnally M.D. LAB BLOOD NON ADD-ON [facility] [address] [facility] [address] [place] [address] * (ABNORMAL) Blood Gas with Coox, Venous (08/25/2023 9:12 PM CDT) [facility] pO2, Venous, B 18 Not applicable [...] Kenneth Mcnally M.D. LAB BLOOD NON ADD-ON [facility] [address] [place] [address], [facility] [address] [place] [address] * (ABNORMAL) Lactate (08/25/2023 9:12 PM CDT) Lactate, P 3.9(H) 0.5 - 2.2 mmol/L 08/25/2023 9:29 PM CDT STMA Blood (Blood, Venous) 08/25/2023 9:12 PM CDT 08/25/2023 9:15 PM CDT Kenneth Mcnally M.D. LAB BLOOD NON ADD-ON [facility] [address] [place] [address], [place] [facility] [address] [place] [address] * (ABNORMAL) Glucose, POCT (08/25/2023 9:10 PM CDT) Glucose, POCT, B 150(H) 70 - 140 mg/dL 08/25/2023 9:13 PM CDT PCLX Site Venstick 08/25/2023 9:13 PM CDT PCLX Last Intake <1 hour 08/25/2023 9:13 PM CDT PCLX Blood 08/25/2023 9:10 PM CDT 08/25/2023 9:13 PM CDT Unknown Provider LAB POCT ORDERABLES- MANUAL Performing Organization Address City/[facility] Co de Phone Number POC [facility] [address] [place] [address], [place] PCLX [facility] [address] [place] [address] * (ABNORMAL) Lactate (08/25/2023 5:18 PM CDT) Lactate, P 3.5(H) 0.5 - 2.2 mmol/L 08/25/2023 5:57 PM CDT STMA Blood 08/25/2023 5:18 PM CDT 08/25/2023 5:43 PM CDT Vianney Escobar APRN, C.N.P., D.N.P., M.S.N. LAB BLOOD NON ADD-ON Performing Organization Address City/[facility]/ZIP Co de Phone Number [facility] [address] [place] [address], [facility] [address] [place] [address] * Critical Care (08/25/2023 5:05 PM CDT) [...] (ABNORMAL) Lactate, POCT (08/25/2023 4:08 PM CDT) [facility] Lactate, POCT 4.49(H) 0.50 - 2.20 mmol/L 08/25/2023 4:17 PM CDT PCLX Blood (Blood, Venous) 08/25/2023 4:08 PM CDT 08/25/2023 4:08 PM CDT Vianney Escobar APRN, C.N.P., D.N.P., M.S.N. LAB POCT ORDERABLES - DEVICE Performing Organization Address City/[facility]/ZIP Co de Phone Number POC [facility] [address] [place] [address], [place] [facility]X [facility] [address] [place] [address] * (ABNORMAL) Dipstick, POCT, Urine (08/25/2023 3:35 PM CDT) Glucose, POCT, U 500(A) Negative mg/dL 08/25/2023 3:36 PM CDT PCED Ketone, POCT, U Negative Negative mg/dL 08/25/2023 3:36 PM CDT PCED Specific [place], POCT, U 1.020 1.005 - 1.030 08/25/2023 [...] POCT ORDERABLES - DEVICE Performing Organization Address City/State/[facility] Co de Phone Number POC [facility] [address] [place] [address], [place] PCED [facility] [address] [place] [address] * (ABNORMAL) Dipstick, Urine (08/25/2023 3:18 PM [...] URINE ORDERABLES [facility] [address] [place], [place] [id number] [place] [address] [address] [place] [address] * Osmolality, Urine (08/25/2023 3:18 PM CDT) Osmolality, U 597 150 - 1150 mOsm/kg 08/25/2023 3:58 PM CDT DTL Urine 08/25/2023 3:18 PM CDT 08/25/2023 3:35 PM CDT Zachary Romano M.D. LAB URINE ORDERABLES Performing Organization Address City/[facility]/ZIP Co de Phone Number [facility] [address] [place], [place] [id number] [place] [address] [address] [place] [address] * pH, Random, Urine (08/25/2023 3:18 PM CDT) pH, Random, U 5.7 4.5 - 8.0 08/25/2023 3:58 PM CDT DT Urine 08/25/2023 3:18 PM CDT 08/25/2023 3:35 PM CDT Zachary Romano M.D. LAB URINE ORDERABLES [facility] [address] [place], [place] [address] [address] [place] [address] * (ABNORMAL) Microscopic Manual (08/25/2023 3:18 PM [...] M.D. LAB URINE ORDERABLES Performing Organization Address City/[facility]/[place] [address] * Bacterial Culture, Aerobic + Susceptibility, Urine (08/25/2023 3:18 PM CDT) Pathologist [facility] Urine Culture No growth after 1 day of incubation. 08/26/2023 12:32 PM CDT DTL Urine (Urine, Straight Catheter) 08/25/2023 3:18 PM CDT 08/25/2023 5:52 PM CDT Comment:Specimen Source Site : Urine Zacahry Romano M.D. LAB MICROBIOLOGY - G ENERAL ORDERABLES [facility] [address] [place] [address] * Urinalysis, with Microscopic: Urine, Straight Catheter [...] LAB URINE ORDERABLES [facility] [address] [place] [address], [place] DTL [facility] [address] [place] [address] * DX Chest AP or PA and [...] right humeral head. Vianney Escobar APRN, C.N.P., EliuP., M.S.N. IMG DIAGNOSTIC IMAGING PROCEDURES * Bacteria / Jenna Culture, Blood # 2 (08/25/2023 2:12 PM CDT) Bacteria/Taylor da Culture, Blood No growth after 5 days of incubation. 08/30/2023 3:02 PM CDT DTL Blood (Blood, Peripheral Draw) 08/25/2023 2:12 PM CDT 08/25/2023 2:26 PM CDT Comment:Specimen Source Site : Blood Viannye Escobar APRN, C.N.P., Misha.N.P., M.S.N. LAB MICROBIOLOGY - GENERAL ORDERABLES [facility] [place] [address], [place] [address] * (ABNORMAL) Hepatic Function Panel (08/25/2023 2:11 [...] 08/25/2023 2:39 PM CDT Mendy Newby APRN.N.P., Misha.N.P., M.S.N. LAB BLOOD ADD-ON Performing Organization Address City/[facility] Co de Phone Number [address] [place] [address] * (ABNORMAL) Prothrombin Time (PT) (08/25/2023 2:11 PM CDT) [facility] Prothrombin Time, P 14.9(H) 9.4 - 12.5 sec 08/25/2023 2:26 PM CDT [facility] 1.4 0.9 - 1.1 08/25/2023 2:26 PM CDT [facility] Comment: ----ADDITIONAL INFORMATION---- Standard intensity warfarin therapeutic range: 2.0 to 3.0 ?? High intensity warfarin therapeutic range: 2.5 to 3.5 Blood (Blood, Venous) 08/25/2023 2:11 PM CDT 08/25/2023 2:18 PM CDT Mendy Newby APRN.N.P., Misha.N.P., M.S.N. LAB BLOOD ADD-ON Performing Organization Address City/[facility]/ZIP Co de Phone Number [address] [place] [address] * (ABNORMAL) Basic Metabolic Panel (08/25/2023 2:11 PM CDT) Potassium, P 3.8 3.6 - 5.2 mmol/L [...] APRN C.N.P., D.N.P., M.S.N. LAB BLOOD ADD-ON [facility] [address] [place] [address], [facility] [address] [place] [address] * (ABNORMAL) CBC with Differential, Blood (08/25/2023 2:11 PM CDT) Pathologist [facility] Hemoglobin 11.9(L) 13.2 - 16.6 g/dL 08/25/2023 [...] APRN, C.N.P., D.N.P., M.S.N. LAB BLOOD ADD-ON [facility] [address] [place] [address], [place] [facility] [address] [place] [address] DHPM [facility] [address] [place] [address] * (ABNORMAL) Venous Blood Gas and Electrolytes CG8+, POCT (08/25/2023 2:10 PM CDT) [facility] Sample Site, POCT Venstick 08/25/2023 2:20 PM [...] 2:10 PM CDT 08/25/2023 1:58 PM CDT Mendy Newby APRN.N.P., Misha.N.P., M.S.N. LAB POCT ORDERABLES - DEVICE Performing Organization Address [facility]/[place] de Phone Number [facility] [address] [place] [address], [place] [facility] [address] [place] [address] [facility] [address] [place] [address] * (ABNORMAL) Lactate for Sepsis with Reflex, POCT (08/25/2023 2:10 PM CDT) Pathologist [facility] Lactate, POCT 9.95(H) 0.50 - 2.20 mmol/L 08/25/2023 2:20 PM CDT PCLX Blood (Blood, Venous) 08/25/2023 2:10 PM CDT 08/25/2023 2:10 PM CDT Mendy Newby APRN.N.P., D.N.P., M.S.N. LAB POCT ORDERABLES - DEVICE Performing Organization Address [facility]/[place] de Phone Number [facility] [address] [place] [address], [place] [facility] [address] [place] [address] * (ABNORMAL) Bacteria / Jenna Culture, Blood #1 (08/25/2023 1:58 PM CDT) Bacteria/Jenna Culture, Blood CLOSTRIDIUM PERFRINGENS Growth after 9 Hours (A) 09/13/2023 3:41 PM CDT DTL Comment: 1 of 2 Bottles, Critical Result. Bacteria/Jenna Culture, Blood STAPHYLOCOCCUS EPIDERMIDIS Growth after 18 Hours (A) 09/13/2023 3:41 PM CDT DTL Comment: 1 of 2 Bottles, Critical Result. mecA not detected. Methicillin (oxacillin)-susceptible Staphylococcus epidermidis. Possible blood culture contaminant (unless isolated from more than one blood culture draw or clinical case suggests pathogenicity). ??No antibiotic treatment is indicated for blood culture contaminants. Susceptibilities not performed per laboratory criteria. Bacteria/Jenna Culture, Blood STREPTOCOCCUS SALIVARIUS GROUP Growth after 9 Hours (A) 09/13/2023 3:41 PM CDT DTL Comment: 1 of 2 Bottles, Critical Result. Possible blood culture contaminant (unless isolated from more than one blood culture draw or clinical case suggests pathogenicity). ??No antibiotic treatment is indicated for blood culture contaminants. Susceptibilities not performed per laboratory criteria. Bacteria/Jenna Culture, Blood DERMABACTER sp Growth after 9 Hours (A) 09/13/2023 3:41 PM CDT DTL Comment: Possible blood culture contaminant (unless isolated from more than one blood culture draw or clinical case suggests pathogenicity). ??No antibiotic treatment is indicated for blood culture contaminants. Susceptibilities not performed per laboratory criteria. Bacteria/Jenna Culture, Blood PEPTONIPHILUS HAREI Growth after 9 Hours (A) 09/13/2023 3:41 PM CDT DTL Comment: 1 of 2 Bottles, Critical Result. Blood (Blood, Peripheral Draw) 08/25/2023 1:58 PM CDT 08/25/2023 2:25 PM CDT Comment:Specimen Source Site : Blood Narrative [facility] - 09/13/2023 3:41 PM CDT Received Bactec aerobic and Bactec anaerobic bottles Organism Antibiotic Method Susceptibility Clostridium perfringens Clindamycin SUSCEPTI BILITY, HUGH (MCG/ML) <=2 mcg/mL: Susceptible Clostridium perfringens Ertapenem SUSCEPTI BILITY, HUGH (MCG/ML) <=4 mcg/mL: Susceptible Clostridium perfringens Metronidazole SUSCEPTI BILITY, HUGH (MCG/ML) <=2 mcg/mL: Susceptible Clostridium perfringens Penicillin SUSCEPTI BILITY, HUGH (MCG/ML) <=0.5 mcg/mL: Susceptible Clostridium perfringens Piperacillin + Tazobactam SUSCEPTIBILITY, HUGH (MCG/ML) <=16/4 mcg/mL: Susceptible Peptoniphilus harei Clindamycin SUSCEPTIBILI TY, HUGH (MCG/ML) <=2 mcg/mL: Susceptible Peptoniphilus harei Metronidazole SUSCEPTIBILI TY, HUGH (MCG/ML) <=2 mcg/mL: Susceptible Peptoniphilus harei Penicillin SUSCEPTIBILI TY, HUGH (MCG/ML) <=0.5 mcg/mL: Susceptible Vianney Escobar APRN, C.N.P., DelN.P., M.S.N. LAB MICROBIOLOGY - GENERAL ORDERABLES Performing Organization Address City/[facility] Co de Phone Number [facility] [address] [place] [address], [place] DTL [facility] [address] [place] [address] * (ABNORMAL) Glucose, POCT (08/25/2023 1:58 PM CDT) Pathologist [facility] Glucose, POCT, B 147(H) 70 - 140 mg/dL 08/25/2023 2:15 PM CDT PCLX Site Venstick 08/25/2023 2:15 PM CDT PCLX Blood (Blood, Capillary) 08/25/2023 1:58 PM CDT 08/25/2023 1:58 PM CDT Napoleon Newby APRNNShila, Misha.N.P., M.S.N. LAB POCT ORDERABLES-MANUAL Performing Organization Address City/[facility]/ZIP Co de Phone Number POC [facility] [address] [place] [address], [place] [facility] [address] [place] [address] * ECG 12 Lead (08/25/2023 1:42 PM CDT) Pathologist [facility] Ventricular Rate ECG/Min 104 BPM MUSE QRSD Interval 86 ms MUSE QT Interval 340 ms MUSE QTC Interval 447 ms MUSE R Benge -14 degrees MUSE T Wave Benge -29 degrees MUSE 08/25/2023 1:42 PM CDT [...] occurred Reviewed by KLEBER Cervantes Napoleon Newby APRNNMarcusP., D.N.P., M.S.N. ECG ORDERABLES Performing Organization Address [facility]/[place] de Phone Number MUSE NA * (ABNORMAL) Cystatin C with [...] M.D. LAB BLOOD ADD-ON Performing Organization Address City/[facility]/ZIP Co de Phone Number [facility] [address] [place] [address], [place] DTL [facility] [place] [address] [place] [address] * (ABNORMAL) Lactate, POCT (08/25/2023 11:53 AM CDT) [facility] Lactate, POCT 2.30(H) 0.50 - 2.20 mmol/L 08/25/2023 12:03 PM CDT PCLX Blood (Blood, Venous) 08/25/2023 11:53 AM CDT 08/25/2023 11:53 AM CDT Vianney Escobar APRN, C.N.P., D.N.P., M.S.N. LAB POCT ORDERABLES - DEVICE [facility]OC [facility] [address] [place] [address], [place] [facility]CL[facility] [address] [place] [address] * (ABNORMAL) Venous Blood Gas and Electrolytes CG8+, POCT (08/25/2023 11:53 AM CDT) [facility] Sample Site, POCT Venstick 08/25/2023 12:03 PM [...] CDT 08/25/2023 11:52 AM CDT Vianney Escobar APRN C.N.P., D.N.P., M.S.N. LAB POCT ORDERABLES - DEVICE POC [facility] [address] [place] [address], [place] [facility] [address] [place] [address] [facility] [address] [place] [address] * Upper GI Endoscopy (08/25/2023 7:26 AM CDT) 08/25/2023 7:26 AM CDT Impressions [facility] - 08/25/2023 10:03 AM CDT Post-op [...] facilitate repeated passages of the scope. Narrative [facility] - 08/25/2023 10:03 AM CDT Navjot [...] oxygen saturations were monitored continuously. The ? [id number] Upper Endoscope was introduced under direct vision [...] Roya Aldridge M.D. GI PROCEDURE ORDER NOEMÍ Performing Organization Address City/State/ZIP Co in Phone Number [facility] documented in this encounter Visit Diagnoses Diagnosis [...] Minutes, Every 24 hours, First dose on Mamta 08/27/23 at 1400, Drug Monitoring Program: Pharmacist to [...] community acquired, Respiratory tract infection, community acquired 08/28/2023 5:53 AM CDT 500 mg 200 [...] On Thu08/25/23 at 1002, For 1 dose 08/25/2023 10:30 AM CDT 1,000 mL 1000 [...] 40 mg, oral, 2 times daily before morning and evening meals, First dose on Thu08/25/23 at 2115, pantoprazole [...] 1 dose, Imaging Protocol Orders, Dose per [place] Medication Guidelines Given 08/27/2023 12:29 PM CDT [...] Minutes, Every 24 hours, First dose on Mamta 08/27/23 at 1400, Drug Monitoring Program: Pharmacist to adjust medication dosing based on indication and drug clearance factors., Indications: Intra-abdominal infection, community acquired, Respiratory tract infection, community acquired 1359 (New Bag - Provider: Molly Gutiérrez RMarcusNMarcus) 1136 (New Bag - Provider: Bebe Hodgson.S.N., R.N.) cholecalciferol (vitamin D3) tablet 25 mcg 25 mcg, oral, Daily, First dose on Thu08/26/23 at 0900, cholecalciferol (vitamin D3) orderable was interchanged for cholecalciferol (vitamin D3) tablet/capsule 0845 (Given - Provider: Estelle Hernandez RAyanna.) 0801 (Given - Provider: Estelle Hernandez RMarcusN.) 0841 (Given - Provider: Bebe Hodgson.S.N., R.N.) heparin (porcine) injection 5,000 Units (CANCELED) 5,000 Units, subcutaneous, Every 8 hours scheduled, First dose on Thu08/26/23 at 0815 0845 (Given - Provider: Brynn SilvestreN.) heparin (porcine) injection 5,000 Units 5,000 Units, subcutaneous, 2 times daily, First dose (after last modification) on Thu08/26/23 at 2100 2101 (Given - Provider: Vandana Riddle R.N.) 0801 (Given - Provider: Estelle Hernandez RAyanna.)202 (Given - Provider: Ricky Ramírez R.N.) 0841 (Given - Provider: Dominique HodgsonS.NMarcus, R.N.) insulin aspart U-100 injection 0-13 Units [...] not met)1247 (Given - Provider: Estelle Hernandez RKlever)1759 (Given - Provider: Estelle Hernandez R.N.) 0755 (Given - Provider: Estelle Hernandez R.N.)1146 (Given - Provider: Molly Gutiérrez R.N. - Comment: [facility] [place])1716 (Given - Provider: Molly Gutiérrez R.N. - Comment: [facility] [place]) 0901 (Not Given - Provider: Zenaida Hodgson, R.N. - Reason: Order parameters not met)1236 [...] 0645 (New Bag - Provider: Jayda Bradley R.N.) lactulose solution 10 g (CHRONULAC) 10 g, oral, 3 times daily, First dose on Thu08/27/23 at 1400, Titrate to 3 bm daily 1305 (Given - Provider: Molly Gutiérrez R.N.)2018 (Not Given - Provider: Ricky Ramírez RKlever - Reason: Patient/family refused) 0910 (Not Given [...] RKlever)1257 (New Bag - Provider: Estelle Hernandez RMarcusN.)2117 (New Bag - Provider: Vandana Riddle RMarcusN.) 0456 (New Bag - Provider: Vandana Riddle R.N.) metroNIDAZOLE in NaCl (iso osm) IVPB 500 mg (FLAGYL) (CANCELED) 500 mg, intravenous, at 200 mL/hr, Administer over 30 Minutes, Every 8 hours, First dose on Thu08/27/23 at 1300, Indications: Intra-abdominal infection, community acquired, Respiratory tract infection, community acquired 1305 (New Bag - Provider: Molly Gutiérrez R.N.)2030 (New Bag - Provider: Ricky Ramírez R.N.) 0553 (New Bag - Provider: Ricky Ramírez R.N.) metroNIDAZOLE tablet 500 mg (FLAGYL) 500 mg, oral, 3 times daily, First dose on Thu08/28/23 at 1400, Indications: Blood stream infection pantoprazole DR tablet 40 mg (PROTONIX) 40 mg, oral, 2 times daily before morning and evening meals, First dose on Thu08/25/23 at 2115, pantoprazole 40 mg oral daily was interchanged for omeprazole 20 or 40 mg oral daily Swallow whole. Do NOT crush, chew, or split tablet. 0612 (Given - Provider: Jayda Bradley R.N.)1534 (Given - Provider: Estelle Hernandez R.N.) 0646 (Given - Provider: Vandana Riddle RMarcusN.)1714 (Given - Provider: Brynn SosaNMarcus) 0601 (Given - Provider: Ricky Ramírez RMarcusNMarcus) polyethylene glycol powder packet 17 g (MIRALAX) 17 g, oral, Daily, First dose on Thu08/26/23 at 0900, Ordered sequence of administration: polyethylene glycol, then bisacodyl until BM achieved. Avoid mixing with starch-based thickened liquids. 0846 (Not Given - Provider: Estelle Hernandez RAyanna. - Reason: Patient/family refused) 0801 (Given - Provider: Estelle Hernandez RMarcusN.) 0841 (Given - Provider: Zenaida Hodgson, R.N.) potassium chloride ER tablet 40 mEq (KLORCON/K-TAB) (COMPLETED) 40 mEq, oral, Once, On Thu08/27/23 at 0745, For 1 dose, For K 3-3.4 mEq/L - give total of 40 mEq Swallow whole. Do NOT crush, chew, or split tablet., Monitor the following for replacement: Potassium, Replace Potassium per: Standard Schedule 0742 (Given - Provider: Estelle Hernandez RMarcusNMarcus) rosuvastatin tablet 20 mg (CRESTOR) 20 mg, oral, Daily at bedtime, First dose on Thu08/25/23 at 2115 2101 (Given - Provider: Vandana Riddle RMarcusN.) 2020 (Given - Provider: Ricky Ramíerz RMarcusN.) sennosides-docusate sodium 8.6-50 mg per tablet 1 tablet (SENOKOT-S) (CANCELED) 1 tablet, oral, 2 times daily, First dose on Thu08/26/23 at 0900, Do not give if patient has diarrhea. 0845 (Given - Provider: Estelle Hernandez R.N.)2100 (Given - Provider: Vandana Riddle R.N.) 08 (Given - Provider: Estelle Hernandez R.N.) sennosides-docusate sodium 8.6-50 mg per tablet 2 tablet (SENOKOT-S) 2 tablet, oral, 2 times daily, First dose (after last modification) on Thu08/27/23 at 2100, Do not give if patient has diarrhea. 2016 (Not Given - Provider: Ricky Ramírez RMarcusN. - Reason: Patient/family refused) 0841 (Given - Provider: Zenaida Hodgson, R.N.) sodium chloride (PF) 0.9 % injection 1-100 mL (COMPLETED) 1-100 mL, intravenous, Once, On Thu08/26/23 at 1430, For 1 dose, Imaging Protocol Orders, Dose per [facility] Medication Guidelines 1406 (Not Given - Provider: Love Arreguin RMarcusNMarcus - Reason: Other - Comment: per protocol) 1229 (Given - Provider: Isauro Spear R.NMarcus) sodium chloride (PF) 0.9 % injection 1-100 [...] Catheter, when no infusion to maintain patency 0911 (Given - Provider: Estelle Hernandez RMarcusNMarcus)211 (Given - Provider: Vandana Riddle RMarcusNMarcus) 0801 (Given - Provider: Estelle Hernandez R.N.)2021 (Given - Provider: Ricky Ramírez R.N.) 0842 (Given - Provider: Zenaida Hodgson, R.N.) vancomycin in NaCl 0.9% IVPB 1,250 [...] Hernandez R.N.)1044 (Rate/Dose Change - Provider: Estelle J Haak, R.N.)1057 (Rate/Dose Change - Provider: Estelle Hernandez R.N.)1100 (Rate/Dose Verify - Provider: Estelle Hernandez R.N.)1200 (Rate/Dose Verify - Provider: Estelle Hernandez R.N.)1300 (Rate/Dose Verify - Provider: Estelle Hernandez R.N.)1400 (Rate/Dose Verify - Provider: Estelle Hernandez R.N.)1425 (Rate/Dose Change - Provider: Estelle Hernandez R.N.)1500 (Rate/Dose Verify - Provider: Estelle Hernandez R.N.)1550 (Rate/Dose Change - Provider: Estelle Hernandez R.N.)1600 (Rate/Dose Verify - Provider: Estelle Hernandez R.N.)1700 (Rate/Dose Change - Provider: Estelle Hernandez R.N.)1800 (Rate/Dose Verify - Provider: Estelle Hernandez R.N.)1808 (Rate/Dose Change - Provider: Estelle Hernandez, R.N.)1900 (Rate/Dose Verify - Provider: Estelle Hernandez, R.N.)2000 (Rate/Dose Verify - Provider: Vandana Riddle, R.N.)2016 (Rate/Dose Change - Provider: Vandana Riddle, R.N.)2100 (Rate/Dose Verify - Provider: Vandana Riddle, R.N.)2123 (New Bag - Provider: Vandana Riddle, R.N.)2200 (Rate/Dose Verify - Provider: Vandana Riddle, R.N.)2300 (Rate/Dose Verify - Provider: Vandana Riddle, R.N.)2330 (Stopped - Provider: Vandana Riddle, R.N.) 0052 (Restarted - Provider: Vandana Riddle, R.N.)0100 (Rate/Dose Verify - Provider: Vandana iRddle, R.N.)0200 (Rate/Dose Verify - Provider: Vandana Riddle, R.N.)0300 (Rate/Dose Verify - Provider: Vandana Riddle, R.N.)0400 (Rate/Dose Verify - Provider: Vandana Riddle R.N.)0500 (Rate/Dose Verify - Provider: Vandana Riddle R.N.)0555 (Stopped - Provider: Vandana Riddle R.N.) PRN Medication Order 08/26/2023 08/27/2023 08/28/2023 iohexoL 300 mg iodine/mL solution 1-200 mL (OMNIPAQUE) (COMPLETED) 1-200 mL, intravenous, Once in imaging, contrast, Starting on Mamta 08/27/23 at 1228, For 1 dose, Imaging Protocol Orders, Dose per [facility] Medication Guidelines 1228 (Given - Provider: Isauro Spear R.N. - Comment: [id number]) iopromide 300 mg iodine/mL injection 1-200 mL (ULTRAVIST) (COMPLETED) 1-200 mL, intravenous, Once in imaging, contrast, Starting on Thu08/26/23 at 1402, For 1 dose, Imaging Protocol Orders, Dose per [facility] Medication Guidelines 1402 (Given - Provider: Love Arreguin R.N. - Comment: [id number]) ipratropium-albuteroL 0.5-2.5 mg/3 mL nebulizer solution 3 mL (DUONEB) 3 mL, nebulization, 4 times daily PRN, wheezing, shortness of breath, Starting on Thu08/25/23 at 2121 sodium chloride 0.9 % injection 10 mL 10 mL, intravenous, As needed, line care, Starting on Thu08/25/23 at 2053, Peripheral Intravenous Catheter and Rapid Infusion Catheter, prior to blood sampling, post blood transfusion or post blood sampling 1403 (Given - Provider: Love Arreguin R.N.) sodium chloride 0.9 % injection 3 mL 3 mL, intravenous, As needed, line care, Starting on Thu08/25/23 at 205, Prior to and following infusion and between multiple consecutive infusions: sodium chloride 0.9 % injection documented in this encounter Care Teams Dog Warden Relationship Specialty Start Date End Date Elsewhere, Pcp PCP - General Internal Medicine 08/19/21 documented as of this encounter
--- OUTSIDE RECORDS SUMMARY | 2023-09-26 12:25 | XMS_ITS | Encounter Summary ---
Author Organization [facility] Address [address] [place] [address] Care Team Providers Care Wind Tunnel Mechanic Name Role Phone Elsewhere, Pcp Primary Care [...] Recorded In the past 12 months has [facility] electric, gas, oil, or water [employer] threatened to shut off services in your [...] often do you attend chur ch or worship services? More than 4 times per year [...] and heating? Not hard at all 04/27/2022 [facility] - [...] your living situation today? I have a [facility] place to live 08/25/2023 Education Answer Date Recorded What is the highest level of school you have completed or the highest degree you have received? 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 [address] [place] [phone] Discharge Disposition: Home or Self Care 11/10/2023 8:00 AM CDT Appointment Department of Laboratory Medicine and Pathology, [facility] in [place], [place] [address] [place] [address] Marv Myrick M.D., M.P.H. [address] [place] [phone] 11/10/2023 3:00 PM CDT Office Visit Division of Gastroenterology in [place], [place] [address] [place] [phone] Marv Myrick M.D., M.P.H. [address] [place] [phone] documented as of this encounter Procedures Procedure [...] on filedocumented in this encounter Care Teams Wind Tunnel Mechanic Relationship Specialty Start Date End Date Elsewhere, Pcp PCP - General Internal Medicine 08/19/21 documented as of this encounter
--- OUTSIDE RECORDS SUMMARY | 2023-09-26 12:26 | XMS_ITS | Encounter Summary ---
Author Organization [facility] Address [address] [place] [address] Care Team Providers Care Welfare Director Name Role Phone Elsewhere, Pcp Primary Care Provider Unavailabl e Reason for Referral * Outpatient (Routine) - Closed Specialty Diagnoses / Procedures Referred By Santi segundo Referred To Contact Diagnoses Hepatitis Autoimmune (HCC) Cirrhosis Nonalcoholic (HCC) Ascites Chronic Procedures US Paracentesis with Imaging Guidance Marv Myrick M.D., M.P.H. [address] [place] [address] [facility] Referral ID Status Reason Start Date Expiration Date Visits Re quested Visits Authorized [id number] Closed 07/07/2023 07/06/2024 1 1 Reason for Visit * Outpatient (Routine) - Closed Specialty Diagnoses / Procedures Referred By Santi segundo Referred To Contact Diagnoses Hepatitis Autoimmune (HCC) Cirrhosis Nonalcoholic (HCC) Ascites Chronic Procedures US Paracentesis with Imaging Guidance Marv Myrick M.D., M.P.H. 200 [place] [address] [facility] Referral ID Status Reason Start Date Expiration Date Visits Re quested Visits Authorized [id number] Closed 07/07/2023 07/06/2024 1 1 Encounter Details Date Type Department Care Team (Latest Contact Info) Description 07/10/2023 1:56 PM CDT - 07/10/2023 3:28 PM CDT Hospital Encounter Department of Radiology, [facility], in [place], [place] [address] [place] [address] Marv Myrick M.D., M.P.H. [address] [place] [address] Hepatitis Autoimmune (HCC); Cirrhosis Nonalcoholic (HCC); Ascites Chronic Discharge Disposition: Home or Self Care Social History Tobacco Use Types Packs/Day Years Used Date Smoking Tobacco: Never Smokeless Tobacco: Never Alcohol Use Standard Drinks/Week Comments Not Currently 0 (1 standard drink = 0.6 oz pur e alcohol) Don? t drink [facility] Utilities Answer Date Recorded In the past 12 months has [employer], gas, oil, or water [employer] threatened to shut off services in your [...] How often do you attend [facility] or nondenominational services? More than 4 times per year 04/27/2022 Do you belong to any clubs o r organizations such as cheondoism groups, unions, fraternal or athletic groups, or [...] and heating? Not hard at all 04/27/2022 [facility] - [...] living situation today? I have a [facility] place to live 05/07/2023 Education Answer Date Recorded What is the highest level of school you have completed or the highest degree you have received? 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 [address] [place] [address] Discharge Disposition: Home or Self Care 11/10/2023 8:00 AM CDT Appointment Department of Laboratory Medicine and Pathology, [facility] in [place], [place] [address] [place] [address] Marv Myrick M.D., M.P.H. [address] [place] [phone] 11/10/2023 3:00 PM CDT Office Visit Division of Gastroenterology in [place], [place] [address] [place] [address] Marv Myrick M.D., M.P.H. [address] [place] [phone] documented as of this encounter Procedures Procedure [...] This test has been modified from the import/export clerk's instructions. Its performance characteristics were determined by [facility] in a manner consistent with CLIA requirements. This test has not been cleared or approved by the U.S. Food and Drug Administration. Neutrophils 7 % 07/10/2023 5:10 PM CDT [facility] Comment: ----REFERENCE VALUE---- Synovial: <25% Peritoneal: <25% Pleural: <25% Pericardial: <25% Lymphocytes 17 Synovial <75% % 07/10/2023 5:10 PM CDT PM Monocytes/Macropha ges 67 Synovial <70% % 07/10/2023 5:10 PM CDT PM Eosinophils 1 % 07/10/2023 5:10 PM CDT [facility] Comment: ----REFERENCE VALUE---- The reference range and other method performance specifications have not been established for this bodyfluid. The test result must be integrated into the clinical context for interpretation. Other Cells 8 % 07/10/2023 5:10 PM CDT [facility] Comment: ----REFERENCE VALUE---- The reference range and other method performance specifications have not been established for this bodyfluid. The test result must be integrated into the clinical context for interpretation. Other Cells Are: See Comment 07/11/2023 8:12 AM CDT [facility] Comment:Mesothelial cells Comment See Comment 07/11/2023 8:12 AM CDT [facility] Comment:No blasts or maligna nt cells seen. Reviewed by: Pipo 07/11/2023 8:12 AM CDT [facility] Fluid (Peritoneal Fluid) 07/10/2023 2:53 PM CDT Marv Myrick M.D., M.P.H. LAB BODY FLUIDS AND STOOLS ORDERABLES [facility] [address] [place] [address], [facility] [address] [place] [address] * Bacterial Culture, Aerobic + Susceptibility (07/10/2023 2:53 PM CDT) Bacterial Culture, Aerobic + Susc No growth after 5 days of incubation. 07/15/2023 10:53 AM CDT DTL Fluid (Peritoneal Fluid) 07/10/2023 2:53 PM CDT Narrative [facility] - 07/15/2023 10:53 AM CDT Bacterial Culture: Received Bactec aerobic and Bactec anaerobic bottles Marv Myrick M.D., M.P.H. LAB MICR OBIOLOGY - GENERAL ORDERABLES [facility] [address] [place] [address], [facility] DTL [facility] [address] [place] [address] documented in this encounter Visit Diagnoses Diagnosis [...] er: Juan F Valles M.D. - Comment: RUQ) documented in this encounter Care Teams Welfare Director Relationship Specialty Start Date End Date Elsewhere, Pcp PCP - General Internal Medicine 08/19/21 documented as of this encounter
--- OUTSIDE RECORDS SUMMARY | 2023-09-26 12:26 | XMS_ITS | Clinical Summary ---
Author Organization [facility] Address [place], [place] [address] Care Team Providers Care Automated Weaver Name Role Phone Fay Virk DO Primary Care Provider [phone] Allergies Active Allergy Reactions Criticality Noted Date [...] Type Department Care Team Description 09/01/2023 Refill [facility] [address] [place] [address] Fay Virk DO Refill Request (Furosemide) 08/28/2023 Refill [facility] [address] [place] [address] Fay Virk DO Refill Request (Metformin, Furosemide, Rosuvastatin) 06/29/2023 10:30 AM CDT Office Visit [facility] [address] [place] [address] Jay Cha MD Consult (abdominal wall hernia) 06/29/2023 Travel 06/29/2023 Refill [facility] [address] [place] [address] Fay Virk DO Refill Request (Metformin, Furosemide) from Last 3 Months Immunizations Name Administration [...] booster 09/01/2021 09/02/2011, 12/01/2007 COVID-19 vaccine series (2022- season) 2022 09/18/2021, 03/20/2021, 06/22/2020, Additional history [...] Procedure Name Priority Date/Time Associated Diagnosis Comments LC LIPID PANEL Routine 05/12/2022 8:33 AM MINE INSPECTOR FEDERAL Type 2 diabetes mellitus with hyperglycemia, without long-term current use of insulin (HC) from Last 3 Months or Most Recently Relevant to Health Maintenance Results * LC LIPID PANEL (05/12/2022 8:33 AM MINE INSPECTOR FEDERAL) Cholesterol, Total 134 100 - 199 mg/dL 05/15/2022 12:06 AM MINE INSPECTOR FEDERAL [facility] Triglycerides 105 0 - 149 mg/dL 05/15/2022 12:06 AM [facility] HDL Cholesterol 58 >39 mg/dL 02/23/202 3 12:06 AM [facility] VLDL Cholesterol Leo 19 5 - 40 mg/dL 05/15/2022 12:06 AM [facility] LDL Chol Calc (NIH) 57 0 - 99 mg/dL 05/15/2022 12:06 AM [facility] ([facility]ET) Blood BLOOD SPECIMEN / Unknown Venipuncture / Unknown 05/12/2022 8:33 AM MINE INSPECTOR FEDERAL 05/12/2022 8:33 AM MINE INSPECTOR FEDERAL Narrative [facility] - 05/15/2022 12:06 AM MINE INSPECTOR FEDERAL Performed at: ??01 - [facility] [place] [address] [place] [address] ??[phone] Marine Meteorologist: Jean-Paul Salazar MD, Phone: ??[phone] Fay Virk DO SEND OUTS [facility] ([facility]) [address] [place] [address] from Last 3 Months or Most Recently Relevant to Health Maintenance Care Teams Automated Weaver Relationship Specialty Start Date End Date Fay Virk DO [address] [place] [address] PCP - General Family Practice 06/11/20
--- OUTSIDE RECORDS SUMMARY | 2023-09-26 12:26 | XMS_ITS | Encounter Summary ---
Author Organization [facility] Address [address] [place] [address] Care Team Providers Care Openstack Developer Name Role Phone Elsewhere, Pcp Primary Care Provider Unavailabl e Encounter Details Date Type Department Care Team (Late st Contact Info) Description 01/21/2016 Historical Ophthalmology [facility] Jemal Almeida M.D. 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 [address] [place] [address] Discharge Disposition: Home or Self Care 11/10/2023 8:00 AM CDT Appointment Department of Laboratory Medicine and Pathology, [facility] in [place], [place] [address] [place] [address] Marv Myrick M.D., M.P.H. [address] [place] [phone] 11/10/2023 3:00 PM CDT Office Visit Division of Gastroenterology in [place], [place] [address] [place] [address] Marv Myrick M.D., M.P.H. [address] [place] [address] documented as of this encounter Visit Diagnoses Not on filedocumented in this encounter Additional Health Concerns Infection Onset Date Last Indicated Resolved Time COVID19 Pending 02/11/2021 02/11/2021 02/11/2021 3 :10 PM COTTON BALL MACHINE TENDER COVID19 Pending 04/14/2021 04/14/2021 04/14/2021 2 :15 PM COTTON BALL MACHINE TENDER COVID19 Pending 04/14/2021 04/15/2021 04/15/2021 1 0:43 PM COTTON BALL MACHINE TENDER COVID19 Pending 08/05/2021 08/05/2021 08/05/2021 4 :09 PM CDT COVID19 Pending 10/23/2021 10/23/2021 10/23/2021 3 :08 PM CDT COVID19 Pending 09/09/2023 09/10/2023 09/10/2023 2 :15 AM CDT documented as of this encounter Care Teams Openstack Developer Relationship Specialty Start Date End Date Elsewhere, Pcp PCP - General Internal Medicine 08/19/21 documented as of this encounter
--- OUTSIDE RECORDS SUMMARY | 2023-09-26 12:26 | XMS_ITS | Data Portability ---
Author Organization [facility] Address [address] [place] [address] Care Team Providers Care Nailer Hand Name Role Phone TATYANA VIRK Primary Care Provider Assessment Encounter Date Assessment Date Assessment LastModified [...] total replacement of hip completed Radha vega [facility] 06/24/2023 11:54:12 03/23/19 09 procedure on shoulder completed Radha vega [facility] 06/24/2023 11:54:06 Appendectomy completed Radha vega [facility] 06/24/2023 11:54:23 Imaging Results Imaging Date [...] Name and Address Organization Details Recorded Time 476292 Tylenol medicatio n Not available Not available Not available 06/24/202375082 3 RxNorm Radha segundo [facility] 4 11:51:59 [id number] Celebrex medicatio n Not available Not available Not available 06/24/2023 76531 7 RxNorm Radha Bernalbarbaragregory ratna [facility] 4 11:52:05 Medications Name Sig Start [...] Updated DateTime 06/24/2023 172.72 cm 21.3 kg/m2 32999.93 g Radha Bella [facility] 06/24/2023 11:47:54 Social History Question Answer Notes LastModified by Organizat ion Details LastModified Time Tobacco Smoking Status Never Smoker Radha vega [facility] 06/24/2023 11:53:39 What Is Your Level [...] Nicotine? No Information not available 06/24/2023 Sex: Unknown Functional Status None recorded. Mental Status None recorded. Family History Relationship Description Onset Age of this Age Resolved Age Notes Father No current problems or disability Mother No current problems or disability Medical History Condition Response Sexually Transmitted Infection N Diabetes Y Other N Bleeding Disorder N High Blood Pressure N Kidney Stones N High Cholesterol Y GERD/Acid Reflux Y Heart Disease N Cancer N Depression N Lung Disease N Immunizations Vaccine Type Date Status Provider Name and Address Organization Details Recorded Time Influenza, high-dose, quadrivalent, PF 11/21/2021 completed Radha vega [facility] 06/24/2023 11:47:59 Influenza, adjuvanted, quadrivalent, PF 12/24/2020 completed Radha Jena null, [facility] 06/24/2023 11:47:59 COVID-19, mRNA, LNP-S, PF, 100 mcg/0.5mL dose or 50 mcg/0.25mL dose 05/23/2020 completed Radha Jena null, [facility] 06/24/2023 11:47:59 COVID-19, mRNA, LNP-S, PF, 100 mcg/0.5mL dose or 50 mcg/0.25mL dose 06/22/2020 completed Radha Doloresquist null, [facility] 06/24/2023 11:47:59 COVID-19, mRNA, LNP-S, PF, 100 mcg/0.5mL dose or 50 mcg/0.25mL dose 09/18/2021 completed Radha Jena null, [facility] 06/24/2023 11:47:59 COVID-19, mRNA, LNP-S, PF, 100 mcg/0.5mL dose or 50 mcg/0.25mL dose 03/20/2021 completed Radha Jena null, [facility] 06/24/2023 11:47:59 Influenza, split virus, trivalent, PF 12/22/2007 completed Radha Jena null, [facility] 06/24/2023 11:47:59 Past Encounters Encounter ID Performer Location Encounter Start Date Encounter Closed Date Diagnosis/Indication Diagnosis SNOMED-CT Code [id number] Emir Leo MD [facility] [address] [place] [id number] 06/24/2023 11:16:24 06/26/2023 08:55:19 Swelling of scrotum [id number] Pain in scrotum 31939445 Umbilical hernia 7427414 07 Health Concerns Section Related Observation LastModified by Organization Detai ls LastModified Time None Recorded Concern Status LastModified by Organization Details LastModified Time None Recorded Advance Directives Directive None Recorded Payers Encounter Date Sequence Insurance Name Policy Number Policy Bello Covered Member ID Bello Member ID Guarantor Name 06/24/2023 1 MED[place]ARE [place]: W[place]rian [facility] Niko Jennings [id number] Niko Jennings 06/24/2023 2 [id number] [id number] Niko Jennings [id number] Niko Jennings Notes Date Note Type Note Provider Name and Address Organization Details Recorded Time 06/24/2023 text/html HPI Notes: Mr. Jennings is a 72 yoM with a complex medical history who is referred to me by his PCP, Dr. Tatyana Virk, regarding chronic scrotal swelling. Patient was worked up at [facility] where he underwent a dorsal slit [...] this location. Patient seeing Dr. Cha of [facility] next week for consultation on umbilical hernia. Emir Leo MD [address], [place], [address], [place] [facility] 06/24/2023 23:35:22
--- OUTSIDE RECORDS SUMMARY | 2023-09-26 12:26 | XMS_ITS | Encounter Summary ---
Author Organization [facility] Address [address] [place] [address] Care Team Providers Care Industrial Psychologist Name Role Phone Elsewhere, Pcp Primary Care Provider Unavailabl e Reason for Referral * Outpatient (Routine) - Closed Specialty Diagnoses / Procedures Referred By Contac t Referred To Contact Diagnoses Hepatitis Autoimmune (HCC) Cirrhosis Nonalcoholic (HCC) Ascites Chronic Procedures US Paracentesis with Imaging Guidance Marv Myrick M.D., M.P.H. [address] [place] [address] [facility] Referral ID Status Reason Start Date Expiration Date Visits Re quested Visits Authorized [id number] Closed 07/07/2023 07/06/2024 1 1 * Outpatient (Routine) - Closed Specialty Diagnoses / Procedures Referred By Contact Referred To Contact Gastroenterology and Hepatology Diagnoses Hepatitis Autoimmune (HCC) Cirrhosis Nonalcoholic (HCC) Ascites Chronic Marv Myrick M.D., M.P.H. [address] [place] [address] [facility] Referral ID Status Reason Start Date Expiration Date Visits Re quested Visits Authorized [id number] Closed 07/07/2023 01/05/2025 1 1 Reason for Visit * Reason Onset Date Comments Hepatobiliary 07/07/2023 Order Request 07/07/2023 Encounter Details Date Type Department Care Team (Latest Contact Info) Description 07/07/2023 Clinical Communication Division of Gastroenterology in [place], [place] [address] [place] [address] Marv Myrick M.D., M.P.H. [address] [place] [phone] Hepatobiliary; Order Request Social History Tobacco Use Types Packs/Day Years Used Date Smoking Tobacco: Never Smokeless Tobacco: Never Alcohol Use Standard Drinks/Week Comments Not Currently 0 (1 standard drink = 0.6 oz pur e alcohol) Don? t drink [facility] [employer] Answer Date Recorded In the past 12 months has [employer], gas, oil, or water [employer] threatened to shut off services in your [...] often do you attend chur ch or mosque services? More than 4 times per year [...] heating? Not hard at all 04/27/2022 [facility] - Occupational Stress Questionnaire Answer Date Recorded [...] your living situation today? I have a [facility] place to live 05/07/2023 Education Answer Date Recorded What is the highest level of school you have completed or the highest degree you have received? 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 [address] [place] [phone] Discharge Disposition: Home or Self Care 11/10/2023 8:00 AM CDT Appointment Department of Laboratory Medicine and Pathology, [facility] in [place], [place] [address] [place] [address] Marv Myrick M.D., M.P.H. [address] [place] [phone] 11/10/2023 3:00 PM CDT Office Visit Division of Gastroenterology in [place], [place] [address] [place] [phone] Marv Myrick M.D., M.P.H. [address] [place] [phone] Scheduled Referrals Name Type Priority Associated Diagnoses [...] Ultrasound-guided paracentesis. EP Marv Myrick M.D., [facility] US P ROCEDURES documented in this encounter Visit Diagnoses Diagnosis Hepatitis Autoimmune (HCC)- Primary Cirrhosis Nonalcoholic (HCC) Ascites Chronic Hepatitis Autoimmune (HCC) Cirrhosis Nonalcoholic (HCC) Ascites Chronic documented in this encounter Care Teams Industrial Psychologist Relationship Specialty Start Date End Date Elsewhere, Pcp PCP - General Internal Medicine 08/19/21 documented as of this encounter
[2023-09-26 12:38] LABS: Creatinine, Point-of-Care* 0.8 mg/dl (0.6-1.3)
[2023-09-26 12:42] LABS: Basophils Percent Auto 0.8 % (0.0-3.0); Hematocrit 34.7 % (37.0-53.0); Hemoglobin* 11.7 gm/dL (13.5-17.5); Immature Granulocytes Pct Auto 0.4 %; Lymphocytes Percent Auto 20.3 % (20-44); Mean Corpuscular HGB Conc 34 gm/dL (32-36); Mean Corpuscular Hemoglobin 32 pg (26-34); Mean Corpuscular Volume 94 fL (80-100); Monocytes Percent Auto 17.1 % (0.0-11.0); Neutrophils Percent Auto 53.4 % (42.0-72.0); Platelet Count* 57 K/uL (140-440); RDW Coefficient of Variation % 17.3 % (11.5-15.5); White Blood Count* 2.51 K/uL (4.50-11.00)
--- NOTE | 2023-09-26 12:48 | ED_ITS ---
HPI - Abdominal Pain General Date Seen: 09/26/23 Chief Complaint: Abdominal Pain Stated Complaint: lower abdominal pain Time Seen by Provider: 09/26/23 11:42 Source: patient Mode of arrival: ambulatory Limitations: no limitations History of Present Illness HPI narrative: Patient is a 73-year-old male presenting to the emergency department for lower abdominal pain. This has been a chronic issue for the past year which she has seen a GI doctor for several times but states it has gotten worse over the past 2-3 weeks. He does note he had surgery at [facility] for umbilical, and inguinal hernia along with cystocele 3 weeks ago that he thought was the cause of the pain. At discharge she was started on stool softeners which she has been taking regularly. States he had a large bowel movement 3 days ago over the past few days has only been passing small soft bowel movements. Currently he states the pain is tolerable but it occasionally spasm in be a 10/10 pain. Last colonoscopy was 8 years ago with no abnormalities seen. 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 Denies chest pain, shortness of breath, weakness, numbness, melena, hematochezia, dysuria, nausea. Related Data Home Medications ?Medication ?Instructions ?Recorded ?Confirmed apixaban 2.5 mg tablet (Eliquis) 2.5 mg PO BID 05/16/23 05/16/23 ascorbic acid (vitamin C) 500 mg mg PO 05/16/23 capsule cholecalciferol (vitamin D3) 125 125 mcg PO DAILY 05/16/23 05/16/23 mcg (5,000 unit) capsule empagliflozin 10 mg tablet 10 mg PO DAILY 05/16/23 05/16/23 (Jardiance) eplerenone 50 mg tablet 100 mg PO DAILY 05/16/23 05/16/23 ferrous gluconate 324 mg (38 mg 324 mg PO DAILY 05/16/23 05/16/23 iron) tablet furosemide 20 mg tablet mg PO 05/16/23 metformin 500 mg tablet,extended 500 mg PO BID 05/16/23 05/16/23 release 24 hr omeprazole 20 mg capsule,delayed 20 mg PO BID 05/16/23 05/16/23 release oxycodone 5 mg tablet PO 05/16/23 rosuvastatin 20 mg tablet 20 mg PO QPM 05/16/23 05/16/23 sennosides 8.6 mg-docusate sodium 1 tab-cap PO BID 05/16/23 05/16/23 50 mg tablet (2-in-1 Laxative) tramadol 50 mg tablet PO 05/16/23 Allergies Allergy/AdvReac Type Severity Reaction Status Date / Time acetaminophen [From Tylenol] Allergy Severe Autoimmune Verified 09/26/23 12:58 Liver Disease celecoxib [From Celebrex] AdvReac Severe Acute Verified 09/26/23 12:58 Renal Failure NSAIDS (Non-Steroidal AdvReac Severe Acute Verified 09/26/23 12:58 Anti-Inflamma Renal Failure Review of Systems Status of ROS Reports: 10 or more systems reviewed and unremarkable except as noted in History and below PFSH PFS Social History Smoking Status: Never smoker Do you use any of these nicotine containing products: None Second hand tobacco smoke exposure: No How often do you have a drink containing alcohol: never How often do you have six or more drinks on one occasion: Never AUDIT-C Alcohol total score: 0 Non-prescribed substance use: denies use service: No Exam Narrative: Exam Narrative: Const: Well-nourished, Well-developed, in mild distress Eyes: PERRL, no conjunctival injection, and symmetrical lids HENT: Atraumatic external nose and ears. Moist mucous membranes. Neck: Symmetric, trachea midline, No thyromegaly. CVS: RRR, No murmurs or gallops. Peripheral pulses 2+ and equal in all extremities RESP: Unlabored respiratory effort. Clear to auscultation bilaterally. GI: Nontender/Nondistended, No rebound or guarding. MSK:Extremities w/o deformity, Normal Active ROM Skin: Warm, Dry. Well-healing surgical sites of the abdomen. There is 1 area in the right lower abdomen that appears slightly open but on further inspection the underlying dermis is closed and just the epidermis is open. No obvious signs of infection. Area is about 2-3 cm in size Neuro: Normal Muscle tone, No focal neurological deficits. Psych: Awake, Alert, & Oriented x3. Appropriate mood and affect. Const: Vital Signs, click to edit/add: Vital Signs - 24 hr 09/26/23 11:47 Temperature 97.3 F L Pulse Rate [Right Pulse Oximeter] 66 Respiratory Rate 18 Blood Pressure [Ri ght Upper Arm] 102/72 Pulse Oximetry 98 Oxygen Delivery Me thod Room Air Course Vital Signs Vital signs: Initial Vital Signs Temperature 97.3 F L 09/26/23 11:47 Temperature Source Temporal Artery Scan 09/26/23 11:47 Pulse Rate 66 09/26/23 11:47 Pulse Rhythm Regular 09/26/23 11:47 Pulse Strength 3+ Normal 09/26/23 11:47 Respiratory Rate 18 09/26/23 11:47 Blood Pressure 102/72 09/26/23 11:47 Blood Pressure Mean 82 09/26/23 11:47 Blood Pressure Position Semi-Fowlers 09/26/23 11:47 Pulse Oximetry 98 09/26/23 11:47 Oxygen Delivery Method Room Air 09/26/23 11:47 Vital Signs Temperature 97.3 F L 09/26/23 11:47 Pulse Rate 66 09/26/23 11:47 Respiratory Rate 18 09/26/23 11:47 Blood Pressure 102/72 09/26/23 11:47 Pulse Oximetry 98 09/26/23 11:47 Oxygen Delivery Method Room Air 09/26/23 11:47 Temperature 97.3 F L 09/26/23 11:47 Pulse Rate 66 09/26/23 11:47 Respiratory Rate 18 09/26/23 11:47 Blood Pressure 102/72 09/26/23 11:47 Pulse Oximetry 98 09/26/23 11:47 Oxygen Delivery Method Room Air 09/26/23 11:47 MDM - Abdominal Pain MDM Narrative Medical decision making narrative: Patient is a 3-year-old male presenting to the emergency department for lower abdominal pain. Symptoms have been ongoing for while but worse over the past few weeks. Did have recent surgery. Seems unlikely developed adhesions this soon after the surgery but will do a CT scan to look for signs of intra- abdominal issues. Is having some soft stools was concerned about constipation which will also be evaluated on CT scan. Order CBC, CMP, urinalysis. Not request anything for pain or nausea at this time. CBC returns with a white blood cell count 2.51. This is lower than his previous white blood cell count of 4.1 that was done little over 2 weeks ago at [facility]. He has no definitive signs of viral infection and no obvious signs a cancer be causing this. This is something follow-up outpatient though. CMP shows no concerning abnormalities. Sodium slightly low at 130 which is consistent this previous sodiums. LFTs slightly elevated with his known cirrhosis this is expected. Urinalysis shows no concerning abnormalities. I cannot say for certain what is causing his pain but there is no acute emergent issues and he is doing well and can be discharged home. He does note that he did not know about his ascites until June and has had it drained in the past. Lab Data Labs: Lab Results 09/26/23 09/26/23 09/26/23 Range/Units 12:13 12:25 13:50 WBC 2.51 L (4.50-11.00) K/uL RBC 3.70 L (4.30-5.90) m/uL Hgb 11.7 L (13.5-17.5) gm/dL Hct 34.7 L (37.0-53.0) % MCV 94 (80-100) fL MCH 32 (26-34) pg MCHC 34 (32-36) gm/dL RDW Coeff of Arelis 17.3 H (11.5-15.5) % Plt Count 57 L (140-440) K/uL Neut % (Auto) 53.4 (42.0-72.0) % Lymph % (Auto) 20.3 (20-44) % [place] % (Auto) 17.1 H (0.0-11.0) % Eos % (Auto) 8.0 H (0.0-7.0) % Baso % (Auto) 0.8 (0.0-3.0) % Neut # (Auto) 1.30 L (1.7-7.0) K/uL Lymph # (Auto) 0.50 L (0.90-2.90) K/uL [place] # (Auto) 0.40 (0.00-0.90) K/UL Eos # (Auto) 0.20 (0.00-0.50) K/uL Baso # (Auto) 0.00 (0.00-0.30) K/uL Abs Immat Gran (auto) 0.00 (0.00-0.30) K/uL Imm/Tot Granulo (auto) 0.4 % Sodium 130 L (135-149) mmol/L Potassium 3.8 (3.6-5.1) mmol/L Chloride 100 (96-114) mmol/L Carbon Dioxide 24 (20-32) mmol/L Anion Gap 6 L (7-15) mEq/L BUN 20 (7-30) mg/dL Creatinine 0.7 (0.5-1.5) mg/dL Estimated Creat Clear 55.28 Estimated GFR 96 ml/min Glucose 118 H (60-115) mg/dL Calcium 8.8 (8.4-10.6) mg/dL Total Bilirubin 1.2 (0.1-1.5) mg/dL AST 69 H (12-35) U/L ALT 38 (4-50) U/L Alkaline Phosphatase 294 H (40-150) U/L Total Protein 7.3 (6.0-8.3) g/dL Albumin 3.0 L (3.3-5.0) g/dL Urine Color Dark yellow (Yellow) Urine Appearance Clear (Clear) Urine pH 6.0 (5.0-8.5) Ur Specific [place] 1.010 (1.000-1.030) Urine Protein Negative (Negative) Urine Glucose (UA) 2+ A (Negative) Urine Ketones Negative (Negative) Urine Blood Negative (Negative) Urine Nitrite Negative (Negative) Urine Bilirubin Negative (Negative) Urine Urobilinogen 0.2 (0.2-1.0) Ur Leukocyte Esterase Negative (Negative) Urine RBC 0-2 (0-2) Urine WBC 0-2 (0-5) Ur Squamous Epith Cells Few (None-Few) Urine Bacteria None (None) POC Creatinine 0.8 (0.6-1.3) mg/dl Discharge Plan Discharge Clinical Impression: Abdominal pain Qualifiers: Abdominal location: lower abdomen, unspecified Qualified Code(s): R10.30 - Lower abdominal pain, unspecified Cirrhosis Qualifiers: Hepatic cirrhosis type: unspecified hepatic cirrhosis Ascites presence: with ascites Qualified Code(s): K74.60 - Unspecified cirrhosis of liver Patient Disposition: Home, Self-Care Condition: Stable Instructions: Ascites (ED) Additional Instructions: Continue to use your stool softeners. Your symptoms might be from the fluid in your abdomen. Follow-up with your GI provider about this. This would be from your cirrhosis. Return to emergency department for new or worsening symptoms. Prescriptions: No Action Eliquis 2.5 mg tablet 2.5 mg PO BID Jardiance 10 mg tablet 10 mg PO DAILY ascorbic acid (vitamin C) 500 mg capsule PO cholecalciferol (vitamin D3) 125 mcg (5,000 unit) capsule 125 mcg PO DAILY furosemide 20 mg tablet PO eplerenone 50 mg tablet 100 mg PO DAILY ferrous gluconate 324 mg (38 mg iron) tablet 324 mg PO DAILY tramadol 50 mg tablet PO omeprazole 20 mg capsule,delayed release(DR/EC) 20 mg PO BID metformin 500 mg tablet extended release 24 hr 500 mg PO BID oxycodone 5 mg tablet PO rosuvastatin 20 mg tablet 20 mg PO QPM sennosides-docusate sodium [2-in-1 Laxative] 8.6-50 mg tablet 1 tab-cap PO BID Follow Up/Referrals: Klaudia Virk DO [Primary Care Provider] - Stand Alone Forms: [facility] Info Instructions
[2023-09-26 13:06] LABS: Slide Review Reflex No
[2023-09-26 13:08] LABS: Chloride* 100 mmol/L (96-114)
[2023-09-26 13:09] LABS: Potassium* 3.8 mmol/L (3.6-5.1); Sodium* 130 mmol/L (135-149)
[2023-09-26 13:11] LABS: Alkaline Phosphatase* 294 U/L (40-150); Anion Gap 6 mEq/L (7-15); Aspartate Amino Transferase* 69 U/L (12-35); Bilirubin Total* 1.2 mg/dL (0.1-1.5); Blood Urea Nitrogen* 20 mg/dL (7-30); Carbon Dioxide* 24 mmol/L (20-32); Creatinine* 0.7 mg/dL (0.5-1.5); Est. Creatinine Clearance* 55.28; Estimated Glomerular Filt Rate 96 ml/min; Total Protein* 7.3 g/dL (6.0-8.3)
[2023-09-26 13:12] LABS: Alanine Aminotransferase* 38 U/L (4-50); Calcium* 8.8 mg/dL (8.4-10.6); Glucose* 118 mg/dL (60-115)
[2023-09-26 13:58] LABS: Appearance Urine Clear (Clear); Bilirubin Urine Negative (Negative); Blood Urine Negative (Negative); Color Urine Dark yellow (Yellow); Glucose Urine 2+ (Negative); Ketones Urine Negative (Negative); Leukocyte Esterase Urine Negative (Negative); Nitrite Urine Negative (Negative); Protein Urine Negative (Negative); Urobilinogen Urine 0.2 (0.2-1.0)
[2023-09-26 14:46] LABS: RBC Urine 0-2 (0-2); WBC Urine 0-2 (0-5)
[2023-09-26 14:47] LABS: Squamous Epithelial Cell Urine Few (None-Few)
== END 2023-09-26 15:18 | disposition home or self-care (01) ==
PROVIDERS: Emergency Provider Student in an Organized Health Care Education/Training Program; PCP Family Medicine
DX: R10.9 Unspecified abdominal pain (principal); K74.60 Unspecified cirrhosis of liver
CPT/HCPCS: 36415; 74177; 80053; 81001; 82565; 85025; 99283; 99284; 99285; Q9967

== ENCOUNTER 2024-08-02 14:56 | Outpatient (CLI) | payer MEDICARE, BC, SELFPAY | END 2024-08-02 14:57 | disposition home or self-care (01) | LOC: AMB 08-04 08:26 | PROVIDERS: PCP Family Medicine; Visit Provider Family Medicine | DX: R53.1 Weakness (principal) | CPT/HCPCS: A0425; A0427 ==

== ENCOUNTER 2024-08-29 08:45 | Outpatient (CLI) | payer MEDICARE, BC, SELFPAY | END 2024-08-29 08:46 | disposition home or self-care (01) | LOC: AMB 08-31 10:14 | PROVIDERS: PCP Family Medicine; Visit Provider Emergency Medicine Emergency Medical Services | DX: R41.82 Altered mental status, unspecified (principal) | CPT/HCPCS: A0425; A0429 ==

== ENCOUNTER 2024-09-02 02:47 | Outpatient (CLI) | payer MEDICARE, BC, SELFPAY | END 2024-09-02 02:48 | disposition home or self-care (01) | LOC: AMB 09-05 08:54 | PROVIDERS: PCP Family Medicine; Visit Provider Family Medicine | DX: R41.82 Altered mental status, unspecified (principal) | CPT/HCPCS: A0425; A0427 ==

== ENCOUNTER 2024-09-02 03:25 | Inpatient (IN) | payer MEDICARE, BC, SELFPAY ==
--- OUTSIDE RECORDS SUMMARY | 2024-07-22 10:32 | XMS_ITS | Encounter Summary ---
Author Organization [facility] Address [address] [place] [address] Care Team Providers Care Marine Meteorologist Name Role Phone Elsewhere, Pcp Primary Care Provider Unavailabl e Reason for Referral * Outpatient (Routine) - Closed Specialty Diagnoses / Procedures Referred By Santi segundo Referred To Contact Diagnoses Ascites Chronic Procedures US [facility] Marv Myrick M.D., M.P.H. [address] [place] [address] Phone: tel: fax: [facility] Referral ID Status Reason Start Date Expiration Date Visits Re quested Visits Authorized [id number] Closed 07/14/2024 10/14/2025 1 1 Reason for Visit * Outpatient (Routine) - Closed Specialty Diagnoses / Procedures Referred By Santi segundo Referred To Contact Diagnoses Ascites [facility] Marv Myrick M.[facility] M.P.H[facility] [address] [place] [address] Phone: tel: fax: [facility] Referral ID Status Reason Start Date Expiration Date Visits Re quested Visits Authorized [id number] Closed 07/14/2024 10/14/2025 1 1 Encounter Details Date Type Department Care Team (Latest Contact Info) Description 07/22/2024 10:32 AM CDT - 07/22/2024 11:59 PM CDT Hospital Encounter Department of Radiology, [facility], in [place], [place] [address] [place] [address] Marv Myrick M.D., M.P.H. [address] [place] [address] Ascites Chronic Discharge Disposition: Home or Self Care Social History Tobacco Use Types Packs/Day Years Used Date Smoking Tobacco: Never Smokeless Tobacco: Never Alcohol Use Standard Drinks/Week Comments Not Currently 0 (1 standard drink = 0.6 oz pur e alcohol) Don t drink [facility] Utilities Answer Date Recorded In the past 12 months has [employer], gas, oil, or water [employer] threatened to shut off services in your [...] 04/27/2022 How often do you attend [facility] or muslim services? More than 4 times per year 04/27/2022 Do you belong to any clubs o r organizations such as zoroastrian groups, unions, fraternal or athletic groups, or [...] and heating? Not hard at all 04/27/2022 [facility] [employer] [facility] [employer]at ional [facility] - Occupational Stress [...] your living situation today? [facility] 09/10/2023 Education Answer Date Recorded What is the highest level of school you have completed or the highest degree you have received? 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 empagliflozin (JARDIANCE) 10 mg tablet Take 1 tablet by mouth daily. 12/05/2020 ferrous gluconate (FERGON) 324 mg (38 mg iron) tablet Take 324 mg by mouth daily. metFORMIN XR (GLUCOPHAGE-XR) 500 mg 24 hr tablet Take 500 mg by mouth 2 (two) times a day. omeprazole (PriLOSEC) [address] capsule Take 20 mg by mouth every morning before breakfast. 07/20/2020 rosuvastatin (CRESTOR) 20 mg tablet Take 20 mg by mouth daily. 05/15/2020 furosemide (LASIX) 20 mg tablet Take 40 mg by mouth 2 (two) times a day. 07/05/2020 08/05/2024 sennosides-docusa te sodium (SENOKOT-S) 8.6-50 mg per tablet Take 2 tablets by mouth 2 (two) times a day. 30 tablet 08/28/2023 08/30/2024 spironolactone (Aldactone) 100 mg tablet Take 1 tablet (100 mg total) by mouth daily. 90 tablet 3 06/02/2024 08/05/2024 documented as of this encounter Plan of Treatment Upcoming Encounters Date Type Department Care Team (Late st Contact Info) Description 09/06/2024 1:00 PM CDT Appointment Department of Radiology, [facility] in [place], [place] [address] [place] [address] Marv Myrick M.D., M.P.H. [address] [place] [phone] 09/07/2024 11:10 AM CDT Appointment Department of Laboratory Medicine and Pathology, [facility] in [place], [place] [address] [place] [address] Marv Myrick M.D., M.P.H. [address] [place] [phone] 09/07/2024 1:30 PM CDT Office Visit Division of Gastroenterology in [place], [place] [address] [place] [phone] Marv Myrick M.D., M.P.H. [address] [place] [phone] documented as of this encounter Procedures Procedure Name Priority Date/Time Associated Diagnosis Comments US SCROTUM RAD - Routine (most inpatients and all outpatients) 07/22/2024 11:31 AM CDT Ascites Chronic documented in this encounter Results * US Scrotum (07/22/2024 11:31 AM CDT) Anatomical Region Laterality Modality Testes, Ultrasound RST LOS, Ultrasound ARZ LOS, Ultrasound FLA LOS N/A Ultrasound Impressions 07/22/2024 2:35 PM CDT 1. There is a small amount of septated fluid which tracks from the left inguinal canal into the left scrotum. 2. Trace right hydrocele. 3. Slightly heterogeneous echotexture of the left testicle. Findings are nonspecific and recommend clinical correlation and/or continued attention on follow-up. Narrative 07/22/2024 2:35 PM CDT EXAM: US SCROTUM COMPARISON: Scrotal ultrasound 09/03/2023. FINDINGS: Right testicle: Normal size, echotexture, and blood flow pattern. No focal mass. Right testis volume: 10.3 ml Epididymis: The epididymis appears slightly edematous but is without associated hyperemia. Other: Trace hydrocele. Mild scrotal edema. Left testicle: Normal size and blood flow pattern. Slightly heterogeneous echotexture No focal mass. Left testis volume: 12.5 ml Epididymis: Normal. No mass or hyperemia. Other: Fluid tracks from the left inguinal canal into the scrotum which is mildly septated. Other: Only a trace amount of ascites is identified in the abdomen. Procedure Note Zeb Griffiths M.D. - 07/22/2024 EXAM: US SCROTUM COMPARISON: Scrotal ultrasound 09/03/2023. FINDINGS: Right testicle: Normal size, echotexture, and blood flow pattern. No focalmass. Right testis volume: 10.3 ml Epididymis: The epididymis appears slightly edematous but is withoutassociated hyperemia. Other: Trace hydrocele. Mild scrotal edema. Left testicle: Normal size and blood flow pattern. Slightly heterogeneousechotexture No focal mass. Left testis volume: 12.5 ml Epididymis: Normal. No mass or hyperemia. Other: Fluid tracks from the left inguinal canal into the scrotum which ismildly septated. Other: Only a trace amount of ascites is identified in the abdomen. IMPRESSION: 1. There is a small amount of septated fluid which tracks from the leftinguinal canal into the left scrotum. 2. Trace right hydrocele. 3. Slightly heterogeneous echotexture of the left testicle. Findings arenonspecific and recommend clinical correlation and/or continued attentionon follow-up. Marv Myrick M.D., M.P.H. IMG US PROCEDURE S Final Result documented in this encounter Visit Diagnoses Diagnosis Ascites Chronic documented in this encounter Care Teams Marine Meteorologist Relationship Specialty Start Date End Date Elsewhere, Pcp PCP - General Internal Medicine 08/19/21 documented as of this encounter
--- OUTSIDE RECORDS SUMMARY | 2024-08-02 17:00 | XMS_ITS | Encounter Summary ---
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 [address] [place] [phone] Issac Irwin M.D., Ph.D. [address] [place] [phone] Jose Robertson APRN, C.N.P., D.N.P. [address] [place] [phone] Illness Febrile (Primary Dx); Acidosis Lactic; Sepsis (HCC); Decline Functional Status [R53.81]; Elevated Troponin; Abdominal Pain; Colitis; Hernia Inguinal Left; Pneumonitis Due To Inhalation Of Food And Vomit (HCC); Thrombocytopenia; Hyperlipidemia; Ascites; Primary Osteoarthritis Hip Left; Thrombosis Deep Vein Personal History; Stricture Esophagus; Unspecified Cirrhosis Of Liver (HCC); Secondary Esophageal Varices Without Bleeding (HCC); Hypertension Portal (HCC); Hypertension Essential Primary; Hepatitis Autoimmune (HCC); Diabetes Mellitus Type 2 (HCC) Discharge Disposition: Home or Self Care Social History Tobacco Use Types Packs/Day Years Used Date Smoking Tobacco: Never Smokeless Tobacco: Never Alcohol Use Standard Drinks/Week Comments Not Currently 0 (1 standard drink = 0.6 oz pur e alcohol) Don t drink [facility] Utilities Answer Date Recorded In the past 12 months has e [email or web address], gas, oil, or water [employer] threatened to shut off services in your home? No 08/03/2024 Humiliation, Afraid, Rape, and Kick questionnair e Answer Date Recorded Within the last year, have y ou been afraid of your partner or ex-partner? No 08/03/2024 Within the last year, have y ou been humiliated or emotionally abused in other ways by your partner or ex-partner? No Within the last year, have y ou been kicked, hit, slapped, or otherwise physically hurt by your partner or ex-partner? No 08/03/2024 Within the last year, have y ou been raped or forced to have any kind of sexual activity by your partner or ex-partner? No 08/03/2024 Social Connection and Isolat ion Panel [NHANES] Answer Date Recorded In a typical week, how many times do you talk on the phone with family, friends, or neighbors? More than three times a week 04/27/2022 How often do you get togethe r with friends or relatives? Twice a week 04/27/2022 How often do you attend chur ch or yarsanism services? More than 4 times per year 04/27/2022 Do you belong to any clubs o r organizations such as yazidi groups, unions, fraternal or athletic groups, or [...] heating? Not hard at all 04/27/2022 [facility] of Occupat ional Health - Occupational Stress [...] the money to buy more. Never true 08/04/19 25 Within the past 12 months, t he food you bought just didn't last and you didn't have money to get more. Never true 08/03/2024 PRAPARE - Transportation Answer Date Re corded In the past 12 months, has l ack of transportation kept you from medical appointments or from getting medications? No 07/21 In the past 12 months, has l ack of transportation kept you from meetings, work, or from getting things needed for daily living? No 08/03/2024 Nutrition Answer Date Recorded On average, how [...] your living situation today? I have a [facility] place to live 08/03/2024 Education Answer Date Recorded What is the highest level of school you have completed or the highest degree you have received? 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 Gender Identity Male 11/11/2020 11:30 AM CDT Sexual Orientation Straight 11/11/2020 11 :30 AM CDT documented as of this encounter Last Filed Vital Signs Vital Sign Reading Time Taken Comments Blood Pressure 111/73 08/05/2024 4:16 PM CDT Pulse 68 08/05/2024 4:16 PM CDT Temperature 36.4 C (97.6 F) 08/05/2024 4:16 PM CDT Respiratory Rate 17 08/05/2024 2:30 PM CDT Oxygen Saturation 99% 08/05/2024 4:16 PM CDT Inhaled Oxygen Concentration - - Weight 63.9 kg (140 lb 14 oz) 08/05/2024 1:15 AM CDT Height 172.7 cm (5' 7.99) 08/04/2024 1:13 PM CD T Body Mass Index 21.42 08/04/2024 1:13 PM CDT documented in this encounter Discharge Summaries * Issac Irwin M.D., Ph.D. - 08/05/2024 1:06 PM CDT DISCHARGE SUMMARY BRIEF OVERVIEW Discharge Hospital: [facility] Discharge Provider: Issac Irwin M.D., Ph.D. Discharge Provider Team: Hospital Internal Medicine (HIM) - [facility] Medicine 9 ([facility]) Primary Care Providers: Elsewhere, Pcp (General) No address on file PCP Phone Number: None PCP Fax Number: None Admission Date: 08/02/2024 Discharge Date: 08/05/24 PRINCIPAL DIAGNOSIS Sepsis (HCC) SECONDARY DIAGNOSES Principal Problem: Sepsis (HCC) Active Problems: Diabetes Mellitus Type 2 (HCC) Gastroesophageal Reflux Disease NOS Hepatitis Autoimmune (HCC) Hypertension Essential Primary Hypertension Portal (HCC) Secondary Esophageal Varices Without Bleeding (HCC) Unspecified Cirrhosis Of Liver (HCC) Thrombosis Deep Vein Personal History Hyperlipidemia Thrombocytopenia Elevated Troponin Acidosis Lactic Resolved Problems: Illness Febrile DISCHARGE DISPOSITION Home or Self Care [1] ACTIVE ISSUES REQUIRING FOLLOW UP OUTPATIENT FOLLOW UP For appointment details refer to your Patient Appointment Guide. TEST RESULTS PENDING AT DISCHARGE Pending Labs Order Current Status Bacteria / Neda Culture, Blood #1 Preliminary result Bacteria / Neda Culture, Blood #2 Preliminary result Bacterial Culture, Aerobic + Susceptibility Preliminary result DETAILS OF HOSPITAL STAY REASON FOR ADMISSION Sepsis (HCC) HOSPITAL COURSE Mr. Niko Jennings is a 73 y.o. man who presented with sepsis. 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 He presented to [facility] ED 08/02/24 for evaluation of generalized weakness and malaise for 2-3 days. Inthe ED, he was febrile (38.2, 39), and intermittently hypotensive and tachypneic. Laboratory evaluation showed hemoglobin 11.9, platelets 47, leukocytes 9.9, glucose 170, sodium 131, bicarb 16, creatinine 1.18 (stable), normal magnesium, phosphorus 1.7, total bilirubin 1.7 (previously 1.4), direct bilirubin 0.7 (from 0.4), ALP 182 (previously 190), lactate 3.3- >2.7, CRP 15.8, ESR 40. Troponin 48->58. Influenza/COVID PCR was negative. UA showed ketones (5), protein, hemoglobin, 4-10 WBC, negative nitrites, glucose >1000. Initial ECG showed sinus rhythm, PACs, left axis deviation, new RBBB with secondary ST-T abnormalities. Repeat ECG was unchanged. CXR showed resolution of patchy opacities within the lung bases, no new focal consolidation or pleural effusion, reticular and linear opacities within both lung bases likely represent mild fibrotic changes. CT abdomen/pelvis showed mild ascites and mild subcutaneous edema, cirrhosis with sequelae of portal venous hypertension. Urine and blood cultures were obtained. He received zosyn, vancomycin, potassium, 3 L normal saline. He was admitted to [place] [address] for further management. He was initially continued on empiric antibiotics in the setting of sepsis. CXR and UA showed no evidence of infection. Paracentesis on 08/03 shows 152 nucleated cells, 37% N; less likely SBP. Patient had no evidence of encephalopathy, bleeding. Patient's care was coordinated with GI. Patient continued to improve without signs of focal infection. With shared decision making, antibiotics continued to treat possibility of occult infection. Deescalated to ciprofloxacin; we recommend continued antibiotics through 08/07. Discussed decompensated cirrhosis, and focus on optimization of volume status. GI recommended furosemide 40, spironolactone 50, and follow up with PCP and outpatient GI specialist for continued optimization. CONSULTS ORDERED DURING THIS ADMISSION IP CONSULT TO HEPATOLOGY IP CONSULT TO DIETITIAN IP CONSULT TO DIETITIAN CONDITION AT DISCHARGE Stable I saw and evaluated Mr. Niko Jennings today and provided counseling [id number] at bedside. I personally spent a total of greater than 30 minutes in counseling and coordination of care as described above to facilitate the hospital discharge. Discharge instructions were provided to the patient and caregiver(s). documented in this encounter Discharge Instructions * Discharge Instructions* Abbey Pritchett - 08/03/2024 7:36 AM CDT You were discharged from the [facility] Medicine 9 ([facility]) Service. Please identify this service name if youcall with questions after hospitalization. * Attachments The following attachments cannot be sent through Care Everywhere. * Ciprofloxacin (By mouth) (Urdu) documented in this encounter Medications at Time [...] by mouth 2 (two) times a day. multivitamin-iro g-OP-Wk-minerals 400 mcg (folic acid) tablet Take 1 tablet by mouth daily. 30 tablet 08/06/2024 omeprazole (PriLOSEC) [address] capsule Take 20 mg by mouth every morning before breakfast. 07/20/2020 rosuvastatin (CRESTOR) 20 mg tablet Take 20 mg by mouth daily. 05/15/2020 ciprofloxacin (Cipro) 500 mg tabletIndication s:Intra-abdomina l infection, community acquired Take 1 tablet (500 mg total) by mouth 2 (two) times a day before morning and evening meals for 2 days Indications: Intra-abdominal infection, community acquired. 4 tablet 08/05/2024 4:24 PM CDT 08/05/2024 5 furosemide (Lasix) 20 mg tablet Take 1 tablet (20 mg total) by mouth daily. 08/05/2024 5 sennosides-docus ate sodium (SENOKOT-S) 8.6-50 mg per tablet Take 2 tablets by mouth 2 (two) times a day. 30 tablet 08/28/2023 5 spironolactone (Aldactone) 100 mg tablet Take 1 tablet (100 mg total) by mouth daily. 08/05/2024 5 documented as of this encounter Progress Notes * Yanna Zarate M.B.BMarcusS. - 08/05/2024 8:45 AM CDT GASTROENTEROLOGY & HEPATOBILIARY CONSULT FOLLOW UP Date/Time: 08/05/2024 8:45 AM CDT Patient Name: Niko Jennings : 1950 SUBJECTIVE ID: PERTINENT UPDATES: Planned for discharge today, he feels he is reaccumulating ascites. Otherwise feels like he is backto baseline. OBJECTIVE VITAL SIGNS BP 102/78 (BP Location: Left arm;Upper, Patient Position: Lying) Pulse 72 Temp 36.7 ??C (Oral) Resp 20 Ht 172.7 cm Wt 63.9 kg SpO2 95% BMI 21.42 kg/m?? PHYSICAL EXAMINATION Alert oriented Abdomen distended. DIAGNOSTICS Labs: Recent Labs 08/05/24 0449 08/04/24 0842 08/04/24 0504 08/04/24 0504 08/03/24 1113 WBC 3.0 L -- -- 3.4 -- HGB 10.7 L -- -- 10.7 L -- PLT 45 L -- -- 40 Crit L -- INR -- -- -- 1.3 1.3 NA 133 L 133 L < > 133 L -- CL 106 105 < > 107 -- BUN 17 14 < > 16 -- CREATININE 1.21 1.15 < > 1.16 -- CALCIUM 8.0 L 7.8 L < > 7.8 L -- ALBUMIN 2.5 L 2.5 L 2.6 L 2.6 L < > 2.6 L 2.6 L -- BILITOT 0.9 1.4 H < > 1.2 -- AST 73 H 77 H < > 75 H -- ALT 27 31 < > 30 -- ALKPHOS 170 H 160 H < > 164 H -- < > = values in this interval not displayed. Echo Final Impressions 1. Normal left ventricular chamber size, no regional wall motion abnormalities, calculated 2-D biplane volumetric ejection fraction of 70%. 2. Left ventricular cardiac index 2.91 l/min/m2. 3. Grade 1/3 left ventricular diastolic dysfunction, consistent with low to normal left ventricularfilling pressure at rest. 4. Normal right ventricular chamber size, normal systolic function, unable to detect peak tricuspidregurgitation velocity for pulmonary artery systolic pressure calculation. 5. No hemodynamically significant valvular heart disease. 6. Mitral valve bowing , trivial mitral regurgitation. 7. No pericardial effusion. 8. There are no previous [facility] echocardiograms available for comparison. ASSESSMENT / PLAN PROBLEM LIST: # fever # portal hypertension in the setting of AIH related cirrhosis # Elevated AST Niko Jennings is a 73y gentleman who has decompensated AIH related cirrhosis. He is not on any immunosuppresive therapy. He was admitted with fever and weakness and hypotension. It is possible that he may have SBP however a paracentesis was not performed prior to starting antibiotics. Infectious workup was otherwise negative. Liver doppler demonstrated cirrhosis with patent veins. AST was elevated and a CK was checked whichalso came back as elevated. Liver tests are stable. At this time difficult to determine if this is true relapse of AIH and would recommend repeat liver tests in 2 weeks (outpatient) and we will help set up follow up (message sent to outpatient team) From a diuretic standpoint agree with primary to trial 20mg of lasix and 100mg of spironolactone with monitoring of renal function. He is planned to get a paracentesis today. He also will need varices surveillance due to prior intolerance to carvedilol. This can be done as an outpatient. No concerns for bleeding during this admission This patient was staffed with Dr. Mike Warner, with the recommendations discussed with the primary team. Thank you for involving us in the care of this patient. We will sign off at this time. Please page the GI Hepatobiliary consult pager at [phone] with any questions or concerns. CHRISTY Gomez PGDM Gastroenterology and Hepatology Fellow * Issac Irwin M.D., Ph.D. - 08/04/2024 12:06 PM CDT T Medicine 9 ([facility]) Progress Note SUBJECTIVE Mr. Jennings seen with his at bedside. States that he feels better..., denies abdominal pain, fever. Endorses increased strength. Endorses increased abdominal distention. No current evidence of focal infection. Will continue to coordinate with GI. Anticipate deescalating antibiotics and monitoring for recurrent fever. Discuss optimization of volume status. Continue PT/OT. I have reviewed the current medication list. OBJECTIVE VITAL SIGNS Temperature: [36.4 ??C-37 ??C] 36.4 ??C Heart Rate: [55-80] 63 Resp Rate: [13-30] 19 Blood Pressure: (69-118)/(47-74) 101/68 SpO2: [95 %-100 %] 96 % Weight: [63.5 kg-63.9 kg] 63.9 kg BMI (Calculated): [21.3 kg/m??-21.4 kg/m??] 21.4 kg/m?? Pulse Rate: [56-81] 63 PHYSICAL EXAMINATION General: Alert, NAD HENT: Trachea midline Eyes: No jaundice Lungs: Good airflow bilaterally Heart: Regular rate, rhythm Abdomen: BS present, nontender Psych: Affect full DIAGNOSTICS I have independently reviewed labs, imaging. ASSESSMENT / PLAN Mr. Jennings is hospitalized on [facility] 9 ([facility]) for evaluation and management of Sepsis (HCC). #1 Diabetes Mellitus Type 2 (HCC) #2 Gastroesophageal Reflux Disease NOS #3 Hepatitis Autoimmune (HCC) #4 Hypertension Essential Primary #5 Hypertension Portal (HCC) #6 Secondary Esophageal Varices Without Bleeding (HCC) #7 Unspecified Cirrhosis Of Liver (HCC) #8 Thrombosis Deep Vein Personal History #9 Hyperlipidemia #10 Thrombocytopenia #11 Sepsis (HCC) #12 Elevated Troponin #13 Acidosis Lactic Mr. Jennings is a 73 y/o man who presented to the [facility] ED on 08/02 with abrupt generalized weakness the same day. Query sepsis, unclear etiology. Associated with transient fever, generalized weakness. No current evidence of focal infection. Decompensated cirrhosis. Will continue to coordinate with GI. Anticipate deescalating antibiotics, and monitoring for recurrent fever. Discuss optimization of volume status. Continue PT/OT. Continue to follow cultures. Monitor for bleeding, encephalopathy. Daily volume assessment. Thrombocytopenia, chronic with recent decrease; 4T score shows low probability for HIT. Smear showsno evidence of schistocytes. No evidence of bleeding. Repeat with manual. Will continue to monitor. Diet: Adult Diet Regular; 2,000 mg Na; 1500 mL Fluid Tubes/lines: Lines, Drains, and Airways Peripheral IV Duration Peripheral IV 08/03/24 20 G Lower;Posterior;Right Forearm 22h Wound Duration Wound 08/03/24 Abdomen Medial;Right 1d 2h Wound 03/30/24 Abdomen Lateral;Right paracentesis site 127d 1h VTE prophylaxis: SCDs, defer pharmacologic anticoagulation until no more procedures planned Disposition: Home Stable to discharge criteria (not yet met): pending good outpatient plan for sepsis I personally spent a total of 50 minutes providing and coordinating care today. Non-severe (moderate) Malnutrition The patient meets the ASPEN Criteria of malnutrition based on: Energy Intake: No Change Interpretation of Weight Loss: Unable to Assess Body Fat: Mild Loss Muscle Mass: Moderate Loss This is in the context of Chronic Illness. Malnutrition Present Upon Admission: Yes Agree with Registered Dietitian's assessment and treatment plan: Interventions: Medical food supplement, Vitamin and mineral supplements, Provide education to increase nutrition knowledge, Provide counseling strategies to apply nutrition knowledge * Lori Mcfarlane P.T., D.P.T. - 08/04/2024 10:16 AM CDT Physical Therapy consult was received and chart review was completed. Niko Jennings is mobilizing well with family and nursing. Patient does not require skilled therapy intervention at thistime. Will defer evaluation and discontinue order. If patient's status should change significantly, please place a new order as appropriate. Lori Mcfarlane P.T., D.P.T. * Solomon Dobson, Pharm.D., R.Ph. - 08/03/2024 1:07 PM CDT Pharmacist Progress Note Reason for admission: Acidosis Lactic [E87.29] Illness Febrile [R50.9] Sepsis (HCC) [A41.9] Medical History[1] OBJECTIVE Home medications: Held: empagliflozin, furosemide, metformin, spironolactone Changed: pantoprazole for omeprazole Prophylaxis: deferring until potential procedures completed Vancomycin Vancomycin indication: sepsis syndrome Goal trough: 10-15 mcg/mL Renal replacement therapy: None Estimated Creatinine Clearance: 53 mL/min (by C-G formula based on SCr of 1.08 mg/dL). No results found for: VANCOTROUGH, VANCORANDOM, VANCOPEAK ASSESSMENT / PLAN Medications, labs, notes reviewed. Resume home medication as appropriate ID - continues vancomycin 1000 mg q24h and Zosyn 3.375 gm q6h. Await cultures. Will plan for a vancomycin level tomorrow evening with his 3rd dose in case he is clearing faster than his CrCl would predict. [1] Past Medical History: Diagnosis Date Arthritis Rheumatoid (HCC) Cataract Diabetes Mellitus NOS Gastroesophageal Reflux Disease NOS Hyperlipidemia Hypertension NOS Liver Disease Other Specified Health Status Renal Disease Stricture Esophagus Varix Esophageal (HCC) * Issac Irwin M.D., Ph.D. - 08/03/2024 12:24 PM CDT [facility] Medicine 9 ([facility]) Progress Note SUBJECTIVE Mr. Jennings seen with his at bedside. States that at his baseline, he is able to ambulate and walk 1-2 blocks before [place]. States that on the day of admission, he was feeling well, but experienced an episode where he abruptly felt weak and exhausted. States that he required help standing up. Presented to the hospital where he was found to have fever. In retrospect, states that 1-2 days prior to presentation, he experienced severe abdominal pain around his umbilical region. This resolved with time. Also endorses increasing abdominal distention in the past several months. Endorses possible chills. Denies fevers. Denies chest pain, SOB, palpitations. Denies nausea, vomiting. Denies dysuria. Sepsis, unclear etiology. Associated with generalized weakness. Assess for occult infection. Query orthostasis. Paracentesis on 08/03 shows 152 nucleated cells, 37% N; less likely SBP. Continue empiric antibiotics, follow cultures. Monitor for bleeding, encephalopathy. Daily volume assessment. Discuss with GI,PT/OT. I have reviewed the current medication list. OBJECTIVE VITAL SIGNS Temperature: [36.4 ??C-39 ??C] 36.6 ??C Heart Rate: [54-92] 64 Resp Rate: [14-28] 22 Blood Pressure: (76-118)/(47-65) 97/65 SpO2: [92 %-98 %] 96 % Height: [172.7 cm] 172.7 cm Weight: [62.8 kg-63.8 kg] 63.4 kg BSA (Calculated - sq m): [1.75 sq meters] 1.75 sq meters BMI (Calculated): [21.3 kg/m??-21.4 kg/m??] 21.3 kg/m?? Pulse Rate: [54-86] 60 PHYSICAL EXAMINATION General: Alert, NAD HENT: Trachea midline Eyes: No jaundice Lungs: Good airflow bilaterally Heart: Regular rate, rhythm Abdomen: BS present, nontender Psych: Affect full DIAGNOSTICS I have independently reviewed labs, imaging. ASSESSMENT / PLAN Mr. Jennings is hospitalized on [place] [address] ([facility]) for evaluation and management of Sepsis (HCC). #1 Diabetes Mellitus Type 2 (HCC) #2 Gastroesophageal Reflux Disease NOS #3 Hepatitis Autoimmune (HCC) #4 Hypertension Essential Primary #5 Hypertension Portal (HCC) #6 Secondary Esophageal Varices Without Bleeding (HCC) #7 Unspecified Cirrhosis Of Liver (HCC) #8 Thrombosis Deep Vein Personal History #9 Hyperlipidemia #10 Thrombocytopenia #11 Sepsis (HCC) #12 Elevated Troponin #13 Acidosis Lactic Mr. Jennings is a 73 y/o man who presented to the [facility] ED on 08/02 with abrupt generalized weakness the same day. Sepsis, unclear etiology. Associated with generalized weakness. Assess for occult infection. Query orthostasis. Paracentesis on 08/03 shows 152 nucleated cells, 37% N; less likely SBP. Continue empiric antibiotics, follow cultures. Monitor for bleeding, encephalopathy. Daily volume assessment. Discuss with GI,PT/OT. Diet: Adult Diet Regular; 2,000 mg Na; 1500 mL Fluid Tubes/lines: Lines, Drains, and Airways Peripheral IV Duration Peripheral IV 08/02/24 20 G Posterior;Right Hand 18h Wound Duration Wound 08/03/24 Abdomen Medial;Right 2h Wound 03/30/24 Abdomen Lateral;Right paracentesis site 126d 1h VTE prophylaxis: SCDs, defer pharmacologic anticoagulation until no more procedures planned Disposition: Home Stable to discharge criteria (not yet met): pending good outpatient plan for sepsis I personally spent a total of 50 minutes providing and coordinating care today. documented in this encounter H&P Notes * Marcelo Maurisiomarry Esposito APRN, C.N.P., D.N.P. - 08/02/2024 9:40 PM CDT [facility] Medicine 9 ([facility]) Admission Note SUBJECTIVE CHIEF COMPLAINT / REASON FOR VISIT Sepsis HISTORY OF PRESENT ILLNESS Mr. Niko Jennings is a 73 y.o. male who presents with sepsis. 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 He presented to [facility] ED today for evaluation of generalized weakness and malaise for 2-3 days. In the ED, he was febrile (38.2, 39), and intermittently hypotensive and tachypneic. Laboratory evaluation showed hemoglobin 11.9, platelets 47, leukocytes 9.9, glucose 170, sodium 131, bicarb 16, creatinine 1.18 (stable), normal magnesium, phosphorus 1.7, total bilirubin 1.7 (previously 1.4), direct bilirubin 0.7 (from 0.4), ALP 182 (previously 190), lactate 3.3- >2.7, CRP 15.8, ESR 40. Troponin 48->58. Influenza/COVID PCR was negative. UA showed ketones (5), protein, hemoglobin, 4-10 WBC, negative nitrites, glucose >1000. Initial ECG showed sinus rhythm, PACs, left axis deviation, new RBBB with secondary ST-T abnormalities. Repeat ECG was unchanged. CXR showed resolution of patchy opacities within the lung bases, no new focal consolidation or pleural effusion, reticular and linear opacities within both lung bases likely represent mild fibrotic changes. CT abdomen/pelvis showed mild ascites and mild subcutaneous edema, cirrhosis with sequelae of portal venous hypertension. Urine and blood cultures were obtained. He received zosyn, vancomycin, potassium, 3 L normal saline. He was admitted to [place] [id number] for further management. Upon admission, he endorsed above history. He reported abdominal fullness and tenderness. He used to require frequent paracentesis but he has done well from that standpoint over the past 3 months. No dysuria, hematuria, urinary frequency, cough, chest pain. Meds, allergies, medical, surgical, social & family histories have been reviewed & updated as necessary. Current Outpatient Medications on File Prior to Encounter: furosemide (LASIX) 20 mg tablet, Take 40 mg by mouth 2 (two) times a day., 08/02/2024 spironolactone (Aldactone) 100 mg tablet, Take 1 tablet (100 mg total) by mouth daily. (Patient taking differently: Take 50 mg by mouth daily.), 08/02/2024 cholecalciferol (VITAMIN D3) 125 mcg (5,000 Unit) tablet, Take 125 mcg by mouth daily. empagliflozin (JARDIANCE) 10 mg tablet, Take 1 tablet by mouth daily. ferrous gluconate (FERGON) 324 mg (38 mg iron) tablet, Take 324 mg by mouth daily. metFORMIN XR (GLUCOPHAGE-XR) 500 mg 24 hr tablet, Take 500 mg by mouth 2 (two) times a day. omeprazole (PriLOSEC) [address] capsule, Take 20 mg by mouth every morning before breakfast. rosuvastatin (CRESTOR) 20 mg tablet, Take 20 mg by mouth daily. sennosides-docusate sodium (SENOKOT-S) 8.6-50 mg per tablet, Take 2 tablets by mouth 2 (two) times a day. (Patient taking differently: Take 2 tablets by mouth as needed.) OBJECTIVE VITAL SIGNS Temperature: [36.9 ??C-39 ??C] 36.9 ??C Heart Rate: [67-92] 73 Resp Rate: [16-28] 20 Blood Pressure: (90-118)/(51-65) 92/63 SpO2: [94 %-98 %] 98 % Weight: [62.8 kg-63.8 kg] 63.8 kg Pulse Rate: [66-86] 66 PHYSICAL EXAMINATION GENERAL: NAD, in bed HEENT: PERRLA, normal sclera and conjunctiva. Oropharynx is normal without erythema or exudate LUNGS: Clear to auscultation bilaterally. Normal respiratory effort on room air CARDIOVASCULAR: RRR with audible systolic murmur GI/: Mildly distended abdomen with normal bowel sounds. Diffuse tenderness with palpation but no guarding or rebound tenderness MUSCULOSKELETAL: No edema or erythematous joints. Normal ROM and 5/5 strength in all extremities. DP pulses are symmetric and 2+. Gait not assessed SKIN: Mildly icteric without rashes or lesions, skin warm and dry NEURO: Alert and oriented x4. 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 If adequate ascites, diagnostic paracentesis could be considered if safe with his thrombocytopenia LFTs are fairly stable GI consult Repeat lactate with AM labs Holding diuretics due to hypotension in the setting of sepsis Strict I&Os # Elevated troponins Follow-up 6 hour troponin Cardiac monitoring # Hypophosphatemia; mild hyponatremia # Normal anion gap metabolic/starvation acidosis Complete phosphorus repletion started in the ED. Recheck with AM labs Monitor mild hyponatremia after IV fluids # Essential hypertension # Hyperlipidemia # Possible atrial fibrillation noted on a previous ECG of poor quality (CHADS2 Vasc 3) # History of DVT (not currently on anticoagulation) Holding diuretics as noted above Hold statin pending LFT trends # T2DM (A1c 6.0 08/2023) # GERD A1c with AM labs Glucose checks q.i.d., SSI Continue PPI # Mild pulmonary fibrotic changes on imaging # S/p umbilical and left inguinal hernia repair 09/04/23 with recent US showing small amount of fluid in the left scrotum and trace right hydrocele Outpatient follow-up HELD: Lasix, spironolactone, Jardiance, metformin, statin, supplements/vitamins DIET: Adult Diet Regular; 2,000 mg Na; 1500 mL Fluid TUBES/LINES: PIV VTE PROPHYLAXIS: Held due to chronic thrombocytopenia and possible procedures CODE STATUS: Full Code, discussed on admission BASELINE MOBILITY: BMAT Level 4 (Able to stand and walk) DISPOSITION: Home The patient was seen and evaluated with Dr. Gooden, HIM travel service consultant. I personally spent a total of 75 minutes providing and coordinating care today. documented in this encounter Consult Notes * Tonie Day M.S., RDN, LD - 08/04/2024 1:08 PM CDTAssociated Order(s): IP CONSULT TO DIETITIAN; IP CONSULT TO DIETITIAN Clinical Nutrition: Initial Assessment Clinical Nutrition was requested to evaluate patient for assessment of nutritional status Completed visit with patient and spouse today as part of face to face care. SUBJECTIVE Mr. Jennings is a 73 y.o. male admitted for Sepsis (HCC) Paracentesis 08/03 (-682 mL) Pertinent History: autoimmune hepatitis complicated by cirrhosis with sequelae of portal venous hypertension including splenomegaly, upper abdominal and esophageal varices, ascites, portal colopathy;chronic thrombocytopenia; hypertension; hyperlipidemia; possible atrial fibrillation ; history of DVT; T2DM (A1c 6.0 08/2023), s/p umbilical and left inguinal hernia repair 08/2023 Medical History[1] Surgical History[2] Current Nutrition: Discussed current diet order. Added daily order of strawberry Premier Protein per patient preference. Percentage of Meals Eaten for the past 72 hrs: Percent Meals Eaten (%) 08/04/24 1103 100 08/03/24 1735 100 08/03/24 1317 50 Nutrition Prior to Admission: Patient report stable meal intake prior to admission - typically three meals per day. Does include a source of protein with most meals. Appetite is increased compared toafter surgery in August 2023. Eats well-rounded meals per spouse. Reports weight loss from 140 lbs inJ2023 to 120 lbs about 1 month ago. Patient endorses noticing fluid weight for at least 1 month. Patient uses the salt shaker only occasionally. May use salt when eating a baked potato, otherwisejust pepper. Patient has used Premier Protein. Patient reports taking iron and vitamin D3. Nutrition Education/Counseling: Discussed nutrition in setting of cirrhosis: limiting sodium intake, including a source of protein with each meal, continuing to eat meals consistently, and asking histeam how much fluid he should be drinking per day. Discussed option to add a general daily multivitamin with minerals. Provided Nutrition For People With Liver Disease [id number]. Food Allergies/Intolerances: Allergies[3] OBJECTIVE Current nutrition orders: Dietary Orders (From admission, onward) Start Ordered 08/04/24 1356 Oral supplement -Supplement; Premier Protein (strawberry); 1 each; Take at: Morning snack (Oral Nutrition Supplement) Until discontinued Question Answer Comment Type: Supplement Supplement: Premier Protein (strawberry) Size: 1 each Take at: Morning snack 08/04/24 1355 08/02/24 2326 Adult Diet Regular; 2,000 mg Na; 1500 mL Fluid (Adult Diet) Diet effective now Question Answer Comment Diet texture: Regular Sodium: 2,000 mg Na Fluid total / 24hr: 1500 mL Fluid 08/02/24 2326 Pertinent Labs: Last 3 results Lab Units 08/04/24 0842 08/04/24 0504 08/03/24 0404 08/02/24 1749 SODIUM P mmol/L -- -- -- 131* SODIUM mmol/L 133* 133* 133* -- POTASSIUM mmol/L 3.8 4.0 3.6 -- POTASSIUM P mmol/L -- -- -- 3.7 CHLORIDE P mmol/L -- -- -- 100 CHLORIDE mmol/L 105 107 107 -- BUN P mg/dL -- -- -- 23 BUN mg/dL 14 16 19 -- CREATININE mg/dL 1.15 1.16 1.08 1.18 PHOSPHORUS INORGANIC P mg/dL -- -- -- 1.7* PHOSPHORUS INORGANIC mg/dL 2.3* 2.2* 2.7 -- CALCIUM P mg/dL -- -- -- 9.2 CALCIUM mg/dL 7.8* 7.8* 8.2* -- MAGNESIUM RL mg/dL -- -- -- 1.7 MAGNESIUM mg/dL 2.2 -- 1.7 -- Low phosphorus Lab Results Component Value Date/Time Iron 48 (L) 08/26/2023 04:38 AM Percent Saturation 23 08/26/2023 04:38 AM Total Iron Binding Capacity 211 (L) 08/26/2023 04:38 AM Ferritin, S 71 08/26/2023 04:38 AM C-Reactive Protein (CRP), S 15.8 (H) 08/02/2024 05:49 PM Chewing and Swallowing: No concerns per patient GI Function: Last BM Date: 08/04/24, [place] Stool Chart: Type 5: Soft blobs with clear-cut edges (per pt assessment) Edema: None documented Integumentary/Wounds: Lines/Drains/Airways Wound Duration Wound 03/30/24 Abdomen Lateral;Right paracentesis site 127 days Wound 08/03/24 Abdomen Medial;Right 1 day Medications: ciprofloxacin, 500 mg, oral, BID before morning and evening meals furosemide, 40 mg, oral, Daily insulin aspart, 0-13 Units, subcutaneous, TID pantoprazole, 40 mg, oral, Daily before morning meal sodium chloride, 3 mL, intravenous, Q12H XU spironolactone, 50 mg, oral, Daily Anthropometrics: Height: 172.7 cm Admission Weight: 62.8 kg (08/02/2024) Current Weight: 63.9 kg (08/04/2024) BMI (Calculated): 21.4 kg/m?? Weight change since admission: 1.1 kg Net IO Since Admission: 899 mL [08/04/24 1410] Weight history: Mild fat loss and moderate muscle loss noted. Question whether weight loss is masked by fluid. Wt Readings from Last 12 Encounters: 08/04/24 63.9 kg 03/02/24 62 kg 02/24/24 64.9 kg 02/03/24 60.4 kg 01/13/24 61.2 kg 12/08/23 58.7 kg 11/18/23 61.4 kg 11/04/23 58.6 kg 10/21/23 59.9 kg 10/16/23 63.5 kg 09/30/23 58.9 kg 09/10/23 57.5 kg ASSESSMENT / PLAN Nutrition Diagnosis: Malnutrition (undernutrition) related to chronic illness as evidenced by meeting malnutrition criteria per AND/ASPEN guidelines. Initiated Malnutrition Assessment: ASPEN Criteria of Malnutrition: Nutritional Status: Non-severe (moderate) Malnutrition Malnutrition in the Context of: Chronic Illness Based on: Energy Intake: No Change Interpretation of Weight Loss: Unable to Assess Body Fat: Mild Loss Muscle Mass: Moderate Loss Discussed muscle loss with patient and spouse. Patient's spouse shared patient has felt weaker, making tasks like mowing the lawn challenging Estimated Needs: Total Calorie Needs: 3910-5196 calories/day Method to Estimate Energy Needs: kcal/kg (30-35 kcal/kg) Weight Used for Equation Calculations: 62.8 kg Total Protein Needs: 63 - 94 grams/day (Method to Estimate Protein Needs (g/kg): 1 - 1.5 gm/kg) Weight Used to Calculate Protein Needs (Kg): 62.8 kg Nutrition Intervention: Interventions: Medical food supplement, Vitamin and mineral supplements, Provide education to increase nutrition knowledge, Provide counseling strategies to apply nutrition knowledge Monitoring/Evaluation: Nutrition parameter to monitor: Meals/Supplement Intake, Weight Status, Pertinent Labs, Fluid Balance, Ascites/Edema, and Comparative Standards Desired Outcome: Consume adequate nutrition orally Improve nutritional status and promote favorable weight trending Adequate stooling Recommendations: Start a daily multivitamin with minerals: Theragran M Monitor and replace electrolytes as needed (low phosphorus) Clinical Nutrition will continue to follow. For questions about patient's nutritional care please contact pager [phone] on weekdays 07:30-16:00 or [phone] on weekends/holidays ([facility]) [phone]. [1] Past Medical History: Diagnosis Date Arthritis Rheumatoid (HCC) Cataract Diabetes Mellitus NOS Gastroesophageal Reflux Disease NOS Hyperlipidemia Hypertension NOS Liver Disease Other Specified Health Status Renal Disease Stricture Esophagus Varix Esophageal (HCC) [2] Past Surgical History: Procedure Laterality Date APPENDECTOMY HERNIA REPAIR HYDROCELECTOMY Left 09/04/2023 Procedure: HYDROCELECTOMY.; Surgeon: Elen Gomes M.D., Ph.D.; Location: [facility] JOINT REPLACEMENT OTHER CONVERTED SHX (SEE COMMENT) N/A 03/27/1999 >Esophagogastroduodenoscopy with Biopsy and Endoscopic Ultrasound OTHER CONVERTED SHX (SEE COMMENT) N/A 06/25/1999 >Esophagogastroduodenoscopy with Biopsy OTHER SURGICAL HISTORY REPAIR HERNIA UMBILICAL WITHOUT MESH N/A 09/04/2023 Procedure: REPAIR HERNIA UMBILICAL WITHOUT MESH.; Surgeon: Elen Gomes M.D., Ph.D.; Location: [facility] REPAIR ROTATOR CUFF SHOULDER Right 2009 ROBOTIC-ASSISTED HIP TOTAL ARTHROPLASTY Left 05/13/2023 Procedure: ROBOTIC-ASSISTED HIP TOTAL ARTHROPLASTY, LEFT.; Surgeon: Pete Rojas M.D.; Location: [facility] OR TOTAL HIP ARTHROPLASTY Right 2020 [3] Allergies Allergen Reactions Acetaminophen Other (see comments) and GI intolerance drug induced hepititis Drug induced Hepatitis Drug induced Hepatitis 2-Octyl Cyanoacrylate Itching Celecoxib Other (see comments) Patient hospitalized for Acute Kidney Injury for 4 days after taking Celebrex preop while on Lisinopril Patient hospitalized for Acute Kidney Injury for 4 days after taking Celebrex preop while on Lisinopril Kidney Failure * Ana Snell O.T., O.T.Del - 08/04/2024 9:15 AM CDT Occupational Therapy [facility] Inpatient Evaluation/Treatment SUBJECTIVE Patient's Name: Niko Jennings Referring/Attending Provider: Issac Irwin M.D. Reason for Referral: Occupational Therapy Evaluation and Treatment Onset Date: 08/02/2024 PERTINENT MEDICAL / SURGICAL HISTORY: Medical History[1] Surgical History[2] History of Present Illness: Niko Jennings is a 73 y.o. male who was admitted to [facility] in [place] on 08/02/2024 for Acidosis Lactic [E87.29] Illness Febrile [R50.9] Sepsis (HCC) [A41.9]. Relevant Medical History: Mr. Niko Jennings is a 73 y.o. male who presents with sepsis. He presented to [facility] ED today for evaluation of generalized weakness and malaise for 2-3 days. Precautions Other Precautions: Fall (history of orthostatic hypotension this hospitalization) Falls screen: Fall in the last 12 months: No Are you fearful of falling: No Pain Assessment: Pain not reported during session. Patient/Caregiver Goals: Discharge home Subjective Comments: Patient greeted in bed and agreeable to therapy session. Home Living and Equipment: Lives with: Spouse/Significant other Type of Home: House Home Layout: + basement Able to live on main level with bedroom/bathroom Home Access: Stairs to enter: Number of steps: 1, Railing: no handrails Bathroom Accessibility: Accessible via walker Shower: Walk-in Shower Bathroom Equipment: Hand-held shower head, Built-in shower seat Toilet: Standard Toilet Toilet Equipment: None Assistive Device Owned: Front wheeled walker Adaptive Equipment Owned: Stamp Clerk, Long Handled Shoe Horn Other DME Owned: Regular flat bed Prior Level of Function and Mobility: Basic Activities of Daily Living: Independent Instrumental Activities of Daily Living: Independent Shared with family member Functional Mobility: Independent OBJECTIVE Vital Signs: Vitals taken during session: Sitting edge of bed: Blood pressure: 102/74 mmHg and MAP: 82 Standing: Blood pressure: 101/68 mmHg Patient asymptomatic throughout all activity and change in positions. Evaluation Assessment: STRENGTH: Not formally assessed but appears within functional limits based on observation RANGE OF MOTION: Not formally assessed but appears within functional limits based on observation BALANCE: Static Sitting: Good (Maintains balance without support) Dynamic Sitting: Good (Maintains balance without support) Static Standing: Good (Maintains balance without support) Dynamic Standing: Good (Maintains balance without support) ACTIVITY TOLERANCE: Endurance: Tolerates 10-20 minutes of activity Outcome Measures: -[facility] Inpatient Short Form: Putting on and taking off regular lower body clothing?: None Putting on and taking off regular upper body clothing?: None Taking care of personal grooming such as brushing teeth?: None Bathing (including washing, rinsing, drying)?: None Toileting, which includes using toilet, bedpan, or urinal?: None Eating meals?: None Daily Activities Raw Score (max 24): 24 Daily Activities Standardized Score: 57.54 Interpretation: Based on scoring guidelines using the raw score value: Those going to home had an average score at or above 18 Those going to facility had an average score at or below 17 Clinicians answer the [facility] Inpatient Short Form based on observed patient activity and/or clinical judgment (patient can be scored without physically performing each activity). The -PAC is one ofmany factors to consider when discharge planning. Cognition: No observable concerns with cognition at this time Therapeutic Interventions: ACTIVITIES OF DAILY LIVING: GROOMING - Assist Level: independent - Patient Location: standing at sink - Activity: simulated task - Therapist Delivery: assessed - Assist/Cues Provided: none - simulated walking and standing at sink, completed independently. Patient reported he completed grooming tasks at sink without difficulty earlier in morning prior to OT session LOWER BODY DRESSING - patient presented dressed with his own boxer briefs on. Patient reported he completed dressing onhis own without difficulty. TOILETING - Assist Level: independent - Patient Location: toilet - Activity: Simulated tasks - Therapist Delivery: assessed - Assist/Cues Provided: none BED MOBILITY: SUPINE TO SIT - Assist Level: modified independent - Device: None - Therapist Delivery: assessed - Assist/Cues Provided: none FUNCTIONAL TRANSFERS: SIT<>STAND - Assist Level: independent - Device: no assistive device and gait belt - Surface: bed, chair, toilet - Therapist Delivery: assessed - Assist/Cues Provided: none TOILET TRANSFER - Assist Level: independent - Device: no assistive device and gait belt - Approach: to and from, ambulating - Surface: toilet - Therapist Delivery: assessed - Assist/Cues Provided: none FUNCTIONAL MOBILITY: Mobility performed to practice household distances for long distance mobility in unit with independence and no assistive device and gait belt In-room mobility performed with independence and no assistive device and gait belt Education/Training Provided: Provided education on role of occupational therapy in the acute setting. Collaborated with patient and/or family on goals and plan of care. Call light safety: - Instructed patient in the functional use of the call light device and review of appropriate scenarios for use. Education has the ultimate goal to increase safety and reduce delirium through appropriate access to nursing staff and environmental controls. Bathroom DME: - Educated patient/caregiver regarding recommended use of bathroom safety equipment to optimize safety during bathing and toileting. Recommended DME: shower chair Home Safety/Fall Prevention: - Educated patient/caregiver regarding home safety and fall prevention strategies to promote safetyand independence. Caregiver Assistance: - Educated patient and/or caregiver on level of assistance recommended at discharge. Activity Recommendations During Hospitalization: Educated patient and/or caregiver on the importance of activity and mobility to improve pulmonary function/hygiene, activity tolerance, strength, and overall well-being while in hospital. - Eat ALL meals in chair - Ambulate/transfer into chair 3-5x/day - Active engagement in daily self-care routine (hygiene and grooming, etc.) Activity Modification: - Educated and instructed patient on activity modification and how to apply those techniques to activities of daily living. Energy Conservation: - Educated and instructed patient on energy conservation and how to apply those techniques to activities of daily living. Orthostatic Hypotension: - Educated patient on orthostatic hypotension causes and symptoms, and management strategies to reduce these symptoms. Team Communication: The patient's status was discussed and coordination of care occurred with RN, PT Patient was left in bedside chair at end of session with call light in reach, all needs met and questions answered. Assessment Discharge Therapy Needs - OT: No further skilled therapy If skilled therapy is recommended, skilled therapy can include occupational therapy provided in home health, outpatient or post-acute facility. The location of these services is determined by patient's care team in partnership with patient/family. Level of Care Needed - OT: Assistance with meal preparation, Assistance with transportation, Assistance with housekeeping, Assistance with shopping Barriers to Discharge Home: None Clinical Impression: Patient currently completing functional mobility/transfers and ADL's without assistive devices, andwithout physical assist. Patient tolerated in room and bathroom mobility, and long distance mobility in unit with good tolerance, and overall good safety/stability. Patient did not present with orthostatic hypotension and asymptomatic throughout today's session. Patient reports generalized weaknesswith which he initially presented to the hospital with has largely resolved and he feels at/near his functional baseline. Patient with very slight deficits with generalized weakness however without significant functional impact on his ADL's/mobility at this time. Benefitted from OT services for further activity progression and education for home safety going including fall prevention, activity modifications, bathroom DME/safety, energy conservation, and orthostatic hypotension management application to ADL's/mobility. Patient reports no questions/concerns with return home with spouse support when medically ready. Patient reports no concerns with mobility/transfers and stairs at this time and defers PT consult as there are no concerns with these areas and he feels at/near his baseline in this regard. OT to sign off. Patient in agreement, and in agreement with PT signing off as well. Communication completed withPT. Recommended patient to continue activity while hospitalized as able/appropriate as noted below withnursing staff to promote/maintain his endurance/strength and to continue to use call light and havestaff present for medical status monitoring. Patient verbalized understanding. No further skilled OT needs indicated. OT to sign off. Please reconsult if patient experiences significant functional status change. In-Hospital Activity and Mobility Recommendations: - Transfer into chair 3x/day, walking 3-4x/day with stand by assistance - Recommend position changes every 2 hours - Ambulate to bathroom for toileting - Eat ALL meals in chair - Active engagement in daily self-care routine (oral cares, face washing, combing hair) Plan Functional Goals: OT Goal #1: Patient and/or caregiver will demonstrate understanding of home safety, activity modifications, and durable medical equipment/adaptive equipment to optimize safe discharge OT Goal #1 Status: Achieved OT Goal #2: Patient will complete toileting (transfer, clothing management, hygiene) with modified independence to maximize independence and return to prior level of function OT Goal #2 Status: Achieved Progress: All OT goals achieved Rehab potential: Mr. Jennings has excellent potential to achieve established occupational therapy goals within the time frame outlined below. OT Frequency: OT Amount: 1 visit per day OT Frequency: One-time visit OT Inpatient Duration : Until goals are met or hospital discharge Requires Inpatient OT Follow-Up: No Plan: Discontinue OT Treatment interventions may include: Treatment Interventions: Self-care/home management Occupational Therapy Attestation Statement: Patient agrees with the plan of care and goals. Billing: Tiered OT Evaluation Codes: Comorbid Conditions: Arthritis, Other (Comment) (see above) Personal Factors: Age Occupational Profile and History review: Brief Performance Deficits: 1 - 3 performance deficits Evaluation Complexity: Low Time Spent with Patient Evaluations OT Eval - Low Complexity : 10 min Therapeutic Interventions Home Management Training (min): 14 min Time Tracking Total Timed Units (min): 14 min Total Treatment Time (min): 24 min Ana Snell O.T., O.T.D. [1] Past Medical History: Diagnosis Date Arthritis Rheumatoid (HCC) Cataract Diabetes Mellitus NOS Gastroesophageal Reflux Disease NOS Hyperlipidemia Hypertension NOS Liver Disease Other Specified Health Status Renal Disease Stricture Esophagus Varix Esophageal (HCC) [2] Past Surgical History: Procedure Laterality Date APPENDECTOMY HERNIA REPAIR HYDROCELECTOMY Left 09/04/2023 Procedure: HYDROCELECTOMY.; Surgeon: Elen Gomes M.D., Ph.D.; Location: [facility] JOINT REPLACEMENT OTHER CONVERTED SHX (SEE COMMENT) N/A 03/27/1999 >Esophagogastroduodenoscopy with Biopsy and Endoscopic Ultrasound OTHER CONVERTED SHX (SEE COMMENT) N/A 06/25/1999 >Esophagogastroduodenoscopy with Biopsy OTHER SURGICAL HISTORY REPAIR HERNIA UMBILICAL WITHOUT MESH N/A 09/04/2023 Procedure: REPAIR HERNIA UMBILICAL WITHOUT MESH.; Surgeon: Elen Gomes M.D., Ph.D.; Location: [facility] REPAIR ROTATOR CUFF SHOULDER Right 2009 ROBOTIC-ASSISTED HIP TOTAL ARTHROPLASTY Left 05/13/2023 Procedure: ROBOTIC-ASSISTED HIP TOTAL ARTHROPLASTY, LEFT.; Surgeon: Pete Rojas M.D.; Location: [facility] TOTAL HIP ARTHROPLASTY Right 2020 * Yanna Zarate M.B.B.S. - 08/03/2024 8:38 AM CDTAssociated Order(s): IP CONSULT TO HEPATOLOGY Gastroenterology Service Consult Note SUBJECTIVE CHIEF COMPLAINT / REASON FOR CONSULTATION Fever, possible GI source in the background of cirrhosis Consulting Team: Medicine Team HISTORY OF PRESENT ILLNESS Niko Jennings is a 73 y.o. male who presents with fever and weakness. He has a history ofAIH related cirrhosis with portal hypertension including splenomegaly, upper abdominal and esophageal varices, ascites, portal colopathy; chronic thrombocytopenia; hypertension; hyperlipidemia; possible atrial fibrillation noted on a previous ECG of poor quality (CHADS2 Vasc 3); history of DVT (notcurrently on anticoagulation); T2DM (A1c 6.0 08/2023), s/p umbilical and left inguinal hernia repair 08/2023. He presented to [facility] ED today for evaluation of generalized weakness and malaise for 2-3 days. In the ED, he was febrile (38.2, 39), and intermittently hypotensive and tachypneic. Laboratory evaluation showed hemoglobin 11.9, platelets 47, leukocytes 9.9, glucose 170, sodium 131, bicarb 16, creatinine 1.18 (stable), normal magnesium, phosphorus 1.7, total bilirubin 1.7 (previously 1.4), direct bilirubin 0.7 (from 0.4), ALP 182 (previously 190), lactate 3.3- >2.7, CRP 15.8, ESR 40. Troponin 48->58. Influenza/COVID PCR was negative. UA showed ketones (5), protein, hemoglobin, 4-10 WBC, negative nitrites, glucose >1000. CT abdomen/pelvis showed mild ascites and mild subcutaneous edema, cirrhosis with sequelae of portal venous hypertension. Urine and blood cultures were obtained. He received zosyn, vancomycin, potassium, 3 L normal saline. He was admitted to [place] [address] for further management. Upon admission, he endorsed above history. He reported abdominal fullness and tenderness. He used to require frequent paracentesis but he has done well from that standpoint over the past 3 months. No dysuria, hematuria, urinary frequency, cough, chest pain. REVIEW OF SYSTEMS Pertinent positives and negatives reviewed as per HPI otherwise review of systems negative. OBJECTIVE VITAL SIGNS BP (!) 89/57 (BP Location: Right arm;Upper, Patient Position: Lying) Pulse 64 Temp 36.6 ??C (Oral) Resp 22 Ht 172.7 cm Wt 63.8 kg SpO2 98% BMI 21.39 kg/m?? PHYSICAL EXAMINATION Alert oriented, lying comfortably in bed, no acute distress Not icteric Abdomen soft, distended, ascites present Pedal edema absent No asterixis DIAGNOSTICS Labs: Recent Labs 08/03/24 0404 08/02/24 1749 WBC 5.7 9.9 H HGB 10.9 L 11.9 L PLT 45 L 47 L NA 133 L 131 L CL 107 100 BUN 19 23 CREATININE 1.08 1.18 CALCIUM 8.2 L 9.2 ALBUMIN 2.5 L 3.0 L BILITOT 1.9 H 1.7 H AST 86 H 39 ALT 29 29 ALKPHOS 150 H 182 H Intake/Output Summary (Last 24 hours) at 08/03/2024 0838 Last data filed at 08/03/2024 0740 Gross per 24 hour Intake 2350 ml Output 650 ml Net 1700 ml No data to display Imaging: CT Abdomen Pelvis with IV Contrast Result Date: 08/02/2024 Impression: 1. Cirrhosis with sequelae of portal venous hypertension. 2. No acute finding in the abdomen or pelvis or significant change since 11/04/2023. DX Chest AP or PA and Lateral 2 Views Result Date: 08/02/2024 Impression: Compared to 08/25/2023, resolution of patchy opacities within the lung bases. No new focal consolidation or pleural effusion. Reticular and linear opacities within both lung bases likely represent mild fibrotic changes. Remainder not significantly changed. Normal heart size. Postoperativechanges right shoulder. Mild anterior wedging of a lower thoracic vertebral body. US liver doppler IMPRESSION: 1. Cirrhosis without focal observation. Small volume residual ascites following paracentesis. 2. Patent hepatic and portal veins. MELD 3.0: 17 at 08/03/2024 11:13 AM MELD-Na: 17 at 08/03/2024 11:13 AM Calculated from: Serum Creatinine: 1.08 mg/dL at 08/03/2024 4:04 AM Serum Sodium: 133 mmol/L at 08/03/2024 4:04 AM Total Bilirubin: 1.9 mg/dL at 08/03/2024 4:04 AM Serum Albumin: 2.5 g/dL at 08/03/2024 4:04 AM INR(ratio): 1.3 at 08/03/2024 11:13 AM Age at listing (hypothetical): 73 years Sex: Male at 08/03/2024 11:13 AM ASSESSMENT / PLAN PROBLEM LIST: # fever # portal hypertension in the setting of AIH related cirrhosis # Elevated AST Niko Jennings is a 73y gentleman who has decompensated AIH related cirrhosis. He is not on any immunosuppresive therapy. Liver tests show mild elevation in bilirubin with elevation in AST. It is possible that he may have SBP however a paracentesis was not performed prior to starting antibiotics. Suggest a diagnostic paracentesis. 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 Additionally elevated AST does suggest potential relapse but difficult to interpret in this acute situation. Reasonable to trend liver labs for now. RECOMMENDATIONS: 1. Suggest diagnostic paracentesis, follow blood and urine cultures, continue antibiotics. Please have cultures sent from the ascitic fluid, if positive will need prolonged therapy. If negative, thencannot rule out SBP due to antibiotic exposure. 2. MAP target 65mmHg 3. Check CK, total IgG levels 4. Ok to hold diuretics temporarily, consider resuming at discharge pending clinical course 5. He has prior intolerance to carvedilol, nadolol can be considered in the outpatient setting This patient was staffed with Dr. Mike Warner, with the recommendations discussed with the primary team. Thank you for involving us in the care of this patient. We will continue to follow along. Please page the GI Hepatobiliary consult pager at [phone] with any questions or concerns. Dawna Gomez.B.S. Cosigned by Mike Warner M.D. at 08/03/2024 5:32 PM CDT Associated attestation - Mike Warner M.D. - 08/03/2024 5:32 PM CDT I reviewed the case with Dr. Zarate and saw the patient. I agree with the assessment and plan as documented in the fellow's note. documented in this encounter Nursing Notes * Lauren Altman R.N. - 08/05/2024 4:27 PM CDT Patient d/c to home with . Patient VSS at time of d/c. Goal: Patient will remain VSS. Patient will discharge today. Goal met. Vitals currently BP 111/73 (BP Location: Right arm;Upper, Patient Position: Sitting) Pulse 68 Temp 36.4 ??C (Oral) Resp 17 Ht 172.7 cm Wt 63.9 kg SpO2 99% BMI 21.42 kg/m?? Systolic (36hrs), Av , Min:85 , Max:113 Diastolic (36hrs), Av, Min:47, Max:85 Pain assessment: 0 - No pain/10; Location:Mid Abdomen Pain 2: /10; Location: Cardiac Regularity: Regular Cardiac Symptoms: Weakness Respiratory Pattern: Regular Respiratory Depth/Rhythm: Regular Respiratory Effort: Unlabored Current Diet Adult Diet Regular; 2,000 mg Na; 1500 mL Fluid starting at 08/026 Abdomen Inspection: Ascites Last BM Date: 08/04/24 Mood: Anxious (08/05/24744) Behavior: Appropriate for age (08/05/24744) Assistance Needed to Complete Above (Current) Activity: Independent (08/05/24744) * Neeta Baltazar M.S.N., R.N. - 08/04/2024 10:29 PM CDT Shift Goals: Clinical Goals for the Shift: Pt will remain free from falls for duration of shift. Identify possible barriers to meeting goals/advancing plan of care: Patient admitted for acute generalized weakness. End of Shift Summary: Patient goal met. VSS. Endorsing 0/10 pain. PO intake and output adequate; maintained 1.5 L fluid restriction and 2 g Na restriction. Transitioned from IV to PO antibiotic. Blood cultures pending. Monitored for bleeding, encephalopathy, and PO fluid intake. Patient states possible discharge 08/05 per conversation with provider. Patient resting comfortably in his room. Plan ofcare is progressing. Problem: Risk for Compromised Skin Integrity-Other Print Production Associate(s) Goal: Risk for Compromised Skin Integrity-Other Print Production Associate(s) Outcome: Progressing Problem: PAIN - ADULT Goal: PT VERBALIZES/DEMONSTRATES [...] free from fall/fall injury Outcome: Progressing Problem: Risk for Compromised Skin Integrity-Joey Activity Score 3 Goal: Achieve optimal activity to maintain or improve skin integrity. Outcome: Progressing Problem: Risk for Compromised Skin Integrity-Joey Sensory Perception Score 1, 2, or 3 Goal: Manage sensory perception deficits to maintain and/or improve skin integrity. Outcome: Progressing * Angely Britt R.N. - 08/04/2024 11:43 AM CDT Shift Goals: Clinical Goals for the Shift: OT evaluation Identify possible barriers to meeting goals/advancing plan of care: generalized weakness End of Shift Summary: OT evaluated patient and signed off. He is independent in his activities justrequires stand by assist with gait belt. * Neeta Baltazar M.S.N., R.N. - 08/03/2024 10:43 PM CDT Shift Goals: Clinical Goals for the Shift: Pt will remain free from falls for duration of shift. Identify possible barriers to meeting goals/advancing plan of care: Pt has generalized weakness andorthostatic hypotension positive. End of Shift Summary: Patient goal met. VSS; positive orthostatic hypotension result. 0/10 pain endorsed. PO intake and output adequate. Patient adhered to 1.5L fluid and 2g Na dietary restrictions. Blood cultures pending. Paracentesis removed 680mL fluid; puncture site clean, closed, open to air. PIV in hand infiltrated; 20 G placed in RFA. TTE and US of liver with doppler completed. Monitored for bleeding and encephalopathy. Patient call light appropriate, resting comfortably in his room. Plan of care is progressing. Problem: Risk for Compromised Skin Integrity-Other Print Production Associate(s) Goal: Risk for Compromised Skin Integrity-Other Print Production Associate(s) Outcome: Progressing Problem: PAIN - ADULT Goal: PT VERBALIZES/DEMONSTRATES [...] free from fall/fall injury Outcome: Progressing Problem: Risk for Compromised Skin Integrity-Joey Activity Score 3 Goal: Achieve optimal activity to maintain or improve skin integrity. Outcome: Progressing Problem: Risk for Compromised Skin Integrity-Joey Sensory Perception Score 1, 2, or 3 Goal: Manage sensory perception deficits to maintain and/or improve skin integrity. Outcome: Progressing documented in this encounter ED Notes * Malik Oswald M.D. 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 Over the past few days, the patient has been experiencing increasing fatigue and weakness. Today, the patient's fatigue worsened, prompting his presentation to the ED for evaluation. Here, the patient denies any chest pain, shortness of breath, nausea, vomiting, diarrhea, urinary symptoms, or recent sick contacts. He does endorse fever, chills, and intermittent abdominal pain that is not present today. The patient has no other concerns at this time. REVIEW OF SYSTEMS Constitutional: Positive for chills, fatigue and fever. Respiratory: Negative for shortness of breath. Cardiovascular: Negative for chest pain. Gastrointestinal: Negative for abdominal pain, diarrhea, nausea and vomiting. Genitourinary: Negative for dysuria, frequency and urgency. Neurological: Positive for weakness. OBJECTIVE Initial Vitals Temperature 08/02/24 1639 (!) 38.2 ??C Pulse Rate 08/02/24 1639 84 Heart Rate 08/02/24 1730 89 Resp Rate 08/02/24 1642 20 Blood Pressure 08/02/24 1639 115/65 SpO2 08/02/24 1639 94 % Pain Score 08/02/24 1728 4 PHYSICAL EXAMINATION Constitutional: Nursing note and vitals reviewed. No distress. HENT: Head: No signs of injury. Eyes: Conjunctivae are normal. Cardiovascular: Normal rate, regular rhythm and normal heart sounds. Pulmonary/Chest: Effort normal and breath sounds normal. There is normal air entry. No tachypnea. No respiratory distress. Abdominal: Soft. exhibits no distension. There is no abdominal tenderness. The patient has a small periumbilical hernia, but I did not appreciate any nonreducible defects. Musculoskeletal: General: No deformity. Cervical back: Normal range of motion. Neurological: Alert. Skin: Skin is warm and dry. Psychiatric: He has a normal mood and affect. ASSESSMENT/PLAN The patient is a 73 y.o. male who presents to the ED for evaluation of generalized weakness. Upon arrival to the ED, the patient is febrile with a temperature of 38.2 degrees C, but is otherwise vitally stable. The patient does not have any abdominal tenderness to palpation on exam. Differentials considered in this patient include viral syndrome, UTI, pneumonia, and SBP, among others. The patient denies anyrespiratory symptoms, however we will obtain viral swabs to assess for a possible infection. We will also obtain laboratory studies including CBC, BMP, Troponin, magnesium, hepatic function panel, inorganic phosphorus, CRP, lactate, urinalysis , and blood cultures. Additionally, we will obtain a chest x-ray to assess for possible pneumonia. The patient's final disposition is pending the findings and the ED course. Assessment and Plan I reviewed the following external records: office records and primary care records. ED Course as of 08/03/241815August 02, [id number] Initial blood work shows no significant leukocytosis, chronic stable anemia. Electrolytes shows mild hyponatremia, kidney function normal and reassuring, mild hypophosphatemia which will be replaced in the emergency department. 1845 Lactate for Sepsis with Reflex(!): Lactate 3.3(!) Fluid resuscitation initiated. 184 Troponin T, Baseline with 2 Hour/6 Hour Reflex Biomarker Panel(!): Troponin T, Baseline, 5th gen 48(!) Nonspecific elevation of his troponin, delta troponin will be obtained. 184 Influenza A/B, SARS CoV-2, PCR, Rapid Symptomatic: Influenza A, PCR, Rapid, V Negative Influenza B, PCR, Rapid, V Negative SARS CoV-2, PCR, Rapid, V Undetected SARS-CoV-2 & Flu A/B Specimen Source Swab, Nasopharynx Negative for COVID-19 influenza testing. 1845 No clear evidence of pneumonia nor evidence of urinary tract infection. 1845 DX Chest AP or PA and Lateral 2 Views IMPRESSION: Compared to 08/25/2023, resolution of patchy opacities within the lung bases. No new focal consolidation or pleural effusion. Reticular and linear opacities within both lung bases likely represent mildfibrotic changes. Remainder not significantly changed. Normal heart size. Postoperative changes right shoulder. Mild anterior wedging of a lower thoracic vertebral body. 184 [address] changes, question type 2 versus primary ACS. Story does not suggest primary ACS based on febrile illness with intermittent episodes of abdominal pain. [address] Ativan given no clear evidence of infectious etiology. 1905 Hepatic Function Panel(!): Bilirubin, Total, S 1.7(!) Bilirubin, Direct, S 0.7(!) Aspartate Aminotransferase (AST), S 39 Alanine Aminotransferase (ALT), S 29 Alkaline Phosphatase, S 182(!) Albumin, S 3.0(!) Protein, Total, S 7.1 Hepatic function tests not significantly changed from baseline 1954 Dipstick, Urine(!): Hemoglobin, QL Moderate(!) Leukocyte Esterase Negative Nitrite, U Negative Ketones 5(!) Glucose, U >=1000(!) No clear evidence of infectious pathology. 2003 Did discussed with our ED pharmacist with recommendation for Zosyn and vancomycin given unclear etiology of his symptoms and concern for sepsis criteria. 2037 CT Abdomen Pelvis with IV Contrast IMPRESSION: 1. Cirrhosis with sequelae of portal venous hypertension. 2. No acute finding in the abdomen or pelvis or significant change since 11/04/2023. 2132 No clear identifiable source, lactic acid is downtrending, suspect the elevated troponin is likely type 2, antibiotics have been initiated, fluid resuscitation has been initiated, we will recommend admission for ongoing inpatient care management. 3 We will initiate 3 L of fluids, bed has been requested. Final Diagnoses: as of 08/03/241815 Illness Febrile Acidosis Lactic Sepsis (HCC) Care Handoff Row Name 08/02/242155 Care Handoff Type of Handoff Admission handoff I have personally seen and examined this patient. I have fully participated in the care of this patient. I have reviewed all clinical information including history, physical exam, orders, and plan. Regee with the note of the resident. I personally performed the services described in this documentation, as scribed in my presence, andit is both accurate and complete. Malik Oswald M.D. 08/03/241815 * Anup Escalante M.D. 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 Niko Jennings is a 73 y.o. male who presented via EMS with generalized weakness and malaise for the last few days. Due to the lack of improvement urged him to seek emergency medical attention. He was given 500 mL of IVF NS in route. On arrival, he was febrile to 38.2 centigrade, though he was not tachycardic or hypotensive. Apart from reporting exhaustion, he denies chest pain,shortness of breath, nausea, vomiting, or diarrhea. He has had some abdominal pain that has fluctuated over the last few days, however he believes that this is more due to his history of umbilical hernia. He denies sick contacts. Medical history significant for decompensated cirrhosis in the setting of autoimmune hepatitis for which he is maintained on furosemide 40 mg and spironolactone 100 mg. He is not currently taking anyprophylactic antibiotics for SBP prevention. REVIEW OF SYSTEMS Constitutional: Positive for activity change (Lethargic, has been resting more), chills, fatigue and fever. HENT: Negative for congestion, facial swelling, postnasal drip, rhinorrhea, sinus pressure and sorethroat. Respiratory: Negative for cough, hemoptysis, chest tightness and shortness of breath. Cardiovascular: Negative for chest pain and leg swelling. Gastrointestinal: Positive for abdominal distention and abdominal pain (Fluctuating, see HPI). Negative for blood in stool, constipation, diarrhea, hematemesis, nausea and vomiting. Genitourinary: Negative for bladder incontinence, decreased urine volume, flank pain, frequency, hematuria and urgency. Skin: Icteric appearing Neurological: Positive for light-headedness (Since the beginning of his period of malaise). Negative for weakness. OBJECTIVE Initial Vitals Temperature 08/02/24 1639 (!) 38.2 ??C Pulse Rate 08/02/24 1639 84 Heart Rate 08/02/24 1730 89 Resp Rate 08/02/24 1642 20 Blood Pressure 08/02/24 1639 115/65 SpO2 08/02/24 1639 94 % Pain Score 08/02/24 1728 4 PHYSICAL EXAMINATION Constitutional: Nursing note and vitals reviewed. HENT: Head: Normocephalic and atraumatic. Eyes: Conjunctivae are normal. Cardiovascular: Normal rate and normal heart sounds. Pulses are strong. No murmur heard.Capillary refill: takes 3-5 seconds Pulmonary/Chest: Effort normal and breath sounds normal. He exhibits no retraction. Abdominal: Soft. Bowel sounds are normal. exhibits distension (Somewhat distended consistent with known ascites).There is no hepatosplenomegaly. There is no abdominal tenderness. There is no guarding. Neurological: Alert and oriented to person, place, and time. Nonfocal neurologic exam Skin: Skin is warm and dry. He is not diaphoretic. There is jaundice. ASSESSMENT/PLAN This is a 73-year-old male who is presenting with generalized malaise and fatigue who has a past medical history of decompensated cirrhosis in the setting of autoimmune hepatitis. He was febrile uponarrival. Workup done in the ED is concerning for an elevated lactate, up to 3.3, leukocytosis to 9.9, thrombocytopenia of 47 which is lower than his baseline; we interrogated for infectious blood cultures, urinalysis, chest x-ray, and a CT abdomen and pelvis. Given that there are signs pointing towards a sepsis syndrome, we started him on IV vancomycin and Zosyn, for broad-spectrum empiric coverage. Differentials that we considered include SBP given his history of cirrhosis in the setting of autoimmune hepatitis, though he has a nontender abdominal exam; when visualized with ultrasound in the emergency department, we did not identify a sufficient pocket of fluid with which we could obtain a paracentesis. In addition, given the degree of thrombocytopenia, we did not feel that it would be safeto attempt at bedside. Otherwise, patient does not have a clear infectious source, based on a clearchest x-ray, and a reassuring urinalysis. The CT abdomen and pelvis demonstrated consistent portal vein hypertension, however no clear source of infection. In addition, the patient has had elevated troponins, with a 10 point delta change at two hours; initial ECG demonstrated T wave inversions in the apical leads however there was not associated reciprocal ST elevations on the posterior leads. He does not have a known cardiac history, however, we alsoplan to interrogate for structural causes via bedside cardiac ultrasound. ED Course as of 08/02/242154August 02, 2024 1700 Febrile to 38.2 ?? centigrade and SpO2 94% 1714 ECG 12 Lead T-wave inversions present in the anterior leads; follow-up with posterior EKG 1754 DX Chest AP or PA and Lateral 2 Views No evidence pneumonia 1754 ECG [address]-elevations in posterior EKG 1755 We have initiated an extensive infectious workup, given that there was not a clear source 1833 CBC with Differential, Blood(!): Hemoglobin 11.9(!) Hematocrit 33.9(!) Erythrocytes 3.51(!) MCV 96.6 RBC Distrib Width 14.6(!) Platelet Count 47(!) Leukocytes 9.9(!) Neutrophils 9.00(!) Lymphocytes 0.23(!) Monocytes 0.69 Eosinophils <0.03 Basophils <0.03 Slight leukocytosis with neutrophilic predominance; thrombocytopenic 47, which is decreased from his baseline 183 Troponin T, Baseline with 2 Hour/6 Hour Reflex Biomarker Panel(!): Troponin T, Baseline, 5th gen 48(!) Elevated 183 Lactate for Sepsis with Reflex(!): Lactate 3.3(!) Elevated 1833 SARS-CoV-2 & Flu A/B Specimen Source: Swab, Nasopharynx Negative COVID, influenza a and B 1833 Dipstick, POCT, Urine(!): Glucose, POCT, U 500(!) Ketone, POCT, U Trace(!) Specific [place], POCT, U 1.010 Blood, POCT, U Moderate(!) pH, POCT, Urine 6.0 Protein, POCT, U 30(!) Nitrites, POCT, U Negative Leukocytes, POCT, U Negative Moderate blood, some protein, and trace ketone present in the urine 1942 Hepatic Function Panel(!): Bilirubin, Total, S 1.7(!) Bilirubin, Direct, S 0.7(!) Aspartate Aminotransferase (AST), S 39 Alanine Aminotransferase (ALT), S 29 Alkaline Phosphatase, S 182(!) Albumin, S 3.0(!) Protein, Total, S 7.1 Consistent with previous hepatic panel 1942 C-Reactive Protein (CRP), S(!): 15.8 Elevated 2151 Sign-out was given to the medicine team; all questions were answered satisfactorily. Final Diagnoses: as of 08/02/242154 Illness Febrile Acidosis Lactic Sepsis (HCC) Anup Escalante M.D. Resident 08/02/242154 * Malgorzata Sharpe R.N. - 08/02/2024 4:40 PM CDT Presents via EMS for generalized weakness and fatigue. Alert and oriented. Positive fevers and chills. 1 L fluids administered via EMS. Initial Vitals Temperature 08/02/24 1639 (!) 38.2 ??C (100.8 ??F) Pulse Rate 08/02/24 1639 84 Heart Rate -- Resp Rate 08/02/24 1642 20 Blood Pressure 08/02/24 1639 115/65 SpO2 08/02/24 1639 94 % Pain Score -- Malgorzata Sharpe R.N. 08/02/24 164 documented in this encounter Miscellaneous Notes * Hospital Course - Issac Irwin M.D., Ph.D. - 08/03/2024 10:03 AM CDT Mr. Niko Jennings is a 73 y.o. man who presented with sepsis. 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 He presented to [facility] ED 08/02/24 for evaluation of generalized weakness and malaise for 2-3 days. Inthe ED, he was febrile (38.2, 39), and intermittently hypotensive and tachypneic. Laboratory evaluation showed hemoglobin 11.9, platelets 47, leukocytes 9.9, glucose 170, sodium 131, bicarb 16, creatinine 1.18 (stable), normal magnesium, phosphorus 1.7, total bilirubin 1.7 (previously 1.4), direct bilirubin 0.7 (from 0.4), ALP 182 (previously 190), lactate 3.3- >2.7, CRP 15.8, ESR 40. Troponin 48->58. Influenza/COVID PCR was negative. UA showed ketones (5), protein, hemoglobin, 4-10 WBC, negative nitrites, glucose >1000. Initial ECG showed sinus rhythm, PACs, left axis deviation, new RBBB with secondary ST-T abnormalities. Repeat ECG was unchanged. CXR showed resolution of patchy opacities within the lung bases, no new focal consolidation or pleural effusion, reticular and linear opacities within both lung bases likely represent mild fibrotic changes. CT abdomen/pelvis showed mild ascites and mild subcutaneous edema, cirrhosis with sequelae of portal venous hypertension. Urine and blood cultures were obtained. He received zosyn, vancomycin, potassium, 3 L normal saline. He was admitted to [place] [address] for further management. He was initially continued on empiric antibiotics in the setting of sepsis. CXR and UA showed no evidence of infection. Paracentesis on 08/03 shows 152 nucleated cells, 37% N; less likely SBP. Patient had no evidence of encephalopathy, bleeding. Patient's care was coordinated with GI. Patient continued to improve without signs of focal infection. With shared decision making, antibiotics continued to treat possibility of occult infection. Deescalated to ciprofloxacin; we recommend continued antibiotics through 08/07. Discussed decompensated cirrhosis, and focus on optimization of volume status. GI recommended furosemide 40, spironolactone 50, and follow up with PCP and outpatient GI specialist for continued optimization. documented in this encounter Plan of Treatment Upcoming Encounters Date Type Department Care Team (Late st Contact Info) Description 09/06/2024 1:00 PM CDT Appointment Department of Radiology, [facility], in [place], [place] [address] [place] [address] Marv Myrick M.D., M.P.H. [address] [place] [phone] 09/07/2024 11:10 AM CDT Appointment Department of Laboratory Medicine and Pathology, [facility] in [place], [place] [address] [place] [address] Marv Myrick M.D., M.P.H. [address] [place] [phone] 09/07/2024 1:30 PM CDT Office Visit Division of Gastroenterology in [place], [place] [address] [place] [address] Marv Myrick M.D., M.P.H. [address] [place] [phone] Scheduled Orders Name Type Priority Associated Diagnoses Order Schedule Bacterial Culture, Aerobic + Susceptibility Microbiology Timed For man ual release during upcoming procedure for 1 Occurrences starting 08/05/2024 until 08/05/2024 Bacterial Culture, Anaerobic + Susceptibility Microbiology Timed For manual relea se during upcoming procedure for 1 Occurrences starting 08/05/2024 until 08/05/2024 documented as of this encounter Procedures Procedure Name Priority Date/Time Associated Diagnosis Comments US ABDOMEN LIMITED RAD - Routine (most inpatients and all outpatients) 08/05/2024 3:51 PM CDT GLUCOSE POCT, B Routine 08/05/2024 12:50 PM CDT GLUCOSE POCT, B Routine 08/05/2024 7:44 AM CDT RENAL FUNCTION PANEL, S Routine 08/05/2024 4:49 AM CDT HEPATIC FUNCTION PANEL, S Routine 08/05/2024 4:49 AM CDT CBC NO CALL BACK, REFLEX T/S Routine 08/05/2024 4:49 AM CDT MAGNESIUM, S Routine 08/05/2024 4:49 AM CDT GLUCOSE POCT, B Routine 08/04/2024 8:55 PM CDT GLUCOSE POCT, B Routine 08/04/2024 5:04 PM CDT GLUCOSE POCT, B Routine 08/04/2024 2:38 PM CDT GLUCOSE POCT, B Routine 08/04/2024 10:44 AM CDT RENAL FUNCTION PANEL, S Routine 08/04/2024 8:42 AM CDT HEPATIC FUNCTION PANEL, S Routine 08/04/2024 8:42 AM CDT MAGNESIUM, S Routine 08/04/2024 8:42 AM CDT IMMUNOGLOBULIN G (IGG), S Routine 08/04/2024 8:42 AM CDT CREATINE KINASE (CK), S Routine 08/04/2024 8:42 AM CDT GLUCOSE POCT, B Routine 08/04/2024 8:02 AM CDT RENAL FUNCTION PANEL, S Routine 08/04/2024 5:04 AM CDT HEPATIC FUNCTION PANEL, S Routine 08/04/2024 5:04 AM CDT SPSMA RESULT Routine 08/04/2024 5:04 AM CDT PROTHROMBIN TIME (PT), P Routine 08/04/2024 5:04 AM CDT CBC WITH DIFFERENTIAL, B Routine 08/04/2024 5:04 AM CDT GLUCOSE POCT, B Routine 08/03/2024 9:51 PM CDT GLUCOSE POCT, B Routine 08/03/2024 6:37 PM CDT (TTE) 2D ECHO DOPPLER COLOR Routine 08/03/2024 12:38 PM CDT GLUCOSE POCT, B Routine 08/03/2024 11:35 AM CDT DIC/ICF PROF Routine 08/03/2024 11:13 AM CDT COAG FACTOR X ACTIVITY ASSAY, P Routine 08/03/2024 11:13 AM CDT REPTILASE TIME, P Routine 08/03/2024 11:13 AM CDT SOLUBLE FIBRIN MONOMER Routine 08/03/2024 11:13 AM CDT PT MIX 1:1 Routine 08/03/2024 11:13 AM CDT COAG FACTOR VII ACTIVITY ASSAY, P Routine 08/03/2024 11:13 AM CDT COAG FACTOR V ACTIVITY ASSAY, P Routine 08/03/2024 11:13 AM CDT COAG FACTOR II ACTIVITY ASSAY, P Routine 08/03/2024 11:13 AM CDT US LIVER WITH LIVER DOPPLER RAD - Routine (most inpatients and all outpatients) 08/03/2024 10:23 AM CDT US PARACENTESIS WITH IMAGING GUIDANCE RAD - Routine (most inpatients and all outpatients) 08/03/2024 9:53 AM CDT BACTERIAL CULTURE, AEROBIC + SUSC Timed 08/03/2024 9:26 AM CDT Illness Febrile Acidosis Lactic Sepsis (HCC) CELL COUNT AND DIFFERENTIAL, BF Timed 08/03/2024 9:26 AM CDT Illness Febrile Acidosis Lactic Sepsis (HCC) GLUCOSE POCT, B Routine 08/03/2024 8:44 AM CDT HEPATIC FUNCTION PANEL, S Timed 08/03/2024 4:04 AM CDT CBC WITH DIFFERENTIAL, B Timed 08/03/2024 4:04 AM CDT PHOSPHORUS (INORGANIC), S Timed 08/03/2024 4:04 AM CDT MAGNESIUM, S Timed 08/03/2024 4:04 AM CDT LACTATE, B/P Timed 08/03/2024 4:04 AM CDT HEMOGLOBIN A1C, B Timed 08/03/2024 4:0 4 AM CDT BASIC METABOLIC PANEL, S/P Timed 08/03/2024 4:04 AM CDT TROPONIN T, 6H, 5TH GEN, P Timed 08/03/2024 12:09 AM CDT TROPONIN T, 2H/6H REFLEX, 5TH GEN, P Timed 08/02/2024 8:18 PM CDT LACTATE, B/P Timed 08/02/2024 8:[address] ABDOMEN PELVIS WITH IV CONTRAST RAD - Semiurgent (Fast; most ED patients; some inpatients) 08/02/2024 7:57 PM CDT HC URINALYSIS AUTO WO MICRO Routine 08/02/2024 6:19 PM CDT DIPSTICK, U STAT 08/02/2024 6:11 PM CDT MICROSCOPIC AUTOMATED STAT 08/02/2024 6:11 PM CDT BACTERIAL CULTURE, AEROBIC + SUSC, URINE STAT 08/02/2024 6:11 PM CDT PH, U STAT 08/02/2024 6:11 PM CDT OSMOLALITY, U STAT 08/02/2024 6:11 PM CDT URINALYSIS WITH MICROSCOPIC STAT 08/02/2024 6:11 PM CDT IFLU A, B, SARS COV-2, PCR, RAPID,V STAT 08/02/2024 6:03 PM CDT BACTERIA / NEDA CULTURE, BLOOD STAT 08/02/2024 6:00 PM CDT SEDIMENTATION RATE, B STAT 08/02/2024 6:00 PM CDT LACTATE FOR SEPSIS WITH REFLEX STAT 08/02/2024 5:49 PM CDT TROPONIN T, BASELINE, 5TH GEN, P STAT 08/02/2024 5:49 PM CDT HEPATIC FUNCTION PANEL, S STAT 08/02/2024 5:49 PM CDT GLUCOSE POCT, B STAT 08/02/2024 5:49 PM CDT BACTERIA / NEDA CULTURE, BLOOD STAT 08/02/2024 5:49 PM CDT CBC WITH DIFFERENTIAL, B STAT 08/02/2024 5:49 PM CDT C-REACTIVE PROTEIN (CRP), S/P STAT 08/02/2024 5:49 PM CDT PHOSPHORUS (INORGANIC), S STAT 08/02/2024 5:49 PM CDT MAGNESIUM, S STAT 08/02/2024 5:49 PM CDT BASIC METABOLIC PANEL, S/P STAT 08/02/2024 5:49 PM CDT ECG STAT 08/02/2024 5:33 PM CDT DX CHEST AP OR PA AND LATERAL 2 VIEWS RAD - Semiurgent (Fast; most ED patients; some inpatients) 08/02/2024 5:28 PM CDT ECG Routine 08/02/2024 4:50 PM CDT documented in this encounter Results * US Abdomen Limited (08/05/2024 3:51 PM CDT) Anatomical Region Laterality Modality Abdomen, Ultrasound RST LOS, Ultrasound ARZ LOS, Ultrasound FLA LOS N/A Ultrasound Impressions 08/05/2024 4:03 PM CDT Small amount of abdominal ascites. Paracentesis deferred. Narrative 08/05/2024 4:03 PM CDT EXAM: US ABDOMEN LIMITED COMPARISON: Paracentesis performed 08/03/2024 FINDINGS: Limited sonographic evaluation of the abdomen demonstrated a small amount of ascites. There are a few pockets of ascites with immediately adjacent small intestine. The findings were reviewed with the patient and he deferred repeat paracentesis at this time. Findings discussed with the ordering provider. Procedure Note Darryl Felix M.D. - 08/05/2024 EXAM: US ABDOMEN LIMITED COMPARISON: Paracentesis performed 08/03/2024 FINDINGS: Limited sonographic evaluation of the abdomen demonstrated asmall amount of ascites. There are a few pockets of ascites withimmediately adjacent small intestine. The findings were reviewed with thepatient and he deferred repeat paracentesis at this time. Findings discussed with the ordering provider. IMPRESSION: Small amount of abdominal ascites. Paracentesis deferred. us Issac Irwin M.D., Ph.D. IMG US PROCEDURES F inal Result * (ABNORMAL) Glucose, POCT (08/05/2024 12:50 PM CDT) Glucose, POCT, B 213(H) 70 - 140 mg/dL 08/05/2024 12:54 PM CDT PCLX Site Capillary 08/05/2024 12:54 PM CDT PCLX Last Intake 1-2 hours 08/05/2024 12:54 PM CDT PCLX Blood 08/05/2024 12:5 0 PM CDT 08/05/2024 12:54 PM CDT us Unknown Provider LAB POCT ORDERABLES-MANUAL Jovanna l Result Performing Organization Address City/[facility]/ZIP Co de Phone Number POC [facility] [address] [place] [address], [facility] PCLX [facility] POC [address] [place] [address] * (ABNORMAL) Glucose, POCT (08/05/2024 7:44 AM CDT) Glucose, POCT, B 141(H) 70 - 140 mg/dL 08/05/2024 7:50 AM CDT PCLX Site Capillary 08/05/2024 7:50 AM CDT PCLX Last Intake 1-2 hours 08/05/2024 7:50 AM CDT PCLX Blood 08/05/2024 7:44 AM CDT 08/05/2024 7:50 AM CDT us Unknown Provider LAB POCT ORDERABLES-MANUAL Jovanna l Result POC [facility] [address] [place] [address], [facility] PCLX [facility] POC [address] [place] [address] * (ABNORMAL) CBC no call back, reflex T/S HGB <8 (08/05/2024 4:49 AM CDT) Hemoglobin 10.7(L) 13.2 - 16.6 g/dL 08/05/2024 5:19 AM CDT DTL Hematocrit 30.5(L) 38.3 - 48.6 % 08/05/2024 5:19 AM CDT DTL Erythrocytes 3.13(L) 4.35 - 5.65 x10(12)/L 08/05/2024 5:19 AM CDT DTL MCV 97.4 78.2 - 97.9 fL 08/05/2024 5:19 AM CDT DTL RBC Distrib Width 14.9(H) 11.8 - 14.5 % 08/05/2024 5:19 AM CDT DTL Platelet Count 45(L) 135 - 317 x10(9)/L 08/05/2024 5:19 AM CDT DTL Leukocytes 3.0(L) 3.4 - 9.6 x10(9)/L 08/05/2024 5:19 AM CDT DTL Neutrophils 1.89 1.56 - 6.45 x10(9)/L 08/05/2024 5:19 AM CDT DHPM Lymphocytes 0.49(L) 0.95 - 3.07 x10(9)/L 08/05/2024 5:19 AM CDT DTL Monocytes 0.39 0.26 - 0.81 x10(9)/L 08/05/2024 5:19 AM CDT DTL Eosinophils 0.19 0.03 - 0.48 x10(9)/L 08/05/2024 5:19 AM CDT DTL Basophils 0.03 0.01 - 0.08 x10(9)/L 08/05/2024 5:19 AM CDT DTL Blood (Blood, Venous) 08/05/2024 4:49 AM CDT 08/05/2024 5:10 AM CDT Issac Irwin M.D., Ph.D. LAB BLOOD NON ADD-O N Final Result [facility] [address] [place] [address], [facility] DTL [facility] [address] [place] [address] DHPM [facility] [address] [place] [address] * Magnesium (08/05/2024 4:49 AM CDT) Magnesium, S 1.9 1.7 - 2.3 mg/dL 08/05/2024 5:54 AM CDT DTL Blood (Blood, Venous) 08/05/2024 4:49 AM CDT 08/05/2024 5:28 AM CDT us Issac Irwin M.D., Ph.D. LAB BLOOD ADD-ON Fi nal Result [facility] [address] [place] [address], [facility] DTL [facility] [address] [place] [address] * (ABNORMAL) Hepatic Function Panel (08/05/2024 4:49 AM CDT) Bilirubin, Total, S 0.9 0.0 - 1.2 mg/dL 08/05/2024 5:54 AM CDT DTL Bilirubin, Direct, S 0.4(H) 0.0 - 0.3 mg/dL 08/05/2024 5:54 AM CDT DTL Aspartate Aminotransferase (AST), S 73(H) 8 - 48 U/L 08/05/2024 5:54 AM CDT DTL Alanine Aminotransferase (ALT), S 27 7 - 55 U/L 08/05/2024 5:59 AM CDT DTL Alkaline Phosphatase, S 170(H) 40 - 129 U/L 08/05/2024 5:54 AM CDT DTL Albumin, S 2.5(L) 3.5 - 5.0 g/dL 08/05/2024 5:54 AM CDT DTL Protein, Total, S 6.0(L) 6.3 - 7.9 g/dL 08/05/2024 5:54 AM CDT DTL Blood (Blood, Venous) 08/05/2024 4:49 AM CDT 08/05/2024 5:28 AM CDT us Issac Irwin M.D., Ph.D. LAB BLOOD ADD-ON Fi nal Result [facility] [address] [place] [address], [facility] DTL [facility] [address] [place] [address] * (ABNORMAL) Renal Function Panel (08/05/2024 4:49 AM CDT) Potassium, S 3.9 3.6 - 5.2 mmol/L 08/05/2024 5:54 AM CDT DTL Sodium, S 133(L) 135 - 145 mmol/L 08/05/2024 5:54 AM CDT DTL Chloride, S 106 98 - 107 mmol/L 08/05/2024 5:54 AM CDT DTL Bicarbonate, S 19(L) 22 - 29 mmol/L 08/05/2024 5:54 AM CDT DTL Anion Gap 8 7 - 15 08/05/2024 5:54 AM CDT DTL BUN (Blood Urea Nitrogen), S 17 8 - 24 mg/dL 08/05/2024 5:54 AM CDT DTL Creatinine 1.21 0.74 - 1.35 mg/dL 08/05/2024 5:54 AM CDT DTL Estimated GFR (eGFR) 62 >=60 mL/min/BSA 08/05/2024 5:54 AM CDT DTL Comment: Estimated GFR calculated using the 2020 CKD_EPI creatinine equation. Calcium, Total, S 8.0(L) 8.8 - 10.2 mg/dL 08/05/2024 5:54 AM CDT DTL Glucose, S 158(H) 70 - 140 mg/dL 08/05/2024 5:54 AM CDT DTL Albumin, S 2.5(L) 3.5 - 5.0 g/dL 08/05/2024 5:54 AM CDT DTL Phosphorus (Inorganic), S 2.3(L) 2.5 - 4.5 mg/dL 08/05/2024 5:54 AM CDT DTL Blood (Blood, Venous) 08/05/2024 4:49 AM CDT 08/05/2024 5:28 AM CDT us Issac Irwin M.D., Ph.D. LAB BLOOD ADD-ON Fi nal Result [facility] [address] [place] [address], [facility] DTL [facility] [address] [place] [id number] * (ABNORMAL) Glucose, POCT (08/04/2024 8:55 PM CDT) Glucose, POCT, B 167(H) 70 - 140 mg/dL 08/04/2024 9:01 PM CDT PCLX Blood 08/04/2024 8:55 PM CDT 08/04/2024 9:01 PM CDT us Unknown Provider LAB POCT ORDERABLES-MANUAL Jovanna l Result Performing Organization Address [facility] Co de Phone Number [facility] [address] [place] [address], [facility] PCLX [facility] POC [address] [place] [address] * (ABNORMAL) Glucose, POCT (08/04/2024 5:04 PM CDT) Glucose, POCT, B 291(H) 70 - 140 mg/dL 08/04/2024 5:07 PM CDT PCLX Site Capillary 08/04/2024 5:07 PM CDT PCLX Last Intake 2-3 hours 08/04/2024 5:07 PM CDT PCLX Blood 08/04/2024 5:04 PM CDT 08/04/2024 5:07 PM CDT us Unknown Provider LAB POCT ORDERABLES-MANUAL Edit ed Result - Final Performing Organization Address City/[facility]/ZIP Co de Phone Number [facility] [address] [place] [address], [facility] PCLX [facility] POC [address] [place] [address] * (ABNORMAL) Glucose, POCT (08/04/2024 2:38 PM CDT) Glucose, POCT, B 236(H) 70 - 140 mg/dL 08/04/2024 2:44 PM CDT PCLX Site Capillary 08/04/2024 2:44 PM CDT PCLX Last Intake 3-4 hours 08/04/2024 2:44 PM CDT PCLX Blood 08/04/2024 2:38 PM CDT 08/04/2024 2:45 PM CDT Unknown Provider LAB POCT ORDERABLES-MANUAL Jovanna l Result Performing Organization Address [facility] Co de Phone Number POC [facility] [address] [place] [address], [facility] PCLX [facility]OC [address] [place] [address] * (ABNORMAL) Glucose, POCT (08/04/2024 10:44 AM CDT) Glucose, POCT, B 153(H) 70 - 140 mg/dL 08/04/2024 10:50 AM CDT PCLX Last Intake 1-2 hours 08/04/2024 10:50 AM CDT PCLX Blood 08/04/2024 10:4 4 AM CDT 08/04/2024 10:50 AM CDT Unknown Provider LAB POCT ORDERABLES-MANUAL Jovanna l Result Performing Organization Address [facility] de Phone Number [facility] [address] [place] [address], [facility] PCLX [facility] POC [address] [place] [address] * Magnesium (08/04/2024 8:42 AM CDT) Magnesium, S 2.2 1.7 - 2.3 mg/dL 08/04/2024 11:06 AM CDT DTL Blood (Blood, Venous) 08/04/2024 8:42 AM CDT 08/04/2024 10:03 AM CDT Issac Irwin M.D., Ph.D. LAB BLOOD ADD-ON Fi nal Result [facility] [address] [place] [address], [facility] [address] [place] [address] * (ABNORMAL) Hepatic Function Panel (08/04/2024 8:42 AM CDT) Bilirubin, Total, S 1.4(H) 0.0 - 1.2 mg/dL 08/04/2024 11:06 AM CDT DTL Bilirubin, Direct, S 0.6(H) 0.0 - 0.3 mg/dL 08/04/2024 11:06 AM CDT DTL Aspartate Aminotransferase (AST), S 77(H) 8 - 48 U/L 08/04/2024 11:06 AM CDT DTL Alanine Aminotransferase (ALT), S 31 7 - 55 U/L 08/04/2024 11:06 AM CDT DTL Alkaline Phosphatase, S 160(H) 40 - 129 U/L 08/04/2024 11:06 AM CDT DTL Albumin, S 2.6(L) 3.5 - 5.0 g/dL 08/04/2024 11:06 AM CDT DTL Protein, Total, S 6.1(L) 6.3 - 7.9 g/dL 08/04/2024 11:06 AM CDT DTL Blood (Blood, Venous) 08/04/2024 8:42 AM CDT 08/04/2024 10:03 AM CDT us Issac Irwin M.D., Ph.D. LAB BLOOD ADD-ON Fi nal Result [facility] [address] [place] [address], [facility] [address] [place] [address] * (ABNORMAL) Renal Function Panel (08/04/2024 8:42 AM CDT) Potassium, S 3.8 3.6 - 5.2 mmol/L 08/04/2024 11:06 AM CDT DTL Sodium, S 133(L) 135 - 145 mmol/L 08/04/2024 11:06 AM CDT DTL Chloride, S 105 98 - 107 mmol/L 08/04/2024 11:06 AM CDT DTL Bicarbonate, S 18(L) 22 - 29 mmol/L 08/04/2024 11:06 AM CDT DTL Anion Gap 10 7 - 15 08/04/2024 11:06 AM CDT DTL BUN (Blood Urea Nitrogen), S 14 8 - 24 mg/dL 08/04/2024 11:06 AM CDT DTL Creatinine 1.15 0.74 - 1.35 mg/dL 08/04/2024 11:06 AM CDT DTL Estimated GFR (eGFR) 66 >=60 mL/min/BSA 08/04/2024 11:06 AM CDT DTL Comment: Estimated GFR calculated using the 2020 CKD_EPI creatinine equation. Calcium, Total, S 7.8(L) 8.8 - 10.2 mg/dL 08/04/2024 11:06 AM CDT DTL Glucose, S 140 70 - 140 mg/dL 08/04/2024 11:06 AM CDT DTL Albumin, S 2.6(L) 3.5 - 5.0 g/dL 08/04/2024 11:06 AM CDT DTL Phosphorus (Inorganic), S 2.3(L) 2.5 - 4.5 mg/dL 08/04/2024 11:06 AM CDT DTL Blood (Blood, Venous) 08/04/2024 8:42 AM CDT 08/04/2024 10:03 AM CDT Issac Irwin M.D., Ph.D. LAB BLOOD ADD-ON Fi nal Result [facility] [address] [place] [address], [facility] [address] [place] [address] * (ABNORMAL) Immunoglobulin G (IgG) (08/04/2024 8:42 AM CDT) Immunoglobulin G (IgG), S 2230(H) 767 - 1590 mg/dL 08/04/2024 2:16 PM CDT [facility] Blood (Blood, Venous) 08/04/2024 8:42 AM CDT 08/04/2024 1:29 PM CDT Issac Irwin M.D., Ph.D. LAB BLOOD ADD-ON Fi nal Result [facility] [address] [place] [address] [facility] [address] [place] [address] * (ABNORMAL) CK (Creatine Kinase) (08/04/2024 8:42 AM CDT) Creatine Kinase (CK), S 508(H) 39 - 308 U/L 08/04/2024 11:06 AM CDT DT Blood (Blood, Venous) 08/04/2024 8:42 AM CDT 08/04/2024 10:03 AM CDT Issac Irwin M.D., Ph.D. LAB BLOOD ADD-ON Fi nal Result Performing Organization Address City/[facility] Co de Phone Number [facility] [address] [place] [address], [facility] [address] [place] [address] * (ABNORMAL) Glucose, POCT (08/04/2024 8:02 AM CDT) Glucose, POCT, B 141(H) 70 - 140 mg/dL 08/04/2024 8:42 AM CDT PCLX Site Capillary 08/04/2024 8:42 AM CDT PCLX Last Intake > 4 hours 08/04/2024 8:42 AM CDT PCLX Blood 08/04/2024 8:02 AM CDT 08/04/2024 8:42 AM CDT Unknown Provider LAB POCT ORDERABLES-MANUAL Jovanna l Result Performing Organization Address [facility] Co de Phone Number POC [facility] [address] [place] [address], [facility] PCLX [facility] [address] [place] [address] * (ABNORMAL) Morphology Eval (special smear) (08/04/2024 5:04 AM CDT) Neutrophilic Segs and Bands 75 50 - 75 % 08/04/2024 12:32 PM CDT DHPM Lymphocytes 11(L) 18 - 42 % 08/04/2024 12:32 PM CDT DHPM Monocytes 7 2 - 11 % 08/04/2024 12:32 PM CDT DHPM Eosinophils 5(H) 1 - 3 % 08/04/2024 12:32 PM CDT DHPM Basophils 2 0 - 2 % 08/04/2024 12:32 PM CDT DHPM Interpretation See Comment 12:32 PM CDT DHPM Comment:No schistocytes are seen. No platelet clumping. Reviewed by: Tech 08/04/2024 12:32 PM CDT DHPM Blood (Blood, Venous) 08/04/2024 5:04 AM CDT 08/04/2024 11:52 AM CDT Issac Irwin M.D., Ph.D. LAB BLOOD ADD-ON Fi nal Result Performing Organization Address [facility] Co de Phone Number [facility] [address] [place], [place] [address] [place] [address] [address] [place] [address] * (ABNORMAL) Prothrombin Time (PT) (08/04/2024 5:04 AM CDT) Prothrombin Time, P 14.2(H) 9.4 - 12.5 sec 08/04/2024 6:00 AM CDT DTL INR 1.3 0.9 - 1.1 08/04/2024 6:00 AM CDT DTL Comment: ----ADDITIONAL INFORMATION---- Standard intensity warfarin therapeutic range: 2.0 to 3.0 High intensity warfarin therapeutic range: 2.5 to 3.5 Blood (Blood, Venous) 08/04/2024 5:04 AM CDT 08/04/2024 5:42 AM CDT Issac Irwin M.D., Ph.D. LAB BLOOD ADD-ON Fi nal Result [facility] [address] [place] [address], [facility] DTL [facility] [address] [place] [address] * (ABNORMAL) Hepatic Function Panel (08/04/2024 5:04 AM CDT) Bilirubin, Total, S 1.2 0.0 - 1.2 mg/dL 08/04/2024 6:23 AM CDT DTL Bilirubin, Direct, S 0.5(H) 0.0 - 0.3 mg/dL 08/04/2024 6:23 AM CDT DTL Aspartate Aminotransferase (AST), S 75(H) 8 - 48 U/L 08/04/2024 6:23 AM CDT DTL Alanine Aminotransferase (ALT), S 30 7 - 55 U/L 08/04/2024 6:23 AM CDT DTL Alkaline Phosphatase, S 164(H) 40 - 129 U/L 08/04/2024 6:23 AM CDT DTL Albumin, S 2.6(L) 3.5 - 5.0 g/dL 08/04/2024 6:23 AM CDT DTL Protein, Total, S 6.0(L) 6.3 - 7.9 g/dL 08/04/2024 6:23 AM CDT DTL Blood (Blood, Venous) 08/04/2024 5:04 AM CDT 08/04/2024 6:01 AM CDT Issac Irwin M.D., Ph.D. LAB BLOOD ADD-ON Fi nal Result [facility] [address] [place] [address], [facility] DTL [facility] [address] [place] [address] * (ABNORMAL) Renal Function Panel (08/04/2024 5:04 AM CDT) Potassium, S 4.0 3.6 - 5.2 mmol/L 08/04/2024 6:23 AM CDT DTL Sodium, S 133(L) 135 - 145 mmol/L 08/04/2024 6:23 AM CDT DTL Chloride, S 107 98 - 107 mmol/L 08/04/2024 6:23 AM CDT DTL Bicarbonate, S 17(L) 22 - 29 mmol/L 08/04/2024 6:23 AM CDT DTL Anion Gap 9 7 - 15 08/04/2024 6:23 AM CDT DTL BUN (Blood Urea Nitrogen), S 16 8 - 24 mg/dL 08/04/2024 6:23 AM CDT DTL Creatinine 1.16 0.74 - 1.35 mg/dL 08/04/2024 6:23 AM CDT DTL Estimated GFR (eGFR) 66 >=60 mL/min/BSA 08/04/2024 6:23 AM CDT DTL Comment: Estimated GFR calculated using the 2020 CKD_EPI creatinine equation. Calcium, Total, S 7.8(L) 8.8 - 10.2 mg/dL 08/04/2024 6:23 AM CDT DTL Glucose, S 153(H) 70 - 140 mg/dL 08/04/2024 6:23 AM CDT DTL Albumin, S 2.6(L) 3.5 - 5.0 g/dL 08/04/2024 6:23 AM CDT DTL Phosphorus (Inorganic), S 2.2(L) 2.5 - 4.5 mg/dL 08/04/2024 6:23 AM CDT DTL Blood (Blood, Venous) 08/04/2024 5:04 AM CDT 08/04/2024 6:01 AM CDT us Issac Irwin M.D., Ph.D. LAB BLOOD ADD-ON Fi nal Result [facility] [address] [place] [address], [place] DTL [facility] [address] [place] [address] * (ABNORMAL) CBC with Differential, Blood (08/04/2024 5:04 AM CDT) Hemoglobin 10.7(L) 13.2 - 16.6 g/dL 08/04/2024 6:01 AM CDT DTL Hematocrit 30.1(L) 38.3 - 48.6 % 08/04/2024 6:01 AM CDT DTL Erythrocytes 3.06(L) 4.35 - 5.65 x10(12)/L 08/04/2024 6:01 AM CDT DTL MCV 98.4(H) 78.2 - 97.9 fL 08/04/2024 6:01 AM CDT DTL RBC Distrib Width 15.1(H) 11.8 - 14.5 % 08/04/2024 6:01 AM CDT DTL Platelet Count 40(CL) 135 - 317 x10(9)/L 08/04/2024 6:40 AM CDT DTL Comment: Before performing a bone marrow exam, repeat CBC to rule out spurious thrombocytopenia is suggested. Leukocytes 3.4 3.4 - 9.6 x10(9)/L 08/04/2024 6:40 AM CDT DTL Neutrophils 2.36 1.56 - 6.45 x10(9)/L 08/04/2024 6:01 AM CDT DHPM Lymphocytes 0.41(L) 0.95 - 3.07 x10(9)/L 08/04/2024 6:01 AM CDT DTL Monocytes 0.43 0.26 - 0.81 x10(9)/L 08/04/2024 6:01 AM CDT DTL Eosinophils 0.19 0.03 - 0.48 x10(9)/L 08/04/2024 6:01 AM CDT DTL Basophils 0.03 0.01 - 0.08 x10(9)/L 08/04/2024 6:01 AM CDT DTL Blood (Blood, Venous) 08/04/2024 5:04 AM CDT 08/04/2024 5:47 AM CDT us Issac Irwin M.D., Ph.D. LAB BLOOD ADD-ON Fi nal Result Performing Organization Address [facility] Co de Phone Number [facility] [address] [place] [address], [facility] DTL [facility] [address] [place] [address] DHPM [facility] [address] [place] [address] * (ABNORMAL) Glucose, POCT (08/03/2024 9:51 PM CDT) Glucose, POCT, B 205(H) 70 - 140 mg/dL 08/03/2024 9:53 PM CDT PCLX Site Capillary 08/03/2024 9:53 PM CDT PCLX Last Intake 3-4 hours 08/03/2024 9:53 PM CDT PCLX Blood 08/03/2024 9:51 PM CDT 08/03/2024 9:53 PM CDT us Unknown Provider LAB POCT ORDERABLES-MANUAL Jovanna l Result Performing Organization Address [facility] de Phone Number [facility] [address] [place] [address], [facility] PCLX [facility] [address] [place] [address] * (ABNORMAL) Glucose, POCT (08/03/2024 6:37 PM CDT) Glucose, POCT, B 292(H) 70 - 140 mg/dL 08/03/2024 6:40 PM CDT PCLX Site Capillary 08/03/2024 6:40 PM CDT PCLX Blood 08/03/2024 6:37 PM CDT 08/03/2024 6:40 PM CDT us Unknown Provider LAB POCT ORDERABLES-MANUAL Jovanna l Result [facility] [address] [place] [address], [place] PCLX [facility] [address] [place] [address] * (TTE) 2D ECHO DOPPLER COLOR (08/03/2024 12:38 PM CDT) Pathologist [facility] [place] Ejection Fraction 70 MC CV EIMS LV Mass Index 65 MC CV EIMS LV End-Diastolic Diameter 41 MC CV EIMS LV End-Systolic Diameter 25 MC CV EIMS LV End-Diastolic Volume 92 MC CV EIMS LV End-Systolic Volume 28 MC CV EIMS MV E Velocity 0.6 MC CV EIMS MV A Velocity 0.6 MC CV EIMS MV E/A 1 MC CV EIMS MV e' Velocity Medial 0.04 MC CV EIMS MV e' Velocity Lateral 0.07 MC CV EIMS MV E/e' Medial 15 MC CV EIMS MV E/e' Lateral 8.6 MC CV EIMS Left ventricular stroke volume index 46 MC CV EIMS Cardiac Output 5.13 MC CV EIMS Cardiac Index 2.91 MC CV EIMS LV Interventricular Septal Wall Thickness 9 MC CV EIMS LV Posterior Wall Thickness 9 MC CV EIMS LV Relative Wall Thickness 44 MC CV EIMS Tricuspid Annular S 0.15 MC CV EIMS AV mean gradient 4 MC CV EIMS Aortic valve area 2.68 MC CV EIMS Aortic Valve Dimensionless Index 0.64 MC CV EIMS LA Volume Index 34 MC CV EIMS Aortic Valve Systolic Peak Velocity 1.4 MC CV EIMS Anatomical Region Laterality Modality Echocardiography 08/03/2024 11:2 7 AM CDT Impressions 08/03/2024 1:45 PM CDT There are no previous [facility] echocardiograms available for comparison. Echo performed at the patient's bedside. Anemia, thyrotoxicosis, or another high output state could contribute to the increased Doppler velocities (Hemoglobin drawn today is 10.9 g/dL). LEFT VENTRICLE:Normal left ventricular chamber size. Sigmoid ventricular septum with basal septal prominence: 13 mm No dynamic left ventricular outflow tract obstruction at rest or with Valsalva. Calculated 2-D biplane volumetric left ventricular ejection fraction of 70% without the use of ultrasound enhancing agent. No regional wall motion abnormalities. Grade 1/3 left ventricular diastolic dysfunction, consistent with low to normal left ventricular filling pressure at rest. RIGHT VENTRICLE:Normal right ventricular chamber size by visual estimate. Normal right ventricular systolic function. Unable to detect peak tricuspid regurgitation velocity for pulmonary artery systolic pressure calculation. ATRIA:Normal left atrial size. Left atrial volume index 34 ml/m2. Normal right atrial size by visual estimate. CARDIAC VALVES:Trileaflet aortic valve. Thickened aortic valve. No aortic valve regurgitation. Mitral valve bowing. Trivial mitral valve regurgitation. Normal pulmonary valve. Normal pulmonary valve systolic velocities. Mild pulmonary valve regurgitation. Normal tricuspid valve. Trivial tricuspid valve regurgitation. OTHER ECHO FINDINGS:Normal inferior vena cava size with normal inspiratory collapse (>50%). Ascending aorta not well visualized. Abdominal aorta not visualized. No atrial level shunt by color flow imaging. No intracardiac mass or thrombus, but the left atrial appendage cannot be visualized adequately with transthoracic echo to exclude thrombus in this location. No pericardial effusion. Left pleural effusion. Prominent anterior epicardial fat layer. For the complete report, see the Order-Level Documents. Narrative 08/03/2024 1:45 PM CDT For the complete report, see the Order-Level Documents. Hemodynamics Heart Rate: 63 BPM Blood Pressure: 97 / 65 mmHg ECG: Sinus rhythm, Right bundle branch block Final Impressions 1. Normal left ventricular chamber size, no regional wall motion abnormalities, calculated 2-D biplane volumetric ejection fraction of 70%. 2. Left ventricular cardiac index 2.91 l/min/m2. 3. Grade 1/3 left ventricular diastolic dysfunction, consistent with low to normal left ventricular filling pressure at rest. 4. Normal right ventricular chamber size, normal systolic function, unable to detect peak tricuspid regurgitation velocity for pulmonary artery systolic pressure calculation. 5. No hemodynamically significant valvular heart disease. 6. Mitral valve bowing , trivial mitral regurgitation. 7. No pericardial effusion. 8. There are no previous [facility] echocardiograms available for comparison. Procedure Note Nilsa Stevens M.B.BMarcusS., M.H.S. - 08/03/2024 For the complete report, see the Order-Level Documents. Hemodynamics Heart Rate: 63 BPM Blood Pressure: 97 / 65 mmHg ECG: Sinus rhythm, Right bundle branch block Final Impressions 1. Normal left ventricular chamber size, no regional wall motionabnormalities, calculated 2-D biplane volumetric ejection fraction of70%. 2. Left ventricular cardiac index 2.91 l/min/m2. 3. Grade 1/3 left ventricular diastolic dysfunction, consistent with lowto normal left ventricular filling pressure at rest. 4. Normal right ventricular chamber size, normal systolic function, unableto detect peak tricuspid regurgitation velocity for pulmonary arterysystolic pressure calculation. 5. No hemodynamically significant valvular heart disease. 6. Mitral valve bowing , trivial mitral regurgitation. 7. No pericardial effusion. 8. There are no previous [facility] echocardiograms available forcomparison. Findings There are no previous [facility] echocardiograms available forcomparison. Echo performed at the patient's bedside. Anemia,thyrotoxicosis, or another high output state could contribute to theincreased Doppler velocities (Hemoglobin drawn today is 10.9 g/dL). LEFT VENTRICLE:Normal left ventricular chamber size. Sigmoid ventricularseptum with basal septal prominence: 13 mm No dynamic left ventricularoutflow tract obstruction at rest or with Valsalva. Calculated 2-D biplanevolumetric left ventricular ejection fraction of 70% without the use ofultrasound enhancing agent. No regional wall motion abnormalities. Grade1/3 left ventricular diastolic dysfunction, consistent with low to normalleft ventricular filling pressure at rest. RIGHT VENTRICLE:Normal right ventricular chamber size by visual estimate.Normal right ventricular systolic function. Unable to detect peaktricuspid regurgitation velocity for pulmonary artery systolic pressurecalculation. ATRIA:Normal left atrial size. Left atrial volume index 34 ml/m2. Normalright atrial size by visual estimate. CARDIAC VALVES:Trileaflet aortic valve. Thickened aortic valve. No aorticvalve regurgitation. Mitral valve bowing. Trivial mitral valveregurgitation. Normal pulmonary valve. Normal pulmonary valve systolicvelocities. Mild pulmonary valve regurgitation. Normal tricuspid valve.Trivial tricuspid valve regurgitation. OTHER ECHO FINDINGS:Normal inferior vena cava size with normal inspiratorycollapse (>50%). Ascending aorta not well visualized. Abdominal aorta notvisualized. No atrial level shunt by color flow imaging. No intracardiacmass or thrombus, but the left atrial appendage cannot be visualizedadequately with transthoracic echo to exclude thrombus in this location.No pericardial effusion. Left pleural effusion. Prominent anteriorepicardial fat layer. For the complete report, see the Order-Level Documents. us Issac Irwin M.D., Ph.D. CV ECHO PROCEDURES Final Result * Glucose, POCT (08/03/2024 11:35 AM CDT) Pathologist [facility] [place] Glucose, POCT, B 112 70 - 140 mg/dL 08/03/2024 11:38 AM CDT PCLX Site Capillary 08/03/2024 11:38 AM CDT PCLX Last Intake > 4 hours 08/03/2024 11:38 AM CDT PCLX Blood 08/03/2024 11:3 5 AM CDT 08/03/2024 11:38 AM CDT Unknown Provider LAB POCT ORDERABLES-MANUAL Jovanna l Result Performing Organization Address [facility] Co de Phone Number [facility] [address] PCLX [facility] [address] [place] [address] * (ABNORMAL) Coagulation Factor V Activity Assay (08/03/2024 11:13 AM CDT) [facility] Coag Factor V Assay, P 50(L) 70 - 165 % 08/04/2024 11:02 AM CDT DTL Comment: ----ADDITIONAL INFORMATION---- This test has been modified from the fabrication engineer's instructions. Its performance characteristics were determined by [facility] in a manner consistent with CLIA requirements. This test has not been cleared or approved by the U.S. Food and Drug Administration. Blood 08/03/2024 11:1 3 AM CDT 08/03/2024 2:17 PM CDT Issac Irwin M.D., Ph.D. LAB BLOOD ADD-ON Fi nal Result Performing Organization Address City/[facility] Co de Phone Number [facility] [address] DTL [facility] [address] [place] [address] * (ABNORMAL) Coagulation Factor II Activity Assay (08/03/2024 11:13 AM CDT) Coag Factor II Assay, P 54(L) 75 - 145 % 08/04/2024 10:55 AM CDT DT Comment: ----ADDITIONAL INFORMATION---- This test has been modified from the fabrication engineer's instructions. Its performance characteristics were determined by [facility] in a manner consistent with CLIA requirements. This test has not been cleared or approved by the U.S. Food and Drug Administration. Blood 08/03/2024 11:1 3 AM CDT 08/03/2024 2:17 PM CDT Issac Irwin M.D., Ph.D. LAB BLOOD ADD-ON Fi nal Result Performing Organization Address [facility] [place] [address], [facility] [place] [place] [address] * (ABNORMAL) Coag Factor X Assay, Plasma (08/03/2024 11:13 AM CDT) [facility] Coag Factor X Assay, P 55(L) 70 - 150 % 08/04/2024 10:55 AM CDT DT Comment: ----ADDITIONAL INFORMATION---- This test has been modified from the fabrication engineer's instructions. Its performance characteristics were determined by [facility] in a manner consistent with CLIA requirements. This test has not been cleared or approved by the U.S. Food and Drug Administration. Blood 08/03/2024 11:1 3 AM CDT 08/03/2024 2:17 PM CDT us Issac Irwin M.D., Ph.D. LAB BLOOD ADD-ON Fi nal Result Performing Organization Address City/[facility] [place] [address], [facility] [place] [address] * (ABNORMAL) Coagulation Factor VII Activity Assay (08/03/2024 11:13 AM CDT) [facility] Coa Factor VII Assay, P 50(L) 65 - 180 % 08/04/2024 10:55 AM CDT DT Comment: ----ADDITIONAL INFORMATION---- This test has been modified from the fabrication engineer's instructions. Its performance characteristics were determined by [facility] in a manner consistent with CLIA requirements. This test has not been cleared or approved by the U.S. Food and Drug Administration. Blood 08/03/2024 11:1 3 AM CDT 08/03/2024 2:17 PM CDT Issac Irwin M.D., Ph.D. LAB BLOOD ADD-ON Fi nal Result Performing Organization Address [facility] Co de Phone Number [address] [place] [address] * Reptilase Time, Plasma (08/03/2024 11:13 AM CDT) [facility] Reptilase Time, P 19.5 14.0 - 23.9 sec 08/03/2024 12:41 PM CDT DT Comment: ----ADDITIONAL INFORMATION---- This test has been modified from the fabrication engineer's instructions. Its performance characteristics were determined by [facility] in a manner consistent with CLIA requirements. This test has not been cleared or approved by the U.S. Food and Drug Administration. Blood 08/03/2024 11:1 3 AM CDT 08/03/2024 11:38 AM CDT us Issac Irwin M.D., Ph.D. LAB BLOOD ADD-ON Fi nal Result Performing Organization Address [facility] [place] [address], [facility] [place] [place] [address] * PT Mix 1:1 (08/03/2024 11:13 AM CDT) PT Mix 1:1 12.4 9.4 - 12.5 sec 08/03/2024 12:38 PM CDT DT Comment: ----ADDITIONAL INFORMATION---- This test has been modified from the fabrication engineer's instructions. Its performance characteristics were determined by [facility] in a manner consistent with CLIA requirements. This test has not been cleared or approved by the U.S. Food and Drug Administration. Blood 08/03/2024 11:1 3 AM CDT 08/03/2024 11:38 AM CDT us Issac Irwin M.D., Ph.D. LAB BLOOD ADD-ON Fi nal Result Performing Organization Address City/[facility]/ZIP Co de Phone Number [address] [place] [address] * Soluble Fibrin Monomer (08/03/2024 11:13 AM CDT) Pathologist [facility] Soluble Fibrin Monomer 8 <=8 mcg/mL 08/03/2024 12:42 PM CDT DT Comment: ----ADDITIONAL INFORMATION---- This test was developed and its performance characteristics determined by [facility] in a manner consistent with CLIA requirements. This test has not been cleared or approved by the U.S. Food and Drug Administration. Blood 08/03/2024 11:1 3 AM CDT 08/03/2024 11:38 AM CDT us Issac Irwin M.D., Ph.D. LAB BLOOD NON ADD-O N Final Result Performing Organization Address City/[facility]/ZIP Co de Phone Number [facility] [address] [place] [address] * (ABNORMAL) DIC/ICF Profile (08/03/2024 11:13 AM CDT) Prothrombin Time (PT), P 14.7(H) 9.4 - 12.5 sec 08/03/2024 12:37 PM CDT DTL INR 1.3 0.9 - 1.1 08/03/2024 12:37 PM CDT DTL Comment: ----ADDITIONAL INFORMATION---- Standard intensity warfarin therapeutic range: 2.0 to 3.0 High intensity warfarin therapeutic range: 2.5 to 3.5 Activated Partial Thrombopl Time, P 28 25 - 37 sec 08/03/2024 12:34 PM CDT DTL Thrombin Time (Bovine), P 25.5(H) 15.8 - 24.9 sec 08/03/2024 12:38 PM CDT DTL Fibrinogen, Clauss, P 260 200 - 500 mg/dL 08/03/2024 1:16 PM CDT DTL Comment: ----ADDITIONAL INFORMATION---- This test has been modified from the fabrication engineer's instructions. Its performance characteristics were determined by [facility] in a manner consistent with CLIA requirements. This test has not been cleared or approved by the U.S. Food and Drug Administration. D-DIMER, P 4223(H) <=500 ng/mL FEU 08/03/2024 12:34 PM CDT DTL Comment: ----ADDITIONAL INFORMATION---- D-dimer values less than or equal to 500 ng/mL fibrinogen equivalent units (FEU) may be used in conjunction with clinical pre-test probability to exclude deep vein thrombosis (DVT) and/or pulmonary embolism (PE). Reviewed By Almita Hightower M.D. 08/04/2024 2:16 PM CDT DTL DIC/ICF Prof Interpretation IMPRESSION: 1) No laboratory evidence of acute/decompensate d DIC/ICF. See comments. 2) Multiple laboratory abnormalities that in aggregate are most consistent with the patient's known liver disease. Recommend clinical correlation. See comments. COMMENTS: prolonged PT and decreased factor specific activities (FII, FV, FVII and FX) are consistent with the patient's known liver disease. Recommend clinical correlation. Marginally prolonged thrombin time (TT) and normal reptilase time (RT) is of unclear clinical significance considering the patient is not reported to be on anticoagulation. Elevation of fibrin D-dimer can occur in association with recent bleeding, surgery or thromboembolism, hypercoagulable state, liver disease. Although the negative soluble fibrin monomer complexes do not support a diagnosis of intravascular coagulation and fibrinolysis (ICF/DIC), clinical correlation is suggested. 08/04/2024 2:16 PM CDT DTL Blood (Blood, Venous) 08/03/2024 11:13 AM CDT 08/03/2024 11:38 AM CDT Narrative [facility] - 08/04/2024 2:16 PM CDT Specimen Information: Specimen ID: [id number] Specimen Type: Blood Specimen Collection Start Date: 08/03/2024 11:13 AM Specimen Received Date: 08/03/2024 11:38 AM Specimen ID: [id number] Specimen Type: Blood Specimen Collection Start Date: 08/03/2024 11:13 AM Specimen Received Date: 08/03/2024 11:38 AM Specimen ID: [id number] Specimen Type: Blood Specimen Collection Start Date: 08/03/2024 11:13 AM Specimen Received Date: 08/03/2024 11:38 AM Specimen ID: [id number] Specimen Type: Blood Specimen Collection Start Date: 08/03/2024 11:13 AM Specimen Received Date: 08/03/2024 11:38 AM Specimen ID: [id number] Specimen Type: Blood Specimen Collection Start Date: 08/03/2024 11:13 AM Specimen Received Date: 08/03/2024 11:38 AM Issac Irwin M.D., Ph.D. LAB BLOOD NON ADD-O N Final Result [facility] [address] [place] [address], [facility] [address] [place], [place] [id number] [place] [address] [place] [address] * US Liver with Liver Doppler (08/03/2024 10:23 AM CDT) Anatomical Region Laterality Modality Abdomen, Ultrasound RST LOS, Ultrasound ARZ LOS, Ultrasound FLA LOS N/A Ultrasound Impressions 08/03/2024 10:49 AM CDT 1. Cirrhosis without focal observation. Small volume residual ascites following paracentesis. 2. Patent hepatic and portal veins. Visualization Score: B: Moderate limitations (limitations may obscure small masses, especially < 1 cm). Narrative 08/03/2024 10:49 AM CDT EXAM: US LIVER WITH LIVER DOPPLER Exam performed with color and spectral Doppler analysis. COMPARISON: CT abdomen pelvis 08/02/2024, abdominal ultrasound 05/02/2024 FINDINGS: Liver: Coarse echotexture and nodular liver contour compatible with known cirrhosis. No focal observation. Doppler: The portal and hepatic veins are patent with antegrade flow. The main hepatic artery is patent with antegrade flow, RI at the upper limit of normal (0.83). Intrahepatic ducts: Not dilated where visualized. Common duct: Not dilated. Other: The gallbladder is mildly distended which may be due to fasting state. Borderline (3mm) gallbladder wall thickening, similar in appearance to ultrasound 05/02/2024 and likely reactive in the setting of chronic liver disease. Small volume residual ascites in the right upper quadrant. Procedure Note Jolynn Parnell M.B., B.Ch., B.A.O. - 08/03/2024 EXAM: US LIVER WITH LIVER DOPPLER Exam performed with color and spectral Doppler analysis. COMPARISON: CT abdomen pelvis 08/02/2024, abdominal ultrasound 05/02/2024 FINDINGS: Liver: Coarse echotexture and nodular liver contour compatible with knowncirrhosis. No focal observation. Doppler: The portal and hepatic veins are patent with antegrade flow. Themain hepatic artery is patent with antegrade flow, RI at the upper limitof normal (0.83). Intrahepatic ducts: Not dilated where visualized. Common duct: Not dilated. Other: The gallbladder is mildly distended which may be due to fastingstate. Borderline (3mm) gallbladder wall thickening, similar in appearanceto ultrasound 05/02/2024 and likely reactive in the setting of chronicliver disease. Small volume residual ascites in the right upper quadrant. IMPRESSION: 1. Cirrhosis without focal observation. Small volume residual ascitesfollowing paracentesis. 2. Patent hepatic and portal veins. Visualization Score: B: Moderate limitations (limitations may obscuresmall masses, especially < 1 cm). us Jose Robertson APRN, C.N.P., D.N.P. IM US OH OCEDURES Final Result * US Paracentesis with Imaging Guidance (08/03/2024 9:53 AM CDT) Anatomical Region Laterality Modality Abdomen, Ultrasound RST LOS, Ultrasound ARZ LOS, Procedure FLA LOS, Abdominal FLA LOS, Procedural, Procedural NWWI LOS N/A Ultrasound Impressions 08/03/2024 10:06 AM CDT Ultrasound-guided paracentesis. EP Narrative 08/03/2024 10:06 AM CDT EXAM: US PARACENTESIS WITH IMAGING GUIDANCE [...] TECHNIQUE: Sterile. 1% lidocaine for local anesthesia. US guidance. Location: Right upper quadrant peritoneal space. Needle size: 5 Fr centesis catheter. Volume aspirated: 682 ml Appearance of aspirate: Clear yellow Complication: None. Blood loss: None. Purpose: Diagnostic and therapeutic. PATIENT INSTRUCTIONS: Patient may be dismissed from the radiology department when dismissal criteria met. POST-PROCEDURE DIAGNOSIS: Ascites. Procedure Note Mohan Dorado M.D. - 08/03/2024 EXAM: US PARACENTESIS WITH IMAGING GUIDANCE PRE-PROCEDURE: [...] TECHNIQUE: Sterile. 1% lidocaine for local anesthesia. US guidance. Location: Right upper quadrant peritoneal space. Needle size: 5 Fr centesis catheter. Volume aspirated: 682 ml Appearance of aspirate: Clear yellow Complication: None. Blood loss: None. Purpose: Diagnostic and therapeutic. PATIENT INSTRUCTIONS: Patient may be dismissed from the radiologydepartment when dismissal criteria met. POST-PROCEDURE DIAGNOSIS: Ascites. IMPRESSION: Ultrasound-guided paracentesis. EP us Issac Irwin M.D., Ph.D. IMG US PROCEDURES F inal Result * Cell Count and Differential, Body Fluid (08/03/2024 9:26 AM CDT) Fluid Type Peritoneal /Paracente sis 08/03/2024 10:21 AM CDT DHPM Gross Appearance Serous 08/04/19 25 10:21 AM CDT DHPM Total Nucleated Cells 152 /mcL 08/03/2024 10:21 AM CDT DHPM Comment: ----REFERENCE VALUE---- Synovial: <150 /mcL Peritoneal: <500 /mcL Pleural: <500 /mcL Pericardial: <500 /mcL ----ADDITIONAL INFORMATION---- This test has been modified from the fabrication engineer's instructions. Its performance characteristics were determined by [facility] in a manner consistent with CLIA requirements. This test has not been cleared or approved by the U.S. Food and Drug Administration. Neutrophils 37 % 08/03/2024 11:02 AM CDT DHPM Comment: ----REFERENCE VALUE---- Synovial: <25% Peritoneal: <25% Pleural: <25% Pericardial: <25% Lymphocytes 6 Synovial <75% % 08/03/2024 11:02 AM CDT DHPM Monocytes/Macropha ges 57 Synovial <70% % 08/03/2024 11:02 AM CDT DHPM Comment See Comment 08/03/2024 11:02 AM CDT DHPM Comment:No blasts or maligna nt cells seen. Reviewed by: Tech 08/03/2024 11:02 AM CDT [facility] Fluid (Peritoneal Fluid) 08/03/2024 9:26 AM CDT Issac Irwin M.D., Ph.D. LAB BODY FLUIDS AND STOOLS ORDERABLES Final Result Performing Organization Address [facility] Co de Phone Number [facility] [address] [place] [address], [facility] 200 [place] [address] * Bacterial Culture, Aerobic + Susceptibility (08/03/2024 9:26 AM CDT) Bacterial Culture, Aerobic + Susc No growth after 5 days of incubation. 08/08/2024 9:44 AM CDT DTL Fluid (Peritoneal Fluid) 08/03/2024 9:26 AM CDT Narrative [facility] - 08/08/2024 9:44 AM CDT Bacterial Culture: Received Bactec aerobic and Bactec anaerobic bottles Issac Irwin M.D., Ph.D. LAB MICROBIOLOGY - GENERAL ORDERABLES Final Result Performing Organization Address [facility] de Phone Number [facility] [address] [place] [address], [facility] 200 [place] [address] * Glucose, POCT (08/03/2024 8:44 AM CDT) Glucose, POCT, B 119 70 - 140 mg/dL 08/03/2024 9:03 AM CDT PCLX Site Capillary 08/03/2024 9:03 AM CDT PCLX Last Intake > 4 hours 08/03/2024 9:03 AM CDT PCLX Blood 08/03/2024 8:44 AM CDT 08/03/2024 9:04 AM CDT [facility] Provider LAB POCT ORDERABLES-MANUAL Jovanna l Result Performing Organization Address City/[facility]/ZIP Co de Phone Number POC [facility] [address] [place] [address], [facility] PCLX [facility] POC [address] [place] [address] * (ABNORMAL) Hemoglobin A1c (08/03/2024 4:04 AM CDT) Hemoglobin A1c, B 7.6(H) 4.0 - 5.6 % 08/03/2024 4:56 AM CDT DTL Comment: Hemoglobin A1c values greater than or equal to 6.5 percent are diagnostic for diabetes mellitus. Diagnosis should be confirmed by repeat testing. In diabetic patients, HbA1c goals should be discussed with healthcare provider. Blood (Blood, Venous) 08/03/2024 4:04 AM CDT 08/03/2024 4:32 AM CDT Jose Robertson APRN, Mendy.N.P., D.N.P. LAB BLOOD ADD-ON Final Result Performing Organization Address City/[facility]/ZIP Co de Phone Number [facility] [address] [place] [address], [facility] [address] [place] [address] * Magnesium (08/03/2024 4:04 AM CDT) [facility] Magnesium, S 1.7 1.7 - 2.3 mg/dL 08/03/2024 4:59 AM CDT DTL Blood (Blood, Venous) 08/03/2024 4:04 AM CDT 08/03/2024 4:41 AM CDT Jose Robertson APRN, C.N.P., D.N.P. LAB BLOOD ADD-ON Final Result Performing Organization Address City/[facility]/ZIP Co de Phone Number [facility] [address] [place] [address], [facility] [address] [place] [address] * Phosphorus Inorganic (08/03/2024 4:04 AM CDT) Phosphorus (Inorganic), S 2.7 2.5 - 4.5 mg/dL 08/03/2024 4:59 AM CDT DTL Blood (Blood, Venous) 08/03/2024 4:04 AM CDT 08/03/2024 4:41 AM CDT Jose Robertson APRN C.N.P., D.N.P. LAB BLOOD ADD-ON Final Result Performing Organization Address [facility] Co de Phone Number [facility] [address] [place] [address] * Lactate (08/03/2024 4:04 AM CDT) Lactate, P 2.0 0.5 - 2.2 mmol/L 08/03/2024 5:11 AM CDT DTL Blood (Blood, Venous) 08/03/2024 4:04 AM CDT 08/03/2024 4:52 AM CDT Jose Robertson APRN, C.N.P., D.N.P. LAB BLOOD NON ADD-ON Final Result Performing Organization Address [facility] Co de Phone Number [facility] [address] [place] [address] * (ABNORMAL) Hepatic Function Panel (08/03/2024 4:04 AM CDT) Bilirubin, Total, S 1.9(H) 0.0 - 1.2 mg/dL 08/03/2024 4:59 AM CDT DTL Bilirubin, Direct, S 0.7(H) 0.0 - 0.3 mg/dL 08/03/2024 4:59 AM CDT DTL Aspartate Aminotransferase (AST), S 86(H) 8 - 48 U/L 08/03/2024 4:59 AM CDT DTL Alanine Aminotransferase (ALT), S 29 7 - 55 U/L 08/03/2024 4:59 AM CDT DTL Alkaline Phosphatase, S 150(H) 40 - 129 U/L 08/03/2024 4:59 AM CDT DTL Albumin, S 2.5(L) 3.5 - 5.0 g/dL 08/03/2024 4:59 AM CDT DTL Protein, Total, S 5.9(L) 6.3 - 7.9 g/dL 08/03/2024 4:59 AM CDT DTL Blood (Blood, Venous) 08/03/2024 4:04 AM CDT 08/03/2024 4:41 AM CDT Jose Robertson APRN, C.N.P., D.N.P. LAB BLOOD ADD-ON Final Result [facility] [address] [place] [address], [facility] [address] [place] [address] * (ABNORMAL) Basic Metabolic Panel (08/03/2024 4:04 AM CDT) Potassium, S 3.6 3.6 - 5.2 mmol/L 08/03/2024 4:59 AM CDT DTL Sodium, S 133(L) 135 - 145 mmol/L 08/03/2024 4:59 AM CDT DTL Chloride, S 107 98 - 107 mmol/L 08/03/2024 4:59 AM CDT DTL Bicarbonate, S 17(L) 22 - 29 mmol/L 08/03/2024 4:59 AM CDT DTL Anion Gap 9 7 - 15 08/03/2024 4:59 AM CDT DTL BUN (Blood Urea Nitrogen), S 19 8 - 24 mg/dL 08/03/2024 4:59 AM CDT DTL Creatinine 1.08 0.74 - 1.35 mg/dL 08/03/2024 4:59 AM CDT DTL Estimated GFR (eGFR) 72 >=60 mL/min/BSA 08/03/2024 4:59 AM CDT DTL Comment: Estimated GFR calculated using the 2020 CKD_EPI creatinine equation. Calcium, Total, S 8.2(L) 8.8 - 10.2 mg/dL 08/03/2024 4:59 AM CDT DTL Glucose, S 136 70 - 140 mg/dL 08/03/2024 4:59 AM CDT DTL Blood (Blood, Venous) 08/03/2024 4:04 AM CDT 08/03/2024 4:41 AM CDT Jose Robertson APRN, C.N.P., D.N.P. LAB BLOOD ADD-ON Final Result [place] [address] [place] [address], [facility] [place] [address] [place] [address] * (ABNORMAL) CBC with Differential, Blood (08/03/2024 4:04 AM CDT) Hemoglobin 10.9(L) 13.2 - 16.6 g/dL 08/03/2024 4:39 AM CDT DTL Hematocrit 31.3(L) 38.3 - 48.6 % 08/03/2024 4:39 AM CDT DTL Erythrocytes 3.20(L) 4.35 - 5.65 x10(12)/L 08/03/2024 4:39 AM CDT DTL MCV 97.8 78.2 - 97.9 fL 08/03/2024 4:39 AM CDT DTL RBC Distrib Width 14.9(H) 11.8 - 14.5 % 08/03/2024 4:39 AM CDT DTL Platelet Count 45(L) 135 - 317 x10(9)/L 08/03/2024 4:39 AM CDT DTL Leukocytes 5.7 3.4 - 9.6 x10(9)/L 08/03/2024 4:39 AM CDT DTL Neutrophils 4.75 1.56 - 6.45 x10(9)/L 08/03/2024 4:39 AM CDT DHPM Lymphocytes 0.40(L) 0.95 - 3.07 x10(9)/L 08/03/2024 4:39 AM CDT DTL Monocytes 0.48 0.26 - 0.81 x10(9)/L 08/03/2024 4:39 AM CDT DTL Eosinophils 0.09 0.03 - 0.48 x10(9)/L 08/03/2024 4:39 AM CDT DTL Basophils <0.03 0.01 - 0.08 x10(9)/L 08/03/2024 4:39 AM CDT DTL Blood (Blood, Venous) 08/03/2024 4:04 AM CDT 08/03/2024 4:32 AM CDT us Jose Robertson APRN, C.N.P., D.N.P. LAB BLOOD ADD-ON Final Result Performing Organization Address City/[facility] Co de Phone Number [facility] [address] [place] [address], [facility] DTL [facility] [address] [place] [address] [facility] [address] [place] [address] * (ABNORMAL) Troponin T, 6h, 5th Gen (08/03/2024 12:09 AM CDT) Troponin T, 6 hr, 5th gen 55(H) <=15 ng/L 08/03/2024 12:46 AM CDT [facility] 6H Delta 7 ng/L 08/03/2024 12:46 AM CDT ST[facility] 6H Delta Interp Not Changing 08/03/2024 12:46 AM CDT [facility] Blood 08/03/2024 12:0 9 AM CDT 08/03/2024 12:16 AM CDT us Adair Galindo APRN, C.N.P. LAB BLOOD TROPONI N Final Result Performing Organization Address City/[facility]/ZIP Co de Phone Number [facility] [address] 200 [place] [id number] * (ABNORMAL) Lactate (08/02/2024 8:18 PM CDT) Lactate, P 2.7(H) 0.5 - 2.2 mmol/L 08/02/2024 8:39 PM CDT STMA Blood 08/02/2024 8:18 PM CDT 08/02/2024 8:22 PM CDT us Anup Escalante M.D. LAB BLOOD NON ADD-ON Fi nal Result Performing Organization Address City/[facility]/ZIP Co de Phone Number [facility] [address] 200 [place] [address] * (ABNORMAL) Troponin T, 2 Hour with 6 Hour Reflex, 5th Gen (08/02/2024 8:18 PM CDT) Troponin T, 2 hr, 5th gen 58(H) <=15 ng/L 08/02/2024 9:08 PM CDT ST[facility] 2H Delta 10(A) ng/L 08/02/2024 9:08 PM CDT STMA Comment:6 hour collection pe nding. 2H Delta Interp Changing(A ) 08/02/2024 9:08 PM CDT STMA Comment:Evaluate for acute m yocardial injury Blood 08/02/2024 8:18 PM CDT 08/02/2024 8:22 PM CDT us Adair Galindo APRN, C.N.P. LAB BLOOD TROPONI N Final Result Performing Organization Address [facility] Co de Phone Number [facility] [address] [place] [address], [facility] [address] [place] [address] * CT Abdomen Pelvis with IV Contrast (08/02/2024 7:57 PM CDT) Anatomical Region Laterality Modality Abdomen, Pelvis, Abdominal R ST LOS, Abdominal ARZ LOS, Abdominal FLA LOS N/A Computed Tomograp hy, Computed Tomography 08/02/2024 7:54 PM CDT Impressions 08/02/2024 8:22 PM CDT 1. Cirrhosis with sequelae of portal venous hypertension. 2. No acute finding in the abdomen or pelvis or significant change since 11/04/2023. Narrative 08/02/2024 8:22 PM CDT EXAM: CT ABDOMEN PELVIS WITH IV CONTRAST COMPARISON: CT abdomen pelvis with IV contrast 11/04/2023 FINDINGS: Cirrhosis with sequelae of portal venous hypertension including splenomegaly, upper abdominal and esophageal varices, ascites, and portal colopathy. Spleen measures up to 16 cm. Mild ascites, decreased since 11/04/2023, with extension into small bilateral inguinal hernias. Mild subcutaneous edema. Gynecomastia. Bilateral hip arthroplasties. Degenerative change of the spine. Slight fibrosis in the lower lungs. Remainder negative. Procedure Note Aman García M.D. - 08/02/2024 EXAM: CT ABDOMEN PELVIS WITH IV CONTRAST COMPARISON: CT abdomen pelvis with IV contrast 11/04/2023 FINDINGS: Cirrhosis with sequelae of portal venous hypertension includingsplenomegaly, upper abdominal and esophageal varices, ascites, and portalcolopathy. Spleen measures up to 16 cm. Mild ascites, decreased since 11/04/2023, with extension into smallbilateral inguinal hernias. Mild subcutaneous edema. Gynecomastia.Bilateral hip arthroplasties. Degenerative change of the spine. Slightfibrosis in the lower lungs. Remainder negative. IMPRESSION: 1. Cirrhosis with sequelae of portal venous hypertension. 2. No acute finding in the abdomen or pelvis or significant change since11/04/2023. Anup Escalante M.D. [facility] CT PROCEDURES Final Result * (ABNORMAL) Dipstick, POCT, Urine (08/02/2024 6:19 PM CDT) Glucose, POCT, U 500(A) Negative mg/dL 08/02/2024 6:21 PM CDT PCED Ketone, POCT, U Trace(A) Negative mg/dL 08/02/2024 6:21 PM CDT PCED Specific [place], POCT, U 1.010 1.005 - 1.030 08/02/2024 6:21 PM CDT PCED Blood, POCT, U Moderate(A) Negative 08/02/2024 6:21 PM CDT PCED pH, POCT, Urine 6.0 5.0 - 8.0 08/02/2024 6:21 PM CDT PCED Protein, POCT, U 30(A) Negative mg/dL 08/02/2024 6:21 PM CDT PCED Nitrites, POCT, U Negative Negative 08/02/2024 6:21 PM CDT PCED Leukocytes, POCT, U Negative Negative 08/02/2024 6:21 PM CDT PCED Urine 08/02/2024 6:19 PM CDT 08/02/2024 6:21 PM CDT us Unknown Provider LAB POCT ORDERABLES - DEVICE Fi nal Result POC [facility] [address] [facility] POC [address] [place] [address] * (ABNORMAL) Dipstick, Urine (08/02/2024 6:11 PM CDT) Hemoglobin, QL, U Moderate(A) Negative 08/02/2024 7:48 PM CDT DTL Leukocyte Esterase, U Negative Negative 08/02/2024 7:48 PM CDT DTL Nitrite, U Negative Negative 08/02/2024 7:48 PM CDT DTL Ketone, U 5(A) Negative mg/dL 08/02/2024 7:48 PM CDT DTL Glucose, U >=1000(A) Negative mg/dL 08/02/2024 7:48 PM CDT DTL Urine 08/02/2024 6:11 PM CDT 08/02/2024 7:25 PM CDT us Adair Galindo APRN, C.N.P. LAB URINE ORDERAB LES Final Result Performing Organization Address City/[facility]/ZIP Co de Phone Number [facility] [address] 200 [place] [address] * Osmolality, Urine (08/02/2024 6:11 PM CDT) Osmolality, U 602 150 - 1150 mOsm/kg 08/02/2024 8:13 PM CDT DTL Urine 08/02/2024 6:11 PM CDT 08/02/2024 7:25 PM CDT Adair Gailndo APRN, C.N.P. LAB URINE ORDERAB LES Final Result Performing Organization Address [facility] Co de Phone Number [facility] [address] 200 [place] [address] * pH, Urine (08/02/2024 6:11 PM CDT) [facility] pH, U 6.0 4.5 - 8.0 08/02/2024 8:1 3 PM CDT DT Urine 08/02/2024 6:11 PM CDT 08/02/2024 7:25 PM CDT Adair Galindo APRN, C.N.P. LAB URINE ORDERAB LES Final Result Performing Organization Address City/[facility]/ZIP Co de Phone Number [facility] [address] [place] [address] * (ABNORMAL) Microscopic Automated (08/02/2024 6:11 PM CDT) Microscopy Abnormal 08/02/2024 7:48 PM CDT DTL RBC <3 <3 /hpf 08/02/2024 7:48 PM CDT DTL WBC 4-10(A) /hpf 08/02/2024 7:48 PM CDT DTL Comment: ----REFERENCE VALUE---- <4 (Males) <11 (Females) Urine 08/02/2024 6:11 PM CDT 08/02/2024 7:25 PM CDT Napoleon Erwin APRNNShila LAB URINE ORDERAB LES Final Result Performing Organization Address [facility] Co de Phone Number [facility] [address] [place] [address] * Bacterial Culture, Aerobic + Susceptibility, Urine (08/02/2024 6:11 PM CDT) Urine Culture Urogenital microbiota, susceptibilities not performed per laboratory criteria. 08/04/2024 7:24 AM CDT DTL Urine (Urine, Midstream) 08/02/2024 6:11 PM CDT 08/02/2024 7:57 PM CDT Comment:Specimen Source Site : Urine Malik Oswald M.D. LAB MICROBIOLOGY - GENER AL ORDERABLES Final Result Performing Organization Address [facility] [place] [address] * (ABNORMAL) Urinalysis, with Microscopic: Urine, Midstream (08/02/2024 6:11 PM CDT) Source Urine, Urine, Midstream 08/02/2024 7:25 PM CDT DTL Color, U Yellow 08/02/2024 7:25 PM CDT DTL Clarity, U Clear 08/02/2024 7:25 PM CDT DTL Protein, U 26(H) <26 mg/dL 08/02/2024 8:16 PM CDT DTL Protein/Osmol ality 0.43(H) <0.42 ratio 08/02/2024 8:16 PM CDT DTL Predicted 24 HR Protein, U 423(H) <229 mg/24 h 08/02/2024 8:16 PM CDT DTL Predicted Range 134-1333 mg/24 h 08/02/2024 8:16 PM CDT DTL Urine (Urine, Midstream) 08/02/2024 6:11 PM CDT 08/02/2024 7:25 PM CDT us Malik Oswald M.D. LAB URINE ORDERABLES Fin al Result Performing Organization Address City/[facility]/ZIP Co de Phone Number [facility] [address] [place] [address], [facility] DTL [facility] [address] [place] [address] * Influenza A/B, SARS CoV-2, PCR, Rapid Symptomatic (08/02/2024 6:03 PM CDT) Influenza A, PCR, Rapid, V Negative Negative 08/02/2024 6:41 PM CDT STMA Influenza B, PCR, Rapid, V Negative Negative 08/02/2024 6:41 PM CDT [facility] SARS CoV-2, PCR, Rapid, V Undetected Undetected 08/02/2024 6:41 PM CDT [facility] Infl A/B, SARS CoV-2, PCR, Source Swab, Nasopharynx 08/02/2024 6:17 PM CDT [facility] Swab (Nasopharynx) 08/02/2024 6:03 PM CDT 08/02/2024 6:17 PM CDT Anup Escalante M.D. LAB MICROBIOLOGY - GENE RAL ORDERABLES Final Result Performing Organization Address [facility]/ZIP Co de Phone Number [facility] [address] [place] [address], [facility] STMA [facility] [address] [place] [address] * Bacteria / Neda Culture, Blood #2 (08/02/2024 6:00 PM CDT) Pathologist [facility] Bacteria/Taylor da Culture, Blood No growth after 5 days of incubation. 08/07/2024 8:02 PM CDT DT Blood (Blood, Peripheral Draw) 08/02/2024 6:00 PM CDT 08/02/2024 7:27 PM CDT Comment:Specimen Source Site : Blood Anup Escalante M.D. LAB MICROBIOLOGY - GENE RAL ORDERABLES Final Result [facility] [address] [place] [address] * (ABNORMAL) Sedimentation Rate (08/02/2024 6:00 PM CDT) [facility] Sedimentation Rate, B 40(H) 3 - 28 mm/h 08/02/2024 8:46 PM CDT DTL Blood (Blood, Venous) 08/02/2024 6:00 PM CDT 08/02/2024 6:15 PM CDT Anup Escalante M.D. LAB BLOOD ADD-ON Final Result [facility] [address] [place] [address], [facility] 200 [place] [address] * (ABNORMAL) Lactate for Sepsis with Reflex (08/02/2024 5:49 PM CDT) Pathologist [facility] Lactate, P 3.3(H) 0.5 - 2.2 mmol/L 08/02/2024 6:09 PM CDT ST[facility] Blood (Blood, Venous) 08/02/2024 5:49 PM CDT 08/02/2024 5:54 PM CDT Anup Escalante M.D. LAB BLOOD NON ADD-ON Fi nal Result Performing Organization Address City/[facility]/ZIP Co de Phone Number [facility] [address] [place] [address] * Bacteria / Neda Culture, Blood #1 (08/02/2024 5:49 PM CDT) Bacteria/Taylor da Culture, Blood No growth after 5 days of incubation. 08/07/2024 6:02 PM CDT DTL Blood (Blood, Peripheral Draw) 08/02/2024 5:49 PM CDT 08/02/2024 6:01 PM CDT Comment:Specimen Source Site : Blood Anup Escalante M.D. LAB MICROBIOLOGY - GENE RAL ORDERABLES Final Result Performing Organization Address [facility] Co de Phone Number [facility] [address] [facility] [address] [place] [address] * (ABNORMAL) Phosphorus Inorganic (08/02/2024 5:49 PM CDT) Pathologist [facility] Phosphorus (Inorganic), P 1.7(L) 2.5 - 4.5 mg/dL 08/02/2024 6:09 PM CDT [facility] Blood (Blood, Venous) 08/02/2024 5:49 PM CDT 08/02/2024 5:54 PM CDT Anup Escalante M.D. LAB BLOOD ADD-ON Final Result Performing Organization Address City/[facility]/ZIP Co de Phone Number [facility] [address] [place] [address] * Magnesium (08/02/2024 5:49 PM CDT) Magnesium, P 1.7 1.7 - 2.3 mg/dL 08/02/2024 6:09 PM CDT STMA Blood (Blood, Venous) 08/02/2024 5:49 PM CDT 08/02/2024 5:54 PM CDT Anup Escalante M.D. LAB BLOOD ADD-ON Final Result Performing Organization Address [facility] Co de Phone Number [facility] [address] [place] [address] * (ABNORMAL) CRP (C-Reactive Protein) (08/02/2024 5:49 PM CDT) C-Reactive Protein (CRP), S 15.8(H) <5.0 mg/L 08/02/2024 6:51 PM CDT DTL Blood (Blood, Venous) 08/02/2024 5:49 PM CDT 08/02/2024 6:32 PM CDT Anup Escalante M.D. LAB BLOOD ADD-ON Final Result Performing Organization Address [facility] Co de Phone Number [facility] [address] [place] [address] * (ABNORMAL) Hepatic Function Panel (08/02/2024 5:49 PM CDT) Bilirubin, Total, S 1.7(H) 0.0 - 1.2 mg/dL 08/02/2024 6:51 PM CDT DTL Bilirubin, Direct, S 0.7(H) 0.0 - 0.3 mg/dL 08/02/2024 6:51 PM CDT DTL Aspartate Aminotransferase (AST), S 39 8 - 48 U/L 08/02/2024 6:51 PM CDT DTL Alanine Aminotransferase (ALT), S 29 7 - 55 U/L 08/02/2024 6:51 PM CDT DTL Alkaline Phosphatase, S 182(H) 40 - 129 U/L 08/02/2024 6:51 PM CDT DTL Albumin, S 3.0(L) 3.5 - 5.0 g/dL 08/02/2024 6:51 PM CDT DTL Protein, Total, S 7.1 6.3 - 7.9 g/dL 08/02/2024 6:51 PM CDT DTL Blood (Blood, Venous) 08/02/2024 5:49 PM CDT 08/02/2024 6:32 PM CDT us Anup Escalante M.D. LAB BLOOD ADD-ON Final Result Performing Organization Address City/[facility]/ZIP Co de Phone Number [facility] [address] [place], [place] [id number] [place] [address] DTL [facility] 200 [place] [address] * (ABNORMAL) Troponin T, Baseline with 2 Hour/6 Hour Reflex Biomarker Panel (08/02/2024 5:49 PM CDT) [facility] Troponin T, Baseline, 5th gen 48(H) <=15 ng/L 08/02/2024 6:19 PM CDT ST[facility] Blood (Blood, Venous) 08/02/2024 5:49 PM CDT 08/02/2024 5:54 PM CDT us Malik Oswald M.D. LAB BLOOD TROPONIN Final Result Performing Organization Address City/[facility]/ZIP Co de Phone Number [facility] [address] [place], [place] [phone] [place] [address] STMA [facility] [address] [place] [address] * (ABNORMAL) CBC with Differential, Blood (08/02/2024 5:49 PM CDT) [facility] Hemoglobin 11.9(L) 13.2 - 16.6 g/dL 08/02/2024 5:57 PM CDT [facility] Hematocrit 33.9(L) 38.3 - 48.6 % 08/02/2024 5:57 PM CDT [facility] Erythrocytes 3.51(L) 4.35 - 5.65 x10(12)/L 08/02/2024 5:57 PM CDT ST[facility] MCV 96.6 78.2 - 97.9 fL 08/02/2024 5:57 PM CDT ST[facility] RBC Distrib Width 14.6(H) 11.8 - 14.5 % 08/02/2024 5:57 PM CDT [facility] Platelet Count 47(L) 135 - 317 x10(9)/L 08/02/2024 5:57 PM CDT [facility] Leukocytes 9.9(H) 3.4 - 9.6 x10(9)/L 08/02/2024 5:57 PM CDT [facility] Neutrophils 9.00(H) 1.56 - 6.45 x10(9)/L 08/02/2024 5:57 PM CDT [facility] Lymphocytes 0.23(L) 0.95 - 3.07 x10(9)/L 08/02/2024 5:57 PM CDT [facility] Monocytes 0.69 0.26 - 0.81 x10(9)/L 08/02/2024 5:57 PM CDT [facility] Eosinophils <0.03 0.03 - 0.48 x10(9)/L 08/02/2024 5:57 PM CDT [facility] Basophils <0.03 0.01 - 0.08 x10(9)/L 08/02/2024 5:57 PM CDT ST[facility] Blood (Blood, Venous) 08/02/2024 5:49 PM CDT 08/02/2024 5:54 PM CDT Malik Oswald M.D. LAB BLOOD ADD-ON Final R esult [facility] [address] [place] [address], [facility] STMA [facility] [address] [place] [address] [facility] [address] [place] [address] * (ABNORMAL) Glucose, POCT (08/02/2024 5:49 PM CDT) [facility] Glucose, POCT, B 163(H) 70 - 140 mg/dL 08/02/2024 9:25 PM CDT PCLX Site Venstick 08/02/2024 9:25 PM CDT PCLX Blood (Blood, Capillary) 08/02/2024 5:49 PM CDT 08/02/2024 5:49 PM CDT Malik Oswald M.D. LAB POCT ORDERABLES-PONCHO HYDE Final Result POC [facility] [address] [place] [address], [facility] PCLX [facility] POC [address] [place] [address] * (ABNORMAL) Basic Metabolic Panel (08/02/2024 5:49 PM CDT) Pathologist [facility] Potassium, P 3.7 3.6 - 5.2 mmol/L 08/02/2024 6:12 PM CDT ST[facility] Sodium, P 131(L) 135 - 145 mmol/L 08/02/2024 6:12 PM CDT [facility] Chloride, P 100 98 - 107 mmol/L 08/02/2024 6:12 PM CDT [facility] Bicarbonate, P 16(L) 22 - 29 mmol/L 08/02/2024 6:12 PM CDT ST[facility] Anion Gap, P 15 7 - 15 08/02/2024 6:12 PM CDT [facility] BUN (Blood Urea Nitrogen), P 23 8 - 24 mg/dL 08/02/2024 6:12 PM CDT [facility] Creatinine 1.18 0.74 - 1.35 mg/dL 08/02/2024 6:12 PM CDT [facility] Estimated GFR (eGFR) 64 >=60 mL/min/BSA 08/02/2024 6:12 PM CDT ST[facility] Comment: Estimated GFR calculated using the 2020 CKD_EPI creatinine equation. Calcium, Total, P 9.2 8.8 - 10.2 mg/dL 08/02/2024 6:12 PM CDT ST[facility] Glucose, P 170(H) 70 - 140 mg/dL 08/02/2024 6:12 PM CDT [facility] Blood (Blood, Venous) 08/02/2024 5:49 PM CDT 08/02/2024 5:54 PM CDT us Malik Oswald M.D. LAB BLOOD ADD-ON Final R esult Performing Organization Address [facility] Co de Phone Number [facility] [address] [place] [address], [facility] [address] [place] [address] * ECG 12 Lead (08/02/2024 5:33 PM CDT) Ventricular Rate ECG/Min 86 BPM MUSE [place] Interval 140 ms MUSE QRSD Interval 134 ms MUSE QT Interval 402 ms MUSE QTC Interval 481 ms MUSE P [place] -11 degrees MUSE R [place] -41 degrees MUSE T Wave [place] 6 degrees MUSE 08/02/2024 5:33 PM CDT 08/02/2024 5:42 PM CDT Impressions MUSE - 08/02/2024 5:42 PM CDT Sinus rhythm with paired Premature atrial complexes Left axis deviation Right bundle branch block with secondary ST-T abnormalities When compared with ECG of 02-Aug-2024 16:50, No significant change was found Reviewed by KLEBER Delaney Narrative Procedure Note Conor Cody M.D. - 08/02/2024 IMPRESSION: Sinus rhythm with paired Premature atrial complexes Left axis deviation Right bundle branch block with secondary ST-T abnormalities When compared with ECG of 02-Aug-2024 16:50, No significant change was found Reviewed by KLEBER Delaney us Malik Oswald M.D. ECG ORDERABLES Final Re sult Performing Organization Address City/[facility]/ZIP Co de Phone Number MUSE NA * DX Chest AP or PA and Lateral 2 Views (08/02/2024 5:28 PM CDT) Anatomical Region Laterality Modality Chest, Thoracic RST LOS, Tho racic ARZ LOS, Thoracic FLA LOS N/A Digital Radiography Impressions 08/02/2024 5:37 PM CDT Compared to 08/25/2023, resolution of patchy opacities within the lung bases. No new focal consolidation or pleural effusion. Reticular and linear opacities within both lung bases likely represent mild fibrotic changes. Remainder not significantly changed. Normal heart size. Postoperative changes right shoulder. Mild anterior wedging of a lower thoracic vertebral body. Narrative 08/02/2024 5:37 PM CDT EXAM: DX CHEST AP OR PA AND LATERAL 2 VIEWS Procedure Note Mehran Abernathy M.D. - 08/02/2024 EXAM: DX CHEST AP OR PA AND LATERAL 2 VIEWS IMPRESSION: Compared to 08/25/2023, resolution of patchy opacities within the lungbases. No new focal consolidation or pleural effusion. Reticular andlinear opacities within both lung bases likely represent mild fibroticchanges. Remainder not significantly changed. Normal heart size. Postoperative changes rightshoulder. Mild anterior wedging of a lower thoracic vertebral body. Malik Oswald M.D. IMG DIAGNOSTIC IMAGING P ROCEDURES Final Result * ECG 12 Lead (08/02/2024 4:50 PM CDT) Ventricular Rate ECG/Min 89 BPM MUSE [place] Interval 130 ms MUSE QRSD Interval 144 ms MUSE QT Interval 406 ms MUSE QTC Interval 493 ms MUSE P [place] -19 degrees MUSE R [place] -34 degrees MUSE T Wave [place] 3 degrees MUSE 08/02/2024 4:50 PM CDT 08/02/2024 4:53 PM CDT Impressions MUSE - 08/02/2024 4:53 PM CDT Sinus rhythm Premature atrial complexes Left axis deviation Right bundle branch block with secondary ST-T abnormalities When compared with ECG of 04-Nov-2023 12:51, Premature atrial complexes are now present Vent. rate has increased by 41 bpm Right bundle branch block is now present Reviewed by KLEBER Delaney Narrative Procedure Note Conor Cody M.D. - 08/02/2024 IMPRESSION: Sinus rhythm Premature atrial complexes Left axis deviation Right bundle branch block with secondary ST-T abnormalities When compared with ECG of 04-Nov-2023 12:51, Premature atrial complexes are now present Vent. rate has increased by 41 bpm Right bundle branch block is now present Reviewed by KLEBER Delaney Malik Oswald M.D. ECG ORDERABLES Final Re sult MUSE NA documented in this encounter Visit Diagnoses Diagnosis Sepsis (HCC)- Primary Illness Febrile Acidosis Lactic Sepsis (HCC) Decline Functional Status [R53.81] Elevated Troponin Abdominal Pain Colitis Hernia Inguinal Left Pneumonitis Due To Inhalation Of Food And Vomit (HCC) Thrombocytopenia Hyperlipidemia Ascites Primary Osteoarthritis Hip Left Thrombosis Deep Vein Personal History Stricture Esophagus Unspecified Cirrhosis Of Liver (HCC) Secondary Esophageal Varices Without Bleeding (HCC) Hypertension Portal (HCC) Hypertension Essential Primary Hepatitis Autoimmune (HCC) Diabetes Mellitus Type 2 (HCC) Illness Febrile Diabetes Mellitus Type 2 (HCC) Hepatitis Autoimmune (HCC) Hypertension Essential Primary Hypertension Portal (HCC) Secondary Esophageal Varices Without Bleeding (HCC) Unspecified Cirrhosis Of Liver (HCC) Gastroesophageal Reflux Disease NOS Thrombosis Deep Vein Personal History Hyperlipidemia Thrombocytopenia Elevated Troponin Acidosis Lactic documented in this encounter Admitting Diagnoses Diagnosis Illness Febrile Sepsis (HCC) documented in this encounter Administered Medications Inactive Administered Medications - up to 3 most recent administrations Medication Order MAR Action Action Date Dose Rate Site ciprofloxacin tablet 500 mg (Cipro) 500 mg, oral, 2 times daily before morning and evening meals, First dose on [place] 08/04/24 at 1600, Take 2 hours before or 6 hours after antacids containing magnesium or aluminum, sucralfate, didanosine, polymeric phosphate binders, or products containing calcium, iron, or zinc., Drug Monitoring Program: Pharmacist to adjust medication dosing based on indication and drug clearance factors., Indications: Intra-abdominal infection, community acquiredIndications:Intra-abdomina l infection, community acquired Given 08/05/2024 3:16 PM CDT 500 mg Given 08/05/2024 6:33 AM CDT 500 mg Given 08/04/2024 5:15 PM CDT 500 mg furosemide tablet 40 mg (Lasix) 40 mg, oral, Daily, First dose on [place] 08/04/24 at 1430 Given 08/05/2024 9:44 AM CDT 40 mg Given 08/04/2024 2:38 PM CDT 40 mg insulin aspart U-100 injection 0-13 Units (NovoLOG FlexPen) 0-13 Units, subcutaneous, 3 times daily, First dose on Thu08/03/24 at 0800, Insulin Scale: Moderate Correction Scale, 140 - 179: 2 units, 180 - 219: 4 units, 220 - 259: 6 units, 260 - 299: 8 units, 300 - 339: 10 units, 340 - 379: 12 units, 380 - 399: 13 units, Greater than 399: Call service writing Insulin orders Given 08/05/2024 12:50 PM CDT 4 Units Left Upper Arm (Back ) Given 08/05/2024 7:45 AM CDT 2 Units Le ft Upper Arm (Back) Given 08/04/2024 5:15 PM CDT 8 Units Le ft Upper Arm (Back) iohexoL 300 mg iodine/mL solution 1-200 mL (Omnipaque) 1-200 mL, intravenous, Once in imaging, contrast, Starting on Thu08/02/24 at 1947, For 1 dose, Imaging Protocol Orders, Dose per Radiant Medication Guidelines Given 08/02/2024 7:51 PM CDT 100 mL lidocaine 10 mg/mL (1 %) injection (Xylocaine) As needed, Starting on Thu08/03/24 at 0937, Intra-Op Given 08/03/2024 9:37 AM CDT 8 mL Right Lower Abdomen magnesium sulfate 3 g in NaCl 0.9% IVPB 3 g, intravenous, at 35.3 mL/hr, Administer over 180 Minutes, Once, On Thu08/03/24 at 1445, For 1 dose New Bag 08/03/2024 3:57 PM CDT 3 g 35.3 mL/hr lsfmfuipnqka-mmwn-YX-Ca -minerals 400 mcg (folic acid) tablet 1 tablet 1 tablet, oral, Daily, First dose on Thu08/04/24 at 1445 Given 08/05/2024 9:44 AM CDT 1 tablet Given 08/04/2024 2:38 PM CDT 1 tablet NaCl 0.9 % bolus 1,000 mL 1,000 mL, intravenous, at 1,000 mL/hr, Administer over 1 Hours, Once as needed, low blood pressure, systolic blood pressure less than 90 mmHg, Starting on Thu08/02/24 at 1644, For 1 dose New Bag 08/02/2024 5:28 PM CDT 1,000 mL 1000 mL/hr NaCl 0.9 % bolus 1,000 mL 1,000 mL, intravenous, at 1,000 mL/hr, Administer over 1 Hours, Once, On Thu08/02/24 at 1845, For 1 dose New Bag 08/02/2024 7:07 PM CDT 1,000 mL 1000 mL/hr NaCl 0.9 % bolus 1,000 mL 1,000 mL, intravenous, at 1,000 mL/hr, Administer over 1 Hours, Once, On Thu08/02/24 at 2134, For 1 dose New Bag 08/02/2024 9:42 PM CDT 1,000 mL 1000 mL/hr pantoprazole DR tablet 40 mg (Protonix) 40 mg, oral, Daily before morning meal, First dose on Thu08/03/24 at 0700, pantoprazole 40 mg oral daily was interchanged for omeprazole 20 or 40 mg oral daily Swallow whole. Do NOT crush, chew, or split tablet. Given 08/05/2024 6:33 AM CDT 40 mg Given 08/04/2024 6:18 AM CDT 40 mg Given 08/03/2024 6:24 AM CDT 40 mg piperacillin-tazobactam in dextrose (iso osm) IVPB 3.375 g (Zosyn) 3.375 g, intravenous, at 100 mL/hr, Administer over 0.5 Hours, Once, On Thu08/02/24 at 1929, For 1 dose, Drug Monitoring Program: Pharmacist to adjust medication dosing based on indication and drug clearance factors., Indications: Sepsis syndrome, unknown source, community acquiredIndications:Sepsis syndrome, unknown source, community acquired New Bag 08/02/2024 7:40 PM CDT 3.375 g 100 mL/hr piperacillin-tazobactam in dextrose (iso osm) IVPB 3.375 g (Zosyn) 3.375 g, intravenous, at 100 mL/hr, Administer over 0.5 Hours, Every 6 hours, First dose (after last reorder) on Thu08/03/24 at 0100, Drug Monitoring Program: Pharmacist to adjust medication dosing based on indication and drug clearance factors., Indications: Sepsis syndrome, unknown source, community acquiredIndications:Sepsis syndrome, unknown source, community acquired New Bag 08/04/2024 6:18 AM CDT 3.375 g 100 mL/hr New Bag 08/04/2024 1:01 AM CDT 3.375 g 100 mL/hr New Bag 08/03/2024 7:30 PM CDT 3.375 g 100 mL/hr potassium chloride ER tablet 40 mEq 40 mEq, oral, Once, On Thu08/03/24 at 1445, For 1 dose, Swallow whole. Do NOT crush, chew, or split tablet. Given 08/03/2024 3:31 PM CDT 40 mEq hmzbbhcuj-ebpyvq-bcwolcbjh 280-160-250 mg per packet 1 packet (Phos-NaK) 1 packet, oral, Every 4 hours while awake, First dose on Thu08/02/24 at 1848, For 4 doses, Mix each packet in 75 mL water or juice then administer ordered dose. 250 mg of phosphate is equivalent to 8 mmol of phosphate., Monitor the following for replacement: Phosphorus Given 08/03/2024 10:43 AM CDT 1 packet Given 08/03/2024 6:24 AM CDT 1 packet Given 08/02/2024 9:27 PM CDT 1 packet sodium chloride (PF) 0.9 % injection 1-100 mL 1-100 mL, intravenous, Once, On Thu08/02/24 at 1948, For 1 dose, Imaging Protocol Orders, Dose per Radiant Medication Guidelines Given 08/02/2024 7:51 PM CDT 50 mL sodium chloride 0.9 % injection 10 mL 10 mL, intravenous, As needed, line care, Starting on Thu08/02/24 at 1644, Peripheral Intravenous Catheter and Rapid Infusion Catheter, prior to blood sampling, post blood transfusion or post blood sampling sodium chloride 0.9 % injection 3 mL 3 mL, intravenous, As needed, line care, Starting on Thu08/02/24 at 1644, Prior to and following infusion and between multiple consecutive infusions: sodium chloride 0.9 % injection sodium chloride 0.9 % injection 3 mL 3 mL, intravenous, Every 12 hours scheduled, First dose on Thu08/02/24 at 2100, Peripheral Intravenous Catheter and Rapid Infusion Catheter, when no infusion to maintain patency Given 08/05/2024 9: 45 AM CDT 3 mL Given 08/04/2024 8:58 PM CDT 3 mL Given 08/04/2024 8:04 AM CDT 3 mL spironolactone tablet 50 mg (Aldactone) 50 mg, oral, Daily, First dose on Thu08/04/24 at 1430 Given 08/05/2024 9:44 AM CDT 50 mg Given 08/04/2024 2:38 PM CDT 50 mg vancomycin in NaCl 0.9 % IVPB 1,000 mg 1,000 mg (rounded from 942 mg = 15 mg/kg 62.8 kg Adjusted weight), intravenous, at 200 mL/hr, Administer over 60 Minutes, Once, On Thu08/02/24 at 1929, For 1 dose, Drug Monitoring Program: Pharmacist to adjust medication dosing based on indication and drug clearance factors., Indications: Sepsis syndrome, unknown source, community acquiredIndications:Sepsis syndrome, unknown source, community acquired New Bag 08/02/2024 8:39 PM CDT 1,000 mg 200 mL/hr vancomycin in NaCl 0.9 % IVPB 1,000 mg 1,000 mg (rounded from 942 mg = 15 mg/kg 62.8 kg Adjusted weight), intravenous, at 200 mL/hr, Administer over 60 Minutes, Every 24 hours, First dose (after last reorder) on Thu08/03/24 at 2000, Drug Monitoring Program: Pharmacist to adjust medication dosing based on indication and drug clearance factors., Indications: Sepsis syndrome, unknown source, community acquiredIndications:Sepsis syndrome, unknown source, community acquired New Bag 08/03/2024 8:22 PM CDT 1,000 mg 200 mL/hr documented in this encounter Active and Recently Administered Medications Times are shown in CDT. Scheduled Medication Order 08/03/2024 08/04/2024 08/05/2024 ciprofloxacin tablet 500 mg (Cipro) 500 mg, oral, 2 times daily before morning and evening meals, First dose on Thu08/04/24 at 1600, Take 2 hours before or 6 hours after antacids containing magnesium or aluminum, sucralfate, didanosine, polymeric phosphate binders, or products containing calcium, iron, or zinc., Drug Monitoring Program: Pharmacist to adjust medication dosing based on indication and drug clearance factors., Indications: Intra-abdominal infection, community acquired 171 (Given - Provider: Zenaida Rosado, R.N. - Comment: Pt ate lunch 1500 so rescheduled admin for 2 hours post-prandial) 0633 (Given - Provider: Dia Buck R.N.)1516 (Given - Provider: Lauren Altman RMarcusNMarcus) furosemide tablet 40 mg (Lasix) 40 mg, oral, Daily, First dose on Thu08/04/24 at 1430 1438 (Given - Provider: Zenaida Rosado, R.N.) 0944 (Given - Provider: Brynn AndujarN.) insulin aspart U-100 injection 0-13 Units (NovoLOG FlexPen) 0-13 Units, subcutaneous, 3 times daily, First dose on Thu08/03/24 at 0800, Insulin Scale: Moderate Correction Scale, 140 - 179: 2 units, 180 - 219: 4 units, 220 - 259: 6 units, 260 - 299: 8 units, 300 - 339: 10 units, 340 - 379: 12 units, 380 - 399: 13 units, Greater than 399: Call service writing Insulin orders 0845 (Not Given - Provider: Meliza Alves, RMarcusN. - Reason: Order parameters not met)1137 (Not Given - Provider: Zenaida Rosado, R.N. - Reason: Order parameters not met)1735 (Not Given - Provider: Zenaida Rosado, R.N. - Reason: Other - Comment: Pt ate meal before getting BG checked) 0805 (Given - Provider: Angely Britt, RMarcusN.)1123 (Given - Provider: Angely Britt, R.N.)1446 (Given - Provider: Zenaida Rosado, R.N. - Comment: lunch eaten later than scheduled insulin)1715 (Given - Provider: Zenaida Rosado, R.N.) 0745 (Given - Provider: Lauren Altman R.N.)1250 (Given - Provider: Brynn AndujarNMarcus) magnesium sulfate 3 g in NaCl 0.9% IVPB (COMPLETED) 3 g, intravenous, at 35.3 mL/hr, Administer over 180 Minutes, Once, On Thu08/03/24 at 1445, For 1 dose 1557 (New Bag - Provider: Zenaida Rosado, R.N.) kbylswoefhoz-cxfn-QJ-Ca -minerals 400 mcg (folic acid) tablet 1 tablet 1 tablet, oral, Daily, First dose on Thu08/04/24 at 1445 1438 (Given - Provider: Zenaida Rosado, R.N.) 0944 (Given - Provider: Lauren Altman RMarcusNMarcus) pantoprazole DR tablet 40 mg (Protonix) 40 mg, oral, Daily before morning meal, First dose on Thu08/03/24 at 0700, pantoprazole 40 mg oral daily was interchanged for omeprazole 20 or 40 mg oral daily Swallow whole. Do NOT crush, chew, or split tablet. 0624 (Given - Provider: Georgia Hernandez R.N.) 0618 (Given - Provider: Brynn GeorgesNMarcus) 0633 (Given - Provider: Dia Buck RMarcusNMarcus) piperacillin-tazobactam in dextrose (iso osm) IVPB 3.375 g (Zosyn) (CANCELED) 3.375 g, intravenous, at 100 mL/hr, Administer over 0.5 Hours, Every 6 hours, First dose (after last reorder) on Thu08/03/24 at 0100, Drug Monitoring Program: Pharmacist to adjust medication dosing based on indication and drug clearance factors., Indications: Sepsis syndrome, unknown source, community acquired 0021 (New Bag - Provider: Georgia Hernandez R.N.)0624 (New Bag - Provider: Georgia Hernandez R.N.)1317 (Stopped - Provider: Zenaida Rosado, R.N. - Comment: PIV not good)1356 (Restarted - Provider: Zenaida Rosado, R.N.)1930 (New Bag - Provider: Rossy Rosado., R.N.) 0101 (New Bag - Provider: Jeanie Arizmendi R.N.)0618 (New Bag - Provider: Jeanie Arizmendi R.N.) potassium chloride ER tablet 40 mEq (COMPLETED) 40 mEq, oral, Once, On Thu08/03/24 at 1445, For 1 dose, Swallow whole. Do NOT crush, chew, or split tablet. 1531 (Given - Provider: Zenaida Rosado, R.N.) quorerhja-dipgzd-yzixkn ate 280-160-250 mg per packet 1 packet (Phos-NaK) () 1 packet, oral, Every 4 hours while awake, First dose on Thu08/02/24 at 1848, For 4 doses, Mix each packet in 75 mL water or juice then administer ordered dose. 250 mg of phosphate is equivalent to 8 mmol of phosphate., Monitor the following for replacement: Phosphorus 0157 (Not Given - Provider: Georgia Hernandez R.N. - Reason: Order parameters not met)0624 (Given - Provider: Georgia Hernandez R.N.)1043 (Given - Provider: Meliza Alves R.N.) sodium chloride 0.9 % injection 3 mL 3 mL, intravenous, Every 12 hours scheduled, First dose on Thu08/02/24 at 2100, Peripheral Intravenous Catheter and Rapid Infusion Catheter, when no infusion to maintain patency 0845 (Given - Provider: Meliza Alves R.N.)2145 (Not Given - Provider: Zenaida Rosado, R.N. - Reason: Other - Comment: PIV infusing) 0804 (Given - Provider: Angely Britt RMarcusNMarcus)2058 (Given - Provider: Zenaida Rosdao, R.N.) 0945 (Given - Provider: Lauren Altman RMarcusNMarcus) spironolactone tablet 50 mg (Aldactone) 50 mg, oral, Daily, First dose on Thu08/04/24 at 1430 1438 (Given - Provider: Zenaida Rosado, R.N.) 0944 (Given - Provider: Brynn AndujarNMarcus) vancomycin in NaCl 0.9 % IVPB 1,000 mg (CANCELED) 1,000 mg (rounded from 942 mg = 15 mg/kg 62.8 kg Adjusted weight), intravenous, at 200 mL/hr, Administer over 60 Minutes, Every 24 hours, First dose (after last reorder) on Thu08/03/24 at 2000, Drug Monitoring Program: Pharmacist to adjust medication dosing based on indication and drug clearance factors., Indications: Sepsis syndrome, unknown source, community acquired 2021 (New Bag - Provider: Zenaida Rosado, R.N.) 1950 (Handoff - Provider: Solomon Dobson, Pharm.D., R.Ph. - Comment: hold vancomycin until after lab is drawn. Thanks) PRN Medication Order 08/03/2024 08/04/2024 08/05/2024 lidocaine 10 mg/mL (1 %) injection (Xylocaine) (COMPLETED) As needed, Starting on Thu08/03/24 at 0937, Intra-Op 0937 (Given - Provider: Ryan Jack M.D.) sennosides-docusate sodium 8.6-50 mg per tablet 2 tablet (Senokot-S) 2 tablet, oral, 2 times daily PRN, constipation, Starting on Thu08/02/24 at 2323 sodium chloride 0.9 % injection 10 mL 10 mL, intravenous, As needed, line care, Starting on Thu08/02/24 at 1644, Peripheral Intravenous Catheter and Rapid Infusion Catheter, prior to blood sampling, post blood transfusion or post blood sampling sodium chloride 0.9 % injection 3 mL 3 mL, intravenous, As needed, line care, Starting on Thu08/02/24 at 1644, Prior to and following infusion and between multiple consecutive infusions: sodium chloride 0.9 % injection documented in this encounter Additional Health Concerns Infection Onset Date Last Indicated Resolved Time COVID19 Pending 08/02/2024 08/02/2024 08/02/2024 6 :41 PM CDT documented as of this encounter Care Teams [employer]ide [employer] As[employer]er Relationship Specialty Start Date End Date Elsewhere, Pcp PCP - General Internal Medicine 08/19/21 documented as of this encounter
--- OUTSIDE RECORDS SUMMARY | 2024-08-17 13:00 | XMS_ITS | Encounter Summary ---
Author Organization [facility] Address [address] [place] [id number] Care Team Providers Care Corporate Health Consultant Name Role Phone Elsewhere, Pcp Primary Care Provider Unavailabl e Reason for Referral * Outpatient (Routine) - Authorized Specialty Diagnoses / Procedures Referred By Contac t Referred To Contact Diagnoses Ascites Procedures US Abdomen Limited US Abdomen Limited Liver Marv Myrick M.D., M.P.H. [address] [place] [address] Phone: tel: fax: [facility] Referral ID Status Reason Start Date Expiration Date V isits Requested Visits Authorized [id number] Authorized 08/17/2024 11/17/2025 1 1 * Outpatient (Routine) - Authorized Specialty Diagnoses / Procedures Referred By Contact Referred To Contact Gastroenterology and Hepatology Marv Myrick M.D., M.P.H. [address] [place] [address] Phone: tel: fax: [facility] Referral ID Status Reason Start Date Expiration Date V isits Requested Visits Authorized [id number] Authorized 08/17/2024 02/16/2026 1 1 Scheduling Instructions Visit with me at 130 pm after labs and US Reason for Visit * Outpatient (Routine) - Closed Specialty Diagnoses / Procedures Referred By Contact Referred To Contact Gastroenterology and Hepatology Yanna Zarate M.B.B.S. [address] [place] [phone] Phone: tel: fax: Marv Myrick M.D., M.P.H. [address] [place] [phone] Phone: tel:[phone] fax:[phone] Referral ID Status Reason Start Date Expiration Date Visits Re quested Visits Authorized [id number] Closed 08/11/2024 02/10/2026 1 1 Encounter Details Date Type Department Care Team (Latest Contact Info) Description 08/17/2024 1:00 PM CDT Office Visit Division of Gastroenterology in [place], [place] [address] [place] [phone] Marv Myrick M.D., M.P.H. [address] [place] [phone] Ascites (Primary Dx) Social History Tobacco Use Types Packs/Day Years Used Date Smoking Tobacco: Never Smokeless Tobacco: Never Alcohol Use Standard Drinks/Week Comments Not Currently 0 (1 standard drink = 0.6 oz pur e alcohol) Don t drink [facility] Utilities Answer Date Recorded In the past 12 months has [employer], gas, oil, or water [employer] threatened to shut off services in your home? No 08/11/2024 Humiliation, Afraid, Rape, and Kick questionnair e [...] How often do you attend chur or roman catholic services? More than 4 times per year 04/27/2022 Do you belong to any clubs o r organizations such as jain groups, unions, fraternal or athletic groups, or [...] and heating? Not hard at all 04/27/2022 [facility] [...] exercise (like a brisk walk)? 0 days 08/11/2024 On average, how many minutes do you engage in exercise at this level? 0 min 08/11/2024 Hunger Vital Sign Answer Date Recorded Within the past 12 months, y ou worried that your food would run out before you got the money to buy more. Never true 08/12/19 25 Within the past 12 months, t he food you bought just didn't last and you didn't have money to get more. Never true 08/11/2024 PRAPARE - Transportation Answer Date Re corded In the past 12 months, has l ack of transportation kept you from medical appointments or from getting medications? No 07/22 In the past 12 months, has l ack of transportation kept you from meetings, work, or from getting things needed for daily living? No 08/11/2024 Nutrition Answer Date Recorded On average, how many serving s of fruits and vegetables do you eat per day (serving size is equal to 1 cup or approximately the size of a tennis ball)? 3-5 08/11/2024 Dental Answer Date Recorded Dental: Regular Dentist Yes 11/12/19 Employment Answer Date Recorded Employment status Retired 08/11/2024 Housing Stability Answer Date Recorded What is your living situation today? I have a [employer] place to live 08/03/2024 Education Answer Date Recorded What is the highest level of school you have completed or the highest degree you have received? Bachelor's degree (e.g., BA, AB, BS) 11/11/2020 Sex and Gender Information Value Date Recorded Sex Assigned at Male 02/12/2021 6:18 PM EMERGENCY MEDICINE MEDICAL DIRECTOR Legal Sex Male 9:16 PM EMERGENCY MEDICINE MEDICAL DIRECTOR Gender Identity Male 11/11/2020 11:30 AM CDT Sexual Orientation Straight 11/11/2020 11 :30 AM CDT documented as of this encounter Progress Notes * Marv Myrick M.D., M.P.H. 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 Lab work showed no significant abnormalities in electrolyte or hepatic function. He recovered without specific intervention and has felt well after discharge Since my last visit with him, he has only required one LVP on March 30, 2024 after the reintroduction of furosemide 40 mg twice a day and spironolactone 100 mg twice a day. He denies any issues with tense ascites. Upon hospital dismissal, he was prescribed furosemide 20 mg daily with spironolactone 100 mg daily. Since going home, Mr. Jennings has been taking each of the medications twice a day He is still bothered by a recurrent left inguinal hernia. Scrotal ultrasound done locally on August 11 confirms the hernia with a small hydrocele in association. ASSESSMENT / PLAN #1 Ascites We will check an electrolyte panel now to exclude azotemia or other electrolyte disturbances. He will continue furosemide 20 mg twice a day and spironolactone 100 mg twice a day for now #2 Recurrent left inguinal hernia Reviewed with Dr. Gomes who performed his surgery in conjunction with Urology in August 2023. With a higher risk of recurrence after an initial operation, it was Dr. Gomes's recommendation that this not be pursued. I told Mr. Jennings that if we can get his ascites under better control without medical metabolic complications of diuretic use, then I would revisit this she again with Dr. Gomes #3 Clinically significant portal hypertension Intolerant of carvedilol. We will consider initiation of nadolol at bedtime once we have his diuretic dosing stabilized. 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 We will plan a return visit in 2-3 weeks with labs and abdominal US to check on the status of the ascites. documented in this encounter Plan of Treatment Upcoming Encounters Date Type Department Care Team (Late st Contact Info) Description 09/06/2024 1:00 PM CDT Appointment Department of Radiology, [facility], in [place], [place] [address] [place] [phone] Marv Myrick M.D., M.P.H. [address] [place] [phone] 09/07/2024 11:10 AM CDT Appointment Department of Laboratory Medicine and Pathology, [facility], in [place], [place] [address] [place] [phone] Marv Myrick M.D., M.P.H. [address] [place] [phone] 09/07/2024 1:30 PM CDT Office Visit Division of Gastroenterology in [place], [place] [address] [place] [phone] Marv Myrick M.D., M.P.H. [address] [place] [phone] Scheduled Orders Name Type Priority Associated Diagnoses Order Schedule CBC no call back, reflex T/S HGB <8 Lab Routine Ascites Expected: 09/07/2024, Expires: 11/17/2025 Basic Metabolic Panel Lab Routine Ascites Expected: 09/07/2024, Expires: 11/17/2025 Hepatic Function Panel Lab Routine Ascites Expected: 09/07/2024, Expires: 11/17/2025 Prothrombin Time (PT) Lab Routine Ascites Expected: 09/07/2024, Expires: 11/17/2025 US Abdomen Limited Imaging RAD - Routine (most inpatients and all outpatients) Ascites Expected: 09/07/2024, Expires: 08/17/2025 Scheduled Referrals Name Type Priority Associated Diagnoses Order Schedule Gastroenterology and Hepatology office visit (clinic) Outpatient Referral Routine Expected: 09/07/2024, Expires: 11/17/2025 documented as of this encounter Results * (ABNORMAL) Basic Metabolic Panel (08/17/2024 1:50 PM CDT) Potassium, S 4.4 3.6 - 5.2 mmol/L 08/17/2024 3:12 PM CDT DTL Sodium, S 134(L) 135 - 145 mmol/L 08/17/2024 3:12 PM CDT DTL Chloride, S 95(L) 98 - 107 mmol/L 08/17/2024 3:12 PM CDT DTL Bicarbonate, S 24 22 - 29 mmol/L 08/17/2024 3:12 PM CDT DTL Anion Gap 15 7 - 15 08/17/2024 3:12 PM CDT DTL BUN (Blood Urea Nitrogen), S 25(H) 8 - 24 mg/dL 08/17/2024 3:12 PM CDT DTL Creatinine 1.37(H) 0.74 - 1.35 mg/dL 08/17/2024 3:12 PM CDT DTL Estimated GFR (eGFR) 54(L) >=60 mL/min/BSA 08/17/2024 3:12 PM CDT DTL Comment: Estimated GFR calculated using the 2020 CKD_EPI creatinine equation. Calcium, Total, S 10.5(H) 8.8 - 10.2 mg/dL 08/17/2024 3:12 PM CDT DTL Glucose, S 213(H) 70 - 140 mg/dL 08/17/2024 3:12 PM CDT DTL Blood (Blood, Venous) 08/17/2024 1:50 PM CDT 08/17/2024 2:33 PM CDT Marv Myrick M.D., M.P.H. LAB BLOOD ADD-ON Final Result [facility] [address] [place] [address], [facility] DTL [facility] [address] [place] [address] documented in this encounter Visit Diagnoses Diagnosis Ascites- Primary documented in this encounter Care Teams Corporate Health Consultant Relationship Specialty Start Date End Date Elsewhere, Pcp PCP - General Internal Medicine 08/19/21 documented as of this encounter
--- OUTSIDE RECORDS SUMMARY | 2024-08-17 13:35 | XMS_ITS | Encounter Summary ---
Author Organization [facility] Address [address] [place] [address] Care Team Providers Care Computer Patternmaker Name Role Phone Elsewhere, Pcp Primary Care Provider Unavailabl e Encounter Details Date Type Department Care Team (Latest Contact Info) Description 08/17/2024 1:35 PM CDT - 08/17/2024 11:59 PM CDT Hospital Encounter Department of Laboratory Medicine and Pathology, [facility], in [place], [place] [address] [place] [phone] Marv Myrick M.D., M.P.H. [address] [place] [phone] Ascites Discharge Disposition: Home or Self Care Social History Tobacco Use Types Packs/Day Years Used Date Smoking Tobacco: Never Smokeless Tobacco: Never Alcohol Use Standard Drinks/Week Comments Not Currently 0 (1 standard drink = 0.6 oz pur e alcohol) Don t drink [facility] Utilities Answer Date Recorded In the [...] and heating? Not hard at all 04/27/2022 [facility] [employer] [facility] - Occupational Stress [...] your living situation today? I have a [facility] place to live 08/03/2024 Education Answer Date Recorded What is the highest level of school you have completed or the highest degree you have received? Bachelor's degree (e.g., BA, AB, BS) 11/11/2020 Sex and Gender Information Value Date Recorded Sex Assigned at Male 02/12/2021 6:18 PM STRUCTURAL FITTER Legal Sex Male 9:16 PM STRUCTURAL FITTER Gender Identity Male 11/11/2020 11:30 AM CDT [...] by mouth 2 (two) times a day. multivitamin-iron -[id number]-Kk-[id number] 400 mcg (folic acid) tablet Take 1 tablet by mouth daily. 30 tablet 08/06/2024 omeprazole (PriLOSEC) [address] capsule Take 20 mg by mouth every morning before breakfast. 07/20/2020 rosuvastatin (CRESTOR) 20 mg tablet Take 20 mg by mouth daily. 05/15/2020 furosemide (Lasix) 20 mg tablet Take 1 tablet (20 mg total) by mouth daily. 08/05/2024 08/29/2024 sennosides-docusa te sodium (SENOKOT-S) 8.6-50 mg per tablet Take 2 tablets by mouth 2 (two) times a day. 30 tablet 08/28/2023 08/30/2024 spironolactone (Aldactone) 100 mg tablet Take 1 tablet (100 mg total) by mouth daily. 08/05/2024 08/24/2024 documented as of this encounter Plan of Treatment Upcoming Encounters Date Type Department Care Team (Late st Contact Info) Description 09/06/2024 1:00 PM CDT Appointment Department of Radiology, [facility] in [place], [place] [address] [place] [phone] Marv Myrick M.D., M.P.H. [address] [place] [phone] 09/07/2024 11:10 AM CDT Appointment Department of Laboratory Medicine and Pathology, [facility] in [place], [place] [address] [place] [phone] Marv Myrick M.D., M.P.H. [address] [place] [phone] 09/07/2024 1:30 PM CDT Office Visit Division of Gastroenterology in [place], [place] [address] [place] [phone] Marv Myrick M.D., M.P.H. [address] [place] [phone] documented as of this encounter Procedures Procedure Name Priority Date/Time Associated Diagnosis Comments BASIC METABOLIC PANEL, S/P Routine 08/17/2024 1:50 PM CDT Ascites documented in this encounter Results * (ABNORMAL) Basic Metabolic [...] M.D., M.P.H. LAB BLOOD ADD-ON Final Result [facility] [address] [place] [address], [place] DTL [facility] [address] [place] [address] documented in this encounter Visit Diagnoses Diagnosis Ascites documented in this encounter Care Teams Computer Patternmaker Relationship Specialty Start Date End Date Elsewhere, Pcp PCP - General Internal Medicine 08/19/21 documented as of this encounter
--- OUTSIDE RECORDS SUMMARY | 2024-08-29 10:11 | XMS_ITS | Encounter Summary ---
Author Organization [facility] Address [address] [place] [address] Care Team Providers Care Securities Vault Supervisor Name Role Phone Elsewhere, Pcp Primary Care Provider Unavailabl e Reason for Visit * Reason Comments Altered Mental Status Weakness - Generalized Encounter Details Date Type Department Care Team (Latest Contact Info) Description 08/29/2024 10:11 AM CDT - 08/30/2024 12:06 PM CDT Hospital Encounter [facility], [facility], [facility], Third Floor [address] [place] [phone] Jane Ritchie APRN, C.N.P., D.N.P., M.S.N. [address] [place] [phone] Dominique White M.D. [address] [place] [phone] Weakness General (Primary Dx); Change Mental Status; Encephalopathy Metabolic Discharge Disposition: Home or Self Care Social History Tobacco Use Types Packs/Day Years Used Date Smoking Tobacco: Never Smokeless Tobacco: Never Alcohol Use Standard Drinks/Week Comments Not Currently 0 (1 standard drink = 0.6 oz pur e alcohol) Don t drink [facility] Utilities Answer Date Recorded In the past 12 months has th e electric, gas, oil, or water company threatened to shut off services in your home? No 08/29/2024 Humiliation, Afraid, Rape, and Kick questionnair e Answer Date Recorded Within the last year, have y ou been afraid of your partner or ex-partner? No 08/29/2024 Within the last year, have y ou been humiliated or emotionally abused in other ways by your partner or ex-partner? No Within the last year, have y ou been kicked, hit, slapped, or otherwise physically hurt by your partner or ex-partner? No 08/29/2024 Within the last year, have y ou been raped or forced to have any kind of sexual activity by your partner or ex-partner? No 08/29/2024 Social Connection and Isolat ion Panel [NHANES] Answer Date Recorded In a typical week, how many times do you talk on the phone with family, friends, or neighbors? More than three times a week 04/27/2022 How often do you get togethe r with friends or relatives? Twice a week 04/27/2022 How often do you attend chur ch or latter day services? More than 4 times per year [...] and heating? Not hard at all 04/27/2022 [facility] Occupat ional [facility] - Occupational Stress [...] the money to buy more. Never true 08/30/19 25 Within the past 12 months, t he food you bought just didn't last and you didn't have money to get more. Never true 08/29/2024 PRAPARE - Transportation Answer Date Re corded In the past 12 months, has l ack of transportation kept you from medical appointments or from getting medications? No 11/2024 In the past 12 months, has l ack of transportation kept you from meetings, work, or from getting things needed for daily living? No 08/29/2024 Nutrition Answer Date Recorded On average, how [...] your living situation today? I have a [facility] place to live 08/29/2024 Education Answer Date Recorded What is the highest level of school you have completed or the highest degree you have received? Bachelor's degree (e.g., BA, AB, BS) 11/11/2020 Sex and Gender Information Value Date Recorded Sex Assigned at Male 02/12/2021 6:18 PM TEST ANALYST Legal Sex Male 9:16 PM TEST ANALYST Gender Identity Male 11/11/2020 11:30 AM CDT Sexual Orientation Straight 11/11/2020 11 :30 AM CDT documented as of this encounter Last Filed Vital Signs Vital Sign Reading Time Taken Comments Blood Pressure 94/66 08/30/2024 11:18 AM CDT Pulse 71 08/30/2024 11:18 AM CDT Temperature 36.7 C (98.1 F) 08/30/2024 11:18 AM CDT Respiratory Rate 16 08/30/2024 11:18 AM CDT Oxygen Saturation 97% 08/30/2024 11:18 AM CDT Inhaled Oxygen Concentration - - Weight 56 kg (123 lb 7.3 oz) 08/29/2024 5:40 PM CDT Height 172.7 cm (5' 8) 08/29/2024 5:40 PM CDT Body Mass Index 18.77 08/29/2024 5:40 PM CDT documented in this encounter Discharge Summaries * Kaity Cage P.A.-C. - 08/30/2024 10:15 AM CDT DISCHARGE SUMMARY Discharge Provider: Dominique White M.D. Primary Care Providers: Elsewhere, Pcp (General) No address on file Discharge Provider Team: [facility] ([facility]) [facility] ([facility]) Primary Care Provider Phone Number: None Primary Care Provider Fax Number: None Admission Date: 08/29/2024 Discharge Date: 08/30/2024 PRINCIPAL DIAGNOSIS Weakness General SECONDARY DIAGNOSES Principal Problem: Weakness General Active Problems: Diabetes Mellitus Type 2 (HCC) Gastroesophageal Reflux Disease NOS Hepatitis Autoimmune (HCC) Hypertension Essential Primary Hypertension Portal (HCC) Secondary Esophageal Varices Without Bleeding (HCC) Unspecified Cirrhosis Of Liver (HCC) Thrombosis Deep Vein Personal History Hyperlipidemia Thrombocytopenia Failure Renal Acute (Acute Kidney Injury) Hyperkalemia Hyponatremia Resolved Problems: Delirium DISCHARGE DISPOSITION Home or Self Care [1] ACTIVE ISSUES REQUIRING FOLLOW UP --Reduce Lasix 20 mg and spironolactone 100 mg both from twice daily back to once daily dosing. --Follow up with primary care provider 09/02/2024 with repeat metabolic panel to continue to monitorrenal function and potassium. --Follow up with GI as previously scheduled for 09/07/2024. --Continue to monitor daily weight and further adjustments may be need to diuretic regimen with primary care and GI. OUTPATIENT FOLLOW UP Scheduled Appointments 09/06/2024 1:00 PM US MAYO 03 RM 09 Radiology 09/07/2024 11:10 AM LAB BLOOD KOMAL BERKOWITZ C Laboratory Medicine 09/07/2024 1:30 PM Marv Myrick M.D., M.P.H. Gastroenterology and Hepatology For appointment details refer to your Patient Appointment Guide. TEST RESULTS PENDING AT DISCHARGE Pending Labs Order Current Status Bacteria / Neda Culture, Blood #1 In process Bacteria / Neda Culture, Blood #2 In process DETAILS OF HOSPITAL STAY REASON FOR ADMISSION Weakness General HOSPITAL COURSE Mr. Niko Jeninngs is a 73 y.o. male with medical conditions including autoimmune hepatitis complicated by cirrhosis (with sequelae of portal venous hypertension including splenomegaly, upper abdominal and esophageal varices, ascites, portal colopathy, chronic thrombocytopenia), hypertension, hyperlipidemia, history of DVT (not currently on anticoagulation), type II diabetes, CKD stage III (baseline creatinine 1.1-1.2), and umbilical and left inguinal hernia s/p repair 08/2023 (now recurrent but no immediate plans for surgical intervention). He was recently admitted from 08/02/2024 to08/05/2024 for weakness/malaise/fevers/elevated lactate with concern for sepsis but no identified source (SBP ruled out, completed empiric course of Ciprofloxacin). His Lasix was increased from 20 mg daily to 20 mg BID and his Spironolactone was increased from 100 mg daily to 100 mg BID on discharge. He was admitted on 08/29/2024 for lightheadedness/dizziness and profound altered mental status (got lost within his own house, forgot how to use his phone, tried to use his phone to change the TV channel). No prior history of hepatic encephalopathy. Consistent 2 formed BMs/day recently. No fevers/chills. LE edema is less than typical. No recent falls. Admission weight down over 7 kg from 1 month ago. Blood work showed no leukocytosis. Several indicators of dehydration including DANELLE with creatinine up to 1.73, hyponatremia 129, UA suggestive of ATN, and mild hypercalcemia (10.6). Lactate also elevated to 3.9, improved to 2.4 after IV fluids.Urine also seems concentrated. Fortunately, no current evidence for infection. UA without pyuria. Ammonia WNL. No nausea, vomiting, or abdominal pain. Bedside ultrasound performed in the ED did not detect any significant ascites. Blood cultures were drawnand patient was admitted to the Medicine 8 service for further management. His mental status rapidly improved following IV fluids alone. Repeat BMP showed increase in potassium up to 5.6 for which he received a single dose of Kayexalate on admission. Potassium normalized. His Lasix and spironolactone were temporarily held given concerns for dehydration. He continued to mentate well overnight into the following day. He was tolerating oral intake and BMP demonstrated normal potassium and calcium with creatinine improved to 1.6. Decision was made to reduce diuretics backto prior dosing from before last hospitalization with Lasix and spironolactone daily. He has close primary care follow-up on 09/02, as well as GI follow-up 09/07 that was previously arranged. He remained afebrile and hemodynamically stable, tolerating an oral diet, and ambulating independently prior to discharge home with his on 08/30/2024. MEDICATIONS CHANGED DURING THIS HOSPITAL STAY Medications stopped: None Medications changed: Lasix, Senokot, spironolactone Medications added: None CONSULTS ORDERED DURING THIS ADMISSION IP CONSULT TO DIETITIAN CONDITION AT DISCHARGE Stable I saw and evaluated Mr. Niko Jennings today and provided counseling [id number] at bedside. I personally spent a total 45 minutes in counseling and discussion with the patient and in coordination of care as described above to facilitate the hospital discharge. Discharge instructions were provided to the patient and caregiver(s). documented in this encounter Discharge Instructions * Discharge Instructions* Breanna Dorado - 08/29/2024 2:33 PM CDT You were discharged from the [facility] ([facility]) Service. Please identify this service name if youcall with questions after hospitalization. * Attachments The following attachments cannot be sent through Care Everywhere. * Guidelines for a Potassium-Controlled Diet documented in this encounter Medications at Time of Discharge cholecalciferol (VITAMIN D3) 125 mcg (5,000 Unit) tablet Take 125 mcg by mouth daily. empagliflozin (JARDIANCE) 10 mg tablet Take 1 tablet by mouth daily. 12/05/2020 ferrous gluconate (FERGON) 324 mg (38 mg iron) tablet Take 324 mg by mouth daily. furosemide (Lasix) 20 mg tablet Take 1 tablet (20 mg total) by mouth daily. 08/30/2024 metFORMIN XR (GLUCOPHAGE-XR) 500 mg 24 hr tablet Take 500 mg by mouth 2 (two) times a day. multivitamin-iron -KL-Tq-uaettoqb 400 mcg (folic acid) tablet Take 1 tablet by mouth daily. 30 tablet 08/06/2024 omeprazole (PriLOSEC) [address] capsule Take 20 mg by mouth every morning before breakfast. 07/20/2020 rosuvastatin (CRESTOR) 20 mg tablet Take 20 mg by mouth daily. 05/15/2020 sennosides-docusa te sodium (Senokot-S) 8.6-50 mg per tablet Take 2 tablets by mouth as needed for constipation. 08/30/2024 spironolactone (Aldactone) 100 mg tablet Take 1 tablet (100 mg total) by mouth daily. 08/30/2024 documented as of this encounter Progress Notes * Lobo Camejo, Pharm.D., R.Ph. - 08/30/2024 7:39 AM CDT Pharmacy Inpatient Profile Review Reason for admission: Altered mental status; DANELLE PMH: autoimmune hepatitis complicated by cirrhosis (with sequelae of portal venous hypertension including splenomegaly, upper abdominal and esophageal varices, ascites, portal colopathy, chronic thrombocytopenia), HTN, HLD, history of DVT (not currently on anticoagulation), type II diabetes, CKD stage III (baseline creatinine 1.1-1.2), and umbilical and left inguinal hernia s/p repair 08/2023 (now recurrent but no immediate plans for surgical intervention). Medication Reconciliation Medication History: per provider -Changed: Pantoprazole formulary sub for omeprazole -Held: Furosemide, spironolactone, metformin XR, empagliflozin, vitamin-D, iron -New: Lactulose -VTE Prophylaxis: none Renal status: Serum creatinine: 1.61 mg/dL (H) 08/29/242140 Estimated creatinine clearance: 31.4 mL/min (A) --baseline sCr 1.1-1.2 # DANELLE --sCr 1.78 on admit, improved last night after IV fluids --K has been fluctuating over past day 3.9-5.6 --s/p Kayexalate 15 gm x 1 yesterday --a.m. labs pending -- Holding furosemide; spironolactone # Encephalopathy, improving rapidly with fluids alone # Elevated lactate # Rule out sepsis # Possible hepatic encephalopathy, though no prior history of HE and no recent constipation. -- Lactulose 10 gm BID # Type 2 DM -- Holding metformin XR, empagliflozin # chronic home meds --continues prior to admit listed regimens of rosuvastatin; ppi sub; multivitamin Lobo Camejo Pharm.D., R.Ph. documented in this encounter H&P Notes * Mary Bentley M.D. - 08/29/2024 12:43 PM CDT Images from the original note were not included. [facility] ([facility]) Admission Note SUBJECTIVE CHIEF COMPLAINT / REASON FOR VISIT AMS, DANELLE. HISTORY OF PRESENT ILLNESS Niko Jennings is a 73 y.o. with medical conditions including autoimmune hepatitis complicated by cirrhosis (with sequelae of portal venous hypertension including splenomegaly, upper abdominal and esophageal varices, ascites, portal colopathy, chronic thrombocytopenia), HTN, HLD, history of DVT (not currently on anticoagulation), type II diabetes, CKD stage III (baseline creatinine 1.1-1.2), and umbilical and left inguinal hernia s/p repair 08/2023 (now recurrent but no immediate plansfor surgical intervention). He was recently admitted from 08/02/2024 to 08/05/2024 for weakness/malaise/fevers/elevated lactate with concern for sepsis but no identified source (SBP ruled out, completed empiric course of Ciprofloxacin). His Lasix was increased from 20 mg daily to 20 mg BID and his Spironolactone was increased from 100 mg daily to 100 mg BID on discharge. He was admitted on 08/29/2024 for lightheadedness/dizziness and profound altered mental status (got lost within his own house, forgot how to use his phone, tried to use his phone to change the TV channel). No prior history of hepatic encephalopathy. Consistent 2 formed BMs/day recently. No fevers/chills. LE edema is less than typical. No recent falls. Admission weight not available, but he feels like his weight is somewhat down. Blood work showed no leukocytosis. Several indicators of dehydration including DANELLE with creatinine up to 1.73, hyponatremia 129, UA suggestive of ATN, and mild hypercalcemia. Urine also seems concentrated. Fortunately, no current evidence for infection. UA without pyuria. No N/V/abdominal pain. He was given 500 cc IV fluids in the ED and his mental status has improved significantly. He was able to verify his home medication list with me independently and asked detailed questions about any potential medication changes doing forward. His is impressed and pleased with the improvement as well. Meds, allergies, medical, surgical, social & family histories have been reviewed & updated as necessary. Current Outpatient Medications on File Prior to Encounter: cholecalciferol (VITAMIN D3) 125 mcg (5,000 Unit) tablet, Take 125 mcg by mouth daily. empagliflozin (JARDIANCE) 10 mg tablet, Take 1 tablet by mouth daily. ferrous gluconate (FERGON) 324 mg (38 mg iron) tablet, Take 324 mg by mouth daily. furosemide (Lasix) 20 mg tablet, Take 1 tablet (20 mg total) by mouth daily. furosemide (Lasix) 20 mg tablet, Take 1 tablet (20 mg total) by mouth 2 (two) times a day. metFORMIN XR (GLUCOPHAGE-XR) 500 mg 24 hr tablet, Take 500 mg by mouth 2 (two) times a day. dvogwkuvcegc-xblo-HU-Ca-minerals 400 mcg (folic acid) tablet, Take 1 tablet by mouth daily. omeprazole (PriLOSEC) [address] capsule, Take 20 mg by mouth every morning before breakfast. rosuvastatin (CRESTOR) 20 mg tablet, Take 20 mg by mouth daily. sennosides-docusate sodium (SENOKOT-S) 8.6-50 mg per tablet, Take 2 tablets by mouth 2 (two) times a day. (Patient taking differently: Take 2 tablets by mouth as needed.) spironolactone (Aldactone) 100 mg tablet, TAKE 1 TABLET (100 MG TOTAL) BY MOUTH 2 (TWO) TIMES A DAY. OBJECTIVE VITAL SIGNS Temperature: [36.6 ??C] 36.6 ??C Heart Rate: [70-77] 72 Resp Rate: [10-20] 11 Blood Pressure: (108-122)/(64-78) 118/73 SpO2: [96 %-99 %] 98 % Pulse Rate: [70-77] 72 PHYSICAL EXAMINATION General: Alert and Orientated x 3, no acute distress, possibly somewhat delayed answers but even that was subtle Heart: Regular rate and rhythm, no murmurs appreciated Lungs: Clear to auscultation bilaterally, no wheezing Abdomen: Soft, nontender, nondistended, normal bowel sounds Skin: Warm, dry, no rashes noted, no LE edema Neuro: No definite asterixis though a little tremor DIAGNOSTICS I have independently reviewed the labs from admission ASSESSMENT / PLAN #1 Weakness General HIM Provider Care Team: [facility] ([facility]) Mary Bentley - [id number] I'm delighted to see that his mental status changes are improving rapidly with fluid alone. Repeat labs however show continued need for monitoring - particularly of his potassium. No role for antibiotics currently. # Encephalopathy, improving rapidly with fluids alone # Elevated lactate # Rule out sepsis # Possible hepatic encephalopathy, though no prior history of HE and no recent constipation. - Fortunately no recent fevers or localizing symptoms concerning for infection. I considered paracentesis, but ED bedside US did not detect any ascites and that is consistent with my exam as well. - Blood and urine cultures pending, but no urinary symptoms reported - Home PRN Senna replaced by low dose Lactulose. That might be a better long- term medication for him given potential risk of HE. ADDENDUM: Repeat lactated improving as expected # Hyperkalemia on repeat labs - Further 500 cc fluid overnight - Low K+ diet - Single dose Kayexalate on admission. - Repeat BMP and lactate at 10 pm. - Anticipated to improve as his renal function improves with IV fluids. # Dehydration secondary to increased Lasix and Spironolactone during recent hospitalization # DANELLE secondary to prerenal ATN # CKD stage III (baseline creatinine 1.1-1.2) # Hyponatremia secondary to dehydration # Hypercalcemia, likely due to dehydration - Hold Lasix and Spironolactone for now. Eventually will likely need to resume his prior regimen ofLasix 20 mg daily and Spironolactone 100 mg daily. DIET: No diet orders on file TUBES/LINES: Lines, Drains, and Airways Peripheral IV Duration Peripheral IV 08/29/24 18 G Left Antecubital 5h Wound Duration Wound 08/03/24 Abdomen Medial;Right 26d 6h Wound 03/30/24 Abdomen Lateral;Right paracentesis site 152d 5h VTE PROPHYLAXIS: Low risk (anticipated stay <24 hrs) CODE STATUS: Full Code BASELINE MOBILITY: BMAT Level 4 (Able to stand and walk) DISPOSITION: Home I personally spent a total of 90 minutes providing and coordinating care today. documented in this encounter Nursing Notes * Tulio Hedrick R.N. - 08/30/2024 11:52 AM CDT Pt discharged home with family. AVS reviewed with pt and family. VSS prior to discharge. All questions answered. Vitals: 08/30/24 1118 BP: 94/66 Pulse: 71 Resp: 16 Temp: 36.7 ??C SpO2: 97% * Lesly Pan R.N. - 08/30/2024 6:54 AM CDT Problem: Risk for Compromised Skin Integrity-Other Mailroom Clerk(s) Goal: Risk for Compromised Skin Integrity-Other Mailroom Clerk(s) 08/30/2024 0654 by Lesly Pan R.N. Outcome: Progressing 08/30/2024 0540 by Pan, Lesly, R.N. Outcome: Progressing Problem: SAFETY ADULT Goal: Maintain a safe environment 08/30/2024653 by Lesly Pan, R.N. Outcome: Progressing 08/30/2024539 by Lesly Pan, R.N. Outcome: Progressing Problem: SAFETY ADULT - RISK FOR FALL AND OR FALL INJURY Goal: Patient remains free from fall/fall injury 08/30/2024653 by Lesly Pan, R.N. Outcome: Progressing 08/30/2024539 by Lesly Pan, R.N. Outcome: Progressing Problem: PAIN - ADULT Goal: PT VERBALIZES/DEMONSTRATES ADEQUATE COMFORT LEVEL OR BASELINE 08/30/2024653 by Lesly Pan, R.N. Outcome: Progressing 08/30/2024539 by Lesly Pan, R.N. Outcome: Progressing Problem: KNOWLEDGE DEFICIT Goal: Patient/family/caregiver demonstrates understanding of disease process, treatment plan, medications, and discharge instructions 08/30/2024653 by Lesly Pan, R.N. Outcome: Progressing 08/30/2024539 by Lesly Pan, R.N. Outcome: Progressing Problem: INFECTION - ADULT Goal: Absence of infection during hospitalization 08/30/2024653 by Lesly Pan, R.N. Outcome: Progressing 08/30/2024539 by Lesly Pan, R.N. Outcome: Progressing Problem: SKIN/TISSUE INTEGRITY Goal: Skin/Tissue integrity maintained or improved 08/30/2024653 by Lesly Pan, R.N. Outcome: Progressing 08/30/2024539 by Lesly Pan, R.N. Outcome: Progressing Goal: Oral and Nasal mucous membranes remain intact 08/30/2024653 by Lesly Pan, R.N. Outcome: Progressing 08/30/2024539 by Lesly Pan, R.N. Outcome: Progressing Problem: DISCHARGE PLANNING Goal: Patient discharge needs identified 08/30/2024653 by Lesly Pan, R.N. Outcome: Progressing 08/30/2024539 by Lesly Pan, R.N. Outcome: Progressing Problem: Risk for Compromised Skin Integrity-Joey Activity Score 3 Goal: Achieve optimal activity to maintain or improve skin integrity. 08/30/2024653 by Lesly Pan R.N. Outcome: Progressing 08/30/2024 0540 by Lesly Pan R.N. Outcome: Progressing Problem: GASTROINTESTINAL - ADULT Goal: Optimize bowel function 08/30/2024653 by Lesly Pan R.N. Outcome: Progressing 08/30/2024 0540 by Lesly Pan R.N. Outcome: Progressing Problem: METABOLIC/FLUID AND ELECTROLYTES - ADULT Goal: Electrolytes maintained within normal limits 08/30/2024653 by Lesly Pan R.N. Outcome: Progressing 08/30/2024 0540 by Lesly Pan R.N. Outcome: Progressing Problem: HEMATOLOGIC - ADULT Goal: Maintains hematologic stability 08/30/2024653 by Lesly Pan R.N. Outcome: Progressing 08/30/2024 05 by Lesly Pan R.N. Outcome: Progressing Shift Goals: Clinical Goals for the Shift: Maintain comfort and safety. Identify possible barriers to meeting goals/advancing plan of care: none. End of Shift Summary: AOx3, VSS, denies c/o pain. One BM last evening per pt report. Up to BR to void. Offers no c/o overnight. Safety maintained. documented in this encounter ED Notes * Jane Ritchie APRN, C.N.P., D.N.P., M.S.N. - 08/29/2024 10:54 AM CDT SUBJECTIVE CHIEF COMPLAINT/REASON FOR VISIT Altered Mental Status and Weakness - Generalized HISTORY OF PRESENT ILLNESS History provided by: Patient and EMS personnel Niko Jennings is a 73yo M with complex comorbidities type 2 diabetes, autoimmune hepatitis with history of cirrhosis and esophageal varices, hypertension, [facility] presents to the emergency department with altered mental status and concern of weakness. EMS is providing some of the history. noted patient to be confused yesterday, did not know how to use a remote, evening this morning he was walking and had a bowel movement and did not know he was having a bowel movement or finding his way to the bathroom. He then went back to bed and this noted him looking for a bathroom in the garage. Given his confusion and concern ofweakness called EMS. Upon arrival EMS noted a blood sugar of 202 and provided him 500 cc of IVfluid with an ECG. Per EMS patient is slower to respond. At present, patient denies recent fevers, chills, chest pain, shortness of breath, abdominal pain, cough or dysuria. I have reviewed his Past Medical History, surgical history, medications, and allergy list. REVIEW OF SYSTEMS Constitutional: Negative for chills and fever. Respiratory: Negative for chest tightness. Cardiovascular: Negative for chest pain. Gastrointestinal: Negative for abdominal pain. Musculoskeletal: Negative for extremity pain. Skin: Negative. Neurological: Negative for weakness. Psychiatric/Behavioral: Positive for confusion. OBJECTIVE Initial Vitals Temperature 08/29/24 1015 36.6 ??C Pulse Rate 08/29/24 1015 73 Heart Rate 08/29/24 1015 73 Resp Rate 08/29/24 1015 16 Blood Pressure 08/29/24 1015 116/64 SpO2 08/29/24 1015 97 % Pain Score 08/29/24 1029 0 - No pain PHYSICAL EXAMINATION Constitutional: Nursing note and vitals reviewed. HENT: Head: Normocephalic. No signs of injury. Mouth/Throat: Oropharynx is clear and moist. Eyes: EOM are normal. Pupils are equal, round, and reactive to light. Neck: Neck supple. Cardiovascular: S1 normal and S2 normal. No tachycardia present. Capillary refill: takes less than 3 seconds Pulmonary/Chest: Effort normal and breath sounds normal. Abdominal: Soft. Bowel sounds are normal. There is no abdominal tenderness. Rectal exam shows brownstool. Rectal exam shows guaiac negative stool. Musculoskeletal: Cervical back: Normal range of motion and neck supple. Neurological: Alert. He has normal strength and cranial nerves II through XII intact. He is disoriented. GCS eye subscore is 4. GCS verbal subscore is 5. GCS motor subscore is 5. Normal speech. Skin: Skin is warm, dry and intact. ASSESSMENT/PLAN Assessment and Plan I reviewed the following external records: prior outpatient labs, primary care records and office records. MDM: The patient is a 73 y.o. male who presents for AMS. The patient arrives still acutely altered. He is confused. At present, given the patient's history and my examination, the cause of the patient???Andrea is unclear. Possible etiologies in the differential includes hepatic encephalopathy, sepsis, acidosis, electrolyte derangements, hypo/hyperglycemia, ischemia, hypercarbic respiratory failure, uremia, intoxication or overdose, polypharmacy interactions, or an acute neurologic process including stroke/intracranial hemorrhage/meningitis. There is no evidence of toxidrome or intoxication. O2 sat is correlating with good oxygenation excluding hypoxia as the cause for the symptoms. In addition given his diabetes there was concern for DKA or HHS . ECG: SR with a ventricle rate of 71, bifascicular block, no ST elevations. QTC is 478. CT head is reassuring without acute findings. Chest x-ray is also without concerns of a pneumonia or other acute process. UA does have glucosuria however negative nitrites or leukocyte esterase. No concerns for urinary tract infection, pyelonephritis that could be contributing to the patient's symptoms. Today the patient is notably to be hyponatremic at 1:29 a.m. with an increase his seeing creatininefunction and BUN. I suspect his confusion is likely in the setting of a metabolic encephalopathy from his uremia. Patient's VBG is reassuring no concern of acidosis. His blood sugar today is 175 his anion gap is closed. Unlikely for this to be DKA or HHS. His anemia is stable. His lactate is elevated today at 3.9. Unclear etiology however could be driven from his acute kidney injury. Focus of his abdomen for a diagnostic paracentesis, No clear fluid pocket. I do not think this is SBP. Blood cultures have been obtained. His ammonia level is 16 today. Discussed with his that patient will likely be admitted for his altered mental status , metabolic encephalopathy. After IVFs, patient is awake and alert now his GCS is 15. Spoke with HIM given his improving mentalstatus, we considered close follow up with possible discharge, while the patient has a down trending lactate, his cr function is increasing, and so we will proceed to admission. MEDICATIONS ADMINISTERED: Medications multivitamin/mineral- tablet 1 tablet (has no administration in time range) pantoprazole DR tablet 40 mg (Protonix) (has no administration in time range) rosuvastatin tablet 20 mg (Crestor) (has no administration in time range) lactulose solution 10 g (10 g oral Given 08/29/24 1705) calcium carbonate chewable tablet 400 mg of calcium (Tums) (has no administration in time range) NaCl 0.9% infusion (has no administration in time range) NaCl 0.9% infusion (has no administration in time range) D5W infusion (has no administration in time range) sodium chloride 0.9 % injection 3 mL (3 mL intravenous Given 08/29/24 1740) sodium chloride 0.9 % injection 10 mL (has no administration in time range) sodium chloride 0.9 % injection 3 mL (has no administration in time range) NaCl 0.9 % bolus 500 mL (0 mL intravenous Stopped 08/29/24 1354) NaCl 0.9 % bolus 250 mL (0 mL intravenous Stopped 08/29/24 1643) Lactated Ringer's bolus 500 mL (500 mL intravenous New Bag 08/29/24 1740) sodium polystyrene sulfonate powder 15 g (Kayexalate) (15 g oral Given 08/29/24 1759) IMAGING: DX Chest AP or PA and Lateral 2 Views Final Result Comparison 08/02/2024. No focal consolidation or effusion. Similar diffuse interstitial thickening in both lungs suggesting underlying ILD . Normal cardiac size. Again, that is mild anterior wedging of a lower thoracic vertebral body. CT Head without IV Contrast Final Result No acute intracranial abnormality. LAST VITALS: Vitals: 08/29/24 1702 BP: 112/74 Pulse: 67 Resp: 14 Temp: 36.9 ??C SpO2: 98% ED Course as of 08/29/242207Aug 29, 2024 1133 Lactate(!): 3.9 Final Diagnoses: as of 08/29/242207 Weakness General Change Mental Status Encephalopathy Metabolic DISPOSITION: Hospitalization Care Handoff Row Name 08/29/24 1238 Care Handoff Type of Handoff Admission handoff Jane Ritchie APRN, C.N.P., D.N.P., M.S.N. 08/29/242208 * Keli Israel, R.N. - 08/29/2024 10:51 AM CDT pt. confused, speech is clear but at times appears to zone out and not answer questions or just starts rattling off numbers instead of using words. Per , pt. was confused last night and again this morning, found wondering around the garage looking for a bathroom. No falls/trauma. Recently hospitalized for sepsis 3 weeks ago. Keli Israel R.N. 08/29/24 1052 documented in this encounter Miscellaneous Notes * Hospital Course - Kaity Cage P.A.-C. - 08/29/2024 4:04 PM CDT Mr. Niko Jennings is a 73 y.o. male with medical conditions including autoimmune hepatitis complicated by cirrhosis (with sequelae of portal venous hypertension including splenomegaly, upper abdominal and esophageal varices, ascites, portal colopathy, chronic thrombocytopenia), hypertension, hyperlipidemia, history of DVT (not currently on anticoagulation), type II diabetes, CKD stage III (baseline creatinine 1.1-1.2), and umbilical and left inguinal hernia s/p repair 08/2023 (now recurrent but no immediate plans for surgical intervention). He was recently admitted from 08/02/2024 to08/05/2024 for weakness/malaise/fevers/elevated lactate with concern for sepsis but no identified source (SBP ruled out, completed empiric course of Ciprofloxacin). His Lasix was increased from 20 mg daily to 20 mg BID and his Spironolactone was increased from 100 mg daily to 100 mg BID on discharge. He was admitted on 08/29/2024 for lightheadedness/dizziness and profound altered mental status (got lost within his own house, forgot how to use his phone, tried to use his phone to change the TV channel). No prior history of hepatic encephalopathy. Consistent 2 formed BMs/day recently. No fevers/chills. LE edema is less than typical. No recent falls. Admission weight down over 7 kg from 1 month ago. Blood work showed no leukocytosis. Several indicators of dehydration including DANELLE with creatinine up to 1.73, hyponatremia 129, UA suggestive of ATN, and mild hypercalcemia (10.6). Lactate also elevated to 3.9, improved to 2.4 after IV fluids.Urine also seems concentrated. Fortunately, no current evidence for infection. UA without pyuria. Ammonia WNL. No nausea, vomiting, or abdominal pain. Bedside ultrasound performed in the ED did not detect any significant ascites. Blood cultures were drawnand patient was admitted to the Medicine 8 service for further management. His mental status rapidly improved following IV fluids alone. Repeat BMP showed increase in potassium up to 5.6 for which he received a single dose of Kayexalate on admission. Potassium normalized. His Lasix and spironolactone were temporarily held given concerns for dehydration. He continued to mentate well overnight into the following day. He was tolerating oral intake and BMP demonstrated normal potassium and calcium with creatinine improved to 1.6. Decision was made to reduce diuretics backto prior dosing from before last hospitalization with Lasix and spironolactone daily. He has close primary care follow-up on 09/02, as well as GI follow-up 09/07 that was previously arranged. He remained afebrile and hemodynamically stable, tolerating an oral diet, and ambulating independently prior to discharge home with his on 08/30/2024. documented in this encounter Plan of Treatment Upcoming Encounters Date Type Department Care Team (Late st Contact Info) Description 09/06/2024 1:00 PM CDT Appointment Department of Radiology, [facility], in [place], [place] [address] [place] [address] Marv Myrick M.D., M.P.H. [address] [place] [phone] 09/07/2024 11:10 AM CDT Appointment Department of Laboratory Medicine and Pathology, [facility] in [place], [place] [address] [place] [phone] Marv Myrick M.D., M.P.H. [address] [place] [phone] 09/07/2024 1:30 PM CDT Office Visit Division of Gastroenterology in [place], [place] [address] [place] [phone] Marv Myrick M.D., M.P.H. [address] [place] [phone] Pending Results Name Type Priority Associated Diagnoses Date /Time Bacteria / Neda Culture, Blood #1 Microbiology STAT 08/29/2024 11: 08 AM CDT Bacteria / Neda Culture, Blood #2 Microbiology STAT 08/29/2024 12: 46 PM CDT documented as of this encounter Procedures Procedure Name Priority Date/Time Associated Diagnosis Comments BASIC METABOLIC PANEL, S/P Timed 08/30/2024 8:27 AM CDT LACTATE, B/P Timed 08/29/2024 9:41 PM CDT BASIC METABOLIC PANEL, S/P Timed 08/29/2024 9:41 PM CDT BASIC METABOLIC PANEL, S/P STAT 08/29/2024 3:11 PM CDT LACTATE, B/P Timed 08/29/2024 2:12 PM CDT BACTERIA / NEDA CULTURE, BLOOD STAT 08/29/2024 12:46 PM CDT PROTHROMBIN TIME (PT), P Routine 08/29/2024 12:46 PM CDT DX CHEST AP OR PA AND LATERAL 2 VIEWS RAD - Semiurgent (Fast; most ED patients; some inpatients) 08/29/2024 11:[address] HEAD WITHOUT IV CONTRAST RAD - Semiurgent (Fast; most ED patients; some inpatients) 08/29/2024 11:19 AM CDT VBG & LYTES CG8+, POCT, B STAT 08/29/2024 11:10 AM CDT LACTATE FOR SEPSIS WITH REFLEX STAT 08/29/2024 11:08 AM CDT HEPATIC FUNCTION PANEL, S STAT 08/29/2024 11:08 AM CDT BETA-HYDROXYBUTYRA TE, S STAT 08/29/2024 11:08 AM CDT BACTERIA / NEDA CULTURE, BLOOD STAT 08/29/2024 11:08 AM CDT CBC WITH DIFFERENTIAL, B STAT 08/29/2024 11:08 AM CDT LIPASE, S/P STAT 08/29/2024 11:08 AM CDT AMMONIA STAT 08/29/2024 11:08 AM CDT BASIC METABOLIC PANEL, S/P STAT 08/29/2024 11:08 AM CDT HC URINALYSIS AUTO WO MICRO Routine 08/29/2024 11:01 AM CDT HC OSMOLALITY ASSAY URINE STAT 08/29/2024 10:55 AM CDT DIPSTICK, U STAT 08/29/2024 10:55 AM CDT PH, RANDOM, U STAT 08/29/2024 10:55 AM CDT MICROSCOPIC MANUAL STAT 08/29/2024 10 :55 AM CDT BACTERIAL CULTURE, AEROBIC + SUSC, URINE STAT 08/29/2024 10:55 AM CDT URINALYSIS WITH MICROSCOPIC STAT 08/29/2024 10:55 AM CDT ECG STAT 08/29/2024 10:26 AM CDT documented in this encounter Results * (ABNORMAL) Basic Metabolic Panel (08/30/2024 8:27 AM CDT) Potassium, S 4.3 3.6 - 5.2 mmol/L 08/30/2024 9:57 AM CDT DTL Sodium, S 129(L) 135 - 145 mmol/L 08/30/2024 9:57 AM CDT DTL Chloride, S 98 98 - 107 mmol/L 08/30/2024 9:57 AM CDT DTL Bicarbonate, S 20(L) 22 - 29 mmol/L 08/30/2024 9:57 AM CDT DTL Anion Gap 11 7 - 15 08/30/2024 9:57 AM CDT DTL BUN (Blood Urea Nitrogen), S 24 8 - 24 mg/dL 08/30/2024 9:57 AM CDT DTL Creatinine 1.67(H) 0.74 - 1.35 mg/dL 08/30/2024 9:57 AM CDT DTL Estimated GFR (eGFR) 42(L) >=60 mL/min/BSA 08/30/2024 9:57 AM CDT DTL Comment: Estimated GFR calculated using the 2020 CKD_EPI creatinine equation. Calcium, Total, S 9.6 8.8 - 10.2 mg/dL 08/30/2024 9:57 AM CDT DTL Glucose, S 133 70 - 140 mg/dL 08/30/2024 9:57 AM CDT DTL Blood (Blood, Venous) 08/30/2024 8:27 AM CDT 08/30/2024 9:26 AM CDT Mary Bentley M.D. LAB BLOOD ADD-ON Final Resu lt [facility] [address] [place] [address], [facility] DTL [facility] [address] [place] [address] * (ABNORMAL) Lactate (08/29/2024 9:41 PM CDT) Lactate, P 2.4(H) 0.5 - 2.2 mmol/L 08/29/2024 10:06 PM CDT STMA Blood (Blood, Venous) 08/29/2024 9:41 PM CDT 08/29/2024 9:47 PM CDT Mary Bentley M.D. LAB BLOOD NON ADD-ON Final Result [facility] [address] [place] [address], [facility] STMA [facility] [address] [place] [address] * (ABNORMAL) Basic Metabolic Panel (08/29/2024 9:41 PM CDT) Potassium, P 3.9 3.6 - 5.2 mmol/L 08/29/2024 10:09 PM CDT STMA Sodium, P 131(L) 135 - 145 mmol/L 08/29/2024 10:09 PM CDT STMA Chloride, P 100 98 - 107 mmol/L 08/29/2024 10:09 PM CDT STMA Bicarbonate, P 19(L) 22 - 29 mmol/L 08/29/2024 10:09 PM CDT STMA Anion Gap, P 12 7 - 15 08/29/2024 10:09 PM CDT STMA BUN (Blood Urea Nitrogen), P 25(H) 8 - 24 mg/dL 08/29/2024 10:09 PM CDT STMA Creatinine 1.61(H) 0.74 - 1.35 mg/dL 08/29/2024 10:09 PM CDT STMA Estimated GFR (eGFR) 44(L) >=60 mL/min/BSA 08/29/2024 10:09 PM CDT STMA Comment: Estimated GFR calculated using the 2020 CKD_EPI creatinine equation. Calcium, Total, P 9.9 8.8 - 10.2 mg/dL 08/29/2024 10:09 PM CDT STMA Glucose, P 201(H) 70 - 140 mg/dL 08/29/2024 10:09 PM CDT STMA Blood (Blood, Venous) 08/29/2024 9:41 PM CDT 08/29/2024 9:47 PM CDT us Mary Bentley M.D. LAB BLOOD ADD-ON Final Resu lt [facility] [address] [place] [address], [facility] STMA [facility] [address] [place] [address] * (ABNORMAL) Basic Metabolic Panel (08/29/2024 3:11 PM CDT) Potassium, P 5.6(H) 3.6 - 5.2 mmol/L 08/29/2024 3:42 PM CDT STMA Sodium, P 131(L) 135 - 145 mmol/L 08/29/2024 3:42 PM CDT STMA Chloride, P 100 98 - 107 mmol/L 08/29/2024 3:42 PM CDT STMA Bicarbonate, P 21(L) 22 - 29 mmol/L 08/29/2024 3:42 PM CDT STMA Anion Gap, P 10 7 - 15 08/29/2024 3:42 PM CDT STMA BUN (Blood Urea Nitrogen), P 26(H) 8 - 24 mg/dL 08/29/2024 3:42 PM CDT STMA Creatinine 1.78(H) 0.74 - 1.35 mg/dL 08/29/2024 3:42 PM CDT STMA Estimated GFR (eGFR) 39(L) >=60 mL/min/BSA 08/29/2024 3:42 PM CDT STMA Comment: Estimated GFR calculated using the 2020 CKD_EPI creatinine equation. Calcium, Total, P 10.6(H) 8.8 - 10.2 mg/dL 08/29/2024 3:42 PM CDT STMA Glucose, P 142(H) 70 - 140 mg/dL 08/29/2024 3:42 PM CDT STMA Blood (Blood, Venous) 08/29/2024 3:11 PM CDT 08/29/2024 3:21 PM CDT Jane Ritchie APRN C.N.P., D.N.P., M.S.N. LAB BLOOD ADD-ON Final Result Performing Organization Address [facility]/ZIP Co de Phone Number [facility] [address] [place] [address] * (ABNORMAL) Lactate (08/29/2024 2:12 PM CDT) Lactate, P 2.6(H) 0.5 - 2.2 mmol/L 08/29/2024 2:32 PM CDT STMA Blood 08/29/2024 2:12 PM CDT 08/29/2024 2:17 PM CDT Jane Ritchie APRN, C.N.P., D.N.P., M.S.N. LAB BLOOD NON ADD-ON Final Result Performing Organization Address [facility] Co de Phone Number [facility] [address] [place] [address], [facility] [address] [place] [address] * (ABNORMAL) Prothrombin Time (PT) (08/29/2024 12:46 PM CDT) Prothrombin Time, P 12.9(H) 9.4 - 12.5 sec 08/29/2024 1:18 PM CDT DTL INR 1.2 0.9 - 1.1 08/29/2024 1:18 PM CDT DTL Comment: ----ADDITIONAL INFORMATION---- Standard intensity warfarin therapeutic range: 2.0 to 3.0 High intensity warfarin therapeutic range: 2.5 to 3.5 Blood (Blood, Venous) 08/29/2024 12:46 PM CDT 08/29/2024 12:59 PM CDT Jane Ritchie APRN, C.N.P., D.N.P., M.S.N. LAB BLOOD ADD-ON Final Result [facility] [address] [place] [address], [facility] [address] [place] [address] * DX Chest AP or PA and Lateral 2 Views (08/29/2024 11:57 AM CDT) Anatomical Region Laterality Modality Chest, Thoracic RST LOS, Tho racic ARZ LOS, Thoracic FLA LOS N/A Digital Radiography Impressions 08/29/2024 12:00 PM CDT Comparison 08/02/2024. No focal consolidation or effusion. Similar diffuse interstitial thickening in both lungs suggesting underlying ILD . Normal cardiac size. Again, that is mild anterior wedging of a lower thoracic vertebral body. Narrative 08/29/2024 12:00 PM CDT EXAM: DX CHEST AP OR PA AND LATERAL 2 VIEWS Procedure Note Gladys Viera M.B.B.S. - 08/29/2024 EXAM: DX CHEST AP OR PA AND LATERAL 2 VIEWS IMPRESSION: Comparison 08/02/2024. No focal consolidation or effusion. Similar diffuseinterstitial thickening in both lungs suggesting underlying ILD . Normalcardiac size. Again, that is mild anterior wedging of a lower thoracicvertebral body. Jane Ritchie APRN, C.N.P. , D.N.P., M.S.N. IMG DIAGNOSTIC IMAGING PROCEDURES Final Result * CT Head without IV Contrast (08/29/2024 11:19 AM CDT) Anatomical Region Laterality Modality Head, Neuroradiology RST LOS , Neuroradiology ARZ LOS, Neuroradiology FLA LOS N/A Computed Tomography, Compute d Tomography Impressions 08/29/2024 11:24 AM CDT No acute intracranial abnormality. Narrative 08/29/2024 11:24 AM CDT EXAM: CT HEAD WITHOUT IV CONTRAST COMPARISON: None available on our PACS kitchen food server FINDINGS: Age-related global parenchymal volume loss is seen with associated minimal ex vacuo ventricular dilatation without hydrocephalus. No focal intracranial mass effect extra-axial collection, acute intracranial hemorrhage or definite acute infarction is seen. No more than trace white matter hypoattenuation is seen which is consistent with trace chronic microvascular ischemic change. Expected intracranial atherosclerotic calcifications are seen. Calvarium is intact and visualized portions of paranasal sinuses and mastoid air complexes are clear. Orbits are unremarkable. Procedure Note Jeff Mckenzie M.D. - 08/29/2024 EXAM: CT HEAD WITHOUT IV CONTRAST COMPARISON: None available on our PACS kitchen food server FINDINGS: Age-related global parenchymal volume loss is seen withassociated minimal ex vacuo ventricular dilatation without hydrocephalus.No focal intracranial mass effect extra-axial collection, acuteintracranial hemorrhage or definite acute infarction is seen. No more than trace white matter hypoattenuation isseen which is consistent with trace chronic microvascular ischemic change.Expected intracranial atherosclerotic calcifications are seen. Calvarium is intact and visualized portions of paranasal sinuses andmastoid air complexes are clear. Orbits are unremarkable. IMPRESSION: No acute intracranial abnormality. Jane Ritchie APRN, C.N.P., D.N.P., M.S.N. IMG CT PROCEDURES Final Result * (ABNORMAL) Venous Blood Gas and Electrolytes CG8+, POCT (08/29/2024 11:10 AM CDT) Pathologist [facility] Sample Site, POCT Venstick 08/29/2024 11:20 AM CDT PCLX Comment: ----ADDITIONAL INFORMATION---- Performed at the Point of Care pH, Venous, POCT, B 7.39 7.32 - 7.43 08/29/2024 11:20 AM CDT PCSM Comment: ----ADDITIONAL INFORMATION---- Performed at the Point of Care pCO2, Venous, POCT, B 36(L) 41 - 51 mm Hg 08/29/2024 11:20 AM CDT PCSM Comment: ----ADDITIONAL INFORMATION---- Performed at the Point of Care pO2, Venous, POCT, B 25 Not Applicable mm Hg 08/29/2024 11:20 AM CDT PCSM Comment: ----ADDITIONAL INFORMATION---- Performed at the Point of Care Base Excess, Venous, POCT, B -3 Not Applicable mmol/L 08/29/2024 11:20 AM CDT PCSM Comment: ----ADDITIONAL INFORMATION---- Performed at the Point of Care HCO3, Venous, POCT, B 22 Not Applicable mmol/L 08/29/2024 11:20 AM CDT PCSM Comment: ----ADDITIONAL INFORMATION---- Performed at the Point of Care Sodium, POCT, B 132(L) 135 - 145 mmol/L 08/29/2024 11:20 AM CDT PCLX Comment: ----ADDITIONAL INFORMATION---- Performed at the Point of Care Potassium, POCT, B 4.1 3.6 - 5.2 mmol/L 08/29/2024 11:20 AM CDT PCLX Comment: ----ADDITIONAL INFORMATION---- Performed at the Point of Care Calcium, Ionized, POCT, B 5.40(H) 4.65 - 5.30 mg/dL 08/29/2024 11:20 AM CDT PCLX Comment: ----ADDITIONAL INFORMATION---- Performed at the Point of Care Glucose, POCT, B 168(H) 70 - 140 mg/dL 08/29/2024 11:20 AM CDT PCLX Comment: ----ADDITIONAL INFORMATION---- Performed at the Point of Care Hematocrit, POCT, B 41.0 38.3 - 48.6 % 08/29/2024 11:20 AM CDT PCLX Comment: ----ADDITIONAL INFORMATION---- Performed at the Point of Care Blood (Blood, Venous) 08/29/2024 11:10 AM CDT 08/29/2024 11:10 AM CDT Jane Ritchie APRN, C.N.P. , D.N.P., M.S.N. LAB POCT ORDERABLES - DEVICE Final Result Performing Organization Address [facility] Co de Phone Number POC [facility] [address] [place] [address], [facility] PCLX [facility] POC [address] [place] [address] PCSM [facility] POC [address] [place] [address] * (ABNORMAL) Beta-Hydroxybutyrate (08/29/2024 11:08 AM CDT) Beta-Hydroxybut yrate, S 0.5(H) <0.4 mmol/L 08/29/2024 12:24 PM CDT DTL Blood (Blood, Venous) 08/29/2024 11:08 AM CDT 08/29/2024 11:50 AM CDT Jane Ritchie APRN, C.N.P., D.N.P., M.S.N. LAB BLOOD ADD-ON Final Result Performing Organization Address [facility] Co de Phone Number [facility] [address] [facility] [address] [place] [address] * (ABNORMAL) Lactate for Sepsis with Reflex (08/29/2024 11:08 AM CDT) Lactate, P 3.9(H) 0.5 - 2.2 mmol/L 08/29/2024 11:29 AM CDT STMA Blood (Blood, Venous) 08/29/2024 11:08 AM CDT 08/29/2024 11:17 AM CDT Jane Ritchie APRN, C.N.P., D.N.P., M.S.N. LAB BLOOD NON ADD-ON Final Result Performing Organization Address City/[facility]/ZIP Co de Phone Number [facility] [address] STMA [facility] 200 [place] [address] * Ammonia (08/29/2024 11:08 AM CDT) Pathologist [facility] Ammonia, P 16 <=30 mcmol/L 08/29/2024 11:50 AM CDT DTL Blood (Blood, Venous) 08/29/2024 11:08 AM CDT 08/29/2024 11:22 AM CDT Jane Ritchie APRN, C.N.P., D.N.P., M.S.N. LAB BLOOD NON ADD-ON Final Result Performing Organization Address City/[facility]/ZIP Co de Phone Number [facility] [address] [place] [address] * (ABNORMAL) Lipase (08/29/2024 11:08 AM CDT) Pathologist [facility] Lipase, S 94(H) 13 - 60 U/L 08/29/2024 12:24 PM CDT DTL Blood (Blood, Venous) 08/29/2024 11:08 AM CDT 08/29/2024 11:50 AM CDT Jane Ritchie APRN, C.N.P., D.N.P., M.S.N. LAB BLOOD ADD-ON Final Result [facility] [address] [place] [address] * (ABNORMAL) Hepatic Function Panel (08/29/2024 11:08 AM CDT) Bilirubin, Total, S 1.2 0.0 - 1.2 mg/dL 08/29/2024 12:24 PM CDT DTL Bilirubin, Direct, S 0.6(H) 0.0 - 0.3 mg/dL 08/29/2024 12:24 PM CDT DTL Aspartate Aminotransferase (AST), S 43 8 - 48 U/L 08/29/2024 12:24 PM CDT DTL Alanine Aminotransferase (ALT), S 42 7 - 55 U/L 08/29/2024 12:24 PM CDT DTL Alkaline Phosphatase, S 271(H) 40 - 129 U/L 08/29/2024 12:24 PM CDT DTL Albumin, S 3.7 3.5 - 5.0 g/dL 08/29/2024 12:24 PM CDT DTL Protein, Total, S 8.5(H) 6.3 - 7.9 g/dL 08/29/2024 12:24 PM CDT DTL Blood (Blood, Venous) 08/29/2024 11:08 AM CDT 08/29/2024 11:50 AM CDT Jane Ritchie APRN, C.N.P., D.N.P., M.S.N. LAB BLOOD ADD-ON Final Result [facility] [address] [place] [address], [facility] [address] [place] [address] * (ABNORMAL) CBC with Differential, Blood (08/29/2024 11:08 AM CDT) Pathologist [facility] Hemoglobin 13.7 13.2 - 16.6 g/dL 08/29/2024 11:22 AM CDT STMA Hematocrit 39.1 38.3 - 48.6 % 08/29/2024 11:22 AM CDT STMA Erythrocytes 4.07(L) 4.35 - 5.65 x10(12)/L 08/29/2024 11:22 AM CDT STMA MCV 96.1 78.2 - 97.9 fL 08/29/2024 11:22 AM CDT STMA RBC Distrib Width 14.2 11.8 - 14.5 % 08/29/2024 11:22 AM CDT STMA Platelet Count 59(L) 135 - 317 x10(9)/L 08/29/2024 11:22 AM CDT STMA Leukocytes 4.1 3.4 - 9.6 x10(9)/L 08/29/2024 11:22 AM CDT STMA Neutrophils 3.38 1.56 - 6.45 x10(9)/L 08/29/2024 11:22 AM CDT DHPM Lymphocytes 0.36(L) 0.95 - 3.07 x10(9)/L 08/29/2024 11:22 AM CDT STMA Monocytes 0.30 0.26 - 0.81 x10(9)/L 08/29/2024 11:22 AM CDT STMA Eosinophils 0.08 0.03 - 0.48 x10(9)/L 08/29/2024 11:22 AM CDT STMA Basophils <0.03 0.01 - 0.08 x10(9)/L 08/29/2024 11:22 AM CDT STMA Blood (Blood, Venous) 08/29/2024 11:08 AM CDT 08/29/2024 11:17 AM CDT us Jane Ritchie APRN, C.N.P., D.N.P., M.S.N. LAB BLOOD ADD-ON Final Result [facility] [address] [place] [address], [facility] STMA [facility] [address] [place] [address] [facility] [address] [place] [address] * (ABNORMAL) Basic Metabolic Panel (08/29/2024 11:08 AM CDT) Potassium, P 4.2 3.6 - 5.2 mmol/L 08/29/2024 11:33 AM CDT STMA Sodium, P 129(L) 135 - 145 mmol/L 08/29/2024 11:33 AM CDT STMA Chloride, P 96(L) 98 - 107 mmol/L 08/29/2024 11:33 AM CDT STMA Bicarbonate, P 19(L) 22 - 29 mmol/L 08/29/2024 11:33 AM CDT STMA Anion Gap, P 14 7 - 15 08/29/2024 11:33 AM CDT STMA BUN (Blood Urea Nitrogen), P 27(H) 8 - 24 mg/dL 08/29/2024 11:33 AM CDT STMA Creatinine 1.73(H) 0.74 - 1.35 mg/dL 08/29/2024 11:33 AM CDT STMA Estimated GFR (eGFR) 41(L) >=60 mL/min/BSA 08/29/2024 11:33 AM CDT STMA Comment: Estimated GFR calculated using the 2020 CKD_EPI creatinine equation. Calcium, Total, P 10.6(H) 8.8 - 10.2 mg/dL 08/29/2024 11:33 AM CDT STMA Glucose, P 175(H) 70 - 140 mg/dL 08/29/2024 11:33 AM CDT STMA Blood (Blood, Venous) 08/29/2024 11:08 AM CDT 08/29/2024 11:17 AM CDT Jane Ritchie APRN, C.N.P., D.N.P., M.S.N. LAB BLOOD ADD-ON Final Result [facility] [address] [place] [address] * (ABNORMAL) Dipstick, POCT, Urine (08/29/2024 11:01 AM CDT) Glucose, POCT, U >=1000(A) Negative mg/dL 08/29/2024 11:02 AM CDT PCED Ketone, POCT, U Negative Negative mg/dL 08/29/2024 11:02 AM CDT PCED Specific [place], POCT, U 1.010 1.005 - 1.030 08/29/2024 11:02 AM CDT PCED Blood, POCT, U Trace(A) Negative 08/29/2024 11:02 AM CDT PCED pH, POCT, Urine 6.0 5.0 - 8.0 08/29/2024 11:02 AM CDT PCED Protein, POCT, U 30(A) Negative mg/dL 08/29/2024 11:02 AM CDT PCED Nitrites, POCT, U Negative Negative 08/29/2024 11:02 AM CDT PCED Leukocytes, POCT, U Negative Negative 08/29/2024 11:02 AM CDT PCED Urine 08/29/2024 11:0 1 AM CDT 08/29/2024 11:02 AM CDT us Unknown Provider LAB POCT ORDERABLES - DEVICE Fi nal Result Performing Organization Address City/[facility]/ZIP Co de Phone Number POC [facility] [address] [place] [address], [facility] PCED [facility] POC [address] [place] [address] * (ABNORMAL) Dipstick, Urine (08/29/2024 10:55 AM CDT) Hemoglobin, QL, U Trace(A) Negative 08/29/2024 11:19 AM CDT DTL Leukocyte Esterase, U Negative Negative 08/29/2024 11:19 AM CDT DTL Nitrite, U Negative Negative 08/29/2024 11:19 AM CDT DTL Ketone, U Negative Negative mg/dL 08/29/2024 11:19 AM CDT DTL Glucose, U 300(A) Negative mg/dL 08/29/2024 11:19 AM CDT DTL Urine 08/29/2024 10:5 5 AM CDT 08/29/2024 11:14 AM CDT us Jane Ritchie APRN, C.N.P., D.N.P., M.S.N. LAB URINE ORDERABLES Final Result Performing Organization Address City/[facility]/ZIP Co de Phone Number [facility] [address] [place], [place] [id number] [place] [address] [address] [place] [address] * Osmolality, Urine (08/29/2024 10:55 AM CDT) Osmolality, U 416 150 - 1150 mOsm/kg 08/29/2024 11:40 AM CDT DTL Urine 08/29/2024 10:5 5 AM CDT 08/29/2024 11:14 AM CDT Jane Ritchie APRN, Mendy.N.P., D.N.P., M.S.N. LAB URINE ORDERABLES Final Result [facility] [address] [place], [place] [id number] [place] [address] [address] [place] [address] * pH, Random, Urine (08/29/2024 10:55 AM CDT) [facility] pH, Random, U 6.0 4.5 - 8.0 08/29/2024 11:40 AM CDT DT Urine 08/29/2024 10:5 5 AM CDT 08/29/2024 11:14 AM CDT Jane Ritchie APRN, C.N.P., D.N.P., M.S.N. LAB URINE ORDERABLES Final Result [facility] [address] [place], [place] [phone] [place] [address] [address] [place] [address] * (ABNORMAL) Microscopic Manual (08/29/2024 10:55 AM CDT) Pathologist [facility] Microscopy Abnormal 08/29/2024 11:54 AM CDT DTL RBC <3 <3 /hpf 08/29/2024 11:54 AM CDT DTL WBC 1-3 /hpf 08/29/2024 11:54 AM CDT DTL Comment: ----REFERENCE VALUE---- <4 (Males) <11 (Females) Casts, Hyaline Occas /lpf 08/29/2024 11:54 AM CDT DTL Casts, Granular Occas(A) /lpf 11:54 AM CDT DTL Yeast Present(A) 08/29/2024 11:54 AM CDT DTL Urine 08/29/2024 10:5 5 AM CDT 08/29/2024 11:14 AM CDT Jane Ritchie APRN, Mendy.N.P., Misha.N.P., M.S.N. LAB URINE ORDERABLES Final Result Performing Organization Address [facility] Co de Phone Number [facility] [address] [place] [address] * Bacterial Culture, Aerobic + Susceptibility, Urine (08/29/2024 10:55 AM CDT) Urine Culture No growth after 1 day of incubation. 08/30/2024 7:22 AM CDT DTL Urine (Urine, Straight Catheter) 08/29/2024 10:55 AM CDT 08/29/2024 11:45 AM CDT Comment:Specimen Source Site : Urine Jane Ritchie APRN, C.N.P. , D.N.P., M.S.N. LAB MICROBIOLOGY - GENERAL ORDERABLES Final Result Performing Organization Address [facility]/ZIP Co de Phone Number [facility] [address] [place] [address] * (ABNORMAL) Urinalysis, with Microscopic: Urine, Straight Catheter (08/29/2024 10:55 AM CDT) Source Urine, Urine, Straight Catheter 08/29/2024 11:14 AM CDT DTL Color, U Yellow 08/29/2024 11:14 AM CDT DTL Clarity, U Clear 08/29/2024 11:14 AM CDT DTL Protein, U 24 <26 mg/dL 08/29/2024 12:24 PM CDT DTL Protein/Osmola lity 0.58(H) <0.42 ratio 08/29/2024 12:24 PM CDT DTL Predicted 24 HR Protein, U 558(H) <229 mg/24 h 08/29/2024 12:24 PM CDT DTL Predicted Range 177-1756 mg/24 h 08/29/2024 12:24 PM CDT DTL Comment Micro done on <5 mL 08/29/2024 11:48 AM CDT DTL Urine (Urine, Straight Catheter) 08/29/2024 10:55 AM CDT 08/29/2024 11:14 AM CDT Jane Ritchie APRN, C.N.P., D.N.P., M.S.N. LAB URINE ORDERABLES Final Result [facility] [address] [place] [address], [facility] [address] [place] [address] * ECG 12 Lead (08/29/2024 10:26 AM CDT) Ventricular Rate ECG/Min 71 BPM MUSE ID Interval 128 ms MUSE QRSD Interval 136 ms MUSE QT Interval 440 ms MUSE QTC Interval 478 ms MUSE P [place] 17 degrees MUSE R [place] -47 degrees MUSE T Wave [place] 14 degrees MUSE 08/29/2024 10:2 6 AM CDT 08/29/2024 10:31 AM CDT Impressions MUSE - 08/29/2024 10:31 AM CDT Sinus rhythm Right bundle branch block with secondary ST-T abnormalities Left anterior fascicular block Bifascicular block When compared with ECG of 02-Aug-2024 17:33, Premature atrial complexes are no longer present Bifascicular block is now present Reviewed by KLEBER Perez Narrative Procedure Note Ernst Larios M.D. - 08/29/2024 IMPRESSION: Sinus rhythm Right bundle branch block with secondary ST-T abnormalities Left anterior fascicular block Bifascicular block When compared with ECG of 02-Aug-2024 17:33, Premature atrial complexes are no longer present Bifascicular block is now present Reviewed by KLEBER Perez us Jane Ritchie APRN, C.N.P., D.N.P., M.S.N. ECG ORDERABLES Final Result MUSE NA documented in this encounter Visit Diagnoses Diagnosis Weakness General- Primary Weakness General Change Mental Status Encephalopathy Metabolic Thrombosis Deep Vein Personal History Unspecified Cirrhosis Of Liver (HCC) Thrombocytopenia Secondary Esophageal Varices Without Bleeding (HCC) Hypertension Portal (HCC) Hypertension Essential Primary Hyperlipidemia Hepatitis Autoimmune (HCC) Gastroesophageal Reflux Disease NOS Diabetes Mellitus Type 2 (HCC) Delirium Failure Renal Acute (Acute Kidney Injury) Hyperkalemia Hyponatremia documented in this encounter Admitting Diagnoses Diagnosis Weakness General Failure Renal Acute (Acute Kidney Injury) documented in this encounter Administered Medications Inactive Administered Medications - up to 3 most recent administrations Medication Order MAR Action Action Date Dose Rate Site D5W infusion 1-999 mL/hr, intravenous, As needed, Medications Incompatible with 0.9% NaCL, Starting on Thu08/29/24 at 1700, Infuse at the same rate as the piggyback until tubing clears or up to a volume of 20 mL pre and post infusion for medications incompatible with 0.9% NaCL. Use 50 mL bag then discard. Lactated Ringer's bolus 500 mL 500 mL, intravenous, at 500 mL/hr, Administer over 1 Hours, Once, On Thu08/29/24 at 1615, For 1 dose New Bag 08/29/2024 5:40 PM CDT 500 mL 500 mL/hr lactulose solution 10 g 10 g, oral, 2 times daily, First dose on Thu08/29/24 at 1615 Given 08/30/2024 8:17 AM CDT 10 g Given 08/29/2024 5:05 PM CDT 10 g multivitamin/mineral- tablet 1 tablet 1 tablet, oral, Daily, First dose on Thu08/30/24 at 0900 Given 08/30/2024 8:17 AM CDT 1 tablet NaCl 0.9 % bolus 250 mL 250 mL, intravenous, at 250 mL/hr, Administer over 1 Hours, Once, On Thu08/29/24 at 1440, For 1 dose New Bag 08/29/2024 2:51 PM CDT 250 mL 250 mL/hr NaCl 0.9 % bolus 500 mL 500 mL, intravenous, at 500 mL/hr, Administer over 1 Hours, Once, On Thu08/29/24 at 1134, For 1 dose New Bag 08/29/2024 12:03 PM CDT 500 mL 500 mL/hr NaCl 0.9% infusion 1-999 mL/hr, intravenous, As needed, Between Consecutive Piggyback Medications, Starting on Thu08/29/24 at 1700, For 7 days, Infuse at the same rate as the piggyback until tubing clears or up to a volume of 20 mL. Select for IV medication administration when no maintenance IV available or when IV medications are not compatible with maintenance fluid. NaCl 0.9% infusion 1-999 mL/hr, intravenous, As needed, Post Medications (Hazardous/Low Fluid Volume), Starting on Thu08/29/24 at 1700, For 7 days, Infuse at the same rate as the medication until tubing cleared of medication, then discard. pantoprazole DR tablet 40 mg (Protonix) 40 mg, oral, Daily before morning meal, First dose on Thu08/30/24 at 0700, pantoprazole 40 mg oral daily was interchanged for omeprazole 20 or 40 mg oral daily Swallow whole. Do NOT crush, chew, or split tablet. Given 08/30/2024 6:48 AM CDT 40 mg rosuvastatin tablet 20 mg (Crestor) 20 mg, oral, Daily, First dose on Thu08/30/24 at 0900 Given 08/30/2024 8:17 AM CDT 20 mg sodium chloride 0.9 % injection 10 mL 10 mL, intravenous, As needed, line care, Peripheral Intravenous Catheter and Rapid Infusion Catheter, Starting on Thu08/29/24 at 1700, Prior to blood sampling, post blood transfusion or post blood sampling. sodium chloride 0.9 % injection 3 mL 3 mL, intravenous, As needed, line care, Peripheral Intravenous Catheter and Rapid Infusion Catheter, Starting on Thu08/29/24 at 1700, Prior to and following infusion and between multiple consecutive infusions. Given 08/29/2024 5:40 PM CDT 3 mL sodium chloride 0.9 % injection 3 mL 3 mL, intravenous, Every 24 hours scheduled, First dose on Thu08/30/24 at 0900, Peripheral Intravenous Catheter and Rapid Infusion Catheter: When no infusion to maintain patency. Given 08/30/2024 8:17 AM CDT 3 mL sodium polystyrene sulfonate powder 15 g (Kayexalate) 15 g, oral, Once, On Thu08/29/24 at 1615, For 1 dose, Administer other meds at least 3 hours before or 3 hours after sodium polystyrene sulfonate, due to the potential to bind to orally administered drugs. If Pharmacy dispenses powder, mix each 15 gm dose with 55 mL water to a concentration of 15 gm/60 mL. Do not store reconstituted suspension for more than 24 hours. Given 08/29/2024 5:59 PM CDT 15 g documented in this encounter Active and Recently Administered Medications Times are shown in CDT. Scheduled Medication Order 08/28/2024 08/29/2024 08/30/2024 Lactated Ringer's bolus 500 mL (COMPLETED) 500 mL, intravenous, at 500 mL/hr, Administer over 1 Hours, Once, On Thu08/29/24 at 1615, For 1 dose 1740 (New Bag - Provider: Rossy Aj., R.N., C.M.S.R.N.) lactulose solution 10 g 10 g, oral, 2 times daily, First dose on Thu08/29/24 at 1615 1705 (Given - Provider: Dominique AjSMarcusN., R.N., C.M.S.R.N.) 0817 (Given - Provider: Tulio Hedrick R.N.) multivitamin/mineral-prenat al tablet 1 tablet 1 tablet, oral, Daily, First dose on Thu08/30/24 at 0900 0817 (Given - Provid er: Omotoyosi O Banjo, R.N.) NaCl 0.9 % bolus 250 mL (COMPLETED) 250 mL, intravenous, at 250 mL/hr, Administer over 1 Hours, Once, On Thu08/29/24 at 1440, For 1 dose 1451 (New Bag - Provider: Keli Israel R.N.)1643 (Stopped - Provider: Bebe Aj.S.N., R.N., Mendy.Bebe.S.R.N.) NaCl 0.9 % bolus 500 mL (COMPLETED) 500 mL, intravenous, at 500 mL/hr, Administer over 1 Hours, Once, On Thu08/29/24 at 1134, For 1 dose 1203 (New Bag - Provider: Keli Israel R.N.)1354 (Stopped - Provider: Keli Israel R.N.) pantoprazole DR tablet 40 mg (Protonix) 40 mg, oral, Daily before morning meal, First dose on Thu08/30/24 at 0700, pantoprazole 40 mg oral daily was interchanged for omeprazole 20 or 40 mg oral daily Swallow whole. Do NOT crush, chew, or split tablet. 0648 (Given - Provid er: Lesly Pan R.N.) rosuvastatin tablet 20 mg (Crestor) 20 mg, oral, Daily, First dose on Thu08/30/24 at 0900 0817 (Given - Provid er: Tulio Hedrick R.N.) sodium chloride 0.9 % injection 3 mL 3 mL, intravenous, Every 24 hours scheduled, First dose on Thu08/30/24 at 0900, Peripheral Intravenous Catheter and Rapid Infusion Catheter: When no infusion to maintain patency. 0817 (Given - Provid er: Tulio Hedrick R.N.) sodium polystyrene sulfonate powder 15 g (Kayexalate) (COMPLETED) 15 g, oral, Once, On Thu08/29/24 at 1615, For 1 dose, Administer other meds at least 3 hours before or 3 hours after sodium polystyrene sulfonate, due to the potential to bind to orally administered drugs. If Pharmacy dispenses powder, mix each 15 gm dose with 55 mL water to a concentration of 15 gm/60 mL. Do not store reconstituted suspension for more than 24 hours. 175 (Given - Provider: Rossy Aj., R.N., C.M.S.R.N.) PRN Medication Order 08/28/2024 08/29/2024 08/30/2024 calcium carbonate chewable tablet 400 mg of calcium (Tums) 400 mg of calcium, oral, Every 2 hour PRN, heartburn, indigestion, Starting on Thu08/29/24 at 1614, Doses listed are in mg of elemental calcium. Take with food. 500 mg calcium carbonate contains 200 mg of elemental calcium. D5W infusion 1-999 mL/hr, intravenous, As needed, Medications Incompatible with 0.9% NaCL, Starting on Thu08/29/24 at 1700, Infuse at the same rate as the piggyback until tubing clears or up to a volume of 20 mL pre and post infusion for medications incompatible with 0.9% NaCL. Use 50 mL bag then discard. NaCl 0.9% infusion 1-999 mL/hr, intravenous, As needed, Between Consecutive Piggyback Medications, Starting on Thu08/29/24 at 1700, For 7 days, Infuse at the same rate as the piggyback until tubing clears or up to a volume of 20 mL. Select for IV medication administration when no maintenance IV available or when IV medications are not compatible with maintenance fluid. NaCl 0.9% infusion 1-999 mL/hr, intravenous, As needed, Post Medications (Hazardous/Low Fluid Volume), Starting on Thu08/29/24 at 1700, For 7 days, Infuse at the same rate as the medication until tubing cleared of medication, then discard. sodium chloride 0.9 % injection 10 mL 10 mL, intravenous, As needed, line care, Peripheral Intravenous Catheter and Rapid Infusion Catheter, Starting on Thu08/29/24 at 1700, Prior to blood sampling, post blood transfusion or post blood sampling. sodium chloride 0.9 % injection 3 mL 3 mL, intravenous, As needed, line care, Peripheral Intravenous Catheter and Rapid Infusion Catheter, Starting on Thu08/29/24 at 1700, Prior to and following infusion and between multiple consecutive infusions. 1740 (Given - Provider: Rossy Aj., R.N., C.M.S.R.N.) documented in this encounter Care Teams [employer] Supervisor Relationship Specialty Start Date End Date Elsewhere, Pcp PCP - General Internal Medicine 08/19/21 documented as of this encounter
[2024-09-02] VITALS (10 sets, daily range): BP systolic 98–121; BP diastolic 57–76; PULSE 66–98; RESP 16–18; TEMP 36.4–37.3; O2SAT 97–99; BMI 21.3
--- OUTSIDE RECORDS SUMMARY | 2024-09-02 03:27 | XMS_ITS | Encounter Summary ---
Author Organization [facility] Address [address] [place] [address] Care Team Providers Care Nurse Quality Name Role Phone Elsewhere, Pcp Primary Care Provider Unavailabl e Reason for Visit * Reason Onset Date Comments Remote Patient Monitoring 08/08/2024 Direct Connect Encounter Details Date Type Department Care Team (Late st Contact Info) Description 08/08/2024 Remote Monitoring Remote Patient Monitoring [facility] [address] [place] [phone] Melissa Rose Remote Patient Monitoring ( Direct Connect) Social History Tobacco Use Types Packs/Day Years Used Date Smoking Tobacco: Never Smokeless Tobacco: Never Alcohol Use Standard Drinks/Week Comments Not Currently 0 (1 standard drink = 0.6 oz pur e alcohol) Don t drink [facility] Utilities Answer Date Recorded In the past 12 months has [employer], gas, oil, or water [employer] threatened to shut off services in your [...] often do you attend chur ch or christian services? More than 4 times per year 04/27/2022 Do you belong to any clubs o r organizations such as jainism groups, unions, fraternal or athletic groups, or [...] and heating? Not hard at all 04/27/2022 [facility] - Occupational Stress Questionnaire Answer Date [...] living situation today? I have a [facility] place to live 08/03/2024 Education Answer Date Recorded What is the highest level of school you have completed or the highest degree you have received? Bachelor's degree (e.g., BA, AB, BS) 11/11/2020 Sex and Gender Information Value Date Recorded Sex Assigned at Male 02/12/2021 6:18 PM CERTIFIED REGISTERED DENTAL ASSISTANT Legal Sex Male 9:16 PM CERTIFIED REGISTERED DENTAL ASSISTANT Gender Identity Male 11/11/2020 11:30 AM CDT Sexual Orientation Straight 11/11/2020 11 :30 AM CDT documented as of this encounter Plan of Treatment Upcoming Encounters Date Type Department Care Team (Late st Contact Info) Description 09/06/2024 1:00 PM CDT Appointment Department of Radiology, [place], [place] [address] [place] [address] Marv Myrick M.D., M.P.H. [address] [place] [phone] 09/07/2024 11:10 AM CDT Appointment Department of Laboratory Medicine and Pathology, [facility] [place], [place] [address] [place] [phone] Marv Myrick M.D., M.P.H. [address] [place] [address] 09/07/2024 1:30 PM CDT Office Visit Division of Gastroenterology in [place], [place] [address] [place] [address] Marv Myrick M.D., M.P.H. [address] [place] [address] documented as of this encounter Visit Diagnoses Not on filedocumented in this encounter Care Teams Nurse Quality Relationship Specialty Start Date End Date Elsewhere, Pcp PCP - General Internal Medicine 08/19/21 documented as of this encounter
--- OUTSIDE RECORDS SUMMARY | 2024-09-02 03:28 | XMS_ITS | Clinical Summary ---
Author Organization [facility] Address [address] [place] [address] Care Team Providers Care Consumer Science Teacher Name Role Phone Elsewhere, Pcp Primary Care Provider Unavailabl e Source Comments Patient records contain information from all sites at [facility]. For routine questions regarding patient records, call [phone] during business hours, M-F 8:00 AM - 5:00 PM Central Time. Record requests for emergency care only can be directed to [phone] at any time[address] Allergies Active Allergy Reactions Criticality Noted [...] preop while on Lisinopril Kidney Failure Medications * This document contains information received from the source organization and may not represent a complete record from that organization. cholecalcifero l (VITAMIN D3) 125 mcg (5,000 Unit) tablet Take 125 mcg by mouth daily. Active metFORMIN XR (GLUCOPHAGE-XR ) 500 mg 24 hr tablet Take 500 mg by mouth 2 (two) times a day. Active ferrous gluconate (FERGON) 324 mg (38 mg iron) tablet Take 324 mg by mouth daily. Active omeprazole (PriLOSEC) [address] capsule Take 20 mg by mouth every morning before breakfast. 07/21/19 Active rosuvastatin (CRESTOR) 20 mg tablet Take 20 mg by mouth daily. 05/15/19 Active empagliflozin (JARDIANCE) 10 mg tablet Take 1 tablet by mouth daily. 12/06/19 Active multivitamin-i drx-CG-Gg-mine rals 400 mcg (folic acid) tablet Take 1 tablet by mouth daily. 30 tablet 08/07/19 Active furosemide (Lasix) 20 mg tablet Take 1 tablet (20 mg total) by mouth daily. 08/31/19 25 Active sennosides-doc usate sodium (Senokot-S) 8.6-50 mg per tablet Take 2 tablets by mouth as needed for constipation. 08/31/19 Active spironolactone (Aldactone) 100 mg tablet Take 1 tablet (100 mg total) by mouth daily. 08/31/19 Active furosemide (LASIX) 20 mg tablet Take 40 mg by mouth 2 (two) times a day. 07/06/19 21 025 Discontinued sennosides-doc usate sodium (SENOKOT-S) 8.6-50 mg per tablet Take 2 tablets by mouth 2 (two) times a day. 30 tablet 08/28/19 24 025 Discontinued spironolactone (Aldactone) 100 mg tablet Take 1 tablet (100 mg total) by mouth daily. 90 tablet 3 06/03/19 25 025 Discontinued furosemide (Lasix) 20 mg tablet Take 2 tablets (40 mg total) by mouth daily. 08/06/19 25 025 Discontinued spironolactone (Aldactone) 100 mg tablet Take 0.5 tablets (50 mg total) by mouth daily. 08/06/19 25 025 Discontinued ciprofloxacin (Cipro) 500 mg tabletIndicati ons:Intra-abdo tae infection, community acquired Take 1 tablet (500 mg total) by mouth 2 (two) times a day before morning and evening meals for 2 days Indications: Intra-abdomin al infection, community acquired. 4 tablet 5 4:24 PM CDT 08/06/19 25 025 furosemide (Lasix) 20 mg tablet Take 1 tablet (20 mg total) by mouth daily. 08/06/19 25 025 Discontinued(Du plicate order) spironolactone (Aldactone) 100 mg tablet Take 1 tablet (100 mg total) by mouth daily. 08/06/19 25 025 Discontinued furosemide (Lasix) 20 mg tablet Take 1 tablet (20 mg total) by mouth 2 (two) times a day. 180 tablet 3 5 4:25 PM CDT 08/25/19 25 025 Discontinued spironolactone (Aldactone) 100 mg tablet TAKE 1 TABLET (100 MG TOTAL) BY MOUTH 2 (TWO) TIMES A DAY. 180 tablet 2 5 4:26 PM CDT 08/25/19 25 025 Discontinued spironolactone (Aldactone) 100 mg tablet Take 1 tablet (100 mg total) by mouth daily. 180 tablet 2 08/31/19 025 Discontinued Active Problems Problem Noted Date Diagnosed Date Failure Renal Acute (Acute Kidney Injury) 2024 Hyperkalemia 08/30/2024 Hyponatremia 08/30/2024 Weakness General 08/29/2024 Elevated Troponin 08/02/2024 Acidosis Lactic 08/02/2024 Colitis 09/10/2023 Abdominal Pain 09/10/2023 Hernia Inguinal [...] Problem Noted Date Diagnosed Date Resolved Date Delirium 08/30/2024 08/30/2024 Illness Febrile 08/02/2024 08/02/2024 Pneumonia 08/25/2023 08/26/2023 Thrombosis Deep Vein Acute Femoral Right 05/12/2023 05/12/2023 Encounters * This document contains information received from the source organization and may not represent a complete record from that organization. Date Type Department Care Team Description 08/30/2024 Remote Monitoring Remote Patient Monitoring [facility] [address] [place] [address] Melissa Rose Remote Patient Monitoring ( Direct Connect) 08/29/2024 10:11 AM CDT - 08/30/2024 12:06 PM CDT Hospital Encounter [facility], [facility], Third Floor [address] [place] [address] Jane Ritchie APRN, C.N.P., D.N.P., M.S.N. Dominique White M.D. Weakness General (Primary Dx); Change Mental Status; Encephalopathy Metabolic Discharge Disposition: Home or Self Care 08/23/2024 Refill Division of Gastroenterology in [place], [place] [address] [place] [address] Marv Myrick M.D., M.P.H. Med Refill 08/22/2024 Results Follow-Up Division of Gastroenterology in [place], [place] [address] [place] [address] Marv Myrick M.D., M.P.H. Basic Metabolic Panel 08/17/2024 1:35 PM CDT - 08/17/2024 11:59 PM CDT Hospital Encounter Department of Laboratory Medicine and Pathology, [facility], in [place], [place] [address] [place] [address] Marv Myrick M.D., M.P.H. Ascites Discharge Disposition: Home or Self Care 08/17/2024 1:00 PM CDT Office Visit Division of Gastroenterology in [place], [place] [address] [place] [address] Marv Myrick M.D., M.P.H. Ascites (Primary Dx) 08/11/2024 Clinical Communication Division of Gastroenterology in [place], [place] [address] [place] [phone] Marv Myrick M.D., M.P.H. 08/10/2024 Clinical Communication Division of Gastroenterology in [place], [place] [address] [place] [phone] Yanna Zarate M.B.B.S. 08/08/2024 Remote Monitoring Remote Patient Monitoring [facility] [address] [place] [address] Melissa Rose Remote Patient Monitoring ( Direct Connect) 08/02/2024 5:00 PM CDT - 08/05/2024 4:30 PM CDT Hospital Encounter [facility], [facility], Eighth Floor [address] [place] [phone] Malik Oswald M.D. Issac Irwin M.D., Ph.D. Jose Robertson APRN, C.N.P., D.N.P. Illness Febrile (Primary Dx); Acidosis Lactic; Sepsis [...] (HCC) Discharge Disposition: Home or Self Care 07/22/2024 10:32 AM CDT - 07/22/2024 11:59 PM CDT Hospital Encounter Department of Radiology, [facility], in [place], [place] [address] [place] [phone] Marv Myrick M.D., M.P.H. Ascites Chronic Discharge Disposition: Home or Self Care 07/14/2024 Orders Only Division of Gastroenterology in [place], [place] [address] [place] [phone] Marv Myrick M.D., M.P.H. Ascites Chronic (Primary Dx) 07/08/2024 11:25 AM CDT - 07/08/2024 11:59 PM CDT Hospital Encounter Department of Laboratory Medicine in [place], [place] [address] [place] [address] Marv Myrick M.D., M.P.H. Ascites Chronic Discharge Disposition: Home or Self Care 06/22/2024 9:40 AM CDT - 06/22/2024 11:59 PM CDT Hospital Encounter Department of Laboratory Medicine in [place], [place] [address] [place] [address] Marv Myrick M.D., M.P.H. Ascites Chronic Discharge Disposition: Home or Self Care 06/08/2024 Results Follow-Up Division of Gastroenterology in [place], [place] [address] [place] [phone] Marv Myrick M.D., M.P.H. Basic Metabolic Panel 06/07/2024 9:42 AM CDT - 06/07/2024 11:59 PM CDT Hospital Encounter Department of Laboratory Medicine and Pathology, [facility] in [place], [place] [address] [place] [phone] Marv Myrick M.D., M.P.H. Cirrhosis Nonalcoholic (HCC) Discharge Disposition: Home or Self Care 06/02/2024 3:50 PM CDT Virtual Visit Division of Gastroenterology in [place], [place] [address] [place] [phone] Marv Myrick M.D., M.P.H. Cirrhosis Nonalcoholic (HCC) (Primary Dx) 06/02/2024 Orders Only Division of Gastroenterology in [place], [place] [address] [place] [phone] Marv Myrick M.D., M.P.H. Cirrhosis Nonalcoholic (HCC) (Primary Dx) from Last 3 Months Immunizations Immunization Administration Dates Next Due Influenza Split 12/22/2007 [...] oz pur e alcohol) Don t drink [facility] Utilities Answer Date Recorded In the past 12 months has e [employer], gas, oil, or water [employer] threatened to shut off services in your [...] often do you attend chur ch or anabaptist services? More than 4 times per year [...] and heating? Not hard at all 04/27/2022 [facility] [place] [facility] - Occupational Stress [...] your living situation today? I [facility] a [facility] place to live 08/29/2024 Education Answer Date Recorded What is the highest level of school you have completed or the highest degree you have received? Bachelor's degree (e.g., BA, AB, BS) 11/11/2020 Sex and Gender Information Value Date Recorded Sex Assigned at Male 02/12/2021 6:18 PM [employer] Legal Sex Male 9:16 PM [employer] Gender Identity Male 11/11/2020 11:30 AM CDT [...] Mass Index 18.77 08/29/2024 5:40 PM CDT Plan of Treatment Upcoming Encounters Date Type Department Care Team (Late st Contact Info) Description 09/06/2024 1:00 PM CDT Appointment Department of Radiology, [place], [place] [address] [place] [address] Marv Myrick M.D., M.P.H. [address] [place] [phone] 09/07/2024 11:10 AM CDT Appointment Department of Laboratory Medicine and Pathology, [place], [place] [address] [place] [address] Marv Myrick M.D., M.P.H. [address] [place] [phone] 09/07/2024 1:30 PM CDT Office Visit Division of Gastroenterology in [place], [place] [address] [place] [phone] Marv Myrick M.D., M.P.H. [address] [place] [phone] Health Maintenance Due Date Last Done Comments CT Colonography 1948 Cologuard 1948 Diabetic Office Visit with Foot Exam 1948 FIT 1950 Hepatitis C Screening 1950 Urine Albumin 1948 Hepatitis A Vaccines (1 of 2 - Risk 2-dose series) 09/26/1967 Zoster Vaccines (2 of 3) 12/02/2012 10/07/2012 Dilated Eye Exam 01/20/2017 01/21/2016, 01/21/2016 DTaP,Tdap,and Td Vaccines (3 - Td or Tdap) 09/01/2021 09/02/2011, 12/01/2007 RSV vaccine - (32-36 weeks) or 60+ years (1 - 1-dose 75+ series) 09/26/2023 COVID-19 Vaccine ( season) 2023 09/18/2021, 03/20/2021, 06/22/2020, Additional history exists Influenza Vaccine (#1) 2023 , 12/24/2020, 01/18/2020, Additional history exists Depression Screening (Annual PHQ-2) 03/23/2024 Fall Risk Screen (Annual) 03/23/2024 Office Visit for Blood Pressure Check / Re-check 05/12/2024 05/12/2023 Abdominal Ultrasound 02/02/2025 08/02/2024, 05/02/2024, 11/04/2023, Additional history exists Hemoglobin A1C 02/03/2025 08/03/2024, 08/21, 05/12/2023, Additional history exists Creatinine Level (Kidney Function Test) 08/30/2025 08/30/2024, 08/29/2024, 08/29/2024, Additional history exists Potassium Level 08/30/2025 08/30/2024, 06/0 11/2024, 08/29/2024, Additional history exists Sodium Level 08/30/2025 08/30/2024, 06/0 11/2024, 08/29/2024, Additional history exists Lipid (Cholesterol) Screening 05/12/2027 05/12/2022, 07/04/2020, 10/26/2017 Colonoscopy 09/15/2028 09/15/2018 Colorectal Cancer Screening 09/15/2028 Hepatitis B Vaccines Completed 05/22/1992, 12/20/1991, 11/22/1991 Pneumococcal vaccine (50+ years) Completed 09/29/2014, 09/28/2013 IPV Vaccines Aged Out No longer eligi ble based on patient's age to complete this topic Medical Devices Implanted Type Area Geophysical Laboratory Supervisor Device Identifier Shelf Expiration Date Model / Serial / Lot [facility] Endo 235 - [id number] Implanted:Qty: 1 on 02/12/2021 by Markie March M.D. at [facility] [employer] e.g. pins/screws /rods [employer] [id number] 09/01/2023 [id number] / / [id number] Description:Implanted in duo denum-polypectomy site. [facility] Endo 235 - [id number] Implanted:Qty: 1 on 02/12/2021 by Marike March M.D. at [facility] [employer] e.g. pins/screws /rods [employer] [id number] 09/01/2023 [id number] / / [id number] Description:Implanted in duo denum at polypectomy site. Hip Implant Hip Implant Hip Description:Right hip replac ement Lnr X3 Mary Kate 40 - [id number] Implanted:Qty: 1 on 05/13/2023 by Pete Rojas M.D. at [facility] Hip Implant Left: Hip Marta 02/15/2028 723-00-4 0E / / [id number] Shll Acet Trd Chl 52e - [id number] Implanted:Qty: 1 on 05/13/2023 by Pete Rojas M.D. at [facility] Hip Implant Left: Hip [place] 03/02/2028 702-04-5 2E / / [id number] A Kn Stm Blx -2.5 - [id number] Implanted:Qty: 1 on 05/13/2023 by Pete Rojas M.D. at [facility] Hip Implant Left: Hip Marta 03/16/2028 6519-T-0 25 / / [id number] Fem Hd Blx +0x40 - [id number] Implanted:Qty: 1 on 05/13/2023 by Pete Rojas M.D. at [facility] Hip Implant Left: Hip Marta 02/16/2028 6519-1-0 40 / / [id number] Hip Stm Ins Hofst Sz8 76w243 - [id number] Implanted:Qty: 1 on 05/13/2023 by Pete Rojas M.D. at [facility] Hip Implant Left: Hip Marta 01/07/2026 7000-660 8 / / [id number] Shoulder Implant Shoulder Implant Shoulder Description:Right shoulder s urgery, screws placed Procedures Procedure Name Priority Date/Time Associated Diagnosis Comments BASIC METABOLIC PANEL, S/P Timed 08/30/2024 8:27 AM CDT LACTATE, B/P Timed 08/29/2024 9:41 PM CDT BASIC METABOLIC PANEL, S/P Timed 08/29/2024 9:41 PM CDT BASIC METABOLIC PANEL, S/P STAT 08/29/2024 3:11 PM CDT LACTATE, B/P Timed 08/29/2024 2:12 PM CDT PROTHROMBIN TIME (PT), P Routine 08/29/2024 12:46 PM CDT BACTERIA / NEDA CULTURE, BLOOD STAT 08/29/2024 12:46 PM CDT DX CHEST AP OR PA AND LATERAL 2 VIEWS RAD - Semiurgent (Fast; most ED patients; some inpatients) 08/29/2024 11:[address] HEAD WITHOUT IV CONTRAST RAD - Semiurgent (Fast; most ED patients; some inpatients) 08/29/2024 11:19 AM CDT VBG & LYTES CG8+, POCT, B STAT 08/29/2024 11:10 AM CDT BETA-HYDROXYBUTYRATE , S STAT 08/29/2024 11:08 AM CDT LACTATE FOR SEPSIS WITH REFLEX STAT 08/29/2024 11:08 AM CDT AMMONIA STAT 08/29/2024 11:08 AM CDT LIPASE, S/P STAT 08/29/2024 11:08 AM CDT HEPATIC FUNCTION PANEL, S STAT 08/29/2024 11:08 AM CDT CBC WITH DIFFERENTIAL, B STAT 08/29/2024 11:08 AM CDT BASIC METABOLIC PANEL, S/P STAT 08/29/2024 11:08 AM CDT BACTERIA / NEDA CULTURE, BLOOD STAT 08/29/2024 11:08 AM CDT HC URINALYSIS AUTO WO MICRO Routine 08/29/2024 11:01 AM CDT DIPSTICK, U STAT 08/29/2024 10:55 AM CDT HC OSMOLALITY ASSAY URINE STAT 08/29/2024 10:55 AM CDT PH, RANDOM, U STAT 08/29/2024 10:55 AM CDT MICROSCOPIC MANUAL STAT 08/29/2024 10:55 AM CDT URINALYSIS WITH MICROSCOPIC STAT 08/29/2024 10:55 AM CDT BACTERIAL CULTURE, AEROBIC + SUSC, URINE STAT 08/29/2024 10:55 AM CDT ECG STAT 08/29/2024 10:26 AM CDT BASIC METABOLIC PANEL, S/P Routine 08/17/2024 1:50 PM CDT Ascites US ABDOMEN LIMITED RAD - Routine (most inpatients and all outpatients) 08/05/2024 3:51 PM CDT GLUCOSE POCT, B Routine 08/05/2024 12:50 PM CDT GLUCOSE POCT, B Routine 08/05/2024 7:44 AM CDT CBC NO CALL BACK, REFLEX T/S Routine 08/05/2024 4:49 AM CDT MAGNESIUM, S Routine 08/05/2024 4:49 AM CDT HEPATIC FUNCTION PANEL, S Routine 08/05/2024 4:49 AM CDT RENAL FUNCTION PANEL, S Routine 08/05/2024 4:49 AM CDT GLUCOSE POCT, B Routine 08/04/2024 8:55 PM CDT GLUCOSE POCT, B Routine 08/04/2024 5:04 PM CDT GLUCOSE POCT, B Routine 08/04/2024 2:38 PM CDT GLUCOSE POCT, B Routine 08/04/2024 10:44 AM CDT MAGNESIUM, S Routine 08/04/2024 8:42 AM CDT HEPATIC FUNCTION PANEL, S Routine 08/04/2024 8:42 AM CDT RENAL FUNCTION PANEL, S Routine 08/04/2024 8:42 AM CDT IMMUNOGLOBULIN G (IGG), S Routine 08/04/2024 8:42 AM CDT CREATINE KINASE (CK), S Routine 08/04/2024 8:42 AM CDT GLUCOSE POCT, B Routine 08/04/2024 8:02 AM CDT SPSMA RESULT Routine 08/04/2024 5:04 AM CDT PROTHROMBIN TIME (PT), P Routine 08/04/2024 5:04 AM CDT HEPATIC FUNCTION PANEL, S Routine 08/04/2024 5:04 AM CDT RENAL FUNCTION PANEL, S Routine 08/04/2024 5:04 AM CDT CBC WITH DIFFERENTIAL, B Routine 08/04/2024 5:04 AM CDT GLUCOSE POCT, B Routine 08/03/2024 9:51 PM CDT GLUCOSE POCT, B Routine 08/03/2024 6:37 PM CDT (TTE) 2D ECHO DOPPLER COLOR Routine 08/03/2024 12:38 PM CDT GLUCOSE POCT, B Routine 08/03/2024 11:35 AM CDT COAG FACTOR V ACTIVITY ASSAY, P Routine 08/03/2024 11:13 AM CDT COAG FACTOR II ACTIVITY ASSAY, P Routine 08/03/2024 11:13 AM CDT COAG FACTOR X ACTIVITY ASSAY, P Routine 08/03/2024 11:13 AM CDT COAG FACTOR VII ACTIVITY ASSAY, P Routine 08/03/2024 11:13 AM CDT REPTILASE TIME, P Routine 08/03/2024 11:13 AM CDT PT MIX 1:1 Routine 08/03/2024 11:13 AM CDT SOLUBLE FIBRIN MONOMER Routine 08/03/2024 11:13 AM CDT DIC/ICF PROF Routine 08/03/2024 11:13 AM CDT US LIVER WITH LIVER DOPPLER RAD - Routine (most inpatients and all outpatients) 08/03/2024 10:23 AM CDT US PARACENTESIS WITH IMAGING GUIDANCE RAD - Routine (most inpatients and all outpatients) 08/03/2024 9:53 AM CDT CELL COUNT AND DIFFERENTIAL, BF Timed 08/03/2024 9:26 AM CDT Illness Febrile Acidosis Lactic Sepsis (HCC) BACTERIAL CULTURE, AEROBIC + SUSC Timed 08/03/2024 9:26 AM CDT Illness Febrile Acidosis Lactic Sepsis (HCC) GLUCOSE POCT, B Routine 08/03/2024 8:44 AM CDT HEMOGLOBIN A1C, B Timed 08/03/2024 4:0 4 AM CDT MAGNESIUM, S Timed 08/03/2024 4:04 AM CDT PHOSPHORUS (INORGANIC), S Timed 08/03/2024 4:04 AM CDT LACTATE, B/P Timed 08/03/2024 4:04 AM CDT HEPATIC FUNCTION PANEL, S Timed 08/03/2024 4:04 AM CDT BASIC METABOLIC PANEL, S/P Timed 08/03/2024 4:04 AM CDT CBC WITH DIFFERENTIAL, B Timed 08/03/2024 4:04 AM CDT TROPONIN T, 6H, 5TH GEN, P Timed 08/03/2024 12:09 AM CDT LACTATE, B/P Timed 08/02/2024 8:18 PM CDT TROPONIN T, 2H/6H REFLEX, 5TH GEN, P Timed 08/02/2024 8:[address] ABDOMEN PELVIS WITH IV CONTRAST RAD - Semiurgent (Fast; most ED patients; some inpatients) 08/02/2024 7:57 PM CDT HC URINALYSIS AUTO WO MICRO Routine 08/02/2024 6:19 PM CDT DIPSTICK, U STAT 08/02/2024 6:11 PM CDT OSMOLALITY, U STAT 08/02/2024 6:11 PM CDT PH, U STAT 08/02/2024 6:11 PM CDT MICROSCOPIC AUTOMATED STAT 08/02/2024 6:11 PM CDT URINALYSIS WITH MICROSCOPIC STAT 08/02/2024 6:11 PM CDT BACTERIAL CULTURE, AEROBIC + SUSC, URINE STAT 08/02/2024 6:11 PM CDT IFLU A, B, SARS COV-2, PCR, RAPID,V STAT 08/02/2024 6:03 PM CDT SEDIMENTATION RATE, B STAT 08/02/2024 6:00 PM CDT BACTERIA / NEDA CULTURE, BLOOD STAT 08/02/2024 6:00 PM CDT GLUCOSE POCT, B STAT 08/02/2024 5:49 PM CDT LACTATE FOR SEPSIS WITH REFLEX STAT 08/02/2024 5:49 PM CDT PHOSPHORUS (INORGANIC), S STAT 08/02/2024 5:49 PM CDT MAGNESIUM, S STAT 08/02/2024 5:49 PM CDT C-REACTIVE PROTEIN (CRP), S/P STAT 08/02/2024 5:49 PM CDT HEPATIC FUNCTION PANEL, S STAT 08/02/2024 5:49 PM CDT TROPONIN T, BASELINE, 5TH GEN, P STAT 08/02/2024 5:49 PM CDT CBC WITH DIFFERENTIAL, B STAT 08/02/2024 5:49 PM CDT BASIC METABOLIC PANEL, S/P STAT 08/02/2024 5:49 PM CDT BACTERIA / NEDA CULTURE, BLOOD STAT 08/02/2024 5:49 PM CDT ECG STAT 08/02/2024 5:33 PM CDT DX CHEST AP OR PA AND LATERAL 2 VIEWS RAD - Semiurgent (Fast; most ED patients; some inpatients) 08/02/2024 5:28 PM CDT ECG Routine 08/02/2024 4:50 PM CDT US SCROTUM RAD - Routine (most inpatients and all outpatients) 07/22/2024 11:31 AM CDT Ascites Chronic BASIC METABOLIC PANEL, S/P Routine 07/08/2024 11:34 AM CDT Ascites Chronic BASIC METABOLIC PANEL, S/P Routine 06/22/2024 9:51 AM CDT Ascites Chronic BASIC METABOLIC PANEL, S/P Routine 06/07/2024 10:05 AM CDT Cirrhosis Nonalcoholic (HCC) OPHTHALMOLOGY IMAGE EXAM Routine 01/21/2016 12:00 AM CDT from Last 3 Months or Most Recently Relevant to Health Maintenance Results * (ABNORMAL) Basic Metabolic Panel (08/30/2024 8:27 AM CDT) Only the most recent of10 resultswithin the time period is included. Potassium, S 4.3 3.6 - 5.2 mmol/L [...] AM CDT 08/30/2024 9:26 AM CDT Mary Randolph M.D. LAB BLOOD ADD-ON Final Resu lt Performing Organization Address City/[facility]/ZIP Co de Phone Number [facility] [place] [address] [place] [address], [facility] DTL [facility] [address] [place] [address] * (ABNORMAL) Lactate (08/29/2024 9:41 PM CDT) Only the most recent of4 resultswithin the time period is included. Lactate, P 2.4(H) 0.5 - 2.2 mmol/L 08/29/2024 10:06 PM CDT [facility] Blood (Blood, Venous) 08/29/2024 9:41 PM CDT 08/29/2024 9:47 PM CDT Mary Randolph M.D. LAB BLOOD NON ADD-ON Final Result Performing Organization Address City/[facility] Co de Phone Number [facility] [place] [address] [place] [address], [facility] STMA [facility] [address] [place] [address] * (ABNORMAL) Prothrombin Time (PT) (08/29/2024 12:46 PM CDT) Only the most recent of2 resultswithin the time period is included. Prothrombin Time, P 12.9(H) 9.4 - 12.5 [...] D.N.P., M.S.N. LAB BLOOD ADD-ON Final Result [facility] [address] [place] [address], [place] DTL [facility] [address] [place] [address] * DX Chest AP or PA and Lateral 2 Views (08/29/2024 11:57 AM CDT) Only the most recent of2 resultswithin the time period is included. Anatomical Region Laterality Modality Chest, Thoracic RST [...] anterior wedging of a lower thoracicvertebral body. us Jane Ritchie APRN, C.N.P. , D.N.P., M.S.N. [...] CONTRAST COMPARISON: None available on our PACS service observer chief FINDINGS: Age-related global parenchymal volume loss is [...] CONTRAST COMPARISON: None available on our PACS service observer chief FINDINGS: Age-related global parenchymal volume loss is [...] are unremarkable. IMPRESSION: No acute intracranial abnormality. us Jane Ritchie APRN, C.N.P., D.N.P., M.S.N. IMG CT PROCEDURES Final Result * (ABNORMAL) Venous Blood Gas and Electrolytes CG8+, POCT (08/29/2024 11:10 AM CDT) Sample Site, POCT Venstick 08/29/2024 11:20 AM [...] LAB POCT ORDERABLES - DEVICE Final Result POC [facility] [address] [place] [id number], [facility] PCLX [facility] POC [address] [place] [address] [facility] POC [address] [place] [id number] * (ABNORMAL) Lactate for Sepsis with Reflex (08/29/2024 11:08 AM CDT) Only the most recent of2 resultswithin the time period is included. Pathologist [facility] Lactate, P 3.9(H) 0.5 - 2.2 mmol/L 08/29/2024 11:29 AM CDT [facility] Blood (Blood, Venous) 08/29/2024 11:08 AM CDT 08/29/2024 11:17 AM CDT Jane Ritchie APRN, C.N.P., D.N.P., M.S.N. LAB BLOOD NON ADD-ON Final Result [facility] [place] [address] [place] [address], [facility] STMA [facility] [address] [place] [address] * (ABNORMAL) Hepatic Function Panel (08/29/2024 11:08 AM CDT) Only the most recent of6 resultswithin the time period is included. Bilirubin, Total, S 1.2 0.0 - 1.2 [...] 11:08 AM CDT 08/29/2024 11:50 AM CDT Mendy Grossman APRN.N.P., D.N.P., M.S.N. LAB BLOOD ADD-ON Final Result Performing Organization Address [facility] [place]/[facility] Co de Phone Number [facility] [place] [address] [place] [address] * (ABNORMAL) Beta-Hydroxybutyrate (08/29/2024 11:08 AM CDT) Pathologist [facility] Beta-Hydroxybut yrate, S 0.5(H) <0.4 mmol/L 08/29/2024 12:24 PM CDT DTL Blood (Blood, Venous) 08/29/2024 11:08 AM CDT 08/29/2024 11:50 AM CDT Jane Ritchie APRN, Mendy.N.P., D.N.P., M.S.N. LAB BLOOD ADD-ON Final Result Performing Organization Address [facility] [place]/[facility] Co de Phone Number [facility] [place], [facility] [address] 200 [place] [address] * (ABNORMAL) CBC with Differential, Blood (08/29/2024 11:08 AM CDT) Only the most recent of4 resultswithin the time period is included. Hemoglobin 13.7 13.2 - 16.6 g/dL 08/29/2024 [...] D.N.P., M.S.N. LAB BLOOD ADD-ON Final Result [facility] [place] [address] [place] [address], [facility] ST[facility] [address] [place] [address] [facility] [address] [place] [address] * (ABNORMAL) Lipase (08/29/2024 11:08 AM CDT) [facility] Lipase, S 94(H) 13 - 60 U/L 08/29/2024 12:24 PM CDT DTL Blood (Blood, Venous) 08/29/2024 11:08 AM CDT 08/29/2024 11:50 AM CDT Menyd Grossman APRN.N.P., D.N.P., M.S.N. LAB BLOOD ADD-ON Final Result Performing Organization Address [facility] [place]/[facility] Co de Phone Number [facility] [place] 200 [place] [address] * Ammonia (08/29/2024 11:08 AM CDT) Pathologist [facility] Ammonia, P 16 <=30 mcmol/L 08/29/2024 11:50 AM CDT DT Blood (Blood, Venous) 08/29/2024 11:08 AM CDT 08/29/2024 11:22 AM CDT Jane Ritchie APRN, Mendy.N.P., D.N.P., M.S.N. LAB BLOOD NON ADD-ON Final Result Performing Organization Address [facility] [place] [address] * (ABNORMAL) Dipstick, POCT, Urine (08/29/2024 11:01 AM CDT) Only the most recent of2 resultswithin the time period is included. [facility] Glucose, POCT, U >=1000(A) Negative mg/dL 08/29/2024 11:02 AM CDT [facility] Ketone, POCT, U Negative Negative mg/dL 08/29/2024 11:02 AM CDT [facility] Specific [place], POCT, U 1.010 1.005 - 1.030 08/29/2024 [...] - DEVICE Fi nal Result POC RST [facility] [address] PCED [facility] POC 200 [place] [address] * Osmolality, Urine (08/29/2024 10:55 AM CDT) Osmolality, U 416 150 - 1150 mOsm/kg 08/29/2024 11:40 AM CDT DTL Urine 08/29/2024 10:5 5 AM CDT 08/29/2024 11:14 AM CDT us Jane Ritchie APRN, C.N.P., D.N.P., M.S.N. LAB URINE ORDERABLES Final Result [facility] [address] [facility] 200 [place] [address] * (ABNORMAL) Dipstick, Urine (08/29/2024 10:55 AM CDT) Only the most recent of2 resultswithin the time period is included. Hemoglobin, QL, U Trace(A) Negative 08/29/2024 11:19 [...] URINE ORDERABLES Final Result Performing Organization Address City/[facility]/ZIP Co de Phone Number [facility] [place] 200 [place] [address] * pH, Random, Urine (08/29/2024 10:55 AM CDT) pH, Random, U 6.0 4.5 - 8.0 08/29/2024 11:40 AM CDT DTL Urine 08/29/2024 10:5 5 AM CDT 08/29/2024 11:14 AM CDT Mendy Grossman APRN.N.P., D.N.P., M.S.N. LAB URINE ORDERABLES Final Result Performing Organization Address City/[facility]/ZIP Co de Phone Number [facility] [place] 200 [place] [address] * (ABNORMAL) Microscopic Manual (08/29/2024 10:55 AM CDT) Microscopy Abnormal 08/29/2024 11:54 AM CDT DTL [...] URINE ORDERABLES Final Result Performing Organization Address [facility] de Phone Number [facility] [place] 200 [place] [address] * Bacterial Culture, Aerobic + Susceptibility, Urine (08/29/2024 10:55 AM CDT) Only the most recent of2 resultswithin the time period is included. Urine Culture No growth after 1 day of incubation. 08/30/2024 7:22 AM CDT DTL Urine (Urine, Straight Catheter) 08/29/2024 10:55 AM CDT 08/29/2024 11:45 AM CDT Comment:Specimen Source Site : Urine Jane Ritchie APRN, Mendy.N.P. , D.N.P., M.S.N. LAB MICROBIOLOGY - GENERAL ORDERABLES Final Result Performing Organization Address City/[facility] Co de Phone Number [facility] [place] 200 [place] [address] * (ABNORMAL) Urinalysis, with Microscopic: Urine, Straight Catheter (08/29/2024 10:55 AM CDT) Only the most recent of2 resultswithin the time period is included. Source Urine, Urine, Straight Catheter 08/29/2024 11:14 [...] D.N.P., M.S.N. LAB URINE ORDERABLES Final Result [facility] [place] [address] [place] [address], [facility]note 3[facility] [address] [place] [address] * ECG 12 Lead (08/29/2024 10:26 AM CDT) Only the most recent of3 resultswithin the time period is included. Ventricular Rate ECG/Min 71 BPM MUSE AR Interval 128 ms MUSE QRSD Interval 136 ms MUSE QT Interval 440 ms MUSE QTC Interval 478 ms MUSE P [place] 17 degrees MUSE R [place] -47 degrees MUSE T Wave [place] 14 degrees MUSE 08/29/2024 10:2 6 AM [...] M.S.N. ECG ORDERABLES Final Result MUSE NA * US Abdomen Limited (08/05/2024 3:51 PM [...] Small amount of abdominal ascites. Paracentesis deferred. Issac Irwin M.D., Ph.D. IMG US PROCEDURES F inal Result * (ABNORMAL) Glucose, POCT (08/05/2024 12:50 PM CDT) Only the most recent of12 resultswithin the time period is included. Glucose, POCT, B 213(H) 70 - 140 mg/dL 08/05/2024 12:54 PM CDT PCLX Site Capillary 08/05/2024 12:54 PM CDT PCLX Last Intake 1-2 hours 08/05/2024 12:54 PM CDT PCLX Blood 08/05/2024 12:5 0 PM CDT 08/05/2024 12:54 PM CDT Unknown Provider LAB POCT ORDERABLES-MANUAL Jovanna l Result POC [facility] [address] [place] [address], [facility] PCLX [facility] POC [address] [place] [address] * (ABNORMAL) Renal Function Panel (08/05/2024 4:49 AM CDT) Only the most recent of3 resultswithin the time period is included. Potassium, S 3.9 3.6 - 5.2 mmol/L [...] 4:49 AM CDT 08/05/2024 5:28 AM CDT Issac Irwin M.D., Ph.D. LAB BLOOD ADD-ON Fi nal Result [place] [address] [place] [address], [facility]note 3[facility] [address] [place] [address] * (ABNORMAL) CBC no call back, reflex [...] LAB BLOOD NON ADD-O N Final Result [facility] [place] [address] [place] [address], [facility] DTL [facility] [address] [place] [address] DHPM [facility] [address] [place] [address] * Magnesium (08/05/2024 4:49 AM CDT) Only the most recent of4 resultswithin the time period is included. Magnesium, S 1.9 1.7 - 2.3 mg/dL 08/05/2024 5:54 AM CDT DTL Blood (Blood, Venous) 08/05/2024 4:49 AM CDT 08/05/2024 5:28 AM CDT us Issac Irwin M.D., Ph.D. LAB BLOOD ADD-ON Fi nal Result [facility] [place] [address] [place] [address], [facility] [address] [place] [address] * (ABNORMAL) Immunoglobulin G (IgG) (08/04/2024 8:42 AM CDT) Immunoglobulin G (IgG), S 2230(H) 767 - 1590 mg/dL 08/04/2024 2:16 PM CDT [facility] Blood (Blood, Venous) 08/04/2024 8:42 AM CDT 08/04/2024 1:29 PM CDT us Issac Irwin M.D., Ph.D. LAB BLOOD ADD-ON Fi nal Result Performing Organization Address City/[facility]/ZIP Co de Phone Number [facility] [address] [place] [address] [facility] [address] [place] [address] * (ABNORMAL) CK (Creatine Kinase) (08/04/2024 8:42 AM CDT) Creatine Kinase (CK), S 508(H) 39 - 308 U/L 08/04/2024 11:06 AM CDT [facility] Blood (Blood, Venous) 08/04/2024 8:42 AM CDT 08/04/2024 10:03 AM CDT us Issac Irwin M.D., Ph.D. LAB BLOOD ADD-ON Fi nal Result [facility] [place] [address] [place] [address], [place] DTL [facility] 200 [place] [address] * (ABNORMAL) Morphology Eval (special smear) (08/04/2024 5:04 AM CDT) Pathologist [facility] Neutrophilic Segs and Bands 75 50 - [...] are seen. No platelet clumping. Reviewed by: Pipo 08/04/2024 12:32 PM CDT DHPM Blood (Blood, Venous) 08/04/2024 5:04 AM CDT 08/04/2024 11:52 AM CDT Issac Irwin M.D., Ph.D. LAB BLOOD ADD-ON Fi nal Result [facility] [place] 200 [place] [address], [place] [facility] 200 [place] [address] * (TTE) 2D ECHO DOPPLER COLOR (08/03/2024 12:38 PM CDT) [facility] Ejection Fraction 70 MC CV EIMS LV [...] 1:45 PM CDT There are no previous [facility] echocardiograms available for comparison. Echo performed at [...] pericardial effusion. 8. There are no previous [facility] echocardiograms available for comparison. Procedure Note Nilsa Stevens M.B.B.S., M.H.S. - 08/03/2024 For the complete report, [...] pericardial effusion. 8. There are no previous [facility] echocardiograms available forcomparison. Findings There are no previous [facility] echocardiograms available forcomparison. Echo performed at the [...] the complete report, see the Order-Level Documents. Issac Irwin M.D., Ph.D. CV ECHO PROCEDURES Final Result * (ABNORMAL) DIC/ICF Profile (08/03/2024 11:13 AM [...] This test has been modified from the red hat linux administrator's instructions. Its performance characteristics were determined by [facility] in a manner consistent with CLIA [...] AM CDT 08/03/2024 11:38 AM CDT Narrative [facility] - 08/04/2024 2:16 PM CDT Specimen Information: Specimen ID: [id number] Specimen Type: Blood Specimen Collection Start Date: 08/03/2024 11:13 AM Specimen Received Date: 08/03/2024 11:38 AM Specimen ID: [id number] Specimen Type: Blood Specimen Collection Start Date: 08/03/2024 11:13 AM Specimen Received Date: 08/03/2024 11:38 AM Specimen ID: [id number] Specimen Type: Blood Specimen Collection Start Date: 08/03/2024 11:13 AM Specimen Received Date: 08/03/2024 11:38 AM Specimen ID: [id number] Specimen Type: Blood Specimen Collection Start Date: 08/03/2024 11:13 AM Specimen Received Date: 08/03/2024 11:38 AM Specimen ID: [id number] Specimen Type: Blood Specimen Collection Start Date: 08/03/2024 11:13 AM Specimen Received Date: 08/03/2024 11:38 AM us Issac Irwin M.D., Ph.D. LAB BLOOD NON ADD-O N Final Result [facility] [place] 200 [place] [address], [facility] [place] [address] DT 200 [place] [address] * (ABNORMAL) Coag Factor X Assay, Plasma (08/03/2024 11:13 AM CDT) [facility] Coag Factor X Assay, P 55(L) 70 - 150 % 08/04/2024 10:55 AM CDT DT Comment: ----ADDITIONAL INFORMATION---- This test has been modified from the red hat linux administrator's instructions. Its performance characteristics were determined by [facility] in a manner consistent with CLIA requirements. This test has not been cleared or approved by the U.S. Food and Drug Administration. Blood 08/03/2024 11:1 3 AM CDT 08/03/2024 2:17 PM CDT us Issac Irwin M.D., Ph.D. LAB BLOOD ADD-ON Fi nal Result Performing Organization Address [facility] [place] [address] * Reptilase Time, Plasma (08/03/2024 11:13 AM CDT) Reptilase Time, P 19.5 14.0 - 23.9 sec 08/03/2024 12:41 PM CDT DT Comment: ----ADDITIONAL INFORMATION---- This test has been modified from the red hat linux administrator's instructions. Its performance characteristics were determined by [facility] in a manner consistent with CLIA requirements. This test has not been cleared or approved by the U.S. Food and Drug Administration. Blood 08/03/2024 11:1 3 AM CDT 08/03/2024 11:38 AM CDT us Issac Irwin M.D., Ph.D. LAB BLOOD ADD-ON Fi nal Result Performing Organization Address [facility] [place] [address] * Soluble Fibrin Monomer (08/03/2024 11:13 AM CDT) Pathologist [facility] Soluble Fibrin Monomer 8 <=8 mcg/mL 08/03/2024 12:42 PM CDT DT Comment: ----ADDITIONAL INFORMATION---- This test was developed and its performance characteristics determined by [facility] in a manner consistent with CLIA requirements. This test has not been cleared or approved by the U.S. Food and Drug Administration. Blood 08/03/2024 11:1 3 AM CDT 08/03/2024 11:38 AM CDT us Issac Irwin M.D., Ph.D. LAB BLOOD NON ADD-O N Final Result Performing Organization Address [facility] [place]/[facility] de Phone Number [facility] [place] [address] [place] [address] * PT Mix 1:1 (08/03/2024 11:13 AM CDT) [facility] PT Mix 1:1 12.4 9.4 - 12.5 sec 08/03/2024 12:38 PM CDT DT Comment: ----ADDITIONAL INFORMATION---- This test has been modified from the red hat linux administrator's instructions. Its performance characteristics were determined by [facility] in a manner consistent with CLIA requirements. This test has not been cleared or approved by the U.S. Food and Drug Administration. Blood 08/03/2024 11:1 3 AM CDT 08/03/2024 11:38 AM CDT us Issac Irwin M.D., Ph.D. LAB BLOOD ADD-ON Fi nal Result Performing Organization Address [facility] de Phone Number [facility] [place] [address] [place] [address] * (ABNORMAL) Coagulation Factor VII Activity Assay (08/03/2024 11:13 AM CDT) [facility] Coag Factor VII Assay, P 50(L) 65 - 180 % 08/04/2024 10:55 AM CDT DT Comment: ----ADDITIONAL INFORMATION---- This test has been modified from the red hat linux administrator's instructions. Its performance characteristics were determined by [facility] in a manner consistent with CLIA requirements. This test has not been cleared or approved by the U.S. Food and Drug Administration. Blood 08/03/2024 11:1 3 AM CDT 08/03/2024 2:17 PM CDT us Issac Irwin M.D., Ph.D. LAB BLOOD ADD-ON Fi nal Result Performing Organization Address [facility] [place]/[facility] Co de Phone Number [facility] [place] [address] [facility]note 3] 200 [place] [address] * (ABNORMAL) Coagulation Factor V Activity Assay (08/03/2024 11:13 AM CDT) [facility] Coag Factor V Assay, P 50(L) 70 - 165 % 08/04/2024 11:02 AM CDT DT Comment: ----ADDITIONAL INFORMATION---- This test has been modified from the red hat linux administrator's instructions. Its performance characteristics were determined by [facility] in a manner consistent with CLIA requirements. This test has not been cleared or approved by the U.S. Food and Drug Administration. Blood 08/03/2024 11:1 3 AM CDT 08/03/2024 2:17 PM CDT us Issac Irwin M.D., Ph.D. LAB BLOOD ADD-ON Fi nal Result Performing Organization Address [facility] [place]/[facility] de Phone Number [facility] [place] [address] [place] [address] * (ABNORMAL) Coagulation Factor II Activity Assay (08/03/2024 11:13 AM CDT) [facility] Factor II Assay, P 54(L) 75 - 145 % 08/04/2024 10:55 AM CDT DT Comment: ----ADDITIONAL INFORMATION---- This test has been modified from the red hat linux administrator's instructions. Its performance characteristics were determined by [facility] in a manner consistent with CLIA requirements. This test has not been cleared or approved by the U.S. Food and Drug Administration. Blood 08/03/2024 11:1 3 AM CDT 08/03/2024 2:17 PM CDT us Issac Irwin M.D., Ph.D. LAB BLOOD ADD-ON Fi nal Result Performing Organization Address [facility] [place]/State/ZIP Co de Phone Number [facility] [address] [place] [address], [place] DTL [facility] [address] [place] [address] * US Liver with Liver Doppler (08/03/2024 [...] cm). us Jose Robertson APRN, C.N.P., D.N.P. IMG US AR OCEDURES Final Result * US Paracentesis with [...] IMG US PROCEDURES F inal Result * Bacterial Culture, Aerobic + Susceptibility (08/03/2024 9:26 AM CDT) Bacterial Culture, Aerobic + Susc No growth after 5 days of incubation. 08/08/2024 9:44 AM CDT DTL Fluid (Peritoneal Fluid) 08/03/2024 9:26 AM CDT Narrative [facility] [place] - 08/08/2024 9:44 AM CDT Bacterial Culture: Received Bactec aerobic and Bactec anaerobic bottles us Issac Irwin M.D., Ph.D. LAB MICROBIOLOGY - GENERAL ORDERABLES Final Result [facility] [place] [address] [place] [address], [place] [facility]note 3[facility] [address] [place] [address] * Cell Count and Differential, Body Fluid (08/03/2024 9:26 AM CDT) Fluid Type Peritoneal /Paracente sis 08/03/2024 10:21 AM CDT [facility] Gross Appearance Serous 08/04/19 10:21 AM CDT [facility] Total Nucleated Cells 152 /mcL 08/03/2024 10:21 AM CDT [facility] Comment: ----REFERENCE VALUE---- Synovial: <150 /mcL Peritoneal: <500 /mcL Pleural: <500 /mcL Pericardial: <500 /mcL ----ADDITIONAL INFORMATION---- This test has been modified from the red hat linux administrator's instructions. Its performance characteristics were determined by [facility] in a manner consistent with CLIA requirements. This test has not been cleared or approved by the U.S. Food and Drug Administration. Neutrophils 37 % 08/03/2024 11:02 AM CDT [facility] Comment: ----REFERENCE VALUE---- Synovial: <25% Peritoneal: <25% Pleural: <25% Pericardial: <25% Lymphocytes 6 Synovial <75% % 08/03/2024 11:02 AM CDT PM Monocytes/Macropha ges 57 Synovial <70% % 08/03/2024 11:02 AM CDT [facility] Comment See Comment 08/03/2024 11:02 AM CDT [facility] Comment:No blasts or maligna nt cells seen. Reviewed by: Pipo 08/03/2024 11:02 AM CDT [facility] Fluid (Peritoneal Fluid) 08/03/2024 9:26 AM CDT Issac Irwin M.D., Ph.D. LAB BODY FLUIDS AND STOOLS ORDERABLES Final Result [facility] [address] [place] [address], [facility] [address] [place] [address] * Phosphorus Inorganic (08/03/2024 4:04 AM CDT) Only the most recent of2 resultswithin the time period is included. Phosphorus (Inorganic), S 2.7 2.5 - 4.5 mg/dL 08/03/2024 4:59 AM CDT DTL Blood (Blood, Venous) 08/03/2024 4:04 AM CDT 08/03/2024 4:41 AM CDT Mendy Moya APRN.N.P., D.N.P. LAB BLOOD ADD-ON Final Result [facility] [place] [address] 200 [place] [address] * (ABNORMAL) Hemoglobin A1c (08/03/2024 4:04 AM CDT) Pathologist [facility] Hemoglobin A1c, B 7.6(H) 4.0 - 5.6 % 08/03/2024 4:56 AM CDT DTL Comment: Hemoglobin A1c values greater than or equal to 6.5 percent are diagnostic for diabetes mellitus. Diagnosis should be confirmed by repeat testing. In diabetic patients, HbA1c goals should be discussed with healthcare provider. Blood (Blood, Venous) 08/03/2024 4:04 AM CDT 08/03/2024 4:32 AM CDT Jose Robertson APRN C.N.P., D.N.P. LAB BLOOD ADD-ON Final Result [facility] [place] [address] [place] [address] * (ABNORMAL) Troponin T, 6h, 5th Gen (08/03/2024 12:09 AM CDT) Pathologist [facility] Troponin T, 6 hr, 5th gen 55(H) <=15 ng/L 08/03/2024 12:46 AM CDT [facility] 6H Delta 7 ng/L 08/03/2024 12:46 AM CDT [facility] 6H Delta Interp Not Changing 08/03/2024 12:46 AM CDT [facility] Blood 08/03/2024 12:0 9 AM CDT 08/03/2024 12:16 AM CDT Adair Galindo APRN, C.N.P. LAB BLOOD TROPONI N Final Result Performing Organization Address [facility] [place] Co de Phone Number [facility] [place] [address] [place] [address] * (ABNORMAL) Troponin T, 2 Hour with [...] 8:18 PM CDT 08/02/2024 8:22 PM CDT Adair Galindo APRN, C.N.P. LAB BLOOD TROPONI N Final Result Performing Organization Address [facility] Co de Phone Number [facility] [place] [address] [place] [address] * CT Abdomen Pelvis with IV Contrast (08/02/2024 7:57 PM CDT) Anatomical Region Laterality Modality Abdomen, Pelvis, Abdominal R ST LOS, Abdominal ARZ LOS, Abdominal FLA LOS N/A Computed Tomograp hy, Computed Tomography 08/02/2024 7:5 4 PM CDT Impressions 08/02/2024 8:22 PM CDT [...] or significant change since11/04/2023. Anup Escalante M.D. [facility] [place] [place] CT PROCEDURES Final Result * (ABNORMAL) Microscopic Automated (08/02/2024 6:11 PM CDT) Microscopy Abnormal 08/02/2024 7:48 PM CDT DTL RBC <3 <3 /hpf 08/02/2024 7:48 PM CDT DTL WBC 4-10(A) /hpf 08/02/2024 7:48 PM CDT DTL Comment: ----REFERENCE VALUE---- <4 (Males) <11 (Females) Urine 08/02/2024 6:11 PM CDT 08/02/2024 7:25 PM CDT Adair Galindo APRN, C.N.P. LAB URINE ORDERAB LES Final Result [facility] [place] 200 [place] [address], [facility] 200 [place] [address] * pH, Urine (08/02/2024 6:11 PM CDT) [facility] pH, U 6.0 4.5 - 8.0 08/02/2024 8:1 3 PM CDT DT Urine 08/02/2024 6:11 PM CDT 08/02/2024 7:25 PM CDT Adair Galindo APRN, C.N.P. LAB URINE ORDERAB LES Final Result Performing Organization Address City/[facility]/ZIP Co de Phone Number [facility] [place] 200 [place] [address], [facility] 200 [place] [address] * Osmolality, Urine (08/02/2024 6:11 PM CDT) [facility] Osmolality, U 602 150 - 1150 mOsm/kg 08/02/2024 8:13 PM CDT [facility] Urine 08/02/2024 6:11 PM CDT 08/02/2024 7:25 PM CDT Adair Galindo APRN, C.N.P. LAB URINE ORDERAB LES Final Result [facility] [place] 200 [place] [address], [facility] 200 [place] [address] * Influenza A/B, SARS CoV-2, PCR, Rapid Symptomatic (08/02/2024 6:03 PM CDT) [facility] Influenza A, PCR, Rapid, V Negative [...] RAL ORDERABLES Final Result Performing Organization Address City/[facility]/ZIP Co de Phone Number [facility] [place] [address] [place] [address] * Bacteria / Neda Culture, Blood #2 (08/02/2024 6:00 PM CDT) Only the most recent of2 resultswithin the time period is included. Bacteria/Taylor da Culture, Blood No growth after 5 days of incubation. 08/07/2024 8:02 PM CDT DTL Blood (Blood, Peripheral Draw) 08/02/2024 6:00 PM CDT 08/02/2024 7:27 PM CDT Comment:Specimen Source Site : Blood Anup Escalante M.D. LAB MICROBIOLOGY - GENE RAL ORDERABLES Final Result Performing Organization Address City/[facility]/ZIP Co de Phone Number [facility] [place] [address] [place] [address] * (ABNORMAL) Sedimentation Rate (08/02/2024 6:00 PM CDT) Sedimentation Rate, B 40(H) 3 - 28 mm/h 08/02/2024 8:46 PM CDT DTL Blood (Blood, Venous) 08/02/2024 6:00 PM CDT 08/02/2024 6:15 PM CDT Anup Escalante M.D. LAB BLOOD ADD-ON Final Result [facility] [place] [address] [facility] 200 [place] [address] * (ABNORMAL) Troponin T, Baseline with 2 Hour/6 Hour Reflex Biomarker Panel (08/02/2024 5:49 PM CDT) Troponin T, Baseline, 5th gen 48(H) <=15 ng/L 08/02/2024 6:19 PM CDT [facility] Blood (Blood, Venous) 08/02/2024 5:49 PM CDT 08/02/2024 5:54 PM CDT Malik Oswald M.D. LAB BLOOD TROPONIN Final Result Performing Organization Address [facility] [place]/[facility]/ZIP Co de Phone Number [facility] [place] [address] 200 [place] [address] * (ABNORMAL) CRP (C-Reactive Protein) (08/02/2024 5:49 PM CDT) C-Reactive Protein (CRP), S 15.8(H) <5.0 mg/L 08/02/2024 6:51 PM CDT DTL Blood (Blood, Venous) 08/02/2024 5:49 PM CDT 08/02/2024 6:32 PM CDT us Anup Escalante M.D. LAB BLOOD ADD-ON Final Result [facility] [place] [address] [place] [address], [place] DTL [address] [address] * US Scrotum (07/22/2024 11:31 AM CDT) [...] is identified in the abdomen. Procedure Note eZb Griffiths M.D. - 07/22/2024 EXAM: US SCROTUM [...] recommend clinical correlation and/or continued attentionon follow-up. us Marv Myrick M.D., M.P.H. IMG US PROCEDURE S Final Result * OPHTHALMOLOGY IMAGE EXAM (01/21/2016 12:00 AM CDT) Anatomical Region Laterality Modality Other 01/21/2016 Addenda Addendum by ProviderLevar M.D. on 01/21/2016 12:00 AM CDT OPH^^^MCR Eyes Visual Tay-Manual 01/21/2016 00:00:00 us Historical Provider IMG NON RAD IMAGING PROCEDUR ES Final Result from Last 3 Months or Most Recently Relevant to Health Maintenance Insurance MEDICARE [facility] Advance Directives For more information, please contact: [phone] * Full Code (Latest Code Status on File) Date Activated Date Inactivated Comments 08/29/2024 4:14 PM 08/30/2024 2:11 PM Question Answer Comments Full Code: Discussed * Full Code Date Activated Date Inactivated Comments 08/02/2024 11:26 PM 08/05/2024 6:30 PM Question Answer Comments Full Code: Discussed * Full Code Date Activated Date Inactivated Comments 09/10/2023 6:30 [...] Answer Comments Full Code: Discussed Care Teams Consumer Science Teacher Relationship Specialty Start Date End Date Elsewhere, Pcp PCP - General Internal Medicine 08/19/21
--- OUTSIDE RECORDS SUMMARY | 2024-09-02 03:29 | XMS_ITS | Clinical Summary ---
Author Organization [facility] Address [address] [place] [address] Care Team Providers Care Cathode Ray Tube Assembler Name Role Phone Fay Virk DO Primary Care Provider [phone] Allergies Active Allergy Reactions Criticality Noted Date Comments Acetaminophen Cholestatic Hepatitis,Other - Describe In Comment Field High 09/02/2011 Drug induced Hepatitis Celecoxib Other - Describe In Comment Field 06/12/2020 Patient hospitalized for Acute Kidney Injury for 4 days after taking Celebrex preop while on Lisinopril Kidney Failure Medications Ferrous Gluconate 324 mg (38 mg iron) tablet Daily Active cholecalciferol, Vitamin D3, 2,000 unit tablet Daily Active iron,carbonyl-palma min C (Vitron-C) 65 mg iron- 125 mg Delayed-Release tablet Take 1 Tablet by mouth once daily. Active ascorbic acid, vitamin C, (VITAMIN C) 500 mg tablet Take 500 mg by mouth. Active traZODone (DESYREL) 50 mg tabletIndications: Insomnia, idiopathic Take 0.5 Tablets (25 mg) by mouth at bedtime. 31 Tablet 4 Active rosuvastatin (CRESTOR) 20 mg tabletIndications: Hyperlipidemia, unspecified hyperlipidemia type TAKE 1 TABLET (20 MG) BY MOUTH AT BEDTIME. 90 Tablet 2 4 Active furosemide (LASIX) 20 mg tabletIndications: Other ascites Three 20 mg tablets in the morning and two 20 mg tablets at night 450 Tablet 3 4 Active metFORMIN (GLUCOPHAGE XR) 500 mg Extended-Release tabletIndications: Type 2 diabetes mellitus without complication, without long-term current use of insulin (HC) TAKE 1 TABLET (500 MG) BY MOUTH TWO TIMES DAILY WITH MEALS. 180 Tablet 2 4 Active Jardiance 10 mg tabletIndications: Ascites of liver,Type 2 diabetes mellitus without complication, without long-term current use of insulin (HC) TAKE ONE TABLET BY MOUTH DAILY 90 Tablet 4 5 Active omeprazole (PRILOSEC) 20 mg Delayed-Release capsuleIndications :Cirrhosis, non-alcoholic (HC),Portal hypertension with esophageal varices (HC),Abdominal bloating TAKE 1 CAPSULE (20 MG) BY MOUTH ONCE DAILY BEFORE A MEAL. 90 Capsule 2 5 Active carvediloL 3.125 mg tablet Take 3.125 mg by mouth two times daily with meals. 5 Active Multivits,Ca,Air Brake Tester als-Iron-FA 9 mg iron-400 mcg tablet Take 1 Tablet by mouth once daily. 5 Active sennosides-docusat e (8.6-50 mg) tablet Take 2 Tablets by mouth two times daily. 4 Active spironolactone 100 mg tablet Take 100 mg by mouth. 5 Active eplerenone 50 mg tablet Take 100 mg by mouth once daily. Active eplerenone (INSPRA) 50 mg tabletIndications: Ascites of liver Take 1 Tablet (50 mg) by mouth once daily. 60 Tablet 5 3 08/12/19 25 Discontin ued(*Med complete/ Regimen complete/ Level of care change) Active Problems Problem Noted Date Diagnosed Date Rheumatoid arthritis, involv ing unspecified site, unspecified whether rheumatoid factor present 08/11/2024 Thrombocytopenia 05/12/2022 Deep vein thrombosis (DVT) of [...] Cirrhosis, non-alcoholic 08/25/2018 Benign prostatic hyperplasia 04/19/2015 Overview (06/25/2020): PSA every other year Inverted follicular keratosis 10/05/2012 Frozen shoulder 09/28/2012 Overview (11/06/2020): Right Encounters Date Type Department Care Team Description 08/31/2024 Travel 08/31/2024 Telephone [facility] [address] [place] [address] Tulio Bell MD Appointment Request 08/11/2024 11:15 AM CDT Ancillary Procedure [facility] [address] [place] [address] 08/11/2024 9:20 AM CDT Office Visit [facility] [address] [place] [address] Fay Virk, [facility] F/U (08/05 - has been being seen at [facility] for his GI - he is getting drainages and he was told he does need a new liver but they are hard to come by ) 08/11/2024 Travel from Last 3 Months Immunizations Immunization Administration Dates Next Due COVID-19 vaccine (Moderna 10 0mcg/0.5mL) PF MDV 06/22/2020,05/23/2020 Hepatitis B, Unspecified 05/22/1992,12/20/1991,0 11/22/1991 Influenza Virus, Unspecified 12/23/2017,12/22/19 08 Influenza, High-dose Quadriv alent Inactivated 11/21/2021,01/18/2020 Influenza, IIV3 (Age 6-35 mos) 12/22/2007 Influenza, [...] 0 05/12/2022 Social Connections Answer Date Recorded Do you often feel lonely or isolated from those around you? 0 08/11/2024 Financial Resource Strain Answer Date R ecorded Difficulty of Paying Living Expenses 3 08/11/2024 Difficulty of Paying Living Expenses Not on file 08/11/2024 Food Insecurity Answer Date Recorded Do you worry your food will run out before you are able to buy more? 1 08/11/2024 Transportation Needs Answer Date Record ed Does lack of transportation keep you from medica l appointments? 1 08/11/2024 Does lack of transportation keep you from work, meetings or getting things that you need? 1 08/11/2024 Housing Stability Answer Date Recorded What is your housing situation today? 1 08/11/2024 Utilities Answer Date Recorded Do you have trouble paying f or utilities (for example, heat, electricity, water, phone)? 1 08/11/2024 Sex and Gender Information Value Date Recorded Sex Assigned at Not on file Legal Sex Male 2:04 PM CDT Gender Identity Not on file Sexual Orientation Not on file Obstetrics History Last Filed Vital Signs Vital Sign Reading Time Taken Comments Blood Pressure 90/57 08/11/2024 9:27 AM CDT Pulse 76 08/11/2024 9:27 AM CDT Temperature 36.6 C (97.9 F) 06/29/2023 10:28 AM CDT Respiratory Rate 16 06/29/2023 10:2 8 AM CDT Oxygen Saturation 98% 08/11/2024 9:27 AM CDT Inhaled Oxygen Concentration - - Weight 61.6 kg (135 lb 14.4 oz) 08/11/2024 9:27 AM CDT Height 172 cm (5' 7.7) 08/11/2024 9:27 AM CDT Body Mass Index 20.85 08/11/2024 9:27 AM CDT Plan of Treatment Upcoming Encounters Date Type Department Care Team (Late st Contact Info) Description 09/02/2024 2:40 PM CDT Office Visit [facility] [address] [place] [address] Tulio Bell MD [address] [place] [address] 11/09/2024 8:55 AM CDT Office Visit [facility] [address] [place] [address] Fay Virk DO [address] [place] [address] Health Maintenance Due Date Last Done Comments Zoster (shingles) series for age 50+ (2 of 3) 12/02/2012 10/07/2012 Tetanus booster 09/01/2021 09/02/2011, 12/01/2007 Depression screening for age 12+ 05/12/2023 05/12/2022, 04/01/2022, 08/27/2020, Additional history exists Medicare Wellness for age 65+ 05/13/2023 05/12/2022, 08/27/2020 RSV vaccine for adults or (1 - 1-dose 75+ series) 09/26/2023 COVID-19 vaccine series ( season) 2023 09/18/2021, 03/20/2021, 06/22/2020, Additional history exists Influenza Vaccine (Season Ended) 2024 12/24/2020, 12/23/2017, 12/22/2007, Additional history exists BMI (ht and wt on same day) for age 18+ 08/11/2025 08/11/2024, 10/13/2022, 05/12/2022, Additional history exists Lipids for age 45-75 05/12/2027 05/12/2022, 07/05/19 21 Colonoscopy through age 75 09/15/202809/15 (Verified in Care Everywhere or Patient Record) Hepatitis B series for 19+ Completed 05/22, 12/20/1991, 11/22/1991 Tdap Completed 09/02/2011, 12/01/2007 Pneumococcal series for age 50+ Completed 09/29/2014, 09/28/2013 Hepatitis C screening for age 18-79 Addressed 08/25/2018 (Verified in Care Everywhere or Patient Record) Overridden with the intention of not completing the topic Procedures Procedure Name Priority Date/Time Associated Diagnosis Comments US SCROTUM WITH DUPLEX RAGHU 08/11/2024 11:30 AM CDT Testicular swelling, left LC LIPID PANEL Routine 05/12/2022 8:33 AM TUGGER OPERATOR Type 2 diabetes mellitus with hyperglycemia, without long-term current use of insulin (HC) from Last 3 Months or Most Recently Relevant to Health Maintenance Results * US SCROTUM W DUPLEX (08/11/2024 11:30 AM CDT) Anatomical Region Laterality Modality SCROTUM, TESTES Ultrasound 08/11/2024 12:4 3 PM CDT Impressions 08/11/2024 12:43 PM CDT 1. Large complex multilocular fluid collection in the left inguinal canal. Appearance is consistent with an inguinal hernia with chronic ascites based on comparison with prior CT. 2. Small fat containing right inguinal hernia. Dictated by Bridget Ramirez MD @ 08/11/2024 12:43:03 PM (Electronically Signed) Narrative 08/11/2024 12:43 PM CDT For Patients: As a result of the Cures Act, medical imaging exams and procedure reports are released immediately into your electronic medical record. You may view this report before your referring provider. If you have questions, please contact your health care provider. INDICATION: Left testicular swelling COMPARISON: Ultrasound 10/24/2022, CTA 10/30/2022. TECHNIQUE: Transverse and longitudinal sonographic images of the scrotum and both testicles were performed. Color Doppler with spectral waveform analysis of both testicles was performed. FINDINGS: RIGHT TESTICLE: The testicle is homogeneous in echogenicity with normal echotexture. No focal mass. The testicle is located within the scrotal sac. The testicle measures 4.3 x 2.9 x 1.9 cm. Normal epididymis. Small simple appearing varicocele. No hydrocele. Normal testicular arterial and venous color Doppler flow with normal arterial and venous waveforms on duplex Doppler. There is a fat containing right inguinal hernia. Normal-appearing blood flow. LEFT TESTICLE: The testicle is homogeneous in echogenicity with normal echotexture. No focal mass. The testicle is located within the scrotal sac. The testicle measures 5.1 x 3.0 x 2.0 cm. Normal epididymis. No varicocele. There is a complex multilocular fluid collection in the left scrotum behind the testicle and extending up along the inguinal canal. It measures 7.5 x 4.4 x 3.0 centimeters. Hydrocele. Normal testicular arterial and venous color Doppler flow with normal arterial and venous waveforms on duplex Doppler. Procedure Note Bridget Ramirez MD - 08/11/2024 For Patients: As a result of the Cures Act, medical imagingexams and procedure reports are released immediately into your electronicmedical record. You may view this report before your referring provider.If you have questions, please contact your health care provider. INDICATION: Left testicular swelling COMPARISON: Ultrasound 10/24/2022, CTA 10/30/2022. TECHNIQUE: Transverse and longitudinal sonographic images of the scrotum and bothtesticles were performed. Color Doppler with spectral waveform analysis ofboth testicles was performed. FINDINGS: RIGHT TESTICLE: The testicle is homogeneous in echogenicity with normal echotexture. Nofocal mass. The testicle is located within the scrotal sac. The testiclemeasures 4.3 x 2.9 x 1.9 cm. Normal epididymis. Small simple appearingvaricocele. No hydrocele. Normal testicular arterial and venous color Doppler flow with normalarterial and venous waveforms on duplex Doppler. There is a fat containing right inguinal hernia. Normal-appearing bloodflow. LEFT TESTICLE: The testicle is homogeneous in echogenicity with normal echotexture. Nofocal mass. The testicle is located within the scrotal sac. The testiclemeasures 5.1 x 3.0 x 2.0 cm. Normal epididymis. No varicocele. There is acomplex multilocular fluid collection in the left scrotum behind thetesticle and extending up along the inguinal canal. It measures 7.5 x 4.4x 3.0 centimeters. Hydrocele. Normal testicular arterial and venous color Doppler flow with normalarterial and venous waveforms on duplex Doppler. IMPRESSION: 1. Large complex multilocular fluid collection in the left inguinal canal.Appearance is consistent with an inguinal hernia with chronic ascitesbased on comparison with prior CT. 2. Small fat containing right inguinal hernia. Dictated by Bridget Ramirez MD @ 08/11/2024 12:43:03 PM (Electronically Signed) us Adei Everqra DO US Final Result * LC LIPID PANEL (05/12/2022 8:33 AM TUGGER OPERATOR) [facility] Cholesterol, Total 134 100 - 199 mg/dL 05/15/2022 12:06 AM [facility] Triglycerides 105 0 - 149 mg/dL 05/15/2022 12:06 AM [facility] ([facility]) HDL Cholesterol 58 >39 mg/dL 12:06 AM [facility] ([facility]) VLDL Cholesterol Leo 19 5 - 40 mg/dL 05/15/2022 12:06 AM [facility] LDL Chol Calc (NIH) 57 0 - 99 mg/dL 05/15/2022 12:06 AM [facility] ([facility]) Blood BLOOD SPECIMEN / Unknown Venipuncture / Unknown 05/12/2022 8:33 AM TUGGER OPERATOR 05/12/2022 8:33 AM TUGGER OPERATOR Narrative [facility] ([facility] - 05/15/2022 12:06 AM TUGGER OPERATOR Performed at: [facility] [address] [place] [id number] Sales Counselor: Jean-Paul Salazar MD, Phone: [phone] us Carinai Sully DO SEND OUTS Final Result [facility] [address] [place] [address], from Last 3 Months or Most Recently Relevant to Health Maintenance Insurance MEDICARE PART B [place] ONLY [place] ONLY Care Teams Cathode Ray Tube Assembler Relationship Specialty Start Date End Date Fay Virk DO [address] [place] [address] PCP - General Family Practice 06/11/20
--- OUTSIDE RECORDS SUMMARY | 2024-09-02 03:30 | XMS_ITS | Encounter Summary ---
Author Organization [facility] Address [address] [place] [address] Care Team Providers Care Subassemblies Wirer Name Role Phone Elsewhere, Pcp Primary Care Provider Unavailabl e Encounter Details Date Type Department Care Team (Latest Contact Info) Description 08/11/2024 Clinical Communication Division of Gastroenterology in [place], [place] [address] [place] [address] Marv Myrick M.D., M.P.H. [address] [place] [address] Social History Tobacco Use Types Packs/Day Years Used Date Smoking Tobacco: Never Smokeless Tobacco: Never Alcohol Use Standard Drinks/Week Comments Not Currently 0 (1 standard drink = 0.6 oz pur e alcohol) Don t drink [facility] Utilities Answer Date Recorded In [...] How often do you attend chur or protestant services? More than 4 times per year 04/27/2022 Do you belong to any clubs o r organizations such as gnosticism groups, unions, fraternal or athletic groups, or [...] at all 04/27/2022 [facility] Occupat ional Health - Occupational [...] your living situation today? I have a [facility] place to live 08/03/2024 Education Answer Date Recorded What is the highest level of school you have completed or the highest degree you have received? Bachelor's degree (e.g., BA, AB, BS) 11/11/2020 Sex and Gender Information Value Date Recorded Sex Assigned at Male 02/12/2021 6:18 PM CLINICAL OPERATIONS LEADER Legal Sex Male 9:16 PM CLINICAL OPERATIONS LEADER Gender Identity Male 11/11/2020 11:30 AM CDT Sexual Orientation Straight 11/11/2020 11 :30 AM CDT documented as of this encounter Plan of Treatment Upcoming Encounters Date Type Department Care Team (Late st Contact Info) Description 09/06/2024 1:00 PM CDT Appointment Department of Radiology, [facility] in [place], [place] [address] [place] [address] Marv Myrick M.D., M.P.H. [address] [place] [address] 09/07/2024 11:10 AM CDT Appointment Department of Laboratory Medicine and Pathology, [facility] in [place], [place] [address] [place] [address] Marv Myrick M.D., M.P.H. [address] [place] [phone] 09/07/2024 1:30 PM CDT Office Visit Division of Gastroenterology in [place], [place] [address] [place] [address] Marv Myrick M.D., M.P.H. [address] [place] [phone] documented as of this encounter Visit Diagnoses Not on filedocumented in this encounter Care Teams Subassemblies Wirer Relationship Specialty Start Date End Date Elsewhere, Pcp PCP - General Internal Medicine 08/19/21 documented as of this encounter
--- OUTSIDE RECORDS SUMMARY | 2024-09-02 03:30 | XMS_ITS | Encounter Summary ---
Author Organization [facility] Address [address] [place] [address] Care Team Providers Care Curb Builder Name Role Phone Elsewhere, Pcp Primary Care Provider Unavailabl e Encounter Details Date Type Department Care Team (Latest Contact Info) Description 08/22/2024 Results Follow-Up Division of Gastroenterology in [place], [place] [address] [place] [address] Marv Myrick M.D., M.P.H. [address] [place] [address] Basic Metabolic Panel Social History Tobacco Use Types Packs/Day Years Used Date Smoking Tobacco: Never Smokeless Tobacco: Never Alcohol Use Standard Drinks/Week Comments Not Currently 0 (1 standard drink = 0.6 oz pur e alcohol) Don t drink [facility] Utilities Answer Date Recorded In [...] How often do you attend chur or gnosticist services? More than 4 times [...] and heating? Not hard at all 04/27/2022 [facility] of Occupat ional Health - Occupational Stress [...] living situation today? I have a [facility] place to live 08/03/2024 Education Answer Date Recorded What is the highest level of school you have completed or the highest degree you have received? Bachelor's degree (e.g., BA, AB, BS) 11/11/2020 Sex and Gender Information Value Date Recorded Sex Assigned at Male 02/12/2021 6:18 PM STORAGE ARCHITECT Legal Sex Male 9:16 PM STORAGE ARCHITECT Gender Identity Male 11/11/2020 11:30 AM CDT Sexual Orientation Straight 11/11/2020 11 :30 AM CDT documented as of this encounter Miscellaneous Notes * Result Encounter Note - Marv Myrick M.D., M.P.H. - 08/22/2024 4:00 PM CDT Hi Mr. Jennings Your repeat blood tests showed satisfactory results. You can continue taking two furosemide pills aday and two spironolactone pills daily Dr. Chandrika Lake documented in this encounter Plan of Treatment Upcoming Encounters Date Type Department Care Team (Late st Contact Info) Description 09/06/2024 1:00 PM CDT Appointment Department of Radiology, [facility] in [place], [place] [address] [place] [phone] Marv Myrick M.D., M.P.H. [address] [place] [phone] 09/07/2024 11:10 AM CDT Appointment Department of Laboratory Medicine and Pathology, [facility] in [place], [place] [address] [place] [phone] Marv Myrick M.D., M.P.H. [address] [place] [phone] 09/07/2024 1:30 PM CDT Office Visit Division of Gastroenterology in [place], [place] [address] [place] [phone] Marv Myrick M.D., M.P.H. [address] [place] [phone] documented as of this encounter Visit Diagnoses Not on filedocumented in this encounter Care Teams Curb Builder Relationship Specialty Start Date End Date Elsewhere, Pcp PCP - General Internal Medicine 08/19/21 documented as of this encounter
--- OUTSIDE RECORDS SUMMARY | 2024-09-02 03:30 | XMS_ITS | Encounter Summary ---
Author Organization [facility] Address [address] [place] [address] Care Team Providers Care Junior Php Developer Name Role Phone Elsewhere, Pcp Primary Care Provider Unavailabl e Reason for Visit * Reason Comments Med Refill Encounter Details Date Type Department Care Team (Late st Contact Info) Description 08/23/2024 Refill Division of Gastroenterology in [place], [place] [address] [place] [phone] Marv Myrick M.D., M.P.H. [address] [place] [phone] Med Refill Social History Tobacco Use Types Packs/Day Years Used Date Smoking Tobacco: Never Smokeless Tobacco: Never Alcohol Use Standard Drinks/Week Comments Not Currently 0 (1 standard drink = 0.6 oz pur e alcohol) Don t drink [facility] Utilities Answer Date Recorded In the [...] How often do you attend chur or quaker services? More than 4 times [...] and heating? Not hard at all 04/27/2022 [facility] of Occupat ional Health - Occupational Stress [...] your living situation today? I have a [facility] place to live 08/03/2024 Education Answer Date Recorded What is the highest level of school you have completed or the highest degree you have received? Bachelor's degree (e.g., BA, AB, BS) 11/11/2020 Sex and Gender Information Value Date Recorded Sex Assigned at Male 02/12/2021 6:18 PM FEATHER BALER Legal Sex Male 9:16 PM FEATHER BALER Gender Identity Male 11/11/2020 11:30 AM CDT Sexual Orientation Straight 11/11/2020 11 :30 AM CDT documented as of this encounter Plan of Treatment Upcoming Encounters Date Type Department Care Team (Late st Contact Info) Description 09/06/2024 1:00 PM CDT Appointment Department of Radiology, [facility], in [place], [place] [address] [place] [address] Marv Myrick M.D., M.P.H. [address] [place] [address] 09/07/2024 11:10 AM CDT Appointment Department of Laboratory Medicine and Pathology, [facility], in [place], [place] [address] [place] [address] Marv Myrick M.D., M.P.H. [address] [place] [address] 09/07/2024 1:30 PM CDT Office Visit Division of Gastroenterology in [place], [place] [address] [place] [address] Marv Myrick M.D., M.P.H. [address] [place] [phone] documented as of this encounter Visit Diagnoses Not on filedocumented in this encounter Care Teams Junior Php Developer Relationship Specialty Start Date End Date Elsewhere, Pcp PCP - General Internal Medicine 08/19/21 documented as of this encounter
--- OUTSIDE RECORDS SUMMARY | 2024-09-02 03:30 | XMS_ITS | Encounter Summary ---
Author Organization [facility] Address [address] [place] [address] Care Team Providers Care Coordinate Measuring Machine Operator Name Role Phone Elsewhere, Pcp Primary Care Provider Unavailabl e Encounter Details Date Type Department Care Team (Late st Contact Info) Description 01/21/2016 Historical Ophthalmology RST OPH Jemal Almeida M.D. [address] [place] [address] Social History Tobacco Use Types Packs/Day Years Used Date Smoking Tobacco: Never Assessed Sex and Gender Information Value Date Recorded Sex Assigned at Male 02/12/2021 6:18 PM IT SUPPORT TECHNICIAN Legal Sex Male 9:16 PM IT SUPPORT TECHNICIAN Gender Identity Male 11/11/2020 11:30 AM [...] the right CDM Reports - EYEGEN Id: [id number] Status: Fnl documented in this encounter Plan of Treatment Upcoming Encounters Date Type Department Care Team (Late st Contact Info) Description 09/06/2024 1:00 PM CDT Appointment Department of Radiology, [facility] in [place], [place] [address] [place] [phone] Marv Myrick M.D., M.P.H. [address] [place] [phone] 09/07/2024 11:10 AM CDT Appointment Department of Laboratory Medicine and Pathology, [facility] in [place], [place] [address] [place] [phone] Marv Myrick M.D., M.P.H. [address] [place] [phone] 09/07/2024 1:30 PM CDT Office Visit Division of Gastroenterology in [place], [place] [address] [place] [phone] Marv Myrick M.D., M.P.H. [address] [place] [phone] documented as of this encounter Visit Diagnoses Not on filedocumented in this encounter Additional Health Concerns Infection Onset Date Last Indicated Resolved Time COVID19 Pending 02/11/2021 02/11/2021 02/11/2021 3 :10 PM IT SUPPORT TECHNICIAN COVID19 Pending 04/14/2021 04/14/2021 04/14/2021 2 :15 PM IT SUPPORT TECHNICIAN COVID19 Pending 04/14/2021 04/15/2021 04/15/2021 1 0:43 PM IT SUPPORT TECHNICIAN COVID19 Pending 08/05/2021 08/05/2021 08/05/2021 4 :09 PM CDT COVID19 Pending 10/23/2021 10/23/2021 10/23/2021 3 :08 PM CDT COVID19 Pending 09/09/2023 09/10/2023 09/10/2023 2 :15 AM CDT COVID19 Pending 08/02/2024 08/02/2024 08/02/2024 6 :41 PM CDT documented as of this encounter Care Teams Coordinate Measuring Machine Operator Relationship Specialty Start Date End Date Elsewhere, Pcp PCP - General Internal Medicine 08/19/21 documented as of this encounter
--- OUTSIDE RECORDS SUMMARY | 2024-09-02 03:30 | XMS_ITS | Encounter Summary ---
Author Organization [facility] Address [address] [place] [address] Care Team Providers Care Fish Fryer Name Role Phone Elsewhere, Pcp Primary Care Provider Unavailabl e Reason for Visit * Reason Onset Date Comments Remote Patient Monitoring 08/30/2024 Direct Connect Encounter Details Date Type Department Care Team (Late st Contact Info) Description 08/30/2024 Remote Monitoring Remote Patient Monitoring [facility] [address] [place] [address] Melissa Rose Remote Patient Monitoring ( Direct Connect) Social History Tobacco Use Types Packs/Day Years Used Date Smoking Tobacco: Never Smokeless Tobacco: Never Alcohol Use Standard Drinks/Week Comments Not Currently 0 (1 standard drink = 0.6 oz pur e alcohol) Don t drink [facility] Utilities Answer Date Recorded In the past 12 months has [employer], gas, oil, or water [employer] threatened to shut off services in [...] often do you attend chur ch or jainism services? More than 4 times per year 04/27/2022 Do you belong to any clubs o r organizations such as christianity groups, unions, fraternal or athletic groups, or [...] all 04/27/2022 [facility] of Occupat ionut Health - Occupational Stress Questionnaire Answer Date [...] your living situation today? I have a [facility] place to live 08/29/2024 Education Answer Date Recorded What is the highest level of school you have completed or the highest degree you have received? 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 [address] [place] [phone] 09/07/2024 11:10 AM CDT Appointment Department of Laboratory Medicine and Pathology, [facility] in [place], [place] [address] [place] [phone] Marv Myrick M.D., M.P.H. [address] [place] [address] 09/07/2024 1:30 PM CDT Office Visit Division of Gastroenterology in [place], [place] [address] [place] [address] Marv Myrick M.D., M.P.H. [address] [place] [address] documented as of this encounter Visit Diagnoses Not on filedocumented in this encounter Care Teams Fish Fryer Relationship Specialty Start Date End Date Elsewhere, Pcp PCP - General Internal Medicine 08/19/21 documented as of this encounter
--- OUTSIDE RECORDS SUMMARY | 2024-09-02 03:30 | XMS_ITS | Data Portability ---
Author Organization [facility], [facility] Address [address] [place] [address] Care Team Providers Care Plugger Worker Name Role Phone ANALIDeeptiTATYANA MELGAR Primary Care Provider Assessment Encounter Date Assessment Date Assessment LastModified by Organization Details LastModified Time 06/24/2023 06/24/2023 72 year old male with scrotal swelling Not available 06/24/2023 23:31:56 Plan of Treatment [...] Name Description Value Unit Range Abnormal Flag Note LastModifiedBy Organization Detail LastModifiedTime 06/22/19 24 10/24/2022 US, scrot um No observ ation record ed. Not Available 2023 23:24:02 06/22/19 24 10/30/2022 CT, abdom en + pelvi s, w/ contr ast No observ ation record ed. Not Available 2023 23:24:02 Result Notes None recorded. Procedures Surgical History Date Name Laterality Status Provider Name and Address Organization Details Recorded Time 03/23/19 22 total replacement of hip completed Radha Bella [facility] 06/24/2023 11:54:12 03/23/19 09 procedure on shoulder completed Radha Bella [facility] 06/24/2023 11:54:06 Appendectomy completed Radha Bella [facility] 06/24/2023 11:54:23 Imaging Results None recorded. Procedure Notes None recorded. Medical Equipment None Reported. Allergies Allergen ID Allergen Name Allergen Category Reaction Reaction Severity Criticality Documentation Date Start Date Code Code System Note Provider Name and Address Organization Details Recorded Time 365025 Tylenol medicatio n Not available Not available Not available 06/24/202321588 3 RxNorm Radha segundo silvia [facility] 11:51:59 829118 Celebrex medicatio n Not available Not available Not available 06/24/2023 12523 7 RxNorm Radha Doloresquis t silvia, [facility] 11:52:05 Medications Name Sig Start Date [...] Updated DateTime 06/24/2023 172.72 cm 21.3 kg/m2 83765.93 g Radha Bella [facility] 06/24/2023 11:47:54 Social History Question Answer Notes LastModified by Organizat gdgt Details LastModified Time Tobacco Smoking Status Never Smoker Radha vega [facility] 06/24/2023 11:53:39 What Is Your Level Of Caffeine Consumption? None Information not available 06/24/2023 What Was The Date Of Your Most Recent Tobacco Screening? 06/24/2023 Information not available 06/24/2023 Sex: Unknown Functional Status Question Answer Note LastModified by [employer] Details LastModified Time Do you use any illicit or recreational drugs? No Information not available 06/24/2023 Do you or have you ever used any other forms of tobacco or nicotine? No Information not available 06/24/2023 What is your level of alcohol consumption? None Information not available 06/24/2023 Mental Status None recorded. Family History Relationship Description Onset Age of this Age Resolved Age Notes LastModified by Organization Details LastModified Time Father No current problems or disability rstromquist Not available 05/2023 11:53:29 Mother No current problems or disability rstromquist Not available 05/2023 11:53:29 Medical History Condition Response Sexually Transmitted Infection N Diabetes Y Bleeding Disorder N Other N High Blood Pressure N Kidney Stones N Cancer N Lung Disease N Depression N High Cholesterol Y GERD/Acid Reflux Y Heart Disease N Immunizations Vaccine Type Date Status Note Provider Nam e and Address Organization Details Recorded Time Influenza, high-dose, quadrivalent, PF 11/21/2021 completed Radha vega [facility] 06/24/2023 11:47:59 Influenza, adjuvanted, quadrivalent, PF 12/24/2020 brody vega [facility] 06/24/2023 11:47:59 COVID-19, mRNA, LNP-S, PF, 100 mcg/0.5mL dose or 50 mcg/0.25mL dose 05/23/2020 completed Radha vega, [facility] 06/24/2023 11:47:59 COVID-19, mRNA, LNP-S, PF, 100 mcg/0.5mL dose or 50 mcg/0.25mL dose 06/22/2020 completed Radha vega, [facility] 06/24/2023 11:47:59 COVID-19, mRNA, LNP-S, PF, 100 mcg/0.5mL dose or 50 mcg/0.25mL dose 09/18/2021 completed Radha vega, [facility] 06/24/2023 11:47:59 COVID-19, mRNA, LNP-S, PF, 100 mcg/0.5mL dose or 50 mcg/0.25mL dose 03/20/2021 completed Radha vega, [facility] 06/24/2023 11:47:59 Influenza, split virus, trivalent, PF 12/22/2007 completed Radha vega, [facility] 06/24/2023 11:47:59 Past Encounters Encounter ID Performer Location Encounter Start Date Encounter Closed Date Diagnosis/Indication Diagnosis SNOMED-CT Code Diagnosis ICD10 Code Diagnosis Note [id number] Emir Leo MD [facility] [address] [place] [address] 06/24/2023 11:16:24 06/26/2023 08:55:19 Swelling of scrotum 506928513 N50.89 - Exam is most consistent with a hydrocele but scrotal US and CT A/P less clear. This could represente d an encrusted hydrocele thus accounting for the echogenici ty.- I would consider a scrotal exploratio n at the time of umbillical hernia repair, if Dr. Cha intends to operate. Pain in scrotum N50.82 - As above Umbilical hernia 8702843 07 K42.9 - Seeing Dr. Cha next week Health Concerns Section Related Observation LastModified by Organization Detai ls LastModified Time None Recorded Concern Status LastModified by Organization Details LastModified Time None Recorded Advance Directives Directive None Recorded Payers Insurance Date Sequence Insurance Name Policy Number Policy Bello Covered Member ID Bello Member ID Guarantor Name 06/29/2023 2 [place] [id number] Niko Jennings [id number] Niko Jennings 06/29/2023 1 [place] [employer] [facility] Niko Jennings [id number] Niko Jennings Notes Date Note Type Note Provider Name and Address Organization Details Recorded Time 06/24/2023 text/html Mr. Jennings is a 72 yoM with a complex medical history who is referred to me by his PCP, Dr. Tatyana Virk, regarding chronic scrotal swelling. Patient was worked up at [facility] where he underwent a dorsal slit [...] this location. Patient seeing Dr. Cha of [facility] General Surgery next week for consultation on umbilical hernia. Emir Leo MD [address] [place] [address],[address], [place], [address], [facility] 06/24/2023 23:35:22
--- OUTSIDE RECORDS SUMMARY | 2024-09-02 03:30 | XMS_ITS | Encounter Summary ---
Author Organization [facility] Address [address] [place] [address] Care Team Providers Care Transition Social Worker Name Role Phone Elsewhere, Pcp Primary Care Provider Unavailabl e Reason for Referral * Outpatient (Routine) - Closed Specialty Diagnoses / Procedures Referred By Contact Referred To Contact Gastroenterology and Hepatology Yanna Zarate M.B.B.S. [address] [place] [phone] Phone: tel: fax: Marv Myrick M.D., M.P.H. [address] [place] [phone] Phone: tel:[phone] fax:[phone] Referral ID Status Reason Start Date Expiration Date Visits Re quested Visits Authorized [id number] Closed 08/11/2024 02/10/2026 1 1 Encounter Details Date Type Department Care Team (Latest Contact Info) Description 08/10/2024 Clinical Communication Division of Gastroenterology in [place], [place] [address] [place] [phone] Yanna Zarate M.B.B.S. [address] [place] [address] Social History Tobacco Use Types Packs/Day Years Used Date Smoking Tobacco: Never Smokeless Tobacco: Never Alcohol Use Standard Drinks/Week Comments Not Currently 0 (1 standard drink = 0.6 oz pur e alcohol) Don t drink [facility] Utilities Answer Date Recorded In the past 12 months has e [employer], gas, oil, or water company threatened to [...] week 04/27/2022 How often do you attend [facility] health system or yarsanism services? More than 4 times [...] and heating? Not hard at all 04/27/2022 [facility] of Occupat ional Health - Occupational [...] your living situation today? [facility] 08/03/2024 Education Answer Date Recorded What is the highest level of school you have completed or the highest degree you have received? 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 [address] [place] [phone] 09/07/2024 11:10 AM CDT Appointment Department of Laboratory Medicine and Pathology, [facility] in [place], [place] [address] [place] [phone] Marv Myrick M.D., M.P.H. [address] [place] [phone] 09/07/2024 1:30 PM CDT Office Visit Division of Gastroenterology in [place], [place] [address] [place] [phone] Marv Myrick M.D., M.P.H. [address] [place] [phone] Scheduled Referrals Name Type Priority Associated Diagnoses Order Schedule Gastroenterology and Hepatology office visit (clinic) Outpatient Referral Routine Expected: 08/17/2024, Expires: 11/10/2025 documented as of this encounter Visit Diagnoses Not on filedocumented in this encounter Care Teams Transition Social Worker Relationship Specialty Start Date End Date Elsewhere, Pcp PCP - General Internal Medicine 08/19/21 documented as of this encounter
--- OUTSIDE RECORDS SUMMARY | 2024-09-02 03:30 | XMS_ITS | Data Portability ---
Author Organization [facility], [facility] Address [address] [place] [address] Care Team Providers Care Hat Lining Paster Name Role Phone ANALIDeeptiTATYANA MELGAR Primary Care Provider [phone] Assessment Encounter Date Assessment Date Assessment LastModified [...] total replacement of hip completed Radha Bella [facility] 06/24/2023 11:54:12 03/23/19 09 procedure on shoulder completed Radha Bella [facility] 06/24/2023 11:54:06 Appendectomy completed Radha Bella [facility] 06/24/2023 11:54:23 Imaging Results None recorded. Procedure Notes None recorded. Medical Equipment None Reported. Allergies Allergen ID Allergen Name Allergen Category Reaction Reaction Severity Criticality Documentation Date Start Date Code Code System Note Provider Name and Address Organization Details Recorded Time 672468 Tylenol medicatio n Not available Not available Not available 06/24/202372241 3 RxNorm Radha segundo silvia [facility] 11:51:59 412491 Celebrex medicatio n Not available Not available Not available 06/24/2023 09678 7 RxNorm Radha Doloresquis t silvia, [facility] 11:52:05 Medications Name Sig Start [...] Updated DateTime 06/24/2023 172.72 cm 21.3 kg/m2 21508.93 g Radha Bella [facility] 06/24/2023 11:47:54 Social History Question Answer Notes LastModified by Organizat [facility] Details LastModified Time Tobacco Smoking Status Never Smoker Radha vega [facility] 06/24/2023 11:53:39 What Is Your Level Of Caffeine Consumption? None Information not available 06/24/2023 What Was The Date Of Your Most Recent Tobacco Screening? 06/24/2023 Information not available 06/24/2023 Sex: Unknown Functional Status Question Answer Note LastModified by [employer] Details LastModified Time Do you use any [...] high-dose, quadrivalent, PF 11/21/2021 completed Radha vega [facility] 06/24/2023 11:47:59 Influenza, adjuvanted, quadrivalent, PF 12/24/2020 brody vega [facility] 06/24/2023 11:47:59 COVID-19, mRNA, LNP-S, PF, 100 mcg/0.5mL dose or 50 mcg/0.25mL dose 05/23/2020 completed Radha vega, [facility] 06/24/2023 11:47:59 COVID-19, mRNA, LNP-S, PF, 100 mcg/0.5mL dose or 50 mcg/0.25mL dose 06/22/2020 completed Radha vega, [facility] 06/24/2023 11:47:59 COVID-19, mRNA, LNP-S, PF, 100 mcg/0.5mL dose or 50 mcg/0.25mL dose 09/18/2021 completed Radha vega, [facility] 06/24/2023 11:47:59 COVID-19, mRNA, LNP-S, PF, 100 mcg/0.5mL dose or 50 mcg/0.25mL dose 03/20/2021 completed Radha vega, [facility] 06/24/2023 11:47:59 Influenza, split virus, trivalent, PF 12/22/2007 completed Radha vega, [facility] 06/24/2023 11:47:59 Past Encounters Encounter ID Performer Location Encounter Start Date Encounter Closed Date Diagnosis/Indication Diagnosis SNOMED-CT Code Diagnosis ICD10 Code Diagnosis Note [id number] Emir Leo MD [facility] [address] [place] [address] 06/24/2023 11:16:24 06/26/2023 08:55:19 Swelling of scrotum 088972871 N50.89 - Exam is most consistent with a hydrocele but scrotal US and CT A/P less clear. This could represente d an encrusted hydrocele thus accounting for the echogenici ty.- I would consider a scrotal exploratio n at the time of umbillical hernia repair, if Dr. Cha intends to operate. Pain in scrotum N50.82 - As above Umbilical hernia 6772820 07 K42.9 - Seeing Dr. Cha next week Health Concerns Section Related Observation LastModified by Organization Detai ls LastModified Time None Recorded Concern Status LastModified by Organization Details LastModified Time None Recorded Advance Directives Directive None Recorded Payers Insurance Date Sequence Insurance Name Policy Number Policy Bello Covered Member ID Bello Member ID Guarantor Name 06/29/2023 2 [place] [id number] Niko Jennings [id number] Niko Jennings 06/29/2023 1 [place] [email or web address] [facility] Niko Jennings [id number] Niko Jennings Notes Date Note Type Note Provider Name and Address Organization Details Recorded Time 06/24/2023 text/html Mr. Jennings is a 72 yoM with a complex medical history who is referred to me by his PCP, Dr. Tatyana Virk, regarding chronic scrotal swelling. Patient was worked up at [facility] where he underwent a dorsal slit [...] this location. Patient seeing Dr. Cha of [facility] General Surgery next week for consultation on umbilical hernia. Emir Leo MD [address] [place] [address],[address], [place], [address], [facility] 06/24/2023 23:35:22
--- NOTE | 2024-09-02 04:44 | ED.AMS ---
HPI - Altered Mental Status General Date Seen: 09/02/24 Chief Complaint: Altered Mental Status Stated Complaint: weakness Time Seen by Provider: 09/02/24 03:43 Source: patient and family Mode of arrival: EMS Limitations: altered mental status History of Present Illness HPI narrative: Patient is a 73-year-old male with multiple medical problems including autoimmune hepatitis with cirrhosis, hypertension, hyperlipidemia, type 2 diabetes who is brought in by EMS with worsening confusion. He is admitted to [facility] 08/02/2024 through 08/05/2024 with weakness and elevated lactate. No source of infection was found. He was admitted again this week from 08/29/2024 through 08/30/2024 with weakness and confusion. During that brief stay his mental status improved with IV hydration. His Lasix dose was dropped down to 20 mg once daily for home b.i.d. and his spironolactone dose was dropped down to 100 mg daily from b.i.d.. He is scheduled to see [facility] tomorrow in follow-up as his PCP was unavailable. He started to get confused yesterday and this got worse today. He has been wandering around in his garage. He was frustrated earlier when he could not operate is cellphone properly. Tonight he got stuck in a walk-in closet as he tried to return to bed. His could get him to come out of the closet and paramedics were called. He was not aggressive. He has had no fall or head injury. He is reportedly eating and drinking okay. He has been compliant with his medication. His ammonia level was normal during his last hospitalization. No fevers or chills. Related Data Home Medications ?Medication ?Instructions ?Recorded ?Confirmed cholecalciferol (vitamin D3) 125 125 mcg PO DAILY 05/16/23 09/02/24 mcg (5,000 unit) capsule empagliflozin 10 mg tablet 10 mg PO DAILY 05/16/23 09/02/24 (Jardiance) ferrous gluconate 324 mg (38 mg 324 mg PO DAILY 05/16/23 09/02/24 iron) tablet furosemide 20 mg tablet 20 mg PO DAILY 05/16/23 09/02/24 metformin 500 mg tablet,extended 500 mg PO BID 05/16/23 09/02/24 release 24 hr omeprazole 20 mg capsule,delayed 20 mg PO BID 05/16/23 09/02/24 release rosuvastatin 20 mg tablet 20 mg PO QPM 05/16/23 09/02/24 spironolactone 100 mg tablet 100 mg PO BID 09/02/24 09/02/24 Allergies Allergy/AdvReac Type Severity Reaction Status Date / Time acetaminophen (From Tylenol) Allergy Severe Autoimmune Verified 09/02/24 05:20 Liver Disease celecoxib (From Celebrex) AdvReac Severe Acute Verified 09/02/24 05:20 Renal Failure NSAIDS (Non-Steroidal AdvReac Severe Acute Verified 09/02/24 05:20 Anti-Inflamma Renal Failure Review of Systems Narrative: Review of systems is unobtainable from the patient. He has general weakness. He has a recurrent left inguinal hernia with no plans to repair that. It was just fixed eye year ago at [facility]. He has GI follow-up scheduled for 09/07/2024 at [facility]. [facility] Medical History (Updated 09/02/24 @ 05:59 by Quentin Farrell MD) History of DVT (deep vein thrombosis) ?Z86.718 - Personal history of other venous thrombosis and embolism (ICD-10) Hyperlipidemia ?E78.5 - Hyperlipidemia, unspecified (ICD-10) Type 2 diabetes mellitus, without long-term current use of insulin ?E11.9 - Type 2 diabetes mellitus without complications (ICD-10) GERD (gastroesophageal reflux disease) ?K21.9 - Gastro-esophageal reflux disease without esophagitis (ICD-10) Rheumatoid arthritis ?M06.9 - Rheumatoid arthritis, unspecified (ICD-10) Primary hypertension ?I10 - Essential (primary) hypertension (ICD-10) Autoimmune hepatitis ?K75.4 - Autoimmune hepatitis (ICD-10) Surgical History (Updated 09/02/24 @ 05:55 by Quentin Farrell MD) History of left inguinal hernia repair ?Z98.890 - Other specified postprocedural states (ICD-10) ?Z87.19 - Personal history of other diseases of the digestive system (ICD-10) Social History (Updated 09/02/24 @ 05:57 by Quentin Farrell MD) Narrative: , nonsmoker, retired Smoking Status: Never smoker Do you use any of these nicotine containing products: None Second hand tobacco smoke exposure: No How often do you have a drink containing alcohol: never How often do you have six or more drinks on one occasion: Never AUDIT-C Alcohol total score: 0 Non-prescribed substance use: denies use service: No Exam Narrative: Exam Narrative: Vitals noted. He is thin and frail. He is confused and does not provide any meaningful history. All history is obtained from his . HEENT: Conjunctiva clear. Tympanic membranes are pearly white bilaterally. Posterior pharynx is clear without erythema or exudate. Neck is supple without adenopathy, thyromegaly, carotid bruit. Lungs: Clear to auscultation in all [place]. No wheezes, rales, rhonchi. Heart: Regular rate and rhythm without murmur. Abdomen: Soft and nontender. No guarding, rigidity, rebound. Bowel sounds are normal. No palpable masses. Extremities: No cyanosis or edema. Good distal pulses. Skin: No abnormalities noted of the exposed skin. Neurologic: He moves all extremities normally. He is disoriented to person place and time. Const: Vital Signs, click to edit/add: Vital Signs - 24 hr 09/02/24 03:29 Temperature 97.5 F L Pulse Rate [Pulse Oximeter] 66 Respiratory Rate 16 Blood Pressure [Ri ght Upper Arm] 109/76 Pulse Oximetry 99 Oxygen Delivery Me thod Room Air Course Course ED Course: Patient seen and examined. EKG shows normal sinus rhythm with a rate of 73. No acute ST or T-wave changes noted. Labs are drawn. Reevaluation(s) Reevaluation #1: Lactate is elevated at 4.4. In reviewing his old chart this apparently is chronic. He does not appear septic. I did not repeat his head CT or drug screen as these were just done a couple of days ago and I have no reason to believe the results will be different. We will start with normal saline at 500 mL/hour. I question the safety of his metformin with his age, renal issues, elevated lactate, etc.. His presentation tonight is almost exactly what he had four days ago. Reevaluation #2: CBC is normal other than a platelet count of 55,000. Basic metabolic panel is normal other than a sodium of 132. His LFTs show an AST of 59 and an ALT of 42. Bili is normal. Alk-phos is 235. His BNP is 115. UA shows 2+ glucose but is otherwise unremarkable. Triple swab is negative. Ammonia level is still pending. His is in agreement that he could be admitted here and does not need to be transferred to [facility]. Reevaluation #3: Accepted for admission by Dr. Dye. Vital Signs Vital signs: Initial Vital Signs Temperature 97.5 F L 09/02/24 03:29 Temperature Source Temporal Artery Scan 09/02/24 03:29 Pulse Rate 66 09/02/24 03:29 Respiratory Rate 16 09/02/24 03:29 Blood Pressure 109/76 09/02/24 03:29 Blood Pressure Mean 87 09/02/24 03:29 Blood Pressure Position Semi-Fowlers 09/02/24 03:29 Pulse Oximetry 99 09/02/24 03:29 Oxygen Delivery Method Room Air 09/02/24 03:29 Vital Signs Temperature 97.5 F L 09/02/24 03:29 Pulse Rate 66 09/02/24 03:29 Respiratory Rate 16 09/02/24 03:29 Blood Pressure 109/76 09/02/24 03:29 Pulse Oximetry 99 09/02/24 03:29 Oxygen Delivery Method Room Air 09/02/24 03:29 Temperature 97.5 F L 09/02/24 03:29 Pulse Rate 66 09/02/24 03:29 Respiratory Rate 16 09/02/24 03:29 Blood Pressure 109/76 09/02/24 03:29 Pulse Oximetry 99 09/02/24 03:29 Oxygen Delivery Method Room Air 09/02/24 03:29 Medications Administered Medications: Discontinued Medications Generic Name Dose Route Start Last Admin Trade Name Freq PRN Reason Stop Dose Admin Sodium Chloride 1,000 mls @ 500 mls/hr 09/02/24 04:55 09/02/24 05:03 0.9 % Sodium Chloride 1000 Ml IV 09/02/24 06:54 500 mls/hr .Q2H XU Administration MDM - Altered Mental Status Lab Data Labs: Lab Results 09/02/24 09/02/24 09/02/24 Range/Units 03:30 03:32 04:30 WBC 4.25 L (4.50-11.00) K/uL RBC 3.93 L (4.30-5.90) m/uL Hgb 13.1 L (13.5-17.5) gm/dL Hct 38.1 (37.0-53.0) % MCV 97 (80-100) fL MCH 33 (26-34) pg MCHC 34 (32-36) gm/dL RDW Coeff of Arelis 14.5 (11.5-15.5) % Plt Count 55 L (140-440) K/uL Neut % (Auto) 72.7 H (42.0-72.0) % Lymph % (Auto) 11.5 L (20-44) % [place] % (Auto) 10.1 (0.0-11.0) % Eos % (Auto) 4.5 (0.0-7.0) % Baso % (Auto) 0.7 (0.0-3.0) % Neut # (Auto) 3.10 (1.7-7.0) K/uL Lymph # (Auto) 0.50 L (0.90-2.90) K/uL [place] # (Auto) 0.40 (0.00-0.90) K/UL Eos # (Auto) 0.20 (0.00-0.50) K/uL Baso # (Auto) 0.00 (0.00-0.30) K/uL Abs Immat Gran (auto) 0.00 (0.00-0.30) K/uL Imm/Tot Granulo (auto) 0.5 % Sodium 132 L (135-149) mmol/L Potassium 4.8 (3.6-5.1) mmol/L Chloride 102 (96-114) mmol/L Carbon Dioxide 21 (20-32) mmol/L Anion Gap 9 (7-15) mEq/L BUN 24 (7-30) mg/dL Creatinine 1.4 (0.5-1.5) mg/dL Estimated Creat Clear 40.95 Estimated GFR 52 ml/min Glucose 162 H (60-115) mg/dL Lactate 4.4 H* (0.5-1.9) mmol/L Calcium 9.6 (8.4-10.6) mg/dL Total Bilirubin 1.3 (0.1-1.5) mg/dL AST 59 H (12-35) U/L ALT 42 (4-50) U/L Alkaline Phosphatase 235 H (40-150) U/L Ammonia (13.1-30.0) umol/L NT-Pro-B Natriuret Pep 115 (See Note) pg/mL Total Protein 8.5 H (6.0-8.3) g/dL Albumin 3.7 (3.3-5.0) g/dL Urine Color Yellow (Yellow) Urine Appearance Clear (Clear) Urine pH 6.5 (5.0-8.5) Ur Specific [place] 1.010 (1.000-1.030) Urine Protein Negative (Negative) Urine Glucose (UA) 2+ A (Negative) Urine Ketones Negative (Negative) Urine Blood Trace-intact A (Negative) Urine Nitrite Negative (Negative) Urine Bilirubin Negative (Negative) Urine Urobilinogen 1.0 (0.2-1.0) Ur Leukocyte Esterase Trace A (Negative) Urine RBC 0-2 (0-2) Urine WBC 2-5 (0-5) Ur Squamous Epith Cells Few (None-Few) Amorphous Sediment Few A (None) Urine Bacteria None (None) SARS-CoV-2 (PCR) Negative SARS-CoV-2 (Negative) Influenza Type A (PCR) Negative PCR FLU A (Negative) Influenza Type B (PCR) Negative PCR FLU B (Negative) RSV (PCR) Negative PCR RSV (Negative) 09/02/24 Range/Units 06:40 WBC (4.50-11.00) K/uL RBC (4.30-5.90) m/uL Hgb (13.5-17.5) gm/dL Hct (37.0-53.0) % MCV (80-100) fL MCH (26-34) pg MCHC (32-36) gm/dL RDW Coeff of Arelis (11.5-15.5) % Plt Count (140-440) K/uL Neut % (Auto) (42.0-72.0) % Lymph % (Auto) (20-44) % [place] % (Auto) (0.0-11.0) % Eos % (Auto) (0.0-7.0) % Baso % (Auto) (0.0-3.0) % Neut # (Auto) (1.7-7.0) K/uL Lymph # (Auto) (0.90-2.90) K/uL [place] # (Auto) (0.00-0.90) K/UL Eos # (Auto) (0.00-0.50) K/uL Baso # (Auto) (0.00-0.30) K/uL Abs Immat Gran (auto) (0.00-0.30) K/uL Imm/Tot Granulo (auto) % Sodium (135-149) mmol/L Potassium (3.6-5.1) mmol/L Chloride (96-114) mmol/L Carbon Dioxide (20-32) mmol/L Anion Gap (7-15) mEq/L BUN (7-30) mg/dL Creatinine (0.5-1.5) mg/dL Estimated Creat Clear Estimated GFR ml/min Glucose (60-115) mg/dL Lactate (0.5-1.9) mmol/L Calcium (8.4-10.6) mg/dL Total Bilirubin (0.1-1.5) mg/dL AST (12-35) U/L ALT (4-50) U/L Alkaline Phosphatase (40-150) U/L Ammonia 95.2 H (13.1-30.0) umol/L NT-Pro-B Natriuret Pep (See Note) pg/mL Total Protein (6.0-8.3) g/dL Albumin (3.3-5.0) g/dL Urine Color (Yellow) Urine Appearance (Clear) Urine pH (5.0-8.5) Ur Specific [place] (1.000-1.030) Urine Protein (Negative) Urine Glucose (UA) (Negative) Urine Ketones (Negative) Urine Blood (Negative) Urine Nitrite (Negative) Urine Bilirubin (Negative) Urine Urobilinogen (0.2-1.0) Ur Leukocyte Esterase (Negative) Urine RBC (0-2) Urine WBC (0-5) Ur Squamous Epith Cells (None-Few) Amorphous Sediment (None) Urine Bacteria (None) SARS-CoV-2 (PCR) (Negative) Influenza Type A (PCR) (Negative) Influenza Type B (PCR) (Negative) RSV (PCR) (Negative) Discharge Plan Discharge Clinical Impression: Altered mental status, Autoimmune hepatitis Patient Disposition: Admitted As Observation Condition: Improved
[2024-09-02 04:46] LABS: Lactate* 4.4 mmol/L (0.5-1.9)
[2024-09-02 04:53] LABS: Basophils Percent Auto 0.7 % (0.0-3.0); Eosinophils Percent Auto 4.5 % (0.0-7.0); Hematocrit 38.1 % (37.0-53.0); Hemoglobin* 13.1 gm/dL (13.5-17.5); Immature Granulocytes Pct Auto 0.5 %; Lymphocytes Percent Auto 11.5 % (20-44); Mean Corpuscular HGB Conc 34 gm/dL (32-36); Mean Corpuscular Hemoglobin 33 pg (26-34); Mean Corpuscular Volume 97 fL (80-100); Monocytes Percent Auto 10.1 % (0.0-11.0); Neutrophils Percent Auto 72.7 % (42.0-72.0); Platelet Count* 55 K/uL (140-440); RDW Coefficient of Variation % 14.5 % (11.5-15.5); Red Blood Count 3.93 m/uL (4.30-5.90); White Blood Count* 4.25 K/uL (4.50-11.00)
[2024-09-02 04:54] LABS: Slide Review Reflex No
[2024-09-02] MEDS: 0.9 % SODIUM CHLORIDE 1000 ml 1,000 ML 500 ML IV (05:03)
[2024-09-02 05:05] LABS: Appearance Urine Clear (Clear); Bilirubin Urine Negative (Negative); Blood Urine Trace-intact (Negative); Color Urine Yellow (Yellow); Glucose Urine 2+ (Negative); Ketones Urine Negative (Negative); Leukocyte Esterase Urine Trace (Negative); Nitrite Urine Negative (Negative); Protein Urine Negative (Negative); pH Urine 6.5 (5.0-8.5)
[2024-09-02 05:11] LABS: Amorphous Sediment Urine Few; RBC Urine 0-2 (0-2); Squamous Epithelial Cell Urine Few (None-Few)
[2024-09-02 05:13] LABS: Albumin* 3.7 g/dL (3.3-5.0); Chloride* 102 mmol/L (96-114); Potassium* 4.8 mmol/L (3.6-5.1); Sodium* 132 mmol/L (135-149)
[2024-09-02 05:16] LABS: Alanine Aminotransferase* 42 U/L (4-50); Alkaline Phosphatase* 235 U/L (40-150); Anion Gap 9 mEq/L (7-15); Aspartate Amino Transferase* 59 U/L (12-35); Bilirubin Total* 1.3 mg/dL (0.1-1.5); Blood Urea Nitrogen* 24 mg/dL (7-30); Calcium* 9.6 mg/dL (8.4-10.6); Carbon Dioxide* 21 mmol/L (20-32); Creatinine* 1.4 mg/dL (0.5-1.5); Est. Creatinine Clearance* 40.95; Estimated Glomerular Filt Rate 52 ml/min; Glucose* 162 mg/dL (60-115); Total Protein* 8.5 g/dL (6.0-8.3)
[2024-09-02 05:29] LABS: NT Pro B Type NatriureticPept* 115 pg/mL (See Note)
[2024-09-02 05:39] LABS: PCR FLU A Negative PCR FLU A (Negative); PCR FLU B Negative PCR FLU B (Negative); PCR RSV Negative PCR RSV (Negative); SARS PCR* Negative SARS-CoV-2 (Negative)
[2024-09-02 07:06] LABS: Ammonia* 95.2 umol/L (13.1-30.0)
--- NOTE | 2024-09-02 08:31 | CRLHL7_ITS ---
For Patients: As a result of the 21st Century Cures Act, medical imaging exams and procedure reports are released immediately into your electronic medical record. You may view this report before your referring provider. If you have questions, please contact your health care provider. INDICATION: AMS, DECOMPENSATED LIVER FAILURE. TECHNIQUE: CT chest, abdomen and pelvis acquired 69 cc Isovue 370 IV contrast. COMPARISON: CT abdomen pelvis dated 09/26/2023. FINDINGS: Multilevel mild motion degradation, limiting fine detail evaluation. CHEST: Cardiovascular structures: Heart size is normal. Thoracic aorta and main pulmonary artery are normal in caliber. No large central pulmonary embolism. The more distal pulmonary arteries are not well evaluated. Mediastinum and kenn: No mass or adenopathy. Lungs and pleura: Respiratory motion artifact limits fine detail evaluation of the lung parenchyma. No discretely visualized suspicious nodules or infiltrates. Likely mild subpleural reticulation. Chest wall and axilla: No mass or adenopathy. Bones: No suspicious bone lesions. Unremarkable for age. ABDOMEN AND PELVIS: Liver: Cirrhosis. No evident focal lesions. Gallbladder and bile ducts: Diffuse gallbladder wall thickening, which may be reactive secondary to the adjacent hepatocellular disease. No evident cholelithiasis or biliary ductal dilatation. Pancreas: Unremarkable. Spleen: Redemonstrated splenomegaly which measures 15.6 cm in anteroposterior extent, similar to prior. Adrenal glands: Unremarkable. Kidneys: Unremarkable. GI tract: Diffuse circumferential wall thickening of the distal esophagus. Diffuse wall thickening hypodensity of the cecum and ascending colon, compatible with portal colopathy. Bowel is normal in caliber without evidence of obstruction. Vascular structures: Unremarkable. Lymph nodes: Unremarkable. Peritoneum/Retroperitoneum/Abdominal Wall: Small fat containing umbilical hernia. No free air. Moderate volume ascites. Pelvic Organs: No discrete abnormalities, though evaluation is limited by artifact from the bilateral total hip arthroplasties. Bones and superficial soft tissues: No acute or suspicious osseous abnormalities. IMPRESSION: 1. Redemonstrated cirrhosis with stigmata of portal hypertension, including moderate volume ascites, and moderate splenomegaly. 2. Otherwise, no acute findings in the chest, abdomen, or pelvis, within the limitations noted above. Please note that all CT scans at this facility use dose modulation, iterative reconstruction, and/or weight-based dosing when appropriate to reduce radiation dose to as low as reasonably achievable. Dictated by Arnoldo Anaya MD @ 09/02/2024 10:57:13 AM (Electronically Signed)
--- NOTE | 2024-09-02 08:31 | CRLHL7_ITS ---
For Patients: As a result of the Century Cures Act, medical imaging exams and procedure reports are released immediately into your electronic medical record. You may view this report before your referring provider. If you have questions, please contact your health care provider. INDICATION: AMS, DECOMPENSATED LIVER FAILURE TECHNIQUE: Non-contrast CT of the head is submitted. COMPARISON: CT brain dated 06/03/2020 FINDINGS: Mild diffuse parenchymal volume loss with commensurate ex vacuo dilatation of the ventricles and sulci. There are mild nonspecific low attenuation white matter changes consistent with chronic microvascular disease. No sign of mass, hemorrhage, or midline shift. The visualized paranasal sinuses and mastoid air cells are essentially clear. The visualized orbits are grossly unremarkable. No evident skull fractures. The parietal outer table is outside the field of view at the vertex. IMPRESSION: No acute intracranial findings. Please note that all CT scans at this facility use dose modulation, iterative reconstruction, and/or weight-based dosing when appropriate to reduce radiation dose to as low as reasonably achievable. Dictated by Arnoldo Anaya MD @ 09/02/2024 10:43:21 AM (Electronically Signed)
[2024-09-02] MEDS: PANTOPRAZOLE SODIUM 40 MG INJ IVP (09:43)
[2024-09-02] MEDS: SODIUM CHLORIDE 0.9 % (FLUSH) 10 ML SYRINGE 5 ML IVF ×2 (09:43→20:39)
[2024-09-02] MEDS: LACTULOSE 20 GM/30 ML PO (10:53)
[2024-09-02] MEDS: FUROSEMIDE 20 MG TABLET PO (10:54)
[2024-09-02] MEDS: SPIRONOLACTONE 100 MG TABLET PO (10:54)
[2024-09-02] MEDS: 0.9 % SODIUM CHLORIDE 1000 ml 1,000 ML 125 ML IV (10:55)
[2024-09-02] MEDS: INSULIN ASPART 100 UNIT/ML SUBCUT ×3 (11:59→20:39)
--- NOTE | 2024-09-02 12:14 | PM.IMHP1 ---
Assessment and Plan Assessment and plan (1) Hepatic encephalopathy: Problem comment: -AMS likely from this. CT Head/Chest/Abdomen/Pelvis no new or acute findings. No leukocytosis. Labs reviewed. -[place] grade 2 at least, some features of grade 3 (lost in his own house; confused about order of events/upcoming appts/irritable) -Ammonia level 95 when normal 5 days [employer] -Load lactulose (60mg this am, 20mg q2 hours until first BM then taper to effect; 2-3 soft BM's per 24 hours) -Check Vit B1 level, replace thiamine IV per protocol - Considering triggers: Infection, GI bleed, diuretic overdose, electrolyte disorder, constipation, psychoactive medication, dehydration, dietary indiscretion. No obvious causes other than progressive liver failure. 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 not from sepsis. this is impaired hepatic clearance and increased production (portal hypertension and altered spleen blood flow increase increases level). The elevated ammonia decreases rate of clearance. -work with underlying issues, hydrate and monitor Status: Acute (4) Autoimmune hepatitis: Problem comment: -Followed by [facility] (Maria Isabel Ricci MD) -dx circa 2013 -sequelae of portal venous hypertension including splenomegaly, upper abdominal and esophageal varices, ascites, portal colopathy, chronic thrombocytopenia -No previous HE or hyperammonemia until August 2024 Status: Acute (5) Hyperlipidemia: Problem comment: -hold crestor Status: Acute (6) Type 2 diabetes mellitus, without long-term current use of insulin: Problem comment: A1C 7.4 Accuchecks/SSI holding jardiance and metformin Status: Acute (7) GERD (gastroesophageal reflux disease): Status: Acute Hospitalist- H&P: HPI History of Present Illness Date Seen: 09/02/24 Chief complaint: weakness Narrative: ADMISSION HISTORY AND PHYSICAL - HOSPITALIST Chief Complaint: HPI: Mr. Niko Tolbert) is a 73 y.o. male who has decompensated liver disease from autoimmune hepatitis who presents with AMS. His called EMS around midnight with concerns that he was in the walk-in closet and was agitated and trying to get out but couldn't or wouldn't use the door. This follows earlier observations of agitation, trouble understanding upcoming appts and sequence of events. No fever, diarrhea, low sugar noted. He was just discharged three days earlier from [facility]. This was for similar AMS but with an DANELLE and dehydration. His mentation rapidly cleared with IVF and its important to note is ammonia was normal. This morning in the ED his ammonia was quite elevated at 95. He has a PMH of autoimmune hepatitis complicated by cirrhosis (with sequelae of portal venous hypertension including splenomegaly, upper abdominal and esophageal varices, ascites, portal colopathy, chronic thrombocytopenia), hypertension, hyperlipidemia, history of DVT (not currently on anticoagulation), type II diabetes, CKD stage III (baseline creatinine 1.1-1.2), and umbilical and left inguinal hernia s/p repair 08/2023 (now recurrent but no immediate plans for surgical intervention). He was recently admitted in [place] from 08/02/2024 to 08/05/2024 for weakness/malaise/fevers/elevated lactate with concern for sepsis but no identified source (SBP ruled out, completed empiric course of Ciprofloxacin) and then again this week one overnight 08/29 for DANELLE/dehydration/AMS. His Lasix was increased from 20 mg daily to 20 mg BID and his Spironolactone was increased from 100 mg daily to 100 mg BID on the July discharge but with the DANELLE this week he was returned to original diuretic dosing of 20/100. Last GI appt on 08/17 with [facility] ASSESSMENT / PLAN #1 Ascites We will check an electrolyte panel now to exclude azotemia or other electrolyte disturbances. He will continue furosemide 20 mg twice a day and spironolactone 100 mg twice a day for now #2 Recurrent left inguinal hernia Reviewed with Dr. Gomes who performed his surgery in conjunction with Urology in August 2023. With a higher risk of recurrence after an initial operation, it was Dr. Gomes's recommendation that this not be pursued. I told Mr. Jennings that if we can get his ascites under better control without medical metabolic complications of diuretic use, then I would revisit this she again with Dr. Gomes #3 Clinically significant portal hypertension Intolerant of carvedilol. We will consider initiation of nadolol at bedtime once we have his diuretic dosing stabilized. 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 We will plan a return visit in 2-3 weeks with labs and abdominal US to check on the status of the ascites. (scheduled for 08/07) ER COURSE: labs, fluid bolus CODE STATUS: FULL CODE PCP: Fay Virk DO EMERGENCY CONTACT PLAN: Esthela Jennings Rel To Pat Cell I've updated the PFSH, medications and allergies in the Expanse tabs. INVESTIGATIONS: LABS/MICRO/ECG/IMAGING CBC relevant for his known and worsening thrombocytopenia. Thirty-eight thousand platelets, 13.2 and hemoglobin normal white blood cell count. INR slightly high at 1.2. APTT normal 27 Blood gas, venous, normal. Chronic hyponatremia noted. 132. Normal potassium, bicarb. BUN creatinine 23/1.2. Creatinine clearance 48. A1c 7.4 Elevated lactate 4.4 then down to 3.6 with bolus I count normal. Phosphorus normal. Ferritin normal. Vitamin B1 level pending. Known elevated transaminases. However total bilirubin is only 1.6 with a normal direct. Normal BMP. Only slightly elevated CRP 1.2 TSH is normal. Lipase is normal. Albumin is normal. 2+ glucose in his urine otherwise negative for ketones, nitrite. Trace LE. No bacteria and very few white blood cells. Respiratory swab negative Ewing scan which included a head CT, CTA and contrasted abdomen pelvis CT were all reassuring. There were no new findings are unexpected findings. Chronic liver disease noted. Blood cultures are drawn and pending. Urine culture is in progress. EKG taken this morning at admission shows sinus rhythm. Right bundle branch block. Rate 73. REVIEW OF SYSTEMS: 12-point ROS completed with patient and negative unless otherwise stated in HPI or below. PHYSICAL EXAM: CONSTITUTIONAL: thin, chronically ill and cachectic. Awake and answers questions with a couple of words. Confused when asked where he was he thought he was at his high school but then corrected (after prompting) himself to [place] and knew it was 2024 that his was sitting beside him. GENERAL: No respiratory distress. Mildly agitated. Is acting like he can't get comfortable. VITAL SIGNS: see record. HEENT: Sclerae are anicteric. No petechiae. CARDIAC: rhythm is regular. There is no S3 or rub. No harsh murmurs. Extremities show no edema and with symmetrical pulses. PULM: good air entry with no wheeze. ABDOMEN: soft. minimal distension. no tense ascites noted. good bowel sounds. NEURO: Speech is simple and he does not make good eye contact. No slurring. A brief neurologic exam is negative. SKIN: No rashes, petechiae, concerning changes PSYCHIATRIC: Euthymic. ADMIT TO MEDSURG: CCU DVT: Holding on Lovenox for now, consider SCDs if they do not make him more confused GI: PO intake Time spent: Today I spent 75 minutes seeing the patient, discussing the patient with ER staff, reviewing Expanse and EPIC notes/diagnostics, discussing the care plan with our care time that includes social work, PT/OT, pharmacy, RT, jail and documenting my impressions and plan in the medical record. MEDICAL NECESSITY FOR HOSPITALIZATION Anticipated midnights in the hospital: 2 Admitting diagnosis: Decompensated liver failure, acute hepatic encephalopathy, type 2 diabetic Risk of morbidity and mortality: high Acuity is characterized as high and reflected in: Decompensation of liver function, advanced age, malnutrition, diabetes, confusion/agitation This patient will require hospital services as outlined in the assessment and plan in order to stabilize and be safely discharged to a lower level of care. Because of the risk and acuity as described above, this patient cannot be managed at a lower level of care. LENGTH OF STAY: 2 IP ? Anticipated LOS>2 midnights due to acuity of clinical presentation requiring inpatient level of care Precipitating factors considered: Medical Decision Making Medical Decision Making Has patient completed a Health Care Directive: Yes During This Stay, Who Would You Like To Make Decisions For You In The Event You Are Unable To Make Them For Yourself?: Esthela Jennings [facility] Medical History (Updated 09/02/24 @ 14:40 by Amber Dye MD) Hepatic encephalopathy ?K76.82 - Hepatic encephalopathy (ICD-10) History of DVT (deep vein thrombosis) ?Z86.718 - Personal history of other venous thrombosis and embolism (ICD-10) Hyperlipidemia ?E78.5 - Hyperlipidemia, unspecified (ICD-10) Type 2 diabetes mellitus, without long-term current use of insulin ?E11.9 - Type 2 diabetes mellitus without complications (ICD-10) GERD (gastroesophageal reflux disease) ?K21.9 - Gastro-esophageal reflux disease without esophagitis (ICD-10) Primary hypertension ?I10 - Essential (primary) hypertension (ICD-10) Autoimmune hepatitis ?K75.4 - Autoimmune hepatitis (ICD-10) Surgical History (Updated 09/02/24 @ 05:55 by Quentin Farrell MD) History of left inguinal hernia repair ?Z98.890 - Other specified postprocedural states (ICD-10) ?Z87.19 - Personal history of other diseases of the digestive system (ICD-10) Social History (Updated 09/02/24 @ 05:57 by Quentin Farrell MD) Narrative: , nonsmoker, retired What is your current living situation?: I presently have a place to live Problems where you live: no known problems Problems where you live details: NA In the past 12 months, utilities in danger of being shut off: no In past 12 months, lack of transportation kept you from medical appts, meetings, work, or getting things needed for daily living: no In the past 12 mos, have been you worried that your food would run out before you had money to buy more?: never true In the past 12 mos, the food you bought just didn't last and you didn't have money to buy more?: never true Highest level of school completed/degree received: Bachelor's degree Smoking Status: Never smoker Do you use any of these nicotine containing products: None Second hand tobacco smoke exposure: No How often do you have a drink containing alcohol: never How often do you have six or more drinks on one occasion: Never AUDIT-C Alcohol total score: 0 Non-prescribed substance use: denies use Caffeine: No How often does anyone, including family, friends and others, physically hurt you: unable to answer How often does anyone, including family, friends and others, insult or talk down to you: unable to answer How often does anyone, including family, friends and others, threaten you with harm: unable to answer How often does anyone, including family, friends and others, scream or curse at you: unable to answer service: No Meds Home Medications and Allergies Home Medications ?Medication ?Instructions ?Recorded ?Confirmed ?Type cholecalciferol (vitamin D3) 125 125 mcg PO DAILY 05/16/23 09/02/24 History mcg (5,000 unit) capsule empagliflozin 10 mg tablet 10 mg PO DAILY 05/16/23 09/02/24 History (Jardiance) ferrous gluconate 324 mg (38 mg 324 mg PO DAILY 05/16/23 09/02/24 History iron) tablet furosemide 20 mg tablet 20 mg PO DAILY 05/16/23 09/02/24 History metformin 500 mg tablet,extended 500 mg PO BIDWM 05/16/23 09/02/24 History release 24 hr omeprazole 20 mg capsule,delayed 20 mg PO DAILY 05/16/23 09/02/24 History release rosuvastatin 20 mg tablet 20 mg PO HS 05/16/23 09/02/24 History multivitamin (Daily Multi-Vitamin 1 tab PO DAILY 09/02/24 09/02/24 History tablet) sennosides 8.6 mg-docusate sodium 2 tab-cap PO DAILY PRN 09/02/24 09/02/24 History 50 mg tablet spironolactone 100 mg tablet 100 mg PO DAILY 09/02/24 09/02/24 History Allergies Allergy/AdvReac Type Severity Reaction Status Date / Time acetaminophen (From Tylenol) Allergy Severe Autoimmune Verified 09/02/24 10:14 Liver Disease celecoxib (From Celebrex) AdvReac Severe Acute Verified 09/02/24 10:14 Renal Failure NSAIDS (Non-Steroidal AdvReac Severe Acute Verified 09/02/24 10:14 Anti-Inflamma Renal Failure Exam Const: Vital Signs, click to edit/add: Vital Signs - 24 hr 09/02/24 03:29 09/02/24 07:39 09/02/24 08:18 Temperature 97.5 F L 98.8 F Pulse Rate [Pulse Oximeter] 66 98 Pulse Rate [Right Pulse Oximeter] 78 Respiratory Rate 16 16 18 Blood Pressure [Le ft Arm] 117/75 Blood Pressure [Ri ght Upper Arm] 109/76 109/72 Pulse Oximetry 99 98 98 Oxygen Delivery Me thod Room Air Room Air Hospitalist - H&P: Result Labs Labs: Short CBC 09/02/24 Range/Units 03:32 WBC 4.25 L (4.50-11.00) K/uL Hgb 13.1 L (13.5-17.5) gm/dL Hct 38.1 (37.0-53.0) % Plt Count 55 L (140-440) K/uL BMP 09/02/24 03:32 Sodium 132 L Potassium 4.8 Chloride 102 Carbon Dioxide 21 BUN 24 Creatinine 1.4 Glucose 162 H Calcium 9.6 Liver Function 09/02/24 Range/Units 03:32 Total Bilirubin 1.3 (0.1-1.5) mg/dL AST 59 H (12-35) U/L ALT 42 (4-50) U/L Alkaline Phosphatase 235 H (40-150) U/L Albumin 3.7 (3.3-5.0) g/dL Urine 09/02/24 Range/Units 03:30 Urine Color Yellow (Yellow) Urine Appearance Clear (Clear) Urine pH 6.5 (5.0-8.5) Ur Specific [place] 1.010 (1.000-1.030) Urine Protein Negative (Negative) Urine Glucose (UA) 2+ A (Negative)
[2024-09-02 12:20] LABS: HCO3 VBG 21 mmol/L (21-28); Ionized Calcium* 1.19 mmol/L (1.11-1.30); Lactate* 3.6 mmol/L (0.5-1.9); PCO2 VBG 36 mmHG (40-50); PO2 VBG 44.3 mmHG (25-47); pH VBG 7.371 (7.32-7.43)
[2024-09-02 12:24] LABS: Basophils Absolute Auto 0.01 K/uL (0.00-0.30); Basophils Percent Auto 0.2 % (0.0-3.0); Eosinophils Absolute Auto 0.12 K/uL (0.00-0.50); Eosinophils Percent Auto 2.3 % (0.0-7.0); Hematocrit 38.4 % (37.0-53.0); Hemoglobin* 13.2 gm/dL (13.5-17.5); Immature Granulocytes Abs Auto 0.01 K/uL (0.00-0.30); Immature Granulocytes Pct Auto 0.2 %; Lymphocytes Percent Auto 6.4 % (20-44); Mean Corpuscular HGB Conc 34 gm/dL (32-36); Mean Corpuscular Hemoglobin 33 pg (26-34); Mean Corpuscular Volume 97 fL (80-100); Monocytes Percent Auto 8.1 % (0.0-11.0); Neutrophils Percent Auto 82.8 % (42.0-72.0); RDW Coefficient of Variation % 14.6 % (11.5-15.5); Red Blood Count 3.95 m/uL (4.30-5.90); White Blood Count* 5.31 K/uL (4.50-11.00)
[2024-09-02 12:38] LABS: Slide Review Reflex Yes
[2024-09-02 13:03] LABS: INR 1.19 (0.91-1.10); Partial Thromboplastin Time* 27 Seconds (23-33)
[2024-09-02 13:05] LABS: Albumin* 3.4 g/dL (3.3-5.0)
[2024-09-02 13:06] LABS: Albumin* 3.4 g/dL (3.3-5.0); Chloride* 104 mmol/L (96-114); Potassium* 4.2 mmol/L (3.6-5.1); Sodium* 132 mmol/L (135-149)
[2024-09-02 13:08] LABS: Alanine Aminotransferase* 41 U/L (4-50); Alkaline Phosphatase* 235 U/L (40-150); Aspartate Amino Transferase* 49 U/L (12-35); Bilirubin Direct* 0.4 mg/dL (0.0-0.5); Bilirubin Total* 1.6 mg/dL (0.1-1.5); Lipase* 288 U/L (23-300); Total Protein* 7.7 g/dL (6.0-8.3)
[2024-09-02 13:09] LABS: Anion Gap 8 mEq/L (7-15); Blood Urea Nitrogen* 23 mg/dL (7-30); Calcium* 9.7 mg/dL (8.4-10.6); Carbon Dioxide* 20 mmol/L (20-32); Creatinine* 1.2 mg/dL (0.5-1.5); Est. Creatinine Clearance* 47.77; Estimated Glomerular Filt Rate 63 ml/min; Glucose* 162 mg/dL (60-115); Phosphorus* 2.9 mg/dL (2.5-4.5)
[2024-09-02 13:11] LABS: C Reactive Protein* 1.2 mg/dL (0.5-1.0)
[2024-09-02] MEDS: LACTULOSE 20 GM/30 ML 40 GM PO (13:24)
[2024-09-02 13:33] LABS: NT Pro B Type NatriureticPept* 124 pg/mL (See Note); Troponin I* < 0.01 ng/mL (0.01-0.04)
[2024-09-02 13:39] LABS: Hemoglobin A1C* 7.4 % (0-5.6)
[2024-09-02 13:43] LABS: Ferritin* 69.4 ng/mL (17.9-464.0)
[2024-09-02] MEDS: THIAMINE 250 MG in 0.9 % SODIUM CHLORIDE 100 ml 100 ML 102.5 MG IVPB ×2 (14:16→20:38)
[2024-09-02 14:33] LABS: Platelet Count* 38 K/uL (140-440); Slide Review Acceptable Review (Acceptable)
--- NOTE | 2024-09-02 18:30 | PC.NURSE ---
Patient arrived via chair from ER in the late morning accompanied by his . During my initial assessment the patient was alert to self but not where or why he was here. Memory and decision making impaired. At times somnolent and slow to awake while other times lucid in speech. Body appears thin. We have been walking the patient stand by assist with a rolling walker. Fall precautions in place. The patient is receiving diuretics and lactulose. Frequent attempts at urination with minimal output. Bladder scan shows no significant retention. CMS intact. Breathing clear and unlabored. No other assessment findings of significance. Checking on the patient frequently. High risk for medicine induced incontinence. ? ? The patient had a continent bowel movement at 1630. The order for lactulose changed to Q8hr per order. Now oriented to everything but situation. He believes he came in because he was feeling weak. Much more alert than in the morning. Follow up with outpatient via [place] has been?scheduled. ?
[2024-09-02] MEDS: ENOXAPARIN 40 MG/0.4 ML INJ SUBCUT (20:38)
[2024-09-02] MEDS: 0.9 % SODIUM CHLORIDE 1000 ml 1,000 ML 75 ML IV (23:29)
[2024-09-03] MEDS: LACTULOSE 20 GM/30 ML PO (00:40)
[2024-09-03 03:00] VITALS: BP 110/64; PULSE 72; RESP 18; TEMP 36.6; O2SAT 98
--- NOTE | 2024-09-03 06:48 | PC.NURSE ---
End of shift report [id number]: VSS. Afebrile. Denies pain. Ambulates SBA with gait belt and walker. Pt was pleasant and cooperative. Pt had 1 BM overnight. Pt is resting in bed, bed alarm on, call light within reach.?
[2024-09-03 07:56] VITALS: PULSE 62
[2024-09-03 08:00] VITALS: BP 98/69; PULSE 75; RESP 16; TEMP 37.2; O2SAT 97
[2024-09-03] MEDS: THIAMINE 250 MG in 0.9 % SODIUM CHLORIDE 100 ml 100 ML 102.5 MG IVPB (09:07)
[2024-09-03] MEDS: OMEPRAZOLE 20 MG CAPSULE DR PO (09:07)
[2024-09-03 09:41] LABS: HCO3 VBG 20 mmol/L (21-28); Lactate* 2.7 mmol/L (0.5-1.9); PCO2 VBG 35 mmHG (40-50); PO2 VBG < 30.1 mmHG (25-47); pH VBG 7.361 (7.32-7.43)
[2024-09-03 09:47] LABS: Basophils Percent Auto 0.5 % (0.0-3.0); Eosinophils Percent Auto 4.4 % (0.0-7.0); Hematocrit 36.3 % (37.0-53.0); Hemoglobin* 12.3 gm/dL (13.5-17.5); Immature Granulocytes Pct Auto 0.3 %; Lymphocytes Percent Auto 11.5 % (20-44); Mean Corpuscular HGB Conc 34 gm/dL (32-36); Mean Corpuscular Hemoglobin 33 pg (26-34); Mean Corpuscular Volume 98 fL (80-100); Monocytes Percent Auto 12.9 % (0.0-11.0); Neutrophils Percent Auto 70.4 % (42.0-72.0); RDW Coefficient of Variation % 14.5 % (11.5-15.5); Red Blood Count 3.72 m/uL (4.30-5.90); White Blood Count* 3.64 K/uL (4.50-11.00)
[2024-09-03 09:48] LABS: Platelet Count* 32 K/uL (140-440)
[2024-09-03 09:49] LABS: Slide Review Reflex No
[2024-09-03 10:05] LABS: INR 1.22 (0.91-1.10); Prothrombin Time 16.3 Seconds
[2024-09-03 10:09] LABS: Chloride* 106 mmol/L (96-114); Sodium* 131 mmol/L (135-149)
[2024-09-03 10:10] LABS: Potassium* 3.8 mmol/L (3.6-5.1)
[2024-09-03 10:11] LABS: Albumin* 2.9 g/dL (3.3-5.0)
[2024-09-03 10:12] LABS: Anion Gap 9 mEq/L (7-15); Blood Urea Nitrogen* 16 mg/dL (7-30); Carbon Dioxide* 16 mmol/L (20-32); Creatinine* 1.1 mg/dL (0.5-1.5); Est. Creatinine Clearance* 48.95; Estimated Glomerular Filt Rate 70 ml/min; Phosphorus* 2.9 mg/dL (2.5-4.5)
[2024-09-03 10:13] LABS: Calcium* 8.7 mg/dL (8.4-10.6); Glucose* 191 mg/dL (60-115)
[2024-09-03 10:14] LABS: Alanine Aminotransferase* 40 U/L (4-50); Alkaline Phosphatase* 176 U/L (40-150); Aspartate Amino Transferase* 47 U/L (12-35); Bilirubin Direct* 0.5 mg/dL (0.0-0.5); Bilirubin Total* 2.5 mg/dL (0.1-1.5)
[2024-09-03 10:17] LABS: C Reactive Protein* 3.1 mg/dL (0.5-1.0)
[2024-09-03 10:34] LABS: NT Pro B Type NatriureticPept* 527 pg/mL (See Note)
[2024-09-03 11:30] VITALS: BP 93/52; PULSE 70; RESP 16; TEMP 36.9; O2SAT 100
[2024-09-03] MEDS: FUROSEMIDE 20 MG TABLET 40 MG PO (11:46)
[2024-09-03] MEDS: SPIRONOLACTONE 100 MG TABLET 200 MG PO (11:46)
[2024-09-03] MEDS: INSULIN ASPART 100 UNIT/ML SUBCUT (12:18)
--- NOTE | 2024-09-03 14:31 | P.DS_ITS ---
DS: Providers Provider Date Seen: 09/03/24 Date of admission: 09/02/24 08:46 Primary care physician: Klaudia Virk DO Admitting Clinician: Amber Dye MD Consults: 09/02/24 08:46 Consult to Occupational Therapy [CONS] Routine Comment: Reason(s) for OT Consult:: Evaluate and Treat Any Restrictions?:: No Restrictions Consult to Physical Therapy [CONS] Routine Comment: Reason(s) for PT Consult:: Evaluate and Treat Any Restrictions?:: No Restrictions Consult to Workers Compensation Claims Examiner [CONS] Routine Comment: Reason for Consult:: Social Service Consult Attending Physician on discharge: Amber Dye MD Date of Discharge: 09/03/24 DS: Diagnosis Discharge Diagnosis (1) Hepatic encephalopathy: Status: Acute Problem details: -AMS likely from this. CT Head/Chest/Abdomen/Pelvis no new or acute findings. No leukocytosis. No fever. CRP minimally elevated. Labs reviewed. 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 No obvious causes other than progressive liver failure. 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 Aldactone and Lasix restarted; creat improved overnight. will add lactulose and rifaximin to regimen (3) Elevated lactic acid level: Status: Acute Problem details: 4.4 upon arrival. not from sepsis. this is impaired hepatic clearance and increased production (portal hypertension and altered spleen blood flow iincreases level). The elevated ammonia decreases rate of clearance. -work with underlying issues, hydrate and monitor -improving upon discharge (4) Autoimmune hepatitis: Status: Acute Problem details: -Followed by [facility] (Maria Isabel Ricci MD) -dx circa 2013 -sequelae of portal venous hypertension including splenomegaly, upper abdominal and esophageal varices, ascites, portal colopathy, chronic thrombocytopenia -No previous HE or hyperammonemia until August 2024 (5) Hyperlipidemia: Status: Acute Problem details: Continue statin (6) Type 2 diabetes mellitus, without long-term current use of insulin: Status: Acute Problem details: A1C 7.4 Accuchecks/SSI Holding metformin restarting Jardiance (7) GERD (gastroesophageal reflux disease): Status: Acute Problem details: Continue PPI DS: Summary Hospital Course Hospital Course: FINAL DIAGNOSIS/FOLLOW UP ISSUES: 1. Acute hepatic encephalopathy. Elevated ammonia level, 95. Delirious. Resolved quickly overnight with IV fluids and lactulose initiation. Discharging on lactulose and rifaximin. Close follow-up GI already arranged. 2. Ascites management no clinical need for paracentesis during this hospitalization but I did increase his spironolactone to 200 mg q.a.m. with Lasix 40 mg q.a.m.. His discharge creatinine was 1.1. BRIEF HOSPITAL COURSE: Patient was admitted overnight. Synopsis of acute inpatient issues are outlined above. Chronic medical conditions with notable findings outlined above. This overnight admission was very similar to his overnight admission 1 week ago at [facility]. He presented weak and delirious. This time his ammonia level was quite elevated at 95. He was initiated on lactulose and promptly had several bowel movements. By morning his acute mental status changes had resolved and he was back to baseline. His strength was also markedly improved. No evidence of clinical dehydration, creatinine was 1.1 upon discharge. I am discharging him on lactulose and rifaximin protocol. I am also discharging him on increased doses of spironolactone and furosemide. DISCHARGE MEDICATIONS: See Reconciled list - SIGNIFICANT CHANGES: Spironolactone 200 mg p.o. q.a.m. Furosemide 40 mg p.o. q.a.m. Rifaximin 550 mg b.i.d. Lactulose 20 g 2 to 4 times a day titrated to bowel movement frequency Oral thiamine Specific instructions to the patient and follow-up are outlined below. REVIEW OF SYSTEMS No new chest pain or dyspnea Pain controlled No voiding difficulties Tolerating diet challenge PHYSICAL EXAM: CONSTITUTIONAL: chronically ill appearing, thin. much more aware and conversive this morning. GENERAL: Well-developed and above ideal body weight, in no respiratory distress. VITAL SIGNS: see record. HEENT: Sclerae are anicteric. No petechiae. CARDIAC: rhythm is regular. There is no S3 or rub. No harsh murmurs. Extremities show trace edema with symmetrical pulses. PULM: good air entry with no wheeze. NEURO: Speech is fluent. A brief neurologic exam is negative. SKIN: No rashes, petechiae, concerning changes PSYCHIATRIC: Euthymic. DISPOSITION: Home with Time spent on discharge 37 minutes. Status at Discharge Functional status at discharge: uses cane/walker Overall status at discharge: patient is progressing back to baseline Time Spent with Patient Time attestation: Total time spent providing and/or coordinating discharge services: Time spent: Greater than 30 minutes Exam Const: Vital Signs, click to edit/add: Vital Signs - 24 hr 09/02/24 16:00 09/02/24 19:00 09/02/24 23:00 Temperature 98.8 F 99.2 F 98.1 F Pulse Rate Pulse Rate [Right Pulse Oximeter] 76 80 83 Respiratory Rate 16 16 18 Blood Pressure [Le ft Arm] Blood Pressure [Ri ght Arm] 110/72 98/57 L 101/63 Pulse Oximetry 98 98 97 Oxygen Delivery Me thod Room Air Room Air Room Air 09/02/24 23:00 09/03/24 03:00 09/03/24 07:56 Temperature 97.8 F Pulse Rate 62 Pulse Rate [Right Pulse Oximeter] 72 Respiratory Rate 18 18 Blood Pressure [Le ft Arm] 110/64 Blood Pressure [Ri ght Arm] Pulse Oximetry 98 Oxygen Delivery Me thod Room Air 09/03/24 08:00 09/03/24 11:30 Temperature 98.9 F 98.5 F Pulse Rate Pulse Rate [Right Pulse Oximeter] 75 70 Respiratory Rate 16 16 Blood Pressure [Le ft Arm] 93/52 L Blood Pressure [Ri ght Arm] 98/69 Pulse Oximetry 97 100 Oxygen Delivery Me thod Room Air Room Air DS: Data Data Completed and Pending Labs on day of discharge: Labs from last 24 hours 0609/03/24 09/02/24 09:34 09:34 12:10 WBC 3.64 L RBC 3.72 L Hgb 12.3 L Hct 36.3 L MCV 98 MCH 33 MCHC 34 RDW Coeff of Arelis 14.5 Plt Count 32 L* 38 L* Neut % (Auto) 70.4 Lymph % (Auto) 11.5 L Beauregard % (Auto) 12.9 H Eos % (Auto) 4.4 Baso % (Auto) 0.5 Neut # (Auto) 2.60 Lymph # (Auto) 0.40 L Beauregard # (Auto) 0.50 Eos # (Auto) 0.20 Baso # (Auto) 0.00 Abs Immat Gran (auto) 0.00 Imm/Tot Granulo (auto) 0.3 Diff Slide Review Acceptable Review PT INR 1.22 H APTT VBG pH 7.361 VBG pCO2 35 L VBG pO2 < 30.1 VBG HCO3 20 L Sodium 131 L Potassium 3.8 Chloride 106 Carbon Dioxide 16 L Anion Gap 9 BUN 16 Creatinine 1.1 Estimated Creat Clear 48.95 Estimated GFR 70 Glucose 191 H Lactate 2.7 H Calcium 8.7 Phosphorus 2.9 Total Bilirubin 2.5 H Direct Bilirubin 0.5 AST 47 H ALT 40 Alkaline Phosphatase 176 H C-Reactive Protein 3.1 H NT-Pro-B Natriuret Pep 527 H Total Protein 7.0 Albumin 3.0 L 2.9 L 09/02/24 06:40 WBC RBC Hgb Hct MCV MCH MCHC RDW Coeff of Arelis Plt Count Neut % (Auto) Lymph % (Auto) Beauregard % (Auto) Eos % (Auto) Baso % (Auto) Neut # (Auto) Lymph # (Auto) Beauregard # (Auto) Eos # (Auto) Baso # (Auto) Abs Immat Gran (auto) Imm/Tot Granulo (auto) Diff Slide Review PT Cancelled INR Cancelled APTT Cancelled VBG pH VBG pCO2 VBG pO2 VBG HCO3 Sodium Potassium Chloride Carbon Dioxide Anion Gap BUN Creatinine Estimated Creat Clear Estimated GFR Glucose Lactate Calcium Phosphorus Total Bilirubin Direct Bilirubin AST ALT Alkaline Phosphatase C-Reactive Protein NT-Pro-B Natriuret Pep Total Protein Albumin Preliminary micro results at discharge 09/02/24 12:31 Blood Culture - Preliminary Blood NO GROWTH AFTER 24 HOURS 09/02/24 12:10 Blood Culture - Preliminary Blood NO GROWTH AFTER 24 HOURS 09/02/24 03:30 Urine Culture - Preliminary Urine,Clean Catch NO GROWTH AFTER 24 HOURS Discharge Plan Discharge Disposition: Home w/ Parent or Adult Date of Admission: 09/02/24 08:46 Attending Provider on Discharge: Amber Dye Primary Care Provider: Klaudia Virk Condition: Improved Anticipated Discharge Date/Time: 09/03/24 14:17 Discharge Medications: New furosemide 20 mg Tablet 40 mg PO DAILY Qty: 60 0RF lactulose 20 gram packet 20 g PO BID Qty: 60 0RF Rx Instructions: give at 9am and 4 pm may hold 4 pm dose if he's had three BMs that day may give a 7 pm dose if he's NOT had 2-3 BMs that day. max dose is 4 doses, 2 hours apart spironolactone 100 mg Tablet 200 mg PO DAILY Qty: 60 0RF thiamine mononitrate (vit B1) [Vitamin B-1 (mononitrate)] 100 mg Tablet 200 mg PO DAILY Qty: 30 0RF Xifaxan 550 mg tablet 550 mg PO BID Qty: 60 2RF Continued Jardiance 10 mg tablet 10 mg PO DAILY cholecalciferol (vitamin D3) 125 mcg (5,000 unit) capsule 125 mcg PO DAILY ferrous gluconate 324 mg (38 mg iron) tablet 324 mg PO DAILY omeprazole 20 mg capsule,delayed release(DR/EC) 20 mg PO DAILY rosuvastatin 20 mg tablet 20 mg PO HS sennosides-docusate sodium 8.6-50 mg tablet 2 tab-cap PO DAILY PRN multivitamin [Daily Multi-Vitamin] Tablet 1 tab PO DAILY Held metformin 500 mg tablet extended release 24 hr 500 mg PO BIDWM Hold Instructions: Resume on 09/12/24. Until you see your doc at [facility]. Discontinued furosemide 20 mg tablet 20 mg PO DAILY spironolactone 100 mg tablet 100 mg PO DAILY Discharge Orders: Discharge Order (Routine); Ordered 09/03/24 Ordered By: Amber Dye Patient Education: Spironolactone (By mouth), Furosemide (By mouth), Thiamine (By mouth), Lactulose (By mouth), Rifaximin (By mouth) (Xifaxan), Altered Mental Status (GEN) Activity Level: Activity as Tolerated, No strenuous activity and Up with assist Discharge Diet: Regular and 2 gm Sodium Follow Up Appointments: [facility] [Provider Group, Gastroenterology] Referral Note: Keep upcoming appts with Dr. Kimberly Ricci MD Forms: [employer] Info Instructions
[2024-09-03] MEDS: THIAMINE 100 MG TABLET 200 MG PO (14:52)
--- NOTE | 2024-09-03 16:46 | PC.NURSE ---
Patient alert and oriented upon initial assessment. Notable improvement in mentation since admission. No longer confused or forgetful. Strength and confidence when walking also improved. Using a rolling walker with stand by assistance. Vitally hypotensive. Diuretics held in the AM. Given around the noon hour after further review from the physician. No longer on IV fluids. PO fluids are being encouraged to remain hydrated. Appetite is low but he is agreeable to three meals a day. Frequent trips to the toilet. Lactulose frequency changing to accommodate 2-3 stools a day. Currently over this amount. Preceptor monitored tele this shift. Odd finding on strip. EKG ordered and MD reviewed. No changes. DC approved. Left via chair at 1615. Follow up to be completed by the [facility]
[2024-09-06 09:09] LABS: Vitamin B1, Whole Blood 186 nmol/L (70-180)
== END 2024-09-03 16:15 | disposition home or self-care (01) | DRG 441 ==
LOC: ED 05:59 → MEDSURG 08:00
PROVIDERS: Admitting Provider Family Medicine; Emergency Provider Family Medicine; PCP Family Medicine; Visit Provider Family Medicine
DX: K76.82 Hepatic encephalopathy (principal); K72.00 Acute and subacute hepatic failure without coma; K76.6 Portal hypertension; I85.10 Secondary esophageal varices without bleeding; R18.8 Other ascites; E44.0 Moderate protein-calorie malnutrition; K72.10 Chronic hepatic failure without coma; K75.4 Autoimmune hepatitis; K74.69 Other cirrhosis of liver; R74.02 Elevation of levels of lactic acid dehydrogenase [LDH]; D69.6 Thrombocytopenia, unspecified; I12.9 Hypertensive chronic kidney disease with stage 1 through stage 4 chronic kidney disease, or unspecified chronic kidney disease; Z68.20 Body mass index [BMI] 20.0-20.9, adult; E88.A Wasting disease (syndrome) due to underlying condition; R16.1 Splenomegaly, not elsewhere classified; E11.22 Type 2 diabetes mellitus with diabetic chronic kidney disease; N18.30 Chronic kidney disease, stage 3 unspecified; Z79.84 Long term (current) use of oral hypoglycemic drugs; K21.9 Gastro-esophageal reflux disease without esophagitis; M06.9 Rheumatoid arthritis, unspecified; E78.5 Hyperlipidemia, unspecified; Z86.718 Personal history of other venous thrombosis and embolism
CPT/HCPCS: 36415; 51798; 70450; 71260; 74177; 80053; 80069; 80076; 81001; 81003; 82140; 82330; 82728; 82803; 82962; 83036; 83605; 83690; 83880; 84425; 84443; 84484; 85025; 85610; 85730; 86140; 87040; 87086; 87631; 93005; 97110; 97116; 97161; 97165; 97530; 97535; 99283; 99285; A9270; J1650; J2470; J3411; J7030; Q9967

== ENCOUNTER 2024-12-12 21:50 | Emergency (ER) | payer MEDICARE, BC, SELFPAY ==
--- OUTSIDE RECORDS SUMMARY | 2024-12-07 10:28 | XMS_ITS | Encounter Summary ---
Author Organization [facility] Address [address] [place] [id number] Care Team Providers Care Vocational Case Manager Name Role Phone Elsewhere, Pcp Primary Care Provider Unavailabl e Reason for Referral * Outpatient (Routine) - Closed Specialty Diagnoses / Procedures Referred By Santi segundo Referred To Contact Diagnoses Cirrhosis Nonalcoholic (HCC) Procedures US Abdomen Complete Marv Myrick M.D., M.P.H. [address] [place] [address] Phone: tel: fax: [facility] Referral ID Status Reason Start Date Expiration Date Visits Re quested Visits Authorized [id number] Closed 06/02/2024 09/02/2025 1 1 Reason for Visit * Outpatient (Routine) - Closed Specialty Diagnoses / Procedures Referred By Contjovani t Referred To Contact Diagnoses Cirrhosis Nonalcoholic (HCC) Procedures US Abdomen Complete Marv Myrick M.D., M.P.H. [address] [place] [address] Phone: tel: fax: [facility] Referral ID Status Reason Start Date Expiration Date Visits Re quested Visits Authorized [id number] Closed 06/02/2024 09/02/2025 1 1 Encounter Details Date Type Department Care Team (Latest Contact Info) Description 12/07/2024 10:28 AM CDT - 12/07/2024 11:53 AM CDT Hospital Encounter Department of Radiology, [facility], in [place], [place] [address] [place] [address] Marv Myrick M.D., M.P.H. [address] [place] [address] Cirrhosis Nonalcoholic (HCC) Discharge Disposition: Home or Self Care Social History Tobacco Use Types Packs/Day Years Used Date Smoking Tobacco: Never Smokeless Tobacco: Never Alcohol Use Standard Drinks/Week Comments Not Currently 0 (1 standard drink = 0.6 oz pur e alcohol) Don t drink Humiliation, Afraid, Rape, and Kick questionnair e [...] by your partner or ex-partner? No 08/29/2024 Hunger Vital Sign Answer Date Recorded Within the past 12 months, y ou worried that your food would run out before you got the money to buy more. Never true 12/01/19 25 Within the past 12 months, t he food you bought just didn't last and you didn't have money to get more. Never true 11/30/2024 PRAPARE - Transportation Answer Date Re corded In the past 12 months, has l ack of transportation kept you from medical appointments or from getting medications? No 11/21 In the past 12 months, has l ack of transportation kept you from meetings, work, or from getting things needed for daily living? No 11/30/2024 [facility] Utilities Answer Date Recorded In the past 12 months has th [employer] electric, gas, oil, or water company threatened to shut off services in your home? No 11/30/2024 Housing Stability Answer Date Recorded What is your living situation today? I have a [facility] [place] place to live 11/30/2024 Education Answer Date Recorded What is the highest level of school you have completed or the highest degree you have received? Bachelor's degree (e.g., BA, AB, BS) 11/11/2020 Sex and Gender Information Value Date Recorded Sex Assigned at Male 02/12/2021 6:18 PM OFFLINE EDITOR Legal Sex Male 9:16 PM OFFLINE EDITOR Gender Identity Male 11/11/2020 11:30 AM CDT [...] mouth 2 (two) times a day. multivitamin-iron -[id number] 400 mcg (folic acid) tablet Take 1 [...] daily. 08/30/2024 documented as of this encounter Plan of Treatment Upcoming Encounters Date Type Department Care Team (Latest Contact Info) Description 12/26/2024 4:00 PM CDT Clinical Communication Virtual Review in [place], [place] [address] [place] [phone] 01/02/2025 4:20 PM CDT Telemedicine Division of Gastroenterology in [place], [place] [address] [place] [phone] Marv Myrick M.D., M.P.H. [address] [place] [phone] documented as of this encounter Goals Goal Patient Goal Type Associated Problems Recent Progress Patient-Stated? Author [facility] Care Plan - Cirrhosis Decompensated Tasks Care Plan [facility] Care Plan - Cirrhosis Decompensated Tasks No Marv Myrick M.D., M.P.H. Cirrhosis On Ramp Tasks Care Plan Cirrhosis On Ramp Tasks No Marv Myrick M.D., M.P.H. [place] Care Plan - Nicotine Dependency Chronic Care Plan Cirrhosis On Ramp Tasks No Marv Myrick M.D., M.P.H. Continue on Care Plan Care Plan Continue on Care Plan No Patient, Online Services Continue on Care Plan Care Plan Continue on Care Plan No Patient, Online Services Continue on Care Plan Care Plan Continue on Care Plan No Patient, Online Services documented as of this encounter Procedures Procedure Name Priority Date/Time Associated Diagnosis Comments US ABDOMEN COMPLETE RAD - Routine (most inpatients and all outpatients) 12/07/2024 12:03 PM CDT Cirrhosis Nonalcoholic (HCC) documented in this encounter Results * US Abdomen Complete (12/07/2024 12:03 PM CDT) Anatomical Region Laterality Modality Abdomen, Ultrasound RST LOS, Ultrasound ARZ LOS, Ultrasound FLA LOS N/A Ultrasound Impressions 12/07/2024 12:21 PM CDT 1. Cirrhosis. No focal hepatic observation. Ultrasound LI RADS 1B. 2. Progressive splenomegaly. Mild scattered ascites. Narrative 12/07/2024 12:21 PM CDT EXAM: US ABDOMEN COMPLETE COMPARISON: Abdominal ultrasound 05/02/2024 FINDINGS: Liver: Cirrhotic appearance with markedly coarse and heterogeneous parenchyma. No focal hepatic observation. Antegrade flow in the main portal vein. Ultrasound LI-RADS score is as follows: Ultrasound Category: US-1: Negative (No US evidence of HCC). Recommend continued routine surveillance. Visualization Score: B: Moderate limitations (limitations may obscure small masses, especially < 1 cm). Ultrasound LI-RADS is a standardized system for imaging technique, interpretation, reporting, and data collection for screening or surveillance ultrasound exams in patients at risk for developing HCC. Ultrasound LI-RADS is supported and endorsed by the [employer]. More information can be found on the following link [email or web address] Gallbladder: Again noted is mild distention. No focal tenderness. Intrahepatic ducts: Not dilated. Common duct: Not dilated. Pancreas: Not well seen due to bowel. Right kidney: Length: 8.7 cm. Normal echogenicity. No hydronephrosis. Left kidney: Length: 11.4 cm. Normal echogenicity. No hydronephrosis. Spleen: Progressive splenomegaly. Small accessory splenule. Spleen length: 16.7 cm Aorta: Normal caliber. IVC: Normal where seen. Ascites: Mild scattered. Procedure Note Shelli Randolph M.D. - 12/07/2024 EXAM: US ABDOMEN COMPLETE COMPARISON: Abdominal ultrasound 05/02/2024 FINDINGS: Liver: Cirrhotic appearance with markedly coarse and heterogeneousparenchyma. No focal hepatic observation. Antegrade flow in the mainportal vein. Ultrasound LI-RADS score is as follows: Ultrasound Category: US-1: Negative (No US evidence of HCC). Recommendcontinued routine surveillance. Visualization Score: B: Moderate limitations (limitations may obscuresmall masses, especially < 1 cm). Ultrasound LI-RADS is a standardized system for imaging technique,interpretation, reporting, and data collection for screening orsurveillance ultrasound exams in patients at risk for developing HCC.Ultrasound LI-RADS is supported and endorsed by the [employer]. More information can be found on the following [email or web address] Gallbladder: Again noted is mild distention. No focal tenderness. Intrahepatic ducts: Not dilated. Common duct: Not dilated. Pancreas: Not well seen due to bowel. Right kidney: Length: 8.7 cm. Normal echogenicity. No hydronephrosis. Left kidney: Length: 11.4 cm. Normal echogenicity. No hydronephrosis. Spleen: Progressive splenomegaly. Small accessory splenule. Spleenlength: 16.7 cm Aorta: Normal caliber. IVC: Normal where seen. Ascites: Mild scattered. IMPRESSION: 1. Cirrhosis. No focal hepatic observation. Ultrasound LI RADS 1B. 2. Progressive splenomegaly. Mild scattered ascites. us Marv Myrick M.D., M.P.H. IMG US PROCEDURE S Final Result documented in this encounter Visit Diagnoses Diagnosis Cirrhosis Nonalcoholic (HCC) documented in this encounter Additional Health Concerns Active Problems Noted Date Diagnosed Date [facility] Care Plan - Cirrhosis Decompensated Tasks 09/07/2024 Cirrhosis On Ramp Tasks 09/07/2024 Continue on Care Plan 10/05/2024 Continue on Care Plan 10/05/2024 Continue on Care Plan 11/01/2024 documented as of this encounter Care Teams Vocational Case Manager Relationship Specialty Start Date End Date Elsewhere, Pcp PCP - General Internal Medicine 08/19/21 documented as of this encounter
--- OUTSIDE RECORDS SUMMARY | 2024-12-07 11:54 | XMS_ITS | Encounter Summary ---
Author Organization [facility] Address [address] [place] [id number] Care Team Providers Care Stamping Mill Tender Name Role Phone Elsewhere, Pcp Primary Care Provider Unavailabl e Encounter Details Date Type Department Care Team (Latest Contact Info) Description 12/07/2024 11:54 AM CDT - 12/07/2024 11:59 PM CDT Hospital Encounter Department of Laboratory Medicine and Pathology, [facility], in [place], [place] [address] [place] [phone] Marv Myrick M.D., M.P.H. [address] [place] [phone] Cirrhosis Nonalcoholic (HCC) Discharge Disposition: Home or [...] things needed for daily living? No 11/30/2024 [facility] Utilities Answer Date Recorded In the past 12 months has e [email or web address], gas, oil, or water tado threatened to shut off services in your home? No 11/30/2024 Housing Stability Answer Date Recorded What is your living situation today? [facility] have [facility] 11/30/2024 Education Answer Date Recorded What is the highest level of school you have completed or the highest degree you have received? Bachelor's degree (e.g., BA, AB, BS) 11/11/2020 Sex and Gender Information Value Date Recorded Sex Assigned at Male 02/12/2021 6:18 PM [employer] Legal Sex Male 9:16 PM [employer] Gender Identity Male 11/11/2020 11:30 AM CDT [...] mouth 2 (two) times a day. multivitamin-iron -MP-[id number]-[id number] 400 mcg (folic acid) tablet Take 1 [...] PM CDT Clinical Communication Virtual Review in [address] [phone] 01/02/2025 4:20 PM CDT Telemedicine Division of Gastroenterology in [address] [phone] Marv Myrick M.D., M.P.H. [address] [place] [phone] documented as of this encounter Goals Goal Patient Goal Type Associated Problems Recent Progress Patient-Stated? Author [facility] Care Plan - Cirrhosis Decompensated Tasks Care Plan [facility] Care Plan - Cirrhosis Decompensated Tasks No Marv Myrick M.D., M.P.H. Cirrhosis On Ramp Tasks Care Plan Cirrhosis On Ramp Tasks No Marv Myrick M.D., M.P.H. [place] Care Plan - Nicotine Dependency Chronic Care [...] Diagnosis Comments HEPATIC FUNCTION PANEL, S Routine 12/07/2024 12:07 PM CDT Cirrhosis Nonalcoholic (HCC) CBC NO CALL BACK, REFLEX T/S Routine 12/07/2024 12:07 PM CDT Cirrhosis Nonalcoholic (HCC) AFP L3% AND TOT, HEPATOCELLULAR CARCINOMA TM, S Routine 12/07/2024 12:07 PM CDT Cirrhosis Nonalcoholic (HCC) BASIC METABOLIC PANEL, S/P Routine 12/07/2024 12:07 PM CDT Cirrhosis Nonalcoholic (HCC) documented in this encounter Results * (ABNORMAL) Hepatic Function Panel (12/07/2024 12:07 PM CDT) Bilirubin, Total, S 2.1(H) 0.0 - 1.2 mg/dL 12/07/2024 1:37 PM CDT DTL Bilirubin, Direct, S 0.8(H) 0.0 - 0.3 mg/dL 12/07/2024 1:37 PM CDT DTL Aspartate Aminotransferase (AST), S 53(H) 8 - 48 U/L 12/07/2024 1:37 PM CDT DTL Alanine Aminotransferase (ALT), S 62(H) 7 - 55 U/L 12/07/2024 1:37 PM CDT DTL Alkaline Phosphatase, S 307(H) 40 - 129 U/L 12/07/2024 1:37 PM CDT DTL Albumin, S 3.7 3.5 - 5.0 g/dL 12/07/2024 1:37 PM CDT DTL Protein, Total, S 7.9 6.3 - 7.9 g/dL 12/07/2024 1:37 PM CDT DTL Blood (Blood, Venous) 12/07/2024 12:07 PM CDT 12/07/2024 12:42 PM CDT us Marv Myrick M.D., M.P.H. LAB BLOOD ADD-ON Final Result [facility] [address] [place] [address], [facility] DTL [facility] [address] [place] [address] * (ABNORMAL) CBC no call back, reflex T/S HGB <8 (12/07/2024 12:07 PM CDT) Hemoglobin 14.8 13.2 - 16.6 g/dL 12/07/2024 12:42 PM CDT DTL Hematocrit 42.3 38.3 - 48.6 % 12/07/2024 12:42 PM CDT DTL Erythrocytes 4.36 4.35 - 5.65 x10(12)/L 12/07/2024 12:42 PM CDT DTL MCV 97.0 78.2 - 97.9 fL 12/07/2024 12:42 PM CDT DTL RBC Distrib Width 14.6(H) 11.8 - 14.5 % 12/07/2024 12:42 PM CDT DTL Platelet Count 54(L) 135 - 317 x10(9)/L 12/07/2024 12:42 PM CDT DTL Leukocytes 3.4 3.4 - 9.6 x10(9)/L 12/07/2024 12:42 PM CDT DTL Neutrophils 2.44 1.56 - 6.45 x10(9)/L 12/07/2024 12:42 PM CDT [facility] Lymphocytes 0.47(L) 0.95 - 3.07 x10(9)/L 12/07/2024 12:42 PM CDT DTL Monocytes 0.35 0.26 - 0.81 x10(9)/L 12/07/2024 12:42 PM CDT DTL Eosinophils 0.13 0.03 - 0.48 x10(9)/L 12/07/2024 12:42 PM CDT DTL Basophils 0.03 0.01 - 0.08 x10(9)/L 12/07/2024 12:42 PM CDT DTL Blood (Blood, Venous) 12/07/2024 12:07 PM CDT 12/07/2024 12:36 PM CDT Marv Myrick M.D., M.P.H. LAB BLOOD NON AD D-ON Final Result [facility] [address] [place] [address], [facility] DTL [facility] [address] [place] [address] [facility] [address] [place] [address] * (ABNORMAL) Basic Metabolic Panel (12/07/2024 12:07 PM CDT) Potassium, S 4.4 3.6 - 5.2 mmol/L 12/07/2024 1:37 PM CDT DTL Sodium, S 131(L) 135 - 145 mmol/L 12/07/2024 1:37 PM CDT DTL Chloride, S 97(L) 98 - 107 mmol/L 12/07/2024 1:37 PM CDT DTL Bicarbonate, S 22 22 - 29 mmol/L 12/07/2024 1:37 PM CDT DTL Anion Gap 12 7 - 15 12/07/2024 1:37 PM CDT DTL BUN (Blood Urea Nitrogen), S 30(H) 8 - 24 mg/dL 12/07/2024 1:37 PM CDT DTL Creatinine 1.63(H) 0.74 - 1.35 mg/dL 12/07/2024 1:37 PM CDT DTL Estimated GFR (eGFR) 43(L) >=60 mL/min/BSA 12/07/2024 1:37 PM CDT DTL Comment: Estimated GFR calculated using the 2020 CKD_EPI creatinine equation. Calcium, Total, S 9.5 8.8 - 10.2 mg/dL 12/07/2024 1:37 PM CDT DTL Glucose, S 135 70 - 140 mg/dL 12/07/2024 1:37 PM CDT DTL Blood (Blood, Venous) 12/07/2024 12:07 PM CDT 12/07/2024 12:42 PM CDT Marv Myrick M.D., M.P.H. LAB BLOOD ADD-ON Final Result Performing Organization Address [facility] Co de Phone Number [facility] [address] [place] [address], [place] DTL [facility] [address] [place] [address] * AFP (Alpha-Fetoprotein) L3% and Total, Hepatocellular Carcinoma Tumor Marker (12/07/2024 12:07 PM CDT) Total AFP, S 2.0 <4.7 ng/mL 12/08/2024 8:53 AM CDT SDS %L3 <0.5 <10 % 12/08/2024 8:53 AM CDT [facility] Comment: ----ADDITIONAL INFORMATION---- The testing method is isotachophoresis with laser-induced fluorescence manufactured by [employer] and performed on the i30. Values obtained with different assay methods or kits may be different and cannot be used interchangeably. Test results cannot be interpreted as absolute evidence for the presence or absence of malignant disease. Alpha-Fetoprotein and L3% values are not interpretable during for the investigation of malignant disease. Blood (Blood, Venous) 12/07/2024 12:07 PM CDT 12/08/2024 6:59 AM CDT Marv Myrick M.D., M.P.H. LAB BLOOD ADD-ON Final Result Performing Organization Address [facility] Co de Phone Number [facility] [address] [place] [address] [facility] [address] [place] [address] documented in this encounter Visit Diagnoses Diagnosis Cirrhosis Nonalcoholic (HCC) documented in this encounter Additional Health Concerns Active Problems Noted Date Diagnosed Date [facility] Care Plan - Cirrhosis Decompensated Tasks 09/07/2024 Cirrhosis On Ramp Tasks 09/07/2024 Continue on Care Plan 10/05/2024 Continue on Care Plan 10/05/2024 Continue on Care Plan 11/01/2024 documented as of this encounter Care Teams Stamping Mill Tender Relationship Specialty Start Date End Date Elsewhere, Pcp PCP - General Internal Medicine 08/19/21 documented as of this encounter
--- OUTSIDE RECORDS SUMMARY | 2024-12-12 21:52 | XMS_ITS | Clinical Summary ---
Author Organization [facility] Address [address] [place] [address] Care Team Providers Care Night Custodian Name Role Phone Elsewhere, Pcp Primary Care Provider Unavailabl e Source Comments Patient records contain information from all sites at [facility]. For routine questions regarding patient records, call [phone] during business hours, M-F 8:00 AM - 5:00 PM Central Time. Record requests for emergency care only can be directed to [phone] at any time.[facility] Allergies Active Allergy Reactions Criticality Noted Date [...] represent a complete record from that organization. cholecalciferol (VITAMIN D3) 125 mcg (5,000 Unit) [...] 1 tablet by mouth daily. 12/05/2020 Active multivitamin-ir dk-WP-Bj-minera ls 400 mcg (folic acid) tablet Take 1 tablet by mouth daily. 30 tablet 08/06/2024 Active furosemide (Lasix) 20 mg tablet Take 1 tablet (20 mg total) by mouth daily. 08/30/2024 Active sennosides-docu sate sodium (Senokot-S) 8.6-50 mg per tablet Take 2 tablets by mouth as needed for constipation . 08/30/2024 Active spironolactone (Aldactone) 100 mg tablet Take 1 tablet (100 mg total) by mouth daily. 08/30/2024 Active Active Problems Problem Noted Date Diagnosed Date [...] organization. Date Type Department Care Team Description 12/07/2024 11:54 AM CDT - 12/07/2024 11:59 PM CDT Hospital Encounter Department of Laboratory Medicine and Pathology, [facility] in [place], [place] [address] [place] [phone] Marv Myrick M.D., M.P.H. Cirrhosis Nonalcoholic (HCC) Discharge Disposition: Home or Self Care 12/07/2024 10:28 AM CDT - 12/07/2024 11:53 AM CDT Hospital Encounter Department of Radiology, [place], [place] [address] [place] [phone] Marv Myrick M.D., M.P.H. Cirrhosis Nonalcoholic (HCC) Discharge Disposition: Home or Self Care 10/21/2024 Episode Changes Division of Gastroenterology in [place], [place] [address] [place] [phone] Zoey Flores 10/20/2024 Results Follow-Up Division of Gastroenterology in [place], [place] [address] [place] [phone] Marv Myrick M.D., M.P.H. Basic Metabolic Panel 10/17/2024 1:16 PM CDT - 10/17/2024 11:59 PM CDT Hospital Encounter Department of Laboratory Medicine in [address] [address] Marv Myrick M.D., M.P.H. Ascites Discharge Disposition: Home or Self Care 10/06/2024 Clinical Communication Division of Gastroenterology in [place], [place] [address] [place] [phone] Marv Myrick M.D., M.P.H. Hepatobiliary; Symptom Assessment 10/06/2024 Results Follow-Up Division of Gastroenterology in [place], [place] [address] [place] [address] Marv Myrick M.D., M.P.H. Basic Metabolic Panel 09/28/2024 8:28 AM CDT - 09/28/2024 11:59 PM CDT Hospital Encounter Department of Laboratory Medicine in [place], [place] [address] [place] [address] Marv Myrick M.D., M.P.H. Cirrhosis Nonalcoholic (HCC) Discharge Disposition: Home or Self Care 09/24/2024 11:13 PM CDT Anesthesia Event Division of Gastroenterology in [place], [place] [address] [place] [phone] Graciela Snowden, BODY PRESS OPERATOR, CAFETERIA SERVER, IHSANP Regina Staples M.D. 09/24/2024 7:53 PM CDT - 2024 12:56 AM CDT Emergency [facility] Department [address] [place] [phone] Anne-Marie Eugene M.D. Foreign Body Swallowed Initial (Primary Dx) Discharge Disposition: Home or Self Care 09/21/2024 8:18 AM CDT - 09/21/2024 11:59 PM CDT Hospital Encounter Department of Laboratory Medicine in [address] [phone] Marv Myrick M.D., M.P.H. Cirrhosis Nonalcoholic (HCC) Discharge Disposition: Home or Self Care 09/16/2024 Documentation Division of Gastroenterology in [place], [place] [address] [place] [address] Marv Myrick M.D., M.P.H. 09/14/2024 8:59 AM CDT - 09/14/2024 11:59 PM CDT Hospital Encounter Department of Laboratory Medicine in [place], [place] [address] [place] [address] Marv Myrick M.D., M.P.H. Cirrhosis Nonalcoholic (HCC) Discharge Disposition: Home or Self Care from Last 3 Months Immunizations Immunization Administration [...] things needed for daily living? No 11/30/2024 [facility] Utilities Answer Date Recorded In the past [address] [facility] [employer], [employer], oil, or water company threatened to shut off services in your home? No 11/30/2024 Housing Stability Answer Date Recorded What is your living situation today? I have a [facility] place to live 11/30/2024 Education Answer Date Recorded What is the highest level of school you have completed or the highest degree you have received? 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 Legal Sex Male 9:16 PM WELL SHOOTER Gender Identity Male 11/11/2020 11:30 AM CDT Sexual Orientation Straight 11/11/2020 11 :30 AM CDT Last Filed Vital Signs Vital Sign Reading Time Taken Comments Blood Pressure 114/70 2024 12:30 AM CDT Pulse 70 2024 12:45 AM CDT Temperature 36.9 C (98.4 F) 2024 12:12 AM CDT Respiratory Rate 18 09/24/2024 7:59 PM CDT Oxygen Saturation 95% 2024 12:45 AM CDT Inhaled Oxygen Concentration - - Weight 60.8 kg (134 lb 0.6 oz) 09/24/2024 7:55 P M CDT Height 172.7 cm (5' 8) 08/29/2024 5:40 PM CDT Body Mass Index 20.38 08/29/2024 5:40 PM CDT Plan of Treatment Upcoming Encounters Date Type Department Care Team (Latest Contact Info) Description 12/26/2024 4:00 PM CDT Clinical Communication Virtual Review in [place], [place] [address] [place] [address] 01/02/2025 4:20 PM CDT Telemedicine Division of Gastroenterology in [place], [place] [address] [place] [phone] Marv Myrick M.D., M.P.H. [address] [place] [phone] Health Maintenance Due Date Last Done Comments Diabetic Office Visit with Foot Exam 1950 Hepatitis C Screening 1950 Office Visit for Blood Pressure Check / Re-check 1950 Urine Albumin 1950 Hepatitis A Vaccines (1 of 2 - Risk 2-dose series) 09/26/1967 Zoster Vaccines (2 of 3) 12/02/2012 10/07/2012 Diabetic Eye Exam 01/20/2017 01/21/2016 DTaP,Tdap,and Td Vaccines (3 - Td or Tdap) 09/01/2021 09/02/2011, 12/01/2007 RSV vaccine - (32-36 weeks) or 60+ years (1 - 1-dose 75+ series) 09/26/2023 Depression Screening (Annual PHQ-2) 03/23/2024 Fall Risk Screen (Annual) 03/23/2024 COVID-19 Vaccine (2024- season) 2024 09/18/2021, 03/20/2021, 06/22/2020, Additional history exists Influenza Vaccine (#1) 2024 , 12/24/2020, 01/18/2020, Additional history exists Hemoglobin A1C 05/17/2025 11/14/2024, 07/21, 09/04/2023, Additional history exists Abdominal Ultrasound 06/06/2025 12/07/2024, 08/02/2024, 05/02/2024, Additional history exists Creatinine Level (Kidney Function Test) 12/07/2025 12/07/2024, 10/17/2024, 09/28/2024, Additional history exists Potassium Level 12/07/2025 12/07/2024, 09/21, 09/28/2024, Additional history exists Sodium Level 12/07/2025 12/07/2024, 09/21, 09/28/2024, Additional history exists Hepatitis B Vaccines Completed 05/22/1992, 12/20/1991, 11/22/1991 Pneumococcal vaccine (50+ years) Completed 09/29/2014, 09/28/2013 Colonoscopy Discontinued 09/15/2018 Colorectal Cancer Screening Discontinued CT Colonography Discontinued Cologuard Discontinued FIT Discontinued IPV Vaccines Aged Out No longer eligi ble based on patient's age to complete this topic Goals Goal Patient Goal Type Associated Problems Recent Progress Patient-Stated? Author [facility] Care Plan - Cirrhosis Decompensated Tasks Care Plan [facility] Care Plan - Cirrhosis Decompensated Tasks No Marv Myrick M.D., M.P.H. Cirrhosis On Ramp Tasks Care Plan Cirrhosis On Ramp Tasks No Marv Myrick M.D., M.P.H. [place] Care Plan - Nicotine Dependency Chronic Care Plan Cirrhosis On Ramp Tasks No Marv Myrick M.D., M.P.H. Continue on Care Plan Care Plan Continue on Care Plan No Patient, Online Services Continue on Care Plan Care Plan Continue on Care Plan No Patient, Online Services Continue on Care Plan Care Plan Continue on Care Plan No Patient, Online Services Medical Devices Implanted Type Area Clinical Athletic Instructor Device Identifier Shelf Expiration Date Model / Serial / Lot [facility] Endo 235 - [id number] Implanted:Qty: 1 on 02/12/2021 by Markie March M.D. at [facility] [employer] e.g. pins/screws /rods [employer] [id number] 09/01/2023 [id number] / / [id number] Description:Implanted in duo denum-polypectomy site. [facility] Endo 235 - [id number] Implanted:Qty: 1 on 02/12/2021 by Markie March M.D. at [facility] [employer] e.g. pins/screws /rods [employer] [id number] 09/01/2023 [id number] / / [id number] Description:Implanted in duo denum at polypectomy site. Hip Implant Hip Implant Hip Description:Right hip replac ement Lnr X3 Mary Kate 40 - [id number] Implanted:Qty: 1 on 05/13/2023 by Pete Rojas M.D. at [facility] Hip Implant Left: Hip Marta 02/15/2028 723-00-4 0E / / [id number] Jaylonfina Audi Cardenas Chl 52e - [id number] Implanted:Qty: 1 on 05/13/2023 by Pete Rojas M.D. at [facility] Hip Implant Left: Hip [place] 03/02/2028 702-04-5 2E / / [id number] A Kn Stm Blx -2.5 - [id number] Implanted:Qty: 1 on 05/13/2023 by Pete Rojas M.D. at [facility] Hip Implant Left: Hip Marta 03/16/2028 6519-T-0 25 / / [id number] Fem Hd Blx +0x40 - [id number] Implanted:Qty: 1 on 05/13/2023 by Pete Rojas M.D. at [facility] Hip Implant Left: Hip [place] 02/16/2028 6519-1-0 40 / / [id number] Hip Stm Ins Hofst Sz8 61j125 - [id number] Implanted:Qty: 1 on 05/13/2023 by Pete Rojas M.D. at [facility] Hip Implant Left: Hip [place] 01/07/2026 7000-660 8 / / [id number] Shoulder Implant Shoulder Implant Shoulder Description:Right shoulder [...] 12/07/2024 12:07 PM CDT Cirrhosis Nonalcoholic (HCC) US ABDOMEN COMPLETE RAD - Routine (most inpatients and all outpatients) 12/07/2024 12:03 PM CDT Cirrhosis Nonalcoholic (HCC) BASIC METABOLIC PANEL, S/P Routine 10/17/2024 1:21 PM CDT Ascites BASIC METABOLIC PANEL, S/P Routine 09/28/2024 8:34 AM CDT Cirrhosis Nonalcoholic (HCC) LDA ANE ENDOTRACHEAL AIRWAY Routine 09/24/2024 11:23 PM CDT UPPER GI ENDOSCOPY Routine 09/24/2024 10:50 PM CDT EGD (ESOPHAGOGASTRODUODE NOSCOPY) Routine 09/24/2024 10:50 PM CDT BASIC METABOLIC PANEL, S/P Routine 09/21/2024 8:27 AM CDT Cirrhosis Nonalcoholic (HCC) BASIC METABOLIC PANEL, S/P Routine 09/14/2024 9:08 AM CDT Cirrhosis Nonalcoholic (HCC) HEMOGLOBIN A1C, B Timed 08/03/2024 4:0 4 AM CDT from Last 3 Months or Most Recently Relevant to Health Maintenance Results * (ABNORMAL) Hepatic Function Panel (12/07/2024 [...] Final Result [facility] [address] [place] [address], [facility] D[facility] [address] [place] [address] * (ABNORMAL) CBC no call back, reflex [...] LAB BLOOD NON AD D-ON Final Result Performing Organization Address [facility]/ZIP Co de Phone Number [facility] [address] [place] [address], [facility] D[facility] [address] [place] [address] DHPM [facility] [address] [place] [address] * AFP (Alpha-Fetoprotein) L3% and Total, Hepatocellular Carcinoma Tumor Marker (12/07/2024 12:07 PM CDT) Pathologist [facility] Total AFP, S 2.0 <4.7 ng/mL 12/08/2024 8:53 AM CDT [facility] %L3 <0.5 <10 % 12/08/2024 8:53 AM CDT [facility] Comment: ----ADDITIONAL INFORMATION---- The testing method is isotachophoresis with laser-induced fluorescence manufactured by [employer] and performed on the i30. Values obtained [...] BLOOD ADD-ON Final Result Performing Organization Address [facility]/ZIP Co de Phone Number [facility] [address] [place] [address] [facility] [address] [place] [address] * (ABNORMAL) Basic Metabolic Panel (12/07/2024 12:07 PM CDT) Only the most recent of5 resultswithin the time period is included. Potassium, S 4.4 3.6 - 5.2 mmol/L [...] Result [facility] [address] [place] [address], [facility] D[facility] [address] [place] [address] * US Abdomen Complete (12/07/2024 12:03 PM [...] LI-RADS is supported and endorsed by the [employer]. More information can be found on the following link [email or web address] Gallbladder: Again noted is mild [...] LI-RADS is supported and endorsed by the [employer]. More information can be found on the following [email or web address] Gallbladder: Again noted is mild [...] IMG US PROCEDURE S Final Result * LDA ANE ENDOTRACHEAL AIRWAY (09/24/2024 11:23 PM CDT) Narrative Graciela Snowden APRN, CRNA, DNAP - 09/24/2024 11:23 PM CDT Graciela Snowden APRN, CRNA, DNAP 09/24/2024 11:30 PM Airway Date/Time: 09/24/2024 11:23 PM Performed by: Graciela Snowden APRN, CRNA, DNAP Authorized by: Graciela Snowden APRN, CRNA, DNAP Patient location during procedure: OR / Procedure Area PROCEDURE DETAILS: Mask difficulty assessment: not attempted Final airway type: video laryngoscope Laryngeal Manipulation: no Final best view of glottic structures - Cormack/Lehane Score: grade 1 ETT location: oral VL device: glide scope Katy scope blade size: 4 Tube size: 7.5 ETT distance at teeth/gum: 22 Oral tube [...] Procedure outcome: successful Notable Events: no complications Graciela A Slovak BODY PRESS OPERATOR, CAFETERIA SERVER, DNAP ANESTHESIA ORDERA BLES Final Result * Upper GI Endoscopy (09/24/2024 10:50 PM CDT) 09/24/2024 10:5 0 PM CDT Impressions [facility] - 09/24/2024 11:57 PM CDT Post-op Diagnoses: - Food in the lower third of the esophagus. Removal was successful. 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 Vypgxku-koa-lytyo balloon dilation to 15 mm resulted in a mild mucosal disruption and improvement in esophageal diameter. 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 Scarring from previous treatment and complete eradication of varices across the distal 5 cm of the esophagus. - Z-line regular, 40 cm from the incisors. - Portal hypertensive gastropathy. - A single gastric polyp. - Erythematous duodenopathy. Narrative [facility] - 09/24/2024 11:57 PM CDT Navjot 6 GI GI Patient Name: Niko Rodriguez Date of : 1950 Age: 73 Procedure Date: 09/24/2024 Procedure: Upper GI endoscopy Providers: Alice Clark MD, Max Frazier MD, PHD (Fellow) Referring Provider: Anne-Marie Eugene Pre-op Diagnoses: Foreign body in the esophagus Recommendation: - Patient should remain on a soft mechanical diet until repeat upper endoscopy in 2-4 weeks for repeat dilation of distal esophageal stricture. - Please obtain esophagram prior to next endoscopy. Findings: A food bolus and retained food particles was found in the lower third of the esophagus. Removal was accomplished by lubricating the food bolus with oil and gently advancing the food bolus to the stomach. 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 One benign-appearing, intrinsic moderate (circumferential scarring or stenosis; an endoscope may pass) stenosis was found 38 cm from the incisors. This stenosis measured 1.2 cm (inner diameter) x less than one cm (in length). The stenosis was traversed. A TTS dilator was passed through the scope. Dilation with a 12-13.5-15 mm x 5.5 cm CRE balloon (to a maximum balloon size of 15 mm) dilator was performed. The dilation site was examined and showed mild mucosal disruption, moderate improvement in luminal narrowing and no perforation. Three columns of grade I varices were found in the mid esophagus. Scarring from prior treatment was visible. The Z-line was regular and was found 40 cm from the incisors. Mild portal hypertensive gastropathy was found in the gastric body. A single 5 mm sessile polyp was found in the gastric body. Diffuse mildly erythematous mucosa was found in the entire duodenum. Prominent meghan's glands in the duodenal bulb. Procedural Details: The patient was seen, evaluated, history reviewed, airway and heart-lung exams were performed by licensed provider and were satisfactory for planned level of sedation care. The risks, benefits and alternatives for the procedure and sedation were discussed and informed consent was obtained. A procedural pause was conducted in the presence of assisting personnel to verify the correct patient identity and procedure to be performed. Throughout the procedure, the patient's blood pressure, pulse, and oxygen saturations were monitored continuously. The Gastroscope was introduced under direct vision through the mouth, and advanced to the second part of duodenum. The upper GI endoscopy was accomplished without difficulty. The patient tolerated the procedure well. Estimated Blood Loss: Estimated blood loss: none. Complications: No immediate complications. Sedation: Anesthesia was administered by an anesthesia professional. The following parameters were monitored: oxygen saturation, heart rate, blood pressure, respiratory rate, EKG, adequacy of pulmonary ventilation, and response to care. Attending Participation: I was present and participated during the entire procedure, including non-espana portions. Alice Clark MD 09/24/2024 11:57:41 PM This report has been signed electronically. Number of Addenda: 0 us Anne-Marie Eugene M.D. GI PROCEDURE ORDERABLE S Final Result [employer] NA from Last 3 Months Additional Health Concerns Active Problems Noted Date Diagnosed Date [facility] Care Plan - Cirrhosis Decompensated Tasks 09/07/2024 Cirrhosis On Ramp Tasks 09/07/2024 Continue on Care Plan 10/05/2024 Continue on Care Plan 10/05/2024 Continue on Care Plan 11/01/2024 Insurance MEDICARE [facility] Advance Directives For more information, please contact: [phone] * Full Code (Latest Code Status on [...] Answer Comments Full Code: Discussed Care Teams Night Custodian Relationship Specialty Start Date End Date Elsewhere, Pcp PCP - General Internal Medicine 08/19/21
[2024-12-12 21:53] VITALS: BP 109/70; PULSE 86; RESP 16; TEMP 36.4; O2SAT 96; BMI 20.5
--- OUTSIDE RECORDS SUMMARY | 2024-12-12 21:53 | XMS_ITS | Encounter Summary ---
Author Organization [facility] Address [address] [place] [id number] Care Team Providers Care Data Collection Interviewer Name Role Phone Elsewhere, Pcp Primary Care Provider Unavailabl e Reason for Visit * Reason Onset Date Comments Hepatobiliary 10/06/2024 Symptom Assessment 10/06/2024 Encounter Details Date Type Department Care Team (Latest Contact Info) Description 10/06/2024 Clinical Communication Division of Gastroenterology in [place], [place] [address] [place] [phone] Marv Myrick M.D., M.P.H. [address] [place] [phone] Hepatobiliary; Symptom Assessment Social History Tobacco Use Types Packs/Day Years Used Date Smoking Tobacco: Never Smokeless Tobacco: Never Alcohol Use Standard Drinks/Week Comments Not Currently 0 (1 standard drink = 0.6 oz pur e alcohol) Don t drink [facility] Utilities Answer Date Recorded In the [...] things needed for daily living? No 08/29/2024 Housing Stability Answer Date Recorded What is your living situation today? I have a [facility] place to live 08/29/2024 Education Answer Date Recorded What is the highest level of school you have completed or the highest degree you have received? 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 [address] [place] [address] documented as of this encounter Goals Goal Patient Goal Type Associated Problems Recent Progress Patient-Stated? Author [facility] Care Plan - Cirrhosis Decompensated Tasks Care Plan [facility] Care Plan - Cirrhosis Decompensated Tasks No Marv Myrick M.D., M.P.H. Cirrhosis On Ramp Tasks Care Plan Cirrhosis On Ramp Tasks No Marv Myrick M.D., M.P.H. [place] Care Plan - Nicotine Dependency Chronic Care Plan Cirrhosis On Ramp Tasks No Marv Myrick M.D., M.P.H. Continue on Care Plan Care Plan Continue on Care Plan No Patient, Online Services Continue on Care Plan Care Plan Continue on Care Plan No Patient, Online Services documented as of this encounter Visit Diagnoses Not on filedocumented in this encounter Additional Health Concerns Active Problems Noted Date Diagnosed Date [facility] Care Plan - Cirrhosis Decompensated Tasks 09/07/2024 Cirrhosis On Ramp Tasks 09/07/2024 Continue on Care Plan 10/05/2024 Continue on Care Plan 10/05/2024 documented as of this encounter Care Teams Data Collection Interviewer Relationship Specialty Start Date End Date Elsewhere, Pcp PCP - General Internal Medicine 08/19/21 documented as of this encounter
--- OUTSIDE RECORDS SUMMARY | 2024-12-12 21:53 | XMS_ITS | Encounter Summary ---
Author Organization [facility] Address [address] [place] [address] Care Team Providers Care Special Procedure Technologist Name Role Phone Elsewhere, Pcp Primary Care Provider Unavailabl e Encounter Details Date Type Department Care Team (Late st Contact Info) Description 01/21/2016 Historical Ophthalmology RST OPH Jemal Almeida M.D. [address] [place] [address] Social History Tobacco Use Types Packs/Day Years Used Date Smoking Tobacco: Never Assessed Sex and Gender Information Value Date Recorded Sex Assigned at Male 02/12/2021 6:18 PM ICE BAG ASSEMBLER Legal Sex Male 9:16 PM ICE BAG ASSEMBLER Gender Identity Male 11/11/2020 11:30 AM CDT [...] the right CDM Reports - EYEGEN Id: [id number] Status: Fnl documented in this encounter Plan of Treatment Upcoming Encounters Date Type Department Care Team (Latest Contact Info) Description 12/26/2024 4:00 PM CDT Clinical Communication Virtual Review in [address] [phone] 01/02/2025 4:20 PM CDT Telemedicine Division of Gastroenterology in [address] [phone] Marv Myrick M.D., M.P.H. [address] [place] [phone] documented as of this encounter Visit Diagnoses Not on filedocumented in this encounter Additional Health Concerns Infection Onset Date Last Indicated Resolved Time COVID19 Pending 02/11/2021 02/11/2021 02/11/2021 3 :10 PM ICE BAG ASSEMBLER COVID19 Pending 04/14/2021 04/14/2021 04/14/2021 2 :15 PM ICE BAG ASSEMBLER COVID19 Pending 04/14/2021 04/15/2021 04/15/2021 1 0:43 PM ICE BAG ASSEMBLER COVID19 Pending 08/05/2021 08/05/2021 08/05/2021 4 :09 PM CDT COVID19 Pending 10/23/2021 10/23/2021 10/23/2021 3 :08 PM CDT COVID19 Pending 09/09/2023 09/10/2023 09/10/2023 2 :15 AM CDT COVID19 Pending 08/02/2024 08/02/2024 08/02/2024 6 :41 PM CDT documented as of this encounter Care Teams Special Procedure Technologist Relationship Specialty Start Date End Date Elsewhere, Pcp PCP - General Internal Medicine 08/19/21 documented as of this encounter
--- OUTSIDE RECORDS SUMMARY | 2024-12-12 21:53 | XMS_ITS | Encounter Summary ---
Author Organization [facility] Address [address] [place] [address] Care Team Providers Care Vocational Evaluator Name Role Phone Elsewhere, Pcp Primary Care Provider Unavailabl e Reason for Visit * Reason Onset Date Comments Hepatobiliary 10/06/2024 Encounter Details Date Type Department Care Team (Latest Contact Info) Description 10/06/2024 Results Follow-Up Division of Gastroenterology in [place], [place] [address] [place] [phone] Marv Myrick M.D., M.P.H. [address] [place] [phone] Basic Metabolic Panel Social History Tobacco Use Types Packs/Day Years Used Date Smoking Tobacco: Never Smokeless Tobacco: Never Alcohol Use Standard Drinks/Week Comments Not Currently 0 (1 standard drink = 0.6 oz pur e alcohol) Don t drink [facility] Utilities Answer Date Recorded In the [...] [facility] 08/29/2024 Education Answer Date Recorded What is the highest level of school you have completed or the highest degree you have received? Bachelor's degree (e.g., BA, AB, BS) 11/11/2020 Sex and Gender Information Value Date Recorded Sex Assigned at Male 02/12/2021 6:18 PM APPRAISAL ANALYST Legal Sex Male 9:16 PM APPRAISAL ANALYST Gender Identity Male 11/11/2020 11:30 AM CDT Sexual Orientation Straight 11/11/2020 11 :30 AM CDT documented as of this encounter Miscellaneous Notes * Result Encounter Note - Marv Myrick M.D., M.P.H. - 10/06/2024 9:08 AM CDT Hi Mr Jennings Your labs from last week look good. Let me know if you start having more fluid buildup in the abdomen Best, Dr. Cobos documented in this encounter Plan of Treatment Upcoming Encounters Date Type Department Care Team (Latest Contact Info) Description 12/26/2024 4:00 PM CDT Clinical Communication Virtual Review in [place], [place] [address] [place] [address] 01/02/2025 4:20 PM CDT Telemedicine Division of Gastroenterology in [place], [place] [address] [place] [phone] Marv Myrick M.D., M.P.H. [address] [place] [phone] documented as of this encounter Goals Goal Patient Goal Type Associated Problems Recent Progress Patient-Stated? Author [facility] Care Plan - Cirrhosis Decompensated Tasks Care Plan [facility] Care Plan - Cirrhosis Decompensated Tasks No Marv Myrick M.D., M.P.H. Cirrhosis On Ramp Tasks Care Plan Cirrhosis On Ramp Tasks No Marv Myrick M.D., M.P.H. [place] Care Plan - Nicotine Dependency Chronic Care Plan Cirrhosis On Ramp Tasks No Marv Myrick M.D., M.P.H. Continue on Care Plan Care Plan Continue on Care Plan No Patient, Online Services Continue on Care Plan Care Plan Continue on Care Plan No Patient, Online Services documented as of this encounter Results * (ABNORMAL) Basic Metabolic Panel (10/17/2024 1:21 PM CDT) [facility] Potassium, P 4.6 3.6 - 5.2 mmol/L 10/17/2024 2:37 PM CDT [facility] Sodium, P 130(L) 135 - 145 mmol/L 10/17/2024 2:37 PM CDT [facility] Chloride, P 100 98 - 107 mmol/L 10/17/2024 2:37 PM CDT [facility] Bicarbonate, P 22 22 - 29 mmol/L 10/17/2024 2:37 PM CDT [facility] Anion Gap, P 8 7 - 15 10/17/2024 2:37 PM CDT [facility] BUN (Blood Urea Nitrogen), P 21 8 - 24 mg/dL 10/17/2024 2:37 PM CDT [facility] Creatinine 1.30 0.74 - 1.35 mg/dL 10/17/2024 2:37 PM CDT [facility] Estimated GFR (eGFR) 57(L) >=60 mL/min/BSA 10/17/2024 2:37 PM CDT [facility] Comment: Estimated GFR calculated using the 2020 CKD_EPI creatinine equation. Calcium, Total, P 9.4 8.8 - 10.2 mg/dL 10/17/2024 2:37 PM CDT [facility] Glucose, P 132 70 - 140 mg/dL 10/17/2024 2:37 PM CDT [facility] Blood (Blood, Venous) 10/17/2024 1:21 PM CDT 10/17/2024 2:25 PM CDT Marv Myrick M.D., M.P.H. LAB BLOOD ADD-ON Final Result [facility] [address] [place] [address], [facility] [place] [address] [place] [address] documented in this encounter Visit Diagnoses Diagnosis Ascites- Primary documented in this encounter Additional Health Concerns Active Problems Noted Date Diagnosed Date [facility] Care Plan - Cirrhosis Decompensated Tasks 09/07/2024 Cirrhosis On Ramp Tasks 09/07/2024 Continue on Care Plan 10/05/2024 Continue on Care Plan 10/05/2024 documented as of this encounter Care Teams Vocational Evaluator Relationship Specialty Start Date End Date Elsewhere, Pcp PCP - General Internal Medicine 08/19/21 documented as of this encounter
--- OUTSIDE RECORDS SUMMARY | 2024-12-12 21:53 | XMS_ITS | Encounter Summary ---
Author Organization [facility] Address [address] [place] [address] Care Team Providers Care Gas Truck Driver Name Role Phone Elsewhere, Pcp Primary Care Provider Unavailabl e Encounter Details Date Type Department Care Team (Latest Contact Info) Description 10/20/2024 Results Follow-Up Division of Gastroenterology in [place], [place] [address] [place] [address] Marv Myrick M.D., M.P.H. [address] [place] [address] Basic Metabolic Panel Social History Tobacco Use Types Packs/Day Years Used Date Smoking Tobacco: Never Smokeless Tobacco: Never Alcohol Use Standard Drinks/Week Comments Not Currently 0 (1 standard drink = 0.6 oz pur e alcohol) Don t drink [facility] Utilities Answer Date Recorded [...] your living situation today? I have a [facility] place to live 08/29/2024 Education Answer Date Recorded What is the highest level of school you have completed or the highest degree you have received? Bachelor's degree (e.g., BA, AB, BS) 11/11/2020 Sex and Gender Information Value Date Recorded Sex Assigned at Male 02/12/2021 6:18 PM CHOKE REAMER Legal Sex Male 9:16 PM CHOKE REAMER Gender Identity Male 11/11/2020 11:30 AM CDT Sexual Orientation Straight 11/11/2020 11 :30 AM CDT documented as of this encounter Miscellaneous Notes * Result Encounter Note - Marv Myrick M.D., M.P.H. - 10/20/2024 2:14 PM CDT Hi Mr Jennings Your labs from October 17 are stable. Hopefully you are not retaining more fluid but please let me know if you are Best, Dr Cobos documented in this encounter Plan of Treatment Upcoming Encounters Date Type Department Care Team (Latest Contact Info) Description 12/26/2024 4:00 PM CDT Clinical Communication Virtual Review in [place], [place] [address] [place] [phone] 01/02/2025 4:20 PM CDT Telemedicine Division of Gastroenterology in [place], [place] [address] [place] [phone] Marv Myrick M.D., M.P.H. [address] [place] [address] documented as of this encounter Goals Goal Patient Goal Type Associated Problems Recent Progress Patient-Stated? Author [facility] Care Plan - Cirrhosis Decompensated Tasks Care Plan [facility] Care Plan - Cirrhosis Decompensated Tasks No Marv Myrick M.D., M.P.H. Cirrhosis On Ramp Tasks Care Plan Cirrhosis On Ramp Tasks No Marv Myrick M.D., M.P.H. [place] Care Plan - Nicotine Dependency Chronic Care [...] Concerns Active Problems Noted Date Diagnosed Date [facility] Care Plan - Cirrhosis Decompensated Tasks 09/07/2024 Cirrhosis On Ramp Tasks 09/07/2024 Continue on Care Plan 10/05/2024 Continue on Care Plan 10/05/2024 documented as of this encounter Care Teams Gas Truck Driver Relationship Specialty Start Date End Date Elsewhere, Pcp PCP - General Internal Medicine 08/19/21 documented as of this encounter
--- OUTSIDE RECORDS SUMMARY | 2024-12-12 21:53 | XMS_ITS | Clinical Summary ---
Author Organization [facility] Address [address] [place] [address] Care Team Providers Care Executive Officer Special Warfare Team Name Role Phone Fay Virk DO Primary Care Provider [phone] Allergies Active Allergy Reactions Criticality Noted Date [...] mg) by mouth at bedtime. 31 Tablet 06/02/19 24 Active Additional Information Patient not taking.Reported on 11/14/2024 omeprazole (PRILOSEC) 20 mg Delayed-Release capsuleIndications :Cirrhosis, non-alcoholic (HC),Portal hypertension with esophageal varices (HC),Abdominal bloating TAKE 1 CAPSULE (20 MG) BY MOUTH ONCE DAILY BEFORE A MEAL. 90 Capsule 2 05/27/19 25 Active carvediloL 3.125 mg tablet Take 3.125 mg by mouth two times daily with meals. 05/26/19 25 Active Multivits,Ca,Adwolf als-Iron-FA 9 mg iron-400 mcg tablet Take 1 Tablet by mouth once daily. 08/07/19 25 Active sennosides-docusat e (8.6-50 mg) tablet Take 2 Tablets by mouth two times daily. 08/28/19 24 Active spironolactone 100 mg tablet Take 100 mg by mouth. 08/06/19 25 Active rosuvastatin (CRESTOR) 20 mg tabletIndications: Hyperlipidemia, unspecified hyperlipidemia type Take 1 Tablet (20 mg) by mouth at bedtime. 90 Tablet 2 11/15/19 25 Active furosemide (LASIX) 20 mg tabletIndications: Other ascites Takes 1 tablet once a day then every other day take 2 tablets 450 Tablet 3 11/15/19 25 Active Vitamin B-1 (mononitrate) 100 mg tablet Take 2 Tablets by mouth once daily. 09/04/19 25 Active empagliflozin (JARDIANCE) 25 mg tabletIndications: Ascites of liver,Type 2 diabetes mellitus without complication, without long-term current use of insulin (HC) Take 1 Tablet (25 mg) by mouth once daily. 90 Tablet 3 11/16/19 25 Active rosuvastatin (CRESTOR) 20 mg tabletIndications: Hyperlipidemia, unspecified hyperlipidemia type TAKE 1 TABLET (20 MG) BY MOUTH AT BEDTIME. 90 Tablet 2 08/30/19 24 025 Discontin ued(Reord er (E-cancel not sent)) furosemide (LASIX) 20 mg tabletIndications: Other ascites Three 20 mg tablets in the morning and two 20 mg tablets at night 450 Tablet 3 12/01/19 24 025 Discontin ued(Reord er (E-cancel not sent)) metFORMIN (GLUCOPHAGE XR) 500 mg Extended-Release tabletIndications: Type 2 diabetes mellitus without complication, without long-term current use of insulin (HC) TAKE 1 TABLET (500 MG) BY MOUTH TWO TIMES DAILY WITH MEALS. 180 Tablet 2 02/29/20 24 025 Discontin ued(*Med complete/ Regimen complete/ Level of care change) Jardiance 10 mg tabletIndications: Ascites of liver,Type 2 diabetes mellitus without complication, without long-term current use of insulin (HC) TAKE ONE TABLET BY MOUTH DAILY 90 Tablet 4 05/02/19 25 025 Discontin ued(Reord er (E-cancel not sent)) eplerenone 50 mg tablet Take 100 mg by mouth once daily. 025 Discontin ued(*Med complete/ Regimen complete/ Level of care change) empagliflozin (Jardiance) 10 mg tabletIndications: Ascites of liver,Type 2 diabetes mellitus without complication, without long-term current use of insulin (HC) Take 1 Tablet (10 mg) by mouth once daily. 90 Tablet 4 11/15/19 25 025 Discontin ued(*Medi cation adjustmen t) Active Problems Problem Noted Date Diagnosed Date Stage 3a chronic kidney disease 11/14/2024 Rheumatoid arthritis, involv ing unspecified site, unspecified [...] Encounters Date Type Department Care Team Description 11/14/2024 12:25 PM CDT Office Visit [facility] [address] [place] [address] Fay Virk DO Diabetes; Medication Management 11/14/2024 Travel from Last 3 Months Immunizations Immunization Administration Dates Next Due COVID-19 vaccine (Moderna 10 0mcg/0.5mL) PF, MDV 06/22/2020,05/23/2020 Hepatitis B, Unspecified 05/22/1992,12/20/1991,0 11/22/1991 [...] Answer Date Recorded PHQ-2 TOTAL SCORE 0 11/14/2024 Social Connections Answer Date Recorded Do you [...] Sign Reading Time Taken Comments Blood Pressure 102/68 11/14/2024 12:16 PM CDT Pulse 60 11/14/2024 12:16 PM CDT Temperature 36.6 C (97.9 F) 06/29/2023 10:28 AM CDT Respiratory Rate 16 06/29/2023 10:2 8 AM CDT Oxygen Saturation 98% 11/14/2024 12: 16 PM CDT Inhaled Oxygen Concentration - - Weight 58.9 kg (129 lb 12.8 oz) 025 12:16 PM CDT Height 172 cm (5' 7.7) 11/14/2024 12:1 6 PM CDT Body Mass Index 19.91 11/14/2024 12:16 PM CDT Plan of Treatment Health Maintenance Due Date Last Done Comments Zoster (shingles) series for age 50+ (2 of 3) 12/02/2012 10/07/2012 Tetanus booster 09/01/2021 09/02/2011, 12/01/2007 Medicare Wellness for age 65+ 05/13/2023 05/12/2022, 08/27/2020 RSV vaccine for adults or (1 - 1-dose 75+ series) 09/26/2023 COVID-19 vaccine series (2024- season) 2024 09/18/2021, 03/20/2021, 06/22/2020, Additional history exists Influenza Vaccine (#1) 2024 , 12/23/2017, 12/22/2007, Additional history exists BMI (ht and wt on same day) for age 18+ 11/14/2025 11/14/2024, 08/11/2024, 10/13/2022, Additional history exists Depression screening for age 12+ 11/14/2025 11/14/2024, 05/12/2022, 04/01/2022, Additional history exists Hepatitis B series for 19+ Completed 05/22, 12/20/1991, 11/22/1991 Pneumococcal series for age 50+ Completed 09/29/2014, 09/28/2013 Hepatitis C screening for age 18-79 Addressed 08/25/2018 (Verified in Care Everywhere or Patient Record) Overridden with the intention of not completing the topic Procedures Procedure Name Priority Date/Time Associated Diagnosis Comments HEMOGLOBIN A1C MONITORING (POCT) Routine 11/14/2024 1:12 PM CDT Type 2 diabetes mellitus without complication, without long-term current use of insulin (HC) from Last 3 Months Results * (ABNORMAL) HEMOGLOBIN A1C MONITORING (POCT) (11/14/2024 1:12 PM CDT) POC HEMOGLOBIN A1C 7.6(H) <6.0 % OF TOTAL HGB 11/14/2024 1:21 PM CDT [facility] Comment: Any point of care results exhibiting inconsistency with the patient's clinical status should be repeated using a different testing method. Blood BLOOD SPECIMEN / Unknown [facility] / Unknown 11/14/2024 1:12 PM CDT 11/14/2024 1:12 PM CDT Fay Virk DO CHEMISTRY Final Result [facility] [address] [place] [address], [place] [phone] [facility] [address] [place] [address], [place] [phone] from Last 3 Months Insurance MEDICARE PART B HB ONLY SPOONER CROSS OF NON-NH-ITS MEDICARE PB ONLY BLUE CROSS OF NON-NH-ITS MEDICARE PB ONLY Care Teams Executive Officer Special Warfare Team Relationship Specialty Start Date End Date Fay Virk DO [address] [place] [address] PCP - General Family Practice 06/11/20
--- NOTE | 2024-12-12 22:04 | ED.ABDPAIN ---
HPI - Abdominal Pain General Time Seen by Provider: 22:04 Date Seen: 12/12/24 Chief Complaint: Abdominal Pain Stated Complaint: stomach pain Time Seen by Provider: 12/12/24 21:51 Source: patient and RN notes reviewed Mode of arrival: ambulatory Limitations: no limitations History of Present Illness HPI narrative: This 74-year-old male is coming in tonight with abdominal pain starting after eating earlier today. He had a premade sandwich that was purchased from this door about 2 or 3:00 a.m.. Sometime after that he started with upper abdominal pain, more epigastric. He notes he will feel like this if he eats raw onions. Does not believe there onions on this. He has noted no fevers or chills. He tried an antacid at home, did not help. He has had increased burping, passed some flatus. 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 He follows at [facility] for this. He has had a history of ascites, last paracentesis was February. His notes that they made some medication changes to his regimen and that had really helped. He was hospitalized here in August with hepatic encephalopathy with an ammonia level of 95. This resolved with IV fluids and lactulose. Patient is never had pancreatitis before, does note he still has his gallbladder. He is known to have chronic thrombocytopenia with his disease. Related Data Home Medications ?Medication ?Instructions ?Recorded ?Confirmed cholecalciferol (vitamin D3) 125 125 mcg PO DAILY 05/16/23 12/12/24 mcg (5,000 unit) capsule empagliflozin 10 mg tablet 10 mg PO DAILY 05/16/23 12/12/24 (Jardiance) ferrous gluconate 324 mg (38 mg 324 mg PO DAILY 05/16/23 12/12/24 iron) tablet metformin 500 mg tablet,extended 500 mg PO BIDWM 05/16/23 12/12/24 release 24 hr Held on 09/03/24. Instructions: Resume on 09/12/24. Until you see your doc at [facility]. omeprazole 20 mg capsule,delayed 20 mg PO DAILY 05/16/23 12/12/24 release rosuvastatin 20 mg tablet 20 mg PO HS 05/16/23 12/12/24 multivitamin (Daily Multi-Vitamin 1 tab PO DAILY 09/02/24 12/12/24 tablet) sennosides 8.6 mg-docusate sodium 2 tab-cap PO DAILY PRN 09/02/24 12/12/24 50 mg tablet Previous Rx's ?Medication ?Instructions ?Recorded furosemide 20 mg tablet 40 mg (2 x 20 mg) PO DAILY #60 tabs 09/03/24 lactulose 10 gram/15 mL oral 20 g (30 mL) PO BID #3,785 mL 09/03/24 solution lactulose 20 gram oral packet 20 g PO BID #60 ea 09/03/24 rifaximin 550 mg tablet (Xifaxan) 550 mg PO BID #60 tabs 09/03/24 spironolactone 100 mg tablet 200 mg (2 x 100 mg) PO DAILY #60 09/03/24 tabs thiamine mononitrate (vit B1) 100 200 mg (2 x 100 mg) PO DAILY #30 09/03/24 mg tablet (Vitamin B-1 tabs (mononitrate)) sucralfate 1 gram tablet 1 g PO BID #14 tabs 12/13/24 Allergies Allergy/AdvReac Type Severity Reaction Status Date / Time acetaminophen (From Tylenol) Allergy Severe Autoimmune Verified 12/12/24 21:59 Liver Disease celecoxib (From Celebrex) AdvReac Severe Acute Verified 12/12/24 21:59 Renal Failure NSAIDS (Non-Steroidal AdvReac Severe Acute Verified 12/12/24 21:59 Anti-Inflamma Renal Failure Review of Systems Status of ROS Reports: 6 or more systems reviewed and unremarkable except as noted in History and below [facility] Medical History Malnutrition related to chronic disease ?E46 - Unspecified protein-calorie malnutrition (ICD-10) Hepatic encephalopathy ?K76.82 - Hepatic encephalopathy (ICD-10) History of DVT (deep vein thrombosis) ?Z86.718 - Personal history of other venous thrombosis and embolism (ICD-10) Hyperlipidemia ?E78.5 - Hyperlipidemia, unspecified (ICD-10) Type 2 diabetes mellitus, without long-term current use of insulin ?E11.9 - Type 2 diabetes mellitus without complications (ICD-10) GERD (gastroesophageal reflux disease) ?K21.9 - Gastro-esophageal reflux disease without esophagitis (ICD-10) Autoimmune hepatitis ?K75.4 - Autoimmune hepatitis (ICD-10) Surgical History History of left inguinal hernia repair ?Z98.890 - Other specified postprocedural states (ICD-10) ?Z87.19 - Personal history of other diseases of the digestive system (ICD-10) Social History Narrative: , nonsmoker, retired What is your current living situation?: I presently have a place to live Problems where you live: no known problems Problems where you live details: NA In the past 12 months, utilities in danger of being shut off: no In past 12 months, lack of transportation kept you from medical appts, meetings, work, or getting things needed for daily living: no In the past 12 mos, have been you worried that your food would run out before you had money to buy more?: never true In the past 12 mos, the food you bought just didn't last and you didn't have money to buy more?: never true Highest level of school completed/degree received: Bachelor's degree Smoking Status: Never smoker Do you use any of these nicotine containing products: None Second hand tobacco smoke exposure: No How often do you have a drink containing alcohol: never How often do you have six or more drinks on one occasion: Never AUDIT-C Alcohol total score: 0 Non-prescribed substance use: denies use Caffeine: No How often does anyone, including family, friends and others, physically hurt you: never How often does anyone, including family, friends and others, insult or talk down to you: never How often does anyone, including family, friends and others, threaten you with harm: never How often does anyone, including family, friends and others, scream or curse at you: never service: No Exam Const: Vital Signs, click to edit/add: Vital Signs - 24 hr 12/12/24 21:53 12/12/24 22:09 Temperature 97.6 F Pulse Rate [Pulse Oximeter] 86 Respiratory Rate 16 Blood Pressure [Ri ght Upper Arm] 109/70 Pulse Oximetry 96 96 Oxygen Delivery Me thod Room Air This 74-year-old male is alert, interactive, no apparent distress but looks uncomfortable. His skin looks brownish yellow, eyes look like they have some jaundice but otherwise conjugate gaze. He is speaking in complete sentences, lucid and oriented. Lungs are clear, no wheezing or crackles, no tachypnea, no accessory muscle use. CV regular rate and rhythm, no murmur, normal S1-S2. Abdomen has bowel sounds, is not distended from my palpation, he has some mild epigastric discomfort without rebound or guarding. Do not note any organomegaly. Documenting provider has reviewed patient's vital signs: yes Course Course ED Course: This 74-year-old male is coming in with epigastric/upper abdominal pain. This could be something as simple as dyspepsia from the stand which he ate earlier to things like biliary disease with his gallbladder, pancreatitis, worsening ascites. He is not febrile which makes spontaneous bacterial peritonitis less likely but does need to be considered in this evaluation. We are going to start with a GI cocktail, see if that helps at all. If that does not work, will moved to some morphine for this patient, will give him some Zofran for nausea. We will establish an IV, get CT of his abdomen pelvis with IV contrast. Will get a full complement of labs as well. Have discussed with him that if he is surgical, he is not likely a candidate for us here given his comorbid medical conditions. Reevaluation(s) Time of Reevaluation #1: 22:57 Reevaluation #1: GI cocktail has not helped at all. Will order morphine. Time of Reevaluation #2: 23:55 Reevaluation #2: Have reviewed CT findings and provided copy of the results. It would seem that he has some esophagitis and gastritis. Have done some literature research, his omeprazole really should be at 20 mg daily, do not know that I can safely increase this dosing because of his liver disease. He does have some level of kidney dysfunction, I think we can try some sucralfate maybe twice a day. His kidneys have to clear the aluminum. I have asked them to touch base with his liver team tomorrow, we did push the CT imaging down to [place]. He overall in his labs looks to be stable. His ammonia is not excessively high and he is not exhibiting any encephalopathic changes from the discussions I have had with him. He does feel better after the GI cocktail, it did start to work some by the time the nurse went in to give the morphine. I have discussed with them that there really is no quick fix for this. He may need to get an EGD. His notes that he has had a scope before, had to have a dilation. I do not think he needs emergent transfer or hospitalization at this time. Our IV proton pump inhibitor is Protonix, this is not 1 that he should have based on his liver disease. They understand the limitations of management. Vital Signs Vital signs: Initial Vital Signs Temperature 97.6 F 12/12/24 21:53 Temperature Source Temporal Artery Scan 12/12/24 21:53 Pulse Rate 86 12/12/24 21:53 Respiratory Rate 16 12/12/24 21:53 Blood Pressure 109/70 12/12/24 21:53 Blood Pressure Mean 83 12/12/24 21:53 Pulse Oximetry 96 12/12/24 21:53 Oxygen Delivery Method Room Air 12/12/24 21:53 Vital Signs Temperature 97.6 F 12/12/24 21:53 Pulse Rate 86 12/12/24 21:53 Respiratory Rate 16 12/12/24 21:53 Blood Pressure 109/70 12/12/24 21:53 Pulse Oximetry 96 12/12/24 21:53 Oxygen Delivery Method Room Air 12/12/24 21:53 Temperature 97.6 F 12/12/24 21:53 Pulse Rate 86 12/12/24 21:53 Respiratory Rate 16 12/12/24 21:53 Blood Pressure 109/70 12/12/24 21:53 Pulse Oximetry 96 12/12/24 22:09 Oxygen Delivery Method Room Air 12/12/24 21:53 Medications Administered Medications: Discontinued Medications Generic Name Dose Route Start Last Admin Trade Name Freq PRN Reason Stop Dose Admin Lidocaine/Aluminum/Magnesium/Simeth 30 ml 12/12/24 22:09 12/12/24 22:35 Gi Cocktail (Visc Lido/Antacid) 30 Ml PO 12/12/24 22:10 30 ml ONCE ONE Administration Morphine Sulfate 2 mg 12/12/24 22:57 12/12/24 23:07 Morphine 2 Mg/Ml Inj IVP 12/12/24 22:58 2 mg ONCE ONE Administration Ondansetron HCl 4 mg 12/12/24 22:57 12/12/24 23:07 Ondansetron 2 Mg/Ml Inj IVP 12/12/24 22:58 4 mg ONCE ONE Administration MDM - Abdominal Pain Lab Data Attestation: I reviewed the patient's lab results. Labs: Lab Results 12/12/24 12/12/24 Range/Units 22:17 22:22 WBC 3.49 L (4.50-11.00) K/uL RBC 4.38 (4.30-5.90) m/uL Hgb 14.8 (13.5-17.5) gm/dL Hct 42.5 (37.0-53.0) % MCV 97 (80-100) fL MCH 34 (26-34) pg MCHC 35 (32-36) gm/dL RDW Coeff of Arelis 14.2 (11.5-15.5) % Plt Count 58 L (140-440) K/uL Neut % (Auto) 77.9 H (42.0-72.0) % Lymph % (Auto) 9.5 L (20-44) % [place] % (Auto) 9.5 (0.0-11.0) % Eos % (Auto) 1.7 (0.0-7.0) % Baso % (Auto) 0.3 (0.0-3.0) % Neut # (Auto) 2.70 (1.7-7.0) K/uL Lymph # (Auto) 0.30 L (0.90-2.90) K/uL [place] # (Auto) 0.30 (0.00-0.90) K/UL Eos # (Auto) 0.10 (0.00-0.50) K/uL Baso # (Auto) 0.00 (0.00-0.30) K/uL Abs Immat Gran (auto) 0.00 (0.00-0.30) K/uL Imm/Tot Granulo (auto) 1.1 % INR 1.24 H (0.91-1.10) APTT 29 (23-33) Seconds Sodium 130 L (135-149) mmol/L Potassium 4.8 (3.6-5.1) mmol/L Chloride 100 (96-114) mmol/L Carbon Dioxide 22 (20-32) mmol/L Anion Gap 8 (7-15) mEq/L BUN 27 (7-30) mg/dL Creatinine 1.5 (0.5-1.5) mg/dL Estimated Creat Clear 35.10 Estimated GFR 48 ml/min Glucose 259 H (60-115) mg/dL Lactate 2.3 H (0.5-1.9) mmol/L Calcium 9.8 (8.4-10.6) mg/dL Total Bilirubin 1.5 (0.1-1.5) mg/dL Direct Bilirubin 0.5 (0.0-0.5) mg/dL AST 61 H (12-35) U/L ALT 62 H (4-50) U/L Alkaline Phosphatase 296 H (40-150) U/L C-Reactive Protein 0.6 (0.5-1.0) mg/dL Total Protein 8.7 H (6.0-8.3) g/dL Albumin 3.5 (3.3-5.0) g/dL Lipase 214 (23-300) U/L POC Creatinine 1.6 H (0.6-1.3) mg/dl Imaging Data CT scan - abdomen: Attestation: I have reviewed the pertinent imaging results. Radiologist's impression: Patient: [facility] Facility:?[facility] Patient ID:?[id number] Site Patient ID:?[id number]. Site :?[id number] Study:?CT-Abdomen/Pelvis W/IV ONLY-12/12/2024 11:13:07 PM Ordering Physician:Tenzin Bianchi Final Report: INDICATION: Epigastric abdominal pain. Known cirrhosis. TECHNIQUE: CT abdomen and pelvis acquired with 66 cc Isovue 370 IV contrast. COMPARISON: CT chest abdomen pelvis 09/02/2024. FINDINGS: Lower chest: Coronary artery calcifications. Bibasilar atelectasis/scarring. Liver: Cirrhotic liver. No acute hepatic abnormality. Gallbladder and bile ducts: No gallstones. No biliary dilatation. Pancreas: Unremarkable. Spleen: Splenomegaly, measuring up to 16 cm with heterogeneous parenchymal enhancement similar to prior exams. Adrenal glands: Unremarkable. Kidneys: Symmetric renal enhancement. No hydronephrosis or hydroureter. No obstructing calculi evident, though evaluation of the distal ureters is limited by streak artifact from hip prostheses. GI tract: Mild distal esophageal wall thickening with questionable mild gastric wall thickening. No bowel obstruction. Colonic diverticulosis without acute diverticulitis. No CT evidence of acute appendicitis. Scattered mild small bowel wall thickening. Vasculature: No abdominal aortic aneurysm. Portosystemic collaterals. Lymph nodes: No suspicious lymphadenopathy. Peritoneum/Abdominal Wall: Small volume abdominopelvic ascites. Ventral abdominal wall hernia containing fat and fluid. No pneumoperitoneum. Pelvis: Limited evaluation of the bladder due to streak artifact from bilateral hip arthroplasty. Bones: Bilateral total hip arthroplasty grossly within normal limits. No acute abnormality. IMPRESSION: 1. Mild distal esophageal wall thickening with questionable mild gastric wall thickening, findings which may reflect sequelae of gastritis/esophagitis. 2. Scattered mild small bowel wall thickening which may reflect sequelae of mild enteritis. 3. Cirrhotic liver with sequelae of portal hypertension. 4. Small volume abdominopelvic ascites. 5. Colonic diverticulosis without acute diverticulitis. 6. Coronary artery calcifications. Please note that all CT scans at this facility use dose modulation, iterative reconstruction, and/or weight-based dosing when appropriate to reduce radiation dose to as low as reasonably achievable. Dictated by Ti Woodruff MD @ 12/12/2024 11:25:53 PM (Electronic Signature) Discharge Plan Discharge Clinical Impression: Esophagitis Gastritis Qualifiers: Gastritis type: unspecified gastritis Chronicity: unspecified Gastritis bleeding: without bleeding Qualified Code(s): K29.70 - Gastritis, unspecified, without bleeding Patient Disposition: Home, Self-Care Condition: Stable Instructions: Gastritis (ED), Diet for Stomach Ulcers and Gastritis (ED), Esophagitis (ED) Additional Instructions: Stay on the omeprazole. Have sent in some sucralfate which you need to clear with your liver team preferably before starting it. This can help coat the esophagus and stomach but your dosing may need to be reduced because of your kidneys. Please call your liver team in the morning to let them know about your ED visit, can review the CT with them and let them know that I did ask our radiology department to push the CT images to [place]. I cannot have you go up on your omeprazole does with out approval from your liver team. Again, I stressed that they need to approve the sucralfate as well. Review the handout on dietary recommendations. I would avoid peppers at this time, it is possible that that may have been what bother you in the sandwich you ate. Activity Level: Activity as Tolerated Prescriptions: New sucralfate 1 gram tablet 1 g PO BID Qty: 14 0RF No Action Jardiance 10 mg tablet 10 mg PO DAILY cholecalciferol (vitamin D3) 125 mcg (5,000 unit) capsule 125 mcg PO DAILY ferrous gluconate 324 mg (38 mg iron) tablet 324 mg PO DAILY omeprazole 20 mg capsule,delayed release(DR/EC) 20 mg PO DAILY metformin 500 mg tablet extended release 24 hr 500 mg PO BIDWM rosuvastatin 20 mg tablet 20 mg PO HS sennosides-docusate sodium 8.6-50 mg tablet 2 tab-cap PO DAILY PRN multivitamin [Daily Multi-Vitamin] Tablet 1 tab PO DAILY furosemide 20 mg Tablet 40 mg PO DAILY Qty: 60 0RF lactulose 20 gram packet 20 g PO BID Qty: 60 0RF Rx Instructions: give at 9am and 4 pm may hold 4 pm dose if he's had three BMs that day may give a 7 pm dose if he's NOT had 2-3 BMs that day. max dose is 4 doses, 2 hours apart spironolactone 100 mg Tablet 200 mg PO DAILY Qty: 60 0RF thiamine mononitrate (vit B1) [Vitamin B-1 (mononitrate)] 100 mg Tablet 200 mg PO DAILY Qty: 30 0RF Xifaxan 550 mg tablet 550 mg PO BID Qty: 60 2RF lactulose 10 gram/15 mL solution 20 g PO BID Qty: 3785 0RF Rx Instructions: give at 9am and 4 pm can hold the 4 pm dose if he is already had 2-3 BMs that day can give another dose at 6 pm if he hasn't had 2-3 BM's that day Max is 4 doses (80mg) given 2 hours apart per 24 hours Follow Up/Referrals: Klaudia Virk DO [Primary Care Provider, Family Practice] Stand Alone Forms: qLearningth Info Instructions
[2024-12-12 22:09] VITALS: O2SAT 96
--- NOTE | 2024-12-12 22:09 | CRLHL7_ITS ---
For Patients: As a result of the Century Cures Act, medical imaging exams and procedure reports are released immediately into your electronic medical record. You may view this report before your referring provider. If you have questions, please contact your health care provider. INDICATION: Epigastric abdominal pain. Known cirrhosis. TECHNIQUE: CT abdomen and pelvis acquired with 66 cc Isovue 370 IV contrast. COMPARISON: CT chest abdomen pelvis 09/02/2024. FINDINGS: Lower chest: Coronary artery calcifications. Bibasilar atelectasis/scarring. Liver: Cirrhotic liver. No acute hepatic abnormality. Gallbladder and bile ducts: No gallstones. No biliary dilatation. Pancreas: Unremarkable. Spleen: Splenomegaly, measuring up to 16 cm with heterogeneous parenchymal enhancement similar to prior exams. Adrenal glands: Unremarkable. Kidneys: Symmetric renal enhancement. No hydronephrosis or hydroureter. No obstructing calculi evident, though evaluation of the distal ureters is limited by streak artifact from hip prostheses. GI tract: Mild distal esophageal wall thickening with questionable mild gastric wall thickening. No bowel obstruction. Colonic diverticulosis without acute diverticulitis. No CT evidence of acute appendicitis. Scattered mild small bowel wall thickening. Vasculature: No abdominal aortic aneurysm. Portosystemic collaterals. Lymph nodes: No suspicious lymphadenopathy. Peritoneum/Abdominal Wall: Small volume abdominopelvic ascites. Ventral abdominal wall hernia containing fat and fluid. No pneumoperitoneum. Pelvis: Limited evaluation of the bladder due to streak artifact from bilateral hip arthroplasty. Bones: Bilateral total hip arthroplasty grossly within normal limits. No acute abnormality. IMPRESSION: 1. Mild distal esophageal wall thickening with questionable mild gastric wall thickening, findings which may reflect sequelae of gastritis/esophagitis. 2. Scattered mild small bowel wall thickening which may reflect sequelae of mild enteritis. 3. Cirrhotic liver with sequelae of portal hypertension. 4. Small volume abdominopelvic ascites. 5. Colonic diverticulosis without acute diverticulitis. 6. Coronary artery calcifications. Please note that all CT scans at this facility use dose modulation, iterative reconstruction, and/or weight-based dosing when appropriate to reduce radiation dose to as low as reasonably achievable. Dictated by Ti Woodruff MD @ 12/12/2024 11:25:53 PM (Electronically Signed)
[2024-12-12 22:26] LABS: Lactate* 2.3 mmol/L (0.5-1.9)
[2024-12-12 22:28] LABS: Creatinine, Point-of-Care* 1.6 mg/dl (0.6-1.3)
[2024-12-12] MEDS: GI COCKTAIL (VISC LIDO/ANTACID) 30 ML PO (22:35)
[2024-12-12 22:45] LABS: Hematocrit* 42.5 % (37.0-53.0); Hemoglobin* 14.8 gm/dL (13.5-17.5); Immature Granulocytes Pct Auto 1.1 %; Mean Corpuscular HGB Conc 35 gm/dL (32-36); Mean Corpuscular Hemoglobin 34 pg (26-34); Mean Corpuscular Volume 97 fL (80-100); RDW Coefficient of Variation % 14.2 % (11.5-15.5); Red Blood Count* 4.38 m/uL (4.30-5.90); White Blood Count* 3.49 K/uL (4.50-11.00)
[2024-12-12 22:51] LABS: INR 1.24 (0.91-1.10); Immature Granulocytes Abs Auto 0.00 K/uL (0.00-0.30); Lymphocytes Absolute Auto 0.30 K/uL (0.90-2.90); Prothrombin Time 16.5 Seconds; Slide Review Reflex No
[2024-12-12] MEDS: ONDANSETRON 2 MG/ML inj 4 MG IVP (23:07)
[2024-12-12 23:35] LABS: Albumin* 3.5 g/dL (3.3-5.0); Chloride* 100 mmol/L (96-114); Sodium* 130 mmol/L (135-149)
[2024-12-12 23:36] LABS: Potassium* 4.8 mmol/L (3.6-5.1)
[2024-12-12 23:38] LABS: Alanine Aminotransferase* 62 U/L (4-50); Alkaline Phosphatase* 296 U/L (40-150); Anion Gap 8 mEq/L (7-15); Aspartate Amino Transferase* 61 U/L (12-35); Bilirubin Direct* 0.5 mg/dL (0.0-0.5); Bilirubin Total* 1.5 mg/dL (0.1-1.5); Blood Urea Nitrogen* 27 mg/dL (7-30); Carbon Dioxide* 22 mmol/L (20-32); Creatinine* 1.5 mg/dL (0.5-1.5); Est. Creatinine Clearance* 35.10; Estimated Glomerular Filt Rate 48 ml/min; Total Protein* 8.7 g/dL (6.0-8.3)
[2024-12-12 23:39] LABS: Calcium* 9.8 mg/dL (8.4-10.6); Glucose* 259 mg/dL (60-115)
[2024-12-12 23:51] LABS: Ammonia* 31.5 umol/L (13.1-30.0)
[2024-12-13 00:36] VITALS: BP 98/70; PULSE 58; RESP 16; O2SAT 96
== END 2024-12-13 00:38 | disposition home or self-care (01) ==
PROVIDERS: Emergency Provider Family Medicine; PCP Family Medicine
DX: K29.70 Gastritis, unspecified, without bleeding (principal); K20.90 Esophagitis, unspecified without bleeding
CPT/HCPCS: 36415; 74177; 80053; 82140; 82248; 82565; 83605; 83690; 85025; 85610; 85730; 86140; 94761; 96374; 96375; 99284; A9270; J2270; J2405; Q9967